=== PATIENT | female | born 1940 | race Caucasian/White ===

== ENCOUNTER → 2020-07-30 11:50 | Outpatient (BNVA) | payer MEDICARE, SELFPAY | PROVIDERS: PCP Internal Medicine; Referring Provider Internal Medicine; Visit Provider Internal Medicine Gastroenterology | DX: K21.9 Gastro-esophageal reflux disease without esophagitis (principal); K59.00 Constipation, unspecified; D50.9 Iron deficiency anemia, unspecified; R15.9 Full incontinence of feces; Z12.11 Encounter for screening for malignant neoplasm of colon; Z79.84 Long term (current) use of oral hypoglycemic drugs; Z87.891 Personal history of nicotine dependence | CPT/HCPCS: Q3014 ==

== ENCOUNTER → 2020-10-15 12:28 | Outpatient (BNVA) | payer MEDICARE, SELFPAY | PROVIDERS: PCP Internal Medicine; Visit Provider Internal Medicine Cardiovascular Disease | DX: Z45.018 Encounter for adjustment and management of other part of cardiac pacemaker (principal) | CPT/HCPCS: 99212 ==

== ENCOUNTER 2020-10-26 08:59 | Outpatient (REF) | payer MEDICARE, SELFPAY ==
[2020-10-26 09:34] LABS: MANUAL DIFF FLAG NO
[2020-10-26 09:40] LABS: Glucose Urine UA NEG (NEG); Leukocyte Esterase Urine 1+ (NEG); Nitrite Urine NEG (NEG); PH 5.5 (5.0-8.0); Specific Gravity - Urine 1.025 (1.005-1.025); UACC Culture Trigger YES; Urine Blood NEG (NEG); Urine Ketones NEG (NEG); Urine Protein NEG (NEG-TRACE)
[2020-10-26 09:41] LABS: Appearance Urine CLEAR; Color Urine YELLOW
[2020-10-26 09:44] LABS: Basophils Percent Auto 0.3 % (0-2); Eosinophils Absolute Auto 0.1 X10*3/uL (0.0-0.4); Eosinophils Percent Auto 1.4 % (0-4); Hematocrit 34.5 % (37-47); Hemoglobin 11.1 g/dl (12.0-16.0); Imm Gran Abs Auto 0.03 X10*3/uL (0.00-0.03); Imm Gran Pct Auto 0.5 % (0.0-0.4); Lymphocytes Absolute Auto 1.6 X10*3/uL (1.2-4.9); Mean Corpuscular HGB Conc 32.2 g/dl (31.0-35.0); Mean Corpuscular Hemoglobin 30.1 pg (27.0-33.0); Mean Corpuscular Volume 93.5 fL (80-98); Mean Platelet Volume 10.5 fL (9.4-12.3); Monocytes Absolute Auto 0.6 X10*3/uL (0.1-1.2); Monocytes Percent Auto 9.7 % (2-11); Neutrophils Absolute Auto 3.5 X10*3/uL (2.0-8.3); Neutrophils Percent Auto 61.1 % (45-73); Platelet Count 288 X10*3/uL (160-400); Red Blood Count 3.69 X10*6/uL (4.20-5.50); Red Cell Distribution Width 13.7 % (11.0-16.0); White Blood Count 5.8 X10*3/uL (4.8-10.8)
[2020-10-26 10:05] LABS: Alanine Aminotransferase 10 U/L (0-31); Albumin Level 4.6 g/dL (3.5-5.0); Alkaline Phosphatase 72 U/L (39-117); Anion Gap 16 (12-20); Aspartate Amino Transferase 18 U/L (5-31); Bilirubin Total 0.5 mg/dL (0.0-1.0); Blood Urea Nitrogen 22 mg/dL (9-16); Calcium 9.1 mg/dL (8.4-10.2); Carbon Dioxide 20 mmol/L (22-29); Chloride 111 mmol/L (96-108); Cholesterol 132 mg/dL; Estimated Glomerular Filt Rate 33; Glucose Fasting 122 mg/dL (60-99); HDL Cholesterol 60 mg/dL; LDL Cholesterol Calculated 56 mg/dl; Potassium 4.5 mmol/L (3.3-5.1); Sodium 142 mmol/L (135-145); Total Protein 7.6 g/dL (6.5-8.0); Triglycerides 83 mg/dL
[2020-10-26 10:28] LABS: TSH reflex Free T4 1.53 uIU/mL (0.32-4.0)
[2020-10-26 11:16] LABS: Bacteria Urine TRACE /LPF; Mucus Urine 1+ /LPF; RBC Urine 0 /HPF (0); Squamous Epithelial Cell Urine 1+ /LPF
[2020-10-30 18:22] LABS: Levetiracetam Keppra 66.7 mcg/mL (12.0-46.0)
== END 2020-10-26 09:00 | disposition home or self-care (01) ==
LOC: HO.LAB 08:59
PROVIDERS: PCP Internal Medicine; Visit Provider Internal Medicine
DX: D64.9 Anemia, unspecified (principal); E53.8 Deficiency of other specified B group vitamins; K21.9 Gastro-esophageal reflux disease without esophagitis; E78.00 Pure hypercholesterolemia, unspecified; E11.40 Type 2 diabetes mellitus with diabetic neuropathy, unspecified; G40.909 Epilepsy, unspecified, not intractable, without status epilepticus; E66.3 Overweight
CPT/HCPCS: 36415; 80053; 80061; 80177; 81001; 81003; 82043; 84443; 85025; 87086

== ENCOUNTER 2021-04-20 12:58 | Outpatient (REF) | payer MEDICARE, SELFPAY ==
--- NOTE | ~2021-04-20 | MM_ITS ---
EXAMINATION: BONE DENSITOMETRY CLINICAL INDICATION: Asymptomatic menopausal state. COMPARISON: Baseline BD dated 03/27/2008. TECHNIQUE: Using a [employer] DXA System (software version: 13.1) manufactured by [employer], dual-energy x-ray absorptiometry was performed of the lumbar spine and left hip. The images are of good technical quality. Summary results are attached. FINDINGS: AP SPINE L1-L4: Current: BMD 0.847 g/cm2, Z-score -0.4, T-score -2.8, osteoporosis, 1.6% increase from baseline (<5% change is not significant). Baseline: BMD 0.834 g/cm2. LEFT FEMUR, NECK: Current: BMD 0.607 g/cm2, Z-score -0.6, T-score -3.1, osteoporosis. Baseline: BMD 0.682 g/cm2. LEFT FEMUR, TOTAL: Current: BMD 0.703 g/cm2, Z-score 0.0, T-score -2.4, osteopenia, 10.9% decrease from baseline (<5% change is not significant). Baseline: BMD 0.789 g/cm2. IDENTIFIED RISK FACTORS: Early menopause, secondary osteoporosis, hysterectomy, unilateral oophorectomy, history of fracture (adult). HISTORY OF FRACTURE: Ankle. MEDICATIONS: Calcium supplements or multivitamin, vitamin D. MM/XR DEXA axial skeleton IMPRESSION: 1. DIAGNOSIS: Osteoporosis based on the lowest T-score value of -3.1 in the femoral neck applying World Health Organization criteria. 2. 10-YEAR FRACTURE RISK PREDICTION, FRAX: Major osteoporotic fracture (clinical spine, forearm, hip or shoulder) 23.2%. Hip fracture 8.8%. 3. Treatment Recommendations: NOF guidelines recommend consideration for treatment in postmenopausal women and men age 50 and older presenting with the following: -A hip or vertebral (clinical or morphometric) fracture. -T-score less than or equal to -2.5 at the femoral neck or spine after appropriate evaluation to exclude secondary causes. -Low bone mass at the hip or spine and a 10-year fracture probability by FRAX of greater than or equal to 3% for hip fracture or greater than or equal to 20% for major osteoporotic fracture based on the [place] adapted WHO algorithm. 4. Other Recommendations: All treatment decisions require clinical judgment and consideration of individual patient factors, including patient preferences, comorbidities, previous drug use, risk factors not captured in the FRAX model (e.g. frailty, falls, vitamin D deficiency, increased bone turnover, interval significant decline in bone density) and possible under or overestimation of fracture risk by FRAX. Additional medical evaluation for secondary cause of low bone mineral density may be appropriate. FUTURE SCAN RECOMMENDATION: People with diagnosed cases of osteoporosis or at high risk for fracture should have regular bone mineral density tests. For patients eligible for Medicare, routine testing is allowed once every 2 years. The testing frequency can be increased to one year for patients who have rapidly progressing disease, those who are receiving or discontinuing medical therapy to restore bone mass, or have additional risk factors.
== END 2021-04-20 12:59 | disposition home or self-care (01) ==
LOC: HO.MAMMO 12:58
PROVIDERS: PCP Internal Medicine; Visit Provider Internal Medicine
DX: Z13.820 Encounter for screening for osteoporosis (principal); M81.0 Age-related osteoporosis without current pathological fracture; Z78.0 Asymptomatic menopausal state; Z98.890 Other specified postprocedural states; Z87.81 Personal history of (healed) traumatic fracture
CPT/HCPCS: 77080

== ENCOUNTER 2021-06-10 09:57 | Outpatient (REF) | payer MEDICARE, SELFPAY ==
[2021-06-10 10:10] LABS: MANUAL DIFF FLAG NO
[2021-06-10 10:53] LABS: Basophils Percent Auto 0.7 % (0-2); Eosinophils Absolute Auto 0.1 X10*3/uL (0.0-0.4); Eosinophils Percent Auto 1.8 % (0-4); Hematocrit 32.9 % (37-47); Hemoglobin 10.6 g/dl (12.0-16.0); Imm Gran Abs Auto 0.02 X10*3/uL (0.00-0.03); Imm Gran Pct Auto 0.4 % (0.0-0.4); Lymphocytes Absolute Auto 1.8 X10*3/uL (1.2-4.9); Lymphocytes Percent Auto 40.4 % (20-40); Mean Corpuscular HGB Conc 32.2 g/dl (31.0-35.0); Mean Corpuscular Volume 90.1 fL (80-98); Mean Platelet Volume 10.8 fL (9.4-12.3); Monocytes Absolute Auto 0.5 X10*3/uL (0.1-1.2); Monocytes Percent Auto 11.9 % (2-11); Neutrophils Percent Auto 44.8 % (45-73); Platelet Count 313 X10*3/uL (160-400); Red Blood Count 3.65 X10*6/uL (4.20-5.50); Red Cell Distribution Width 14.4 % (11.0-16.0); White Blood Count 4.5 X10*3/uL (4.8-10.8)
[2021-06-10 11:16] LABS: Appearance Urine CLEAR; Color Urine YELLOW; Glucose Urine UA NEG (NEG); Leukocyte Esterase Urine NEG (NEG); Nitrite Urine NEG (NEG); Specific Gravity - Urine 1.015 (1.005-1.025); Urine Blood NEG (NEG); Urine Ketones NEG (NEG); Urine Protein NEG (NEG-TRACE)
[2021-06-10 11:21] LABS: Alanine Aminotransferase 21 U/L (0-31); Albumin Level 4.4 g/dL (3.5-5.0); Alkaline Phosphatase 86 U/L (39-117); Anion Gap 12 (12-20); Aspartate Amino Transferase 27 U/L (5-31); Bilirubin Total 0.7 mg/dL (0.0-1.0); Blood Urea Nitrogen 15 mg/dL (9-16); Calcium 9.7 mg/dL (8.4-10.2); Carbon Dioxide 25 mmol/L (22-29); Chloride 109 mmol/L (96-108); Cholesterol 147 mg/dL; Estimated Glomerular Filt Rate 59; Glucose Fasting 130 mg/dL (60-99); HDL Cholesterol 51 mg/dL; Iron 73 mcg/dL (30-160); LDL Cholesterol Calculated 78 mg/dl; Percent Iron Saturation 20 % (15-50); Potassium 5.2 mmol/L (3.3-5.1); Sodium 141 mmol/L (135-145); Total Iron Binding Capacity 358 mcg/dL (228-428); Total Protein 7.3 g/dL (6.5-8.0); Triglycerides 90 mg/dL; Unsaturated Iron Binding 285 ug/dL
[2021-06-10 11:25] LABS: Estimated Average Glucose 157 mg/dL; Hemoglobin A1c % 7.1 %
[2021-06-10 11:46] LABS: TSH reflex Free T4 1.34 uIU/mL (0.32-4.0); Vitamin D 25-OH Total 39.9 ng/mL (>30)
[2021-06-10 11:50] LABS: Creatinine Urine 73.17 mg/dL
[2021-06-10 11:56] LABS: Folate 18.7 ng/mL (> or = 4.0); Vitamin B12 1291 pg/mL (200-900)
[2021-06-14 07:37] LABS: Levetiracetam Keppra 7.8 mcg/mL (12.0-46.0)
== END 2021-06-10 09:58 | disposition home or self-care (01) ==
LOC: HO.LAB 09:57
PROVIDERS: PCP Internal Medicine; Visit Provider Internal Medicine
DX: E78.00 Pure hypercholesterolemia, unspecified (principal); E55.9 Vitamin D deficiency, unspecified; D50.9 Iron deficiency anemia, unspecified; D64.9 Anemia, unspecified; E53.8 Deficiency of other specified B group vitamins; F03.90 Unspecified dementia, unspecified severity, without behavioral disturbance, psychotic disturbance, mood disturbance, and anxiety; I10 Essential (primary) hypertension; K21.9 Gastro-esophageal reflux disease without esophagitis; E11.40 Type 2 diabetes mellitus with diabetic neuropathy, unspecified; G47.62 Sleep related leg cramps; E66.3 Overweight; Z68.25 Body mass index [BMI] 25.0-25.9, adult; R00.1 Bradycardia, unspecified; G40.909 Epilepsy, unspecified, not intractable, without status epilepticus; K59.00 Constipation, unspecified; Z79.899 Other long term (current) drug therapy; Z71.3 Dietary counseling and surveillance
CPT/HCPCS: 36415; 80053; 80061; 80177; 81003; 82043; 82306; 82607; 82746; 83036; 83540; 84443; 85025; 99212

== ENCOUNTER 2021-09-27 09:52 | Outpatient (REF) | payer MEDICARE, SELFPAY ==
[2021-09-27 11:48] LABS: Hemoglobin 10.1 g/dl (12.0-16.0); Mean Corpuscular HGB Conc 31.6 g/dl (31.0-35.0); Mean Corpuscular Hemoglobin 28.9 pg (27.0-33.0); Mean Corpuscular Volume 91.4 fL (80.0-98.0); Mean Platelet Volume 11.1 fL (9.4-12.3); Platelet Count 227 X10*3/uL (160-400); Red Cell Distribution Width 14.9 % (11.0-16.0); White Blood Count 4.4 X10*3/uL (4.8-10.8)
[2021-09-27 14:40] LABS: Ferritin 39 ng/mL (10-250)
== END 2021-09-27 09:53 | disposition home or self-care (01) ==
LOC: HO.LAB 09:52
PROVIDERS: PCP Internal Medicine; Referring Provider Internal Medicine; Visit Provider Internal Medicine Gastroenterology
DX: D50.9 Iron deficiency anemia, unspecified (principal); K21.9 Gastro-esophageal reflux disease without esophagitis; K59.00 Constipation, unspecified; E53.8 Deficiency of other specified B group vitamins
CPT/HCPCS: 36415; 82728; 85027; 99212

== ENCOUNTER → 2021-09-28 11:02 | Outpatient (BNV) | payer MEDICARE, SELFPAY | PROVIDERS: PCP Internal Medicine; Referring Provider Internal Medicine Gastroenterology; Visit Provider Internal Medicine Medical Oncology | DX: D64.9 Anemia, unspecified (principal) | CPT/HCPCS: 99203; 99213; 99214 ==

== ENCOUNTER 2021-09-29 | Outpatient (REF) | payer MEDICARE, SELFPAY ==
[2021-10-04 14:42] LABS: OBS Int Ctl Valid YES; OBS1 NEGATIVE (NEGATIVE); OBS2 NEGATIVE (NEGATIVE); OBS3 NEGATIVE (NEGATIVE)
== END 2021-09-29 00:01 | disposition home or self-care (01) ==
LOC: HO.LNP
PROVIDERS: Visit Provider Internal Medicine Gastroenterology
DX: D50.9 Iron deficiency anemia, unspecified (principal)
CPT/HCPCS: 82270

== ENCOUNTER → 2021-10-14 13:10 | Outpatient (BNVA) | payer MEDICARE, SELFPAY | PROVIDERS: PCP Internal Medicine; Referring Provider Internal Medicine; Visit Provider Internal Medicine Cardiovascular Disease | DX: Z45.018 Encounter for adjustment and management of other part of cardiac pacemaker (principal); T82.847A Pain due to cardiac prosthetic devices, implants and grafts, initial encounter | CPT/HCPCS: 99212 ==

== ENCOUNTER → 2021-11-05 10:58 | Outpatient (BNVA) | payer MEDICARE, SELFPAY | PROVIDERS: PCP Internal Medicine; Visit Provider Surgery | DX: I49.5 Sick sinus syndrome (principal); Z79.899 Other long term (current) drug therapy; Z79.84 Long term (current) use of oral hypoglycemic drugs; Z87.891 Personal history of nicotine dependence; Z95.0 Presence of cardiac pacemaker | CPT/HCPCS: 99212 ==

== ENCOUNTER 2021-11-10 07:24 | Day surgery (SDC) | payer MEDICARE, SELFPAY ==
--- NOTE | 2021-11-09 10:03 | P.CONAN_ITS ---
Documented by User: Latonya Nguyen NP 11/09/21 10:07 HPI - Anesthesia Eval Consult details Narrative: 81yo F for Pacemaker Generator Change,pocket repair Pacer in situ (SSS) - significant mobility in pocket per cardiac eval PMFSH Active Problems Active Problems: All Active Problems (Updated 10/22/21 @ 12:45 by Ashley Lira PA-C) Dementia without behavioral disturbance (Acute) Epilepsy (Acute ~1998) Pain in pacemaker pocket (Acute) Cardiac pacemaker in situ (Acute ~2018) Sick sinus syndrome (Acute) Sinus bradycardia (Acute) Neuropathy (Acute) Diabetes mellitus (Acute) Pure hypercholesterolemia (Acute) Iron deficiency anemia (Acute) Normochromic normocytic anemia (Acute) Anemia (Acute) GERD (gastroesophageal reflux disease) (Acute) Constipation (Acute) Vitamin D deficiency (Acute) Vitamin B12 deficiency (Acute) Left arm swelling (Acute) Swelling of lymph node (Acute) Glaucoma (Acute) Insomnia (Acute) Nocturnal leg cramps (Acute) Degenerative joint disease (Acute) Osteoporosis (Acute ~2007) Overweight (BMI 25.0-29.9) (Acute) Post-menopausal (Acute) Past Medical History Medical History Anemia Cardiac pacemaker in situ (~2018) Constipation Degenerative joint disease Dementia without behavioral disturbance Diabetes mellitus Epilepsy (~1998) GERD (gastroesophageal reflux disease) Insomnia Left arm swelling Neuropathy Nocturnal leg cramps Osteoporosis (~2007) Overweight (BMI 25.0-29.9) Post-menopausal Pure hypercholesterolemia Sick sinus syndrome Sinus bradycardia Swelling of lymph node Tubular adenoma of colon (~2019) Vitamin B12 deficiency Vitamin D deficiency Family History Family History Father Medical history unknown Mother No problems noted. Daughter No problems noted. Son No problems noted. Other Substance use disorder Surgical History Surgical History History of ankle surgery (~2011) History of colonoscopy History of endoscopy History of hysterectomy History of pacemaker (~2018) History of partial gastrectomy Social History Social History Household Members: Family and Other Housing: House Are you a primary customer care voice consultant to a significant other at home: No Do you presently have visiting nurse or other home services: No Alcohol intake: never Patient Tobacco Use Status: Former Tobacco user Quit Date: 2011 Tobacco use type: Cigarette Second Hand Smoke Exposure: No Use of substances other than those prescribed or required for medical reasons: No Are you DNR?: No Advance Directives: No Advance Directives Information Provided: Yes 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 Meds Allergies Allergy/AdvReac Type Severity Reaction Status Date / Time Penicillins Allergy Intermediate RASH Verified 11/05/21 11:35 Home Medications Medication Instructions Recorded Confirmed Last Taken Type cyanocobalamin (vitamin B-12) 1,000 mcg PO DAILY 06/09/20 11/06/21 Unknown History 1,000 mcg capsule polyethylene glycol 3350 17 17 g PO DAILY 06/09/20 11/06/21 Unknown History gram/dose oral powder brimonidine 0.1 % eye drops 1 drp OPHTHALMIC (EYE) BID 12/03/20 11/06/21 Unknown History ropinirole 0.25 mg tablet 0.25 mg PO QPM 12/03/20 11/06/21 Unknown History cholecalciferol (vitamin D3) 50 50 mcg PO BID 09/28/21 11/06/21 Unknown History mcg (2,000 unit) tablet (Vitamin D3) levetiracetam 750 mg tablet 750 mg PO BID tab 10/14/21 11/06/21 Unknown History Exam Exam Date and Time: November 09, 2021 1003 Pertinent Lab Results Pertinent Lab Results: Laboratory Tests 09/28/21 09/28/21 13:09 13:09 WBC 4.9 Hgb 10.7 L Hct 34.0 L Plt Count 261 Sodium 142 Potassium 4.6 Chloride 112 H Carbon Dioxide 22 BUN 17 H Creatinine 0.92 Narrative Narrative: Cardiac Device Check 09/2021 Details: Dual-chamber Med[employer]onic pacemaker in place.? Programmed in MVP mode with rate response at 60 beats per minute.? No significant episodes of atrial fibrillation noted.? Atrial pacing 48.4% of the time.? Atrial ventricular sensing is adequate.? Battery life is excellent.? Atrial and ventricular pacing thresholds are excellent and reprogrammed to enhance battery life.? Pacing lead impedance is stable Assessment and Plan Assessment Anesthesia Assessment: Chart Reviewed Documented by User: Hong Alicea MD 11/10/21 09:47 [facility] Past Medical History Medical History Anemia Cardiac pacemaker in situ (~2018) Constipation Degenerative joint disease Dementia without behavioral disturbance Diabetes mellitus Epilepsy (~1998) GERD (gastroesophageal reflux disease) Insomnia Left arm swelling Neuropathy Nocturnal leg cramps Osteoporosis (~2007) Overweight (BMI 25.0-29.9) Post-menopausal Pure hypercholesterolemia Sick sinus syndrome Sinus bradycardia Swelling of lymph node Tubular adenoma of colon (~2019) Vitamin B12 deficiency Vitamin D deficiency Family History Family History Father Medical history unknown Mother No problems noted. Daughter No problems noted. Son No problems noted. Other Substance use disorder Family history of problems with anesthesia: No Surgical History Surgical History History of ankle surgery (~2011) History of colonoscopy History of endoscopy History of hysterectomy History of pacemaker (~2018) History of partial gastrectomy History of Problems with Anesthesia: No Social History Social History Household Members: Family and Other Housing: House Are you a primary customer care voice consultant to a significant other at home: No Do you presently have visiting nurse or other home services: No Alcohol intake: never Patient Tobacco Use Status: Former Tobacco user Quit Date: 2011 Tobacco use type: Cigarette Second Hand Smoke Exposure: No Use of substances other than those prescribed or required for medical reasons: No Are you DNR?: No Advance Directives: No Advance Directives Information Provided: Yes 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 Meds Allergies Allergy/AdvReac Type Severity Reaction Status Date / Time Penicillins Allergy Intermediate RASH Verified 11/05/21 11:35 Home Medications Medication Instructions Recorded Confirmed Last Taken Type cyanocobalamin (vitamin B-12) 1,000 mcg PO DAILY 06/09/20 11/06/21 Unknown History 1,000 mcg capsule polyethylene glycol 3350 17 17 g PO DAILY 06/09/20 11/06/21 Unknown History gram/dose oral powder brimonidine 0.1 % eye drops 1 drp OPHTHALMIC (EYE) BID 12/03/20 11/06/21 Unknown History ropinirole 0.25 mg tablet 0.25 mg PO QPM 12/03/20 11/06/21 Unknown History cholecalciferol (vitamin D3) 50 50 mcg PO BID 09/28/21 11/06/21 Unknown History mcg (2,000 unit) tablet (Vitamin D3) levetiracetam 750 mg tablet 750 mg PO BID tab 10/14/21 11/06/21 Unknown History Exam Airway Mallampati Class: II TM Dist: >3cm Neck ROM: Full Loose/Missing/Broken Teeth: Yes Heart: rrr+[id number], paced Lungs: cta b/l Assessment and Plan Assessment Anesthesia Assessment: Anesthesia Plan Discussed Final Anesthetic Review Family History of Problems with Anesthesia: No History of Problems with Anesthesia: No NPO: Yes ASA Class: III Final Preanesthetic Review: No Changes in Pt Med Stat, Meds/Allgs Chart Reviewed, Consent Obtained/Reviewed and Anes Risks/Benef Reviewed Patient Risk: Intermediate Procedure Risk: Low Assessment/Block/Sedation in SS: Assess/Block/Sedation-SS Anesthetic Plan Anesthetic Plan: MAC: and Agree w/ Assess. and Plan Disposition: Standard PACU
[2021-11-10] VITALS (8 sets, daily range): BP systolic 96–153; BP diastolic 47–78; PULSE 60–69; RESP 18; TEMP 36.8–36.9; O2SAT 98–100; BMI 22.8
[2021-11-10 08:27] LABS: Glucose, Whole Blood 108 mg/dL (60-115)
[2021-11-10] MEDS: Lactated Ringers 1,000 ML 100 ML IVCONT (08:40)
--- NOTE | 2021-11-10 09:06 | MHC.SHP ---
Pre-Procedural Eval Section A Date of Service: 11/10/21 The patient is an INPATIENT: No The History & Physical has been completed within 30 days and I have reviewed it.: Yes Section B Chief Complaint: Sick sinus syndrome Allergies: Allergies Allergy/AdvReac Type Severity Reaction Status Date / Time Penicillins Allergy Intermediate RASH Verified 11/05/21 11:35 Plan I have reviewed the history and physical and performed a pertinent physical examination on my patient. No changes have occurred unless specified.
[2021-11-10] MEDS: vancomycin HCL 1,000 MG in 0.9 % Sodium Chloride 250 ML 270 MG IV (09:42)
--- NOTE | 2021-11-10 11:01 | W.PM.OPN ---
Operative Note Operative Note Date of Service: 11/10/21 Narrative: Preoperative diagnosis: Pacemaker pocket dysfunction with movement of the device Postoperative diagnosis: Same Operation: pacemaker pocket revision with Tyrex mesh implantation Surgeon: Dano Arriola MD Specimens: None EBL: 5 cc Operation in detail: The patient was brought to the operating room, placed supine on the operating room table, anesthesia moderate of ices were placed, and the patient was gently sedated. A time-out was performed confirming the correct patient site and procedure. After injection of local anesthetic, a 3 cm incision was made in the left infraclavicular region over her previous scar. Electrocautery was used sparingly and most of the dissection was done with a Metzenbaum scissor. We carried the dissection down to the level of the generator and the leads were appropriately positioned behind the generator. We then opened the capsule with a fresh blade and extended this with the Metzenbaum scissor. We were able to pull the generator out of the pocket with some of the lead. The pocket was then expanded with combination of blunt and sharp dissection. We then placed the generator inside of the antibiotic mesh and using a 2 0 silk suture passed this through the suture hole in the generator and into the fascia medially of the pectoralis. This was then tacked down taught securing the generator to the pectoralis fascia. The generator with the mesh around it was then placed into the pocket which did fit quite snugly. The wound was then closed with a deep running 3-0 Vicryl suture followed by running 3-0 Vicryl suture and Dermabond glue in the skin. The patient was then brought back to the Recovery room in stable condition.
[2021-11-10] MEDS: Acetaminophen 325 MG TABLET 650 MG PO (11:47)
== END 2021-11-10 12:59 | disposition home or self-care (01) ==
PROVIDERS: PCP Internal Medicine; Visit Provider Surgery
PROC: (CPT 33222; principal; 2021-11-10 09:20)
DX: T82.128A Displacement of other cardiac electronic device, initial encounter (principal); T82.847A Pain due to cardiac prosthetic devices, implants and grafts, initial encounter; G89.18 Other acute postprocedural pain; Y83.8 Other surgical procedures as the cause of abnormal reaction of the patient, or of later complication, without mention of misadventure at the time of the procedure; Y92.9 Unspecified place or not applicable; Z95.0 Presence of cardiac pacemaker; E11.9 Type 2 diabetes mellitus without complications; Z79.84 Long term (current) use of oral hypoglycemic drugs; Z88.0 Allergy status to penicillin
CPT/HCPCS: 33222; 82947; J1100; J2405; J3010; J3370

== ENCOUNTER 2021-11-25 08:33 | Outpatient (REF) | payer MEDICARE, SELFPAY ==
[2021-11-25 08:43] LABS: MANUAL DIFF FLAG NO
[2021-11-25 09:43] LABS: Basophils Percent Auto 0.8 % (0-2); Eosinophils Absolute Auto 0.1 X10*3/uL (0.0-0.4); Eosinophils Percent Auto 1.9 % (0-4); Hemoglobin 10.6 g/dl (12.0-16.0); Imm Gran Abs Auto 0.01 X10*3/uL (0.00-0.03); Imm Gran Pct Auto 0.2 % (0.0-0.4); Lymphocytes Percent Auto 42.4 % (20-40); Mean Corpuscular HGB Conc 31.2 g/dl (31.0-35.0); Mean Corpuscular Hemoglobin 29.2 pg (27.0-33.0); Mean Corpuscular Volume 93.7 fL (80.0-98.0); Mean Platelet Volume 11.2 fL (9.4-12.3); Monocytes Absolute Auto 0.4 X10*3/uL (0.1-1.2); Monocytes Percent Auto 9.1 % (2-11); Neutrophils Absolute Auto 2.2 x10*3/uL (2.0-8.3); Neutrophils Percent Auto 45.6 % (45-73); Platelet Count 246 X10*3/uL (160-400); Red Blood Count 3.63 X10*6/uL (4.20-5.50); Red Cell Distribution Width 14.5 % (11.0-16.0); White Blood Count 4.7 X10*3/uL (4.8-10.8)
[2021-11-25 09:58] LABS: Appearance Urine CLEAR; Color Urine YELLOW; Glucose Urine UA 100 MG/DL (NEG); Leukocyte Esterase Urine NEG (NEG); Nitrite Urine NEG (NEG); PH 5.5 (5.0-8.0); Urine Blood NEG (NEG); Urine Ketones NEG (NEG); Urine Protein NEG (NEG-TRACE)
[2021-11-25 10:21] LABS: Estimated Average Glucose 148 mg/dL; Hemoglobin A1c % 6.8 %
[2021-11-25 10:24] LABS: Alanine Aminotransferase 22 U/L (0-31); Albumin Level 4.4 g/dL (3.5-5.0); Alkaline Phosphatase 73 U/L (39-117); Anion Gap 15 (12-20); Aspartate Amino Transferase 28 U/L (5-31); Bilirubin Total 0.7 mg/dL (0.0-1.0); Blood Urea Nitrogen 20 mg/dL (9-16); Calcium 9.4 mg/dL (8.4-10.2); Carbon Dioxide 16 mmol/L (22-29); Chloride 110 mmol/L (96-108); Cholesterol 132 mg/dL; Estimated Glomerular Filt Rate > 60; Glucose Fasting 106 mg/dL (60-99); HDL Cholesterol 50 mg/dL; Iron 70 mcg/dL (30-160); LDL Cholesterol Calculated 65 mg/dl; Percent Iron Saturation 23 % (15-50); Potassium 5.2 mmol/L (3.3-5.1); Sodium 136 mmol/L (135-145); Total Iron Binding Capacity 309 mcg/dL (228-428); Total Protein 7.4 g/dL (6.5-8.0); Triglycerides 87 mg/dL; Unsaturated Iron Binding 239 ug/dL
[2021-11-25 10:39] LABS: Creatinine Urine 40.57 mg/dL; Microalbum/Creatinine Ratio Ur 27.1 ug/mg cr
[2021-11-25 10:41] LABS: TSH reflex Free T4 1.16 uIU/mL (0.32-4.0); Vitamin D 25-OH Total 53.7 ng/mL (>30)
[2021-11-25 10:55] LABS: Vitamin B12 1414 pg/mL (200-900)
[2021-12-02 05:22] LABS: Levetiracetam Keppra 36.1 mcg/mL (12.0-46.0)
== END 2021-11-25 08:34 | disposition home or self-care (01) ==
LOC: HO.LAB 08:33
PROVIDERS: PCP Internal Medicine; Visit Provider Internal Medicine
DX: G40.909 Epilepsy, unspecified, not intractable, without status epilepticus (principal); D50.9 Iron deficiency anemia, unspecified; E11.9 Type 2 diabetes mellitus without complications; E55.9 Vitamin D deficiency, unspecified; E53.8 Deficiency of other specified B group vitamins; G62.9 Polyneuropathy, unspecified; E78.00 Pure hypercholesterolemia, unspecified; Z79.899 Other long term (current) drug therapy
CPT/HCPCS: 36415; 80053; 80061; 80177; 81003; 82043; 82306; 82607; 82746; 83036; 83540; 84443; 85025

== ENCOUNTER → 2021-11-26 09:36 | Outpatient (BNVA) | payer MEDICARE, SELFPAY | PROVIDERS: PCP Internal Medicine; Visit Provider Surgery | DX: Z45.018 Encounter for adjustment and management of other part of cardiac pacemaker (principal) | CPT/HCPCS: 99212 ==

== ENCOUNTER 2021-12-03 09:36 | Emergency (ER) | payer MEDICARE, SELFPAY ==
--- NOTE | ~2021-12-03 | XR_ITS ---
EXAMINATION: XR ABDOMEN KUB CLINICAL INDICATION: Evaluate stool burden COMPARISON: None TECHNIQUE: AP view of the abdomen. FINDINGS: The bowel gas pattern is normal with no evidence of ileus or obstruction. No unusual soft tissue calcifications are noted. Degenerative disease of the lumbar spine. Moderate amount of stool in the colon. XR/XR KUB IMPRESSION: Moderate amount of stool within the colon.
[2021-12-03 09:44] VITALS: BP 110/80; BP 182/77; PULSE 71; PULSE 80; RESP 22; TEMP 36.9; O2SAT 100; BMI 21.2
--- NOTE | 2021-12-03 10:06 | ED_ITS ---
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 Patient reports she feels a lot of rectal pain and pressure as well as some lower abdominal pain. No nausea, vomiting, urinary symptoms, fevers or chills. Patient taking Colace, senna p.r.n. and a daily bulk laxative she does not know the name a Related Data Home Medications Medication Instructions Recorded Confirmed cyanocobalamin (vitamin B-12) 1,000 mcg PO DAILY 06/09/20 11/26/21 1,000 mcg capsule polyethylene glycol 3350 17 17 g PO DAILY 06/09/20 11/26/21 gram/dose oral powder brimonidine 0.1 % eye drops 1 drp OPHTHALMIC (EYE) BID 12/03/20 11/26/21 ropinirole 0.25 mg tablet 0.25 mg PO QPM 12/03/20 11/26/21 cholecalciferol (vitamin D3) 50 50 mcg PO BID 09/28/21 11/26/21 mcg (2,000 unit) tablet (Vitamin D3) levetiracetam 750 mg tablet 750 mg PO BID tab 10/14/21 11/26/21 Previous Rx's Medication Instructions Recorded sennosides 8.6 mg capsule (senna) 8.6 mg PO DAILY PRN 30 Days #30 cap 06/10/21 docusate sodium 100 mg capsule 100 mg PO BID 90 Days #180 cap 08/27/21 (DOK) meclizine 25 mg tablet 25 mg PO TID PRN #90 tab 08/27/21 metformin 500 mg tablet 500 mg PO BID 90 Days #180 tab 08/27/21 acetaminophen 500 mg tablet 1,000 mg PO Q6H PRN 7 Days tab 11/10/21 (Tylenol Extra Strength) MDD 4000mg omeprazole 20 mg capsule,delayed 20 mg PO DAILY 90 Days #90 cap 11/28/21 release atorvastatin 40 mg tablet 40 mg PO BEDTIME #90 tab 11/29/21 cefpodoxime 100 mg tablet 100 mg PO BID #14 tab 12/03/21 lactulose 10 gram/15 mL oral 15 ml PO BEDTIME PRN #237 ml 12/03/21 solution Allergies Allergy/AdvReac Type Severity Reaction Status Date / Time Penicillins Allergy Intermediate RASH Verified 11/26/21 10:08 Review of Systems Review of Systems: Yes all other systems are reviewed and are negative Constitutional: Constitutional: Reports no additional constitutional complaints, Denies body ache(s), Denies chills, Denies fever(s), Denies headache(s) and Denies weakness Eyes: Eyes: Reports no additional eye complaints and Denies change in vision ENT: Reports system reviewed and no additional complaints, except as documented, Denies dizziness, Denies headache(s), Denies nasal congestion, Denies nasal discharge and Denies neck pain Cardiovascular: Cardiovascular: Reports no additional cardiovascular complaints, Denies chest pain, Denies leg edema and Denies dyspnea Respiratory: Respiratory: Reports no additional respiratory complaints, Denies cough and Denies dyspnea Gastrointestinal: Gastrointestinal: Reports no additional gastrointestinal complaints, Reports abdominal pain, Reports constipation, Denies diarrhea, Denies nausea and Denies vomiting Genitourinary: Genitourinary: Reports no additional female genitourinary complaints and Denies urinary incontinence Musculoskeletal: Musculoskeletal: Reports no additional musculoskeletal complaints, Denies back pain, Denies arthralgias, Denies joint swelling, Denies neck pain, Denies numbness and Denies tingling Integumentary/Breasts: Skin/Breast: Reports system reviewed and no additional complaints, except as docu and Denies rash Neurologic: Reports system reviewed and no additional complaints, except as documented, Denies dizziness, Denies headache(s), Denies numbness, Denies tingling and Denies weakness [facility] Past Medical History Attestation statement: The following information was validated with the patient. Source: old records reviewed and nursing notes reviewed Medical History Anemia Cardiac pacemaker in situ (~2018) Constipation Degenerative joint disease Dementia without behavioral disturbance Diabetes mellitus Epilepsy (~1998) GERD (gastroesophageal reflux disease) Insomnia Left arm swelling Neuropathy Nocturnal leg cramps Osteoporosis (~2007) Overweight (BMI 25.0-29.9) Post-menopausal Pure hypercholesterolemia Sick sinus syndrome Sinus bradycardia Swelling of lymph node Tubular adenoma of colon (~2019) Vitamin B12 deficiency Vitamin D deficiency Surgical History History of ankle surgery (~2011) History of colonoscopy History of endoscopy History of hysterectomy History of pacemaker (~2018) History of partial gastrectomy Family History Family History Father Medical history unknown Mother No problems noted. Daughter No problems noted. Son No problems noted. 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 ED Vital Signs: Vital Signs - 24 hr 12/03/21 09:44 12/03/21 12:13 Temperature 98.4 F 98.1 F Pulse Rate 71 73 Respiratory Rate 22 H 18 Blood Pressure 182/77 H 168/73 H Pulse Oximetry 100 98 BMI result Body Mass Index 21.2 Const General: cooperative, healthy appearing and comfortable Orientation/consciousness: patient oriented x3 Limitations: no limitations HENMT Head: Yes normal to inspection Ears: hearing grossly normal bilaterally General nose exam: Normal external nose present Face and sinus: Yes normal facial exam Mouth: Normal oral and palatal mucosa present Teeth and gingiva: dentition normal Throat: Yes posterior oropharynx normal, Yes tonsils normal and Yes uvula midline Eyes General: appearance normal, both eyes and all related structures Pupils: Equal, round and reactive pupils present Neck Neck: Yes normal visual inspection, Yes full ROM, Yes no lymphadenopathy and Yes no meningeal signs Chest Chest palpation & inspection: normal inspection of the chest Resp Effort & Inspection: normal respiratory effort Auscultation: clear to auscultation bilaterally Cardio Rate: regular rate Rhythm: regular rhythm Peripheral pulses: Peripheral pulses 2+ throughout GI Other: stool in rectum-hard. manual disimpactio Inspection: Yes normal to inspection Palpation (GI): Soft to palpation and Tenderness to palpation present (GI) (mild lower-no rebound or guarding) General: Yes no CVA tenderness Back/Spine/Pelvis Back: no CVA tenderness Thoracic/Lumbar Spine: thoracic and lumbar spine normal to inspection Skin General skin exam: no rashes or lesions noted Neuro General: patient oriented x3, moves all extremities and no meningeal signs Cranial nerves: Yes Equal, round and reactive pupils present Extrem General: Yes normal to inspection Course Course Course Narrative: 81-year-old female here with reports of constipation with rectal pain and pressure and some lower abdominal discomfort with no vomiting or focal abdominal pain on exam. Rectal exam shows a large amount of stool in the rectal vault. Will give enema, check KUB Reevaluation(s) Reevaluation #1: KUB shows a moderate stool burden. After the Fleet enema and manual disimpaction the patient had a large bowel movement is feeling improved. UA shows a mild UTI. No fever, no CVA tenderness. Patient is nontoxic appearing. Will start oral antibiotics. Plan for discharge home Time: 11:45 Medical Decision Making Medical Records Medical records reviewed: Yes I reviewed the patient's medical records. Lab Data Lab results reviewed: Yes I reviewed the patient's lab results. Labs: Lab Results 12/03/21 Range/Units 11:05 Urine Color STRAW Urine Appearance CLEAR Urine pH 6.0 (5.0-8.0) Ur Specific [place] <= 1.005 (1.005-1.025) Urine Protein NEG (NEG-TRACE) MG/DL Urine Glucose (UA) NEG (NEG) MG/DL Urine Ketones NEG (NEG) MG/DL Urine Blood NEG (NEG) Urine Nitrite NEG (NEG) Ur Leukocyte Esterase 1+ H (NEG) Urine RBC 0 (0) /HPF Urine WBC 5-9 H (0-4) /HPF Ur Squamous Epith Cells TRACE /LPF Urine Bacteria 1+ /LPF Imaging Data kub : Attestation: I personally reviewed and interpreted this imaging study as follows: Radiologist's impression: FINDINGS: The bowel gas pattern is normal with no evidence of ileus or obstruction. No unusual soft tissue calcifications are noted. Degenerative disease of the lumbar spine. Moderate amount of stool in the colon. XR/XR KUB IMPRESSION: Moderate amount of stool within the colon. Discharge Plan Discharge Clinical Impression: Constipation, Fecal impaction, Acute UTI Patient Disposition: Home, Self-Care Instructions: Constipation (DC), Fecal Impaction (ED), Fleet Enema (ED), Urinary Tract Infection in Older Adults (ED) Additional Instructions: the patient received an enema and had a large bowel movement while she was in the emergency department she should be taking MiraLax twice daily, Colace twice daily, senna as needed Prescriptions: New lactulose 10 gram/15 mL solution 15 ml PO BEDTIME PRN (Reason: constipation) Qty: 237 0RF cefpodoxime 100 mg tablet 100 mg PO BID Qty: 14 0RF Rx Instructions: must administer with a meal/food No Action omeprazole 20 mg capsule,delayed release(DR/EC) 20 mg PO DAILY 90 Days Qty: 90 1RF atorvastatin 40 mg tablet 40 mg PO BEDTIME Qty: 90 0RF cholecalciferol (vitamin D3) [Vitamin D3] 50 mcg (2,000 unit) Tablet 50 mcg PO BID 0RF acetaminophen [Tylenol Extra Strength] 500 mg tablet 1,000 mg PO Q6H MDD 4000mg PRN (Reason: pain) 7 Days 0RF brimonidine 0.1 % drops 1 drp ophthalmic (eye) BID 0RF ropinirole 0.25 mg tablet 0.25 mg PO QPM 0RF polyethylene glycol 3350 17 gram/dose powder 17 g PO DAILY 0RF cyanocobalamin (vitamin B-12) 1,000 mcg capsule 1,000 mcg PO DAILY 0RF meclizine 25 mg tablet 25 mg PO TID PRN (Reason: for dizziness) Qty: 90 0RF metformin 500 mg tablet 500 mg PO BID 90 Days Qty: 180 3RF docusate sodium [DOK] 100 mg capsule 100 mg PO BID 90 Days Qty: 180 3RF senna 8.6 mg capsule 8.6 mg PO DAILY PRN (Reason: constipation) 30 Days Qty: 30 3RF levetiracetam 750 mg tablet 750 mg PO BID 0RF Referrals: Physician,Unknown J [Primary Care Provider] - Interventions: ED Discharge Assessment Last Done: 12/03/21 13:26 Discharge Date/Time: 12/03/21 13:27
[2021-12-03] MEDS: Sodium Phosphate,Mono-Dibasic 133 ML ENEMA PR (11:05)
[2021-12-03 11:19] LABS: Appearance Urine CLEAR; Color Urine STRAW; Glucose Urine UA NEG (NEG); Leukocyte Esterase Urine 1+ (NEG); Nitrite Urine NEG (NEG); Specific Gravity - Urine <= 1.005 (1.005-1.025); UACC Culture Trigger YES; Urine Blood NEG (NEG); Urine Ketones NEG (NEG); Urine Protein NEG (NEG-TRACE)
[2021-12-03 11:29] LABS: Bacteria Urine 1+ /LPF; RBC Urine 0 /HPF (0); Squamous Epithelial Cell Urine TRACE /LPF
[2021-12-03 12:13] VITALS: BP 168/73; PULSE 73; RESP 18; TEMP 36.7; O2SAT 98
--- NOTE | 2021-12-03 12:14 | PC.NURSE ---
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
== END 2021-12-03 13:27 | disposition home or self-care (01) ==
PROVIDERS: Nurse Practitioner Family; Emergency Provider Emergency Medicine
DX: N39.0 Urinary tract infection, site not specified (principal); K56.41 Fecal impaction; K62.5 Hemorrhage of anus and rectum; Z79.899 Other long term (current) drug therapy; Z87.891 Personal history of nicotine dependence
CPT/HCPCS: 74018; 81001; 87086; 87088; 87186; 99283; 99284

== ENCOUNTER → 2021-12-30 11:13 | Outpatient (BNVA) | payer MEDICARE, SELFPAY | PROVIDERS: PCP Internal Medicine; Referring Provider Internal Medicine; Visit Provider Internal Medicine Gastroenterology | DX: Z45.018 Encounter for adjustment and management of other part of cardiac pacemaker (principal) | CPT/HCPCS: 93280; 99212 ==

== ENCOUNTER 2022-01-28 08:51 | Outpatient (REF) | payer MEDICARE, SELFPAY ==
[2022-01-28 09:22] LABS: MANUAL DIFF FLAG NO
[2022-01-28 09:36] LABS: Basophils Absolute Auto 0.1 X10*3/uL (0.0-0.2); Basophils Percent Auto 0.7 % (0-2); Eosinophils Absolute Auto 0.1 X10*3/uL (0.0-0.4); Eosinophils Percent Auto 1.4 % (0-4); Hematocrit 35.2 % (37.0-47.0); Imm Gran Abs Auto 0.03 X10*3/uL (0.00-0.03); Imm Gran Pct Auto 0.4 % (0.0-0.4); Lymphocytes Absolute Auto 1.8 X10*3/uL (1.2-4.9); Lymphocytes Percent Auto 25.3 % (20-40); Mean Corpuscular HGB Conc 31.3 g/dl (31.0-35.0); Mean Corpuscular Hemoglobin 28.6 pg (27.0-33.0); Mean Corpuscular Volume 91.7 fL (80.0-98.0); Mean Platelet Volume 11.6 fL (9.4-12.3); Monocytes Absolute Auto 0.9 X10*3/uL (0.1-1.2); Monocytes Percent Auto 12.2 % (2-11); Neutrophils Absolute Auto 4.4 x10*3/uL (2.0-8.3); Platelet Count 240 X10*3/uL (160-400); Red Blood Count 3.84 X10*6/uL (4.20-5.50); Red Cell Distribution Width 14.4 % (11.0-16.0); White Blood Count 7.2 X10*3/uL (4.8-10.8)
[2022-01-28 09:42] LABS: Estimated Average Glucose 146 mg/dL; Hemoglobin A1C 141.6865 umol/L; Hemoglobin A1c % 6.7 %
[2022-01-28 10:15] LABS: Alanine Aminotransferase 15 U/L (0-31); Albumin Level 4.3 g/dL (3.5-5.0); Alkaline Phosphatase 96 U/L (39-117); Anion Gap 16 (12-20); Aspartate Amino Transferase 22 U/L (5-31); Bilirubin Total 0.5 mg/dL (0.0-1.0); Blood Urea Nitrogen 15 mg/dL (9-16); Calcium 9.8 mg/dL (8.4-10.2); Carbon Dioxide 21 mmol/L (22-29); Chloride 106 mmol/L (96-108); Cholesterol 157 mg/dL; Estimated Glomerular Filt Rate > 60; Glucose Fasting 134 mg/dL (60-99); HDL Cholesterol 56 mg/dL; Iron 40 mcg/dL (30-160); LDL Cholesterol Calculated 83 mg/dl; Percent Iron Saturation 11 % (15-50); Potassium 5.2 mmol/L (3.3-5.1); Sodium 138 mmol/L (135-145); Total Iron Binding Capacity 359 mcg/dL (228-428); Total Protein 7.6 g/dL (6.5-8.0); Triglycerides 91 mg/dL; Unsaturated Iron Binding 319 ug/dL
[2022-01-28 10:34] LABS: TSH reflex Free T4 0.88 uIU/mL (0.32-4.0)
[2022-01-28 10:43] LABS: Ferritin 39 ng/mL (10-250)
[2022-01-28 11:46] LABS: Appearance Urine CLEAR; Color Urine YELLOW; Glucose Urine UA NEG (NEG); Leukocyte Esterase Urine 2+ (NEG); Nitrite Urine NEG (NEG); PH 6.5 (5.0-8.0); Specific Gravity - Urine <= 1.005 (1.005-1.025); UACC Culture Trigger YES; Urine Blood NEG (NEG); Urine Ketones NEG (NEG); Urine Protein NEG (NEG-TRACE)
[2022-01-28 11:56] LABS: Creatinine Urine 25.48 mg/dL; Microalbum/Creatinine Ratio Ur 23.5 ug/mg cr
[2022-01-28 12:29] LABS: Squamous Epithelial Cell Urine TRACE /LPF
[2022-01-28 12:30] LABS: Bacteria Urine TRACE /LPF; RBC Urine 0 /HPF (0)
== END 2022-01-28 08:52 | disposition home or self-care (01) ==
LOC: HO.LAB 08:51
PROVIDERS: Internal Medicine Medical Oncology; PCP Internal Medicine; Visit Provider Internal Medicine
DX: E78.00 Pure hypercholesterolemia, unspecified (principal); E55.9 Vitamin D deficiency, unspecified; E11.22 Type 2 diabetes mellitus with diabetic chronic kidney disease; I12.9 Hypertensive chronic kidney disease with stage 1 through stage 4 chronic kidney disease, or unspecified chronic kidney disease; N18.9 Chronic kidney disease, unspecified
CPT/HCPCS: 36415; 80053; 80061; 81001; 82043; 82306; 82728; 83036; 83540; 84443; 85025; 87086

== ENCOUNTER → 2022-03-31 10:16 | Outpatient (BNVA) | payer MEDICARE, SELFPAY | PROVIDERS: PCP Internal Medicine; Referring Provider Internal Medicine; Visit Provider Internal Medicine Gastroenterology | DX: D50.9 Iron deficiency anemia, unspecified (principal); K21.9 Gastro-esophageal reflux disease without esophagitis; K59.00 Constipation, unspecified; E53.8 Deficiency of other specified B group vitamins | CPT/HCPCS: 99212 ==

== ENCOUNTER 2022-05-01 12:41 | Emergency (ER) | payer MEDICARE, SELFPAY ==
--- NOTE | ~2022-05-01 | XR_ITS ---
EXAMINATION: XR CHEST CLINICAL INFORMATION: Seizure. Vomiting. Question aspiration. COMPARISON: Chest radiograph dated 01/16/2019. TECHNIQUE: 2 views of the chest were obtained. FINDINGS: No focal airspace consolidation. Diffuse interstitial prominence is unchanged. Left chest wall pacer with its leads overlying the right heart. Stable cardiomediastinal silhouette. No pleural effusion or pneumothorax. XR/XR chest 2V IMPRESSION: No acute cardiopulmonary findings.
--- NOTE | ~2022-05-01 | CT_ITS ---
EXAM: CT scan of the head and cervical spine. INDICATION: Reason for Exam sz, fall, head strike TECHNIQUE: A noncontrast CT scan was performed from the skull base to the vertex. A noncontrast CT scan of the cervical spine was performed from the base of the skull through T1 at 2.5 mm and 1.25 mm collimation. Coronal and sagittal reformats were obtained at the acquisition workstation. This CT examination was performed using dose optimization techniques as appropriate, variously including the following: *Automated exposure control *Adjustment of mA and/or kV according to patient size (this includes techniques or standardized protocols for targeted exams where dose is matched to indication/reason for exam; i.e. extremities or head) *Use of iterative reconstruction technique DLP: 229 and 640 mGy-cm COMPARISON: 10/04/2019 FINDINGS: Head: There is no evidence of acute intracranial hemorrhage or territorial infarction. Green-white matter differentiation is preserved. No abnormal mass effect or midline shift. No extra-axial fluid collections. No abnormal attenuation is demonstrated within the brain parenchyma. Scattered periventricular and deep white matter hypodensities consistent with microangiopathy. The ventricles and sulcal spaces are proportional without hydrocephalus. Proportional prominence of the ventricles and sulcal spaces. No acute osseous or soft tissue abnormalities. The mastoid air cells and visualized portions of the paranasal sinuses are well aerated. Cervical Spine: The atlantooccipital and atlantoaxial articulations remain well aligned. Straightening of the normal cervical lordosis. Otherwise, there is anatomic alignment of the vertebral bodies and posterior elements. No evidence of acute fracture or subluxation. The vertebral body heights and disc spaces are maintained. There is no prevertebral soft tissue swelling. The thyroid gland and remaining cervical soft tissues are normal in appearance. The lung apices demonstrate no abnormalities. CT/CT cervical spine wo IV con IMPRESSION: No acute intracranial pathology. No acute fracture subluxation cervical spine.
[2022-05-01 13:26] VITALS: BP 140/66; BP 159/58; PULSE 77; PULSE 92; RESP 16; TEMP 36.6; O2SAT 96; O2SAT 99; BMI 14.2
--- NOTE | 2022-05-01 13:49 | ECG_ITS ---
Test Reason : SEIZURE Blood Pressure : / mmHG Vent. Rate : 075 BPM Atrial Rate : 075 BPM P-R Int : 142 ms QRS Dur : 082 ms QT Int : 360 ms P-R-T Axes : 049 064 042 degrees QTc Int : 402 ms Normal sinus rhythm Normal ECG When compared with ECG of 13-JAN-2019 11:28, Premature atrial complexes are no longer Present Referred By: Laura Lyle Electronically Signed By:ADELINA SHAW
--- NOTE | 2022-05-01 13:59 | ED_ITS ---
HPI - Seizure General Chief Complaint: Seizure Stated Complaint: SZ PER EMS Time Seen by Provider: 05/01/22 13:21 Source: patient Mode of arrival: EMS Limitations: no limitations History of Present Illness HPI Narrative: patient presents to the emergency department via EMS evaluation after a seizure. Seizure was witnessed by her roommate. It is unclear according to his report whether she first had a seizure subsequently fell to the ground or if she first fell to the ground and subsequently had a seizure. He reports that it all happened too quickly and he is not certain. States that once she had fallen fr om the kitchen chair onto the ground she struck her head and appeared to be having what is described as a tonic clonic seizure with movement of all of her extremities. Prior to this she was eating watermelon, during the seizure she was noted to be spitting out the watermelon. The patient's roommate put alcohol beneath her nose and she quickly stopped having seizure-like activity in the ambulance was subsequently called. Patient's son is also at bedside, he reports that he facilitates patient's medication administration by placing into medication administration box states sometimes she seems to forget to take the medications despite his reminding her. Is unclear exactly how many days in the recent past that she has forgotten to take the medications. Patient currently with no physical complaints, denies headache, dizziness, lightheadedness chest pain, shortness of breath, difficulty breathing, nausea, vomiting, abdominal pain, urinary frequency, weakness, numbness or tingling of her extremities. family reports last tonic-clonic seizure to be a few years ago, however her son does report that she has small seizures typically around the time that he notices that she has missed medication dosages. Related Data Home Medications Medication Instructions Recorded Confirmed cyanocobalamin (vitamin B-12) 1,000 mcg PO DAILY 06/09/20 04/20/22 1,000 mcg capsule cholecalciferol (vitamin D3) 50 50 mcg PO BID 09/28/21 04/20/22 mcg (2,000 unit) tablet (Vitamin D3) latanoprost 0.005 % eye drops 1 drp ophthalmic (eye) BEDTIME 12/30/21 04/20/22 levetiracetam 750 mg tablet 750 mg PO BID 12/30/21 04/20/22 Previous Rx's Medication Instructions Recorded acetaminophen 500 mg tablet 1,000 mg PO Q6H PRN pain 7 days 11/10/21 (Tylenol Extra Strength) polyethylene glycol 3350 17 17 g PO DAILY 60 days #1,020 grams 12/30/21 gram/dose oral powder omeprazole 20 mg capsule,delayed 20 mg PO DAILY 90 days #90 caps 03/02/22 release atorvastatin 40 mg tablet 40 mg PO BEDTIME #90 tabs 03/21/22 docusate sodium 100 mg capsule 100 mg PO BID for constipation 90 03/31/22 (DOK) days #180 caps sennosides 8.6 mg capsule (senna) 8.6 mg PO DAILY PRN constipation 03/31/22 90 days #90 caps gabapentin 100 mg capsule 200 mg PO BEDTIME 30 days #60 caps 04/20/22 metformin 500 mg tablet 500 mg PO BID 90 days #180 tabs 04/20/22 cefpodoxime 100 mg tablet 100 mg PO BID 7 days #14 tabs 05/01/22 Allergies Allergy/AdvReac Type Severity Reaction Status Date / Time Penicillins Allergy Intermediate RASH Verified 05/01/22 13:28 Review of Systems Review of Systems: Constitutional: No weight loss. No fever. No chills. No weakness. No fatigue. ENT: No sore throat. No rhinorrhea. No nasal congestion. No sore throat. No difficulty swallowing. Skin: No rash. No itching. Cardiovascular: No chest pain. No chest pressure. No palpitations. No pedal edema. Respiratory: No shortness of breath. No cough. No sputum production. Gastrointestinal: No anorexia. No nausea. No vomiting. No diarrhea. No abdominal pain. No blood in stool. Genitourinary: No burning micturition. No urinary frequency. No incontinence. Neurologic: No headache. No dizziness. No pre-syncope/ syncope. No unilateral weakness. No ataxia. No numbness. No tingling. No change in bowel or bladder control. Musculoskeletal: No muscle pain. No back pain. No joint pain. No stiffness. Hematologic: No bleeding. No bruising. Lymphatics: No enlarged lymph nodes. Psychiatric:No depression. No anxiety. Endocrine: No polyuria. No polydipsia. Yes all other systems are reviewed and are negative PMFSH Past Medical History Attestation statement: The following information was validated with the patient. Source: old records reviewed Medical History Anemia Cardiac pacemaker in situ (~2018) Constipation Degenerative joint disease Dementia without behavioral disturbance Diabetes mellitus Epilepsy (~1998) GERD (gastroesophageal reflux disease) Insomnia Left arm swelling Neuropathy Nocturnal leg cramps Osteoporosis (~2007) Overweight (BMI 25.0-29.9) Post-menopausal Pure hypercholesterolemia Sick sinus syndrome Sinus bradycardia Swelling of lymph node Tubular adenoma of colon (~2019) Vitamin B12 deficiency Vitamin D deficiency Surgical History History of ankle surgery (~2011) History of colonoscopy History of endoscopy History of hysterectomy History of pacemaker (~2018) History of partial gastrectomy Family History Family History Father Medical history unknown Mother No problems noted. Daughter No problems noted. Son No problems noted. Other Substance use disorder Social History Social History Household Members: Children Housing: House Are you a primary rn long term care to a significant other at home: No Do you presently have visiting nurse or other home services: No Alcohol intake: never Patient Tobacco Use Status: Former Tobacco user Quit Date: 2011 Tobacco use type: Cigarette Second Hand Smoke Exposure: No Advance Directives: No Advance Directives Information Provided: Yes service: No Current occupational status: retired Current occupation: [employer] Cognitive needs: No Hearing needs: No Vision needs: Yes Physical Exam Vital Signs: Vital Signs: Last Vital Signs Temp 97.9 F 05/01/22 13:26 Pulse 77 05/01/22 13:26 Resp 16 05/01/22 13:26 BP 159/58 H 05/01/22 13:26 Pulse Ox 99 05/01/22 13:26 O2 Del Method 05/01/22 13:26 BMI result Body Mass Index 14.2 Appearance: Alert.?Oriented to person, place and time. No acute distress.?Normal affect. Eyes: Pupils equal, round and reactive to light.?EOMi. No nystagmus ENT: Pharynx normal.?? Neck: Normal inspection.? Neck supple.?? no midline cervical spine tenderness, step-offs, deformities CVS: Heart sounds normal. Normal heart rate and rhythm.? Pulses normal.?? Respiratory: No respiratory distress.? Lung sounds clear to auscultation bilaterally?? Abdomen: Soft and non-tender. Normoactive bowel sounds. Skin: Skin warm and dry.? Normal skin color.? ?? Extremities: No lower extremity edema.? No calf ttp? Neuro: Moves all extremities spontaneously. Sensation intact bilaterally. CN II- XII intact. No focal neuro deficits. Ambulates with normal steady gait. Course Course Course Narrative: patient is an 81-year-old female with a past medical history of dementia, epilepsy, pacemaker, diabetes with neuropathy, hypercholesterolemia, iron deficiency anemia, GERD, degenerative joint disease. Presenting to emergency department for evaluation after a fall with head strike in seizure activity. No anticoagulants per family. Patient is taking Keppra as well as gabapentin. There is concern about medication noncompliance due to patient's dementia. Otherwise is able to ambulate and perform her ADLs independently. Will obtain labs, urinalysis, chest x-ray to exclude aspiration, CT of the head to exclude intracranial pathology/ICA/SAH. Reevaluation(s) Reevaluation #1: CBC reveals a normocytic anemia consistent with baseline otherwise overall unremarkable. CMP is unremarkable. Troponin <3.5, EKG revealed normal sinus rhythm without any acute ischemic concerns. CT of the head reveals no acute intracranial abnormality, no fracture or subluxation. Time: 16:00 Reevaluation #2: chest x-ray reveals no acute cardiopulmonary process. Urinalysis reveals small amount of leukocyte esterase, 6-10 WBC, no epithelial cells, may be consistent with early urinary tract infection, as infection may precipitate seizures, will begin patient on a course of oral antibiotics. Patient noted ambulatory with slow unsteady gait findings patient family. Discussed plan of care for discharge home, family declined evaluation for visiting nurse services home regarding medication discussed worsening signs and symptoms return back to the emergency department all questions were answered, patient discharged home in stable condition. Time: 17:14 MDM - Seizure Medical Records Attestation: I reviewed the patient's medical records. Lab Data Attestation: I reviewed the patient's lab results. Result diagrams: 05/01/22 14:21 05/01/22 14:22 Labs: Lab Results 05/01/22 05/01/22 05/01/22 Range/Units 14:21 14:21 14:22 WBC 6.1 (4.8-10.8) X10*3/uL RBC 4.24 (4.20-5.50) X10*6/uL Hgb 10.6 L (12.0-16.0) g/dl Hct 34.0 L (37.0-47.0) % MCV 80.2 (80.0-98.0) fL MCH 25.0 L (27.0-33.0) pg MCHC 31.2 (31.0-35.0) g/dl RDW 17.3 H (11.0-16.0) % Plt Count 328 (160-400) X10*3/uL MPV 9.6 (9.4-12.3) fL Immature Gran % (Auto) 0.5 H (0.0-0.4) % Neut % (Auto) 74.4 H (45-73) % Lymph % (Auto) 15.1 L (20-40) % Starke % (Auto) 9.0 (2-11) % Eos % (Auto) 0.7 (0-4) % Baso % (Auto) 0.3 (0-2) % Lymph # (Auto) 0.9 L (1.2-4.9) X10*3/uL Starke # (Auto) 0.6 (0.1-1.2) X10*3/uL Eos # (Auto) 0.0 (0.0-0.4) X10*3/uL Baso # (Auto) 0.0 (0.0-0.2) X10*3/uL Abs Immat Gran (auto) 0.03 (0.00-0.03) X10*3/uL Absolute Neuts (auto) 4.6 (2.0-8.3) x10*3/uL Absolute Nucleated RBC 0.000 (0.0-0.012) X10*3/uL Nucleated RBC % (auto) 0.0 (0.0-0.2) /100WBC Sodium 137 (135-145) mmol/L Potassium 5.0 (3.3-5.1) mmol/L Chloride 103 (96-108) mmol/L Carbon Dioxide 24 (22-29) mmol/L Anion Gap 15 (12-20) BUN 14 (9-16) mg/dL Creatinine 0.93 (0.5-1.4) mg/dL Estim Creat Clear Calc 26.9 Estimated GFR 58 Random Glucose 210 H (60-115) mg/dL Calcium 9.4 (8.4-10.2) mg/dL Magnesium 1.8 (1.6-2.6) mg/dL Total Bilirubin 0.8 (0.0-1.0) mg/dL AST 22 (5-31) U/L ALT 19 (0-31) U/L Alkaline Phosphatase 88 D (39-117) U/L Troponin I High Sens < 3.5 (<3.5-17.0) ng/L Total Protein 7.5 (6.5-8.0) g/dL Albumin 4.5 (3.5-5.0) g/dL Urine Color Urine Appearance Urine pH (5.0-9.0) Ur Specific [place] (1.005-1.025) Urine Protein (Neg-Trace) mg/dL Urine Glucose (UA) (Negative) mg/dL Urine Ketones (Negative) mg/dL Urine Blood (Negative) Urine Nitrite (Negative) Ur Leukocyte Esterase (Negative) Urine RBC (0-2) /HPF Urine WBC (0-5) /HPF Ur Squamous Epith Cells (0-2) /HPF Urine Bacteria (None Seen) Hyaline Casts (0-2) /LPF 05/01/22 Range/Units 15:46 WBC (4.8-10.8) X10*3/uL RBC (4.20-5.50) X10*6/uL Hgb (12.0-16.0) g/dl Hct (37.0-47.0) % MCV (80.0-98.0) fL MCH (27.0-33.0) pg MCHC (31.0-35.0) g/dl RDW (11.0-16.0) % Plt Count (160-400) X10*3/uL MPV (9.4-12.3) fL Immature Gran % (Auto) (0.0-0.4) % Neut % (Auto) (45-73) % Lymph % (Auto) (20-40) % Starke % (Auto) (2-11) % Eos % (Auto) (0-4) % Baso % (Auto) (0-2) % Lymph # (Auto) (1.2-4.9) X10*3/uL Starke # (Auto) (0.1-1.2) X10*3/uL Eos # (Auto) (0.0-0.4) X10*3/uL Baso # (Auto) (0.0-0.2) X10*3/uL Abs Immat Gran (auto) (0.00-0.03) X10*3/uL Absolute Neuts (auto) (2.0-8.3) x10*3/uL Absolute Nucleated RBC (0.0-0.012) X10*3/uL Nucleated RBC % (auto) (0.0-0.2) /100WBC Sodium (135-145) mmol/L Potassium (3.3-5.1) mmol/L Chloride (96-108) mmol/L Carbon Dioxide (22-29) mmol/L Anion Gap (12-20) BUN (9-16) mg/dL Creatinine (0.5-1.4) mg/dL Estim Creat Clear Calc Estimated GFR Random Glucose (60-115) mg/dL Calcium (8.4-10.2) mg/dL Magnesium (1.6-2.6) mg/dL Total Bilirubin (0.0-1.0) mg/dL AST (5-31) U/L ALT (0-31) U/L Alkaline Phosphatase (39-117) U/L Troponin I High Sens (<3.5-17.0) ng/L Total Protein (6.5-8.0) g/dL Albumin (3.5-5.0) g/dL Urine Color Yellow Urine Appearance Clear Urine pH 7.5 (5.0-9.0) Ur Specific [place] 1.015 (1.005-1.025) Urine Protein Negative (Neg-Trace) mg/dL Urine Glucose (UA) 500 H (Negative) mg/dL Urine Ketones Negative (Negative) mg/dL Urine Blood Negative (Negative) Urine Nitrite Negative (Negative) Ur Leukocyte Esterase Small (1+) H (Negative) Urine RBC 0-2 (0-2) /HPF Urine WBC 6-10 H (0-5) /HPF Ur Squamous Epith Cells 0-2 (0-2) /HPF Urine Bacteria None Seen (None Seen) Hyaline Casts 0-2 (0-2) /LPF Imaging Data CT scan - head: Radiologist's impression: CT/CT head/brain wo IV con IMPRESSION: No acute intracranial pathology. No acute fracture subluxation cervical spine. Chest x-ray: Radiologist's impression: XR/XR chest 2V IMPRESSION: No acute cardiopulmonary findings. ECG Data Attestation: I personally reviewed and interpreted this ECG as follows: ECG interpretation date: 05/01/22 Prior ECG tracings: available for review Interpretation: Rate: 75 Rhythm:? normal sinus rhythm [place]:? normal Normal P waves.? Normal ROSA MARIA.?? Normal QRS complex.?? ST T wave :?? no ST elevation, no ST depression, no T-wave inversion qTC:402 The study has been interpreted contemporaneously by me. Discharge Plan Discharge Clinical Impression: Seizure, Urinary tract infection Patient Disposition: Home, Self-Care Instructions: Urinary Tract Infection in Older Adults (ED), Epilepsy in Older Adults (ED) Additional Instructions: Continue taking all medications as currently prescribed, follow-up with primary care provider Within 3 days. You have been given a prescription for an antibiotic to treat a possible early urinary tract infection. infections can increase risk for seizures to occur. Please complete this entire course. Return to emergency department with any new or worsening symptoms or concerns, including but not limited to headache, dizziness, vision changes, chest pain, shortness of breath, confusion, inability to walk, numbness or tingling to arms r legs, fevers, chills, nausea, vomiting. Prescriptions: New cefpodoxime 100 mg tablet 100 mg PO BID 7 Days Qty: 14 0RF Rx Instructions: must administer with a meal/food No Action omeprazole 20 mg capsule,delayed release(DR/EC) 20 mg PO DAILY 90 Days Qty: 90 1RF atorvastatin 40 mg tablet 40 mg PO BEDTIME Qty: 90 0RF cholecalciferol (vitamin D3) [Vitamin D3] 50 mcg (2,000 unit) Tablet 50 mcg PO BID acetaminophen [Tylenol Extra Strength] 500 mg tablet 1,000 mg PO Q6H MDD 4000mg PRN (Reason: pain) 7 Days 0RF cyanocobalamin (vitamin B-12) 1,000 mcg capsule 1,000 mcg PO DAILY metformin 500 mg tablet 500 mg PO BID 90 Days Qty: 180 3RF gabapentin 100 mg capsule 200 mg PO BEDTIME 30 Days Qty: 60 3RF latanoprost 0.005 % drops 1 drp ophthalmic (eye) BEDTIME polyethylene glycol 3350 17 gram/dose powder 17 g PO DAILY 60 Days Qty: 1020 3RF levetiracetam 750 mg tablet 750 mg PO BID senna 8.6 mg capsule 8.6 mg PO DAILY PRN (Reason: constipation) 90 Days Qty: 90 1RF docusate sodium [DOK] 100 mg capsule 100 mg PO BID 90 Days Qty: 180 3RF Interventions: ED Discharge Assessment Last Done: 05/01/22 17:38 Discharge Date/Time: 05/01/22 17:41
[2022-05-01 14:25] LABS: MANUAL DIFF FLAG NO
[2022-05-01 14:29] LABS: Basophils Percent Auto 0.3 % (0-2); Eosinophils Percent Auto 0.7 % (0-4); Hemoglobin 10.6 g/dl (12.0-16.0); Imm Gran Abs Auto 0.03 X10*3/uL (0.00-0.03); Imm Gran Pct Auto 0.5 % (0.0-0.4); Lymphocytes Absolute Auto 0.9 X10*3/uL (1.2-4.9); Lymphocytes Percent Auto 15.1 % (20-40); Mean Corpuscular HGB Conc 31.2 g/dl (31.0-35.0); Mean Corpuscular Volume 80.2 fL (80.0-98.0); Mean Platelet Volume 9.6 fL (9.4-12.3); Monocytes Absolute Auto 0.6 X10*3/uL (0.1-1.2); Neutrophils Absolute Auto 4.6 x10*3/uL (2.0-8.3); Neutrophils Percent Auto 74.4 % (45-73); Platelet Count 328 X10*3/uL (160-400); Red Blood Count 4.24 X10*6/uL (4.20-5.50); Red Cell Distribution Width 17.3 % (11.0-16.0); White Blood Count 6.1 X10*3/uL (4.8-10.8)
[2022-05-01 14:44] LABS: Alanine Aminotransferase 19 U/L (0-31); Albumin Level 4.5 g/dL (3.5-5.0); Alkaline Phosphatase 88 U/L (39-117); Anion Gap 15 (12-20); Aspartate Amino Transferase 22 U/L (5-31); Bilirubin Total 0.8 mg/dL (0.0-1.0); Blood Urea Nitrogen 14 mg/dL (9-16); Calcium 9.4 mg/dL (8.4-10.2); Carbon Dioxide 24 mmol/L (22-29); Chloride 103 mmol/L (96-108); Creatinine Clr Calc Pharmacy 26.9; Estimated Glomerular Filt Rate 58; Glucose Random 210 mg/dL (60-115); Magnesium 1.8 mg/dL (1.6-2.6); Sodium 137 mmol/L (135-145); Total Protein 7.5 g/dL (6.5-8.0)
[2022-05-01 14:50] LABS: Troponin-I High Sensitivity < 3.5 ng/L (<3.5-17.0)
[2022-05-01 15:56] LABS: Appearance Urine Clear; Color Urine Yellow; Glucose Urine UA 500 mg/dL (Negative); Leukocyte Esterase Urine Small (1+) (Negative); Nitrite Urine Negative (Negative); PH 7.5 (5.0-9.0); Specific Gravity - Urine 1.015 (1.005-1.025); Urine Blood Negative (Negative); Urine Ketones Negative (Negative); Urine Protein Negative (Neg-Trace)
[2022-05-01 16:01] LABS: Bacteria Urine None Seen (None Seen); Hyaline Casts Urine 0-2 /LPF (0-2); RBC Urine 0-2 /HPF (0-2); Squamous Epithelial Cell Urine 0-2 /HPF (0-2); UACC Culture Trigger YES
[2022-05-01] MEDS: Acetaminophen 325 MG TABLET 650 MG PO (17:29)
[2022-05-04 17:18] LABS: Levetiracetam Keppra 13.7 mcg/mL (6.0-46.0)
== END 2022-05-01 17:41 | disposition home or self-care (01) ==
PROVIDERS: Nurse Practitioner Family; Emergency Provider Emergency Medicine; PCP Internal Medicine
DX: R56.9 Unspecified convulsions (principal); N39.0 Urinary tract infection, site not specified; R11.10 Vomiting, unspecified; M54.2 Cervicalgia; R06.02 Shortness of breath; Z79.899 Other long term (current) drug therapy
CPT/HCPCS: 36415; 70450; 71046; 72125; 80053; 80177; 81001; 83735; 84484; 85025; 87086; 93005; 99284

== ENCOUNTER 2022-05-04 13:52 | Outpatient (REF) | payer MEDICARE, SELFPAY | END 2022-05-04 13:53 | disposition home or self-care (01) | LOC: HO.MDS 13:52 | PROVIDERS: Visit Provider Internal Medicine Medical Oncology | DX: D50.9 Iron deficiency anemia, unspecified (principal) | CPT/HCPCS: 96365; J1756 ==

== ENCOUNTER 2022-05-26 09:51 | Outpatient (REF) | payer MEDICARE, SELFPAY ==
[2022-05-26 10:47] LABS: MANUAL DIFF FLAG NO
[2022-05-26 10:55] LABS: Basophils Percent Auto 0.6 % (0-2); Eosinophils Absolute Auto 0.1 X10*3/uL (0.0-0.4); Eosinophils Percent Auto 1.5 % (0-4); Hematocrit 36.1 % (37.0-47.0); Hemoglobin 11.2 g/dl (12.0-16.0); Imm Gran Abs Auto 0.01 X10*3/uL (0.00-0.03); Imm Gran Pct Auto 0.2 % (0.0-0.4); Lymphocytes Percent Auto 42.8 % (20-40); Mean Corpuscular Hemoglobin 25.2 pg (27.0-33.0); Mean Corpuscular Volume 81.1 fL (80.0-98.0); Mean Platelet Volume 11.1 fL (9.4-12.3); Monocytes Absolute Auto 0.4 X10*3/uL (0.1-1.2); Monocytes Percent Auto 7.8 % (2-11); Neutrophils Absolute Auto 2.2 x10*3/uL (2.0-8.3); Neutrophils Percent Auto 47.1 % (45-73); Platelet Count 294 X10*3/uL (160-400); Red Blood Count 4.45 X10*6/uL (4.20-5.50); Red Cell Distribution Width 19.9 % (11.0-16.0); White Blood Count 4.7 X10*3/uL (4.8-10.8)
[2022-05-26 11:23] LABS: Estimated Average Glucose 148 mg/dL; Hemoglobin A1c % 6.8 %
[2022-05-26 11:45] LABS: Alanine Aminotransferase 15 U/L (0-31); Albumin Level 4.4 g/dL (3.5-5.0); Alkaline Phosphatase 88 U/L (39-117); Anion Gap 16 (12-20); Aspartate Amino Transferase 21 U/L (5-31); Bilirubin Total 0.5 mg/dL (0.0-1.0); Blood Urea Nitrogen 15 mg/dL (9-16); Calcium 9.2 mg/dL (8.4-10.2); Carbon Dioxide 22 mmol/L (22-29); Chloride 102 mmol/L (96-108); Cholesterol 126 mg/dL; Estimated Glomerular Filt Rate > 60; Glucose Fasting 100 mg/dL (60-99); HDL Cholesterol 54 mg/dL; LDL Cholesterol Calculated 59 mg/dl; Potassium 4.7 mmol/L (3.3-5.1); Sodium 135 mmol/L (135-145); Total Protein 7.3 g/dL (6.5-8.0); Triglycerides 67 mg/dL
[2022-05-26 12:00] LABS: Vitamin D 25-OH Total 46.2 ng/mL (>30)
[2022-05-26 13:05] LABS: Appearance Urine Clear; Color Urine Yellow; Glucose Urine UA Negative (Negative); Leukocyte Esterase Urine Trace (Negative); Nitrite Urine Negative (Negative); PH 5.5 (5.0-9.0); Specific Gravity - Urine 1.015 (1.005-1.025); UMIC TRIGGER UACC YES; Urine Blood Negative (Negative); Urine Ketones Negative (Negative); Urine Protein Negative (Neg-Trace)
[2022-05-26 13:38] LABS: Creatinine Urine 62.81 mg/dL; Microalbum/Creatinine Ratio Ur 20.6 ug/mg cr
[2022-05-26 13:45] LABS: Bacteria Urine None Seen (None Seen); RBC Urine 0-2 /HPF (0-2); Squamous Epithelial Cell Urine 0-2 /HPF (0-2); WBC Urine 0-5 /HPF (0-5)
[2022-05-31 16:26] LABS: Levetiracetam Keppra 53.4 mcg/mL (6.0-46.0)
== END 2022-05-26 09:52 | disposition home or self-care (01) ==
LOC: HO.LAB 09:51
PROVIDERS: PCP Internal Medicine; Visit Provider Internal Medicine
DX: E78.00 Pure hypercholesterolemia, unspecified (principal); E55.9 Vitamin D deficiency, unspecified; E11.9 Type 2 diabetes mellitus without complications; I10 Essential (primary) hypertension; G40.909 Epilepsy, unspecified, not intractable, without status epilepticus
CPT/HCPCS: 36415; 80053; 80061; 80177; 81001; 81003; 82043; 82306; 83036; 84443; 85025

== ENCOUNTER 2022-06-02 11:57 | Emergency (ER) | payer MEDICARE, SELFPAY ==
--- NOTE | ~2022-06-02 | CT_ITS ---
EXAMINATION: CT CHEST WITHOUT CONTRAST CLINICAL INFORMATION: Chest wall pain COMPARISON: CT chest 06/11/2018 TECHNIQUE: Multidetector volumetric CT imaging of the chest was done. Axial MIP volume rendering provided. Sagittal and coronal reformatted images were obtained. This CT examination was performed using dose optimization techniques as appropriate, variously including the following: *Automated exposure control *Adjustment of mA and/or kV according to patient size (this includes techniques or standardized protocols for targeted exams where dose is matched to indication/reason for exam; i.e. extremities or head) *Use of iterative reconstruction technique DLP: 194 mGy-cm FINDINGS: CHEST WALL/AXILLA: No axillary lymphadenopathy. Left chest wall dual lead cardiac pacemaker leads terminating in the right nature and ventricle. LUNGS: Similar appearance of diffuse subpleural reticulation which may reflect a degree of underlying fibrosis. MEDIASTINUM: Heart is normal in size. No mediastinal lymphadenopathy. Lack of intravenous contrast limits evaluation for hilar adenopathy. Circumferential wall thickening involving the distal esophagus, recommend correlation with symptoms of reflux or esophagitis. Surgical clips at the gastroesophageal junction. CORONARY ARTERY CALCIFICATION: Coronary artery calcification is present. PLEURA: There is no pleural effusion. UPPER ABDOMEN: Punctate nonobstructing bilateral renal stones. OSSEOUS STRUCTURES: Stable sclerosis in the left anterior third rib which may reflect a bone island. CT/CT chest wo IV con IMPRESSION: No evidence of traumatic injury in the chest. Similar appearance of diffuse subpleural reticulation which may reflect a degree of underlying pulmonary fibrosis. Circumferential wall thickening involving the distal esophagus, recommend correlation with symptoms of reflux or esophagitis. Punctate bilateral nonobstructing renal stones.
--- NOTE | ~2022-06-02 | CT_ITS ---
EXAMINATION: CT HUMERUS WITHOUT CONTRAST, RIGHT CLINICAL INFORMATION: Pain, fall one week ago COMPARISON: None TECHNIQUE: Imaging with coronal and sagittal reformatted images. This CT examination was performed using dose optimization techniques as appropriate, variously including the following: *Automated exposure control *Adjustment of mA and/or kV according to patient size (this includes techniques or standardized protocols for targeted exams where dose is matched to indication/reason for exam; i.e. extremities or head) *Use of iterative reconstruction technique DLP: 194 mGy-cm FINDINGS: No fracture is seen. CT/CT humerus RT wo IV con IMPRESSION: No fracture of the right humerus
[2022-06-02 12:00] VITALS: BP 142/75; PULSE 94; RESP 18; TEMP 37.7; O2SAT 99; BMI 22.8
--- NOTE | 2022-06-02 12:04 | ECG_ITS ---
Test Reason : L ARM PAIN Blood Pressure : / mmHG Vent. Rate : 078 BPM Atrial Rate : 078 BPM P-R Int : 186 ms QRS Dur : 070 ms QT Int : 342 ms P-R-T Axes : 000 049 015 degrees QTc Int : 389 ms Atrial-paced rhythm Abnormal ECG Electronic ventricular pacemaker is new Referred By: Generic ED Physician Electronically Signed By:MARIA LUISA BAKER MD
[2022-06-02 14:39] VITALS: BP 142/57; PULSE 60; RESP 18; O2SAT 100
[2022-06-02] MEDS: Acetaminophen 325 MG TABLET 975 MG PO (14:52)
[2022-06-02] MEDS: Ketorolac Tromethamine 15 MG/ML VIAL IM (14:52)
[2022-06-02 16:14] LABS: MANUAL DIFF FLAG NO
[2022-06-02 16:17] LABS: Basophils Percent Auto 0.7 % (0-2); Eosinophils Absolute Auto 0.1 X10*3/uL (0.0-0.4); Eosinophils Percent Auto 1.4 % (0-4); Hematocrit 32.7 % (37.0-47.0); Hemoglobin 10.2 g/dl (12.0-16.0); Imm Gran Abs Auto 0.01 X10*3/uL (0.00-0.03); Imm Gran Pct Auto 0.2 % (0.0-0.4); Lymphocytes Absolute Auto 2.1 X10*3/uL (1.2-4.9); Lymphocytes Percent Auto 50.8 % (20-40); Mean Corpuscular HGB Conc 31.2 g/dl (31.0-35.0); Mean Corpuscular Hemoglobin 25.7 pg (27.0-33.0); Mean Corpuscular Volume 82.4 fL (80.0-98.0); Mean Platelet Volume 10.5 fL (9.4-12.3); Monocytes Absolute Auto 0.4 X10*3/uL (0.1-1.2); Monocytes Percent Auto 9.9 % (2-11); Neutrophils Absolute Auto 1.5 x10*3/uL (2.0-8.3); Platelet Count 183 X10*3/uL (160-400); Red Blood Count 3.97 X10*6/uL (4.20-5.50); Red Cell Distribution Width 20.2 % (11.0-16.0); White Blood Count 4.2 X10*3/uL (4.8-10.8)
[2022-06-02 16:42] VITALS: BP 133/53; PULSE 60; RESP 19; TEMP 36.6; O2SAT 98
[2022-06-02 16:50] LABS: Alanine Aminotransferase 16 U/L (0-31); Albumin Level 3.7 g/dL (3.5-5.0); Alkaline Phosphatase 74 U/L (39-117); Anion Gap 18 (12-20); Aspartate Amino Transferase 26 U/L (5-31); Bilirubin Total 0.4 mg/dL (0.0-1.0); Blood Urea Nitrogen 16 mg/dL (9-16); Calcium 8.8 mg/dL (8.4-10.2); Carbon Dioxide 17 mmol/L (22-29); Chloride 111 mmol/L (96-108); Creatinine Clr Calc Pharmacy 33.7; Estimated Glomerular Filt Rate > 60; Glucose Random 83 mg/dL (60-115); Sodium 141 mmol/L (135-145); Total Protein 6.4 g/dL (6.5-8.0)
--- NOTE | 2022-06-02 16:50 | ED.CHESTPAIN ---
HPI - Chest Pain General Chief Complaint: Chest Pain Stated Complaint: arm pain radiating to chest Time Seen by Provider: 06/02/22 14:05 Source: patient and family Mode of arrival: ambulatory History of Present Illness HPI narrative: 82-year-old female who presents after a seizure approximately 1 month ago and is complaining of right shoulder/right anterior chest wall pain that radiates across her chest especially with deep inspiration and movement. Patient denies any shortness of breath or difficulty breathing and denies any nausea or vomiting. Related Data Home Medications Medication Instructions Recorded Confirmed cyanocobalamin (vitamin B-12) 1,000 mcg PO DAILY 06/09/20 06/02/22 1,000 mcg capsule cholecalciferol (vitamin D3) 50 50 mcg PO BID 09/28/21 06/02/22 mcg (2,000 unit) tablet (Vitamin D3) latanoprost 0.005 % eye drops 1 drp ophthalmic (eye) BEDTIME 12/30/21 06/02/22 levetiracetam 750 mg tablet 750 mg PO BID 12/30/21 06/02/22 Previous Rx's Medication Instructions Recorded acetaminophen 500 mg tablet 1,000 mg PO Q6H PRN pain 7 days 11/10/21 (Tylenol Extra Strength) polyethylene glycol 3350 17 17 g PO DAILY 60 days #1,020 grams 12/30/21 gram/dose oral powder omeprazole 20 mg capsule,delayed 20 mg PO DAILY 90 days #90 caps 03/02/22 release atorvastatin 40 mg tablet 40 mg PO BEDTIME #90 tabs 03/21/22 docusate sodium 100 mg capsule 100 mg PO BID for constipation 90 03/31/22 (DOK) days #180 caps sennosides 8.6 mg capsule (senna) 8.6 mg PO DAILY PRN constipation 03/31/22 90 days #90 caps gabapentin 100 mg capsule 200 mg PO BEDTIME 30 days #60 caps 04/20/22 metformin 500 mg tablet 500 mg PO BID 90 days #180 tabs 04/20/22 cefpodoxime 100 mg tablet 100 mg PO BID 7 days #14 tabs 05/01/22 Allergies Allergy/AdvReac Type Severity Reaction Status Date / Time Penicillins Allergy Intermediate RASH Verified 06/02/22 11:21 Review of Systems Review of Systems: Pertinent positives and negatives as stated in HPI 10 point review of systems is otherwise negative. PMFSH Past Medical History Source: nursing notes reviewed Medical History Anemia Cardiac pacemaker in situ (~2018) Chest pressure Constipation Degenerative joint disease Dementia without behavioral disturbance Diabetes mellitus Epilepsy (~1998) GERD (gastroesophageal reflux disease) Insomnia Left arm swelling Neuropathy Nocturnal leg cramps Osteoporosis (~2007) Overweight (BMI 25.0-29.9) Post-menopausal Pure hypercholesterolemia Sick sinus syndrome Sinus bradycardia Swelling of lymph node Tubular adenoma of colon (~2019) Vitamin B12 deficiency Vitamin D deficiency Surgical History History of ankle surgery (~2011) History of colonoscopy History of endoscopy History of hysterectomy History of pacemaker (~2018) History of partial gastrectomy Family History Family History Father Medical history unknown Mother No problems noted. Daughter No problems noted. Son No problems noted. 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 GENERAL: Well developed, well nourished, in no acute distress. HEAD: Normocephalic/atraumatic EYES: PERRLA, EOMI EARS: Ext canals without abnormality OROPHARYNX: no oral lesions noted, posterior pharynx clear LUNGS: Normal breath sounds. No adventitious sounds or accessory muscle use. SpO2<98>; CHEST WALL: No pain on palpation, deformity, or crepitus. CARDIOVASCULAR: Regular rate and rhythm without noted murmurs ABDOMEN: Soft, non-tender, non-distended with bowel sounds. MUSCULOSKELETAL: No tenderness, deformities, or effusions noted on gross inspection. EXTREMITIES: No cyanosis, clubbing or edema; RIGHT UPPER EXTREMITY: Pain on palpation over right shoulder, full range of motion without pain on palpation at the right elbow/wrist SKIN: Inspection of the skin reveals no rashes NEUROLOGIC: Alert and oriented x 4. Strength and sensation to light touch were grossly intact x 4. Course Course Course Narrative: 82-year-old female with history and clinical presentation most suspicious for occult fracture, possibly at the time of for seizure last month. There is no evidence to suggest cardiopulmonary etiology or infectious etiology at this time. On review of all investigations there are no acute findings although CT of the chest is pending and signed out to MARGOT Rubin. MDM - Chest Pain Lab Data Result diagrams: 06/02/22 16:09 06/02/22 16:09 Labs: Lab Results 06/02/22 Range/Units 16:09 WBC 4.2 L (4.8-10.8) X10*3/uL RBC 3.97 L (4.20-5.50) X10*6/uL Hgb 10.2 L (12.0-16.0) g/dl Hct 32.7 L (37.0-47.0) % MCV 82.4 (80.0-98.0) fL MCH 25.7 L (27.0-33.0) pg MCHC 31.2 (31.0-35.0) g/dl RDW 20.2 H (11.0-16.0) % Plt Count 183 D (160-400) X10*3/uL MPV 10.5 (9.4-12.3) fL Immature Gran % (Auto) 0.2 (0.0-0.4) % Neut % (Auto) 37.0 L (45-73) % Lymph % (Auto) 50.8 H (20-40) % [place] % (Auto) 9.9 (2-11) % Eos % (Auto) 1.4 (0-4) % Baso % (Auto) 0.7 (0-2) % Lymph # (Auto) 2.1 (1.2-4.9) X10*3/uL [place] # (Auto) 0.4 (0.1-1.2) X10*3/uL Eos # (Auto) 0.1 (0.0-0.4) X10*3/uL Baso # (Auto) 0.0 (0.0-0.2) X10*3/uL Abs Immat Gran (auto) 0.01 (0.00-0.03) X10*3/uL Absolute Neuts (auto) 1.5 L (2.0-8.3) x10*3/uL Absolute Nucleated RBC 0.000 (0.0-0.012) X10*3/uL Nucleated RBC % (auto) 0.0 (0.0-0.2) /100WBC Discharge Plan Discharge Clinical Impression: Pain in right shoulder Patient Disposition: Still a Patient Prescriptions: No Action omeprazole 20 mg capsule,delayed release(DR/EC) 20 mg PO DAILY 90 Days Qty: 90 1RF atorvastatin 40 mg tablet 40 mg PO BEDTIME Qty: 90 0RF cholecalciferol (vitamin D3) [Vitamin D3] 50 mcg (2,000 unit) Tablet 50 mcg PO BID acetaminophen [Tylenol Extra Strength] 500 mg tablet 1,000 mg PO Q6H MDD 4000mg PRN (Reason: pain) 7 Days 0RF cefpodoxime 100 mg tablet 100 mg PO BID 7 Days Qty: 14 0RF Rx Instructions: must administer with a meal/food cyanocobalamin (vitamin B-12) 1,000 mcg capsule 1,000 mcg PO DAILY metformin 500 mg tablet 500 mg PO BID 90 Days Qty: 180 3RF gabapentin 100 mg capsule 200 mg PO BEDTIME 30 Days Qty: 60 3RF latanoprost 0.005 % drops 1 drp ophthalmic (eye) BEDTIME polyethylene glycol 3350 17 gram/dose powder 17 g PO DAILY 60 Days Qty: 1020 3RF levetiracetam 750 mg tablet 750 mg PO BID senna 8.6 mg capsule 8.6 mg PO DAILY PRN (Reason: constipation) 90 Days Qty: 90 1RF docusate sodium [DOK] 100 mg capsule 100 mg PO BID 90 Days Qty: 180 3RF
[2022-06-02 17:03] LABS: Troponin-I High Sensitivity < 3.5 ng/L (<3.5-17.0)
[2022-06-02 18:37] VITALS: BP 127/52; PULSE 60; RESP 18; O2SAT 98
[2022-06-02 19:30] VITALS: BP 118/63; PULSE 62; RESP 18; O2SAT 98
== END 2022-06-02 19:27 | disposition home or self-care (01) ==
PROVIDERS: Emergency Provider Student in an Organized Health Care Education/Training Program; PCP Internal Medicine
DX: M25.511 Pain in right shoulder (principal); R07.89 Other chest pain; Z91.81 History of falling; F03.90 Unspecified dementia, unspecified severity, without behavioral disturbance, psychotic disturbance, mood disturbance, and anxiety; E11.9 Type 2 diabetes mellitus without complications; D50.9 Iron deficiency anemia, unspecified; E78.00 Pure hypercholesterolemia, unspecified; Z95.0 Presence of cardiac pacemaker; Z79.02 Long term (current) use of antithrombotics/antiplatelets; Z79.899 Other long term (current) drug therapy
CPT/HCPCS: 36415; 71250; 73200; 80053; 84484; 85025; 93005; 96372; 99284; 99285; J1885

== ENCOUNTER → 2022-07-05 12:51 | Outpatient (BNVA) | payer MEDICARE, SELFPAY | PROVIDERS: PCP Internal Medicine; Referring Provider Internal Medicine; Visit Provider Internal Medicine Cardiovascular Disease | DX: Z45.018 Encounter for adjustment and management of other part of cardiac pacemaker (principal) | CPT/HCPCS: 93280; 99212 ==

== ENCOUNTER → 2022-10-13 09:35 | Outpatient (BNVA) | payer MEDICARE, SELFPAY | PROVIDERS: PCP Internal Medicine; Visit Provider Internal Medicine Gastroenterology | DX: D50.9 Iron deficiency anemia, unspecified (principal); K21.9 Gastro-esophageal reflux disease without esophagitis; K59.09 Other constipation; E53.8 Deficiency of other specified B group vitamins; E55.9 Vitamin D deficiency, unspecified | CPT/HCPCS: 99212 ==

== ENCOUNTER 2023-01-17 09:50 | Outpatient (REF) | payer MEDICARE, SELFPAY ==
[2023-01-17 10:19] LABS: MANUAL DIFF FLAG NO
[2023-01-17 10:51] LABS: Basophils Percent Auto 0.7 % (0-2); Eosinophils Absolute Auto 0.1 X10*3/uL (0.0-0.4); Hematocrit 35.2 % (37.0-47.0); Hemoglobin 11.3 g/dl (12.0-16.0); Imm Gran Abs Auto 0.03 X10*3/uL (0.00-0.03); Imm Gran Pct Auto 0.5 % (0.0-0.4); Lymphocytes Absolute Auto 1.9 X10*3/uL (1.2-4.9); Lymphocytes Percent Auto 31.9 % (20-40); Mean Corpuscular HGB Conc 32.1 g/dl (31.0-35.0); Mean Corpuscular Volume 96.7 fL (80.0-98.0); Mean Platelet Volume 10.8 fL (9.4-12.3); Monocytes Absolute Auto 0.5 X10*3/uL (0.1-1.2); Monocytes Percent Auto 9.2 % (2-11); Neutrophils Absolute Auto 3.3 x10*3/uL (2.0-8.3); Neutrophils Percent Auto 56.7 % (45-73); Platelet Count 235 X10*3/uL (160-400); Red Blood Count 3.64 X10*6/uL (4.20-5.50); Red Cell Distribution Width 14.1 % (11.0-16.0); White Blood Count 5.9 X10*3/uL (4.8-10.8)
[2023-01-17 11:00] LABS: Estimated Average Glucose 140 mg/dL; Hemoglobin A1C 148.7927 umol/L; Hemoglobin A1c % 6.5 %
[2023-01-17 12:06] LABS: Alanine Aminotransferase 31 U/L (0-31); Albumin Level 4.3 g/dL (3.5-5.0); Alkaline Phosphatase 67 U/L (39-117); Anion Gap 12 (12-20); Aspartate Amino Transferase 31 U/L (5-31); Bilirubin Total 0.7 mg/dL (0.0-1.0); Blood Urea Nitrogen 20 mg/dL (9-16); Calcium 9.8 mg/dL (8.4-10.2); Carbon Dioxide 23 mmol/L (22-29); Chloride 109 mmol/L (96-108); Cholesterol 169 mg/dL; Estimated Glomerular Filt Rate > 60; Glucose Fasting 109 mg/dL (60-99); HDL Cholesterol 63 mg/dL; LDL Cholesterol Calculated 90 mg/dl; Potassium 4.4 mmol/L (3.3-5.1); Sodium 140 mmol/L (135-145); Total Protein 7.3 g/dL (6.5-8.0); Triglycerides 83 mg/dL
[2023-01-17 12:42] LABS: Folate 15.8 ng/mL (> or = 4.0); TSH reflex Free T4 1.01 uIU/mL (0.32-4.0); Vitamin B12 > 2000 pg/mL (200-900); Vitamin D 25-OH Total 44.5 ng/mL (>30)
[2023-01-17 13:03] LABS: Appearance Urine Cloudy; Color Urine Yellow; Glucose Urine UA Negative (Negative); Leukocyte Esterase Urine Moderate (2+) (Negative); Nitrite Urine Negative (Negative); PH 5.5 (5.0-9.0); UMIC TRIGGER UACC YES; Urine Blood Negative (Negative); Urine Ketones Negative (Negative); Urine Protein Trace mg/dL (Neg-Trace)
[2023-01-17 13:19] LABS: Bacteria Urine 4+ (None Seen); Calcium Oxalate Crystals Urine Present; Hyaline Casts Urine 0-2 /LPF (0-2); Squamous Epithelial Cell Urine 0-2 /HPF (0-2); UACC Culture Trigger YES; WBC Urine >50 /HPF (0-5)
[2023-01-17 13:49] LABS: Creatinine Urine 98.35 mg/dL; Microalbum/Creatinine Ratio Ur 30.5 ug/mg cr
[2023-01-21 10:23] LABS: Levetiracetam Keppra 49.6 mcg/mL (6.0-46.0)
== END 2023-01-17 09:51 | disposition home or self-care (01) ==
LOC: HO.LAB 09:50
PROVIDERS: PCP Internal Medicine; Visit Provider Internal Medicine
DX: E78.00 Pure hypercholesterolemia, unspecified (principal); I10 Essential (primary) hypertension; E55.9 Vitamin D deficiency, unspecified; G40.909 Epilepsy, unspecified, not intractable, without status epilepticus; E11.9 Type 2 diabetes mellitus without complications; E53.8 Deficiency of other specified B group vitamins; R82.90 Unspecified abnormal findings in urine
CPT/HCPCS: 36415; 80053; 80061; 80177; 81001; 81003; 82043; 82306; 82607; 82746; 83036; 84443; 85025; 87086; 87088; 87186

== ENCOUNTER 2023-03-02 10:33 | Outpatient (AMB) | payer MEDICARE, SELFPAY ==
--- NOTE | 2023-03-02 10:39 | A.OFFVIS_ITS ---
Intake Vital Signs 03/02/23 10:46 Height 4 ft 8 in Weight 100 lb BMI 22.4 BP 122/56 L Blood Pressure Location Lt brachial Position Sitting Pulse 86 Intake Visit Reasons: 4 month follow up Intake Note: Patient 4 month follow up for chronic Constipation. Patient cc: abdominal pain on and off, abdominal burning sensation, and chronic constipation. Treating Engineer Required: No Accompanied by: Son Allergies Penicillins Allergy (Intermediate, Verified 03/02/23 10:37) RASH Medication List - Last Reconciled 03/02/23 by Lebron Milian MD acetaminophen (Tylenol Extra Strength) 1,000 mg (2 x 500 mg) PO Q6H PRN 7 days MDD 4000mg acetaminophen (Tylenol) 650 mg (2 x 325 mg) PO Q6H PRN atorvastatin 40 mg PO BEDTIME 90 days bisacodyl (Dulcolax (bisacodyl)) 5 mg PO BEDTIME cholecalciferol (vitamin D3) (Vitamin D3) 50 mcg PO BID cyanocobalamin (vitamin B-12) 1,000 mcg PO DAILY docusate sodium (DOK) 100 mg PO BID 90 days ferrous sulfate 325 mg PO DAILY 90 days gabapentin 300 mg PO BEDTIME 30 days latanoprost 0.005% 1 drp ophthalmic (eye) BEDTIME levetiracetam 750 mg PO BID metformin 500 mg PO BID 90 days omeprazole 20 mg PO DAILY 90 days polyethylene glycol 3350 17 grams PO DAILY 60 days sennosides (senna) 8.6 mg PO DAILY PRN HPI 4 month follow up HPI Details GI CLINIC VISIT FOR THIS 82-YEAR-OLD THAI-SPEAKING FEMALE FOLLOWED IN GI FOR GERD, CONSTIPATION AND RECTAL PROLAPSE: ?LABS IN [facility]:?01/27/20 CBC SHOWED MILD ANEMIA WITH H&H OF 10.2 AND 31.6, PLATELET 262, NORMAL CHEM PANEL AND LFTS, VITAMIN B12 1558, FOLATE 16.3 ?IMAGING STUDIES: NO RECENT GI IMAGING ?ENDOSCOPIC STUDIES: 02/13/20 EGD AND COLONOSCOPY SHOWED: ? STOMACH: Bilroth 1 Gastric anatomy. A 10 mm white nodule in the gastric b jazmyn - biopsied. Mild diffuse gastric erythema. Biopsies were obtained. Grade 2 flap valve on retroflexed examination of the cardia. ? DUODENUM: Normal biopsied for celiac sprue. ? Colonoscopy Findings: ? One small adenomatous polyp removed ? Moderate diverticulosis seen in the entire colon ? Small hemorrhoids on retroflexed exam. ? Plan: ? Patient has an appointment on 03/19/20 in the GI Clinic with Lebron Milian M.D.-. ? Repeat Colonoscopy interval based on path results - in 5 years if polyp is adenomatous and 10 years if polyps are hyperplastic. ?BIOPSIES SHOWED: ? A. Small bowel, biopsy: Small intestinal mucosa within normal limits. ? B. Stomach, biopsy: Antral-type and oxyntic mucosa with mild chronic inactive inflammation; no Helicobacter organisms seen. ? C. Stomach nodule: Gastric mucosa with mild chronic mucosal inflammation and foamy macrophages consistent with xanthoma; no Helicobacter organism seen. ? D. Colon, random, biopsy: Colonic mucosa within normal limits. ? E. Colon, sigmoid, polypectomy: Tubular adenoma; no high grade dysplasia or carcinoma seen. ?TODAY'S VISIT Pt is accompanied by her son who interpreted for the patient Complains of constipation - last BM was 3 days ago. Usually has a BM 3 times a week with passage of hard stools PAST VISITS: Constipation is not as bad as before Has a BM daily or every two days in the morning. BM are soft and she is able to go after pushing a little bit. Not eating very much - feels full fast. Not taking iron anymore. Followed by Dr Segura in Oncology and on procrit injections prn if HB is less than 10.5 No BM for the past 2 days. Had Senna, Miralax and dulcolax. Also takes prunes. Denies black stools or rectal bleeding. Pt feels some thing hard in the rectum and has rectal pain. Mild fever this am. Resumed taking iron due to worsening anemia. Taking iron every other day. ?? ? Continues to have intermittent constipation - has a BM 1-2 times a day. If she gets constipated, it may take her a week to have a BM - takes prunes and fruits which helps. Taking Alive a multivitamin with probiotics every other day ?? ? Can go 2 to 3 days without a BM. ?? ? Has hard stools with straining - afraid to get a hemorrhoid. Denies uterine or rectal prolapse. Chronic MEGAN (due to partial gastrectomy) and does not take oral iron due to worsening constipation Offered IV iron and patient refused [facility] Medical History Anemia Cardiac pacemaker in situ (~2018) Chest pressure Constipation Degenerative joint disease Dementia without behavioral disturbance Diabetes mellitus Epilepsy (~1998) GERD (gastroesophageal reflux disease) Insomnia Left arm swelling Neuropathy Nocturnal leg cramps Osteoporosis (~2007) Overweight (BMI 25.0-29.9) Post-menopausal Pure hypercholesterolemia Sick sinus syndrome Sinus bradycardia Swelling of lymph node Tubular adenoma of colon (~2019) Vitamin B12 deficiency Vitamin D deficiency Surgical History History of ankle surgery (~2011) History of colonoscopy History of endoscopy History of hysterectomy History of pacemaker (~2018) History of partial gastrectomy Family History Father Medical history unknown Mother No problems noted. Daughter No problems noted. Son No problems noted. 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 Cognitive needs: No Hearing needs: No Vision needs: Yes Review of Systems Const All systems reviewed & are unremarkable except as noted in HPI and below Physical Exam Vital Signs: Last Vital Signs Pulse 86 03/02/23 10:46 BP 122/56 L 03/02/23 10:46 BMI result Body Mass Index 22.4 Const General: healthy appearing and no acute distress Nutritional Appearance: average body habitus Orientation/consciousness: patient oriented x3 Limitations: language barrier HEENT Head: Yes normal to inspection Ears: hearing grossly normal bilaterally Eyes Sclerae: sclerae normal Pupils: Equal, round and reactive pupils present Neck Neck: Yes normal visual inspection Chest Chest palpation & inspection: normal inspection of the chest Resp Effort & Inspection: normal respiratory effort Auscultation: clear to auscultation bilaterally Cardio Palpation: normal PMI Rate: regular rate Rhythm: regular rhythm Heart sounds: S1 normal heart sound present, S2 normal heart sound present and no murmurs GI Palpation (GI): Soft to palpation, nontender and No hepatosplenomegaly present Auscultation: normal bowel sounds Rectal Exam - Female: deferred Skin General skin exam: no rashes or lesions noted Neuro General: patient oriented x3, gait normal and moves all extremities Cranial nerves: Yes Equal, round and reactive pupils present Psych Appearance: grossly normal Mental Status: mental status grossly normal Assessment & Plan Assessment & Plan (1) Iron deficiency anemia: Comment: Likely due to partial gastrectomy Code(s): D50.9 - Iron deficiency anemia, unspecified (2) GERD (gastroesophageal reflux disease): Code(s): K21.9 - Gastro-esophageal reflux disease without esophagitis Qualifiers: Esophagitis presence: without esophagitis Qualified Code(s): K21.9 - Gastro-esophageal reflux disease without esophagitis (3) Constipation: Code(s): K59.00 - Constipation, unspecified Qualifiers: Constipation type: unspecified constipation type Qualified Code(s): K59.00 - Constipation, unspecified (4) Vitamin B12 deficiency: Comment: (related to partial gastrectomy for PUD) Code(s): E53.8 - Deficiency of other specified B group vitamins Plan 82 year old urdu speaking female followed in GI for GERD, chronic constipation, iron deficiency any, fecal incontinence and suspected rectal prolapse. 02/13/20 EGD and Colonoscopy showed: Bilroth 1 Gastric anatomy. 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 Mild diffuse gastric erythema. Biopsies were negative for H pylori.? Duodenal biopsies were negative for celiac sprue 02/13/20 colonoscopy showed Diverticulosis and one small adenomatous polyp removed. Repeat colonoscopy is advised in 5 years (if pt remains in stable health)? - action set in [facility]. Pt has not been taking Miralax on a regular basis and resumed taking it when she felt worsening constipation. Pt was advised to take a rectal suppository and if no results to take a fleet enema. Advised to go to the ER for large volume tap water enema if she is unable to have a BM. She is to resume taking Miralax 1-2 times daily. Patient was offered referral to physical therapy for the pelvic floor which she declined. If patient continues to have constipation on FU, she will be prescribed Amitiza or Linzess. 10/13/22 Pt advised to resume taking iron every other day due to worsening MEGAN. To take a can of Glucerna once a day (pt takes one meal a day and takes coffee, fruit and snacks the rest of the day 03/02/23 Pt was advised to increase Senna to 1 tab twice daily and (then to 2 tab twice daily if no improvement in constipation) and take a stool softener at bedtime p.r.n. Follow-up appointment in 4 months to FU on MEGAN and?constipation Medications: Changed From sennosides (senna) 8.6 mg PO DAILY PRN Constipation K59.00 - Constipation, unspecified To sennosides (senna) 17.2 mg (2 x 8.6 mg) PO BID PRN 360 tabs 1RF Constipation 90 days K59.00 - Constipation, unspecified From docusate sodium (DOK) 100 mg PO BID 90 days 180 caps 3RF for constipation K59.00 - Constipation, unspecified To docusate sodium (DOK) 100 mg PO BEDTIME PRN 90 caps 1RF for constipation 90 days K59.00 - Constipation, unspecified Discontinued polyethylene glycol 3350 Discontinued Reason: Patient no longer taking 17 grams PO DAILY 60 days 1,020 grams 3RF Patient Instructions: Take Senna 2 tablets in the morning and two tablets in the evening Take Docusate (DOK) at bedtime as needed only if no bowel movement after taking Senna Coding Level of Care Code Est Pt Level 4 (42457) Diagnoses Iron deficiency anemia D50.9 GERD (gastroesophageal reflux disease) K21.9 Esophagitis presence: without esophagitis Constipation K59.00 Constipation type: unspecified constipation type Vitamin B12 deficiency E53.8 Time Spent (min) 23
[2023-03-02 10:46] VITALS: BP 122/56; PULSE 86; BMI 22.4
== END 2023-03-02 11:17 | disposition home or self-care (01) ==
PROVIDERS: PCP Internal Medicine; Visit Provider Internal Medicine Gastroenterology
DX: D50.9 Iron deficiency anemia, unspecified (principal); K21.9 Gastro-esophageal reflux disease without esophagitis; K59.00 Constipation, unspecified; E53.8 Deficiency of other specified B group vitamins
CPT/HCPCS: 99214

== ENCOUNTER → 2023-03-02 10:33 | Outpatient (BNVA) | payer MEDICARE, SELFPAY | PROVIDERS: PCP Internal Medicine; Visit Provider Internal Medicine Gastroenterology | DX: D50.9 Iron deficiency anemia, unspecified (principal); K21.9 Gastro-esophageal reflux disease without esophagitis; K59.00 Constipation, unspecified; E53.8 Deficiency of other specified B group vitamins; Z79.899 Other long term (current) drug therapy | CPT/HCPCS: 99212 ==

== ENCOUNTER 2023-03-15 08:47 | Outpatient (REF) | payer MEDICARE, SELFPAY ==
--- NOTE | 2023-03-15 08:50 | EMG_ITS ---
Please see scanned EMG / Nerve Conduction Report. MTDD
== END 2023-03-15 08:48 | disposition home or self-care (01) ==
LOC: HO.NEURO 08:47
PROVIDERS: PCP Internal Medicine; Visit Provider Internal Medicine
DX: M79.604 Pain in right leg (principal); M79.605 Pain in left leg; R20.2 Paresthesia of skin
CPT/HCPCS: 95885; 95913

== ENCOUNTER 2023-04-26 10:10 | Outpatient (AMB) | payer MEDICARE, SELFPAY ==
[2023-04-26 10:19] VITALS: BP 126/68; PULSE 88; O2SAT 100; BMI 20.4
--- NOTE | 2023-04-26 10:19 | AM.OFFVISMDC ---
Intake Vital Signs 04/26/23 10:19 Height 4 ft 8 in Weight 91 lb BMI 20.4 BP 126/68 Blood Pressure Location Lt brachial Position Sitting Pulse 88 Pulse Source Pulse Oximeter Temp Source Skin Pulse Oximetry (%) 100 Oxygen Delivery Method Room Air Intake Visit Reasons: SAWV Intake Note: Patient is here for an Annual Wellness Visit. Allergies Penicillins Allergy (Intermediate, Verified 04/26/23 10:43) RASH Medication List - Last Reconciled 04/26/23 by GREYSON Gonzales acetaminophen (Tylenol Extra Strength) 1,000 mg (2 x 500 mg) PO Q6H PRN 7 days MDD 4000mg atorvastatin 40 mg PO BEDTIME 90 days bisacodyl (Dulcolax (bisacodyl)) 5 mg PO BEDTIME cholecalciferol (vitamin D3) (Vitamin D3) 50 mcg PO BID cyanocobalamin (vitamin B-12) 1,000 mcg PO DAILY docusate sodium (DOK) 100 mg PO BEDTIME PRN 90 days ferrous sulfate 325 mg PO DAILY 90 days gabapentin 300 mg PO BEDTIME 30 days latanoprost 0.005% 1 drp ophthalmic (eye) BEDTIME levetiracetam 750 mg PO BID metformin 500 mg PO BID 90 days omeprazole 20 mg PO DAILY 90 days sennosides (senna) 17.2 mg (2 x 8.6 mg) PO BID PRN 90 days Fall Risk Assessment Fall risk assessment: No Falls in past year Date Fall Risk Assessed: 04/26/23 HPI SAWV HPI Details Patient is an 82-year-old female who presents today for subsequent wellness visit. Patient of Dr. Oscar. Today we discussed patient's need for bone density screening and mammogram. We also discussed patient's need for pneumonia vaccine, she has declined. [place] of care was reviewed with the patient and her son Osito who was helping with Bulgarian interpretation and they were provided with a screening schedule. Patient has a healthcare proxy in place, they will provide office with a copy, and they were provided with a MOLST form. [facility] [place] Medical History Anemia Cardiac pacemaker in situ (~2018) Chest pressure Constipation Degenerative joint disease Dementia without behavioral disturbance Diabetes mellitus Epilepsy (~1998) GERD (gastroesophageal reflux disease) Insomnia Left arm swelling Neuropathy Nocturnal leg cramps Osteoporosis (~2007) Overweight (BMI 25.0-29.9) Post-menopausal Pure hypercholesterolemia Sick sinus syndrome Sinus bradycardia Swelling of lymph node Tubular adenoma of colon (~2019) Vitamin B12 deficiency Vitamin D deficiency Surgical History History of ankle surgery (~2011) History of colonoscopy History of endoscopy History of hysterectomy History of pacemaker (~2018) History of partial gastrectomy Family History Father Medical history unknown Mother No problems noted. Daughter No problems noted. Son No problems noted. 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 [employer] Cognitive needs: No Hearing needs: No Vision needs: Yes Questionnaire Medicare Wellness Checkup What is your age?: 81 or older What gender do you identify with?: female During the past 4 weeks, how much have you been bothered by emotional problems such as feeling anxious, depressed, irritable, sad or downhearted, and blue?: slightly During the past 4 weeks, has your physical & emotional health limited your social activities with family, friends, neighbors, or groups?: not at all During the past 4 weeks, how much bodily pain have you generally had?: mild pain During the past 4 weeks, was someone available to help you if you needed & wanted help?: yes, quite a bit During the past 4 weeks, what was the hardest physical activity you could do for at least 2 minutes?: moderate Can you get to places out of walking distance without help? (For eg., can you travel alone on buses, taxis or drive your car?): No Can you go shopping for groceries or clothes without someone's help?: No Can you prepare your own meals?: Yes Can you do your housework without help?: Yes Because of any health problems, do you need the help of another person with your personal care needs such as eating, bathing, dressing or getting around the house?: No Can you handle your own money without help?: No During the past 4 weeks, how would you rate your health in general?: good During the past 4 weeks how have things been going for you?: good & bad parts about equal Are you having difficulties driving your car?: not applicable, I don't use a car Do you always fasten your seat belt when you are in a car?: yes, usually During past 4 weeks, have you been bothered by the following: never: Teeth or denture problems?, seldom: Problems using the telephone? and sometimes: Falling or dizzy when standing up, Trouble eating well? and Tiredness or fatigue? Have you fallen 2 or more times in the past year?: No Are you afraid of falling?: Yes Are you a smoker?: no During the past 4 weeks, how many drinks of wine, beer, or other alcoholic beverages did you have?: no alcohol at all Do you exercise for about 20 minutes 3 or more times a week?: no, I usually do not exercise this much Have you been given information to help with the following?: yes: Hazards in your house that might hurt you? and yes: Keeping track of your medications? How often do you have trouble taking medicines the way you have been told to take them?: I always take medicine as prescribed How confident are you that you can control & manage most of your health problems?: not very confident What is your race?: or origin or descent Mini Mental State Exam (MMSE) Orientation What is the (year) (season) (date) (day) (month)?: year, season, day and month Score Score: 4 Activity of Daily Living Bathing - sponge bath, tub bath or shower: receives no assistance (gets in/out by self, if usual bathing means Dressing - getting clothes from closets & drawers, including inner/outer garments & fasteners.: gets clothes & gets completely dressed without help Toileting - going to the 'toilet room' for urine/bowel elimination & cleaning self/arranging clothes: goes to toilet room, cleans self, arranges clothes without help Transfer: moves in & out of bed and chair without help (may use support object) Continence: controls urination/bowel movements completely by self Feeding: feeds self without help Total Score: 0 Information obtained from: patient Using telephone: independent Traveling: dependent Shopping: needs assistance Preparing meals: independent Housework: independent Taking medicine: needs assistance Managing money: dependent PHQ-9 Over the last 2 weeks, how often have you been bothered by any of the following problems? 1. Little interest or pleasure in doing things: not at all 2. Feeling down, depressed, or hopeless: not at all 3. Trouble falling or staying asleep, or sleeping too much: not at all 4. Feeling tired or having little energy: not at all 5. Poor appetite or overeating: not at all 6. Feeling bad about yourself - or that you are a failure or have let yourself or your family down: not at all 7. Trouble concentrating on things, such as reading the newspaper or watching television: not at all 8. Moving or speaking so slowly that other people could have noticed. Or the opposite - being so fidgety or restless that you have been moving around a lot more than usual: not at all 9. Thoughts that you would be better off or of hurting yourself in some way: not at all Total score: 0 Depression Screening Interpretation: Negative [id number] - PHQ-9 Billing: Yes Source: Developed by Drs. Yash Harris, Noemi Kaur, Alexander Parnell and colleagues, with an educational brittany from [employer]. Physical Exam Vital Signs: Last Vital Signs Pulse 88 04/26/23 10:19 BP 126/68 04/26/23 10:19 Pulse Ox 100 04/26/23 10:19 Oxygen Delivery Method Room Air 04/26/23 10:19 BMI result Body Mass Index 20.4 Const General: cooperative and no acute distress Orientation/consciousness: oriented to person and oriented to place HEENT Other: Whisper test: pass Neuro Other: Balance: Normal Get up and walk: unable to Romberg: negative Tandem gait: unable to General: oriented to person and oriented to place Results AMB Hemoglobin A1c AMB Hemoglobin A1c 6.7 % Last Edit by LAYNE Puentes on 04/26/23 10:39 Results Reviewed Results Reviewed: Laboratory Last Values Hgb A1c (Clinic) 6.7 % (4.0-6.0) H 04/26/23 10:36 Assessment & Plan Assessment & Plan (1) Screening for breast cancer: Code(s): Z12.39 - Encounter for other screening for malignant neoplasm of breast (2) Dementia without behavioral disturbance: Code(s): F03.90 - Unspecified dementia, unspecified severity, without behavioral disturbance, psychotic disturbance, mood disturbance, and anxiety Plan: Continue to follow-up with neurology Dr. Barber (3) Epilepsy: Onset Date: ~1998 Comment: Complex partial seizure Code(s): G40.909 - Epilepsy, unspecified, not intractable, without status epilepticus Qualifiers: Epilepsy type: unspecified Intractability: not intractable Status epilepticus: without status epilepticus Qualified Code(s): G40.909 - Epilepsy, unspecified, not intractable, without status epilepticus Plan: Continue to follow-up with neurology Dr. Barber Continue current treatment (4) Cardiac pacemaker in situ: Onset Date: ~2018 Comment: (Medtronic DCPP - placed 12/2018 - pocket revision 10/2021) Code(s): Z95.0 - Presence of cardiac pacemaker Plan: Continue to follow-up with cardiology Dr. Lay (5) Sick sinus syndrome: Comment: (s/p Medtronic DCPP placed 2018) Code(s): I49.5 - Sick sinus syndrome Plan: Continue to follow-up with cardiology Dr. 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 use: without nursing home use Diabetes mellitus complication status: with neurologic complications Diabetes mellitus complication detail: with unspecified neuropathy Qualified Code(s): E11.40 - Type 2 diabetes mellitus with diabetic neuropathy, unspecified Plan: A1c 6.7 today Continue current treatment Low-carbohydrate diet (7) Pure hypercholesterolemia: Code(s): E78.00 - Pure hypercholesterolemia, unspecified Plan: Continue current treatment Low-cholesterol diet (8) Iron deficiency anemia: Comment: Likely due to partial gastrectomy Code(s): D50.9 - Iron deficiency anemia, unspecified Plan: Continue to follow-up with Dr. Segura and Dr. Milian (9) GERD (gastroesophageal reflux disease): Code(s): K21.9 - Gastro-esophageal reflux disease without esophagitis Qualifiers: Esophagitis presence: without esophagitis Qualified Code(s): K21.9 - Gastro-esophageal reflux disease without esophagitis Plan: Omeprazole 20 mg daily Continue to follow-up with Dr. Milian (10) Constipation: Code(s): K59.00 - Constipation, unspecified Qualifiers: Constipation type: unspecified constipation type Qualified Code(s): K59.00 - Constipation, unspecified Plan: Continue current treatment Increase fluid consumption and dietary fiber (11) Glaucoma: Code(s): H40.9 - Unspecified glaucoma Qualifiers: Glaucoma type: unspecified Laterality: unspecified laterality Qualified Code(s): H40.9 - Unspecified glaucoma Plan: Continue to follow-up with ophthalmology (12) Adult general medical exam: Code(s): Z00.00 - Encounter for general adult medical examination without abnormal findings (13) Post-menopausal: Code(s): Z78.0 - Asymptomatic menopausal state Orders: Orders XR DEXA axial skeleton Today M81.0 - Age-related osteoporosis without current pathological fracture, Z78.0 - Asymptomatic menopausal state MM tomosynthesis screening BI Today Z12.31 - Encounter for screening mammogram for malignant neoplasm of breast AMB Hemoglobin A1c Today E11.9 - Type 2 diabetes mellitus without complications Quality Reporting (2019) Fall Risk Screening ([facility] 139) Last assessed Fall Risk: 04/26/23 Fall risk assessment: No Falls in past year Depression/Bipolar (159/160/161/177) PHQ-9: Total score: 0 Coding Level of Care Code Medicare Subsequent (G0439) Diagnoses Screening for breast cancer Z12.39 Dementia without behavioral disturbance F03.90 Epilepsy G40.909 Epilepsy type: unspecified Intractability: not intractable Status epilepticus: without status epilepticus Cardiac pacemaker in situ Z95.0 Sick sinus syndrome I49.5 Diabetes mellitus E11.40 Diabetes mellitus type: type 2 Diabetes mellitus nursing home insulin use: without nursing home use Diabetes mellitus complication status: with neurologic complications Diabetes mellitus complication detail: with unspecified neuropathy Pure hypercholesterolemia E78.00 Iron deficiency anemia D50.9 GERD (gastroesophageal reflux disease) K21.9 Esophagitis presence: without esophagitis Constipation K59.00 Constipation type: unspecified constipation type Glaucoma H40.9 Glaucoma type: unspecified Laterality: unspecified laterality Adult general medical exam Z00.00 Post-menopausal Z78.0 CPT Codes Advance Care Planning - Time spent: 1-15 minutes, not on file ([id number]) Advance Care Planning Advance Care Planning discussion: Exists, not on file Date of discussion: 04/26/23 Who was present: pt and rheumatology nurse Forms completed: None Time spent: 1-15 minutes, not on file Actual minutes spent: 2 Did not discuss due to Cultural/Spiritual beliefs: No
== END 2023-04-26 11:17 | disposition home or self-care (01) ==
PROVIDERS: Visit Provider Nurse Practitioner Family
DX: E11.9 Type 2 diabetes mellitus without complications (principal); Z00.00 Encounter for general adult medical examination without abnormal findings
CPT/HCPCS: 1124F; 83036; G0439

== ENCOUNTER 2023-05-15 08:17 | Outpatient (REF) | payer MEDICARE, SELFPAY ==
[2023-05-15 08:36] LABS: MANUAL DIFF FLAG NO
[2023-05-15 09:21] LABS: Basophils Percent Auto 0.7 % (0-2); Eosinophils Absolute Auto 0.1 X10*3/uL (0.0-0.4); Eosinophils Percent Auto 1.4 % (0-4); Hematocrit 39.7 % (37.0-47.0); Hemoglobin 12.6 g/dl (12.0-16.0); Imm Gran Abs Auto 0.02 X10*3/uL (0.00-0.03); Imm Gran Pct Auto 0.5 % (0.0-0.4); Lymphocytes Absolute Auto 1.8 X10*3/uL (1.2-4.9); Lymphocytes Percent Auto 40.7 % (20-40); Mean Corpuscular HGB Conc 31.7 g/dl (31.0-35.0); Mean Corpuscular Hemoglobin 30.4 pg (27.0-33.0); Mean Corpuscular Volume 95.9 fL (80.0-98.0); Mean Platelet Volume 11.4 fL (9.4-12.3); Monocytes Absolute Auto 0.4 X10*3/uL (0.1-1.2); Monocytes Percent Auto 9.5 % (2-11); Neutrophils Absolute Auto 2.1 x10*3/uL (2.0-8.3); Neutrophils Percent Auto 47.2 % (45-73); Platelet Count 253 X10*3/uL (160-400); Red Blood Count 4.14 X10*6/uL (4.20-5.50); Red Cell Distribution Width 13.7 % (11.0-16.0); White Blood Count 4.4 X10*3/uL (4.8-10.8)
[2023-05-15 09:28] LABS: Appearance Urine Clear; Color Urine Yellow; Glucose Urine UA Negative (Negative); Leukocyte Esterase Urine Moderate (2+) (Negative); Nitrite Urine Negative (Negative); PH 6.5 (5.0-9.0); UMIC TRIGGER UACC YES; Urine Blood Negative (Negative); Urine Ketones Negative (Negative); Urine Protein Negative (Neg-Trace)
[2023-05-15 09:31] LABS: Estimated Average Glucose 146 mg/dL; Hemoglobin A1c % 6.7 % (<6.0)
[2023-05-15 09:34] LABS: Bacteria Urine 4+ (None Seen); Hyaline Casts Urine 0-2 /LPF (0-2); RBC Urine 0-2 /HPF (0-2); Squamous Epithelial Cell Urine 0-2 /HPF (0-2); UACC Culture Trigger YES
[2023-05-15 10:22] LABS: Erythrocyte Sedimentation Rate 12 MM/HR (0-20)
[2023-05-15 10:35] LABS: Creatinine Urine 86.35 mg/dL; Microalbum/Creatinine Ratio Ur 9.2 ug/mg cr (<30)
[2023-05-15 11:03] LABS: Alanine Aminotransferase 30 U/L (0-31); Albumin Level 4.6 g/dL (3.5-5.0); Alkaline Phosphatase 101 U/L (39-117); Anion Gap 17 (12-20); Aspartate Amino Transferase 31 U/L (5-31); Bilirubin Total 0.6 mg/dL (0.0-1.0); Blood Urea Nitrogen 19 mg/dL (9-16); C Reactive Protein < 0.10 mg/dL (< or = 0.50); Carbon Dioxide 24 mmol/L (22-29); Chloride 107 mmol/L (96-108); Cholesterol 165 mg/dL (<200); Estimated Glomerular Filt Rate 58; Glucose Fasting 115 mg/dL (60-99); HDL Cholesterol 77 mg/dL (>40); LDL Cholesterol Calculated 72 mg/dL (<100); Potassium 4.8 mmol/L (3.3-5.1); Sodium 143 mmol/L (135-145); Triglycerides 83 mg/dL (<150)
[2023-05-15 11:20] LABS: TSH reflex Free T4 2.43 uIU/mL (0.32-4.0); Vitamin D 25-OH Total 63.8 ng/mL (>30)
[2023-05-15 11:36] LABS: Folate 15.5 ng/mL (> or = 4.0); Vitamin B12 > 2000 pg/mL (200-900)
[2023-05-18 19:25] LABS: Levetiracetam Keppra 48.4 mcg/mL (6.0-46.0)
== END 2023-05-15 08:18 | disposition home or self-care (01) ==
LOC: HO.LAB 08:17
PROVIDERS: PCP Internal Medicine; Visit Provider Internal Medicine
DX: I10 Essential (primary) hypertension (principal); E78.00 Pure hypercholesterolemia, unspecified; E55.9 Vitamin D deficiency, unspecified; G40.909 Epilepsy, unspecified, not intractable, without status epilepticus; M79.7 Fibromyalgia; M79.604 Pain in right leg; M79.605 Pain in left leg; M79.2 Neuralgia and neuritis, unspecified; E11.9 Type 2 diabetes mellitus without complications; E53.8 Deficiency of other specified B group vitamins; R30.0 Dysuria
CPT/HCPCS: 36415; 80053; 80061; 80177; 81001; 82043; 82306; 82570; 82607; 82746; 83036; 84443; 85025; 85652; 86140; 87086; 87088; 87186

== ENCOUNTER → 2023-05-19 23:59 | Outpatient (BNV) | payer MEDICARE, SELFPAY ==
--- NOTE | 2023-05-19 10:30 | A.OFFVIS_ITS ---
Intake Intake Visit Reasons: Remote Device Check- Medtr[employer] Allergies Penicillins Allergy (Intermediate, Verified 04/26/23 10:43) RASH PFSH Medical History Anemia Cardiac pacemaker in situ (~2018) Chest pressure Constipation Degenerative joint disease Dementia without behavioral disturbance Diabetes mellitus Epilepsy (~1998) GERD (gastroesophageal reflux disease) Insomnia Left arm swelling Neuropathy Nocturnal leg cramps Osteoporosis (~2007) Overweight (BMI 25.0-29.9) Post-menopausal Pure hypercholesterolemia Sick sinus syndrome Sinus bradycardia Swelling of lymph node Tubular adenoma of colon (~2019) Vitamin B12 deficiency Vitamin D deficiency Surgical History History of ankle surgery (~2011) History of colonoscopy History of endoscopy History of hysterectomy History of pacemaker (~2018) History of partial gastrectomy Family History Father Medical history unknown Mother No problems noted. Daughter No problems noted. Son No problems noted. Other Substance use disorder Social History Household Members: Children Housing: House Are you a primary critical care nurse specialist to a significant other at home: No Do you presently have visiting nurse or other home services: No Alcohol intake: never Patient Tobacco Use Status: Never used Tobacco Tobacco use type: Cigarette e-Cigarette/Vaping Use: Never Used Second Hand Smoke Exposure: No service: No Current occupational status: retired Current occupation: [employer] Cognitive needs: No Hearing needs: No Vision needs: Yes Office Procedures Cardiac Device Check Cardiac Device Check Details: Remote pacemaker report generated 05/19/2023. Pacemaker function is adequate [id number] Cardiac Device Interrogation, pacemaker Procedure code (CPT) selection complete Coding Level of Care Code Procedure Only CPT Codes Cardiac Device Check - Cardiac Device 12: [id number] Cardiac Device Interrogation, pacemaker ([id number])
== END ==
PROVIDERS: PCP Internal Medicine; Visit Provider Internal Medicine Cardiovascular Disease
DX: I49.5 Sick sinus syndrome (principal); Z95.0 Presence of cardiac pacemaker
CPT/HCPCS: 93294

== ENCOUNTER 2023-06-05 16:40 | Outpatient (AMB) | payer MEDICARE, SELFPAY ==
[2023-06-05 16:41] VITALS: BP 120/72; BMI 21.2
--- NOTE | 2023-06-05 16:41 | MHC.PC.OV ---
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 Accompanied by: Self / Same As Patient Allergies Penicillins Allergy (Intermediate, Verified 06/05/23 17:02) RASH Medication List - Last Reconciled 06/05/23 by Cuate Oscar MD acetaminophen (Tylenol Extra Strength) 1,000 mg (2 x 500 mg) PO Q6H PRN 7 days MDD 4000mg atorvastatin 40 mg PO BEDTIME 90 days bisacodyl (Dulcolax (bisacodyl)) 5 mg PO BEDTIME cholecalciferol (vitamin D3) (Vitamin D3) 50 mcg PO BID cyanocobalamin (vitamin B-12) 1,000 mcg PO DAILY docusate sodium (DOK) 100 mg PO BEDTIME PRN 90 days ferrous sulfate 325 mg PO DAILY 90 days gabapentin 300 mg PO BEDTIME 30 days latanoprost 0.005% 1 drp ophthalmic (eye) BEDTIME levetiracetam 750 mg PO BID metformin 500 mg PO BID 90 days omeprazole 20 mg PO DAILY 90 days sennosides (senna) 17.2 mg (2 x 8.6 mg) PO BID PRN 90 days Tobacco use date assessed: 06/05/23 Fall risk assessment: 1 Fall in past year Last assessed Fall Risk: 06/05/23 Dental Screening Dental Screen Date: 06/05/23 Did you have a dental visit in the last 12 months?: No Did you have a dental problem in the last 6 months where you did not have access to dental care?: No Was dental information given to patient?: No HPI hyperlipidemia, DM, anemia, neuropathy HPI Details Patient comes in today for her follow up visit States that she feels okay She denies any headaches or dizziness Denies any chest pains, no SOB No nausea/vomiting, no abdominal pain No change in bowel habits noted States that her previous bilateral leg pains appear to have improved when her Gabapentin dosage was raised to 300 mg Q HS Would like to know how her EMG and NCV done a few months ago came out Had her follow up labs done a few weeks ago - to discuss her results [facility] Medical History Chest pressure Osteoporosis (~2007) Tubular adenoma of colon (~2019) Post-menopausal Left arm swelling Swelling of lymph node Cardiac pacemaker in situ (~2018) Sick sinus syndrome Overweight (BMI 25.0-29.9) Insomnia Degenerative joint disease Nocturnal leg cramps Dementia without behavioral disturbance GERD (gastroesophageal reflux disease) Constipation Vitamin D deficiency Neuropathy Vitamin B12 deficiency Epilepsy (~1998) Anemia Sinus bradycardia Pure hypercholesterolemia Diabetes mellitus Surgical History History of endoscopy History of ankle surgery (~2011) History of partial gastrectomy History of colonoscopy History of pacemaker (~2018) History of hysterectomy Family History Father Medical history unknown Mother No problems noted. Daughter No problems noted. Son No problems noted. 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 1. Little interest or pleasure in doing things: not at all 2. Feeling down, depressed, or hopeless: not at all 3. Trouble falling or staying asleep, or sleeping too much: not at all 4. Feeling tired or having little energy: not at all 5. Poor appetite or overeating: not at all 6. Feeling bad about yourself - or that you are a failure or have let yourself or your family down: not at all 7. Trouble concentrating on things, such as reading the newspaper or watching television: not at all 8. Moving or speaking so slowly that other people could have noticed. Or the opposite - being so fidgety or restless that you have been moving around a lot more than usual: not at all 9. Thoughts that you would be better off or of hurting yourself in some way: not at all Total score: 0 Depression Screening Interpretation: Negative Depression Screening Done: Yes 63693 - PHQ-9 Billing: Yes Source: Developed by Drs. Yash Harris, Noemi Kaur, Alexander Parnell and colleagues, with an educational brittany from [employer]. Thrive Questionnaire Date Thrive assessed: 06/05/23 I am a: Patient What is your living situation today?: I have a steady place to live Within the past 12 months, did the food you bought not last and you didn't have the money to get more?: Never true Within the past 12 months, did you worry whether your food would run out before you got money to buy more?: Never true Do you have trouble paying for medicines?: No Do you have trouble getting transportation to medical appointments?: No Do you have trouble paying your heating and electricity bill?: No Do you have trouble taking care of your child, family member or friend?: No Do you have trouble with day-to-day activities such as bathing, preparing meals, shopping, managing finances, etc.?: No Are you currently unemployed and looking for a job?: No Are you interested in more education?: No Currently or been in a relationship where the following occur: no concerns reported AUDIT C Alcohol Use Questionnaire (AUDIT-C) 1. How often do you have a drink containing alcohol?: Never 3. How often do you have six or more drinks on one occasion?: Never Total Score: 0 Score Reviewed/Action Taken: Yes SHER-7 AMB Questionnaire SHER-7 Date SHER - 7 assessed: 06/05/23 Feeling nervous, anxious, or on edge: 0 = Not at all Not being able to stop or control worryin = Not at all Worrying too much about different things: 0 = Not at all Trouble relaxin = Not at all Being so restless that it is hard to sit still: 0 = Not at all Becoming easily annoyed or irritable: 0 = Not at all Feeling afraid as if something awful might happen: 0 = Not at all Total SHER-7 score (0-4 normal; 5-9 mild; 10-14 moderate; 15-21 severe): 0 Source: Developed by Drs. Yash Harris, Noemi Kaur, Alexander Parnell and colleagues, with an educational brittany from [employer]. Review of Systems Const Denies chills, Reports fatigue, Denies fever(s) and Denies headache(s) ENT Denies dysphagia, Denies dizziness, Denies otalgia, Denies headache(s), Denies odynophagia and Denies sore throat Card Denies chest pain, Denies palpitations and Denies dyspnea Resp Denies cough and Denies dyspnea GI Denies abdominal pain, Denies constipation, Denies dysphagia, Denies heartburn, Denies diarrhea, Denies nausea, Denies odynophagia and Denies vomiting Denies difficulty voiding, Denies nocturia and Denies dysuria Skin/Breast Denies rash Neuro Denies dizziness, Denies headache(s) and Reports radicular pain (improved on Gabapentin) Endo Reports fatigue and Denies palpitations Physical exam (Primary Care) Vital Signs: Last Vital Signs BP 120/72 06/05/23 16:41 Oxygen Delivery Method Room Air 06/05/23 16:41 BMI result Body Mass Index 21.2 Tobacco/Smoking Status: Tobacco use Status Tobacco use date assessed 06/05/23 06/05/23 16:43 Patient Tobacco Use Status Never used Tobacco 06/05/23 16:43 Tobacco use type Cigarette 06/05/23 16:43 e-Cigarette/Vaping Use Never Used 06/05/23 16:43 PHQ-9: PHQ-9 Score PHQ-9: Total score 0 06/05/23 16:43 Depression Screening Interpretation: Negative Thrive Assessment: Date of Thrive Assessment Date Thrive assessed 06/05/23 06/05/23 16:43 Currently or been in a relationship where the following occur: no concerns reported Const General: no acute distress and alert HENMT Ears: TM's normal bilaterally and EAC's normal Throat: Yes posterior oropharynx normal and Yes tonsils normal (no TP congestion) Neck Neck: Yes no lymphadenopathy and Yes supple Resp Auscultation: clear to auscultation bilaterally, no rales and no wheezes Cardio Rate: regular rate Rhythm: regular rhythm Heart sounds: no murmurs GI Palpation (GI): Soft to palpation and nontender Auscultation: normal bowel sounds Back/Spine/Pelvis Thoracic/Lumbar Spine: No lumbar spinal tenderness Skin Rashes: no rashes Extrem General: Yes no clubbing, cyanosis or edema Left upper extremity: shoulder/upper arm Details: tenderness Location: of the A-C joint; no swelling Right lower extremity: normal to inspection Left lower extremity: normal to inspection Results Reviewed Results Reviewed: Laboratory Tests 05/15/23 05/15/23 05/15/23 08:30 08:35 08:35 WBC 4.4 L Hgb 12.6 Hct 39.7 Plt Count 253 Sodium 143 Potassium 4.8 Creatinine 0.92 Estimated GFR 58 Fasting Glucose 115 H Hemoglobin A1c % 6.7 H Calcium 10.0 AST 31 ALT 30 Triglycerides 83 Cholesterol 165 LDL Cholesterol, Calc 72 HDL Cholesterol 77 Vitamin B12 > 2000 H 25-OH Vitamin D Total 63.8 TSH 2.43 Ur Specific [place] 1.020 Urine Protein Negative Urine Glucose (UA) Negative Urine Blood Negative Microalb/Creat Ratio 9.2 Levetiracetam 48.4 H Assessment and Plan Assessment & Plan (1) Pure hypercholesterolemia: Code(s): E78.00 - Pure hypercholesterolemia, unspecified Plan: Results of her labs done a few weeks ago reviewed and discussed with patient Reinforced low cholesterol diet Continue Atorvastatin 40 mg QD Will recheck her labs and fasting lipids in 3 months for follow-up (2) Diabetes mellitus: Code(s): E11.9 - Type 2 diabetes mellitus without complications Qualifiers: Diabetes mellitus type: type 2 Diabetes mellitus jail insulin use: without jail use Diabetes mellitus complication status: with neurologic complications Diabetes mellitus complication detail: with unspecified neuropathy Qualified Code(s): E11.40 - Type 2 diabetes mellitus with diabetic neuropathy, unspecified Plan: HgbA1c was at 6.7% on her labs done a few weeks ago (was at 6.5% previously) - goal is at least <7.0% Reinforced diabetic diet Continue Metformin 500 mg BID (3) Sinus bradycardia: Comment: (s/p [employer] DCPP placed 2019) Code(s): R00.1 - Bradycardia, unspecified Plan: Due to sick sinus syndrome - S/P dual-chamber permanent pacemaker insertion in 2019 with no recurrence of symptoms since Follow up with cardiology as scheduled (4) Anemia: Code(s): D64.9 - Anemia, unspecified Qualifiers: Anemia type: unspecified type Qualified Code(s): D64.9 - Anemia, unspecified Plan: Corrected - her H/H have improved and is now normal at 12.6/ 39.7 on her labs done a few weeks ago S/P IV iron infusion x 1 back in April 2022 and she apparently has not needed any more infusions afterwards Was seen by hematology for follow up last month and recommended to continue on Procrit but only if her Hgb drops below 10 .5 - to follow up with hematology regularly as scheduled Will continue to monitor her CBC regularly (5) Epilepsy: Onset Date: ~1998 Comment: Complex partial seizure Code(s): G40.909 - Epilepsy, unspecified, not intractable, without status epilepticus Qualifiers: Epilepsy type: unspecified Intractability: not intractable Status epilepticus: without status epilepticus Qualified Code(s): G40.909 - Epilepsy, unspecified, not intractable, without status epilepticus Plan: Complex partial seizure with no recurrence Continue Levetiracetam 750 mg BID Follow-up with Neurology as scheduled (6) Vitamin B12 deficiency: Comment: (related to partial gastrectomy for PUD) Code(s): E53.8 - Deficiency of other specified B group vitamins Plan: Corrected - continue oral Vitamin B12 tablets 1000 mcg QD (7) Neuropathy: Code(s): G62.9 - Polyneuropathy, unspecified Plan: EMG and NCV done back in April 2018 showed findings consistent with peripheral neuropathy Repeat NCV & EMG done in February 2023 showed (+) 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 and findings that are consistent with minimal chronic neuropathic changes in the EDB muscle States that her symptoms have improved a lot since her Gabapentin was increased to 300 mg Q HS (8) Nocturnal leg cramps: Code(s): G47.62 - Sleep related leg cramps Plan: Continue Ropinirole 0.25 mg Q HS and Tizanidine 2 mg Q HS PRN for her leg cramps (9) Vitamin D deficiency: Code(s): E55.9 - Vitamin D deficiency, unspecified Plan: Continue Vitamin-D3 2000 units QD (10) Constipation: Code(s): K59.00 - Constipation, unspecified Qualifiers: Constipation type: unspecified constipation type Qualified Code(s): K59.00 - Constipation, unspecified Plan: Encouraged increased oral fluids and dietary fiber Continue MiraLax 17 g daily and Colace 100 mg 1 to 2 times a day as needed (11) GERD (gastroesophageal reflux disease): Code(s): K21.9 - Gastro-esophageal reflux disease without esophagitis Qualifiers: Esophagitis presence: without esophagitis Qualified Code(s): K21.9 - Gastro-esophageal reflux disease without esophagitis Plan: Dietary restrictions reinforced Continue Omeprazole 20 mg QD (12) Dementia without behavioral disturbance: Code(s): F03.90 - Unspecified dementia, unspecified severity, without behavioral disturbance, psychotic disturbance, mood disturbance, and anxiety Plan: Patient's dementia appears stable, per family Follow up with Neurology as scheduled (13) Degenerative joint disease: Code(s): M19.90 - Unspecified osteoarthritis, unspecified site Qualifiers: Osteoarthritis location: unspecified site Osteoarthritis type: unspecified Qualified Code(s): M19.90 - Unspecified osteoarthritis, unspecified site Plan: S/P? medial and lateral malleolar fractures of the left ankle in? 2011 -? symptoms have been manageable (14) Glaucoma: Code(s): H40.9 - Unspecified glaucoma Qualifiers: Glaucoma type: unspecified Laterality: unspecified laterality Qualified Code(s): H40.9 - Unspecified glaucoma Plan: Continue Brimonidine eyedrops 0.1% BID Follow up with ophthalmology as scheduled (15) Insomnia: Code(s): G47.00 - Insomnia, unspecified Qualifiers: Insomnia type: unspecified Qualified Code(s): G47.00 - Insomnia, unspecified Plan: Sleep hygiene reinforced Continue Melatonin 5 mg once a day at bedtime as needed Plan Follow up in 3 months Orders: Orders Complete Blood Count Auto Diff 3 Months I10 - Essential (primary) hypertension Comprehensive [place]. Panel Fast 3 Months E78.00 - Pure hypercholesterolemia, unspecified Lipid Panel 3 Months E78.00 - Pure hypercholesterolemia, unspecified Microalbumin, Random (w Creat) 3 Months E11.9 - Type 2 diabetes mellitus without complications UA CC w/rflx Micro + Cult 3 Months R30.0 - Dysuria Vitamin B12 and Folate 3 Months E53.8 - Deficiency of other specified B group vitamins Levetiracetam Keppra 3 Months G40.909 - Epilepsy, unspecified, not intractable, without status epilepticus Hemoglobin A1c 3 Months E11.9 - Type 2 diabetes mellitus without complications TSH reflex Free T4 3 Months E78.00 - Pure hypercholesterolemia, unspecified Vitamin D 25-OH Total 3 Months E55.9 - Vitamin D deficiency, unspecified Coding Level of Care Code Est Pt Level 4 (32955) Diagnoses Pure hypercholesterolemia E78.00 Type 2 diabetes mellitus with diabetic neuropathy, without long-term current use of insulin E11.40 Diabetes mellitus type: 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 2 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 Diabetes mellitus complication status: with neurologic complications Diabetes mellitus complication detail: with unspecified neuropathy Sinus bradycardia R00.1 Anemia, unspecified type D64.9 Anemia type: unspecified type Nonintractable epilepsy without status epilepticus, unspecified epilepsy type G40.909 Epilepsy type: unspecified Intractability: not intractable Status epilepticus: without status epilepticus Vitamin B12 deficiency E53.8 Neuropathy G62.9 Nocturnal leg cramps G47.62 Vitamin D deficiency E55.9 Constipation, unspecified constipation type K59.00 Constipation type: unspecified constipation type Gastroesophageal reflux disease without esophagitis K21.9 Esophagitis presence: without esophagitis Dementia without behavioral disturbance F03.90 Osteoarthritis, unspecified osteoarthritis type, unspecified site M19.90 Osteoarthritis location: unspecified site Osteoarthritis type: unspecified Glaucoma, unspecified glaucoma type, unspecified laterality H40.9 Glaucoma type: unspecified Laterality: unspecified laterality Insomnia, unspecified type G47.00 Insomnia type: unspecified
== END 2023-06-05 17:17 | disposition home or self-care (01) ==
PROVIDERS: PCP Internal Medicine; Visit Provider Internal Medicine
DX: E78.00 Pure hypercholesterolemia, unspecified (principal); E11.40 Type 2 diabetes mellitus with diabetic neuropathy, unspecified; G40.909 Epilepsy, unspecified, not intractable, without status epilepticus; F03.90 Unspecified dementia, unspecified severity, without behavioral disturbance, psychotic disturbance, mood disturbance, and anxiety; R00.1 Bradycardia, unspecified; D64.9 Anemia, unspecified; E53.8 Deficiency of other specified B group vitamins; G62.9 Polyneuropathy, unspecified; G47.62 Sleep related leg cramps; E55.9 Vitamin D deficiency, unspecified; K59.00 Constipation, unspecified; K21.9 Gastro-esophageal reflux disease without esophagitis
CPT/HCPCS: 99214

== ENCOUNTER 2023-06-06 10:58 | Outpatient (REF) | payer MEDICARE, SELFPAY ==
--- NOTE | ~2023-06-06 | MM_ITS ---
EXAMINATION: MM SCREENING DIGITAL BREAST TOMOSYNTHESIS, BILATERAL CLINICAL INFORMATION: Screening. Asymptomatic. COMPARISON: Mammography: This is a baseline study. TECHNIQUE: Digital breast tomosynthesis is performed in both the craniocaudal and mediolateral oblique views along with computer-aided detection (CAD). Synthesized 2D images are generated from the tomosynthesis. FINDINGS: There are scattered areas of fibroglandular density (ACR BI-RADS breast composition Category b). There are no significant masses, abnormal calcifications, or other abnormalities. There is a pacemaker at the superior aspect of the left side of the chest. MM/MM tomosynthesis screening BI IMPRESSION: No mammographic evidence of malignancy. ASSESSMENT: BI-RADS BI-RADS 1 - Negative RECOMMENDATION: Routine annual mammography screening. 1 year F/U This examination should not preclude the clinical evaluation of a suspicious palpable abnormality. This patient's information was entered into a reminder system with a target due date for their next mammogram.
--- NOTE | ~2023-06-06 | MM_ITS ---
EXAMINATION: BONE DENSITOMETRY CLINICAL INDICATION: Asymptomatic menopausal state. COMPARISON: Previous BD dated 04/20/2021 and baseline BD dated 03/27/2008. TECHNIQUE: Using a [employer]noo DXA System (software version: 13.1) manufactured by [employer], dual-energy x-ray absorptiometry was performed of the lumbar spine and left forearm radius 33%. The images are of good technical quality. Summary results are attached. FINDINGS: AP SPINE L1-L4: Current: BMD 0.807 g/cm2, Z-score -0.5, T-score -3.1, osteoporosis, 4.7% decrease from previous, 3.2% decrease from baseline (<5% change is not significant). Prior: BMD 0.847 g/cm2. Baseline: BMD 0.834 g/cm2. LEFT FEMUR, NECK: Current: BMD 0.625 g/cm2, Z-score -0.2, T-score -3.0, osteoporosis. Prior: BMD 0.607 g/cm2. Baseline: BMD 0.682 g/cm2. LEFT FEMUR, TOTAL: Current: BMD 0.702 g/cm2, Z-score 0.2, T-score -2.4, osteopenia, 0.1% decrease from previous, 11.0% decrease from baseline (<5% change is not significant). Prior: BMD 0.703 g/cm2. Baseline: BMD 0.789 g/cm2. IDENTIFIED RISK FACTORS: History of adult fracture. Secondary osteoporosis (part of stomach removed). Anticonvulsants. Menopause. Hysterectomy. Bilateral oophorectomy. HISTORY OF FRACTURE: Other. MEDICATIONS: Vitamin D. MM/XR DEXA axial skeleton IMPRESSION: 1. DIAGNOSIS: Osteoporosis based on the lowest T-score value of -3.1 in the lumbar spine applying World Health Organization criteria. 2. 10-YEAR FRACTURE RISK PREDICTION, FRAX: According to the guidelines, FRAX calculation should only be performed on patients in the osteopenia bone density category.?Therefore, FRAX was not performed on this patient.? 3. Treatment Recommendations: NOF guidelines recommend consideration for treatment in postmenopausal women and men age 50 and older presenting with the following: -A hip or vertebral (clinical or morphometric) fracture. -T-score less than or equal to -2.5 at the femoral neck or spine after appropriate evaluation to exclude secondary causes. -Low bone mass at the hip or spine and a 10-year fracture probability by FRAX of greater than or equal to 3% for hip fracture or greater than or equal to 20% for major osteoporotic fracture based on the [place] adapted WHO algorithm. 4. Other Recommendations: All treatment decisions require clinical judgment and consideration of individual patient factors, including patient preferences, comorbidities, previous drug use, risk factors not captured in the FRAX model (e.g. frailty, falls, vitamin D deficiency, increased bone turnover, interval significant decline in bone density) and possible under or overestimation of fracture risk by FRAX. Additional medical evaluation for secondary cause of low bone mineral density may be appropriate. FUTURE SCAN RECOMMENDATION: People with diagnosed cases of osteoporosis or at high risk for fracture should have regular bone mineral density tests. For patients eligible for Medicare, routine testing is allowed once every 2 years. The testing frequency can be increased to one year for patients who have rapidly progressing disease, those who are receiving or discontinuing medical therapy to restore bone mass, or have additional risk factors.
== END 2023-06-06 10:59 | disposition home or self-care (01) ==
LOC: HO.MAMMO 10:58
PROVIDERS: PCP Internal Medicine; Visit Provider Nurse Practitioner Family
DX: Z12.31 Encounter for screening mammogram for malignant neoplasm of breast (principal); Z13.820 Encounter for screening for osteoporosis; Z78.0 Asymptomatic menopausal state; M81.0 Age-related osteoporosis without current pathological fracture
CPT/HCPCS: 77063; 77067; 77080

== ENCOUNTER → 2023-06-06 11:00 | Outpatient (BNV) | payer MEDICARE, SELFPAY | PROVIDERS: PCP Internal Medicine; Visit Provider Radiology Diagnostic Radiology | DX: Z12.31 Encounter for screening mammogram for malignant neoplasm of breast (principal) | CPT/HCPCS: 77063; 77067 ==

== ENCOUNTER 2023-06-28 02:22 | Observation (INO) | payer MEDICARE, SELFPAY ==
[2023-06-28] VITALS (11 sets, daily range): BP systolic 124–158; BP diastolic 44–86; PULSE 60–70; RESP 13–16; TEMP 36.4–37.1; O2SAT 97–100; BMI 20.2
--- NOTE | 2023-06-28 | ECG_ITS ---
Test Reason : CHEST PAIN Blood Pressure : / mmHG Vent. Rate : 061 BPM Atrial Rate : 061 BPM P-R Int : 164 ms QRS Dur : 064 ms QT Int : 384 ms P-R-T Axes : 000 057 023 degrees QTc Int : 386 ms Atrial-paced rhythm Low voltage QRS Nonspecific ST abnormality Abnormal ECG Heart rate has decreased Referred By: Generic ED Physician Electronically Signed By:MARIA LUISA BAKER MD
--- NOTE | ~2023-06-28 | XR_ITS ---
EXAMINATION: XR CHEST CLINICAL INFORMATION: Pain. COMPARISON: 05/01/2022. TECHNIQUE: Frontal view of the chest was obtained. FINDINGS: The cardiomediastinal silhouette is normal. Pacer leads are again seen in place. There is no focal lung consolidation or pleural effusion. The bony structures are osteopenic. Soft tissues are unremarkable. XR/XR chest 1V IMPRESSION: No active cardiopulmonary disease. No significant interval change.
--- NOTE | 2023-06-28 03:05 | PC.NURSE ---
2x iv attempt by this RN. iv established by Gely ANDERSON labs drawn. ekg obtained. Dr. Sierra to bedside for primary eval. pt placed on heart monitor; changed into hospital gown. Son at bedside. both poor historians; pt axox3; pt states sx onset approx 2300 and stated she called son; son stated sx onset yesterday am however pt called for him for worsening sx approx [address] Sierra aware. pt reports some dizziness at this time. awaiting lab results; call gómez within reach.
--- NOTE | 2023-06-28 03:09 | ED.CHESTPAIN ---
HPI - Chest Pain General Chief Complaint: Chest Pain Stated Complaint: cp Time Seen by Provider: 06/28/23 02:40 Source: patient and spanish interpreter/translator Mode of arrival: EMS Limitations: no limitations History of Present Illness HPI narrative: 83 yo female with PMH of anemia, dementia, PPM for SSS, seizures, DM, HLD, GERD, constipation, osteoporosis, here with c/o chest pain at pacer pocket site yesterday that radiated to neck. She denied other symptoms. around 11pm she was laying in bed and felt like she couldn't breathe and had syncopal event of unknown duration. She woke up and called son who then called 911. Patient states she still has pain. MD complaint: chest pain Onset (ago): day(s) (all day yesterday ) Timing of current episode: constant Prior episodes: Yes Onset: during rest Pain location: left chest Pain radiation: neck Severity: moderate Quality: aching Relieving factors: nothing Exacerbating factors: nothing Associated symptoms: syncope Treatment prior to arrival: none Related Data Home Medications Medication Instructions Recorded Confirmed cyanocobalamin (vitamin B-12) 1,000 mcg PO DAILY 06/09/20 06/26/23 1,000 mcg capsule cholecalciferol (vitamin D3) 50 50 mcg PO BID 09/28/21 06/26/23 mcg (2,000 unit) tablet (Vitamin D3) latanoprost 0.005 % eye drops 1 drp ophthalmic (eye) BEDTIME 12/30/21 06/26/23 bisacodyl 5 mg tablet,delayed 5 mg PO BEDTIME 10/13/22 06/26/23 release (Dulcolax (bisacodyl)) levetiracetam 750 mg tablet 750 mg PO BID 10/13/22 06/26/23 Previous Rx's Medication Instructions Recorded acetaminophen 500 mg tablet 1,000 mg (2 x 500 mg) PO Q6H PRN 11/10/21 (Tylenol Extra Strength) pain 7 days metformin 500 mg tablet 500 mg PO BID 90 days #180 tabs 04/20/22 ferrous sulfate 325 mg (65 mg 325 mg PO DAILY 90 days #90 tabs 10/13/22 iron) tablet omeprazole 20 mg capsule,delayed 20 mg PO DAILY 90 days #90 caps 11/22/22 release atorvastatin 40 mg tablet 40 mg PO BEDTIME 90 days #90 tabs 01/25/23 docusate sodium 100 mg capsule 100 mg PO BEDTIME PRN for 03/02/23 (DOK) constipation 90 days #90 caps sennosides 8.6 mg tablet (senna) 17.2 mg (2 x 8.6 mg) PO BID PRN 03/02/23 Constipation 90 days #360 tabs gabapentin 300 mg capsule 300 mg PO BEDTIME 30 days #30 caps 05/24/23 Allergies Allergy/AdvReac Type Severity Reaction Status Date / Time Penicillins Allergy Intermediate RASH Verified 06/28/23 02:37 Review of Systems Review of Systems: Constitutional : No Weight loss, No Fever, No Chills ENT/Mouth : No sore throat, No Rhinorrhea Eyes: No Eye Pain, No Swelling Cardiovascular : pos Chest Pain, pos SOB, no Dyspnea on Exertion, No Orthopnea, No Edema, No Palpitations Respiratory : No Cough, No Sputum Gastrointestinal : no Nausea, No Vomiting, No Diarrhea, No abdominal Pain, No Hematochezia, No Melena Genitourinary : No Dysuria, No Urinary Frequency Musculoskeletal : No joint pain, No Myalgias, No Joint Swelling Skin : No Skin Lesions, No rash Neuro : No Weakness, No Numbness, No Dizziness, No Headache, pos syncope Psych : No Anxiety/Panic, No Depression Heme/Lymph: No Bruising, No Lymphadenopathy Endocrine : No Polyuria, No Polydipsia All other systems reviewed and are negative [facility] Past Medical History Source: old records reviewed Medical History Chest pressure Osteoporosis (~2007) Tubular adenoma of colon (~2019) Post-menopausal Left arm swelling Swelling of lymph node Cardiac pacemaker in situ (~2018) Sick sinus syndrome Overweight (BMI 25.0-29.9) Insomnia Degenerative joint disease Nocturnal leg cramps Dementia without behavioral disturbance GERD (gastroesophageal reflux disease) Constipation Vitamin D deficiency Neuropathy Vitamin B12 deficiency Epilepsy (~1998) Anemia Sinus bradycardia Pure hypercholesterolemia Diabetes mellitus Surgical History History of endoscopy History of ankle surgery (~2011) History of partial gastrectomy History of colonoscopy History of pacemaker (~2018) History of hysterectomy Family History Family History Father Medical history unknown Mother No problems noted. Daughter No problems noted. Son No problems noted. 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 Oriented at her baseline. No acute distress. Eyes: Pupils equal, round and reactive to light. ENT: Pharynx normal. Neck: Normal inspection. Neck supple. CVS: Normal heart rate and rhythm. Pulses normal. Chest: pacer site appears normal and no signs of infection or swelling Respiratory: No respiratory distress. Breath sounds normal. Abdomen: Soft and nontender. Skin: Skin warm and dry. Normal skin color. Normal skin turgor. Extremities: No lower extremity edema. No calf ttp Neuro: Oriented at her baseline No motor deficit. No sensory deficit. Course Course Course Narrative: ddimer under age adjusted limited Medical Decision Making Medical Decision Making MDM Narrative: 83 yo female with PMH of anemia, dementia, PPM for SSS, seizures, DM, HLD, GERD, constipation, osteoporosis here with c/o chest pain all day yesterday then was sitting in bed and syncopized tonight - she is not the best historian c/o pain near pacer site. She did ahve syncope with chest pain - at this time will obtain basic labs, troponin x 2, ddimer, CXR. Possible ACS, VTE. Differential Diagnosis Differential Diagnoses: The differential diagnosis associated with the presentation includes chest pain, syncope, ACS, VTE Admission/Observation Consideration of admission/observation: Escalation of care including admission/observation considered admit for syncope and CP Consult Healthcare Provider Management of the patient was discussed with: Hospitalist (will admit) Lab Data MDM Lab Attestation statement: I reviewed the patient's lab results. 06/28/23 03:07 06/28/23 04:54 Labs: Lab Results 06/28/23 06/28/23 Range/Units 03:07 04:54 WBC 4.0 L (4.8-10.8) X10*3/uL RBC 3.47 L (4.20-5.50) X10*6/uL Hgb 10.5 L (12.0-16.0) g/dl Hct 33.0 L (37.0-47.0) % MCV 95.1 (80.0-98.0) fL MCH 30.3 (27.0-33.0) pg MCHC 31.8 (31.0-35.0) g/dl RDW 14.2 (11.0-16.0) % Plt Count 261 (160-400) X10*3/uL MPV 10.7 (9.4-12.3) fL Immature Gran % (Auto) 0.2 (0.0-0.4) % Neut % (Auto) 34.3 L (45-73) % Lymph % (Auto) 50.9 H (20-40) % [place] % (Auto) 12.7 H (2-11) % Eos % (Auto) 1.2 (0-4) % Baso % (Auto) 0.7 (0-2) % Lymph # (Auto) 2.0 (1.2-4.9) X10*3/uL [place] # (Auto) 0.5 (0.1-1.2) X10*3/uL Eos # (Auto) 0.1 (0.0-0.4) X10*3/uL Baso # (Auto) 0.0 (0.0-0.2) X10*3/uL Abs Immat Gran (auto) 0.01 (0.00-0.03) X10*3/uL Absolute Neuts (auto) 1.4 L (2.0-8.3) x10*3/uL Absolute Nucleated RBC 0.000 (0.0-0.012) X10*3/uL Nucleated RBC % (auto) 0.0 (0.0-0.2) /100WBC D-Dimer High Sensitivty 310 NG/ML Sodium 142 (135-145) mmol/L Potassium 5.7 H 4.7 (3.3-5.1) mmol/L Chloride 110 H (96-108) mmol/L Carbon Dioxide 23 (22-29) mmol/L Anion Gap 15 (12-20) BUN 14 (9-16) mg/dL Creatinine 1.04 (0.5-1.4) mg/dL Estim Creat Clear Calc 28.4 Estimated GFR 51 Random Glucose 100 (60-115) mg/dL Calcium 9.5 (8.4-10.2) mg/dL Magnesium 1.7 (1.6-2.6) mg/dL Total Bilirubin 0.6 (0.0-1.0) mg/dL Direct Bilirubin 0.2 (0.0-0.5) mg/dL AST 33 H (5-31) U/L ALT 25 (0-31) U/L Alkaline Phosphatase 80 (39-117) U/L Troponin I High Sens < 2.7 < 2.7 (<3.5-17.0) ng/L Total Protein 7.4 (6.5-8.0) g/dL Albumin 4.0 (3.5-5.0) g/dL Independent Interpretation I performed an independent interpretation of an: EKG and Plain X-Ray Interpretation: Rate: 61 Rhythm: intermittent atrial paced [place]: normal Normal P waves. Normal ROSA MARIA. Normal QRS complex. ST T wave : normal no RAMOS, nonspecific ST T wave changes V3, artifact is noted qTC: normal prior studies: no acute ischemia The study has been interpreted contemporaneously by me. . Radiology Impression Discussion of test interpretation with radiology: I have reviewed the radiologist's reading. Independent Historian Clinical information obtained from an independent historian. History obtained from or confirmed by: Other (son) External Record Review External record reviewed: Inpatient record Discharge Plan Discharge Clinical Impression: Chest pain Qualifiers: Chest pain type: precordial pain Qualified Code(s): R07.2 - Precordial pain Syncope Qualifiers: Syncope type: unspecified Qualified Code(s): R55 - Syncope and collapse Patient Disposition: Admitted As Inpatient
[2023-06-28 03:12] LABS: MANUAL DIFF FLAG NO
[2023-06-28 03:17] LABS: Basophils Percent Auto 0.7 % (0-2); Eosinophils Absolute Auto 0.1 X10*3/uL (0.0-0.4); Eosinophils Percent Auto 1.2 % (0-4); Hemoglobin 10.5 g/dl (12.0-16.0); Imm Gran Abs Auto 0.01 X10*3/uL (0.00-0.03); Imm Gran Pct Auto 0.2 % (0.0-0.4); Lymphocytes Percent Auto 50.9 % (20-40); Mean Corpuscular HGB Conc 31.8 g/dl (31.0-35.0); Mean Corpuscular Hemoglobin 30.3 pg (27.0-33.0); Mean Corpuscular Volume 95.1 fL (80.0-98.0); Mean Platelet Volume 10.7 fL (9.4-12.3); Monocytes Absolute Auto 0.5 X10*3/uL (0.1-1.2); Monocytes Percent Auto 12.7 % (2-11); Neutrophils Absolute Auto 1.4 x10*3/uL (2.0-8.3); Neutrophils Percent Auto 34.3 % (45-73); Platelet Count 261 X10*3/uL (160-400); Red Blood Count 3.47 X10*6/uL (4.20-5.50); Red Cell Distribution Width 14.2 % (11.0-16.0)
[2023-06-28 03:25] LABS: D Dimer High Sensitivity 310 NG/ML
[2023-06-28 03:31] LABS: Alanine Aminotransferase 25 U/L (0-31); Alkaline Phosphatase 80 U/L (39-117); Anion Gap 15 (12-20); Aspartate Amino Transferase 33 U/L (5-31); Bilirubin Direct 0.2 mg/dL (0.0-0.5); Bilirubin Total 0.6 mg/dL (0.0-1.0); Blood Urea Nitrogen 14 mg/dL (9-16); Calcium 9.5 mg/dL (8.4-10.2); Carbon Dioxide 23 mmol/L (22-29); Chloride 110 mmol/L (96-108); Creatinine Clr Calc Pharmacy 28.4; Estimated Glomerular Filt Rate 51; Glucose Random 100 mg/dL (60-115); Magnesium 1.7 mg/dL (1.6-2.6); Potassium 5.7 mmol/L (3.3-5.1); Sodium 142 mmol/L (135-145); Total Protein 7.4 g/dL (6.5-8.0)
[2023-06-28 03:40] LABS: Troponin-I High Sensitivity < 2.7 ng/L (<3.5-17.0)
--- NOTE | 2023-06-28 05:04 | PC.NURSE ---
pt reported 10/10 BLE pain stating they were cramping. repeat labs drawn and sent to lab. Dr. Sierra notified.
[2023-06-28 05:07] LABS: Potassium 4.7 mmol/L (3.3-5.1)
[2023-06-28 05:19] LABS: Troponin-I High Sensitivity < 2.7 ng/L (<3.5-17.0)
[2023-06-28] MEDS: Acetaminophen 325 MG TABLET 975 MG PO (05:56)
--- NOTE | 2023-06-28 06:04 | P.HPHOSP_ITS ---
History of Present Illness Date of Service: 06/28/23 Chief Complaint: Syncope This is a 83-year-old female with pertinent history of mixed hyperlipidemia, gastroesophageal reflux disease, ttn-cklmvkp-pvtaupuyi diabetes mellitus, seizure disorder, peripheral neuropathy who presents to the emergency department for evaluation after having a syncopal episode. Patient is a poor historian and states when she was laying in bed, she had an episode of dizziness/lightheadedness. It was associated with chest pain and palpitations. Also had cramps all over the body. Patient states she passed out for unknown duration. No rhythmic jerking movement of extremities. No bowel or urinary incontinence. No tongue bite. Does endorse decreased p.o. intake and diarrhea. No fever, chills, shortness of breath, abdominal pain, changes in urinary habits. Review of Systems 2 Constitutional: Constitutional: Reports fatigue and Reports lethargy ENT: Reports dizziness Cardiovascular: Cardiovascular: Reports no additional cardiovascular complaints, Reports chest pain and Reports rapid heart rate Respiratory: Respiratory: Reports no additional respiratory complaints Gastrointestinal: Gastrointestinal: Reports loose stools Neurologic: Reports dizziness Endocrine: Endocrine: Reports fatigue [facility] Medical History Chest pressure Osteoporosis (~2007) Tubular adenoma of colon (~2019) Post-menopausal Left arm swelling Swelling of lymph node Cardiac pacemaker in situ (~2018) Sick sinus syndrome Overweight (BMI 25.0-29.9) Insomnia Degenerative joint disease Nocturnal leg cramps Dementia without behavioral disturbance GERD (gastroesophageal reflux disease) Constipation Vitamin D deficiency Neuropathy Vitamin B12 deficiency Epilepsy (~1998) Anemia Sinus bradycardia Pure hypercholesterolemia Diabetes mellitus Family History Father Medical history unknown Mother No problems noted. Daughter No problems noted. Son No problems noted. Other Substance use disorder Surgical History History of endoscopy History of ankle surgery (~2011) History of partial gastrectomy History of colonoscopy History of pacemaker (~2018) History of hysterectomy Social History Household Members: Children Housing: House Are you a primary customer care assistant to a significant other at home: No Do you presently have visiting nurse or other home services: No Alcohol intake: never Patient Tobacco Use Status: Never used Tobacco Tobacco use type: Cigarette e-Cigarette/Vaping Use: Never Used Second Hand Smoke Exposure: No Advance Directives: No Advance Directives Information Provided: Yes service: No 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 occupational 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 Cognitive needs: No Hearing needs: No Vision needs: Yes Meds Allergies Allergy/AdvReac Type Severity Reaction Status Date / Time Penicillins Allergy Intermediate RASH Verified 06/28/23 02:37 Home Medications Medication Instructions Recorded Confirmed Last Taken Type cyanocobalamin (vitamin B-12) 1,000 mcg PO DAILY 06/09/20 06/26/23 Unknown History 1,000 mcg capsule cholecalciferol (vitamin D3) 50 50 mcg PO BID 09/28/21 06/26/23 Unknown History mcg (2,000 unit) tablet (Vitamin D3) latanoprost 0.005 % eye drops 1 drp ophthalmic (eye) BEDTIME 12/30/21 06/26/23 Unknown History bisacodyl 5 mg tablet,delayed 5 mg PO BEDTIME 10/13/22 06/26/23 Unknown History release (Dulcolax (bisacodyl)) levetiracetam 750 mg tablet 750 mg PO BID 10/13/22 06/26/23 Unknown History Physical Exam 2 Vital Signs and Narrative: Vital Signs: Last Vital Signs Temp 98 F 06/28/23 04:02 Pulse 63 06/28/23 04:02 Resp 16 06/28/23 04:02 BP 127/53 L 06/28/23 04:04 Pulse Ox 99 06/28/23 04:02 O2 Del Method Room Air 06/28/23 04:02 BMI result Body Mass Index 20.2 Elderly female lying in bed in no distress Neck supple, no JVD Regular rate and rhythm, S1-S2 heard Regular breath sounds bilaterally, no wheezing or crackles appreciated Abdomen soft nontender, no guarding, no rigidity Patient is awake, alert and oriented to self, place, time and person ; no focal motor deficit Psych: Normal mood No pedal edema Results Labs 06/28/23 03:07 06/28/23 04:54 Labs: Laboratory Results - last 24 hr 06/28/23 03:07 MCV 95.1 MCH 30.3 MCHC 31.8 RDW 14.2 Plt Count 261 MPV 10.7 Immature Gran % (Auto) 0.2 Neut % (Auto) 34.3 L Lymph % (Auto) 50.9 H [place] % (Auto) 12.7 H Eos % (Auto) 1.2 Baso % (Auto) 0.7 Lymph # (Auto) 2.0 [place] # (Auto) 0.5 Eos # (Auto) 0.1 Baso # (Auto) 0.0 Abs Immat Gran (auto) 0.01 Absolute Neuts (auto) 1.4 L Absolute Nucleated RBC 0.000 Nucleated RBC % (auto) 0.0 D-Dimer High Sensitivty 310 Anion Gap 15 Estim Creat Clear Calc 28.4 Estimated GFR 51 Random Glucose 100 Calcium 9.5 Magnesium 1.7 Total Bilirubin 0.6 Direct Bilirubin 0.2 AST 33 H ALT 25 Alkaline Phosphatase 80 Total Protein 7.4 Albumin 4.0 Imaging Radiologist's Impressions: Impressions Chest X-Ray 06/28/23 02:50 IMPRESSION: No active cardiopulmonary disease. No significant interval change. Assessment and Plan (1) Syncope: Qualifiers: Syncope type: unspecified Qualified Code(s): R55 - Syncope and collapse Status: Acute Plan This is a 83-year-old female with pertinent history of mixed hyperlipidemia, gastroesophageal reflux disease, sne-yrnioop-jcqesflvc diabetes mellitus, seizure disorder, peripheral neuropathy who presents to the emergency department for evaluation after having a syncopal episode. #. Syncope, unclear etiology: Will admit patient for observation with cardiac monitoring. Obtaining orthostatic vital signs. #. Atypical chest discomfort: Trend troponins #. Seizure disorder: On Keppra #. Ker-enjdvts-fsdryxzxd diabetes mellitus: Initiating Accu-Cheks with sliding scale insulin #. Gastroesophageal reflux disease: On PPI #. Peripheral neuropathy: On gabapentin Med rec pending DVT prophylaxis: Lovenox Quality Stroke Does the patient have a stroke diagnosis?: No VTE Prior VTE?: No VTE Risk Level:: Medical - moderate - high VTE Device Contraindication: Treatment Not Indicated VTE Drug Contraindication: N/A - Med Ordered
[2023-06-28] MEDS: Enoxaparin Sodium 30 MG/0.3 ML SYRINGE SUBCUT (06:54)
[2023-06-28] MEDS: 0.9 % Sodium Chloride 500 ML IV (06:55)
--- NOTE | 2023-06-28 07:01 | PHA.MEDREC ---
Pharmacy Consult ? Medication Reconciliation Med rec completed by RN overnight, reviewed by pharmacy Khanh
[2023-06-28 07:09] LABS: Glucose, Whole Blood 72 mg/dL (60-115)
[2023-06-28 07:56] LABS: Troponin-I High Sensitivity < 2.7 ng/L (<3.5-17.0)
--- NOTE | 2023-06-28 09:22 | PC.NURSE ---
aox4. eating breakfast well. no resp distress. talking well
[2023-06-28] MEDS: levETIRAcetam 250 MG TABLET 750 MG PO (09:23)
[2023-06-28] MEDS: Cholecalciferol (Vitamin D3) 25 MCG TABLET 50 MCG PO (09:25)
[2023-06-28] MEDS: Cyanocobalamin (Vitamin B-12) 1,000 MCG TABLET 1000 MCG PO (09:26)
[2023-06-28] MEDS: Omeprazole 20 MG CAPSULE.DR PO (09:26)
--- NOTE | 2023-06-28 09:32 | PC.NURSE ---
provider inpatient at bedside aware burning pacemaker. otherwise denies cp
--- NOTE | 2023-06-28 09:35 | PC.NURSE ---
handoff to rah rn
--- NOTE | 2023-06-28 10:05 | MHC.CM.PN ---
CM SPOKE TO PTS SON, JEVON VIA T/C [phone], PER PTS REQUEST JEVON REPORTS THE FOLLOWING: PT LIVES AT HOME WITH TWO OTHER SONS AND HER BEST FRIEND/ROOMMATE PT DOES NOT QUALIFY FOR ANY SERVICES AND IS INDEPENDENT WITH CARE SHE HAS NOT USED ANY DME IN THE PAST AND STATES SHE DOES NOT WANT ANY PT HAS A HCP AND POA COMPLETED WITH AN TRIMMER SORTER, COPY REQUESTED PC: [facility] OBSERVATION NOTICE DELIVERED DCP: HOME NO SERVICES VIA FAMILY TRANSPORT
--- NOTE | 2023-06-28 10:08 | PC.NURSE ---
xu willingham rn for this pt brought upstairs. this rn gave her report at 0901.
[2023-06-28 11:34] LABS: Glucose, Whole Blood 86 mg/dL (60-115)
--- NOTE | 2023-06-28 12:11 | PM.DS ---
DS: Providers Provider Date of Service: 06/28/23 Date of admission: 06/28/23 06:03 Primary care physician: Unknown Physician DS: Diagnosis Discharge Diagnosis (1) Syncope: Status: Acute DS: Summary Hospital Course Hospital Course: from initial hpi: 83-year-old female with pertinent history of mixed hyperlipidemia, gastroesophageal reflux disease, ils-puaoggu-dptmhcahr diabetes mellitus, seizure disorder, peripheral neuropathy who presents to the emergency department for evaluation after having a syncopal episode. Patient is a poor historian and states when she was laying in bed, she had an episode of dizziness/lightheadedness. It was associated with chest pain and palpitations. Also had cramps all over the body. Patient states she passed out for unknown duration. No rhythmic jerking movement of extremities. No bowel or urinary incontinence. No tongue bite. Does endorse decreased p.o. intake and diarrhea. No fever, chills, shortness of breath, abdominal pain, changes in urinary habits. hospital course: Patient was admitted for syncope. No events on telemetry, orthostatic vital signs were mildly positive and is possibly the etiology. Pacer device was interrogated and no causative events. For atypical chest discomfort troponins were negative. She should follow up outpatient with Cardiology. For seizure disorder was continue on Keppra. For diabetes continue on insulin. For GERD on PPI. For peripheral neuropathy on gabapentin. Patient is feeling better. She is not interested in rehab, she will be discharged home. Time Attestation Discharge coordination time: Greater than 30 minutes Quality: Safe Use of Opioids Does Pt have an Active Cancer Diagnosis on the Problem List?: No Quality: Stroke Does the patient have a stroke diagnosis?: No Physical Exam Vital Signs: Vital Signs: Last Vital Signs Temp 97.6 F 06/28/23 11:45 Pulse 64 06/28/23 11:45 Resp 16 06/28/23 11:45 BP 136/64 06/28/23 11:45 Pulse Ox 100 06/28/23 11:45 O2 Del Method Room Air 06/28/23 11:45 BMI result Body Mass Index 20.2 General: AO X 3, no acute distress Resp: CTA bilateral, no accessory muscles used CVS: S1,S2,RRR GI: soft, non tender, non distended Neuro: motor grossly intact, alert Psych: appropriate affect, appropriate insight DS: Data Data Completed and Pending Labs on day of discharge: Laboratory Results - last 24 hr 06/28/23 06/28/23 06/28/23 03:07 04:54 07:07 WBC 4.0 L RBC 3.47 L Hgb 10.5 L Hct 33.0 L MCV 95.1 MCH 30.3 MCHC 31.8 RDW 14.2 Plt Count 261 MPV 10.7 Immature Gran % (Auto) 0.2 Neut % (Auto) 34.3 L Lymph % (Auto) 50.9 H [place] % (Auto) 12.7 H Eos % (Auto) 1.2 Baso % (Auto) 0.7 Lymph # (Auto) 2.0 [place] # (Auto) 0.5 Eos # (Auto) 0.1 Baso # (Auto) 0.0 Abs Immat Gran (auto) 0.01 Absolute Neuts (auto) 1.4 L Absolute Nucleated RBC 0.000 Nucleated RBC % (auto) 0.0 D-Dimer High Sensitivty 310 Sodium 142 Potassium 5.7 H 4.7 Chloride 110 H Carbon Dioxide 23 Anion Gap 15 BUN 14 Creatinine 1.04 Estim Creat Clear Calc 28.4 Estimated GFR 51 POC Glucose 72 Random Glucose 100 Calcium 9.5 Magnesium 1.7 Total Bilirubin 0.6 Direct Bilirubin 0.2 AST 33 H ALT 25 Alkaline Phosphatase 80 Troponin I High Sens < 2.7 < 2.7 Total Protein 7.4 Albumin 4.0 06/28/23 06/28/23 07:23 11:22 WBC RBC Hgb Hct MCV MCH MCHC RDW Plt Count MPV Immature Gran % (Auto) Neut % (Auto) Lymph % (Auto) [place] % (Auto) Eos % (Auto) Baso % (Auto) Lymph # (Auto) [place] # (Auto) Eos # (Auto) Baso # (Auto) Abs Immat Gran (auto) Absolute Neuts (auto) Absolute Nucleated RBC Nucleated RBC % (auto) D-Dimer High Sensitivty Sodium Potassium Chloride Carbon Dioxide Anion Gap BUN Creatinine Estim Creat Clear Calc Estimated GFR POC Glucose 86 Random Glucose Calcium Magnesium Total Bilirubin Direct Bilirubin AST ALT Alkaline Phosphatase Troponin I High Sens < 2.7 Total Protein Albumin Discharge Plan Discharge Anticipated Discharge Date/Time: 06/28/23 12:09 Patient Disposition: Home Health Service Discharge Diagnosis: syncope Referrals: Physician,Unknown J [Physician] - 1 Week Discharge Medications: Continued omeprazole 20 mg capsule,delayed release(DR/EC) 20 mg PO DAILY 90 Days Qty: 90 1RF gabapentin 300 mg capsule 300 mg PO BEDTIME 30 Days Qty: 30 3RF cholecalciferol (vitamin D3) [Vitamin D3] 50 mcg (2,000 unit) Tablet 50 mcg PO BID acetaminophen [Tylenol Extra Strength] 500 mg tablet 1,000 mg PO Q6H MDD 4000mg PRN (Reason: pain) 7 Days 0RF cyanocobalamin (vitamin B-12) 1,000 mcg capsule 1,000 mcg PO DAILY metformin 500 mg tablet 500 mg PO BID 90 Days Qty: 180 3RF atorvastatin 40 mg tablet 40 mg PO BEDTIME 90 Days Qty: 90 1RF latanoprost 0.005 % drops 1 drp ophthalmic (eye) BEDTIME sennosides [senna] 8.6 mg tablet 17.2 mg PO BID PRN (Reason: Constipation) 90 Days Qty: 360 1RF docusate sodium [DOK] 100 mg capsule 100 mg PO BEDTIME PRN (Reason: for constipation) 90 Days Qty: 90 1RF bisacodyl [Dulcolax (bisacodyl)] 5 mg tablet,delayed release (DR/EC) 5 mg PO BEDTIME levetiracetam 750 mg tablet 750 mg PO BID Discharge Orders: Discharge Order (Routine); Ordered 06/28/23 Ordered By: Price Thompson Diet: Advance to usual diet Activity on Discharge: As tolerated Stand Alone Forms: Patient Portal Discharge page Care Plan Goals: recovery Health Concerns: pacer site pain, sycnope Plan of Treatment: orthostatic precautions, follow up with cardiology Assessment: see above Discharge Date/Time: 06/28/23 15:04
--- NOTE | 2023-06-28 13:42 | MHC.CM.PN ---
Pt has been medically cleared for DC. She will go home via private transport, self care.
--- NOTE | 2023-06-28 15:05 | PC.NURSE ---
Pt admitted to unit and than discharge home. Orthostatic bp's were neg. Pt denied dizziness. pt and family agreed with discharge plan
== END 2023-06-28 15:04 | disposition home health service (06) ==
LOC: HO.ED 05:36 → HO.EDOVER 06:09 → HO.IMC 09:35
PROVIDERS: Admitting Provider Student in an Organized Health Care Education/Training Program; Emergency Provider Emergency Medicine; PCP Internal Medicine; Visit Provider Internal Medicine
DX: R55 Syncope and collapse (principal); R07.9 Chest pain, unspecified; R07.2 Precordial pain; I49.5 Sick sinus syndrome; Z95.0 Presence of cardiac pacemaker; E11.9 Type 2 diabetes mellitus without complications; E78.5 Hyperlipidemia, unspecified; D64.9 Anemia, unspecified; G40.909 Epilepsy, unspecified, not intractable, without status epilepticus; K21.9 Gastro-esophageal reflux disease without esophagitis; G62.9 Polyneuropathy, unspecified; Z79.899 Other long term (current) drug therapy
CPT/HCPCS: 36415; 71045; 80048; 80076; 82947; 83735; 84132; 84484; 85025; 85379; 93005; 96360; 96361; 96372; 99222; 99285; J1650

== ENCOUNTER → 2023-06-28 06:03 | Outpatient (BNV) | payer MEDICARE, SELFPAY | PROVIDERS: Admitting Provider Student in an Organized Health Care Education/Training Program; Emergency Provider Emergency Medicine; Visit Provider Student in an Organized Health Care Education/Training Program | DX: R55 Syncope and collapse (principal) | CPT/HCPCS: 99235; 99499 ==

== ENCOUNTER 2023-07-04 12:21 | Outpatient (AMB) | payer MEDICARE, SELFPAY ==
--- NOTE | 2023-07-04 12:33 | A.OFFVIS_ITS ---
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 Recently she was in the hospital because she developed sudden-onset retrosternal chest pain with shortness of breath at rest. She was then evaluated in the hospital and her troponins an EKG was unremarkable she was subsequently discharged home. There is a mention of synco pe episode although patient's son denies that. Patient comes for evaluation of a pacemaker in her chest pain that was present recently. She also complains of the pain at the pacemaker site especially with some migration of further of the pacemaker. As you may recall she had undergone surgery for pacemaker movement causing discomfort. [facility], LATER [facility] Medical History Chest pressure Osteoporosis (~2007) Tubular adenoma of colon (~2019) Post-menopausal Left arm swelling Swelling of lymph node Cardiac pacemaker in situ (~2018) Sick sinus syndrome Overweight (BMI 25.0-29.9) Insomnia Degenerative joint disease Nocturnal leg cramps Dementia without behavioral disturbance GERD (gastroesophageal reflux disease) Constipation Vitamin D deficiency Neuropathy Vitamin B12 deficiency Epilepsy (~1998) Anemia Sinus bradycardia Pure hypercholesterolemia Diabetes mellitus Surgical History History of endoscopy History of ankle surgery (~2011) History of partial gastrectomy History of colonoscopy History of pacemaker (~2018) History of hysterectomy Family History Father Medical history unknown Mother No problems noted. Daughter No problems noted. Son No problems noted. 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 Cognitive needs: No Hearing needs: No Vision needs: Yes Review of Systems Const Denies chills, Denies fatigue, Denies fever(s), Denies frequent falls, Denies weakness, Denies weight gain and Denies weight loss ENT Denies dizziness Card Denies chest pain, Denies leg edema, Denies lightheadedness, Denies palpitations, Denies dyspnea, Denies dyspnea on exertion, Denies orthopnea and Denies other (loss of consciousness) Resp Denies cough, Denies dyspnea and Denies dyspnea on exertion GI Denies hematochezia and Denies change in stool character Musc Denies abnormal gait, Denies muscle weakness, Denies numbness, Denies radiating pain into limb and Denies tingling Neuro Denies abnormal gait, Denies dizziness, Denies frequent falls, Denies numbness, Denies tingling and Denies weakness Endo Denies fatigue and Denies palpitations Physical Exam Vital Signs: Last Vital Signs Pulse 60 07/04/23 12:34 BP 120/70 07/04/23 12:34 BMI result Body Mass Index 19.1 Const General: cooperative, comfortable, no acute distress, alert and awake Orientation/consciousness: patient oriented x3 Limitations: no limitations Neck Neck: Yes trachea midline, Yes supple and Yes no JVD Chest Chest palpation & inspection: normal inspection of the chest Resp Effort & Inspection: normal respiratory effort Auscultation: clear to auscultation bilaterally Cardio Jugular venous distension: no JVD Palpation: normal PMI Rate: regular rate Rhythm: regular rhythm Heart sounds: S1 normal heart sound present and S2 normal heart sound present Skin General skin exam: no rashes or lesions noted Neuro General: patient oriented x3 and no focal motor deficits Extrem General: Yes no clubbing, cyanosis or edema Office Procedures Cardiac Device Check Cardiac Device Check Details: Dual-chamber pacemaker in place. Programmed in MVP mode with rate response at 60 beats per minute. Atrial pacing 67% of time. No arrhythmias detected. Atrial ventricular sensing is adequate. Pacing lead impedance is stable. Atrial pacing thresholds adequate and reprogrammed to enhance battery life. Ventricular pacing thresholds adequate. Battery life is at about 8.9 years [id number] Cardiac Device Check, pacemaker dual lead Procedure code (CPT) selection complete Assessment & Plan Assessment & Plan (1) Cardiac pacemaker in situ: Onset Date: ~2018 Comment: (Medtronic DCPP - placed 12/2018 - pocket revision 10/2021) Code(s): Z95.0 - Presence of cardiac pacemaker Plan: Cardiac pacemaker in-situ for sick sinus syndrome. Pacemaker is working well. Reprogrammed for adequate function. Will follow remotely every 3 months and follow up in the clinic in 1 year's time. (2) Chest pain: Code(s): R07.9 - Chest pain, unspecified Qualifiers: Chest pain type: precordial pain Qualified Code(s): R07.2 - Precordial pain Plan: Recent hospitalization which chest pressure shortness of breath at rest. Risk factors. We discussed about further workup for this. They will prefer to workup from cardiac perspective. Will perform a vasodilating myocardial perfusion imaging to further assess for myocardial ischemia. This is negative good prognosis with this was discussed. Continue risk factor modification with control of diabetes and hyperlipidemia as per your office. Will follow up in the clinic in 1 year's time, sooner p.r.n.. Thank you for allowing me to partake in the care Coding Level of Care Code Est Pt Level 4 (49430) Diagnoses Cardiac pacemaker in situ Z95.0 Chest pain R07.2 Chest pain type: precordial pain CPT Codes Cardiac Device Check - Cardiac Device 2: [id number] Cardiac Device Check, pacemaker dual lead ([id number])
[2023-07-04 12:34] VITALS: BP 120/70; PULSE 60; BMI 19.1
== END 2023-07-04 12:53 | disposition home or self-care (01) ==
PROVIDERS: Visit Provider Internal Medicine Cardiovascular Disease
DX: R07.2 Precordial pain (principal); I49.5 Sick sinus syndrome; Z95.0 Presence of cardiac pacemaker
CPT/HCPCS: 93280; 99214

== ENCOUNTER → 2023-07-04 12:21 | Outpatient (BNVA) | payer MEDICARE, SELFPAY | PROVIDERS: Visit Provider Internal Medicine Cardiovascular Disease | DX: Z45.018 Encounter for adjustment and management of other part of cardiac pacemaker (principal); R07.2 Precordial pain | CPT/HCPCS: 93280; 99212 ==

== ENCOUNTER 2023-07-06 11:18 | Outpatient (AMB) | payer MEDICARE, SELFPAY ==
--- NOTE | 2023-07-06 11:27 | A.OFFVIS_ITS ---
Intake Vital Signs 07/06/23 11:30 Height 4 ft 11 in Weight 94 lb BMI 19.0 BP 138/62 Blood Pressure Location Lt brachial Position Sitting Pulse 81 Intake Visit Reasons: 4 month fu Intake Note: Patient 4 month follow up Patient cc: acid reflex and diarrhea. Denies any other GI issues. Funds Development Director Required: No Accompanied by: Son Allergies Penicillins Allergy (Intermediate, Verified 07/06/23 11:26) RASH Medication List - Last Reconciled 07/06/23 by Lebron Milian MD atorvastatin 40 mg PO BEDTIME 90 days bisacodyl (Dulcolax (bisacodyl)) 5 mg PO BEDTIME cholecalciferol (vitamin D3) (Vitamin D3) 50 mcg PO BID cyanocobalamin (vitamin B-12) 1,000 mcg PO DAILY docusate sodium (DOK) 100 mg PO BEDTIME PRN 90 days gabapentin 300 mg PO BEDTIME 30 days latanoprost 0.005% 1 drp ophthalmic (eye) BEDTIME levetiracetam 750 mg PO BID metformin 500 mg PO BID 90 days omeprazole 20 mg PO DAILY 90 days sennosides (senna) 17.2 mg (2 x 8.6 mg) PO BID PRN 90 days HPI 4 month fu HPI Details GI CLINIC VISIT FOR THIS 83-YEAR-OLD BULGARIAN-SPEAKING FEMALE FOLLOWED IN GI FOR GERD, CONSTIPATION AND RECTAL PROLAPSE: ?LABS IN [facility]:?01/27/20 CBC SHOWED MILD ANEMIA WITH H&H OF 10.2 AND 31.6, PLATELET 262, NORMAL CHEM PANEL AND LFTS, VITAMIN B12 1558, FOLATE 16.3 ?IMAGING STUDIES: NO RECENT GI IMAGING ?ENDOSCOPIC STUDIES: 02/13/20 EGD AND COLONOSCOPY SHOWED: ? STOMACH: Bilroth 1 Gastric anatomy. A 10 mm white nodule in the gastric body - biopsied. Mild diffuse gastric erythema. Biopsies were obtained. Grade 2 flap valve on retroflexed examination of the cardia. ? DUODENUM: Normal biopsied for celiac sprue. ? Colonoscopy Findings: ? One small adenomatous polyp removed ? Moderate diverticulosis seen in the entire colon ? Small hemorrhoids on retroflexed exam. ? Plan: ? Patient has an appointment on 03/19/20 in the GI Clinic with Lebron Milian M.D.-. ? Repeat Colonoscopy interval based on path results - in 5 years if polyp is adenomatous and 10 years if polyps are hyperplastic. ?BIOPSIES SHOWED: ? A. Small bowel, biopsy: Small intestinal mucosa within normal limits. ? B. Stomach, biopsy: Antral-type and oxyntic mucosa with mild chronic inactive inflammation; no Helicobacter organisms seen. ? C. Stomach nodule: Gastric mucosa with mild chronic mucosal inflammation and foamy macrophages consistent with xanthoma; no Helicobacter organism seen. ? D. Colon, random, biopsy: Colonic mucosa within normal limits. ? E. Colon, sigmoid, polypectomy: Tubular adenoma; no high grade dysplasia or carcinoma seen. ?TODAY'S VISIT Pt is accompanied by her son who interpreted for the patient Has been taking the medications and having a BM twice a day. Takes 1 capsule of Senna and one capsule of colace twice a day with good results Stool are sometimes soft and sometimes hard. (twice She has to push sonetimes if she feels constipated Noted some diarrhea today Not taking iron due to constipation PAST VISITS: Complains of constipation - last BM was 3 days ago. Usually has a BM 3 times a week with passage of hard stools Constipation is not as bad as before Has a BM daily or every two days in the morning. BM are soft and she is able to go after pushing a little bit. Not eating very much - feels full fast. Not taking iron anymore. Followed by Dr Segura in Oncology and on procrit injections prn if HB is less than 10.5 No BM for the past 2 days. Had Senna, Miralax and dulcolax. Also takes prunes. Denies black stools or rectal bleeding. Pt feels some thing hard in the rectum and has rectal pain. Mild fever this am. Resumed taking iron due to worsening anemia. Taking iron every other day. ?? ? Continues to have intermittent constipation - has a BM 1-2 times a day. If she gets constipated, it may take her a week to have a BM - takes prunes and fruits which helps. Taking Alive a multivitamin with probiotics every other day ?? ? Can go 2 to 3 days without a BM. ?? ? Has hard stools with straining - afraid to get a hemorrhoid. Denies uterine or rectal prolapse. Chronic MEGAN (due to partial gastrectomy) and does not take oral iron due to worsening constipation Offered IV iron and patient refused [facility] Medical History Chest pressure Osteoporosis (~2007) Tubular adenoma of colon (~2019) Post-menopausal Left arm swelling Swelling of lymph node Cardiac pacemaker in situ (~2018) Sick sinus syndrome Overweight (BMI 25.0-29.9) Insomnia Degenerative joint disease Nocturnal leg cramps Dementia without behavioral disturbance GERD (gastroesophageal reflux disease) Constipation Vitamin D deficiency Neuropathy Vitamin B12 deficiency Epilepsy (~1998) Anemia Sinus bradycardia Pure hypercholesterolemia Diabetes mellitus Surgical History History of endoscopy History of ankle surgery (~2011) History of partial gastrectomy History of colonoscopy History of pacemaker (~2018) History of hysterectomy Family History Father Medical history unknown Mother No problems noted. Daughter No problems noted. Son No problems noted. 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 Cognitive needs: No Hearing needs: No Vision needs: Yes Review of Systems Const All systems reviewed & are unremarkable except as noted in HPI and below Physical Exam Vital Signs: Last Vital Signs Pulse 81 07/06/23 11:30 BP 138/62 07/06/23 11:30 BMI result Body Mass Index 19.0 Const General: no acute distress and other (frail appearing) Nutritional Appearance: underweight Orientation/consciousness: patient oriented x3 Limitations: language barrier and physical limitations (needs assistance with walking and refuses to use a cane) HEENT Head: Yes normal to inspection Ears: hearing grossly normal bilaterally Eyes Sclerae: sclerae normal Pupils: Equal, round and reactive pupils present Neck Neck: Yes normal visual inspection Chest Chest palpation & inspection: normal inspection of the chest Resp Effort & Inspection: normal respiratory effort Auscultation: clear to auscultation bilaterally Cardio Palpation: normal PMI Rate: regular rate Rhythm: regular rhythm Heart sounds: S1 normal heart sound present, S2 normal heart sound present and no murmurs GI Palpation (GI): Soft to palpation, nontender and No hepatosplenomegaly present Auscultation: normal bowel sounds Rectal Exam - Female: deferred Skin General skin exam: no rashes or lesions noted Neuro General: patient oriented x3, gait normal and moves all extremities Cranial nerves: Yes Equal, round and reactive pupils present Psych Appearance: grossly normal Mental Status: mental status grossly normal Assessment & Plan Assessment & Plan (1) Iron deficiency anemia: Comment: Likely due to partial gastrectomy Code(s): D50.9 - Iron deficiency anemia, unspecified (2) GERD (gastroesophageal reflux disease): Code(s): K21.9 - Gastro-esophageal reflux disease without esophagitis Qualifiers: Esophagitis presence: without esophagitis Qualified Code(s): K21.9 - Gastro-esophageal reflux disease without esophagitis (3) Constipation: Code(s): K59.00 - Constipation, unspecified Qualifiers: Constipation type: unspecified constipation type Qualified Code(s): K59.00 - Constipation, unspecified (4) Vitamin D deficiency: Code(s): E55.9 - Vitamin D deficiency, unspecified (5) Vitamin B12 deficiency: Comment: (related to partial gastrectomy for PUD) Code(s): E53.8 - Deficiency of other specified B group vitamins Plan 83 year old frisian speaking female followed in GI for GERD, chronic constipation, iron deficiency any, fecal incontinence and suspected rectal prolapse. 02/13/20 EGD and Colonoscopy showed: Bilroth 1 Gastric anatomy. 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 Mild diffuse gastric erythema. Biopsies were negative for H pylori.? Duodenal biopsies were negative for celiac sprue 02/13/20 colonoscopy showed Diverticulosis and one small adenomatous polyp removed. Repeat colonoscopy is advised in 5 years (if pt remains in stable health)? - action set in [facility]. Pt has not been taking Miralax on a regular basis and resumed taking it when she felt worsening constipation. Pt was advised to take a rectal suppository and if no results to take a fleet enema. Advised to go to the ER for large volume tap water enema if she is unable to have a BM. She is to resume taking Miralax 1-2 times daily. Patient was offered referral to physical therapy for the pelvic floor which she declined. If patient continues to have constipation on FU, she will be prescribed Amitiza or Linzess. 10/13/22 Pt advised to resume taking iron every other day due to worsening MEGAN. To take a can of Glucerna once a day (pt takes one meal a day and takes coffee, fruit and snacks the rest of the day 03/02/23 Pt was advised to increase Senna to 1 tab twice daily and (then to 2 tab twice daily if no improvement in constipation) and take a stool softener at bedtime p.r.n. 07/06/23 Pt advised to increase senna and docusate to 2 capsules twice a day if she is unable to have a bowel movement 1-2 days. If no results to take 2 capsules of Dulcolax p.r.n. Pt is scheduled to see Dr Segura in 3 months with repeat labs to FU on anemia Follow-up appointment in 6 months to FU on MEGAN and?constipation Medications: Changed From bisacodyl (Dulcolax (bisacodyl)) 5 mg PO BEDTIME To bisacodyl (Dulcolax (bisacodyl)) to use if no bowel movement for 2-3 days 10 mg (2 x 5 mg) PO BEDTIME PRN 10 tabs 1RF constipation 30 days Patient Instructions: If you are unable to have a bowel movement for 1-2 days, you can increase the Senna and the red/orange capsule to 2 capsules twice a day. If you are still not able to go, you can take 2 tablets/capsules of Dulcolax Coding Level of Care Code Est Pt Level 4 (07373) Diagnoses Iron deficiency anemia D50.9 Gastroesophageal reflux disease without esophagitis K21.9 Esophagitis presence: without esophagitis Constipation, unspecified constipation type K59.00 Constipation type: unspecified constipation type Vitamin D deficiency E55.9 Vitamin B12 deficiency E53.8 Time Spent (min) 20
[2023-07-06 11:30] VITALS: BP 138/62; PULSE 81; BMI 19.0
== END 2023-07-06 12:09 | disposition home or self-care (01) ==
PROVIDERS: PCP Internal Medicine; Visit Provider Internal Medicine Gastroenterology
DX: D50.9 Iron deficiency anemia, unspecified (principal); K21.9 Gastro-esophageal reflux disease without esophagitis; K59.00 Constipation, unspecified; E55.9 Vitamin D deficiency, unspecified; E53.8 Deficiency of other specified B group vitamins
CPT/HCPCS: 99214

== ENCOUNTER → 2023-07-06 11:18 | Outpatient (BNVA) | payer MEDICARE, SELFPAY | PROVIDERS: PCP Internal Medicine; Visit Provider Internal Medicine Gastroenterology | DX: K21.9 Gastro-esophageal reflux disease without esophagitis (principal); K59.00 Constipation, unspecified; D50.9 Iron deficiency anemia, unspecified; E55.9 Vitamin D deficiency, unspecified; E53.8 Deficiency of other specified B group vitamins | CPT/HCPCS: 99212 ==

== ENCOUNTER → 2023-08-19 23:59 | Outpatient (BNV) | payer MEDICARE, SELFPAY ==
--- NOTE | 2023-08-23 09:58 | MHC.OFFVIS ---
Intake Intake Visit Reasons: Remote Device Check- [employer]tr[employer] Allergies Penicillins Allergy (Intermediate, Verified 07/06/23 11:26) RASH PFSH Medical History Chest pressure Osteoporosis (~2007) Tubular adenoma of colon (~2019) Post-menopausal Left arm swelling Swelling of lymph node Cardiac pacemaker in situ (~2018) Sick sinus syndrome Overweight (BMI 25.0-29.9) Insomnia Degenerative joint disease Nocturnal leg cramps Dementia without behavioral disturbance GERD (gastroesophageal reflux disease) Constipation Vitamin D deficiency Neuropathy Vitamin B12 deficiency Epilepsy (~1998) Anemia Sinus bradycardia Pure hypercholesterolemia Diabetes mellitus Surgical History History of endoscopy History of ankle surgery (~2011) History of partial gastrectomy History of colonoscopy History of pacemaker (~2018) History of hysterectomy Family History Father Medical history unknown Mother No problems noted. Daughter No problems noted. Son No problems noted. 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 Pacemaker function is adequate [id number] Cardiac Device Interrogation, pacemaker Procedure code (CPT) selection complete Assessment & Plan Assessment & Plan (1) Cardiac pacemaker in situ: Onset Date: ~2018 Comment: (Medtronic DCPP - placed 12/2018 - pocket revision 10/2021) Code(s): Z95.0 - Presence of cardiac pacemaker Plan: See above Coding Level of Care Code Procedure Only Diagnoses Cardiac pacemaker in situ Z95.0 CPT Codes Cardiac Device Check - Cardiac Device 12: [id number] Cardiac Device Interrogation, pacemaker ([id number])
== END ==
PROVIDERS: PCP Internal Medicine; Visit Provider Internal Medicine Cardiovascular Disease
DX: I49.5 Sick sinus syndrome (principal); Z95.0 Presence of cardiac pacemaker
CPT/HCPCS: 93294

== ENCOUNTER 2023-09-13 08:42 | Outpatient (REF) | payer MEDICARE, SELFPAY ==
[2023-09-13 09:07] LABS: MANUAL DIFF FLAG NO
[2023-09-13 09:24] LABS: Appearance Urine Clear; Color Urine Yellow; Glucose Urine UA 250 mg/dL (Negative); Leukocyte Esterase Urine Small (1+) (Negative); Nitrite Urine Positive (Negative); PH 5.5 (5.0-9.0); UMIC TRIGGER UACC YES; Urine Blood Negative (Negative); Urine Ketones Negative (Negative); Urine Protein Negative (Neg-Trace)
[2023-09-13 09:29] LABS: Bacteria Urine 4+ (None Seen); Hyaline Casts Urine 0-2 /LPF (0-2); RBC Urine 0-2 /HPF (0-2); Squamous Epithelial Cell Urine 0-2 /HPF (0-2); UACC Culture Trigger YES
[2023-09-13 09:30] LABS: Estimated Average Glucose 140 mg/dL; Hemoglobin A1c % 6.5 % (<6.0)
[2023-09-13 09:37] LABS: Basophils Percent Auto 0.9 % (0-2); Eosinophils Absolute Auto 0.1 X10*3/uL (0.0-0.4); Eosinophils Percent Auto 1.5 % (0-4); Hematocrit 34.5 % (37.0-47.0); Lymphocytes Absolute Auto 1.2 X10*3/uL (1.2-4.9); Lymphocytes Percent Auto 36.5 % (20-40); Mean Corpuscular HGB Conc 31.9 g/dl (31.0-35.0); Mean Corpuscular Hemoglobin 30.3 pg (27.0-33.0); Monocytes Absolute Auto 0.4 X10*3/uL (0.1-1.2); Monocytes Percent Auto 13.5 % (2-11); Neutrophils Absolute Auto 1.6 x10*3/uL (2.0-8.3); Neutrophils Percent Auto 47.6 % (45-73); Platelet Count 234 X10*3/uL (160-400); Red Blood Count 3.63 X10*6/uL (4.20-5.50); Red Cell Distribution Width 13.4 % (11.0-16.0); White Blood Count 3.3 X10*3/uL (4.8-10.8)
[2023-09-13 10:08] LABS: Creatinine Urine 38.79 mg/dL; Microalbum/Creatinine Ratio Ur 28.3 ug/mg cr (<30)
[2023-09-13 10:12] LABS: Alanine Aminotransferase 19 U/L (0-31); Albumin Level 3.8 g/dL (3.5-5.0); Alkaline Phosphatase 66 U/L (39-117); Anion Gap 13 (12-20); Aspartate Amino Transferase 20 U/L (5-31); Bilirubin Total 0.6 mg/dL (0.0-1.0); Blood Urea Nitrogen 8 mg/dL (9-16); Calcium 8.9 mg/dL (8.4-10.2); Carbon Dioxide 22 mmol/L (22-29); Chloride 109 mmol/L (96-108); Cholesterol 142 mg/dL (<200); Estimated Glomerular Filt Rate > 60; Glucose Fasting 100 mg/dL (60-99); HDL Cholesterol 57 mg/dL (>40); LDL Cholesterol Calculated 73 mg/dL (<100); Potassium 4.2 mmol/L (3.3-5.1); Sodium 140 mmol/L (135-145); Total Protein 6.7 g/dL (6.5-8.0); Triglycerides 64 mg/dL (<150)
[2023-09-13 10:29] LABS: TSH reflex Free T4 1.18 uIU/mL (0.32-4.0); Vitamin D 25-OH Total 36.7 ng/mL (>30)
[2023-09-13 10:41] LABS: Vitamin B12 1420 pg/mL (200-900)
[2023-09-16 20:09] LABS: Levetiracetam Keppra 27.7 mcg/mL (6.0-46.0)
== END 2023-09-13 08:43 | disposition home or self-care (01) ==
LOC: HO.LAB 08:42
PROVIDERS: PCP Internal Medicine; Visit Provider Internal Medicine
DX: E78.00 Pure hypercholesterolemia, unspecified (principal); E53.8 Deficiency of other specified B group vitamins; G40.909 Epilepsy, unspecified, not intractable, without status epilepticus; E11.9 Type 2 diabetes mellitus without complications; I10 Essential (primary) hypertension; E55.9 Vitamin D deficiency, unspecified; R30.0 Dysuria
CPT/HCPCS: 36415; 80053; 80061; 80177; 81001; 82043; 82306; 82570; 82607; 82746; 83036; 84443; 85025; 87086; 87088; 87186

== ENCOUNTER 2023-09-15 14:39 | Outpatient (AMB) | payer MEDICARE, SELFPAY ==
[2023-09-15 14:43] VITALS: BP 126/84; PULSE 95; O2SAT 98; BMI 19.0
--- NOTE | 2023-09-15 14:43 | A.OFFPC_ITS ---
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: No Accompanied by: Self / Same As Patient Allergies Penicillins Allergy (Intermediate, Verified 09/15/23 15:51) RASH Medication List - Last Reconciled 09/15/23 by Cuate Oscar MD alendronate 70 mg PO QWEEK atorvastatin 40 mg PO BEDTIME 90 days bisacodyl (Dulcolax (bisacodyl)) 10 mg (2 x 5 mg) PO BEDTIME PRN 30 days cholecalciferol (vitamin D3) (Vitamin D3) 50 mcg PO BID cyanocobalamin (vitamin B-12) 1,000 mcg PO DAILY docusate sodium 100 mg PO BEDTIME PRN gabapentin 300 mg PO BEDTIME 30 days latanoprost 0.005% 1 drp ophthalmic (eye) BEDTIME levetiracetam 750 mg PO BID 30 days metformin 500 mg PO BID 90 days omeprazole 20 mg PO DAILY 90 days sennosides (senna) 17.2 mg (2 x 8.6 mg) PO BID PRN 90 days Tobacco use date assessed: 09/15/23 Fall risk assessment: No Falls in past year Last assessed Fall Risk: 09/15/23 Dental Screening Dental Screen Date: 09/15/23 Did you have a dental visit in the last 12 months?: No Did you have a dental problem in the last 6 months where you did not have access to dental care?: No Was dental information given to patient?: No HPI DM, hyperlipidemia, HTN, neuropathy, GERD HPI Details Patient comes in today for her follow up visit States that she feels okay except for her toenails, which she states have been bothering her (pain) lately She denies any headaches or dizziness Denies any chest pains, no SOB No nausea/vomiting, no abdominal pain No change in bowel habits noted Had her follow up labs done a couple of days ago - to discuss her results [facility] Medical History Chest pressure Osteoporosis (~2007) Tubular adenoma of colon (~2019) Post-menopausal Left arm swelling Swelling of lymph node Cardiac pacemaker in situ (~2018) Sick sinus syndrome Overweight (BMI 25.0-29.9) Insomnia Degenerative joint disease Nocturnal leg cramps Dementia without behavioral disturbance GERD (gastroesophageal reflux disease) Constipation Vitamin D deficiency Neuropathy Vitamin B12 deficiency Epilepsy (~1998) Anemia Sinus bradycardia Pure hypercholesterolemia Diabetes mellitus Surgical History History of endoscopy History of ankle surgery (~2011) History of partial gastrectomy History of colonoscopy History of pacemaker (~2018) History of hysterectomy Family History Father Medical history unknown Mother No problems noted. Daughter No problems noted. Son No problems noted. Other Substance use disorder Social History Household Members: None Housing: House Are you a primary care connector to a significant other at home: No Do you presently have visiting nurse or other home services: No Alcohol intake: never Patient Tobacco Use Status: Never used Tobacco Tobacco use type: Cigarette e-Cigarette/Vaping Use: Never Used Second Hand Smoke Exposure: No service: No Current occupational status: retired Current occupation: [employer] Cognitive needs: No Hearing needs: No Vision needs: Yes Questionnaire PHQ-9 Over the last 2 weeks, how often have you been bothered by any of the following problems? 1. Little interest or pleasure in doing things: not at all 2. Feeling down, depressed, or hopeless: not at all 3. Trouble falling or staying asleep, or sleeping too much: not at all 4. Feeling tired or having little energy: not at all 5. Poor appetite or overeating: not at all 6. Feeling bad about yourself - or that you are a failure or have let yourself or your family down: not at all 7. Trouble concentrating on things, such as reading the newspaper or watching television: not at all 8. Moving or speaking so slowly that other people could have noticed. Or the opposite - being so fidgety or restless that you have been moving around a lot more than usual: not at all 9. Thoughts that you would be better off or of hurting yourself in some way: not at all Total score: 0 Depression Screening Interpretation: Negative Depression Screening Done: Yes 41423 - PHQ-9 Billing: Yes Source: Developed by Drs. Yash Harris, Noemi Kaur, Alexander Parnell and colleagues, with an educational brittany from [employer]. Thrive Questionnaire Date Thrive assessed: 09/15/23 I am a: Patient What is your living situation today?: I have a steady place to live Within the past 12 months, did the food you bought not last and you didn't have the money to get more?: Never true Within the past 12 months, did you worry whether your food would run out before you got money to buy more?: Never true Do you have trouble paying for medicines?: No Do you have trouble getting transportation to medical appointments?: No Do you have trouble paying your heating and electricity bill?: No Do you have trouble taking care of your child, family member or friend?: No Do you have trouble with day-to-day activities such as bathing, preparing meals, shopping, managing finances, etc.?: No Are you currently unemployed and looking for a job?: No Are you interested in more education?: No Please select the resources that you would like help with: None Currently or been in a relationship where the following occur: no concerns reported THRIVE Score: 0 AUDIT C Alcohol Use Questionnaire (AUDIT-C) 1. How often do you have a drink containing alcohol?: Never 3. How often do you have six or more drinks on one occasion?: Never Total Score: 0 Score Reviewed/Action Taken: Yes SHER-7 AMB Questionnaire SHER-7 Date SHER - 7 assessed: 09/15/23 Feeling nervous, anxious, or on edge: 0 = Not at all Not being able to stop or control worryin = Not at all Worrying too much about different things: 0 = Not at all Trouble relaxin = Not at all Being so restless that it is hard to sit still: 0 = Not at all Becoming easily annoyed or irritable: 0 = Not at all Feeling afraid as if something awful might happen: 0 = Not at all Total SHER-7 score (0-4 normal; 5-9 mild; 10-14 moderate; 15-21 severe): 0 Source: Developed by Drs. Yash Harris, Noemi Kaur, Alexander Parnell and colleagues, with an educational brittany from [employer]. Review of Systems Const Denies chills, Reports fatigue, Denies fever(s) and Denies headache(s) ENT Denies dysphagia, Denies dizziness, Denies otalgia, Denies headache(s), Denies neck pain, Denies odynophagia and Denies sore throat Card Denies chest pain, Denies palpitations and Denies dyspnea Resp Denies cough, Denies dyspnea and Denies wheezing GI Denies abdominal pain, Denies constipation, Denies dysphagia, Denies heartburn, Denies diarrhea, Denies nausea, Denies odynophagia and Denies vomiting Denies difficulty voiding, Denies nocturia, Denies dysuria and Denies urinary urgency Musc Denies neck pain Skin/Breast Details: increased pain over her toenails (on both feet) lately Denies rash Neuro Denies dizziness, Denies headache(s) and Reports radicular pain (improved on Gabapentin) Endo Reports fatigue and Denies palpitations Aller/Immun Denies wheezing Physical exam (Primary Care) Vital Signs: Last Vital Signs Pulse 95 09/15/23 14:43 BP 126/84 09/15/23 14:43 Pulse Ox 98 09/15/23 14:43 Oxygen Delivery Method Room Air 09/15/23 14:43 BMI result Body Mass Index 19.0 Tobacco/Smoking Status: Tobacco use Status Tobacco use date assessed 09/15/23 09/15/23 14:51 Patient Tobacco Use Status Never used Tobacco 09/15/23 14:51 Tobacco use type Cigarette 09/15/23 14:51 e-Cigarette/Vaping Use Never Used 09/15/23 14:51 PHQ-9: PHQ-9 Score PHQ-9: Total score 0 09/15/23 14:51 Depression Screening Interpretation: Negative Thrive Assessment: Date of Thrive Assessment Date Thrive assessed 09/15/23 09/15/23 14:51 Currently or been in a relationship where the following occur: no concerns reported Const General: no acute distress and alert HENMT Ears: TM's normal bilaterally and EAC's normal Throat: Yes posterior oropharynx normal and Yes tonsils normal (no TP congestion) Neck Neck: Yes no lymphadenopathy and Yes supple Resp Auscultation: clear to auscultation bilaterally, no rales and no wheezes Cardio Rate: regular rate Rhythm: regular rhythm Heart sounds: no murmurs GI Palpation (GI): Soft to palpation and nontender Auscultation: normal bowel sounds Back/Spine/Pelvis Thoracic/Lumbar Spine: No lumbar spinal tenderness Skin Rashes: no rashes Extrem Other: (+) onycholysis of several toenails on both feet General: Yes no clubbing, cyanosis or edema Left upper extremity: shoulder/upper arm Details: tenderness Location: of the A- C joint; no swelling Right lower extremity: normal to inspection Left lower extremity: normal to inspection Results Reviewed Results Reviewed: Laboratory Tests 09/13/23 09/13/23 09:00 09:05 WBC 3.3 L Hgb 11.0 L Hct 34.5 L Plt Count 234 Sodium 140 Potassium 4.2 Creatinine 0.84 Estimated GFR > 60 Fasting Glucose 100 H Hemoglobin A1c % 6.5 H Calcium 8.9 D AST 20 ALT 19 Triglycerides 64 Cholesterol 142 LDL Cholesterol, Calc 73 HDL Cholesterol 57 Vitamin B12 1420 H 25-OH Vitamin D Total 36.7 TSH 1.18 Ur Specific [place] 1.010 Urine Protein Negative Urine Glucose (UA) 250 H Urine Blood Negative Urine Nitrite Positive H Ur Leukocyte Esterase Small (1+) H Microalb/Creat Ratio 28.3 Assessment and Plan Assessment & Plan (1) Pure hypercholesterolemia: Code(s): E78.00 - Pure hypercholesterolemia, unspecified Plan: Results of her labs done a couple of days ago reviewed and discussed with patient Reinforced low cholesterol diet Continue Atorvastatin 40 mg QD Will recheck her labs and fasting lipids in 4 months for follow-up (2) Diabetes mellitus: Code(s): E11.9 - Type 2 diabetes mellitus without complications Qualifiers: Diabetes mellitus type: type 2 Diabetes mellitus care home insulin use: without salvage determiner use Diabetes mellitus complication status: with neurologic complications Diabetes mellitus complication detail: with unspecified neuropathy Qualified Code(s): E11.40 - Type 2 diabetes mellitus with diabetic neuropathy, unspecified Plan: HgbA1c was at 6.5% on her labs done a couple of days ago (was at 6.7% previously) - goal is at least <7.0% Reinforced diabetic diet Continue Metformin 500 mg BID (3) Sinus bradycardia: Comment: (s/p [employer] DCPP placed 2019) Code(s): R00.1 - Bradycardia, unspecified Plan: Due to sick sinus syndrome - S/P dual-chamber permanent pacemaker insertion in 2018 with no recurrence of symptoms since Follow up with cardiology as scheduled (4) Anemia: Code(s): D64.9 - Anemia, unspecified Qualifiers: Anemia type: unspecified type Qualified Code(s): D64.9 - Anemia, unspecified Plan: Her H/H have declined recently and she is now again slightly anemic at 11.0/ 34.5 on her labs done a couple of days ago S/P IV iron infusion x 1 back in April 2022 and she apparently has not needed any more infusions afterwards Was recommended by hematology to continue on Procrit but only if her Hgb drops below 10 .5 Will continue to monitor her CBC regularly Follow up with hematology as scheduled (5) Epilepsy: Onset Date: ~1998 Comment: Complex partial seizure Code(s): G40.909 - Epilepsy, unspecified, not intractable, without status epilepticus Qualifiers: Epilepsy type: unspecified Intractability: not intractable Status epilepticus: without status epilepticus Qualified Code(s): G40.909 - Epilepsy, unspecified, not intractable, without status epilepticus Plan: Complex partial seizure with no recurrence Continue Levetiracetam 750 mg BID Follow-up with Neurology as scheduled (6) Vitamin B12 deficiency: Comment: (related to partial gastrectomy for PUD) Code(s): E53.8 - Deficiency of other specified B group vitamins Plan: Continue oral Vitamin B12 tablets 1000 mcg QD (7) Neuropathy: Code(s): G62.9 - Polyneuropathy, unspecified Plan: EMG and NCV done back in April 2018 showed findings consistent with peripheral neuropathy Repeat NCV & EMG done in February 2023 showed (+) 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 and findings that are consistent with minimal chronic neuropathic changes in the EDB muscle States that her symptoms have improved a lot on Gabapentin, which she currently takes at 300 mg Q HS (8) Nocturnal leg cramps: Code(s): G47.62 - Sleep related leg cramps Plan: Continue Ropinirole 0.25 mg Q HS and Tizanidine 2 mg Q HS PRN for her leg cramps (9) Vitamin D deficiency: Code(s): E55.9 - Vitamin D deficiency, unspecified Plan: Continue Vitamin-D3 2000 units QD (10) Constipation: Code(s): K59.00 - Constipation, unspecified Qualifiers: Constipation type: unspecified constipation type Qualified Code(s): K59.00 - Constipation, unspecified Plan: Encouraged increased oral fluids and dietary fiber Continue MiraLax 17 g daily and Colace 100 mg 1 to 2 times a day as needed (11) GERD (gastroesophageal reflux disease): Code(s): K21.9 - Gastro-esophageal reflux disease without esophagitis Qualifiers: Esophagitis presence: without esophagitis Qualified Code(s): K21.9 - Gastro-esophageal reflux disease without esophagitis Plan: Dietary restrictions reinforced Continue Omeprazole 20 mg QD (12) Dementia without behavioral disturbance: Code(s): F03.90 - Unspecified dementia, unspecified severity, without behavioral disturbance, psychotic disturbance, mood disturbance, and anxiety Plan: Patient's dementia appears stable, per family Follow up with Neurology as scheduled (13) Degenerative joint disease: Code(s): M19.90 - Unspecified osteoarthritis, unspecified site Qualifiers: Osteoarthritis location: unspecified site Osteoarthritis type: unspecified Qualified Code(s): M19.90 - Unspecified osteoarthritis, unspecified site Plan: S/P? medial and lateral malleolar fractures of the left ankle in? 2011 -? symptoms have been manageable (14) Onycholysis of toenail: Code(s): L60.1 - Onycholysis Plan: Involving multiple toenails Have advised patient that she needs to see podiatry to have these addressed but she declined referral States that the last time she saw podiatry, he took out a couple of her toenails and she recalls experiencing nothing but pain during the procedure Have advised patient that she can call for the referral anytime she changes her mind on this (15) Glaucoma: Code(s): H40.9 - Unspecified glaucoma Qualifiers: Glaucoma type: unspecified Laterality: unspecified laterality Qualified Code(s): H40.9 - Unspecified glaucoma Plan: Continue Brimonidine eyedrops 0.1% BID Follow up with ophthalmology as scheduled (16) Insomnia: Code(s): G47.00 - Insomnia, unspecified Qualifiers: Insomnia type: unspecified Qualified Code(s): G47.00 - Insomnia, unspecified Plan: Sleep hygiene reinforced Continue Melatonin 5 mg once a day at bedtime as needed Plan Follow up in 4 months Orders: Orders Complete Blood Count Auto Diff 4 Months D64.9 - Anemia, unspecified Hemoglobin A1c 4 Months E11.9 - Type 2 diabetes mellitus without complications UA CC w/rflx Micro + Cult 4 Months R30.0 - Dysuria TSH reflex Free T4 4 Months E78.00 - Pure hypercholesterolemia, unspecified Comprehensive [place]. Panel Fast 4 Months E78.00 - Pure hypercholesterolemia, unspecified Lipid Panel 4 Months E78.00 - Pure hypercholesterolemia, unspecified Levetiracetam Keppra 4 Months G40.909 - Epilepsy, unspecified, not intractable, without status epilepticus Vitamin B12 and Folate 4 Months E53.8 - Deficiency of other specified B group vitamins Vitamin D 25-OH Total 4 Months E55.9 - Vitamin D deficiency, unspecified Microalbumin, Random (w Creat) 4 Months E11.9 - Type 2 diabetes mellitus without complications Coding Level of Care Code Est Pt Level 4 (53225) Diagnoses Pure hypercholesterolemia E78.00 Type 2 diabetes mellitus with diabetic neuropathy, without long-term current use of insulin E11.40 Diabetes mellitus type: type 2 Diabetes mellitus care home insulin use: without salvage determiner use Diabetes mellitus complication status: with neurologic complications Diabetes mellitus complication detail: with unspecified neuropathy Sinus bradycardia R00.1 Anemia, unspecified type D64.9 Anemia type: unspecified type Nonintractable epilepsy without status epilepticus, unspecified epilepsy type G40.909 Epilepsy type: unspecified Intractability: not intractable Status epilepticus: without status epilepticus Vitamin B12 deficiency E53.8 Neuropathy G62.9 Nocturnal leg cramps G47.62 Vitamin D deficiency E55.9 Constipation, unspecified constipation type K59.00 Constipation type: unspecified constipation type Gastroesophageal reflux disease without esophagitis K21.9 Esophagitis presence: without esophagitis Dementia without behavioral disturbance F03.90 Osteoarthritis, unspecified osteoarthritis type, unspecified site M19.90 Osteoarthritis location: unspecified site Osteoarthritis type: unspecified Onycholysis of toenail L60.1 Glaucoma, unspecified glaucoma type, unspecified laterality H40.9 Glaucoma type: unspecified Laterality: unspecified laterality Insomnia, unspecified type G47.00 Insomnia type: unspecified
== END 2023-09-15 15:54 | disposition home or self-care (01) ==
PROVIDERS: PCP Internal Medicine; Visit Provider Internal Medicine
DX: E11.40 Type 2 diabetes mellitus with diabetic neuropathy, unspecified (principal); G40.909 Epilepsy, unspecified, not intractable, without status epilepticus; F03.90 Unspecified dementia, unspecified severity, without behavioral disturbance, psychotic disturbance, mood disturbance, and anxiety; E78.00 Pure hypercholesterolemia, unspecified; R00.1 Bradycardia, unspecified; D64.9 Anemia, unspecified; E53.8 Deficiency of other specified B group vitamins; G62.9 Polyneuropathy, unspecified; G47.62 Sleep related leg cramps; E55.9 Vitamin D deficiency, unspecified; K59.00 Constipation, unspecified; K21.9 Gastro-esophageal reflux disease without esophagitis
CPT/HCPCS: 99214

== ENCOUNTER 2023-10-17 22:08 | Emergency (ER) | payer MEDICARE, SELFPAY ==
[2023-10-17 22:15] VITALS: BP 143/64; BP 158/72; PULSE 62; PULSE 78; RESP 12; TEMP 36.7; O2SAT 96; O2SAT 98; BMI 21.5
[2023-10-17 22:40] LABS: MANUAL DIFF FLAG NO
[2023-10-17 22:41] LABS: Basophils Percent Auto 0.5 % (0-2); Eosinophils Absolute Auto 0.1 X10*3/uL (0.0-0.4); Hematocrit 35.9 % (37.0-47.0); Hemoglobin 11.2 g/dl (12.0-16.0); Imm Gran Abs Auto 0.02 X10*3/uL (0.00-0.03); Imm Gran Pct Auto 0.3 % (0.0-0.4); Lymphocytes Absolute Auto 1.9 X10*3/uL (1.2-4.9); Lymphocytes Percent Auto 30.8 % (20-40); Mean Corpuscular HGB Conc 31.2 g/dl (31.0-35.0); Mean Corpuscular Hemoglobin 30.1 pg (27.0-33.0); Mean Corpuscular Volume 96.5 fL (80.0-98.0); Mean Platelet Volume 11.5 fL (9.4-12.3); Monocytes Absolute Auto 0.7 X10*3/uL (0.1-1.2); Monocytes Percent Auto 12.1 % (2-11); Neutrophils Absolute Auto 3.4 x10*3/uL (2.0-8.3); Neutrophils Percent Auto 55.3 % (45-73); Platelet Count 171 X10*3/uL (160-400); Red Blood Count 3.72 X10*6/uL (4.20-5.50); Red Cell Distribution Width 13.7 % (11.0-16.0); White Blood Count 6.1 X10*3/uL (4.8-10.8)
[2023-10-18 00:57] LABS: Alanine Aminotransferase 17 U/L (0-31); Albumin Level 4.3 g/dL (3.5-5.0); Alkaline Phosphatase 71 U/L (39-117); Anion Gap 15 (12-20); Aspartate Amino Transferase 24 U/L (5-31); Bilirubin Total 0.7 mg/dL (0.0-1.0); Blood Urea Nitrogen 16 mg/dL (9-16); Calcium 9.1 mg/dL (8.4-10.2); Carbon Dioxide 22 mmol/L (22-29); Chloride 108 mmol/L (96-108); Creatinine Clr Calc Pharmacy 32.4; Estimated Glomerular Filt Rate 56; Glucose Random 85 mg/dL (60-115); Potassium 3.8 mmol/L (3.3-5.1); Sodium 141 mmol/L (135-145); Total Protein 7.4 g/dL (6.5-8.0)
--- NOTE | 2023-10-18 01:15 | ED.GENADULT ---
HPI - General Adult General Chief complaint: General Medical Stated complaint: LOWER ABD PAIN [id number] Time Seen by Provider: 10/18/23 01:15 Source: patient Mode of arrival: ambulatory Limitations: no limitations History of Present Illness HPI narrative: Patient been constipated for last 2 weeks while moving her bowel noticed pain in the rectal area with hemorrhoids? coming out had some bright red blood on the stool. No abdominal pain no nausea no vomiting no fever no chills patient had bowel movement earlier today patient was started on Macrobid for UTI 10/11 at this time patient denied any urinary symptoms Related Data Home Medications Medication Instructions Recorded Confirmed latanoprost 0.005 % eye drops 1 drp ophthalmic (eye) BEDTIME 12/30/21 09/15/23 alendronate 70 mg tablet 70 mg PO QWEEK 09/15/23 09/15/23 Previous Rx's Medication Instructions Recorded sennosides 8.6 mg tablet (senna) 17.2 mg (2 x 8.6 mg) PO BID PRN 03/02/23 Constipation 90 days #360 tabs bisacodyl 5 mg tablet,delayed 10 mg (2 x 5 mg) PO BEDTIME PRN 07/06/23 release (Dulcolax (bisacodyl)) constipation 30 days #10 tabs omeprazole 20 mg capsule,delayed 20 mg PO DAILY 90 days #90 caps 07/10/23 release atorvastatin 40 mg tablet 40 mg PO BEDTIME 90 days #90 tabs 08/28/23 levetiracetam 750 mg tablet 750 mg PO BID 30 days #60 tabs 08/28/23 metformin 500 mg tablet 500 mg PO BID 90 days #180 tabs 08/28/23 cholecalciferol (vitamin D3) 50 50 mcg PO BID #60 tabs 10/02/23 mcg (2,000 unit) tablet (Vitamin D3) cyanocobalamin (vitamin B-12) 1,000 mcg PO DAILY #90 caps 10/02/23 1,000 mcg capsule docusate sodium 100 mg capsule 100 mg PO BEDTIME PRN for 10/02/23 constipation #90 caps gabapentin 300 mg capsule 300 mg PO BEDTIME 30 days #30 caps 10/02/23 ferrous sulfate 325 mg (65 mg 325 mg PO DAILY 90 days #90 tabs 10/05/23 iron) tablet nitrofurantoin 100 mg PO Q12H 7 days #14 caps 10/11/23 monohydrate/macrocrystals 100 mg capsule (Macrobid) cefuroxime axetil 250 mg tablet 250 mg PO BID 7 days #14 tabs 10/18/23 hydrocortisone acetate 25 mg 25 mg CO BID #12 ea 10/18/23 rectal suppository (Anusol-HC) Allergies Allergy/AdvReac Type Severity Reaction Status Date / Time Penicillins Allergy Intermediate RASH Verified 10/17/23 22:15 Review of Systems Review of Systems: Yes all other systems are reviewed and are negative [facility] Past Medical History Medical History Chest pressure Osteoporosis (~2007) Tubular adenoma of colon (~2019) Post-menopausal Left arm swelling Swelling of lymph node Cardiac pacemaker in situ (~2018) Sick sinus syndrome Overweight (BMI 25.0-29.9) Insomnia Degenerative joint disease Nocturnal leg cramps Dementia without behavioral disturbance GERD (gastroesophageal reflux disease) Constipation Vitamin D deficiency Neuropathy Vitamin B12 deficiency Epilepsy (~1998) Anemia Sinus bradycardia Pure hypercholesterolemia Diabetes mellitus Surgical History History of endoscopy History of ankle surgery (~2011) History of partial gastrectomy History of colonoscopy History of pacemaker (~2018) History of hysterectomy Family History Family History Father Medical history unknown Mother No problems noted. Daughter No problems noted. Son No problems noted. 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 Oriented X3. No acute distress. Eyes: No pallor or icterus ENT: Pharynx normal. Oral Mucosa moist Neck: Normal inspection. Neck supple. CVS: Normal heart rate and rhythm. Pulses normal. Respiratory: No respiratory distress. Equal air entry bilateral, Abdomen: Soft and nontender. Bowel sounds are present, no mass palpable, no CVA tenderness rectal: Internal hemorrhoids nonbleeding loose stool Skin: Skin warm and dry. Normal skin color. Normal skin turgor. Neuro: Oriented X 3. Const Other: Appearance: Alert. Oriented X3. No acute distress. ENT: Pharynx normal. Oral Mucosa moist Neck: Normal inspection. Neck supple. CVS: Normal heart rate and rhythm. Pulses normal. Respiratory: No respiratory distress. Equal air entry bilateral, Abdomen: Soft and nontender. Bowel sounds are present, no mass palpable, no CVA tenderness rectum: Nonbleeding internal hemorrhoids Skin: Skin warm and dry. Normal skin color. Normal skin turgor. Extremities: No lower extremity edema. No calf tenderness Neuro: Oriented X 3. Medical Decision Making Medical Decision Making [facility] Narrative: Patient with internal hemorrhoids nonbleeding at this time also has persistent UTI was treated with Macrobid for Klebsiella infection but still positive will start on Ceftin. Lab Data [facility] Lab Attestation statement: I reviewed the patient's lab results. 10/17/23 22:36 10/18/23 00:35 Labs: Lab Results 10/17/23 10/18/23 10/18/23 Range/Units 22:36 00:35 01:40 WBC 6.1 (4.8-10.8) X10*3/uL RBC 3.72 L (4.20-5.50) X10*6/uL Hgb 11.2 L (12.0-16.0) g/dl Hct 35.9 L (37.0-47.0) % MCV 96.5 (80.0-98.0) fL MCH 30.1 (27.0-33.0) pg MCHC 31.2 (31.0-35.0) g/dl RDW 13.7 (11.0-16.0) % Plt Count 171 (160-400) X10*3/uL MPV 11.5 (9.4-12.3) fL Immature Gran % (Auto) 0.3 (0.0-0.4) % Neut % (Auto) 55.3 (45-73) % Lymph % (Auto) 30.8 (20-40) % [place] % (Auto) 12.1 H (2-11) % Eos % (Auto) 1.0 (0-4) % Baso % (Auto) 0.5 (0-2) % Lymph # (Auto) 1.9 (1.2-4.9) X10*3/uL Bradford # (Auto) 0.7 (0.1-1.2) X10*3/uL Eos # (Auto) 0.1 (0.0-0.4) X10*3/uL Baso # (Auto) 0.0 (0.0-0.2) X10*3/uL Abs Immat Gran (auto) 0.02 (0.00-0.03) X10*3/uL Absolute Neuts (auto) 3.4 (2.0-8.3) x10*3/uL Absolute Nucleated RBC 0.000 (0.0-0.012) X10*3/uL Nucleated RBC % (auto) 0.0 (0.0-0.2) /100WBC Sodium 141 (135-145) mmol/L Potassium 3.8 (3.3-5.1) mmol/L Chloride 108 (96-108) mmol/L Carbon Dioxide 22 (22-29) mmol/L Anion Gap 15 (12-20) BUN 16 (9-16) mg/dL Creatinine 0.96 (0.5-1.4) mg/dL Estim Creat Clear Calc 32.4 Estimated GFR 56 Random Glucose 85 (60-115) mg/dL Calcium 9.1 (8.4-10.2) mg/dL Total Bilirubin 0.7 (0.0-1.0) mg/dL AST 24 (5-31) U/L ALT 17 (0-31) U/L Alkaline Phosphatase 71 (39-117) U/L Total Protein 7.4 (6.5-8.0) g/dL Albumin 4.3 (3.5-5.0) g/dL Urine Color Yellow Urine Appearance Clear Urine pH 5.5 (5.0-9.0) Ur Specific [place] 1.010 (1.005-1.025) Urine Protein Negative (Neg-Trace) mg/dL Urine Glucose (UA) Negative (Negative) mg/dL Urine Ketones 15 (Negative) mg/dL Urine Blood Negative (Negative) Urine Nitrite Negative (Negative) Ur Leukocyte Esterase Large (3+) H (Negative) Urine RBC 0-2 (0-2) /HPF Urine WBC 21-50 H (0-5) /HPF Ur Squamous Epith Cells 3-5 (0-2) /HPF Urine Bacteria 2+ (None Seen) Hyaline Casts 3-5 (0-2) /LPF Discharge Plan Discharge Clinical Impression: Hemorrhoid, Acute UTI Patient Disposition: Home, Self-Care Instructions: Hemorrhoids (ED), Urinary Tract Infection in Older Adults (ED) Additional Instructions: Drink plenty of fluid Antibiotic as prescribed for UTI Avoid constipation suppository for hemorrhoids Elba mucho l?quido Antibi?javon seg?n lo prescrito para la ITU Evitar el estre?imiento supositorio para hemorroides Prescriptions: New hydrocortisone acetate [Anusol-HC] 25 mg suppository 25 mg CO BID Qty: 12 0RF cefuroxime axetil 250 mg tablet 250 mg PO BID 7 Days Qty: 14 0RF No Action omeprazole 20 mg capsule,delayed release(DR/EC) 20 mg PO DAILY 90 Days Qty: 90 1RF atorvastatin 40 mg tablet 40 mg PO BEDTIME 90 Days Qty: 90 1RF metformin 500 mg tablet 500 mg PO BID 90 Days Qty: 180 3RF levetiracetam 750 mg tablet 750 mg PO BID 30 Days Qty: 60 3RF cholecalciferol (vitamin D3) [Vitamin D3] 50 mcg (2,000 unit) tablet 50 mcg PO BID Qty: 60 0RF cyanocobalamin (vitamin B-12) 1,000 mcg capsule 1,000 mcg PO DAILY Qty: 90 1RF docusate sodium 100 mg capsule 100 mg PO BEDTIME PRN (Reason: for constipation) Qty: 90 0RF gabapentin 300 mg capsule 300 mg PO BEDTIME 30 Days Qty: 30 3RF ferrous sulfate 325 mg (65 mg iron) tablet 325 mg PO DAILY 90 Days Qty: 90 1RF nitrofurantoin monohyd/m-cryst [Macrobid] 100 mg capsule 100 mg PO Q12H 7 Days Qty: 14 0RF Rx Instructions: must administer with a meal/food alendronate 70 mg tablet 70 mg PO QWEEK latanoprost 0.005 % drops 1 drp ophthalmic (eye) BEDTIME sennosides [senna] 8.6 mg tablet 17.2 mg PO BID PRN (Reason: Constipation) 90 Days Qty: 360 1RF bisacodyl [Dulcolax (bisacodyl)] 5 mg tablet,delayed release (DR/EC) 10 mg PO BEDTIME PRN (Reason: constipation) 30 Days Qty: 10 1RF Rx Instructions: to use if no bowel movement for 2-3 days Print Language: Citizen Of [place]
[2023-10-18 01:45] LABS: Appearance Urine Clear; Color Urine Yellow; Glucose Urine UA Negative (Negative); Leukocyte Esterase Urine Large (3+) (Negative); Nitrite Urine Negative (Negative); PH 5.5 (5.0-9.0); UMIC TRIGGER UACC YES; Urine Blood Negative (Negative); Urine Ketones 15 mg/dL (Negative); Urine Protein Negative (Neg-Trace)
[2023-10-18 01:52] LABS: Bacteria Urine 2+ (None Seen); RBC Urine 0-2 /HPF (0-2); UACC Culture Trigger YES; WBC Urine 21-50 /HPF (0-5)
[2023-10-18 02:54] VITALS: BP 118/56; PULSE 64; RESP 17; TEMP 36.4; O2SAT 100
[2023-10-18] MEDS: cefuroxime axetiL 250 MG TABLET PO (02:55)
== END 2023-10-18 03:00 | disposition home or self-care (01) ==
PROVIDERS: Emergency Provider Internal Medicine; PCP Internal Medicine
DX: N39.0 Urinary tract infection, site not specified (principal); K64.8 Other hemorrhoids; E11.9 Type 2 diabetes mellitus without complications
CPT/HCPCS: 36415; 80053; 81001; 85025; 87086; 87088; 87186; 99283

== ENCOUNTER → 2023-11-19 23:59 | Outpatient (BNV) | payer MEDICARE, SELFPAY ==
--- NOTE | 2023-11-20 15:00 | A.OFFVIS_ITS ---
Intake Intake Visit Reasons: Remote Device Check- Medtr[employer] Allergies Penicillins Allergy (Intermediate, Verified 10/19/23 13:41) [facility] Medical History Chest pressure Osteoporosis (~2007) Tubular adenoma of colon (~2019) Post-menopausal Left arm swelling Swelling of lymph node Cardiac pacemaker in situ (~2018) Sick sinus syndrome Overweight (BMI 25.0-29.9) Insomnia Degenerative joint disease Nocturnal leg cramps Dementia without behavioral disturbance GERD (gastroesophageal reflux disease) Constipation Vitamin D deficiency Neuropathy Vitamin B12 deficiency Epilepsy (~1998) Anemia Sinus bradycardia Pure hypercholesterolemia Diabetes mellitus Surgical History History of endoscopy History of ankle surgery (~2011) History of partial gastrectomy History of colonoscopy History of pacemaker (~2018) History of hysterectomy Family History Father Medical history unknown Mother No problems noted. Daughter No problems noted. Son No problems noted. Other Substance use disorder Social History Household Members: None Housing: House Are you a primary after school caregiver to a significant other at home: No Do you presently have visiting nurse or other home services: No Alcohol intake: never Patient Tobacco Use Status: Never used Tobacco Tobacco use type: Cigarette e-Cigarette/Vaping Use: Never Used Second Hand Smoke Exposure: No Use of substances other than those prescribed or required for medical reasons: No Have you been hit, kicked, punched, or otherwise hurt by someone within the past year? 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 Pacemaker function is adequate [id number] Cardiac Device Interrogation, pacemaker Procedure code (CPT) selection complete Assessment & Plan Assessment & Plan (1) Cardiac pacemaker in situ: Onset Date: ~2018 Comment: (Medtronic DCPP - placed 12/2018 - pocket revision 10/2021) Code(s): Z95.0 - Presence of cardiac pacemaker Plan: See above Coding Level of Care Code Procedure Only Diagnoses Cardiac pacemaker in situ Z95.0 CPT Codes Cardiac Device Check - Cardiac Device 12: [id number] Cardiac Device Interrogation, pacemaker ([id number])
== END ==
PROVIDERS: PCP Internal Medicine; Visit Provider Internal Medicine Cardiovascular Disease
DX: Z95.0 Presence of cardiac pacemaker (principal)
CPT/HCPCS: 93294

== ENCOUNTER 2023-12-28 11:44 | Outpatient (AMB) | payer MEDICARE, SELFPAY ==
--- NOTE | 2023-12-28 11:50 | A.OFFVIS_ITS ---
Vital Signs 12/28/23 11:56 Height 4 ft 8 in Weight 91 lb BMI 20.4 BP 136/64 Blood Pressure Location Lt brachial Position Sitting Pulse 80 Intake Visit Reasons: 6 month follow up Intake Note: Patient follow up for constipation. Patient cc: acid reflex with burning sensation on and off, chronic constipation with bloody hemorrhoids. Denies any other GI issues. 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 Accompanied by: Son Allergies Penicillins Allergy (Intermediate, Verified 12/28/23 11:51) RASH Medication List - Last Reconciled 12/28/23 by Lebron Milian MD alendronate 70 mg PO QWEEK atorvastatin 40 mg PO BEDTIME 90 days bisacodyl (Dulcolax (bisacodyl)) 10 mg (2 x 5 mg) PO BEDTIME PRN 30 days cefuroxime axetil 250 mg PO BID 7 days cholecalciferol (vitamin D3) (Vitamin D3) 50 mcg PO BID cyanocobalamin (vitamin B-12) 1,000 mcg PO DAILY docusate sodium 100 mg PO BEDTIME PRN ferrous sulfate 325 mg PO DAILY 90 days gabapentin 300 mg PO BEDTIME 30 days hydrocortisone acetate (Anusol-HC) 25 mg LA BID latanoprost 0.005% 1 drp ophthalmic (eye) BEDTIME levetiracetam 750 mg PO BID 30 days metformin 500 mg PO BID 90 days nitrofurantoin monohyd/m-cryst 100 mg (Macrobid) 100 mg PO Q12H 7 days omeprazole 20 mg PO DAILY 90 days sennosides (senna) 17.2 mg (2 x 8.6 mg) PO BID PRN 90 days HPI HPI 6 month follow up: Details: GI CLINIC VISIT FOR THIS 83-YEAR-OLD HONDURAN-SPEAKING FEMALE FOLLOWED IN GI FOR GERD, CONSTIPATION AND RECTAL PROLAPSE: ?LABS IN [facility]:?01/27/20 CBC SHOWED MILD ANEMIA WITH H&H OF 10.2 AND 31.6, PLATELET 262, NORMAL CHEM PANEL AND LFTS, VITAMIN B12 1558, FOLATE 16.3 ?IMAGING STUDIES: NO RECENT GI IMAGING ?ENDOSCOPIC STUDIES: 02/13/20 EGD AND COLONOSCOPY SHOWED: ? STOMACH: Bilroth 1 Gastric anatomy. A 10 mm white nodule in the gastric body - biopsied. Mild diffuse gastric erythema. Biopsies were obtained. Grade 2 flap valve on retroflexed examination of the cardia. ? DUODENUM: Normal biopsied for celiac sprue. ? Colonoscopy Findings: ? One small adenomatous polyp removed ? Moderate diverticulosis seen in the entire colon ? Small hemorrhoids on retroflexed exam. ? Plan: ? Patient has an appointment on 03/19/20 in the GI Clinic with Lebron Milian M.D.-. ? Repeat Colonoscopy interval based on path results - in 5 years if polyp is adenomatous and 10 years if polyps are hyperplastic. ?BIOPSIES SHOWED: ? A. Small bowel, biopsy: Small intestinal mucosa within normal limits. ? B. Stomach, biopsy: Antral-type and oxyntic mucosa with mild chronic inactive inflammation; no Helicobacter organisms seen. ? C. Stomach nodule: Gastric mucosa with mild chronic mucosal inflammation and foamy macrophages consistent with xanthoma; no Helicobacter organism seen. ? D. Colon, random, biopsy: Colonic mucosa within normal limits. ? E. Colon, sigmoid, polypectomy: Tubular adenoma; no high grade dysplasia or carcinoma seen. ?TODAY'S VISIT Pt is accompanied by her son who interpreted for the patient Patient cc: acid reflex with burning sensation on and off, chronic constipation with bloody hemorrhoids. Denies any other GI issues. Complains of constipation and feels something coming out of her rectum - ? rectal prolapse versus hemorrhoids Notes intermittent rectal bleeding consisting of BRB. Has a BM twice a day with straining Taking Senna 1 pill twice a day and dulcolx 1 pill twice a day. Continues to have constipation. Pt notes rectal prolapse when she strains to have a BM PAST VISITS: Has been taking the medications and having a BM twice a day. Takes 1 capsule of Senna and one capsule of colace twice a day with good results Stool are sometimes soft and sometimes hard. (twice She has to push sonetimes if she feels constipated Noted some diarrhea today Not taking iron due to constipation Complains of constipation - last BM was 3 days ago. Usually has a BM 3 times a week with passage of hard stools Constipation is not as bad as before Has a BM daily or every two days in the morning. BM are soft and she is able to go after pushing a little bit. Not eating very much - feels full fast. Not taking iron anymore. Followed by Dr Segura in Oncology and on procrit injections prn if HB is less than 10.5 No BM for the past 2 days. Had Senna, Miralax and dulcolax. Also takes prunes. Denies black stools or rectal bleeding. Pt feels some thing hard in the rectum and has rectal pain. Mild fever this am. Resumed taking iron due to worsening anemia. Taking iron every other day. ?? ? Continues to have intermittent constipation - has a BM 1-2 times a day. If she gets constipated, it may take her a week to have a BM - takes prunes and fruits which helps. Taking Alive a multivitamin with probiotics every other day ?? ? Can go 2 to 3 days without a BM. ?? ? Has hard stools with straining - afraid to get a hemorrhoid. Denies uterine or rectal prolapse. Chronic MEGAN (due to partial gastrectomy) and does not take oral iron due to worsening constipation Offered IV iron and patient refused [facility] Medical History (Updated 12/28/23 @ 12:20 by Lebron Milian MD) Chest pressure Osteoporosis (~2007) Tubular adenoma of colon (~2019) Post-menopausal Left arm swelling Swelling of lymph node Cardiac pacemaker in situ (~2018) Sick sinus syndrome Overweight (BMI 25.0-29.9) Insomnia Degenerative joint disease Nocturnal leg cramps Dementia without behavioral disturbance GERD (gastroesophageal reflux disease) Constipation Vitamin D deficiency Neuropathy Vitamin B12 deficiency Epilepsy (~1998) Anemia Sinus bradycardia Pure hypercholesterolemia Diabetes mellitus Surgical History History of endoscopy History of ankle surgery (~2011) History of partial gastrectomy History of colonoscopy History of pacemaker (~2018) History of hysterectomy Family History Father Medical history unknown Mother No problems noted. Daughter No problems noted. Son No problems noted. 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 Cognitive needs: No Hearing needs: No Vision needs: Yes Review of Systems Const All systems reviewed & are unremarkable except as noted in HPI and below Physical Exam Vital Signs: Last Vital Signs Pulse 80 12/28/23 11:56 BP 136/64 12/28/23 11:56 BMI result Body Mass Index 20.4 Const General: no acute distress and other (frail appearing) Nutritional Appearance: underweight Orientation/consciousness: patient oriented x3 Limitations: language barrier and physical limitations (needs assistance with walking and refuses to use a cane) HEENT Head: Yes normal to inspection Ears: hearing grossly normal bilaterally Eyes Sclerae: sclerae normal Pupils: Equal, round and reactive pupils present Neck Neck: Yes normal visual inspection Chest Chest palpation & inspection: normal inspection of the chest Resp Effort & Inspection: normal respiratory effort Auscultation: clear to auscultation bilaterally Cardio Palpation: normal PMI Rate: regular rate Rhythm: regular rhythm Heart sounds: S1 normal heart sound present, S2 normal heart sound present and no murmurs GI Palpation (GI): Soft to palpation, nontender and No hepatosplenomegaly present Auscultation: normal bowel sounds Rectal Exam - Female: visual inspection normal, normal sphincter tone and other (No external hemorrhoids or rectal prolapse noted) Skin General skin exam: no rashes or lesions noted Neuro General: patient oriented x3, gait normal and moves all extremities Cranial nerves: Yes Equal, round and reactive pupils present Psych Appearance: grossly normal Mental Status: mental status grossly normal Assessment & Plan Assessment & Plan (1) Vitamin B12 deficiency: Comment: (related to partial gastrectomy for PUD) Code(s): E53.8 - Deficiency of other specified B group vitamins Category: Medical (2) Constipation: Code(s): K59.00 - Constipation, unspecified Category: Medical Qualifiers: Constipation type: unspecified constipation type Qualified Code(s): K59 .00 - Constipation, unspecified (3) GERD (gastroesophageal reflux disease): Code(s): K21.9 - Gastro-esophageal reflux disease without esophagitis Category: Medical Qualifiers: Esophagitis presence: without esophagitis Qualified Code(s): K21.9 - Gastro-esophageal reflux disease without esophagitis (4) Iron deficiency anemia: Comment: Likely due to partial gastrectomy Code(s): D50.9 - Iron deficiency anemia, unspecified Category: Medical (5) Hemorrhoids, internal, with bleeding: Code(s): K64.8 - Other hemorrhoids Category: Medical Plan 83 year old french speaking female followed in GI for GERD, chronic constipation, iron deficiency any, fecal incontinence and suspected rectal prolapse. 02/13/20 EGD and Colonoscopy showed: Bilroth 1 Gastric anatomy. 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 Mild diffuse gastric erythema. Biopsies were negative for H pylori.? Duodenal biopsies were negative for celiac sprue 02/13/20 colonoscopy showed Diverticulosis and one small adenomatous polyp removed. Repeat colonoscopy is advised in 5 years (if pt remains in stable health)? - action set in [facility]. Pt has not been taking Miralax on a regular basis and resumed taking it when she felt worsening constipation. Pt was advised to take a rectal suppository and if no results to take a fleet enema. Advised to go to the ER for large volume tap water enema if she is unable to have a BM. She is to resume taking Miralax 1-2 times daily. Patient was offered referral to physical therapy for the pelvic floor which she declined. If patient continues to have constipation on FU, she will be prescribed Amitiza or Linzess. 10/13/22 Pt advised to resume taking iron every other day due to worsening MEGAN. To take a can of Glucerna once a day (pt takes one meal a day and takes coffee, fruit and snacks the rest of the day 03/02/23 Pt was advised to increase Senna to 1 tab twice daily and (then to 2 tab twice daily if no improvement in constipation) and take a stool softener at bedtime p.r.n. 07/06/23 Pt advised to increase senna and docusate to 2 capsules twice a day if she is unable to have a bowel movement 1-2 days. If no results to take 2 capsules of Dulcolax p.r.n. Pt is scheduled to see Dr Segura in 3 months with repeat labs to FU on anemia 12/28/23 Taking Senna 1 pill twice a day and dulcolx 1 pill twice a day. Continues to have constipation. Pt advised to use HC cream for hemorrhoids and start Linzess 72 mcg daily for constipation Follow-up appointment in 4 weeks to FU on MEGAN and?constipation Medications: New hydrocortisone 2.5% 1 appl LA BID-QID 15 days PRN 30 grams 2RF hemorrhoids K64.8 - Other hemorrhoids linaclotide (Linzess) 72 mcg PO QAM 30 days 30 caps 2RF K59.00 - Constipation, unspecified Coding Level of Care Code Est Pt Level 4 (09133) Diagnoses Vitamin B12 deficiency E53.8 Constipation, unspecified constipation type K59.00 Constipation type: unspecified constipation type Gastroesophageal reflux disease without esophagitis K21.9 Esophagitis presence: without esophagitis Iron deficiency anemia D50.9 Hemorrhoids, internal, with bleeding K64.8 Time Spent (min) 24
[2023-12-28 11:56] VITALS: BP 136/64; PULSE 80; BMI 20.4
== END 2023-12-28 12:32 | disposition home or self-care (01) ==
PROVIDERS: PCP Internal Medicine; Visit Provider Internal Medicine Gastroenterology
DX: E53.8 Deficiency of other specified B group vitamins (principal); K59.00 Constipation, unspecified; K21.9 Gastro-esophageal reflux disease without esophagitis; D50.9 Iron deficiency anemia, unspecified; K64.8 Other hemorrhoids
CPT/HCPCS: 99214

== ENCOUNTER → 2023-12-28 11:44 | Outpatient (BNVA) | payer MEDICARE, SELFPAY | PROVIDERS: PCP Internal Medicine; Visit Provider Internal Medicine Gastroenterology | DX: K59.00 Constipation, unspecified (principal); K64.8 Other hemorrhoids; D50.9 Iron deficiency anemia, unspecified; K21.9 Gastro-esophageal reflux disease without esophagitis; E53.8 Deficiency of other specified B group vitamins | CPT/HCPCS: 99212 ==

== ENCOUNTER 2024-02-08 13:21 | Outpatient (AMB) | payer MEDICARE, SELFPAY ==
[2024-02-08 13:29] VITALS: BP 117/57; PULSE 63; BMI 19.7
--- NOTE | 2024-02-08 13:29 | MHC.OFFVIS ---
Vital Signs 02/08/24 13:29 Height 4 ft 8 in Weight 87 lb 11.904 oz BMI 19.7 BP 117/57 L Blood Pressure Location Rt brachial Position Sitting Pulse 63 Intake Visit Reasons: 4 week follow up Intake Note: Natividad presents to in office visit today in follow up of constipation. CC: Patient c/o constipation and numbness from bilateral feet. Per patient's son they could not start the Linzess do to high copay cost ($300). Denies other GI concerns today Allergies Penicillins Allergy (Intermediate, Verified 05/20/24 11:07) RASH Medication List - Last Reconciled 02/08/24 by Lebron Milian MD alendronate 70 mg PO QWEEK atorvastatin 40 mg PO BEDTIME 90 days bisacodyl (Dulcolax (bisacodyl)) 10 mg (2 x 5 mg) PO BEDTIME PRN 30 days cholecalciferol (vitamin D3) (Vitamin D3) 50 mcg PO BID cyanocobalamin (vitamin B-12) 1,000 mcg PO DAILY docusate sodium 100 mg PO BEDTIME PRN ferrous sulfate 325 mg PO DAILY 90 days gabapentin 300 mg PO BEDTIME 30 days hydrocortisone 2.5% 1 appl [place] BID-QID PRN 15 days latanoprost 0.005% 1 drp ophthalmic (eye) BEDTIME levetiracetam 750 mg PO BID 30 days metformin 500 mg PO BID 90 days omeprazole 20 mg PO DAILY 90 days sennosides (senna) 17.2 mg (2 x 8.6 mg) PO BID PRN 90 days HPI HPI 4 week follow up: Details: GI CLINIC VISIT FOR THIS 83-YEAR-OLD CHINESE-SPEAKING FEMALE FOLLOWED IN GI FOR GERD, CONSTIPATION AND RECTAL PROLAPSE: ?LABS IN [facility]:?01/27/20 CBC SHOWED MILD ANEMIA WITH H&H OF 10.2 AND 31.6, PLATELET 262, NORMAL CHEM PANEL AND LFTS, VITAMIN B12 1558, FOLATE 16.3 ?IMAGING STUDIES: NO RECENT GI IMAGING ?ENDOSCOPIC STUDIES: 02/13/20 EGD AND COLONOSCOPY SHOWED: ? STOMACH: Bilroth 1 Gastric anatomy. A 10 mm white nodule in the gastric body - biopsied. Mild diffuse gastric erythema. Biopsies were obtained. Grade 2 flap valve on retroflexed examination of the cardia. ? DUODENUM: Normal biopsied for celiac sprue. ? Colonoscopy Findings: ? One small adenomatous polyp removed ? Moderate diverticulosis seen in the entire colon ? Small hemorrhoids on retroflexed exam. ? Plan: ? Patient has an appointment on 03/19/20 in the GI Clinic with Lebron Milian M.D.-. ? Repeat Colonoscopy interval based on path results - in 5 years if polyp is adenomatous and 10 years if polyps are hyperplastic. ?BIOPSIES SHOWED: ? A. Small bowel, biopsy: Small intestinal mucosa within normal limits. ? B. Stomach, biopsy: Antral-type and oxyntic mucosa with mild chronic inactive inflammation; no Helicobacter organisms seen. ? C. Stomach nodule: Gastric mucosa with mild chronic mucosal inflammation and foamy macrophages consistent with xanthoma; no Helicobacter organism seen. ? D. Colon, random, biopsy: Colonic mucosa within normal limits. ? E. Colon, sigmoid, polypectomy: Tubular adenoma; no high grade dysplasia or carcinoma seen. ?TODAY'S VISIT Pt is accompanied by her son who interpreted for the patient Natividad presents to in office visit today in follow up of constipation. CC: Patient c/o constipation and numbness from bilateral feet. Per patient's son they could not start the Linzess do to high copay cost ($300). Continues to have intermittent constipation PAST VISITS: Denies other GI concerns today Patient cc: acid reflex with burning sensation on and off, chronic constipation with bloody hemorrhoids. Denies any other GI issues. Complains of constipation and feels something coming out of her rectum - ? rectal prolapse versus hemorrhoids Notes intermittent rectal bleeding consisting of BRB. Has a BM twice a day with straining Taking Senna 1 pill twice a day and dulcolx 1 pill twice a day. Continues to have constipation. Pt notes rectal prolapse when she strains to have a BM Has been taking the medications and having a BM twice a day. Takes 1 capsule of Senna and one capsule of colace twice a day with good results Stool are sometimes soft and sometimes hard. (twice She has to push sonetimes if she feels constipated Noted some diarrhea today Not taking iron due to constipation Complains of constipation - last BM was 3 days ago. Usually has a BM 3 times a week with passage of hard stools Constipation is not as bad as before Has a BM daily or every two days in the morning. BM are soft and she is able to go after pushing a little bit. Not eating very much - feels full fast. Not taking iron anymore. Followed by Dr Segura in Oncology and on procrit injections prn if HB is less than 10.5 No BM for the past 2 days. Had Senna, Miralax and dulcolax. Also takes prunes. Denies black stools or rectal bleeding. Pt feels some thing hard in the rectum and has rectal pain. Mild fever this am. Resumed taking iron due to worsening anemia. Taking iron every other day. ?? ? Continues to have intermittent constipation - has a BM 1-2 times a day. If she gets constipated, it may take her a week to have a BM - takes prunes and fruits which helps. Taking Alive a multivitamin with probiotics every other day ?? ? Can go 2 to 3 days without a BM. ?? ? Has hard stools with straining - afraid to get a hemorrhoid. Denies uterine or rectal prolapse. Chronic MEGAN (due to partial gastrectomy) and does not take oral iron due to worsening constipation Offered IV iron and patient refused [facility] Medical History Chest pressure Osteoporosis (~2007) Tubular adenoma of colon (~2019) Post-menopausal Left arm swelling Swelling of lymph node Cardiac pacemaker in situ (~2018) Sick sinus syndrome Overweight (BMI 25.0-29.9) Insomnia Degenerative joint disease Nocturnal leg cramps Dementia without behavioral disturbance GERD (gastroesophageal reflux disease) Constipation Vitamin D deficiency Neuropathy Vitamin B12 deficiency Epilepsy (~1998) Anemia Sinus bradycardia Pure hypercholesterolemia Diabetes mellitus Surgical History History of endoscopy History of ankle surgery (~2011) History of partial gastrectomy History of colonoscopy History of pacemaker (~2018) History of hysterectomy Family History Father Medical history unknown Mother No problems noted. Daughter No problems noted. Son No problems noted. 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 [employer] Cognitive needs: No Hearing needs: No Vision needs: Yes Review of Systems Const All systems reviewed & are unremarkable except as noted in HPI and below Physical Exam Vital Signs: Last Vital Signs Pulse 63 02/08/24 13:29 BP 117/57 L 02/08/24 13:29 BMI result Body Mass Index 19.7 Const General: healthy appearing and no acute distress Nutritional Appearance: underweight Orientation/consciousness: patient oriented x3 Limitations: language barrier HEENT Head: Yes normal to inspection Ears: hearing grossly normal bilaterally Eyes Sclerae: sclerae normal Pupils: Equal, round and reactive pupils present Neck Neck: Yes normal visual inspection Chest Chest palpation & inspection: normal inspection of the chest Resp Effort & Inspection: normal respiratory effort Auscultation: clear to auscultation bilaterally Cardio Palpation: normal PMI Rate: regular rate Rhythm: regular rhythm Heart sounds: S1 normal heart sound present, S2 normal heart sound present and no murmurs GI Palpation (GI): Soft to palpation, nontender and No hepatosplenomegaly present Auscultation: normal bowel sounds Rectal Exam - Female: deferred Skin General skin exam: no rashes or lesions noted Neuro General: patient oriented x3, gait normal and moves all extremities Cranial nerves: Yes Equal, round and reactive pupils present Psych Appearance: grossly normal Mental Status: mental status grossly normal Assessment & Plan Assessment & Plan (1) Vitamin B12 deficiency: Comment: (related to partial gastrectomy for PUD) Code(s): E53.8 - Deficiency of other specified B group vitamins Category: Medical (2) Vitamin D deficiency: Code(s): E55.9 - Vitamin D deficiency, unspecified Category: Medical (3) Constipation: Code(s): K59.00 - Constipation, unspecified Category: Medical Qualifiers: Constipation type: unspecified constipation type Qualified Code(s): K59.00 - Constipation, unspecified (4) GERD (gastroesophageal reflux disease): Code(s): K21.9 - Gastro-esophageal reflux disease without esophagitis Category: Medical Qualifiers: Esophagitis presence: without esophagitis Qualified Code(s): K21.9 - Gastro-esophageal reflux disease without esophagitis (5) Iron deficiency anemia: Comment: Likely due to partial gastrectomy Code(s): D50.9 - Iron deficiency anemia, unspecified Category: Medical (6) Hemorrhoids, internal, with bleeding: Code(s): K64.8 - Other hemorrhoids Category: Medical Plan 83 year old luxembourgish speaking female followed in GI for GERD, chronic constipation, iron deficiency any, fecal incontinence and suspected rectal prolapse. 02/13/20 EGD and Colonoscopy showed: Bilroth 1 Gastric anatomy. 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 Mild diffuse gastric erythema. Biopsies were negative for H pylori.? Duodenal biopsies were negative for celiac sprue 02/13/20 colonoscopy showed Diverticulosis and one small adenomatous polyp removed. Repeat colonoscopy is advised in 5 years (if pt remains in stable health)? - action set in [facility]. Pt has not been taking Miralax on a regular basis and resumed taking it when she felt worsening constipation. Pt was advised to take a rectal suppository and if no results to take a fleet enema. Advised to go to the ER for large volume tap water enema if she is unable to have a BM. She is to resume taking Miralax 1-2 times daily. Patient was offered referral to physical therapy for the pelvic floor which she declined. If patient continues to have constipation on FU, she will be prescribed Amitiza or Linzess. 10/13/22 Pt advised to resume taking iron every other day due to worsening MEGAN. To take a can of Glucerna once a day (pt takes one meal a day and takes coffee, fruit and snacks the rest of the day 03/02/23 Pt was advised to increase Senna to 1 tab twice daily and (then to 2 tab twice daily if no improvement in constipation) and take a stool softener at bedtime p.r.n. 07/06/23 Pt advised to increase senna and docusate to 2 capsules twice a day if she is unable to have a bowel movement 1-2 days. If no results to take 2 capsules of Dulcolax p.r.n. Pt is scheduled to see Dr Segura in 3 months with repeat labs to FU on anemia 12/28/23 Taking Senna 1 pill twice a day and dulcolx 1 pill twice a day. Continues to have constipation. Pt advised to use HC cream for hemorrhoids and start Linzess 72 mcg daily for constipation 02/08/24 Pt prescribed Amitiza 8 mcg twice daily (due to high copay for Linzess) Follow-up appointment in 4 months to FU on MEGAN, gerd and?constipation Medications: New lubiprostone (Amitiza) 8 mcg PO BID 60 caps 3RF 30 days K59.09 - Other constipation Refilled omeprazole 20 mg PO DAILY 90 caps 1RF 90 days K21.9 - Gastro-esophageal reflux disease without esophagitis Coding Level of Care Code Est Pt Level 3 (12512) Diagnoses Vitamin B12 deficiency E53.8 Vitamin D deficiency E55.9 Constipation, unspecified constipation type K59.00 Constipation type: unspecified constipation type Gastroesophageal reflux disease without esophagitis K21.9 Esophagitis presence: without esophagitis Iron deficiency anemia D50.9 Hemorrhoids, internal, with bleeding K64.8 Time Spent (min) 19
== END 2024-02-08 14:34 | disposition home or self-care (01) ==
PROVIDERS: PCP Internal Medicine; Visit Provider Internal Medicine Gastroenterology
DX: E53.8 Deficiency of other specified B group vitamins (principal); E55.9 Vitamin D deficiency, unspecified; K59.00 Constipation, unspecified; K21.9 Gastro-esophageal reflux disease without esophagitis; D50.9 Iron deficiency anemia, unspecified; K64.8 Other hemorrhoids
CPT/HCPCS: 99213

== ENCOUNTER → 2024-02-08 13:21 | Outpatient (BNVA) | payer MEDICARE, SELFPAY | PROVIDERS: PCP Internal Medicine; Visit Provider Internal Medicine Gastroenterology | DX: K21.9 Gastro-esophageal reflux disease without esophagitis (principal); K59.00 Constipation, unspecified; K64.8 Other hemorrhoids; D50.9 Iron deficiency anemia, unspecified; E53.8 Deficiency of other specified B group vitamins; E55.9 Vitamin D deficiency, unspecified | CPT/HCPCS: 99212 ==

== ENCOUNTER → 2024-02-19 23:59 | Outpatient (BNV) | payer MEDICARE, SELFPAY ==
--- NOTE | 2024-02-21 12:59 | MHC.OFFVIS ---
Intake Visit Reasons: Remote Device Check- [employer] Allergies Penicillins Allergy (Intermediate, Verified 02/08/24 13:39) RASH PFSH Medical History Chest pressure Osteoporosis (~2007) Tubular adenoma of colon (~2019) Post-menopausal Left arm swelling Swelling of lymph node Cardiac pacemaker in situ (~2018) Sick sinus syndrome Overweight (BMI 25.0-29.9) Insomnia Degenerative joint disease Nocturnal leg cramps Dementia without behavioral disturbance GERD (gastroesophageal reflux disease) Constipation Vitamin D deficiency Neuropathy Vitamin B12 deficiency Epilepsy (~1998) Anemia Sinus bradycardia Pure hypercholesterolemia Diabetes mellitus Surgical History History of endoscopy History of ankle surgery (~2011) History of partial gastrectomy History of colonoscopy History of pacemaker (~2018) History of hysterectomy Family History Father Medical history unknown Mother No problems noted. Daughter No problems noted. Son No problems noted. 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 Pacemaker function is adequate [id number] Cardiac Device Interrogation, pacemaker Procedure code (CPT) selection complete Assessment & Plan Assessment & Plan (1) Cardiac pacemaker in situ: Onset Date: ~2018 Comment: ([employer]tronic DCPP - placed 12/2018 - pocket revision 10/2021) Code(s): Z95.0 - Presence of cardiac pacemaker Category: Medical Plan: See above Coding Level of Care Code Procedure Only Diagnoses Cardiac pacemaker in situ Z95.0 CPT Codes Cardiac Device Check - Cardiac Device 12: [id number] Cardiac Device Interrogation, pacemaker ([id number])
== END ==
PROVIDERS: PCP Internal Medicine; Visit Provider Internal Medicine Cardiovascular Disease
DX: Z45.018 Encounter for adjustment and management of other part of cardiac pacemaker (principal)
CPT/HCPCS: 93294

== ENCOUNTER 2024-02-23 16:49 | Outpatient (AMB) | payer MEDICARE, SELFPAY ==
--- NOTE | 2024-02-23 16:55 | A.OFFPC_ITS ---
Vital Signs 02/23/24 16:57 Height 4 ft 8 in Weight 92 lb BMI 20.6 BP 112/64 Blood Pressure Location Lt brachial Position Sitting Pulse 65 Pulse Source Pulse Oximeter Pulse Oximetry (%) 96 Oxygen Delivery Method Room Air Intake Visit Reasons: [facility] f/u Policy Writer Required: No Accompanied by: Son Allergies Penicillins Allergy (Intermediate, Verified 02/23/24 17:22) RASH Medication List - Last Reconciled 02/23/24 by Cuate Oscar MD alendronate 70 mg PO QWEEK atorvastatin 40 mg PO BEDTIME 90 days bisacodyl (Dulcolax (bisacodyl)) 10 mg (2 x 5 mg) PO BEDTIME PRN 30 days cholecalciferol (vitamin D3) (Vitamin D3) 50 mcg PO BID cyanocobalamin (vitamin B-12) 1,000 mcg PO DAILY docusate sodium 100 mg PO BEDTIME PRN ferrous sulfate 325 mg PO DAILY 90 days gabapentin 300 mg PO BEDTIME 30 days hydrocortisone 2.5% 1 appl CO BID-QID PRN 15 days latanoprost 0.005% 1 drp ophthalmic (eye) BEDTIME levetiracetam 750 mg PO BID 30 days lubiprostone (Amitiza) 8 mcg PO BID 30 days metformin 500 mg PO BID 90 days omeprazole 20 mg PO DAILY 90 days sennosides (senna) 17.2 mg (2 x 8.6 mg) PO BID PRN 90 days Tobacco use date assessed: 09/15/23 Fall risk assessment: No Falls in past year Last assessed Fall Risk: 02/23/24 Dental Screening Dental Screen Date: 09/15/[address] f/u HPI Details Patient comes in today for her follow up visit States that she feels okay She denies any headaches or dizziness Denies any chest pains, no increased SOB No nausea/vomiting, no abdominal pain No change in bowel habits noted Needs a few of her Rx refilled She reportedly had some labs done last month but these were mostly from Dr. Segura and did not include a fasting lipid profile or HgbA1c [facility] Medical History Chest pressure Osteoporosis (~2007) Tubular adenoma of colon (~2019) Post-menopausal Left arm swelling Swelling of lymph node Cardiac pacemaker in situ (~2018) Sick sinus syndrome Overweight (BMI 25.0-29.9) Insomnia Degenerative joint disease Nocturnal leg cramps Dementia without behavioral disturbance GERD (gastroesophageal reflux disease) Constipation Vitamin D deficiency Neuropathy Vitamin B12 deficiency Epilepsy (~1998) Anemia Sinus bradycardia Pure hypercholesterolemia Diabetes mellitus Surgical History History of endoscopy History of ankle surgery (~2011) History of partial gastrectomy History of colonoscopy History of pacemaker (~2018) History of hysterectomy Family History Father Medical history unknown Mother No problems noted. Daughter No problems noted. Son No problems noted. 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 Yash Harris, Noemi Kaur, Alexander Parnell and colleagues, with an educational brittany from [employer]. Review of Systems Const Denies chills, Reports fatigue, Denies fever(s) and Denies headache(s) ENT Denies dysphagia, Denies dizziness, Denies otalgia, Denies headache(s), Denies neck pain, Denies odynophagia and Denies sore throat Card Denies chest pain, Denies palpitations and Denies dyspnea Resp Denies cough, Denies dyspnea and Denies wheezing GI Denies abdominal pain, Reports constipation, Denies dysphagia, Denies heartburn, Denies diarrhea, Denies nausea, Denies odynophagia and Denies vomiting Denies difficulty voiding, Denies nocturia, Denies dysuria and Denies urinary urgency Musc Denies neck pain Skin/Breast Denies rash Neuro Denies dizziness, Denies headache(s) and Reports radicular pain (improved on Gabapentin) Endo Reports fatigue and Denies palpitations Aller/Immun Denies wheezing Physical exam (Primary Care) Vital Signs: Last Vital Signs Pulse 65 02/23/24 16:57 BP 112/64 02/23/24 16:57 Pulse Ox 96 02/23/24 16:57 Oxygen Delivery Method Room Air 02/23/24 16:57 BMI result Body Mass Index 20.6 Tobacco/Smoking Status: Tobacco use Status Tobacco use date assessed 09/15/23 02/23/24 16:57 Patient Tobacco Use Status Never used Tobacco 02/23/24 16:57 Tobacco use type Cigarette 02/23/24 16:57 e-Cigarette/Vaping Use Never Used 02/23/24 16:57 Thrive Assessment: Date of Thrive Assessment Date Thrive assessed 09/15/23 02/23/24 16:57 Const General: no acute distress and alert HENMT Ears: TM's normal bilaterally and EAC's normal Throat: Yes posterior oropharynx normal and Yes tonsils normal (no TP congestion) Neck Neck: Yes no lymphadenopathy and Yes supple Thyroid: Thyroid normal Resp Auscultation: clear to auscultation bilaterally, no rales and no wheezes Cardio Rate: regular rate Rhythm: regular rhythm Heart sounds: no murmurs GI Palpation (GI): Soft to palpation and nontender Auscultation: normal bowel sounds General: Yes no CVA tenderness Back/Spine/Pelvis Back: no CVA tenderness Thoracic/Lumbar Spine: No lumbar spinal tenderness Skin Rashes: no rashes Extrem General: Yes no clubbing, cyanosis or edema Left upper extremity: shoulder/upper arm Details: tenderness Location: of the A- C joint; no swelling Right lower extremity: normal to inspection Left lower extremity: normal to inspection Results AMB Hemoglobin A1c AMB Hemoglobin A1c 6.6 % Last Edit by MOHAN Sheriff on 02/23/24 17:24 Results Reviewed Results Reviewed: Laboratory Last Values Hgb A1c (Clinic) 6.6 % (4.0-6.0) H 02/23/24 17:24 Laboratory Tests 01/30/24 11:35 WBC 3.8 L Hgb 11.9 L Hct 34.3 L Plt Count 160 Sodium 140 Potassium 4.2 Creatinine 0.82 Estimated GFR > 60 Random Glucose 93 Calcium 9.3 D AST 50 H ALT 46 H Assessment and Plan Assessment & Plan (1) Pure hypercholesterolemia: Code(s): E78.00 - Pure hypercholesterolemia, unspecified Plan: Results of her labs done last month reviewed and discussed with patient and her son although these were from Dr. Segura and were non-fasting so there were no fasting lipids included Reinforced low cholesterol diet Continue Atorvastatin 40 mg QD Will recheck her labs and fasting lipids in 4 months for follow-up (2) Diabetes mellitus: Code(s): E11.9 - Type 2 diabetes mellitus without complications Qualifiers: Diabetes mellitus complication detail: with unspecified neuropathy Diabetes mellitus complication status: with neurologic complications Diabetes mellitus retirement insulin use: without termite control servicer use Diabetes mellitus type: type 2 Qualified Code(s): E11.40 - Type 2 diabetes mellitus with diabetic neuropathy, unspecified Plan: Her in-office HgbA1c done today is at 6.6% (HgbA1c was at 6.5% a few months ago) - goal is at least <7.0% Reinforced diabetic diet Continue Metformin 500 mg BID (3) Sinus bradycardia: Comment: (s/p [employer] DCPP placed 2019) Code(s): R00.1 - Bradycardia, unspecified Plan: Due to sick sinus syndrome - S/P dual-chamber permanent pacemaker insertion in 2019 with no recurrence of symptoms since although patient has been complaining recently of occasional sharp pains from her device at night lately Follow up with cardiology as scheduled (4) Anemia: Code(s): D64.9 - Anemia, unspecified Qualifiers: Anemia type: unspecified type Qualified Code(s): D64.9 - Anemia, unspecified Plan: Her H/H have improved recently - H/H is at 11.9/ 34.3 last month S/P IV iron infusion x 1 back in April 2022 and she apparently has not needed any more infusions afterwards She was recommended by hematology to continue on Procrit but only if her Hgb drops below 10 .5 Follow up with hematology as scheduled Will continue to monitor her CBC regularly (5) Epilepsy: Onset Date: ~1998 Comment: Complex partial seizure Code(s): G40.909 - Epilepsy, unspecified, not intractable, without status epilepticus Qualifiers: Epilepsy type: unspecified Intractability: not intractable Status epilepticus: without status epilepticus Qualified Code(s): G40.909 - Epilepsy, unspecified, not intractable, without status epilepticus Plan: Complex partial seizure with no recurrence Continue Levetiracetam 750 mg BID Follow-up with Neurology as scheduled (6) Vitamin B12 deficiency: Comment: (related to partial gastrectomy for PUD) Code(s): E53.8 - Deficiency of other specified B group vitamins Plan: Continue Vitamin B12 tablets 1000 mcg QD (7) Neuropathy: Code(s): G62.9 - Polyneuropathy, unspecified Plan: EMG and NCV done back in April 2018 showed findings consistent with peripheral neuropathy Repeat NCV & EMG done in February 2023 showed (+) 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 and findings that are consistent with minimal chronic neuropathic changes in the EDB muscle States that her symptoms have improved a lot on Gabapentin, which she currently takes at 300 mg Q HS (8) Nocturnal leg cramps: Code(s): G47.62 - Sleep related leg cramps Plan: Continue Ropinirole 0.25 mg Q HS and Tizanidine 2 mg Q HS PRN for her leg cramps (9) Vitamin D deficiency: Code(s): E55.9 - Vitamin D deficiency, unspecified Plan: Continue Vitamin-D3 2000 units QD (10) Constipation: Code(s): K59.00 - Constipation, unspecified Qualifiers: Constipation type: unspecified constipation type Qualified Code(s): K59.00 - Constipation, unspecified Plan: Encouraged increased oral fluids and dietary fiber Continue MiraLax 17 g daily and Colace 100 mg 1 to 2 times a day as needed She was seen by GI (Dr. Milian) recently and was started on Amitiza 8 mcg BID - follow up with GI as scheduled (11) GERD (gastroesophageal reflux disease): Code(s): K21.9 - Gastro-esophageal reflux disease without esophagitis Qualifiers: Esophagitis presence: without esophagitis Qualified Code(s): K21.9 - Gastro-esophageal reflux disease without esophagitis Plan: Dietary restrictions reinforced Continue Omeprazole 20 mg QD (12) Dementia without behavioral disturbance: Code(s): F03.90 - Unspecified dementia, unspecified severity, without behavioral disturbance, psychotic disturbance, mood disturbance, and anxiety Plan: Patient's dementia appears stable, per family Follow up with Neurology as scheduled (13) Degenerative joint disease: Code(s): M19.90 - Unspecified osteoarthritis, unspecified site Qualifiers: Osteoarthritis location: unspecified site Osteoarthritis type: unspecified Qualified Code(s): M19.90 - Unspecified osteoarthritis, unspecified site Plan: S/P? medial and lateral malleolar fractures of the left ankle in? 2011 -? symptoms have been mostly manageable (14) Glaucoma: Code(s): H40.9 - Unspecified glaucoma Qualifiers: Glaucoma type: unspecified Laterality: unspecified laterality Qualified Code(s): H40.9 - Unspecified glaucoma Plan: Continue Brimonidine eyedrops 0.1% BID Follow up with ophthalmology as scheduled (15) Insomnia: Code(s): G47.00 - Insomnia, unspecified Qualifiers: Insomnia type: unspecified Qualified Code(s): G47.00 - Insomnia, unspecified Plan: Sleep hygiene reinforced Continue Melatonin 5 mg once a day at bedtime as needed Plan Follow up in 4 months Orders: Orders Complete Blood Count Auto Diff 4 Months D64.9 - Anemia, unspecified Lipid Panel 4 Months E78.00 - Pure hypercholesterolemia, unspecified UA CC w/rflx Micro + Cult 4 Months R30.0 - Dysuria Microalbumin, Random (w Creat) 4 Months E11.9 - Type 2 diabetes mellitus without complications Vitamin D 25-OH Total 4 Months E55.9 - Vitamin D deficiency, unspecified AMB Hemoglobin A1c Today E11.40 - Type 2 diabetes mellitus with diabetic neur opathy, unspecified Comprehensive [place]. Panel Fast 4 Months E78.00 - Pure hypercholesterolemia, unspecified TSH reflex Free T4 4 Months E78.00 - Pure hypercholesterolemia, unspecified Hemoglobin A1c 4 Months E11.9 - Type 2 diabetes mellitus without complications Vitamin B12 and Folate 4 Months E53.8 - Deficiency of other specified B group vitamins Medications: Refilled metformin 500 mg PO BID 90 days 180 tabs 3RF E11.40 - Type 2 diabetes mellitus with diabetic neuropathy, unspecified cholecalciferol (vitamin D3) (Vitamin D3) 50 mcg PO BID 60 tabs 0RF cyanocobalamin (vitamin B-12) 1,000 mcg PO DAILY 90 caps 1RF omeprazole 20 mg PO DAILY 90 days 90 caps 1RF K21.9 - Gastro-esophageal reflux disease without esophagitis Coding Level of Care Code Est Pt Level 4 (92368) Diagnoses Pure hypercholesterolemia E78.00 Type 2 diabetes mellitus with diabetic neuropathy, without long-term current use of insulin E11.40 Diabetes mellitus complication detail: with unspecified neuropathy Diabetes mellitus complication status: with neurologic complications Diabetes mellitus termite control servicer insulin use: without retirement use Diabetes mellitus type: type 2 Sinus bradycardia R00.1 Anemia, unspecified type D64.9 Anemia type: unspecified type Nonintractable epilepsy without status epilepticus, unspecified epilepsy type G40.909 Epilepsy type: unspecified Intractability: not intractable Status epilepticus: without status epilepticus Vitamin B12 deficiency E53.8 Neuropathy G62.9 Nocturnal leg cramps G47.62 Vitamin D deficiency E55.9 Constipation, unspecified constipation type K59.00 Constipation type: unspecified constipation type Gastroesophageal reflux disease without esophagitis K21.9 Esophagitis presence: without esophagitis Dementia without behavioral disturbance F03.90 Osteoarthritis, unspecified osteoarthritis type, unspecified site M19.90 Osteoarthritis location: unspecified site Osteoarthritis type: unspecified Glaucoma, unspecified glaucoma type, unspecified laterality H40.9 Glaucoma type: unspecified Laterality: unspecified laterality Insomnia, unspecified type G47.00 Insomnia type: unspecified
[2024-02-23 16:57] VITALS: BP 112/64; PULSE 65; O2SAT 96; BMI 20.6
== END 2024-02-23 17:38 | disposition home or self-care (01) ==
PROVIDERS: PCP Internal Medicine; Visit Provider Internal Medicine
DX: E11.40 Type 2 diabetes mellitus with diabetic neuropathy, unspecified (principal); G40.909 Epilepsy, unspecified, not intractable, without status epilepticus; F03.90 Unspecified dementia, unspecified severity, without behavioral disturbance, psychotic disturbance, mood disturbance, and anxiety; E78.00 Pure hypercholesterolemia, unspecified; R00.1 Bradycardia, unspecified; D64.9 Anemia, unspecified; E53.8 Deficiency of other specified B group vitamins; G62.9 Polyneuropathy, unspecified; G47.62 Sleep related leg cramps; E55.9 Vitamin D deficiency, unspecified; K59.00 Constipation, unspecified; K21.9 Gastro-esophageal reflux disease without esophagitis
CPT/HCPCS: 83036; 99214

== ENCOUNTER 2024-05-02 10:17 | Outpatient (AMB) | payer MEDICARE, SELFPAY ==
[2024-05-02 10:21] VITALS: BP 122/80; PULSE 81; O2SAT 99; BMI 19.1
--- NOTE | 2024-05-02 10:21 | AM.OFFVISMDC ---
Intake Vital Signs 05/02/24 10:21 Height 4 ft 8 in Weight 85 lb 2 oz BMI 19.1 BP 122/80 Blood Pressure Location Lt brachial Position Sitting Pulse 81 Pulse Source Pulse Oximeter Pulse Oximetry (%) 99 Oxygen Delivery Method Room Air Intake Visit Reasons: SAWV Fruit Packer Required: No Accompanied by: Self / Same As Patient Allergies Penicillins Allergy (Intermediate, Verified 05/03/24 04:18) RASH Medication List - Last Reconciled 05/03/24 by Cuate Oscar MD alendronate 70 mg PO QWEEK atorvastatin 40 mg PO BEDTIME 90 days bisacodyl (Dulcolax (bisacodyl)) 10 mg (2 x 5 mg) PO BEDTIME PRN 30 days cholecalciferol (vitamin D3) (Vitamin D3) 50 mcg PO BID cyanocobalamin (vitamin B-12) 1,000 mcg PO DAILY docusate sodium 100 mg PO BEDTIME PRN ferrous sulfate 325 mg PO DAILY 90 days gabapentin 300 mg PO BEDTIME 30 days hydrocortisone 2.5% 1 appl MD BID-QID PRN 15 days latanoprost 0.005% 1 drp ophthalmic (eye) BEDTIME levetiracetam 750 mg PO BID 30 days lubiprostone (Amitiza) 8 mcg PO BID 30 days metformin 500 mg PO BID 90 days omeprazole 20 mg PO DAILY 90 days sennosides (senna) 17.2 mg (2 x 8.6 mg) PO BID PRN 90 days Do you need a note to return to daycare/school/sports/work: No HPI SAWV HPI Details Patient comes in today for her Medicare Annual Wellness Exam She states that she feels okay and currently denies any acute issues [facility] of care was reviewed with the patient and her son Osito, who helped with interpretation. Patient's son states that she has a healthcare proxy in place and they will provide the office with a copy. They were provided with a MOLST form and DNR form and these were discussed with them. Her son will discuss these with the patient and the rest of her family and fill these out as soon as posisble and bring them back here for completion IPPE/AWV: c/o of Annual Wellness Visit, subsequent visit. Medical / Social History Reviewed Past Medical History Yes . [facility] of Care / Care Team list updated Yes . Surgical/Hospitalization History Yes . Current Medications (including OTC and supplements) Yes . Family History Yes . Tobacco Control form Yes . AUDIT-C (Alcohol use) form Yes . Illicit drug use in Social History Yes . Current diagnosis of depression? No Appropriate PHQ2/PHQ9 completed Yes . Data entered by Electrical Designer Drafter and reviewed by provider Home Safety Throw rugs? No Grab bars? No Raised toilet seats? No Working smoke detectors? Yes Working carbon monoxide detectors? Yes Data entered by Electrical Designer Drafter and reviewed by provider Activities of Daily Living (ADLs) Difficulty bathing or showering? No Difficulty dressing? No Difficulty using the toilet? No Difficulty getting in and out of bed? No Difficulty walking? No Receives help from another person with any of the above tasks? No Instrumental Activities of Daily Living (IADLs) Uses the telephone without help Gets to places out of walking distance with help Goes shopping for groceries with help Prepares own meals without help Does own minor home maintenance with help Does own laundry with help Does own housework with help Manages own money with help Currently takes medications? Yes Takes medication with help End-of-Life Planning Discussed advance directive Yes Advance directive not on file Discussed wishes expressed in advance directive agreed to following patient's wishes Fall Risk: Fall History Have you had any falls with injury in the past year? No . Have you had two or more falls in the past year? No . Fall Risk Assessment: No falls in the past year . HRA filled out by the patient, reviewed by Provider and scanned. [facility] Medical History Chest pressure Osteoporosis (~2007) Tubular adenoma of colon (~2019) Post-menopausal Left arm swelling Swelling of lymph node Cardiac pacemaker in situ (~2018) Sick sinus syndrome Overweight (BMI 25.0-29.9) Insomnia Degenerative joint disease Nocturnal leg cramps Dementia without behavioral disturbance GERD (gastroesophageal reflux disease) Constipation Vitamin D deficiency Neuropathy Vitamin B12 deficiency Epilepsy (~1998) Anemia Sinus bradycardia Pure hypercholesterolemia Diabetes mellitus Surgical History History of endoscopy History of ankle surgery (~2011) History of partial gastrectomy History of colonoscopy History of pacemaker (~2018) History of hysterectomy Family History Father Medical history unknown Mother No problems noted. Daughter No problems noted. Son No problems noted. 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 Cognitive needs: No Hearing needs: No Vision needs: Yes Questionnaire Medicare Wellness Checkup What is your age?: 81 or older What gender do you identify with?: female During the past 4 weeks, how much have you been bothered by emotional problems such as feeling anxious, depressed, irritable, sad or downhearted, and blue?: not at all During the past 4 weeks, has your physical & emotional health limited your social activities with family, friends, neighbors, or groups?: not at all During the past 4 weeks, how much bodily pain have you generally had?: moderate pain During the past 4 weeks, was someone available to help you if you needed & wanted help?: yes, as much as I wanted During the past 4 weeks, what was the hardest physical activity you could do for at least 2 minutes?: very light Can you get to places out of walking distance without help? (For eg., can you travel alone on buses, taxis or drive your car?): No Can you go shopping for groceries or clothes without someone's help?: No Can you prepare your own meals?: Yes Can you do your housework without help?: No Because of any health problems, do you need the help of another person with your personal care needs such as eating, bathing, dressing or getting around the house?: No Can you handle your own money without help?: No During the past 4 weeks, how would you rate your health in general?: good During the past 4 weeks how have things been going for you?: pretty well Are you having difficulties driving your car?: not applicable, I don't use a car Do you always fasten your seat belt when you are in a car?: yes, usually During past 4 weeks, have you been bothered by the following: never: Teeth or denture problems? and Problems using the telephone?, seldom: Trouble eating well? and sometimes: Falling or dizzy when standing up and Tiredness or fatigue? Have you fallen 2 or more times in the past year?: Yes Are you afraid of falling?: Yes Are you a smoker?: no During the past 4 weeks, how many drinks of wine, beer, or other alcoholic beverages did you have?: no alcohol at all Do you exercise for about 20 minutes 3 or more times a week?: no, I usually do not exercise this much Have you been given information to help with the following?: yes: Hazards in your house that might hurt you? and yes: Keeping track of your medications? How often do you have trouble taking medicines the way you have been told to take them?: I always take medicine as prescribed How confident are you that you can control & manage most of your health problems?: somewhat confident What is your race?: or origin or descent Mini Mental State Exam (MMSE) Orientation What is the (year) (season) (date) (day) (month)?: year, season, date, day and month Where are we (state) (county) (town or city) (hospital) (floor)?: state, county, town or city, hospital/clinic and floor Score Score: 10 Activity of Daily Living Bathing - sponge bath, tub bath or shower: receives no assistance (gets in/out by self, if usual bathing means Dressing - getting clothes from closets & drawers, including inner/outer garments & fasteners.: gets clothes & gets completely dressed without help Toileting - going to the 'toilet room' for urine/bowel elimination & cleaning self/arranging clothes: goes to toilet room, cleans self, arranges clothes without help Transfer: moves in & out of bed and chair without help (may use support object) Continence: controls urination/bowel movements completely by self Feeding: feeds self without help Total Score: 0 Information obtained from: patient Using telephone: independent Traveling: needs assistance Shopping: dependent Preparing meals: independent Housework: dependent Taking medicine: dependent Managing money: needs assistance PHQ-9 Over the last 2 weeks, how often have you been bothered by any of the following problems? 1. Little interest or pleasure in doing things: not at all 2. Feeling down, depressed, or hopeless: not at all 3. Trouble falling or staying asleep, or sleeping too much: several days 4. Feeling tired or having little energy: several days 5. Poor appetite or overeating: several days 6. Feeling bad about yourself - or that you are a failure or have let yourself or your family down: not at all 7. Trouble concentrating on things, such as reading the newspaper or watching television: not at all 8. Moving or speaking so slowly that other people could have noticed. Or the opposite - being so fidgety or restless that you have been moving around a lot more than usual: several days 9. Thoughts that you would be better off or of hurting yourself in some way: not at all Total score: 4 Depression Screening Interpretation: Positive Depression Screening Follow-up: Follow-up Visit Requested Depression Screening Done: Yes 33980 - PHQ-9 Billing: Yes Source: Developed by Drs. Yash Harris, Noemi Kaur, Alexander Parnell and colleagues, with an educational brittany from [employer]. PHQ-2/PHQ-9 PHQ-2 Over the last 2 weeks, how often have you been bothered by any of the following problems? 1. Little interest or pleasure in doing things: not at all 2. Feeling down, depressed, or hopeless: not at all Total score: 0 If score is 3 or greater, continue 3. Trouble falling or staying asleep, or sleeping too much: several days 4. Feeling tired or having little energy: several days 5. Poor appetite or overeating: several days 6. Feeling bad about yourself - or that you are a failure or have let yourself or your family down: not at all 7. Trouble concentrating on things, such as reading the newspaper or watching television: not at all 8. Moving or speaking so slowly that other people could have noticed. Or the opposite - being so fidgety or restless that you have been moving around a lot more than usual: several days 9. Thoughts that you would be better off or of hurting yourself in some way: not at all Total score: 4 0-4 None-Minimal, 5-9 Mild, 10-14 Moderate, 15-19 Moderately Severe, 20-27 Severe Source: Developed by Drs. Yash Harris, Noemi Kaur, Alexander Parnell and colleagues, with an educational brittany from [employer]. Thrive Questionnaire Date Thrive assessed: 05/02/24 I am a: Patient What is your living situation today?: I have a steady place to live Within the past 12 months, did the food you bought not last and you didn't have the money to get more?: Never true Within the past 12 months, did you worry whether your food would run out before you got money to buy more?: Never true Do you have trouble paying for medicines?: No Do you have trouble getting transportation to medical appointments?: No Do you have trouble paying your heating and electricity bill?: No Do you have trouble taking care of your child, family member or friend?: No Do you have trouble with day-to-day activities such as bathing, preparing meals, shopping, managing finances, etc.?: No Are you currently unemployed and looking for a job?: No Are you interested in more education?: No Please select the resources that you would like help with: None Currently or been in a relationship where the following occur: No concerns reported THRIVE Score: 0 SHER-7 AMB Questionnaire SHER-7 Date SHER - 7 assessed: 05/02/24 Feeling nervous, anxious, or on edge: 0 = Not at all Not being able to stop or control worryin = Not at all Worrying too much about different things: 0 = Not at all Trouble relaxin = Not at all Being so restless that it is hard to sit still: 0 = Not at all Becoming easily annoyed or irritable: 0 = Not at all Feeling afraid as if something awful might happen: 0 = Not at all Total SHER-7 score (0-4 normal; 5-9 mild; 10-14 moderate; 15-21 severe): 0 Source: Developed by Drs. Yash Harris, Noemi Kaur, Alexander Parnell and colleagues, with an educational brittany from [employer]. Review of Systems Const Denies chills, Reports fatigue, Denies fever(s) and Denies headache(s) ENT Denies dysphagia, Denies dizziness, Denies otalgia, Denies headache(s), Denies neck pain, Denies odynophagia and Denies sore throat Card Denies chest pain, Denies palpitations and Denies dyspnea Resp Denies cough, Denies dyspnea and Denies wheezing GI Denies abdominal pain, Reports constipation, Denies dysphagia, Denies heartburn, Denies diarrhea, Denies nausea, Denies odynophagia and Denies vomiting Denies difficulty voiding, Denies nocturia, Denies dysuria and Denies urinary urgency Musc Denies neck pain Skin/Breast Denies rash Neuro Denies dizziness and Denies headache(s) Endo Reports fatigue and Denies palpitations Aller/Immun Denies wheezing Physical Exam Vital Signs: Last Vital Signs Pulse 81 05/02/24 10:21 BP 122/80 05/02/24 10:21 Pulse Ox 99 05/02/24 10:21 Oxygen Delivery Method Room Air 05/02/24 10:21 BMI result Body Mass Index 19.1 IPPE/AWV: Balance Romberg Yes . Tandem walk No . Walk and Turn No . Rise from sit to stand No . Vision Corrective lens Yes Vision screen pass Hearing Whisper test pass . Urinary incont. no. EKG Not clinically necessary. Const General: no acute distress and alert Orientation/consciousness: patient oriented x3 Neuro General: patient oriented x3 Cognition (Neuro): normal cognition Romberg Test: Negative Extrem General: Yes no clubbing, cyanosis or edema Psych Thought process: Normal thought process present Assessment & Plan Assessment & Plan (1) Medicare annual wellness visit, subsequent: Code(s): Z00.00 - Encounter for general adult medical examination without abnormal findings Plan: HRA for discussed and completed with patient and her son, who acts as plastics bench mechanic during today's visit [facility] of care was reviewed and discussed and updated Plan To return as scheduled in June 2024 for her next follow up visit Quality Reporting (2019) Depression/Bipolar (159/160/161/177) PHQ-9: Total score: 4 Coding Level of Care Code Medicare Subsequent (G0439) Diagnoses Medicare annual wellness visit, subsequent Z00.00 CPT Codes Advance Care Planning - Time spent: 1-15 minutes, on File ([id number]) Advance Care Planning Advance Care Planning discussion: Exists, not on file (Patient's son instructed to bring copy in for us to scan into patient's file for documentation) Date of discussion: 05/02/24 Who was present: patient, son, PCP Forms completed: Health Care Proxy (Patient's son instructed to bring copy in for us to scan into patient's file for documentation), MOLST (form handed to patient's son and advised to bring back when completed) and Comfort care/DNR (form handed to patient's son and advised to bring back when completed) Time spent: 1-15 minutes, on File
== END 2024-05-02 12:44 | disposition home or self-care (01) ==
PROVIDERS: PCP Internal Medicine; Visit Provider Internal Medicine
DX: Z00.00 Encounter for general adult medical examination without abnormal findings (principal); I49.5 Sick sinus syndrome; Z95.0 Presence of cardiac pacemaker
CPT/HCPCS: 1123F; G0439

== ENCOUNTER 2024-05-06 11:26 | Observation (INO) | payer MEDICARE, SELFPAY ==
--- NOTE | ~2024-05-06 | XR_ITS ---
EXAMINATION: XR RIBS, LEFT CLINICAL INFORMATION: Trauma. COMPARISON: CT dated 06/02/2022 and radiographs dated 820.3 TECHNIQUE: AP view of the chest and 3 views of the left ribs were obtained. FINDINGS: Left pectoral pacemaker leads terminate in the right atrium and right ventricle. Surgical clips overlie the cardiac silhouette. Diffuse interstitial opacities are again seen in both lungs, more pronounced peripherally, consistent with underlying interstitial lung disease. Bones are osteopenic. No acute fractures are identified. Specifically, the imaged ribs appear intact. Small 5 mm focus of calcific tendinitis at the teres minor insertion of the left humeral head. XR/XR ribs LT min 3V w CXR1V IMPRESSION: 1. No acute fractures are identified. 2. Chronic interstitial lung disease. Electronically signed by: Felix Domínguez MD 05/06/2024 03:01 PM EDT
--- NOTE | ~2024-05-06 | CT_ITS ---
CT HEAD AND CERVICAL SPINE WITHOUT CONTRAST HISTORY: Trauma, possible CVA TECHNIQUE: Contiguous axial imaging was performed from the skull base to vertex without intravenous contrast. Sagittal and coronal reformatted images were obtained. CT images of the cervical spine were acquired without intravenous contrast. This CT examination was performed using dose optimization techniques as appropriate, variously including the following: *Automated exposure control *Adjustment of mA and/or kV according to patient size (this includes techniques or standardized protocols for targeted exams where dose is matched to indication/reason for exam; i.e. extremities or head) *Use of iterative reconstruction technique DLP: 216 mGy-cm COMPARISON: CT head and cervical spine May 01, 2022 FINDINGS: CT HEAD: Progressive mild global cerebral volume loss. Patchy periventricular and deep white matter hypoattenuation is nonspecific but likely reflects mild to moderate small vessel ischemic changes. No territorial loss of pizano-white differentiation. No acute intracranial hemorrhage or extra-axial fluid collection. No mass lesion, significant mass effect, or herniation pattern. As replacements. Paranasal sinuses and mastoid air cells are well aerated. Osseous structures are intact. Redemonstrated induration/scarring along the anterior left frontal scalp. New trace left parietal subgaleal scalp hematoma/contusion. CT CERVICAL SPINE: No prevertebral soft tissue swelling. The craniocervical junction is intact. Vertebral body heights are normal without acute compression fracture or traumatic posterior element subluxation. The cervical lordosis is preserved. There is no significant spondylolisthesis. Please note that CT is insensitive for evaluating spinal canal patency without intrathecal contrast. Redemonstrated cervical spondylosis. Partially mineralized lesion within the ventral spinal canal at C3-C4 may reflect mineralization of extruded disc material however an ossified meningioma may have a similar appearance and would be better differentiated on contrast-enhanced MRI of the cervical spine. In conjunction with ossified ligamentum flavum thickening at this level, there is stable apparent moderate spinal canal stenosis with mass effect along the cervical cord. Normal appearance of the paraspinal soft tissues. Mild biapical pleural-parenchymal scarring. Normal appearance of the thyroid gland. CT/CT cervical spine wo IV con IMPRESSION: 1. No large territorial infarct or acute intracranial hemorrhage. 2. No CT evidence of acute intracranial injury. New trace left parietal subgaleal scalp hematoma/contusion. 3. No evidence of acute traumatic injury in the cervical spine. 4. Partially mineralized lesion within the ventral spinal canal at C3-C4 may reflect mineralization of extruded disc material however an ossified meningioma may have a similar appearance and would be better differentiated on contrast-enhanced MRI of the cervical spine. Stable apparent moderate spinal canal stenosis with mass effect along the cervical cord at this level. Impression 1 was discussed with Gold Sandoval at 12:23 PM on 05/06/2024 and it was ascertained that the content and urgency of the report was understood at the time of direct communication. Electronically signed by: Kimmy Brady MD 05/06/2024 12:24 PM EDT
[2024-05-06 11:47] LABS: Glucose, Whole Blood 155 mg/dL (60-115)
--- NOTE | 2024-05-06 11:53 | ECG_ITS ---
Test Reason : STROKE Blood Pressure : / mmHG Vent. Rate : 082 BPM Atrial Rate : 000 BPM P-R Int : 000 ms QRS Dur : 066 ms QT Int : 332 ms P-R-T Axes : 000 040 008 degrees QTc Int : 387 ms Normal sinus rhythm Normal ECG When compared with ECG of 28-JUN-2023 02:33, Sinus rhythm has replaced Electronic atrial pacemaker Referred By: Gold Sandoval Electronically Signed By:ADELINA SHAW
[2024-05-06 12:03] VITALS: BP 132/76; BP 171/71; PULSE 74; PULSE 82; RESP 15; TEMP 36.6; O2SAT 98; O2SAT 99; BMI 16.4
[2024-05-06 12:05] LABS: MANUAL DIFF FLAG NO
[2024-05-06 12:06] LABS: Basophils Percent Auto 0.3 % (0-2); Eosinophils Absolute Auto 0.1 X10*3/uL (0.0-0.4); Eosinophils Percent Auto 0.8 % (0-4); Hematocrit 35.3 % (37.0-47.0); Hemoglobin 11.8 g/dl (12.0-16.0); Imm Gran Abs Auto 0.12 X10*3/uL (0.00-0.03); Lymphocytes Absolute Auto 1.5 X10*3/uL (1.2-4.9); Lymphocytes Percent Auto 25.1 % (20-40); Mean Corpuscular HGB Conc 33.4 g/dl (31.0-35.0); Mean Corpuscular Hemoglobin 31.1 pg (27.0-33.0); Mean Corpuscular Volume 93.1 fL (80.0-98.0); Mean Platelet Volume 11.1 fL (9.4-12.3); Monocytes Absolute Auto 0.5 X10*3/uL (0.1-1.2); Monocytes Percent Auto 7.3 % (2-11); Neutrophils Percent Auto 64.5 % (45-73); Platelet Count 228 X10*3/uL (160-400); Red Blood Count 3.79 X10*6/uL (4.20-5.50); White Blood Count 6.1 X10*3/uL (4.8-10.8)
[2024-05-06 12:14] LABS: INTERNATIONAL NORM RATIO 0.9 (0.9-1.1); Prothrombin Time 10.9 SEC (11.1-13.3)
[2024-05-06 12:16] LABS: Partial Thromboplastin Time 25.2 SEC (26.0-36.8)
[2024-05-06 12:17] LABS: Stroke Lab Use COMPLETE
--- NOTE | 2024-05-06 12:19 | ED_ITS ---
HPI - Neuro Symptoms/Deficit General Chief Complaint: Stroke Stated Complaint: STROKE VS SZ,?POSTICTAL,DROOP,LKWT 9:30/10 AM Time Seen by Provider: 05/06/24 11:34 Source: family (sathish) Mode of arrival: EMS History of Present Illness HPI Narrative: This is 84 years old patient with history of seizure disorder on Keppra 750 mg b.i.d. brought in after as seizure vs syncope , she arrived awake and alert no focal. Granddaughter who lives downstairs heard the noise she went upstairs she found the grandmother confused and ambulance was called she was transported to the emergency department Onset (ago): hour(s) (1) Timing confirmed by: family member (granddaughter) History of same: Yes Severity: moderate Relieving factors: none Associated symptoms: seizures Related Data Home Medications ?Medication ?Instructions ?Recorded ?Confirmed latanoprost 0.005 % eye drops 1 drp ophthalmic (eye) BEDTIME 12/30/21 05/03/24 alendronate 70 mg tablet 70 mg PO QWEEK 09/15/23 05/03/24 Previous Rx's ?Medication ?Instructions ?Recorded bisacodyl 5 mg tablet,delayed 10 mg (2 x 5 mg) PO BEDTIME PRN 07/06/23 release (Dulcolax (bisacodyl)) constipation 30 days #10 tabs sennosides 8.6 mg tablet (senna) 17.2 mg (2 x 8.6 mg) PO BID PRN 11/06/23 Constipation 90 days #360 tabs atorvastatin 40 mg tablet 40 mg PO BEDTIME 90 days #90 tabs 12/08/23 hydrocortisone 2.5 % topical cream 1 appl CO BID-QID PRN hemorrhoids 12/28/23 with perineal applicator 15 days #30 grams gabapentin 300 mg capsule 300 mg PO BEDTIME 30 days #30 caps 02/06/24 lubiprostone 8 mcg capsule 8 mcg PO BID 30 days #60 caps 02/08/24 (Amitiza) cyanocobalamin (vitamin B-12) 1,000 mcg PO DAILY #90 caps 02/23/24 1,000 mcg capsule metformin 500 mg tablet 500 mg PO BID 90 days #180 tabs 02/23/24 omeprazole 20 mg capsule,delayed 20 mg PO DAILY 90 days #90 caps 02/23/24 release levetiracetam 750 mg tablet 750 mg PO BID 30 days #60 tabs 04/17/24 cholecalciferol (vitamin D3) 50 50 mcg PO BID #60 tabs 04/29/24 mcg (2,000 unit) tablet (Vitamin D3) docusate sodium 100 mg capsule 100 mg PO BEDTIME PRN for 04/29/24 constipation #90 caps ferrous sulfate 325 mg (65 mg 325 mg PO DAILY 90 days #90 tabs 04/29/24 iron) tablet Allergies Allergy/AdvReac Type Severity Reaction Status Date / Time Penicillins Allergy Intermediate RASH Verified 05/06/24 12:06 Review of Systems 2 Review of Systems: Yes Unobtainable due to mental status [facility] Past Medical History Attestation statement: The following information was validated with the patient. Medical History Chest pressure Osteoporosis (~2007) Tubular adenoma of colon (~2019) Post-menopausal Left arm swelling Swelling of lymph node Cardiac pacemaker in situ (~2018) Sick sinus syndrome Overweight (BMI 25.0-29.9) Insomnia Degenerative joint disease Nocturnal leg cramps Dementia without behavioral disturbance GERD (gastroesophageal reflux disease) Constipation Vitamin D deficiency Neuropathy Vitamin B12 deficiency Epilepsy (~1998) Anemia Sinus bradycardia Pure hypercholesterolemia Diabetes mellitus Surgical History History of endoscopy History of ankle surgery (~2011) History of partial gastrectomy History of colonoscopy History of pacemaker (~2018) History of hysterectomy Family History Family History Father Medical history unknown Mother No problems noted. Daughter No problems noted. Son No problems noted. Other Substance use disorder Social History Social History Household Members: None Housing: House Are you a primary child care specialist to a significant other at home: No Do you presently have visiting nurse or other home services: No Alcohol intake: never Patient Tobacco Use Status: Never used Tobacco Tobacco use type: Cigarette Smoked in Last 30 Days: No e-Cigarette/Vaping Use: Never Used Second Hand Smoke Exposure: No Use of substances other than those prescribed or required for medical reasons: No Advance Directives: Yes Advance Directives Information Provided: Yes Advance Directives on File: No Do you have a plan to hurt others: No Plan service: No Current occupational status: retired 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 Cognitive needs: No Hearing needs: No Vision needs: Yes Physical Exam 2 Vital Signs: Vital Signs: Last Vital Signs Temp 98 F 05/06/24 13:42 Pulse 66 05/06/24 14:00 Resp 14 05/06/24 14:00 BP 153/58 H 05/06/24 14:00 Pulse Ox 96 05/06/24 14:00 O2 Del Method Room Air 05/06/24 14:00 BMI result Body Mass Index 16.4 Awake alert in not acute distress Const: General: cooperative, comfortable, no acute distress, well developed, alert and awake Nutritional Appearance: well nourished O rientation/consciousness: patient oriented x3 Limitations: no limitations HEENT: Head: Yes normal to inspection General nose exam: Normal nasal mucous membranes and turbinates present Face and sinus: Yes normal facial exam Mouth: Normal oral and palatal mucosa present Neck: Neck: Yes normal visual inspection, Yes full ROM and Yes no lymphadenopathy Thyroid: Thyroid normal Chest: Chest palpation & inspection: normal inspection of the chest Resp: Effort & Inspection: normal respiratory effort Auscultation: clear to auscultation bilaterally Cardio: Jugular venous distension: no JVD Rate: regular rate Rhythm: r egular rhythm GI: Inspection: Yes normal to inspection Palpation (GI): Soft to palpation Percussion: Yes normal to percussion Skin: General skin exam: no rashes or lesions noted and elasticity normal Neuro: General: patient oriented x3 Cranial nerves: Yes CN's II-XII intact bilaterally Cognition (Neuro): normal cognition Motor exam (neuro): 5/5 motor strength present throughout Course Reevaluation(s) Reevaluation #1: Remain stable no seizure activity seen, labs okay spoke with the son at length he will be more comfortable if the mother stay overnight for observation, this is very reasonable she has a pacemaker differential diagnosis is syncope versus seizure will page hospitalist Time: 14:50 Medications Administered Generic Name Dose Route Start Last Admin Trade Name Freq PRN Reason Stop Dose Admin Levetiracetam 750 mg/ Sodium 107.5 mls @ 430 mls/hr 05/06/24 14:00 05/06/24 13:29 Chloride IV Infused Q12H NATALIA Infusion Discontinued Medications Generic Name Dose Route Start Last Admin Trade Name Robert PRN Reason Stop Dose Admin Acetaminophen 975 mg 05/06/24 13:27 05/06/24 13:41 Acetaminophen 325 Mg Tablet PO 05/06/24 13:28 975 mg ONCE ONE Administration Medical Decision Making Medical Decision Making [facility] Narrative: Patient presented postictal after seizure will check labs imaging and reassess Differential Diagnosis Differential Diagnoses: The differential diagnosis associated with the presentation includes Subdural hematoma/ epidural hematoma /subtherapeutic Keppra Admission/Observation Consideration of admission/observation: Escalation of care including admission/observation considered Lab Data [facility] Lab Attestation statement: I reviewed the patient's lab results. 05/06/24 11:57 05/06/24 11:57 Labs: Lab Results 05/06/24 05/06/24 Range/Units 11:43 11:57 WBC 6.1 (4.8-10.8) X10*3/uL RBC 3.79 L (4.20-5.50) X10*6/uL Hgb 11.8 L (12.0-16.0) g/dl Hct 35.3 L (37.0-47.0) % MCV 93.1 (80.0-98.0) fL MCH 31.1 (27.0-33.0) pg MCHC 33.4 (31.0-35.0) g/dl RDW 14.0 (11.0-16.0) % Plt Count 228 D (160-400) X10*3/uL MPV 11.1 (9.4-12.3) fL Immature Gran % (Auto) 2.0 H (0.0-0.4) % Neut % (Auto) 64.5 (45-73) % Lymph % (Auto) 25.1 (20-40) % [place] % (Auto) 7.3 (2-11) % Eos % (Auto) 0.8 (0-4) % Baso % (Auto) 0.3 (0-2) % Lymph # (Auto) 1.5 (1.2-4.9) X10*3/uL [place] # (Auto) 0.5 (0.1-1.2) X10*3/uL Eos # (Auto) 0.1 (0.0-0.4) X10*3/uL Baso # (Auto) 0.0 (0.0-0.2) X10*3/uL Abs Immat Gran (auto) 0.12 H (0.00-0.03) X10*3/uL Absolute Neuts (auto) 4.0 (2.0-8.3) x10*3/uL Absolute Nucleated RBC 0.000 (0.0-0.012) X10*3/uL Nucleated RBC % (auto) 0.0 (0.0-0.2) /100WBC PT 10.9 L (11.1-13.3) SEC INR 0.9 (0.9-1.1) APTT 25.2 L (26.0-36.8) SEC Sodium 138 (135-145) mmol/L Potassium 4.5 (3.3-5.1) mmol/L Chloride 105 (96-108) mmol/L Carbon Dioxide 25 (22-29) mmol/L Anion Gap 13 (12-20) BUN 14 (9-16) mg/dL Creatinine 0.99 (0.5-1.4) mg/dL Estim Creat Clear Calc 28.5 Estimated GFR 54 POC Glucose 155 H (60-115) mg/dL Random Glucose 165 H (60-115) mg/dL Calcium 10.0 D (8.4-10.2) mg/dL Troponin I High Sens 3.1 (<3.5-17.0) ng/L Triglycerides 75 (<150) mg/dL Cholesterol 149 (<200) mg/dL LDL Cholesterol, Calc 70 (<100) mg/dL HDL Cholesterol 64 (>40) mg/dL Independent Interpretation I performed an independent interpretation of an: CT Scan Interpretation: head ct no bleed Independent Historian Clinical information obtained from an independent historian. History obtained from or confirmed by: Other granddaughter and son External Record Review External record reviewed: Inpatient record Discharge Plan Discharge Clinical Impression: Syncope, Seizure Patient Disposition: Admitted As Inpatient
[2024-05-06 12:21] LABS: Anion Gap 13 (12-20); Blood Urea Nitrogen 14 mg/dL (9-16); Carbon Dioxide 25 mmol/L (22-29); Chloride 105 mmol/L (96-108); Cholesterol 149 mg/dL (<200); Creatinine Clr Calc Pharmacy 28.5; Estimated Glomerular Filt Rate 54; Glucose Random 165 mg/dL (60-115); HDL Cholesterol 64 mg/dL (>40); LDL Cholesterol Calculated 70 mg/dL (<100); Potassium 4.5 mmol/L (3.3-5.1); Sodium 138 mmol/L (135-145); Triglycerides 75 mg/dL (<150)
[2024-05-06 12:29] LABS: Troponin-I High Sensitivity 3.1 ng/L (<3.5-17.0)
[2024-05-06] MEDS: levETIRAcetam 750 MG in 0.9 % Sodium Chloride 100 ML 430 MG IV (13:03)
--- NOTE | 2024-05-06 13:17 | PC.NURSE ---
Pt BIBA from home for ?stroke like symptoms/ ?seizure. Pt was found on the floor around 11:45am by granddaughter. Unknown headstrike, +LOC, -thinners. Per pt family, hx of seizures. Family thinks she was post-ictal seizure, going in and out of consciousness when found. Per EMS pt had facial drooping/decreased strength/weakness. Upon arrival, facial droop resolved, equal strength bilaterally. Denies cp/sob/headache/blurry vision. Respirations even and unlabored, no increased wob/sob noted, lung sounds cta bilaterally, s1 and s2 heard, NSR on personnel monitor, HR-60s, abdomen soft, non-tender. CT scan pending results, ekg and labs obtained. 20g IV placed in right AC. Family at bedside, call gómez within reach, all needs met at this time.
[2024-05-06] MEDS: Acetaminophen 325 MG TABLET 975 MG PO (13:41)
[2024-05-06 13:42] VITALS: BP 151/59; PULSE 64; RESP 18; TEMP 36.6; O2SAT 100
[2024-05-06 14:00] VITALS: BP 153/58; PULSE 66; RESP 14; O2SAT 96
--- NOTE | 2024-05-06 15:35 | PM.IMHP ---
History of Present Illness Date of Service: 05/06/24 Chief Complaint: loc 84F PMH epilepsy, sick sinus syndrome status post pacer, diabetes, osteoporosis, presented with loss of consciousness. Patient does not remember event. Her sister reports seeing her on the floor and noted some convulsions. Patient's granddaughter found her on the floor incontinent of urine. Patient was postictal for some time before returning to baseline mental status. She did have a mild head strike, trauma workup in the ED was unremarkable. Patient reports not being consistent in taking her Keppra. Review of Systems Review of Systems: Yes all other systems are reviewed and are negative [facility] Medical History Chest pressure Osteoporosis (~2007) Tubular adenoma of colon (~2019) Post-menopausal Left arm swelling Swelling of lymph node Cardiac pacemaker in situ (~2018) Sick sinus syndrome Overweight (BMI 25.0-29.9) Insomnia Degenerative joint disease Nocturnal leg cramps Dementia without behavioral disturbance GERD (gastroesophageal reflux disease) Constipation Vitamin D deficiency Neuropathy Vitamin B12 deficiency Epilepsy (~1998) Anemia Sinus bradycardia Pure hypercholesterolemia Diabetes mellitus Family History Father Medical history unknown Mother No problems noted. Daughter No problems noted. Son No problems noted. Other Substance use disorder Surgical History History of endoscopy History of ankle surgery (~2011) History of partial gastrectomy History of colonoscopy History of pacemaker (~2018) History of hysterectomy Social History Household Members: None Housing: House Are you a primary healthcare or medical to a significant other at home: No Do you presently have visiting nurse or other home services: No Alcohol intake: never Patient Tobacco Use Status: Never used Tobacco Tobacco use type: Cigarette Smoked in Last 30 Days: No e-Cigarette/Vaping Use: Never Used Second Hand Smoke Exposure: No Use of substances other than those prescribed or required for medical reasons: No Advance Directives: Yes Advance Directives Information Provided: Yes Advance Directives on File: No Do you have a plan to hurt others: No Plan service: No 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 Cognitive needs: No Hearing needs: No Vision needs: Yes Meds Allergies Allergy/AdvReac Type Severity Reaction Status Date / Time Penicillins Allergy Intermediate RASH Verified 05/06/24 12:06 Active Medications: Current Medications Acetaminophen (Acetaminophen 325 Mg Tablet) 650 mg PO Q6H PRN PRN Reason: Pain, Mild (Pain Scale 1-3), fever or headache Calcium Carbonate (Calcium Carbonate 750 Mg Tab.Chew) 750 mg PO Q4H PRN PRN Reason: Heartburn Enoxaparin Sodium (Enoxaparin Sodium 40 Mg/0.4 Ml Syringe) 40 mg SUBCUT Q24H [facility] Glucose (Glucose Gel 15 Gm Gel..Gram.) 15 gm PO Q15M PRN; Protocol PRN Reason: per Hypoglycemia Standing Ord. Levetiracetam 750 mg/ Sodium (Chloride) 107.5 mls @ 430 mls/hr IV Q12H [facility] Last Infusion: 05/06/24 13:29 Dose: Infused Dextrose (D10) 250 mls @ 750 mls/hr IV Q15M PRN; Protocol PRN Reason: per Hypoglycemia Standing Ord. Insulin Human Lispro (Insulin Lispro 100 Unit/Ml 3 Ml Vial) 0 unit SUBCUT QIDACHS [facility]; Protocol Levetiracetam (Levetiracetam 250 Mg Tablet) 750 mg PO BID [facility] Magnesium Hydroxide (Milk Of Magnesia 30 Ml Oral.Susp) 30 ml PO DAILY PRN PRN Reason: Constipation Melatonin (Melatonin 3 Mg Tablet) 6 mg PO BEDTIME PRN PRN Reason: Insomnia Sodium Chloride (0.9 % Sodium Chloride Flush 3 Ml Syringe) 3 ml IVFLUSH QSHIFT [facility] Home Medications ?Medication ?Instructions ?Recorded ?Confirmed ?Last Taken ?Type latanoprost 0.005 % eye drops 1 drp ophthalmic (eye) BEDTIME 12/30/21 05/03/24 Unknown History alendronate 70 mg tablet 70 mg PO QWEEK 09/15/23 05/03/24 Unknown History Physical Exam Vital Signs and Narrative: Vital Signs: Last Vital Signs Temp 98 F 05/06/24 13:42 Pulse 66 05/06/24 14:00 Resp 14 05/06/24 14:00 BP 153/58 H 05/06/24 14:00 Pulse Ox 96 05/06/24 14:00 O2 Del Method Room Air 05/06/24 14:00 BMI result Body Mass Index 16.4 General: AO X 3, no acute distress Resp: CTA bilateral, no accessory muscles used CVS: S1,S2,RRR GI: soft, non tender, non distended Neuro: motor grossly intact, alert Psych: appropriate affect, appropriate insight Results Labs 05/06/24 11:57 05/06/24 11:57 Labs: Laboratory Results - last 24 hr 05/06/24 05/06/24 11:43 11:57 MCV 93.1 MCH 31.1 MCHC 33.4 RDW 14.0 Plt Count 228 D MPV 11.1 Immature Gran % (Auto) 2.0 H Neut % (Auto) 64.5 Lymph % (Auto) 25.1 [place] % (Auto) 7.3 Eos % (Auto) 0.8 Baso % (Auto) 0.3 Lymph # (Auto) 1.5 [place] # (Auto) 0.5 Eos # (Auto) 0.1 Baso # (Auto) 0.0 Abs Immat Gran (auto) 0.12 H Absolute Neuts (auto) 4.0 Absolute Nucleated RBC 0.000 Nucleated RBC % (auto) 0.0 PT 10.9 L INR 0.9 APTT 25.2 L Anion Gap 13 Estim Creat Clear Calc 28.5 Estimated GFR 54 POC Glucose 155 H Random Glucose 165 H Calcium 10.0 D Troponin I High Sens 3.1 Triglycerides 75 Cholesterol 149 LDL Cholesterol, Calc 70 HDL Cholesterol 64 Imaging Radiologist's Impressions: Impressions Head CT 05/06/24 11:31 IMPRESSION: 1. No large territorial infarct or acute intracranial hemorrhage. 2. No CT evidence of acute intracranial injury. New trace left parietal subgaleal scalp hematoma/contusion. 3. No evidence of acute traumatic injury in the cervical spine. 4. Partially mineralized lesion within the ventral spinal canal at C3-C4 may reflect mineralization of extruded disc material however an ossified meningioma may have a similar appearance and would be better differentiated on contrast-enhanced MRI of the cervical spine. Stable apparent moderate spinal canal stenosis with mass effect along the cervical cord at this level. Impression 1 was discussed with Gold Sandoval at 12:23 PM on 05/06/2024 and it was ascertained that the content and urgency of the report was understood at the time of direct communication. Electronically signed by: Kimmy Brady MD 05/06/2024 12:24 PM EDT RP Cervical Spine CT 05/06/24 11:35 IMPRESSION: 1. No large territorial infarct or acute intracranial hemorrhage. 2. No CT evidence of acute intracranial injury. New trace left parietal subgaleal scalp hematoma/contusion. 3. No evidence of acute traumatic injury in the cervical spine. 4. Partially mineralized lesion within the ventral spinal canal at C3-C4 may reflect mineralization of extruded disc material however an ossified meningioma may have a similar appearance and would be better differentiated on contrast-enhanced MRI of the cervical spine. Stable apparent moderate spinal canal stenosis with mass effect along the cervical cord at this level. Impression 1 was discussed with Gold Sandoval at 12:23 PM on 05/06/2024 and it was ascertained that the content and urgency of the report was understood at the time of direct communication. Electronically signed by: Kimmy Brady MD 05/06/2024 12:24 PM EDT RP Ribs X-Ray 05/06/24 13:28 IMPRESSION: 1. No acute fractures are identified. 2. Chronic interstitial lung disease. Electronically signed by: Felix Domínguez MD 05/06/2024 03:01 PM EDT RP Assessment and Plan (1) Seizure: Status: Acute Plan 84F PMH epilepsy, sick sinus syndrome status post pacer, diabetes, osteoporosis, presented with loss of consciousness LOC due to seizure due to non compliance keppra 750mg bid check level seizure precautions dm hold metformin insuliln sliding scale dvt prophylaxis - lovenox full code Quality Stroke Does the patient have a stroke diagnosis?: No VTE Prior VTE?: No VTE Risk Level:: Medical - moderate - high VTE Device Contraindication: Treatment Not Indicated VTE Drug Contraindication: N/A - Med Ordered
--- NOTE | 2024-05-06 16:22 | PHA.MEDREC ---
Addendum entered by Egdard Meyers [facility] 05/06/24 16:28: Son is unaware last time she took her medications, pt could not answer. Pt takes omeprazole at bedtime for GERD, which is always when she had GERD symtpoms. Original Note: Pharmacy Consult ? Medication Reconciliation Pharmacy has completed the medication reconciliation. Spoke with family at bedtime. Son had all home medications with him, and confirmed all medications. Patient takes alendronate every Monday, and takes ferrous sulfate daily except on Monday due to aledronate.
[2024-05-06] MEDS: 0.9 % Sodium Chloride Flush 3 ML SYRINGE IVFLUSH ×2 (17:44→20:47)
[2024-05-06 17:49] VITALS: BP 121/50; PULSE 66; RESP 18; TEMP 36.6; O2SAT 97
[2024-05-06 17:56] LABS: Glucose, Whole Blood 116 mg/dL (60-115)
[2024-05-06 18:38] VITALS: BMI 18.4
[2024-05-06 18:56] LABS: Glucose, Whole Blood 103 mg/dL (60-115)
[2024-05-06 19:00] VITALS: BP 138/63; PULSE 63; RESP 16; TEMP 36.9; O2SAT 95
[2024-05-06] MEDS: levETIRAcetam 250 MG TABLET 750 MG PO (20:47)
[2024-05-06 20:54] LABS: Glucose, Whole Blood 129 mg/dL (60-115)
[2024-05-06 23:40] VITALS: BP 122/68; PULSE 63; RESP 18; TEMP 36.4; O2SAT 99
[2024-05-07 01:30] LABS: ~PT, ~INR - Anti Coag Clinic 0.9 (0.9-1.1)
[2024-05-07] MEDS: levETIRAcetam 750 MG in 0.9 % Sodium Chloride 100 ML 430 MG IV (02:42)
[2024-05-07 03:50] VITALS: BP 116/66; PULSE 63; RESP 18; TEMP 36.6; O2SAT 99
[2024-05-07 07:00] LABS: Hematocrit 29.3 % (37.0-47.0); Hemoglobin 9.9 g/dl (12.0-16.0); Mean Corpuscular HGB Conc 33.8 g/dl (31.0-35.0); Mean Corpuscular Hemoglobin 31.3 pg (27.0-33.0); Mean Corpuscular Volume 92.7 fL (80.0-98.0); Mean Platelet Volume 10.8 fL (9.4-12.3); Platelet Count 198 X10*3/uL (160-400); Red Blood Count 3.16 X10*6/uL (4.20-5.50); Red Cell Distribution Width 13.8 % (11.0-16.0); White Blood Count 5.4 X10*3/uL (4.8-10.8)
[2024-05-07 07:20] LABS: Anion Gap 13 (12-20); Blood Urea Nitrogen 13 mg/dL (9-16); Calcium 9.3 mg/dL (8.4-10.2); Carbon Dioxide 24 mmol/L (22-29); Chloride 108 mmol/L (96-108); Estimated Glomerular Filt Rate > 60; Glucose Fasting 118 mg/dL (60-99); Potassium 4.5 mmol/L (3.3-5.1); Sodium 140 mmol/L (135-145)
[2024-05-07 07:29] LABS: Glucose, Whole Blood 116 mg/dL (60-115)
[2024-05-07 07:30] VITALS: BP 130/62; PULSE 65; RESP 16; TEMP 36.4; O2SAT 98
[2024-05-07] MEDS: guaiFENesin 200 MG/10 ML 10 ML LIQUID PO (07:46)
[2024-05-07] MEDS: Enoxaparin Sodium 40 MG/0.4 ML SYRINGE SUBCUT (07:46)
[2024-05-07] MEDS: levETIRAcetam 250 MG TABLET 750 MG PO (07:46)
[2024-05-07] MEDS: 0.9 % Sodium Chloride Flush 3 ML SYRINGE IVFLUSH (07:48)
[2024-05-07] MEDS: Acetaminophen 325 MG TABLET 650 MG PO (07:59)
--- NOTE | 2024-05-07 09:47 | MHC.CM.PN ---
Addendum entered by Anali Rey RN 05/07/24 11:21: CM MET W/SON HCP JEVON OUTSIDE OF PT'S ROOM, JEVON W/COPIES OF HCP/POA HOWEVER AWARE CM FOUND DOCUMENTS IN OLD RECORDS, [place] REVIEWED AND PT MEDICALLY CLEARED FOR DC HOME W/RESUMP OF FAMILY SUPPORT. Original Note: [place] 05/07/24, EMR REVIEWED PT W/LOC AND POSSIBLE SEIZURE D/T NONCOMPLAINCE W/KEPRA, CM MET W/PT WHO REPORTS SHE LIVES W/2 ADULT SONS, PT REPORTS SHE IS INDEP AND DENIES USE OF DME/SERVICES, PT REQUESTS CM COME BACK WHEN HER SON COMES IN BETWEEN 10:30-11AM SHE IS UNSURE IF SHE HAS A HCP. PCP ON FILE VERIFIED
[2024-05-07 10:00] LABS: Influenza A PCR NEGATIVE (Negative); Influenza B PCR NEGATIVE (Negative); Resp Syncy Virus RNA Qual PCR NEGATIVE (Negative); SARS COV2 PCR INHOUSE POSITIVE (Negative)
[2024-05-07 10:31] VITALS: BMI 23.2
--- NOTE | 2024-05-07 10:31 | MHC.CLN ---
REVIEWED PAST MEDICAL HX REVEALS HT USED 4'8 ADJUSTED HT IN MEDICAL RECORD (NOT 5'3 ) ADJUSTED BMI 23.2 WNL CURRENT WT 47KG PREVIOUS 41.3KG PT WITH 14% NONSIGNIFICANT WT GAIN X 1 YEAR DIET APPROPRIATE MONITOR PO INTAKE RD TO FOLLOW WEEKLY
--- NOTE | 2024-05-07 10:38 | P.DS_ITS ---
DS: Providers Provider Date of Service: 05/07/24 Date of admission: 05/06/24 15:32 Date of discharge: 05/07/24 Primary care physician: Cuate Oscar MD DS: Diagnosis Discharge Diagnosis (1) Seizure: Status: Acute DS: Summary Hospital Course Hospital Course: from initial hpi: 84F PMH epilepsy, sick sinus syndrome status post pacer, diabetes, osteoporosis, presented with loss of consciousness. Patient does not remember event. Her sister reports seeing her on the floor and noted some convulsions. Patient's granddaughter found her on the floor incontinent of urine. Patient was postictal for some time before returning to baseline mental status. She did have a mild head strike, trauma workup in the ED was unremarkable. Patient reports not being consistent in taking her Keppra. hospital course: Patient was admitted for seizure due to noncompliance. Was restarted on Keppra 750 mg b.i.d. had no further seizures, importance of compliance with medications was stressed. Due to cough was tested for COVID and tested positive. Patient is not hypoxic minimally symptomatic, recommend symptomatic treatment only at this time. For diabetes was given insulin sliding scale and can continue metformin at home. Patient is medically stable will be discharged home. Time Attestation Discharge Coordination Time (in mins): 33 Quality: Safe Use of Opioids Does Pt have an Active Cancer Diagnosis on the Problem List?: No Quality: Stroke Does the patient have a stroke diagnosis?: No Physical Exam Vital Signs: Vital Signs: Last Vital Signs Temp 97.5 F 05/07/24 07:30 Pulse 65 05/07/24 07:30 Resp 16 05/07/24 07:30 BP 130/62 05/07/24 07:30 Pulse Ox 98 05/07/24 07:30 O2 Del Method Room Air 05/07/24 07:30 BMI result Body Mass Index 23.2 Awake alert in not acute distress Const: General: cooperative, comfortable, no acute distress, well developed, alert and awake Nutritional Appearance: well nourished Orientation/consciousness: patient oriented x3 Limitations: no limitations HEENT: Head: Yes normal to inspection General nose exam: Normal nasal mucous membranes and turbinates present Face and sinus: Yes normal facial exam Mouth: Normal oral and palatal mucosa present Neck: Neck: Yes normal visual inspection, Yes full ROM and Yes no lymphadenopathy Thyroid: Thyroid normal Chest: Chest palpation & inspection: normal inspection of the chest Resp: Effort & Inspection: normal respiratory effort Auscultation: clear to auscultation bilaterally Cardio: Jugular venous distension: no JVD Rate: regular rate Rhythm: regular rhythm GI: Inspection: Yes normal to inspection Palpation (GI): Soft to palpation Percussion: Yes normal to percussion Skin: General skin exam: no rashes or lesions noted and elasticity normal Neuro: General: patient oriented x3 Cranial nerves: Yes CN's II-XII intact bilaterally Cognition (Neuro): normal cognition Motor exam (neuro): 5/5 motor strength present throughout DS: Data Data Completed and Pending Labs on day of discharge: Laboratory Results - last 24 hr 05/06/24 05/06/24 05/06/24 11:43 11:57 12:19 WBC 6.1 RBC 3.79 L Hgb 11.8 L Hct 35.3 L MCV 93.1 MCH 31.1 MCHC 33.4 RDW 14.0 Plt Count 228 D MPV 11.1 Immature Gran % (Auto) 2.0 H Neut % (Auto) 64.5 Lymph % (Auto) 25.1 [place] % (Auto) 7.3 Eos % (Auto) 0.8 Baso % (Auto) 0.3 Lymph # (Auto) 1.5 [place] # (Auto) 0.5 Eos # (Auto) 0.1 Baso # (Auto) 0.0 Abs Immat Gran (auto) 0.12 H Absolute Neuts (auto) 4.0 Absolute Nucleated RBC 0.000 Nucleated RBC % (auto) 0.0 PT 10.9 L Whole Blood PT 11.0 L INR 0.9 Whole Blood INR 0.9 APTT 25.2 L Sodium 138 Potassium 4.5 Chloride 105 Carbon Dioxide 25 Anion Gap 13 BUN 14 Creatinine 0.99 Estim Creat Clear Calc 28.5 Estimated GFR 54 POC Glucose 155 H Random Glucose 165 H Fasting Glucose Calcium 10.0 D Troponin I High Sens 3.1 Triglycerides 75 Cholesterol 149 LDL Cholesterol, Calc 70 HDL Cholesterol 64 Influenza Type A (PCR) Influenza Type B (PCR) RSV RNA Qual (PCR) SARS-CoV-2 RNA (RT-PCR) 05/06/24 05/06/24 05/06/24 17:52 18:48 20:49 WBC RBC Hgb Hct MCV MCH MCHC RDW Plt Count MPV Immature Gran % (Auto) Neut % (Auto) Lymph % (Auto) [place] % (Auto) Eos % (Auto) Baso % (Auto) Lymph # (Auto) [place] # (Auto) Eos # (Auto) Baso # (Auto) Abs Immat Gran (auto) Absolute Neuts (auto) Absolute Nucleated RBC Nucleated RBC % (auto) PT Whole Blood PT INR Whole Blood INR APTT Sodium Potassium Chloride Carbon Dioxide Anion Gap BUN Creatinine Estim Creat Clear Calc Estimated GFR POC Glucose 116 H 103 129 H Random Glucose Fasting Glucose Calcium Troponin I High Sens Triglycerides Cholesterol LDL Cholesterol, Calc HDL Cholesterol Influenza Type A (PCR) Influenza Type B (PCR) RSV RNA Qual (PCR) SARS-CoV-2 RNA (RT-PCR) 05/07/24 05/07/24 05/07/24 06:49 07:24 08:00 WBC 5.4 RBC 3.16 L Hgb 9.9 L Hct 29.3 L MCV 92.7 MCH 31.3 MCHC 33.8 RDW 13.8 Plt Count 198 MPV 10.8 Immature Gran % (Auto) Neut % (Auto) Lymph % (Auto) [place] % (Auto) Eos % (Auto) Baso % (Auto) Lymph # (Auto) [place] # (Auto) Eos # (Auto) Baso # (Auto) Abs Immat Gran (auto) Absolute Neuts (auto) Absolute Nucleated RBC 0.000 Nucleated RBC % (auto) 0.0 PT Whole Blood PT INR Whole Blood INR APTT Sodium 140 Potassium 4.5 Chloride 108 Carbon Dioxide 24 Anion Gap 13 BUN 13 Creatinine 0.81 Estim Creat Clear Calc 39.0 Estimated GFR > 60 POC Glucose 116 H Random Glucose Fasting Glucose 118 H Calcium 9.3 D Troponin I High Sens Triglycerides Cholesterol LDL Cholesterol, Calc HDL Cholesterol Influenza Type A (PCR) NEGATIVE Influenza Type B (PCR) NEGATIVE RSV RNA Qual (PCR) NEGATIVE SARS-CoV-2 RNA (RT-PCR) POSITIVE A Discharge Plan Discharge Anticipated Discharge Date/Time: 05/07/24 10:30 Patient Disposition: Home, Self-Care Discharge Diagnosis: seizure, covid Referrals: Cuate Oscar MD [Primary Care Provider] - 1 Week Discharge Medications: Continued sennosides [senna] 8.6 mg tablet 17.2 mg PO BID PRN (Reason: Constipation) 90 Days Qty: 360 1RF atorvastatin 40 mg tablet 40 mg PO BEDTIME 90 Days Qty: 90 1RF gabapentin 300 mg capsule 300 mg PO BEDTIME 30 Days Qty: 30 3RF levetiracetam 750 mg tablet 750 mg PO BID 30 Days Qty: 60 3RF cholecalciferol (vitamin D3) [Vitamin D3] 50 mcg (2,000 unit) tablet 50 mcg PO BID Qty: 60 1RF ferrous sulfate 325 mg (65 mg iron) tablet 325 mg PO SuTuWeThFrSa@0900 docusate sodium 100 mg capsule 100 mg PO BID PRN (Reason: for constipation) omeprazole 20 mg capsule,delayed release(DR/EC) 20 mg PO BEDTIME acetaminophen 325 mg Tablet 650 mg PO Q6H PRN (Reason: pain or fever) alendronate 70 mg tablet 70 mg PO MO metformin 500 mg tablet 500 mg PO BID 90 Days Qty: 180 3RF cyanocobalamin (vitamin B-12) 1,000 mcg capsule 1,000 mcg PO DAILY Qty: 90 1RF latanoprost 0.005 % drops 1 drp ophthalmic (eye) BEDTIME bisacodyl [Dulcolax (bisacodyl)] 5 mg tablet,delayed release (DR/EC) 10 mg PO BEDTIME PRN (Reason: constipation) 30 Days Qty: 10 1RF Rx Instructions: to use if no bowel movement for 2-3 days hydrocortisone 2.5 % cream with perineal applicator 1 appl [place] BID-QID PRN (Reason: hemorrhoids) 15 Days Qty: 30 2RF Discharge Orders: Discharge Order (Routine); Ordered 05/07/24 Ordered By: Price Thompson Diet: Advance to usual diet Activity on Discharge: As tolerated Stand Alone Forms: Patient Portal Discharge page Print Language: Uzbek Care Plan Goals: Avoid seizures Health Concerns: seizures Plan of Treatment: compliance with keppra is essential to avoid seizures Assessment: see above
[2024-05-07 11:20] LABS: Glucose, Whole Blood 130 mg/dL (60-115)
[2024-05-07 11:48] VITALS: BP 116/55; PULSE 61; RESP 16; TEMP 36.7; O2SAT 98
== END 2024-05-07 12:19 | disposition home or self-care (01) ==
LOC: HO.ED 15:14 → HO.EDOVER 15:36 → HO.IMC 16:23
PROVIDERS: Internal Medicine; Admitting Provider Internal Medicine; Emergency Provider Emergency Medicine; PCP Internal Medicine; Visit Provider Internal Medicine
DX: G40.909 Epilepsy, unspecified, not intractable, without status epilepticus (principal); U07.1 COVID-19; R55 Syncope and collapse; R05.9 Cough, unspecified; R41.0 Disorientation, unspecified; K21.9 Gastro-esophageal reflux disease without esophagitis; E11.9 Type 2 diabetes mellitus without complications; F03.90 Unspecified dementia, unspecified severity, without behavioral disturbance, psychotic disturbance, mood disturbance, and anxiety; I49.5 Sick sinus syndrome; Z79.899 Other long term (current) drug therapy; Z91.148 Patient's other noncompliance with medication regimen for other reason; Z91.81 History of falling
CPT/HCPCS: 0241U; 36415; 70450; 71101; 72125; 80048; 80061; 80177; 82947; 84484; 85025; 85027; 85610; 85730; 93005; 96365; 96366; 96372; 99222; 99285; J1650; J1953

== ENCOUNTER → 2024-05-06 15:32 | Outpatient (BNV) | payer MEDICARE, SELFPAY | PROVIDERS: Admitting Provider Internal Medicine; Emergency Provider Emergency Medicine; PCP Internal Medicine; Visit Provider Internal Medicine | DX: R56.9 Unspecified convulsions (principal) | CPT/HCPCS: 99222; 99239 ==

== ENCOUNTER 2024-05-20 10:19 | Emergency (ER) | payer MEDICARE, SELFPAY ==
--- NOTE | ~2024-05-20 | CT_ITS ---
EXAMINATION: CT HEAD WITHOUT CONTRAST CLINICAL INFORMATION: Seizure. COMPARISON: Head CTs dating between May 06, 2024 and April 28, 2013. More remote prior head CTs are not currently available. TECHNIQUE: Contiguous axial imaging was performed from the skull base to vertex without intravenous administration of contrast. This CT examination was performed using dose optimization techniques as appropriate, variously including the following: *Automated exposure control *Adjustment of mA and/or kV according to patient size (this includes techniques or standardized protocols for targeted exams where dose is matched to indication/reason for exam; i.e. extremities or head) *Use of iterative reconstruction technique DLP: 551 mGy-cm FINDINGS: No significant radiographic change compared with May 06, 2024. No intracranial hemorrhage, large infarction, or mass lesion is seen. Bilateral periventricular white matter hypodensity and age-appropriate cortical atrophy. No extra-axial collection is appreciated. The ventricles are normal in size and configuration without evidence of hydrocephalus. The visualized paranasal sinuses and mastoid air cells are clear. Bilateral lens extractions. CT/CT head/brain wo IV con IMPRESSION: No acute intracranial finding. Electronically signed by: Jef Alvarez MD 05/20/2024 12:47 PM EDT
--- NOTE | ~2024-05-20 | XR_ITS ---
EXAMINATION: XR RIBS, LEFT CLINICAL INFORMATION: Seizure and left-sided pain COMPARISON: Chest and left RIBS 10/06/2023 TECHNIQUE: Single view chest plus 3 views of the left ribs were obtained. FINDINGS: Again seen is a dual lead left chest wall pacemaker with one lead high in the right atrium and the other in the right ventricle, unchanged in position. Coarse subpleural reticular nodular markings are again seen consistent with interstitial lung disease. There is a new rib fracture of the anterolateral left seventh rib seen on one view only. Osseous structures are otherwise unremarkable. The remainder of the ribs are intact. No pneumothorax. No additional fractures are seen. Surgical clips are seen at the level of the GE junction. XR/XR ribs LT min 3V w CXR1V IMPRESSION: 1. New left seventh rib fracture. 2. Other incidental findings as described above. Electronically signed by: Freeman Lawler MD 05/20/2024 12:29 PM EDT
[2024-05-20 10:42] VITALS: BP 136/72; PULSE 90; O2SAT 100
[2024-05-20 11:00] VITALS: BP 137/52; PULSE 61; RESP 15; TEMP 36.6; O2SAT 100; BMI 19.1
--- NOTE | 2024-05-20 11:31 | ECG_ITS ---
Test Reason : SEIZURE Blood Pressure : / mmHG Vent. Rate : 061 BPM Atrial Rate : 061 BPM P-R Int : 168 ms QRS Dur : 068 ms QT Int : 396 ms P-R-T Axes : -43 057 032 degrees QTc Int : 398 ms Atrial-paced rhythm Abnormal ECG When compared with ECG of 06-MAY-2024 11:54, Electronic atrial pacemaker has replaced Sinus rhythm Referred By: Tona Hoffmann Electronically Signed By:ADELINA SHAW
--- NOTE | 2024-05-20 11:36 | ED.SEIZURE ---
HPI - Seizure General Chief Complaint: Seizure Stated Complaint: WIT SEIZURE Time Seen by Provider: 05/20/24 11:11 Source: patient, family, EMS and supervisor [employer] Mode of arrival: EMS Limitations: no limitations History of Present Illness ED Provider: DR. Hoffmann HPI Narrative: 84-year-old female history of seizure on Keppra 750 mg b.i.d. son not sure if she is compliant with her medication daily came in today after having a witnessed seizure by family lasted for about 5 minutes patient did not sustain any fall or injury, complaining of left-sided chest pain which worse with movement or taking a deep breath or touching her left side of the chest. Patient has been complaining of generalized body ache and dizziness for more than a month. Has been eating and drinking okay. no coughing, no dysuria, no frequency urination, no blood in the urine. Related Data Home Medications ?Medication ?Instructions ?Recorded ?Confirmed latanoprost 0.005 % eye drops 1 drp ophthalmic (eye) BEDTIME 12/30/21 05/08/24 alendronate 70 mg tablet 70 mg PO MO 09/15/23 05/08/24 acetaminophen 325 mg tablet 650 mg PO Q6H PRN pain or fever 05/06/24 05/08/24 docusate sodium 100 mg capsule 100 mg PO BID PRN for constipation 05/06/24 05/08/24 ferrous sulfate 325 mg (65 mg 325 mg PO SuTuWeThFrSa@0900 05/06/24 05/08/24 iron) tablet omeprazole 20 mg capsule,delayed 20 mg PO BEDTIME 05/06/24 05/08/24 release Previous Rx's ?Medication ?Instructions ?Recorded bisacodyl 5 mg tablet,delayed 10 mg (2 x 5 mg) PO BEDTIME PRN 07/06/23 release (Dulcolax (bisacodyl)) constipation 30 days #10 tabs sennosides 8.6 mg tablet (senna) 17.2 mg (2 x 8.6 mg) PO BID PRN 11/06/23 Constipation 90 days #360 tabs atorvastatin 40 mg tablet 40 mg PO BEDTIME 90 days #90 tabs 12/08/23 gabapentin 300 mg capsule 300 mg PO BEDTIME 30 days #30 caps 02/06/24 cyanocobalamin (vitamin B-12) 1,000 mcg PO DAILY #90 caps 02/23/24 1,000 mcg capsule metformin 500 mg tablet 500 mg PO BID 90 days #180 tabs 02/23/24 levetiracetam 750 mg tablet 750 mg PO BID 30 days #60 tabs 04/17/24 cholecalciferol (vitamin D3) 50 50 mcg PO BID #60 tabs 04/29/24 mcg (2,000 unit) tablet (Vitamin D3) hydrocortisone 2.5 % topical cream 1 appl [place] Q8-12H #30 grams 05/08/24 with perineal applicator Allergies Allergy/AdvReac Type Severity Reaction Status Date / Time Penicillins Allergy Intermediate RASH Verified 05/20/24 11:07 Review of Systems Review of Systems: all other systems are reviewed and are negative Constitutional: Reports as per HPI and Reports no additional constitutional complaints Eyes: Reports as per HPI and Reports no additional eye complaints Reports system reviewed and no additional complaints, except as documented Cardiovascular: Reports as per HPI and Reports no additional cardiovascular complaints Respiratory: Reports as per HPI and Reports no additional respiratory complaints Gastrointestinal: Reports as per HPI and Reports no additional gastrointestinal complaints Genitourinary: Reports no additional female genitourinary complaints Musculoskeletal: Reports no additional musculoskeletal complaints Skin/Breast: Reports system reviewed and no additional complaints, except as docu Psychiatric: Reports no additional psychiatric complaints Endocrine: Reports no additional endocrine complaints Hematologic/Lymphatic: Reports no additional hematologic/lymphatic complaints Allergic/Immunologic: Reports no additional allergic/immunologic complaints Reports system reviewed and no additional complaints, except as documented and Reports Abnormal speech present [facility] Past Medical History Medical History Chest pressure Osteoporosis (~2007) Tubular adenoma of colon (~2019) Post-menopausal Left arm swelling Swelling of lymph node Cardiac pacemaker in situ (~2018) Sick sinus syndrome Overweight (BMI 25.0-29.9) Insomnia Degenerative joint disease Nocturnal leg cramps Dementia without behavioral disturbance GERD (gastroesophageal reflux disease) Constipation Vitamin D deficiency Neuropathy Vitamin B12 deficiency Epilepsy (~1998) Anemia Sinus bradycardia Pure hypercholesterolemia Diabetes mellitus Surgical History History of endoscopy History of ankle surgery (~2011) History of partial gastrectomy History of colonoscopy History of pacemaker (~2018) History of hysterectomy Family History Family History Father Medical history unknown Mother No problems noted. Daughter No problems noted. Son No problems noted. Other Substance use disorder Social History Social History Household Members: None Housing: House Are you a primary continuum of care manager to a significant other at home: No Do you presently have visiting nurse or other home services: No Alcohol intake: never Patient Tobacco Use Status: Former Tobacco user Tobacco use type: Cigarette Smoked in Last 30 Days: No e-Cigarette/Vaping Use: Never Used Second Hand Smoke Exposure: No Use of substances other than those prescribed or required for medical reasons: No Advance Directives: Yes Advance Directives on File: Yes Advance Directives Date on File: 05/06/24 Do you have a plan to hurt others: No Plan service: No Current occupational status: retired Current occupation: [employer] Cognitive needs: No Hearing needs: No Vision needs: Yes Physical Exam Vital Signs: Vital Signs: Last Vital Signs Temp 98.3 F 05/20/24 15:21 Pulse 63 05/20/24 15:21 Resp 12 05/20/24 15:21 BP 128/59 L 05/20/24 15:21 Pulse Ox 98 05/20/24 15:21 O2 Del Method Room Air 05/20/24 15:21 BMI result Body Mass Index 19.1 Vital signs have been reviewed and appear to be correct. Blood pressure elevated. Heart rate normal. Respiratory rate normal. Temperature normal. Oxygen saturation normal. Appearance: Alert. Oriented X3. No acute distress. Head: Normal external exam. Normocephalic. Atraumatic. No Jacobsen signs noted. No raccoon eyes noted Eyes: PERRLA. EOMI. Conjunctiva and sclera normal. Eyelids normal. ENT: TM's Normal. Pharynx normal. Uvula midline. Moist mucous membranes. No trismus noted. No drooling noted. No muffled voice noted. Neck: Normal inspection. Neck supple. FROM. No adenopathy. Thyroid Normal. No meningeal signs. No neck mass noted. CVS: Normal heart rate and rhythm. Heart sound normal. No murmurs noted. Pulses normal throughout. Respiratory: No respiratory distress. Painless inspiration. Breath sounds normal. No wheezes/rales/rhonchi noted. Left chest wall reproducible tenderness, No accessory muscle usage noted or decreased air movement noted. Abdomen: Soft and nontender. Bowel sounds normal in all 4 quadrants. No distention noted. No organomegaly noted. No visible injury noted. Back: No CVA tenderness. Full range of motion noted. Skin: Skin warm and dry. Normal skin color. Normal skin turgor. No rashes/lesions/lacerations noted. Extremities: No lower extremity edema. Extremities exhibit normal range of motion. Extremities nontender. Neuro: Oriented X 3. Cranial nerve exam: II-XII are grossly intact No motor deficit. No sensory deficit. Reflexes normal. Course Reevaluation(s) Reevaluation #1: 84-year-old female with known history of seizure on Keppra for antiseizure medications, CT /labs are unremarkable. I spoke with the son the importance of taking her seizure medication in order to prevent further episodes of seizures Keppra level is pending not expected to have the result today since it is outside test. Patient/ family fully understand my instruction will discharge to follow-up with PCP. Time: 15:45 Medications Administered Discontinued Medications Generic Name Dose Route Start Last Admin Trade Name Freq PRN Reason Stop Dose Admin Sodium Chloride 1,000 mls @ 999 mls/hr 05/20/24 11:30 05/20/24 12:23 Ns IV 05/20/24 12:30 999 mls/hr .Q1H1M ONE Administration Medical Decision Making Differential Diagnosis Differential Diagnoses: The differential diagnosis associated with the presentation includes ( seizure episode, electrolyte derangement, severe anemia UTI, pneumonia, rib fracture, lung contusion, pleural effusion, Keppra subtherapeutic level) Admission/Observation Consideration of admission/observation: Escalation of care including admission/observation considered Lab Data MDM Lab Attestation statement: I reviewed the patient's lab results. 05/20/24 12:46 05/20/24 12:46 Labs: Lab Results 05/20/24 05/20/24 Range/Units 12:46 15:20 WBC 5.6 (4.8-10.8) X10*3/uL RBC 3.36 L (4.20-5.50) X10*6/uL Hgb 10.5 L (12.0-16.0) g/dl Hct 31.9 L (37.0-47.0) % MCV 94.9 (80.0-98.0) fL MCH 31.3 (27.0-33.0) pg MCHC 32.9 (31.0-35.0) g/dl RDW 13.9 (11.0-16.0) % Plt Count 234 (160-400) X10*3/uL MPV 10.7 (9.4-12.3) fL Immature Gran % (Auto) 0.2 (0.0-0.4) % Neut % (Auto) 32.0 L (45-73) % Lymph % (Auto) 55.4 H (20-40) % [place] % (Auto) 10.8 (2-11) % Eos % (Auto) 1.2 (0-4) % Baso % (Auto) 0.4 (0-2) % Lymph # (Auto) 3.1 (1.2-4.9) X10*3/uL [place] # (Auto) 0.6 (0.1-1.2) X10*3/uL Eos # (Auto) 0.1 (0.0-0.4) X10*3/uL Baso # (Auto) 0.0 (0.0-0.2) X10*3/uL Abs Immat Gran (auto) 0.01 (0.00-0.03) X10*3/uL Absolute Neuts (auto) 1.8 L (2.0-8.3) x10*3/uL Absolute Nucleated RBC 0.000 (0.0-0.012) X10*3/uL Nucleated RBC % (auto) 0.0 (0.0-0.2) /100WBC Sodium 143 (135-145) mmol/L Potassium 4.1 (3.3-5.1) mmol/L Chloride 116 H (96-108) mmol/L Carbon Dioxide 19 L (22-29) mmol/L Anion Gap 12 (12-20) BUN 15 (9-16) mg/dL Creatinine 0.91 (0.5-1.4) mg/dL Estim Creat Clear Calc 26.8 Estimated GFR 59 Random Glucose 66 (60-115) mg/dL Calcium 8.2 L D (8.4-10.2) mg/dL Total Bilirubin 0.4 (0.0-1.0) mg/dL Direct Bilirubin 0.2 (0.0-0.5) mg/dL AST 20 (5-31) U/L ALT 17 (0-31) U/L Alkaline Phosphatase 68 (39-117) U/L Troponin I High Sens < 2.7 (<3.5-17.0) ng/L Total Protein 5.9 L (6.5-8.0) g/dL Albumin 3.4 L (3.5-5.0) g/dL Lipase 21 (8-78) U/L Urine Color Yellow Urine Appearance Clear Urine pH 5.5 (5.0-9.0) Ur Specific [place] 1.015 (1.005-1.025) Urine Protein Negative (Neg-Trace) mg/dL Urine Glucose (UA) Negative (Negative) mg/dL Urine Ketones Negative (Negative) mg/dL Urine Blood Negative (Negative) Urine Nitrite Negative (Negative) Ur Leukocyte Esterase Large (3+) H (Negative) Independent Interpretation I performed an independent interpretation of an: Plain X-Ray ( Chest:Again seen is a dual lead left chest wall pacemaker with one lead high in the right atrium and the other in the right ventricle, unchanged in position. Coarse subpleural reticular nodular markings are again seen consistent with interstitial lung disease. There is a new rib fracture of th) and CT Scan ( head: No acute intracranial findings.) Radiology Impression Discussion of test interpretation with radiology: I have reviewed the radiologist's reading. Discharge Plan Discharge Clinical Impression: Seizure, Closed fracture of seven ribs of left side Patient Disposition: Home, Self-Care Instructions: Rib Fracture (ED), Recurrent Seizures in Adults (ED) Prescriptions: No Action sennosides [senna] 8.6 mg tablet 17.2 mg PO BID PRN (Reason: Constipation) 90 Days Qty: 360 1RF atorvastatin 40 mg tablet 40 mg PO BEDTIME 90 Days Qty: 90 1RF gabapentin 300 mg capsule 300 mg PO BEDTIME 30 Days Qty: 30 3RF levetiracetam 750 mg tablet 750 mg PO BID 30 Days Qty: 60 3RF cholecalciferol (vitamin D3) [Vitamin D3] 50 mcg (2,000 unit) tablet 50 mcg PO BID Qty: 60 1RF hydrocortisone 2.5 % cream with perineal applicator 1 appl [place] Q8-12H Qty: 30 2RF ferrous sulfate 325 mg (65 mg iron) tablet 325 mg PO SuTuWeThFrSa@0900 docusate sodium 100 mg capsule 100 mg PO BID PRN (Reason: for constipation) omeprazole 20 mg capsule,delayed release(DR/EC) 20 mg PO BEDTIME acetaminophen 325 mg Tablet 650 mg PO Q6H PRN (Reason: pain or fever) alendronate 70 mg tablet 70 mg PO MO metformin 500 mg tablet 500 mg PO BID 90 Days Qty: 180 3RF cyanocobalamin (vitamin B-12) 1,000 mcg capsule 1,000 mcg PO DAILY Qty: 90 1RF latanoprost 0.005 % drops 1 drp ophthalmic (eye) BEDTIME bisacodyl [Dulcolax (bisacodyl)] 5 mg tablet,delayed release (DR/EC) 10 mg PO BEDTIME PRN (Reason: constipation) 30 Days Qty: 10 1RF Rx Instructions: to use if no bowel movement for 2-3 days Print Language: Romansh
--- NOTE | 2024-05-20 11:50 | MHC.EDTECH ---
Patient changed over, blood work and vitals completed, and rest comfortably in her bed and call gómez within reach.
[2024-05-20 12:14] VITALS: BP 114/65; PULSE 82; RESP 13; O2SAT 100
[2024-05-20] MEDS: 0.9 % Sodium Chloride 1,000 ML 999 ML IV (12:23)
--- NOTE | 2024-05-20 12:24 | PC.NURSE ---
Pt comes to ED today for seizure activity. Pt with Hx of seizures and on Keppra. Per Pts family, Pt has been compliant with the assistance of family monitoring her meds. VSS, afebrile, A&Ox3 Family at bedside. Imagina taken, awaiting lab and EKG.
[2024-05-20 12:50] LABS: MANUAL DIFF FLAG NO
[2024-05-20 12:53] LABS: Basophils Percent Auto 0.4 % (0-2); Eosinophils Absolute Auto 0.1 X10*3/uL (0.0-0.4); Eosinophils Percent Auto 1.2 % (0-4); Hematocrit 31.9 % (37.0-47.0); Hemoglobin 10.5 g/dl (12.0-16.0); Imm Gran Abs Auto 0.01 X10*3/uL (0.00-0.03); Imm Gran Pct Auto 0.2 % (0.0-0.4); Lymphocytes Absolute Auto 3.1 X10*3/uL (1.2-4.9); Lymphocytes Percent Auto 55.4 % (20-40); Mean Corpuscular HGB Conc 32.9 g/dl (31.0-35.0); Mean Corpuscular Hemoglobin 31.3 pg (27.0-33.0); Mean Corpuscular Volume 94.9 fL (80.0-98.0); Mean Platelet Volume 10.7 fL (9.4-12.3); Monocytes Absolute Auto 0.6 X10*3/uL (0.1-1.2); Monocytes Percent Auto 10.8 % (2-11); Neutrophils Absolute Auto 1.8 x10*3/uL (2.0-8.3); Platelet Count 234 X10*3/uL (160-400); Red Blood Count 3.36 X10*6/uL (4.20-5.50); Red Cell Distribution Width 13.9 % (11.0-16.0); White Blood Count 5.6 X10*3/uL (4.8-10.8)
[2024-05-20 13:06] LABS: Alanine Aminotransferase 17 U/L (0-31); Albumin Level 3.4 g/dL (3.5-5.0); Alkaline Phosphatase 68 U/L (39-117); Anion Gap 12 (12-20); Aspartate Amino Transferase 20 U/L (5-31); Bilirubin Direct 0.2 mg/dL (0.0-0.5); Bilirubin Total 0.4 mg/dL (0.0-1.0); Blood Urea Nitrogen 15 mg/dL (9-16); Calcium 8.2 mg/dL (8.4-10.2); Carbon Dioxide 19 mmol/L (22-29); Chloride 116 mmol/L (96-108); Creatinine Clr Calc Pharmacy 26.8; Estimated Glomerular Filt Rate 59; Glucose Random 66 mg/dL (60-115); Lipase 21 U/L (8-78); Potassium 4.1 mmol/L (3.3-5.1); Sodium 143 mmol/L (135-145); Total Protein 5.9 g/dL (6.5-8.0)
[2024-05-20 13:14] LABS: Troponin-I High Sensitivity < 2.7 ng/L (<3.5-17.0)
[2024-05-20 15:21] VITALS: BP 128/59; PULSE 63; RESP 12; TEMP 36.8; O2SAT 98
[2024-05-20 15:33] LABS: Appearance Urine Clear; Color Urine Yellow; Glucose Urine UA Negative (Negative); Leukocyte Esterase Urine Large (3+) (Negative); Nitrite Urine Negative (Negative); PH 5.5 (5.0-9.0); Specific Gravity - Urine 1.015 (1.005-1.025); UMIC TRIGGER UACC YES; Urine Blood Negative (Negative); Urine Ketones Negative (Negative); Urine Protein Negative (Neg-Trace)
[2024-05-20 15:45] LABS: Bacteria Urine Trace (None Seen); RBC Urine 0-2 /HPF (0-2); UACC Culture Trigger YES
[2024-05-20 16:16] VITALS: BP 116/58; PULSE 59; RESP 14; O2SAT 98
[2024-05-20 16:17] VITALS: BP 116/58; PULSE 59; RESP 14; TEMP 36.6; O2SAT 98
[2024-05-23 20:18] LABS: Levetiracetam Keppra 96.5 mcg/mL (6.0-46.0)
== END 2024-05-20 16:34 | disposition home or self-care (01) ==
PROVIDERS: Emergency Provider Emergency Medicine
DX: R56.9 Unspecified convulsions (principal); S22.32XA Fracture of one rib, left side, initial encounter for closed fracture; W18.39XA Other fall on same level, initial encounter; R42 Dizziness and giddiness; E11.9 Type 2 diabetes mellitus without complications; E78.00 Pure hypercholesterolemia, unspecified; Z95.0 Presence of cardiac pacemaker; Y93.9 Activity, unspecified; Y92.019 Unspecified place in single-family (private) house as the place of occurrence of the external cause; Y99.9 Unspecified external cause status; Z87.891 Personal history of nicotine dependence
CPT/HCPCS: 36415; 70450; 71101; 80048; 80076; 80177; 81001; 83690; 84484; 85025; 87086; 93005; 96360; 96361; 99285

== ENCOUNTER → 2024-05-21 23:59 | Outpatient (BNV) | payer MEDICARE, SELFPAY ==
--- NOTE | 2024-05-22 15:45 | A.OFFVIS_ITS ---
Intake Visit Reasons: Remote device check- Medtr[employer] Allergies Penicillins Allergy (Intermediate, Verified 05/20/24 11:07) [facility] Medical History Chest pressure Osteoporosis (~2007) Tubular adenoma of colon (~2019) Post-menopausal Left arm swelling Swelling of lymph node Cardiac pacemaker in situ (~2018) Sick sinus syndrome Overweight (BMI 25.0-29.9) Insomnia Degenerative joint disease Nocturnal leg cramps Dementia without behavioral disturbance GERD (gastroesophageal reflux disease) Constipation Vitamin D deficiency Neuropathy Vitamin B12 deficiency Epilepsy (~1998) Anemia Sinus bradycardia Pure hypercholesterolemia Diabetes mellitus Surgical History History of endoscopy History of ankle surgery (~2011) History of partial gastrectomy History of colonoscopy History of pacemaker (~2018) History of hysterectomy Family History Father Medical history unknown Mother No problems noted. Daughter No problems noted. Son No problems noted. Other Substance use disorder Social History Household Members: None Housing: House Are you a primary care professional to a significant other at home: No Do you presently have visiting nurse or other home services: No Alcohol intake: never Patient Tobacco Use Status: Former Tobacco user Tobacco use type: Cigarette Smoked in Last 30 Days: No e-Cigarette/Vaping Use: Never Used Second Hand Smoke Exposure: No Use of substances other than those prescribed or required for medical reasons: No Advance Directives: Yes Advance Directives on File: Yes Advance Directives Date on File: 05/06/24 Do you have a plan to hurt others: No Plan service: No Current occupational status: retired 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 Pacemaker function is adequate [id number] Cardiac Device Interrogation, pacemaker Procedure code (CPT) selection complete Assessment & Plan Assessment & Plan (1) Cardiac pacemaker in situ: Onset Date: ~2018 Comment: (Medtronic DCPP - placed 12/2018 - pocket revision 10/2021) Code(s): Z95.0 - Presence of cardiac pacemaker Category: Medical Plan: See above Coding Level of Care Code Procedure Only Diagnoses Cardiac pacemaker in situ Z95.0 CPT Codes Cardiac Device Check - Cardiac Device 12: [id number] Cardiac Device Interrogation, pacemaker ([id number])
== END ==
PROVIDERS: Visit Provider Internal Medicine Cardiovascular Disease
DX: Z45.018 Encounter for adjustment and management of other part of cardiac pacemaker (principal)
CPT/HCPCS: 93294

== ENCOUNTER 2024-06-06 12:51 | Outpatient (AMB) | payer MEDICARE, SELFPAY ==
--- NOTE | 2024-06-06 12:54 | A.OFFVIS_ITS ---
Vital Signs 06/06/24 13:00 Height 4 ft 11 in Weight 83 lb BMI 16.8 BP 184/70 H Blood Pressure Location Lt brachial Position Sitting Pulse 88 Intake Visit Reasons: 4 month follow up Intake Note: Patient 4 month follow up for Constipation. Patient cc: constipation and acid and abdominal pain on and off. Asp Net C Developer Required: No Accompanied by: Son Allergies Penicillins Allergy (Intermediate, Verified 09/08/25 12:45) RASH Medication List - Last Reconciled 06/06/24 by Lebron Milian MD acetaminophen 650 mg PO Q6H PRN alendronate 70 mg PO MO atorvastatin 40 mg PO BEDTIME 90 days bisacodyl (Dulcolax (bisacodyl)) 10 mg (2 x 5 mg) PO BEDTIME PRN 30 days cholecalciferol (vitamin D3) (Vitamin D3) 50 mcg PO BID cyanocobalamin (vitamin B-12) 1,000 mcg PO DAILY docusate sodium 100 mg PO BID PRN donepezil 5 mg PO BEDTIME ferrous sulfate 325 mg PO [id number] gabapentin 300 mg PO BEDTIME 30 days hydrocortisone 2.5% 1 appl OH Q8-12H latanoprost 0.005% 1 drp ophthalmic (eye) BEDTIME levetiracetam 500 mg PO BID meclizine 12.5 mg PO TID PRN metformin 500 mg PO BID 90 days nut.tx.gluc.intol,lac-free,soy (Glucerna Therapeutic Nutrition oral liquid) 1 can orally 3 times a day with meals; 30 days omeprazole 20 mg PO BEDTIME ropinirole 0.25 mg PO BEDTIME sennosides (senna) 17.2 mg (2 x 8.6 mg) PO BID PRN 90 days HPI HPI 4 month follow up: Details: GI CLINIC VISIT FOR THIS 84-YEAR-OLD CROATIAN-SPEAKING FEMALE FOLLOWED IN GI FOR GERD, CONSTIPATION AND RECTAL PROLAPSE: ? ? ?TODAY'S VISIT Pt is accompanied by her son who interpreted for the patient Patient reports constipation and acid and abdominal pain on and off. Had a fall and has been in and out of the hospital - had a rib fracture Prescribed tylenol. Has been eating less and has been constipated. Taking senna twice a day since other medications were not approved by her insurance Using topical cream prn for pain due to hemorrhoids - denies rectal bleeding Gabapentin was increased to 300 mg twice a day. PAST VISITS: Natividad presents to in office visit today in follow up of constipation. CC: Patient c/o constipation and numbness from bilateral feet. Per patient's son they could not start the Linzess do to high copay cost ($300). Continues to have intermittent constipation Denies other GI concerns today Patient cc: acid reflex with burning sensation on and off, chronic constipation with bloody hemorrhoids. Denies any other GI issues. Complains of constipation and feels something coming out of her rectum - ? rectal prolapse versus hemorrhoids Notes intermittent rectal bleeding consisting of BRB. Has a BM twice a day with straining Taking Senna 1 pill twice a day and dulcolx 1 pill twice a day. Continues to have constipation. Pt notes rectal prolapse when she strains to have a BM Has been taking the medications and having a BM twice a day. Takes 1 capsule of Senna and one capsule of colace twice a day with good results Stool are sometimes soft and sometimes hard. (twice She has to push sonetimes if she feels constipated Noted some diarrhea today Not taking iron due to constipation Complains of constipation - last BM was 3 days ago. Usually has a BM 3 times a week with passage of hard stools Constipation is not as bad as before Has a BM daily or every two days in the morning. BM are soft and she is able to go after pushing a little bit. Not eating very much - feels full fast. Not taking iron anymore. Followed by Dr Segura in Oncology and on procrit injections prn if HB is less than 10.5 No BM for the past 2 days. Had Senna, Miralax and dulcolax. Also takes prunes. Denies black stools or rectal bleeding. Pt feels some thing hard in the rectum and has rectal pain. Mild fever this am. Resumed taking iron due to worsening anemia. Taking iron every other day. ?? ? Continues to have intermittent constipation - has a BM 1-2 times a day. If she gets constipated, it may take her a week to have a BM - takes prunes and fruits which helps. Taking Alive a multivitamin with probiotics every other day ?? ? Can go 2 to 3 days without a BM. ?? ? Has hard stools with straining - afraid to get a hemorrhoid. Denies uterine or rectal prolapse. Chronic MEGAN (due to partial gastrectomy) and does not take oral iron due to worsening constipation Offered IV iron and patient refused ?LABS IN [facility]:?01/27/20 CBC SHOWED MILD ANEMIA WITH H&H OF 10.2 AND 31.6, PLATELET 262, NORMAL CHEM PANEL AND LFTS, VITAMIN B12 1558, FOLATE 16.3 ?IMAGING STUDIES: NO RECENT GI IMAGING ?ENDOSCOPIC STUDIES: 02/13/20 EGD AND COLONOSCOPY SHOWED: ? STOMACH: Bilroth 1 Gastric anatomy. A 10 mm white nodule in the gastric body - biopsied. Mild diffuse gastric erythema. Biopsies were obtained. Grade 2 flap valve on retroflexed examination of the cardia. ? DUODENUM: Normal biopsied for celiac sprue. ? Colonoscopy Findings: ? One small adenomatous polyp removed ? Moderate diverticulosis seen in the entire colon ? Small hemorrhoids on retroflexed exam. ? Plan: ? Patient has an appointment on 03/19/20 in the GI Clinic with Lebron Milian M.D.-. ? Repeat Colonoscopy interval based on path results - in 5 years if polyp is adenomatous and 10 years if polyps are hyperplastic. ?BIOPSIES SHOWED: ? A. Small bowel, biopsy: Small intestinal mucosa within normal limits. ? B. Stomach, biopsy: Antral-type and oxyntic mucosa with mild chronic inactive inflammation; no Helicobacter organisms seen. ? C. Stomach nodule: Gastric mucosa with mild chronic mucosal inflammation and foamy macrophages consistent with xanthoma; no Helicobacter organism seen. ? D. Colon, random, biopsy: Colonic mucosa within normal limits. ? E. Colon, sigmoid, polypectomy: Tubular adenoma; no high grade dysplasia or carcinoma seen. [facility] Medical History Osteoporosis (~2007) Tubular adenoma of colon (~2019) Post-menopausal Left arm swelling Swelling of lymph node Cardiac pacemaker in situ (~2018) Sick sinus syndrome Insomnia Degenerative joint disease Nocturnal leg cramps Dementia without behavioral disturbance GERD (gastroesophageal reflux disease) Constipation Vitamin D deficiency Neuropathy Vitamin B12 deficiency Epilepsy (~1998) Anemia Sinus bradycardia Pure hypercholesterolemia Diabetes mellitus Surgical History History of endoscopy History of ankle surgery (~2011) History of partial gastrectomy History of colonoscopy History of pacemaker (~2018) History of hysterectomy Family History Father Medical history unknown Mother No problems noted. Daughter No problems noted. Son No problems noted. 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 Current occupational exposures/hazards: No Cognitive needs: No Hearing needs: No Vision needs: Yes Review of Systems Const All systems reviewed & are unremarkable except as noted in HPI and below Physical Exam Vital Signs: Last Vital Signs Pulse 88 06/06/24 13:00 BP 184/70 H 06/06/24 13:00 BMI result Body Mass Index 16.8 Const General: no acute distress Nutritional Appearance: underweight Orientation/consciousness: patient oriented x3 Limitations: language barrier HEENT Head: Yes normal to inspection Ears: hearing grossly normal bilaterally Eyes Sclerae: sclerae normal Pupils: Equal, round and reactive pupils present Neck Neck: Yes normal visual inspection Chest Chest palpation & inspection: normal inspection of the chest Resp Effort & Inspection: normal respiratory effort Auscultation: clear to auscultation bilaterally Cardio Palpation: normal PMI Rate: regular rate Rhythm: regular rhythm Heart sounds: S1 normal heart sound present, S2 normal heart sound present and no murmurs GI Palpation (GI): Soft to palpation, nontender and No hepatosplenomegaly present Auscultation: normal bowel sounds Rectal Exam - Female: deferred Skin General skin exam: no rashes or lesions noted Neuro General: patient oriented x3, gait normal and moves all extremities Cranial nerves: Yes Equal, round and reactive pupils present Psych Appearance: grossly normal Mental Status: mental status grossly normal Assessment & Plan Assessment & Plan (1) Vitamin B12 deficiency: Comment: (related to partial gastrectomy for PUD) Code(s): E53.8 - Deficiency of other specified B group vitamins Category: Medical (2) Constipation: Code(s): K59.00 - Constipation, unspecified Category: Medical Qualifiers: Constipation type: unspecified constipation type Qualified Code(s): K59.00 - Constipation, unspecified (3) GERD (gastroesophageal reflux disease): Code(s): K21.9 - Gastro-esophageal reflux disease without esophagitis Category: Medical Qualifiers: Esophagitis presence: without esophagitis Qualified Code(s): K21.9 - Gastro-esophageal reflux disease without esophagitis (4) Iron deficiency anemia: Comment: Likely due to partial gastrectomy Code(s): D50.9 - Iron deficiency anemia, unspecified Category: Medical (5) Hemorrhoids, internal, with bleeding: Code(s): K64.8 - Other hemorrhoids Category: Medical Plan 84 year old indonesian speaking female followed in GI for GERD, chronic constipation, iron deficiency any, fecal incontinence and suspected rectal prolapse. 02/13/20 EGD and Colonoscopy showed: Bilroth 1 Gastric anatomy. 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 Mild diffuse gastric erythema. Biopsies were negative for H pylori.? Duodenal biopsies were negative for celiac sprue 02/13/20 colonoscopy showed Diverticulosis and one small adenomatous polyp removed. Repeat colonoscopy is advised in 5 years (if pt remains in stable health)? - action set in [facility]. Pt has not been taking Miralax on a regular basis and resumed taking it when she felt worsening constipation. Pt was advised to take a rectal suppository and if no results to take a fleet enema. Advised to go to the ER for large volume tap water enema if she is unable to have a BM. She is to resume taking Miralax 1-2 times daily. Patient was offered referral to physical therapy for the pelvic floor which she declined. If patient continues to have constipation on FU, she will be prescribed Amitiza or Linzess. 10/13/22 Pt advised to resume taking iron every other day due to worsening MEGAN. To take a can of Glucerna once a day (pt takes one meal a day and takes coffee, fruit and snacks the rest of the day 03/02/23 Pt was advised to increase Senna to 1 tab twice daily and (then to 2 tab twice daily if no improvement in constipation) and take a stool softener at bedtime p.r.n. 07/06/23 Pt advised to increase senna and docusate to 2 capsules twice a day if she is unable to have a bowel movement 1-2 days. If no results to take 2 capsules of Dulcolax p.r.n. Pt is scheduled to see Dr Segura in 3 months with repeat labs to FU on anemia 12/28/23 Taking Senna 1 pill twice a day and dulcolx 1 pill twice a day. Continues to have constipation. Pt advised to use HC cream for hemorrhoids and start Linzess 72 mcg daily for constipation 02/08/24 Pt prescribed Amitiza 8 mcg twice daily (due to high copay for Linzess) 06/06/24 Has been eating less and has been constipated. Taking senna twice a day since other medications were not approved by her insurance Using topical cream prn for pain due to hemorrhoids - denies rectal bleeding Follow-up appointment in 4 months to FU on MEGAN, GERD and?constipation Coding Level of Care Code Est Pt Level 3 (97751) Diagnoses Vitamin B12 deficiency E53.8 Constipation, unspecified constipation type K59.00 Constipation type: unspecified constipation type Gastroesophageal reflux disease without esophagitis K21.9 Esophagitis presence: without esophagitis Iron deficiency anemia D50.9 Hemorrhoids, internal, with bleeding K64.8 Time Spent (min) 18
[2024-06-06 13:00] VITALS: BP 184/70; PULSE 88; BMI 16.8
== END 2024-06-06 13:47 | disposition home or self-care (01) ==
PROVIDERS: PCP Internal Medicine; Visit Provider Internal Medicine Gastroenterology
DX: E53.8 Deficiency of other specified B group vitamins (principal); K59.00 Constipation, unspecified; K21.9 Gastro-esophageal reflux disease without esophagitis; D50.9 Iron deficiency anemia, unspecified; K64.8 Other hemorrhoids
CPT/HCPCS: 99499

== ENCOUNTER → 2024-06-06 12:51 | Outpatient (BNVA) | payer MEDICARE, SELFPAY | PROVIDERS: PCP Internal Medicine; Visit Provider Internal Medicine Gastroenterology ==

== ENCOUNTER 2024-06-24 11:16 | Outpatient (REF) | payer MEDICARE, SELFPAY ==
[2024-06-24 11:49] LABS: MANUAL DIFF FLAG NO
[2024-06-24 12:22] LABS: Basophils Percent Auto 0.6 % (0-2); Eosinophils Percent Auto 0.6 % (0-4); Hematocrit 35.9 % (37.0-47.0); Hemoglobin 11.9 g/dl (12.0-16.0); Imm Gran Abs Auto 0.03 X10*3/uL (0.00-0.03); Imm Gran Pct Auto 0.6 % (0.0-0.4); Lymphocytes Absolute Auto 1.8 X10*3/uL (1.2-4.9); Lymphocytes Percent Auto 37.4 % (20-40); Mean Corpuscular HGB Conc 33.1 g/dl (31.0-35.0); Mean Corpuscular Hemoglobin 31.7 pg (27.0-33.0); Mean Corpuscular Volume 95.7 fL (80.0-98.0); Mean Platelet Volume 11.6 fL (9.4-12.3); Monocytes Absolute Auto 0.4 X10*3/uL (0.1-1.2); Monocytes Percent Auto 9.1 % (2-11); Neutrophils Absolute Auto 2.4 x10*3/uL (2.0-8.3); Neutrophils Percent Auto 51.7 % (45-73); Platelet Count 159 X10*3/uL (160-400); Red Blood Count 3.75 X10*6/uL (4.20-5.50); Red Cell Distribution Width 15.4 % (11.0-16.0); White Blood Count 4.7 X10*3/uL (4.8-10.8)
[2024-06-24 13:18] LABS: Alanine Aminotransferase 42 U/L (0-31); Albumin Level 4.3 g/dL (3.5-5.0); Alkaline Phosphatase 62 U/L (39-117); Anion Gap 14 (12-20); Aspartate Amino Transferase 38 U/L (5-31); Bilirubin Total 0.8 mg/dL (0.0-1.0); Blood Urea Nitrogen 15 mg/dL (9-16); Calcium 9.7 mg/dL (8.4-10.2); Carbon Dioxide 23 mmol/L (22-29); Chloride 109 mmol/L (96-108); Cholesterol 153 mg/dL (<200); Estimated Glomerular Filt Rate 60; Glucose Fasting 93 mg/dL (60-99); HDL Cholesterol 74 mg/dL (>40); LDL Cholesterol Calculated 63 mg/dL (<100); Potassium 4.2 mmol/L (3.3-5.1); Sodium 142 mmol/L (135-145); Total Protein 7.7 g/dL (6.5-8.0); Triglycerides 83 mg/dL (<150)
[2024-06-24 13:24] LABS: TSH reflex Free T4 0.67 uIU/mL (0.32-4.0); Vitamin D 25-OH Total 58.7 ng/mL (>30)
[2024-06-24 13:25] LABS: Estimated Average Glucose 131 mg/dL; Hemoglobin A1C 227.8869 umol/L; Hemoglobin A1c % 6.2 % (<6.0); Total Hemoglobin (HGBA1C) 5163.5594 umol/L
[2024-06-24 13:41] LABS: Folate 13.6 ng/mL (> or = 4.0); Vitamin B12 1587 pg/mL (200-900)
[2024-06-24 14:14] LABS: Appearance Urine Cloudy; Color Urine Yellow; Glucose Urine UA Negative (Negative); Leukocyte Esterase Urine Large (3+) (Negative); Nitrite Urine Negative (Negative); PH 5.5 (5.0-9.0); UMIC TRIGGER UACC YES; Urine Blood Negative (Negative); Urine Ketones Negative (Negative); Urine Protein Trace mg/dL (Neg-Trace)
[2024-06-24 14:25] LABS: Bacteria Urine 1+ (None Seen); RBC Urine 0-2 /HPF (0-2); UACC Culture Trigger YES; WBC Urine >50 /HPF (0-5)
[2024-06-24 15:21] LABS: Creatinine Urine 111.59 mg/dL; Microalbum/Creatinine Ratio Ur 16.1 ug/mg cr (<30)
[2024-06-27 19:08] LABS: Levetiracetam Keppra 24.9 mcg/mL (6.0-46.0)
== END 2024-06-24 11:17 | disposition home or self-care (01) ==
LOC: HO.LAB 11:16
PROVIDERS: PCP Internal Medicine; Visit Provider Internal Medicine
DX: E78.00 Pure hypercholesterolemia, unspecified (principal); D64.9 Anemia, unspecified; G40.909 Epilepsy, unspecified, not intractable, without status epilepticus; E53.8 Deficiency of other specified B group vitamins; E11.9 Type 2 diabetes mellitus without complications; E55.9 Vitamin D deficiency, unspecified; R30.0 Dysuria
CPT/HCPCS: 36415; 80053; 80061; 80177; 81001; 82043; 82306; 82570; 82607; 82746; 83036; 84443; 85025; 87086

== ENCOUNTER 2024-06-26 14:55 | Emergency (ER) | payer MEDICARE, SELFPAY ==
--- NOTE | ~2024-06-26 | XR_ITS ---
EXAMINATION: XR CHEST CLINICAL INFORMATION: Shortness of breath COMPARISON: Chest x-ray on 06/28/2023 TECHNIQUE: 2 views of the chest were obtained. FINDINGS: No significant abnormality is noted involving the heart, lungs, mediastinum, bony thorax or soft tissues. There is a left chest 2-lead cardiac device. XR/XR chest 2V IMPRESSION: No acute disease. Electronically signed by: Lu Lezama MD 06/26/2024 04:57 PM [facility] - [place], [place]
[2024-06-26 15:09] VITALS: BP 134/50; PULSE 85; RESP 20; TEMP 36.5; O2SAT 100; BMI 20.5
--- NOTE | 2024-06-26 15:11 | ED.GENADULT ---
HPI - General Adult General Chief complaint: General Medical Stated complaint: feet swelling-l flank pain Time Seen by Provider: 06/26/24 19:47 Source: patient Limitations: no limitations History of Present Illness HPI narrative: Patient is an 84 year old female with a PMH of sick sinus syndrome s/p pacemaker in 2019, who presents with c/o b/l leg swelling and SOB. Patient states her swelling began about 2 weeks ago and has been worsening since that time. It is painful to ambulate. Her SOB has also been worsening since this time. She has been having increasing KRUGER, orthopnea, and PND. She also mentions increasing coldness in her lower extremities. She does not wear compression stockings or elevate her legs often, and she denies any recent illness or upper respiratory symptoms. She denies any known hepatic or renal conditions. Patient was hospitalized roughly 3 weeks ago for broken ribs due to a seizure. Related Data Home Medications ?Medication ?Instructions ?Recorded ?Confirmed latanoprost 0.005 % eye drops 1 drp ophthalmic (eye) BEDTIME 12/30/21 06/06/24 alendronate 70 mg tablet 70 mg PO MO 09/15/23 06/06/24 acetaminophen 325 mg tablet 650 mg PO Q6H PRN pain or fever 05/06/24 06/06/24 docusate sodium 100 mg capsule 100 mg PO BID PRN for constipation 05/06/24 06/06/24 ferrous sulfate 325 mg (65 mg 325 mg PO SuTuWeThFrSa@0900 05/06/24 06/06/24 iron) tablet omeprazole 20 mg capsule,delayed 20 mg PO BEDTIME 05/06/24 06/06/24 release donepezil 5 mg tablet 5 mg PO BEDTIME 06/06/24 06/06/24 levetiracetam 500 mg tablet 500 mg PO BID 06/06/24 06/06/24 ropinirole 0.25 mg tablet 0.25 mg PO BEDTIME 06/06/24 06/06/24 Previous Rx's ?Medication ?Instructions ?Recorded bisacodyl 5 mg tablet,delayed 10 mg (2 x 5 mg) PO BEDTIME PRN 07/06/23 release (Dulcolax (bisacodyl)) constipation 30 days #10 tabs sennosides 8.6 mg tablet (senna) 17.2 mg (2 x 8.6 mg) PO BID PRN 11/06/23 Constipation 90 days #360 tabs atorvastatin 40 mg tablet 40 mg PO BEDTIME 90 days #90 tabs 12/08/23 gabapentin 300 mg capsule 300 mg PO BEDTIME 30 days #30 caps 02/06/24 cyanocobalamin (vitamin B-12) 1,000 mcg PO DAILY #90 caps 02/23/24 1,000 mcg capsule metformin 500 mg tablet 500 mg PO BID 90 days #180 tabs 02/23/24 cholecalciferol (vitamin D3) 50 50 mcg PO BID #60 tabs 04/29/24 mcg (2,000 unit) tablet (Vitamin D3) hydrocortisone 2.5 % topical cream 1 appl GA Q8-12H #30 grams 05/08/24 with perineal applicator meclizine 12.5 mg tablet 12.5 mg PO TID PRN dizziness #90 05/24/24 tabs nut.tx.gluc.intol,lac-free,soy See Rx Instructions .Route 05/24/24 (Glucerna Therapeutic Nutrition .COMPLEX 30 days #90 multiple units oral liquid) Allergies Allergy/AdvReac Type Severity Reaction Status Date / Time Penicillins Allergy Intermediate RASH Verified 06/26/24 15:11 Review of Systems Review of Systems: Yes all other systems are reviewed and are negative Constitutional: Constitutional: Denies chills, Denies fever(s) and Denies headache(s) Eyes: Eyes: Denies change in vision and Denies loss of vision ENT: Denies headache(s), Denies post nasal drip, Denies tinnitus and Denies sore throat Cardiovascular: Cardiovascular: Denies Abdominal Distension, Reports acrocyanosis (b/l feet), Reports cool extremities (feet ), Reports chest pain, Denies Epigastric Pain, Reports syncope, Reports pedal edema, Reports leg edema, Denies palpitations, Reports dyspnea, Reports dyspnea on exertion, Reports orthopnea and Reports paroxysmal nocturnal dyspnea Respiratory: Respiratory: Denies cough, Reports dyspnea, Reports dyspnea on exertion and Denies wheezing Gastrointestinal: Gastrointestinal: Denies abdominal pain, Denies constipation, Denies diarrhea, Denies nausea and Denies vomiting Genitourinary: Genitourinary: Denies hematuria, Denies dysuria and Denies urinary urgency Musculoskeletal: Musculoskeletal: Denies arthralgias, Denies joint swelling and Denies stiffness Integumentary/Breasts: Skin/Breast: Denies pruritus, Denies lesions, Denies rash and Denies jaundice Neurologic: Reports syncope, Denies headache(s), Denies loss of vision, Reports seizure-like activity and Reports Sensory deficit (Neuro) Psychiatric: Psychiatric: Denies anxiety, Denies homicidal ideation and Denies suicidal ideation Endocrine: Endocrine: Denies palpitations Allergic/Immunologic: Allergic/Immunologic: Denies wheezing PMFSH Past Medical History Attestation statement: The following information was validated with the patient. Medical History Chest pressure Osteoporosis (~2007) Tubular adenoma of colon (~2019) Post-menopausal Left arm swelling Swelling of lymph node Cardiac pacemaker in situ (~2018) Sick sinus syndrome Overweight (BMI 25.0-29.9) Insomnia Degenerative joint disease Nocturnal leg cramps Dementia without behavioral disturbance GERD (gastroesophageal reflux disease) Constipation Vitamin D deficiency Neuropathy Vitamin B12 deficiency Epilepsy (~1998) Anemia Sinus bradycardia Pure hypercholesterolemia Diabetes mellitus Surgical History History of endoscopy History of ankle surgery (~2011) History of partial gastrectomy History of colonoscopy History of pacemaker (~2018) History of hysterectomy Family History Family History Father Medical history unknown Mother No problems noted. Daughter No problems noted. Son No problems noted. Other Substance use disorder Social History Social History Household Members: None Housing: House Are you a primary clinical care leader to a significant other at home: No Do you presently have visiting nurse or other home services: No Alcohol intake: never Patient Tobacco Use Status: Former Tobacco user Tobacco use type: Cigarette Smoked in Last 30 Days: No e-Cigarette/Vaping Use: Never Used Second Hand Smoke Exposure: No Advance Directives: Yes Advance Directives Information Provided: No Advance Directives on File: No Advance Directives Date on File: 05/06/24 service: No Current occupational 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: 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 Cognitive needs: No Hearing needs: No Vision needs: Yes Physical Exam ED Vital Signs: Vital Signs - 24 hr 06/26/24 15:09 06/26/24 19:31 Temperature 97.7 F 97.8 F Pulse Rate 85 63 Respiratory Rate 20 14 Blood Pressure 134/50 L 121/55 L Pulse Oximetry 100 97 Oxygen Delivery Method Room Air Room Air BMI result Body Mass Index 20.5 Const General: cooperative, comfortable, no acute distress and well developed; No diaphoretic or ill appearing Nutritional Appearance: average body habitus Orientation/consciousness: patient oriented x3 [facility]: Yes normal to inspection, Yes normocephalic and Yes atraumatic Eyes General: appearance normal, both eyes and all related structures Visual Jonas: normal visual jonas by confrontation Alignment and Position: alignment normal and position normal Neck Neck: Yes normal visual inspection, Yes full ROM and Yes no meningeal signs Resp Effort & Inspection: normal respiratory effort, able to speak in complete sentences, no audible wheezes, no cough, no nasal flaring, no respiratory distress, no retractions and no use of accessory muscles Auscultation: no rales, no rhonchi and no wheezes Cardio Jugular venous distension: no JVD Rate: regular rate Rhythm: regular rhythm Heart sounds: S1 normal heart sound present and S2 normal heart sound present GI Inspection: Yes normal to inspection, No abdominal wall ecchymosis, No Abdominal wall edema and No distended Palpation (GI): Soft to palpation, not firm, nontender, no guarding and not rigid Skin Other: warm and dry, no rash Neuro General: patient oriented x3, moves all extremities, no meningeal signs, no focal motor deficits and CN's II-XI intact bilaterally Cranial nerves: Yes CN's II-XII intact bilaterally and Yes Bilaterally intact EOM present Sensory Exam: Sensory deficit (Neuro) Extrem General: Yes normal to inspection, Yes full ROM, Yes no joint enlargement, No clubbing, No cyanosis, Yes edema (b/l lower extremities ) and Yes pedal edema (b/l) Right lower extremity: edema, lower leg Details: pitting edema Details: 1+, ankle Details: edema and foot Details: edema Left lower extremity: edema, lower leg Details: pitting edema Details: 1+, ankle Details: pitting edema and foot Details: edema Psych Other: calm and cooperative Appearance: grossly normal Mental Status: mental status grossly normal Speech and movement: Normal speech and movement present and Clear speech present Affect: normal affect Attitude: cooperative Thought process: Normal thought process present Thought content: Normal thought content present Insight: Good insight present (Psych) Judgement: Good judgement present (Psych) Course Course Course Narrative: This is a Rapid Medical Examination (RME) performed by Emi Walls PA-C in triage. Full HPI, ROS, assessment and treatment plan per primary provider in the Main ED. 84 yo german speaking female hx of anemia, dementia, seizures, DM, HDL, GERD, constipation, osteoporosis here for foot/ ankle swelling x2 weeks, worse when waking in the morning. tries to elevated the LEs however this does not help the swelling. admits to SOB worse w/ exertion. also reports low back pain. + 1+ pedal edema Plan: labs, ekg, cxr Medical Decision Making Medical Decision Making MDM Narrative: I Elly Ely PA-C have personally assessed and manage the patient, Mouna STEINER observed and helped to formulate the documentation Patient is an 84 year old female with a PMH of sick sinus syndrome s/p pacemaker in 2019, who presents with c/o b/l leg swelling and SOB. Patient states her swelling began about 2 weeks ago and has been worsening since that time. It is painful to ambulate. Her SOB has also been worsening since this time. She has been having increasing KRUGER, orthopnea, and PND. She also mentions increasing coldness in her lower extremities. She does not wear compression stockings or elevate her legs often, and she denies any recent illness or upper respiratory symptoms. She denies any known hepatic or renal conditions. Patient was hospitalized roughly 3 weeks ago for broken ribs due to a seizure. PMH: SSS and bradycardia s/p pacemaker in 2019, epilepsy, DM, chest pain, b/l lower extremity pain DDx: heart failure, DVT/PE, CKD, ACS, liver failure, pneumonia, COPD Plan: As the patient has complaints of b/l leg swelling, SOB/KRUGER, orthopnea, and PND, and has a history of known cardiac conditions, it is possible that she is in heart failure. Will assess with BNP. Also considered CKD as she has a history of DM and is having symptoms of fluid retention. Will assess with CMP and UA. Thought about ACS given that she has ongoing chest pressure and SOB, however it would not explain her edema. Patient also has history of chest pressure, therefore this is not a new symptom. Will assess with EKG and troponin. Since she complains of leg swelling/pain and SOB, I considered DVT/PE, however the swelling is not unilateral, there is no hemoptysis, no palpitations, and no warmth on the skin. Patient is also not tachycardic or hypoxic on exam. As it is unlikely, will assess for other causes first. Thought about liver failure d/t fluid retention, however there is no jaundice, and patient does not complain of pruritis or dark urine, and there is no ascites noted on exam. Will further assess with LFTs. Considered pneumonia d/t SOB and chest pressure, however patient denies recent illness, upper respiratory symptoms, and is afebrile. Will assess with CBC. Thought about COPD, however patient is not hypoxic and denies cough, therefore I think this is unlikely. Will rule out other causes first. Per Elly Ely PA-C Based on my exam, the patient has dependent edema. She has trace pedal edema, she is not hypoxic, she is not tachycardic she is not overtly hypertensive to suggest an actual heart failure exacerbation. We will send with home care instructions which include compression stockings. There are no skin changes to suggest venous insufficiency, there was no overlying erythema to suggest cellulitis, the distribution is bilateral symmetric, do not think she needs DVT studies. I have independently reviewed the following tests: Labs: No leukocytosis, not anemic, no electrolyte abnormality, troponin x2 are flat, BNP 236 Chest x-ray: XR/XR chest 2V IMPRESSION: No acute disease. Electronically signed by: Lu Lezama MD 06/26/2024 04:57 PM [facility] [place]KG: Junctional rhythm, rate of 83, no ischemic changes Lab Data 06/26/24 15:43 06/26/24 15:43 Labs: Lab Results 06/26/24 06/26/24 Range/Units 15:43 20:33 WBC 4.2 L (4.8-10.8) X10*3/uL RBC 3.13 L (4.20-5.50) X10*6/uL Hgb 10.0 L (12.0-16.0) g/dl Hct 30.0 L (37.0-47.0) % MCV 95.8 (80.0-98.0) fL MCH 31.9 (27.0-33.0) pg MCHC 33.3 (31.0-35.0) g/dl RDW 15.7 (11.0-16.0) % Plt Count 166 (160-400) X10*3/uL MPV 10.8 (9.4-12.3) fL Immature Gran % (Auto) 0.2 (0.0-0.4) % Neut % (Auto) 38.8 L (45-73) % Lymph % (Auto) 47.7 H (20-40) % Mccreary % (Auto) 11.4 H (2-11) % Eos % (Auto) 1.2 (0-4) % Baso % (Auto) 0.7 (0-2) % Lymph # (Auto) 2.0 (1.2-4.9) X10*3/uL Mccreary # (Auto) 0.5 (0.1-1.2) X10*3/uL Eos # (Auto) 0.1 (0.0-0.4) X10*3/uL Baso # (Auto) 0.0 (0.0-0.2) X10*3/uL Abs Immat Gran (auto) 0.01 (0.00-0.03) X10*3/uL Absolute Neuts (auto) 1.6 L (2.0-8.3) x10*3/uL Absolute Nucleated RBC 0.000 (0.0-0.012) X10*3/uL Nucleated RBC % (auto) 0.0 (0.0-0.2) /100WBC Sodium 142 (135-145) mmol/L Potassium 4.1 (3.3-5.1) mmol/L Chloride 113 H (96-108) mmol/L Carbon Dioxide 21 L (22-29) mmol/L Anion Gap 12 (12-20) BUN 17 H (9-16) mg/dL Creatinine 0.82 (0.5-1.4) mg/dL Estim Creat Clear Calc 26.6 Estimated GFR > 60 Random Glucose 89 (60-115) mg/dL Calcium 8.6 D (8.4-10.2) mg/dL Magnesium 1.6 (1.6-2.6) mg/dL Total Bilirubin 0.3 (0.0-1.0) mg/dL AST 40 H (5-31) U/L ALT 40 H (0-31) U/L Alkaline Phosphatase 50 (39-117) U/L Troponin I High Sens 3.3 4.0 (<3.5-17.0) ng/L B-Natriuretic Peptide 236 H (<100) pg/mL Total Protein 6.0 L (6.5-8.0) g/dL Albumin 3.4 L (3.5-5.0) g/dL Lipase 21 (8-78) U/L Discharge Plan Discharge Clinical Impression: Dependent edema Patient Disposition: Home, Self-Care Instructions: Leg Edema (ED) Additional Instructions: You have what is called dependent edema, your circulation is not as good as it used to be. The use of compression stockings we will help to boost your circulation and alleviate the fluid. While resting elevate your legs. While walking and performing your activities during the day, wear the compression stockings. They can be purchased at any pharmacy. Keep your pending appointment with your primary care provider scheduled for tomorrow morning. Prescriptions: No Action sennosides [senna] 8.6 mg tablet 17.2 mg PO BID PRN (Reason: Constipation) 90 Days Qty: 360 1RF atorvastatin 40 mg tablet 40 mg PO BEDTIME 90 Days Qty: 90 1RF gabapentin 300 mg capsule 300 mg PO BEDTIME 30 Days Qty: 30 3RF cholecalciferol (vitamin D3) [Vitamin D3] 50 mcg (2,000 unit) tablet 50 mcg PO BID Qty: 60 1RF hydrocortisone 2.5 % cream with perineal applicator 1 appl GA Q8-12H Qty: 30 2RF Glucerna Therapeutic Nutrition Liquid See Rx Instructions .ROUTE .COMPLEX 30 Days Qty: 90 5RF Rx Instructions: 1 can orally 3 times a day with meals; meclizine 12.5 mg tablet 12.5 mg PO TID PRN (Reason: dizziness) Qty: 90 0RF ferrous sulfate 325 mg (65 mg iron) tablet 325 mg PO SuTuWeThFrSa@0900 docusate sodium 100 mg capsule 100 mg PO BID PRN (Reason: for constipation) omeprazole 20 mg capsule,delayed release(DR/EC) 20 mg PO BEDTIME acetaminophen 325 mg Tablet 650 mg PO Q6H PRN (Reason: pain or fever) alendronate 70 mg tablet 70 mg PO MO metformin 500 mg tablet 500 mg PO BID 90 Days Qty: 180 3RF cyanocobalamin (vitamin B-12) 1,000 mcg capsule 1,000 mcg PO DAILY Qty: 90 1RF latanoprost 0.005 % drops 1 drp ophthalmic (eye) BEDTIME bisacodyl [Dulcolax (bisacodyl)] 5 mg tablet,delayed release (DR/EC) 10 mg PO BEDTIME PRN (Reason: constipation) 30 Days Qty: 10 1RF Rx Instructions: to use if no bowel movement for 2-3 days donepezil 5 mg tablet 5 mg PO BEDTIME levetiracetam 500 mg tablet 500 mg PO BID ropinirole 0.25 mg tablet 0.25 mg PO BEDTIME Rx Instructions: administer 1-3 hours before bedtime Print Language: French
--- NOTE | 2024-06-26 15:12 | ECG_ITS ---
Test Reason : SHORT OF BREATH Blood Pressure : / mmHG Vent. Rate : 083 BPM Atrial Rate : 000 BPM P-R Int : 000 ms QRS Dur : 066 ms QT Int : 338 ms P-R-T Axes : 000 023 008 degrees QTc Int : 397 ms Accelerated Junctional rhythm Abnormal ECG When compared with ECG of 20-MAY-2024 12:20, Junctional rhythm has replaced Electronic atrial pacemaker Nonspecific T wave abnormality no longer evident in Anterior leads Referred By: Alva Walls Electronically Signed By:ALBERTINA PENG MD
[2024-06-26 15:54] LABS: MANUAL DIFF FLAG NO
[2024-06-26 15:55] LABS: Basophils Percent Auto 0.7 % (0-2); Eosinophils Absolute Auto 0.1 X10*3/uL (0.0-0.4); Eosinophils Percent Auto 1.2 % (0-4); Imm Gran Abs Auto 0.01 X10*3/uL (0.00-0.03); Imm Gran Pct Auto 0.2 % (0.0-0.4); Lymphocytes Percent Auto 47.7 % (20-40); Mean Corpuscular HGB Conc 33.3 g/dl (31.0-35.0); Mean Corpuscular Hemoglobin 31.9 pg (27.0-33.0); Mean Corpuscular Volume 95.8 fL (80.0-98.0); Mean Platelet Volume 10.8 fL (9.4-12.3); Monocytes Absolute Auto 0.5 X10*3/uL (0.1-1.2); Monocytes Percent Auto 11.4 % (2-11); Neutrophils Absolute Auto 1.6 x10*3/uL (2.0-8.3); Neutrophils Percent Auto 38.8 % (45-73); Platelet Count 166 X10*3/uL (160-400); Red Blood Count 3.13 X10*6/uL (4.20-5.50); Red Cell Distribution Width 15.7 % (11.0-16.0); White Blood Count 4.2 X10*3/uL (4.8-10.8)
[2024-06-26 16:14] LABS: Alanine Aminotransferase 40 U/L (0-31); Albumin Level 3.4 g/dL (3.5-5.0); Alkaline Phosphatase 50 U/L (39-117); Anion Gap 12 (12-20); Aspartate Amino Transferase 40 U/L (5-31); Bilirubin Total 0.3 mg/dL (0.0-1.0); Blood Urea Nitrogen 17 mg/dL (9-16); Calcium 8.6 mg/dL (8.4-10.2); Carbon Dioxide 21 mmol/L (22-29); Chloride 113 mmol/L (96-108); Creatinine Clr Calc Pharmacy 26.6; Estimated Glomerular Filt Rate > 60; Glucose Random 89 mg/dL (60-115); Lipase 21 U/L (8-78); Magnesium 1.6 mg/dL (1.6-2.6); Potassium 4.1 mmol/L (3.3-5.1); Sodium 142 mmol/L (135-145)
[2024-06-26 16:15] LABS: B Type Natriuretic Peptide 236 pg/mL (<100); Troponin-I High Sensitivity 3.3 ng/L (<3.5-17.0)
--- NOTE | 2024-06-26 19:30 | PC.NURSE ---
pt from lobby, assume care of pt at this time
[2024-06-26 19:31] VITALS: BP 121/55; PULSE 63; RESP 14; TEMP 36.6; O2SAT 97
[2024-06-26 21:48] VITALS: BP 123/47; PULSE 60; RESP 14; TEMP 36.6; O2SAT 97
== END 2024-06-26 21:49 | disposition home or self-care (01) ==
PROVIDERS: Physician Assistant Medical; Emergency Provider Emergency Medicine Emergency Medical Services; PCP Internal Medicine
DX: R60.0 Localized edema (principal); R06.02 Shortness of breath; E11.9 Type 2 diabetes mellitus without complications; E78.00 Pure hypercholesterolemia, unspecified; Z95.0 Presence of cardiac pacemaker; Z79.02 Long term (current) use of antithrombotics/antiplatelets; Z79.899 Other long term (current) drug therapy; Z79.84 Long term (current) use of oral hypoglycemic drugs
CPT/HCPCS: 36415; 71046; 80053; 83690; 83735; 83880; 84484; 85025; 93005; 99283; 99284

== ENCOUNTER → 2024-06-26 15:12 | Outpatient (BNV) | payer MEDICARE, SELFPAY | PROVIDERS: PCP Internal Medicine; Visit Provider Internal Medicine Cardiovascular Disease | DX: R94.31 Abnormal electrocardiogram [ECG] [EKG] (principal) | CPT/HCPCS: 93010 ==

== ENCOUNTER 2024-07-03 10:58 | Outpatient (AMB) | payer MEDICARE, SELFPAY ==
[2024-07-03 11:06] VITALS: BP 108/58; PULSE 90; BMI 19.3
--- NOTE | 2024-07-03 11:06 | A.OFFVIS_ITS ---
Vital Signs 07/03/24 11:06 Height 4 ft 8 in Weight 86 lb BMI 19.3 BP 108/58 L Blood Pressure Location Lt brachial Position Sitting Pulse 90 Pulse Source Monitor Intake Visit Reasons: 1 yr w/ [employer] Plate Glass Polisher Required: Yes Plate Glass Polisher Services: Plate Glass Polisher Offered & Declined Accompanied by: Son Allergies Penicillins Allergy (Intermediate, Verified 06/26/24 15:11) RASH Medication List - Last Reconciled 07/03/24 by Everett Lay MD acetaminophen 650 mg PO Q6H PRN alendronate 70 mg PO MO atorvastatin 40 mg PO BEDTIME 90 days bisacodyl (Dulcolax (bisacodyl)) 10 mg (2 x 5 mg) PO BEDTIME PRN 30 days cholecalciferol (vitamin D3) (Vitamin D3) 50 mcg PO BID cyanocobalamin (vitamin B-12) 1,000 mcg PO DAILY docusate sodium 100 mg PO BID PRN donepezil 5 mg PO BEDTIME ferrous sulfate 325 mg PO SuTuWeThFrSa@0900 gabapentin 300 mg PO BID hydrocortisone 2.5% 1 appl LA Q8-12H latanoprost 0.005% 1 drp ophthalmic (eye) BEDTIME levetiracetam 500 mg PO BID meclizine 12.5 mg PO TID PRN metformin 500 mg PO BID 90 days nut.tx.gluc.intol,lac-free,soy (Glucerna Therapeutic Nutrition oral liquid) 1 can orally 3 times a day with meals; 30 days omeprazole 20 mg PO BEDTIME sennosides (senna) 17.2 mg (2 x 8.6 mg) PO BID PRN 90 days HPI Comments Details: Natividad comes for follow-up with her son who acts as civil engineer helper. Patient has lost further weight and thinks that the pacemaker is more prominent and moving around. Has some discomfort at that side. Otherwise he has no other issues. Denies any lightheadedness, syncope. Blood pressure remains on lower side. Patient does not drink enough fluids in the day. Denies any prolonged palpitation irregular heartbeat. Denies any exertional chest pain or shortness of breath. [facility] Medical History Chest pressure Osteoporosis (~2007) Tubular adenoma of colon (~2019) Post-menopausal Left arm swelling Swelling of lymph node Cardiac pacemaker in situ (~2018) Sick sinus syndrome Overweight (BMI 25.0-29.9) Insomnia Degenerative joint disease Nocturnal leg cramps Dementia without behavioral disturbance GERD (gastroesophageal reflux disease) Constipation Vitamin D deficiency Neuropathy Vitamin B12 deficiency Epilepsy (~1998) Anemia Sinus bradycardia Pure hypercholesterolemia Diabetes mellitus Surgical History History of endoscopy History of ankle surgery (~2011) History of partial gastrectomy History of colonoscopy History of pacemaker (~2018) History of hysterectomy Family History Father Medical history unknown Mother No problems noted. Daughter No problems noted. Son No problems noted. 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 Cognitive needs: No Hearing needs: No Vision needs: Yes Review of Systems Const Denies weakness ENT Denies dizziness Card Denies chest pain, Denies chest pain with activity, Denies syncope, Denies rapid heart rate, Denies pedal edema, Denies edema, Denies leg edema, Denies lightheadedness, Denies palpitations, Denies dyspnea, Denies dyspnea on exertion and Denies orthopnea Resp Denies cough, Denies dyspnea and Denies dyspnea on exertion GI Denies hematochezia and Denies change in stool character Musc Denies abnormal gait, Denies muscle cramps, Denies muscle weakness, Denies numbness, Denies radiating pain into limb and Denies tingling Neuro Denies abnormal gait, Denies dizziness, Denies syncope, Denies numbness, Denies tingling and Denies weakness Endo Denies palpitations Physical Exam Vital Signs: Last Vital Signs Pulse 90 07/03/24 11:06 BP 108/58 L 07/03/24 11:06 BMI result Body Mass Index 19.3 Const General: cooperative, comfortable, no acute distress, alert and awake Orientation/consciousness: patient oriented x3 Limitations: no limitations Neck Neck: Yes trachea midline, Yes supple and Yes no JVD Chest Chest palpation & inspection: normal inspection of the chest Resp Effort & Inspection: normal respiratory effort Auscultation: clear to auscultation bilaterally Cardio Jugular venous distension: no JVD Palpation: normal PMI Rate: regular rate Rhythm: regular rhythm Heart sounds: S1 normal heart sound present and S2 normal heart sound present Skin General skin exam: no rashes or lesions noted Neuro General: patient oriented x3 and no focal motor deficits Extrem General: Yes no clubbing, cyanosis or edema Office Procedures Cardiac Device Check Cardiac Device Check Details: Dual chamber Medtronic pacemaker in place. Atrial pacing 52% of time. No arrhythmias noted. Programmed in MVP mode with rate response. Atrial ventricular sensing is adequate. Pacing lead impedance is stable. Atrial and ventricular sensing is adequate. Pacing thresholds adequate. Battery life is at about 9 years [id number] Cardiac Device Check, pacemaker dual lead Procedure code (CPT) selection complete EKG Details: EKG shows ectopic atrial rhythm with nonspecific T-wave changes. [id number], Complete Assessment & Plan Assessment & Plan (1) Cardiac pacemaker in situ: Onset Date: ~2018 Comment: (Medtronic DCPP - placed 12/2018 - pocket revision 10/2021) Code(s): Z95.0 - Presence of cardiac pacemaker Category: Medical Plan: Cardiac pacemaker in-situ for sick sinus rhythm. Pacemaker is functioning well. Will follow remotely every 3 months. Follow up in the clinic in 1 year's time. Currently doing well. No arrhythmias noted. Continue supportive care. Does not hydrate much adequately. Advised to maintain adequate hydration to prevent low blood pressure and syncopal episode. Will follow up in the clinic in 1 year's time, sooner p.r.n.. Thank you for a llowing me to partake in her care Medications: Changed From gabapentin 300 mg PO BEDTIME 30 days 30 caps 3RF To gabapentin 300 mg PO BID Coding Level of Care Code Est Pt Level 3 (02284) Complex EM visit Add On G2211 Diagnoses Cardiac pacemaker in situ Z95.0 CPT Codes Cardiac Device Check - Cardiac Device 2: 51113-[id number] Cardiac Device Check, pacemaker dual lead ([id number]) EKG - CPT: 32409-[id number], Complete ([id number])
== END 2024-07-03 11:28 | disposition home or self-care (01) ==
PROVIDERS: PCP Internal Medicine; Visit Provider Internal Medicine Cardiovascular Disease
DX: I48.91 Unspecified atrial fibrillation (principal); I49.5 Sick sinus syndrome; Z95.0 Presence of cardiac pacemaker
CPT/HCPCS: 93280; 99213; G2211

== ENCOUNTER → 2024-07-03 10:58 | Outpatient (BNVA) | payer MEDICARE, SELFPAY | PROVIDERS: PCP Internal Medicine; Visit Provider Internal Medicine Cardiovascular Disease | DX: Z45.018 Encounter for adjustment and management of other part of cardiac pacemaker (principal) | CPT/HCPCS: 93280; 99212 ==

== ENCOUNTER 2024-07-05 10:42 | Outpatient (AMB) | payer MEDICARE, SELFPAY ==
[2024-07-05 10:45] VITALS: BP 110/62; PULSE 113; O2SAT 97; BMI 19.3
--- NOTE | 2024-07-05 10:45 | A.OFFPC_ITS ---
Vital Signs 07/05/24 10:45 Height 4 ft 8 in Weight 86 lb BMI 19.3 BP 110/62 Blood Pressure Location Lt brachial Position Sitting Pulse 113 H Pulse Source Pulse Oximeter Pulse Oximetry (%) 97 Oxygen Delivery Method Room Air Intake Visit Reasons: 4 month f/u [employer] Super[employer] Required: No Accompanied by: Self / Same As Patient Allergies Penicillins Allergy (Intermediate, Verified 07/05/24 11:06) RASH Medication List - Last Reconciled 07/05/24 by Cuate Oscar MD acetaminophen 650 mg PO Q6H PRN alendronate 70 mg PO MO atorvastatin 40 mg PO BEDTIME 90 days bisacodyl (Dulcolax (bisacodyl)) 10 mg (2 x 5 mg) PO BEDTIME PRN 30 days cholecalciferol (vitamin D3) (Vitamin D3) 50 mcg PO BID cyanocobalamin (vitamin B-12) 1,000 mcg PO DAILY docusate sodium 100 mg PO BID PRN donepezil 5 mg PO BEDTIME ferrous sulfate 325 mg PO [id number] gabapentin 300 mg PO BID hydrocortisone 2.5% 1 appl TN Q8-12H latanoprost 0.005% 1 drp ophthalmic (eye) BEDTIME levetiracetam 500 mg PO BID meclizine 12.5 mg PO TID PRN metformin 500 mg PO BID 90 days nut.tx.gluc.intol,lac-free,soy (Glucerna Therapeutic Nutrition oral liquid) 1 can orally 3 times a day with meals; 30 days omeprazole 20 mg PO BEDTIME sennosides (senna) 17.2 mg (2 x 8.6 mg) PO BID PRN 90 days Tobacco use date assessed: 07/05/24 Fall risk assessment: 2 + Falls in past year Last assessed Fall Risk: 07/05/24 Dental Screening Dental Screen Date: 07/05/24 Did you have a dental visit in the last 12 months?: No Did you have a dental problem in the last 6 months where you did not have access to dental care?: No Was dental information given to patient?: No HPI 4 month f/u HPI Details Patient comes in today for her follow up visit States that she feels okay although she has been experiencing increased swelling of her lower legs and feet lately She reportedly went to the ER a couple of weeks ago for increased swelling of her lower legs, ankle and feet Works ups (labs) done at the ER all came back okay She currently denies any headaches or dizziness Denies any chest pains, no increased SOB No nausea/vomiting, no abdominal pain No change in bowel habits noted She had her follow up labs done a couple of weeks ago - to discuss her results [facility] Medical History Chest pressure Osteoporosis (~2007) Tubular adenoma of colon (~2019) Post-menopausal Left arm swelling Swelling of lymph node Cardiac pacemaker in situ (~2018) Sick sinus syndrome Overweight (BMI 25.0-29.9) Insomnia Degenerative joint disease Nocturnal leg cramps Dementia without behavioral disturbance GERD (gastroesophageal reflux disease) Constipation Vitamin D deficiency Neuropathy Vitamin B12 deficiency Epilepsy (~1998) Anemia Sinus bradycardia Pure hypercholesterolemia Diabetes mellitus Surgical History History of endoscopy History of ankle surgery (~2011) History of partial gastrectomy History of colonoscopy History of pacemaker (~2018) History of hysterectomy Family History Father Medical history unknown Mother No problems noted. Daughter No problems noted. Son No problems noted. 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 1. Little interest or pleasure in doing things: not at all 2. Feeling down, depressed, or hopeless: not at all 3. Trouble falling or staying asleep, or sleeping too much: several days 4. Feeling tired or having little energy: several days 5. Poor appetite or overeating: several days 6. Feeling bad about yourself - or that you are a failure or have let yourself or your family down: not at all 7. Trouble concentrating on things, such as reading the newspaper or watching television: not at all 8. Moving or speaking so slowly that other people could have noticed. Or the opposite - being so fidgety or restless that you have been moving around a lot more than usual: several days 9. Thoughts that you would be better off or of hurting yourself in some way: not at all Total score: 4 Depression Screening Interpretation: Positive Depression Screening Follow-up: Follow-up Visit Requested Depression Screening Done: Yes 75642 - PHQ-9 Billing: Yes Source: Developed by Drs. Yash Harris, Noemi Kaur, Alexander Parnell and colleagues, with an educational brittany from [employer]. Thrive Questionnaire Date Thrive assessed: 07/05/24 I am a: Patient What is your living situation today?: I have a steady place to live Within the past 12 months, did the food you bought not last and you didn't have the money to get more?: Never true Within the past 12 months, did you worry whether your food would run out before you got money to buy more?: Never true Do you have trouble paying for medicines?: No Do you have trouble getting transportation to medical appointments?: No Do you have trouble paying your heating and electricity bill?: No Do you have trouble taking care of your child, family member or friend?: No Do you have trouble with day-to-day activities such as bathing, preparing meals, shopping, managing finances, etc.?: No Are you currently unemployed and looking for a job?: No Are you interested in more education?: No Please select the resources that you would like help with: None Currently or been in a relationship where the following occur: No concerns reported THRIVE Score: 0 AUDIT C Alcohol Use Questionnaire (AUDIT-C) 1. How often do you have a drink containing alcohol?: Never 3. How often do you have six or more drinks on one occasion?: Never Total Score: 0 Score Reviewed/Action Taken: Yes SHER-7 AMB Questionnaire SHER-7 Date SHER - 7 assessed: 07/05/24 Feeling nervous, anxious, or on edge: 0 = Not at all Not being able to stop or control worryin = Not at all Worrying too much about different things: 0 = Not at all Trouble relaxin = Not at all Being so restless that it is hard to sit still: 0 = Not at all Becoming easily annoyed or irritable: 0 = Not at all Feeling afraid as if something awful might happen: 0 = Not at all Total SHER-7 score (0-4 normal; 5-9 mild; 10-14 moderate; 15-21 severe): 0 Source: Developed by Drs. Yash Harris, Noemi Kaur, Alexander Parnell and colleagues, with an educational brittany from [employer]. Review of Systems Const Denies chills, Reports fatigue, Denies fever(s) and Denies headache(s) ENT Denies dysphagia, Denies dizziness, Denies otalgia, Denies headache(s), Denies neck pain, Denies odynophagia and Denies sore throat Card Denies chest pain, Denies palpitations and Denies dyspnea Resp Denies chest congestion, Denies cough and Denies dyspnea GI Denies abdominal pain, Reports constipation, Denies dysphagia, Denies heartburn, Denies diarrhea, Denies nausea, Denies odynophagia and Denies vomiting Denies difficulty voiding, Denies nocturia, Denies dysuria and Denies urinary urgency Musc Denies back pain and Denies neck pain Skin/Breast Denies rash Neuro Denies dizziness, Denies headache(s) and Reports radicular pain (improved on Gabapentin) Endo Reports fatigue and Denies palpitations Physical exam (Primary Care) Vital Signs: Last Vital Signs Pulse 113 H 07/05/24 10:45 BP 110/62 07/05/24 10:45 Pulse Ox 97 07/05/24 10:45 Oxygen Delivery Method Room Air 07/05/24 10:45 BMI result Body Mass Index 19.3 Tobacco/Smoking Status: Tobacco use Status Tobacco use date assessed 07/05/24 07/05/24 10:48 Patient Tobacco Use Status Former Tobacco user 07/05/24 10:48 Tobacco use type Cigarette 07/05/24 10:48 e-Cigarette/Vaping Use Never Used 07/05/24 10:48 PHQ-9: PHQ-9 Score PHQ-9: Total score 4 07/05/24 10:48 Depression Screening Interpretation: Positive Depression Screening Follow-up: Follow-up Visit Requested Thrive Assessment: Date of Thrive Assessment Date Thrive assessed 07/05/24 07/05/24 10:48 Currently or been in a relationship where the following occur: No concerns reported Const General: no acute distress and alert HENMT Ears: TM's normal bilaterally and EAC's normal Throat: Yes posterior oropharynx normal and Yes tonsils normal (no TP c ongestion) Neck Neck: Yes no lymphadenopathy and Yes supple Thyroid: Thyroid normal Resp Auscultation: clear to auscultation bilaterally, no rales and no wheezes Cardio Rate: regular rate Rhythm: regular rhythm Heart sounds: no murmurs GI Palpation (GI): Soft to palpation and nontender Auscultation: normal bowel sounds General: Yes no CVA tenderness Back/Spine/Pelvis Back: no CVA tenderness Thoracic/Lumbar Spine: No lumbar spinal tenderness Skin Rashes: no rashes Extrem General: No clubbing, No cyanosis and Yes edema (1+ bipedal edema) Left upper extremity: shoulder/upper arm Details: tenderness (mild) Location: of the A-C joint; no swelling Right lower extremity: normal to inspection Left lower extremity: normal to inspection Results Reviewed Results Reviewed: Laboratory Tests 06/24/24 06/24/24 06/24/24 11:46 13:16 14:41 WBC Hgb Hct Plt Count Sodium Potassium Creatinine Estimated GFR Fasting Glucose 93 Hemoglobin A1c % 6.2 H Calcium Magnesium AST ALT B-Natriuretic Peptide Triglycerides 83 Cholesterol 153 LDL Cholesterol, Calc 63 HDL Cholesterol 74 Lipase Vitamin B12 1587 H 25-OH Vitamin D Total 58.7 TSH 0.67 Ur Specific [place] 1.020 Urine Protein Trace Urine Glucose (UA) Negative Urine Blood Negative Urine Nitrite Negative Ur Leukocyte Esterase Large (3+) H Microalb/Creat Ratio 16.1 Levetiracetam 24.9 06/26/24 15:43 WBC 4.2 L Hgb 10.0 L Hct 30.0 L Plt Count 166 Sodium 142 Potassium 4.1 Creatinine 0.82 Estimated GFR > 60 Fasting Glucose Hemoglobin A1c % Calcium 8.6 D Magnesium 1.6 AST 40 H ALT 40 H B-Natriuretic Peptide 236 H Triglycerides Cholesterol LDL Cholesterol, Calc HDL Cholesterol Lipase 21 Vitamin B12 25-OH Vitamin D Total TSH Ur Specific [place] Urine Protein Urine Glucose (UA) Urine Blood Urine Nitrite Ur Leukocyte Esterase Microalb/Creat Ratio Levetiracetam Coding Level of Care Code Est Pt Level 4 (89597) Diagnoses Stasis edema of both lower extremities I87.303 Pure hypercholesterolemia E78.00 Type 2 diabetes mellitus with diabetic neuropathy, without long-term current use of insulin E11.40 Diabetes mellitus type: type 2 Diabetes mellitus ocean transportation intermediary insulin use: without ocean transportation intermediary use Diabetes mellitus complication status: with neurologic complications Diabetes mellitus complication detail: with unspecified neuropathy Sinus bradycardia R00.1 Anemia, unspecified type D64.9 Anemia type: unspecified type Nonintractable epilepsy without status epilepticus, unspecified epilepsy type G40.909 Epilepsy type: unspecified Intractability: not intractable Status epilepticus: without status epilepticus Vitamin B12 deficiency E53.8 Neuropathy G62.9 Vitamin D deficiency E55.9 Nocturnal leg cramps G47.62 Constipation, unspecified constipation type K59.00 Constipation type: unspecified constipation type Gastroesophageal reflux disease without esophagitis K21.9 Esophagitis presence: without esophagitis Dementia without behavioral disturbance F03.90 Osteoarthritis, unspecified osteoarthritis type, unspecified site M19.90 Osteoarthritis location: unspecified site Osteoarthritis type: unspecified Glaucoma, unspecified glaucoma type, unspecified laterality H40.9 Glaucoma type: unspecified Laterality: unspecified laterality Insomnia, unspecified type G47.00 Insomnia type: unspecified Additional Codes PHQ-9 - 43601 - PHQ-9 Billing: Yes ([id number]) Assessment & Plan Assessment & Plan (1) Stasis edema of both lower extremities: Code(s): I87.303 - Chronic venous hypertension (idiopathic) without complications of bilateral lower extremity Category: Medical Plan: Discussed with patient and her son that we will hold off on starting patient on oral diuretics as we do not want to risk dropping her blood pressure too low or cause her to get dehydrated as she already has poor oral intake and does not usually drink much all throughout the day Have also reassured them that based on her recent lab results her edema does not appear to be predominantly due to cardiac or renal causes Will have her try wearing some compression stockings to help minimize / reduce her edema She is also reminded to try to keep her legs elevated as often as she can throughout the day and at night when she is sleeping (2) Pure hypercholesterolemia: Code(s): E78.00 - Pure hypercholesterolemia, unspecified Category: Medical Plan: Results of her labs done a couple of weeks ago reviewed and discussed with patient and her son Reinforced low cholesterol diet Continue Atorvastatin 40 mg QD Will recheck her labs and fasting lipids in 4 months for follow-up (3) Diabetes mellitus: Code(s): E11.9 - Type 2 diabetes mellitus without complications Category: Medical Qualifiers: Diabetes mellitus type: type 2 Diabetes mellitus ocean transportation intermediary insulin use: without ocean transportation intermediary use Diabetes mellitus complication status: with neurologic complications Diabetes mellitus complication detail: with unspecified neuropathy Qualified Code(s): E11.40 - Type 2 diabetes mellitus with diabetic neuropathy, unspecified Plan: Her HgbA1c was at 6.2% on her labs done a couple of weeks ago (her in-office HgbA1c was previously at 6.6% a few months ago) - goal is at least <7.0% Reinforced diabetic diet Continue Metformin 500 mg BID (4) Sinus bradycardia: Comment: (s/p [employer]tr[employer] DCPP placed 2019) Code(s): R00.1 - Bradycardia, unspecified Category: Medical Plan: Due to sick sinus syndrome - S/P dual-chamber permanent pacemaker insertion in 2019 with no recurrence of symptoms since She continues to be monitored remotely by cardiology for any untoward or irregular rhythms or abnormalities Follow up with cardiology as scheduled (5) Anemia: Code(s): D64.9 - Anemia, unspecified Category: Medical Qualifiers: Anemia type: unspecified type Qualified Code(s): D64.9 - Anemia, unspecified Plan: S/P IV iron infusion x 1 back in April 2022 and she apparently has not needed any more infusions afterwards She was recommended by hematology to continue on Procrit but only if her Hgb drops below 10 .5 Her H/H is again low at 10.0/30.0 on her recent labs and they are advised to reach out to hematology MIKE for further recommendations - will likely need to get Procrit injection again Will continue to monitor her CBC regularly (6) Epilepsy: Onset Date: ~1998 Comment: Complex partial seizure Code(s): G40.909 - Epilepsy, unspecified, not intractable, without status epilepticus Category: Medical Qualifiers: Epilepsy type: unspecified Intractability: not intractable Status epil epticus: without status epilepticus Qualified Code(s): G40.909 - Epilepsy, unspecified, not intractable, without status epilepticus Plan: Complex partial seizure with no recurrence Continue Levetiracetam 750 mg BID Follow-up with Neurology as scheduled (7) Vitamin B12 deficiency: Comment: (related to partial gastrectomy for PUD) Code(s): E53.8 - Deficiency of other specified B group vitamins Category: Medical Plan: Continue Vitamin B12 tablets 1000 mcg although her B12 level is very high on her recent labs and they have been instructed to try cutting back on her B12 tablets to every other day for now Will continue to monitor her B12 level regularly (8) Neuropathy: Code(s): G62.9 - Polyneuropathy, unspecified Category: Medical Plan: EMG and NCV done back in April 2018 showed findings consistent with peripheral neuropathy Repeat NCV & EMG done in February 2023 showed (+) 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 and findings that are consistent with minimal chronic neuropathic changes in the EDB muscle States that her symptoms have improved a lot on Gabapentin, which she currently still takes at 300 mg Q HS (9) Vitamin D deficiency: Code(s): E55.9 - Vitamin D deficiency, unspecified Category: Medical Plan: Continue Vitamin-D3 2000 units QD (10) Nocturnal leg cramps: Code(s): G47.62 - Sleep related leg cramps Category: Medical Plan: Continue Ropinirole 0.25 mg Q HS and Tizanidine 2 mg Q HS PRN for leg cramps (11) Constipation: Code(s): K59.00 - Constipation, unspecified Category: Medical Qualifiers: Constipation type: unspecified constipation type Qualified Code(s): K59.00 - Constipation, unspecified Plan: Patient is encouraged again on increased oral fluids and dietary fiber Continue MiraLax 17 g daily and Colace 100 mg 1 to 2 times a day as needed; was also started on Amitiza 8 mcg BID by GI Follow up with GI (Dr. Milian) as scheduled (12) GERD (gastroesophageal reflux disease): Code(s): K21.9 - Gastro-esophageal reflux disease without esophagitis Category: Medical Qualifiers: Esophagitis presence: without esophagitis Qualified Code(s): K21.9 - Gastro-esophageal reflux disease without esophagitis Plan: Dietary restrictions reinforced Continue Omeprazole 20 mg QD (13) Dementia without behavioral disturbance: Code(s): F03.90 - Unspecified dementia, unspecified severity, without behavioral disturbance, psychotic disturbance, mood disturbance, and anxiety Category: Medical Plan: Patient's dementia has been stable for a while now, per family Follow up with Neurology as scheduled (14) Degenerative joint disease: Code(s): M19.90 - Unspecified osteoarthritis, unspecified site Category: Medical Qualifiers: Osteoarthritis location: unspecified site Osteoarthritis type: unspecified Qualified Code(s): M19.90 - Unspecified osteoarthritis, unspecified site Plan: S/P? medial and lateral malleolar fractures of the left ankle in? 2011 -? symptoms have been mostly manageable (15) Glaucoma: Code(s): H40.9 - Unspecified glaucoma Category: Medical Qualifiers: Glaucoma type: unspecified Laterality: unspecified laterality Qualified Code(s): H40.9 - Unspecified glaucoma Plan: Continue Brimonidine eyedrops 0.1% BID Follow up with ophthalmology as scheduled (16) Insomnia: Code(s): G47.00 - Insomnia, unspecified Category: Medical Qualifiers: Insomnia type: unspecified Qualified Code(s): G47.00 - Insomnia, unspecified Plan: Sleep hygiene reinforced Continue Melatonin 5 mg once a day at bedtime as needed Plan Follow up in 4 months Orders: Orders Complete Blood Count Auto Diff 4 Months D64.9 - Anemia, unspecified TSH reflex Free T4 4 Months E78.00 - Pure hypercholesterolemia, unspecified UA CC w/rflx Micro + Cult 4 Months R30.0 - Dysuria Microalbumin, Random (w Creat) 4 Months E11.9 - Type 2 diabetes mellitus without complications Hemoglobin A1c 4 Months E11.9 - Type 2 diabetes mellitus without complications B Type Natriuretic Peptide 4 Months I50.9 - Heart failure, unspecified Vitamin D 25-OH Total 4 Months E55.9 - Vitamin D deficiency, unspecified Vitamin B12 and Folate 4 Months E53.8 - Deficiency of other specified B group vitamins Levetiracetam Keppra 4 Months G40.909 - Epilepsy, unspecified, not intractable, without status epilepticus Comprehensive [place]. Panel Fast 4 Months E78.00 - Pure hypercholesterolemia, unspecified Lipid Panel 4 Months E78.00 - Pure hypercholesterolemia, unspecified Medications: New [COMPRESSION STOCKINGS - knee-high (medium compression)] As directed 2 ea 0RF edema of lower extremities I87.303 - Chronic venous hypertension (idiopathic) without complications of bilateral lower extremity
== END 2024-07-05 11:20 | disposition home or self-care (01) ==
PROVIDERS: PCP Internal Medicine; Visit Provider Internal Medicine
DX: E11.40 Type 2 diabetes mellitus with diabetic neuropathy, unspecified (principal); G40.909 Epilepsy, unspecified, not intractable, without status epilepticus; F03.90 Unspecified dementia, unspecified severity, without behavioral disturbance, psychotic disturbance, mood disturbance, and anxiety; I87.303 Chronic venous hypertension (idiopathic) without complications of bilateral lower extremity; E78.00 Pure hypercholesterolemia, unspecified; R00.1 Bradycardia, unspecified; D64.9 Anemia, unspecified; E53.8 Deficiency of other specified B group vitamins; G62.9 Polyneuropathy, unspecified; E55.9 Vitamin D deficiency, unspecified; G47.62 Sleep related leg cramps; K59.00 Constipation, unspecified

== ENCOUNTER → 2024-07-05 10:42 | Outpatient (BNVA) | payer MEDICARE, SELFPAY | PROVIDERS: PCP Internal Medicine; Visit Provider Internal Medicine | DX: I87.303 Chronic venous hypertension (idiopathic) without complications of bilateral lower extremity (principal); E78.00 Pure hypercholesterolemia, unspecified; E11.40 Type 2 diabetes mellitus with diabetic neuropathy, unspecified; R00.1 Bradycardia, unspecified; D64.9 Anemia, unspecified; G40.909 Epilepsy, unspecified, not intractable, without status epilepticus; E53.8 Deficiency of other specified B group vitamins; E55.9 Vitamin D deficiency, unspecified; G62.9 Polyneuropathy, unspecified; G47.62 Sleep related leg cramps; K59.00 Constipation, unspecified; K21.9 Gastro-esophageal reflux disease without esophagitis; F03.90 Unspecified dementia, unspecified severity, without behavioral disturbance, psychotic disturbance, mood disturbance, and anxiety; M19.90 Unspecified osteoarthritis, unspecified site; H40.9 Unspecified glaucoma; G47.00 Insomnia, unspecified | CPT/HCPCS: 96127; 99212 ==

== ENCOUNTER 2024-07-31 13:22 | Outpatient (AMB) | payer MEDICARE, SELFPAY ==
[2024-07-31 13:23] VITALS: BP 116/80; PULSE 84; O2SAT 99; BMI 19.6
--- NOTE | 2024-07-31 13:23 | A.OFFPC_ITS ---
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: No Accompanied by: Self / Same As Patient Allergies Penicillins Allergy (Intermediate, Verified 07/31/24 14:04) RASH Medication List - Last Reconciled 07/31/24 by Cuate Oscar MD acetaminophen 650 mg PO Q6H PRN alendronate 70 mg PO MO atorvastatin 40 mg PO BEDTIME 90 days bisacodyl (Dulcolax (bisacodyl)) 10 mg (2 x 5 mg) PO BEDTIME PRN 30 days cholecalciferol (vitamin D3) (Vitamin D3) 50 mcg PO BID [COMPRESSION STOCKINGS - knee-high (medium compression) As directed] cyanocobalamin (vitamin B-12) 1,000 mcg PO DAILY docusate sodium 100 mg PO BID PRN donepezil 5 mg PO BEDTIME ferrous sulfate 325 mg PO SuTuWeThFrSa@[id number] gabapentin 300 mg PO BID hydrocortisone 2.5% 1 appl UT Q8-12H latanoprost 0.005% 1 drp ophthalmic (eye) BEDTIME levetiracetam 500 mg PO BID meclizine 12.5 mg PO TID PRN metformin 500 mg PO BID 90 days nut.tx.gluc.intol,lac-free,soy (Glucerna Therapeutic Nutrition oral liquid) 1 can orally 3 times a day with meals; 30 days omeprazole 20 mg PO BEDTIME sennosides (senna) 17.2 mg (2 x 8.6 mg) PO BID PRN 90 days Tobacco use date assessed: 07/31/24 Fall risk assessment: 2 + Falls in past year Last assessed Fall Risk: 07/31/24 Dental Screening Dental Screen Date: 07/31/24 Did you have a dental visit in the last 12 months?: No Did you have a dental problem in the last 6 months where you did not have access to dental care?: No Was dental information given to patient?: No HPI [facility] 06/26 Feet Swelling L Flank Pain HPI Details Patient comes in today for her follow-up visit She went to the ER last month on 06/26/2024 for increased swelling of both feet and left flank pain Workups done in the ER were unrevealing at the time She was advised that her lower extremity swelling was likely due to dependent edema and she has no other concerning signs of pulmonary or cardiac failure at the time and was advised on leg elevation and wearing of compression stockings to help alleviate her symptoms Her left flank pain was determined to be likely due to musculoskeletal pain as her examinations have all come back negative Patient states that she currently feels okay but continues to note increased and recurrent swelling of both lower legs, ankles and feet She denies any fever, headaches or dizziness Denies any chest pains, no increased shortness of breath No nausea/vomiting, no abdominal pain No change in bowel habits noted [facility] Medical History Chest pressure Osteoporosis (~2007) Tubular adenoma of colon (~2019) Post-menopausal Left arm swelling Swelling of lymph node Cardiac pacemaker in situ (~2018) Sick sinus syndrome Overweight (BMI 25.0-29.9) Insomnia Degenerative joint disease Nocturnal leg cramps Dementia without behavioral disturbance GERD (gastroesophageal reflux disease) Constipation Vitamin D deficiency Neuropathy Vitamin B12 deficiency Epilepsy (~1998) Anemia Sinus bradycardia Pure hypercholesterolemia Diabetes mellitus Surgical History History of endoscopy History of ankle surgery (~2011) History of partial gastrectomy History of colonoscopy History of pacemaker (~2018) History of hysterectomy Family History Father Medical history unknown Mother No problems noted. Daughter No problems noted. Son No problems noted. 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 1. Little interest or pleasure in doing things: not at all 2. Feeling down, depressed, or hopeless: not at all 3. Trouble falling or staying asleep, or sleeping too much: several days 4. Feeling tired or having little energy: several days 5. Poor appetite or overeating: several days 6. Feeling bad about yourself - or that you are a failure or have let yourself or your family down: not at all 7. Trouble concentrating on things, such as reading the newspaper or watching television: not at all 8. Moving or speaking so slowly that other people could have noticed. Or the opposite - being so fidgety or restless that you have been moving around a lot more than usual: several days 9. Thoughts that you would be better off or of hurting yourself in some way: not at all Total score: 4 Depression Screening Interpretation: Positive Depression Screening Follow-up: Follow-up Visit Requested Depression Screening Done: Yes 40122 - PHQ-9 Billing: Yes Source: Developed by Drs. Yash Harris, Noemi Kaur, Alexander Parnell and colleagues, with an educational brittany from [employer]. Thrive Questionnaire Date Thrive assessed: 07/31/24 I am a: Patient What is your living situation today?: I have a steady place to live Within the past 12 months, did the food you bought not last and you didn't have the money to get more?: Never true Within the past 12 months, did you worry whether your food would run out before you got money to buy more?: Never true Do you have trouble paying for medicines?: No Do you have trouble getting transportation to medical appointments?: No Do you have trouble paying your heating and electricity bill?: No Do you have trouble taking care of your child, family member or friend?: No Do you have trouble with day-to-day activities such as bathing, preparing meals, shopping, managing finances, etc.?: No Are you currently unemployed and looking for a job?: No Are you interested in more education?: No Please select the resources that you would like help with: None Currently or been in a relationship where the following occur: No concerns reported THRIVE Score: 0 AUDIT C Alcohol Use Questionnaire (AUDIT-C) 1. How often do you have a drink containing alcohol?: Never 3. How often do you have six or more drinks on one occasion?: Never Total Score: 0 Score Reviewed/Action Taken: Yes SHER-7 AMB Questionnaire SHER-7 Date SHER - 7 assessed: 07/31/24 Feeling nervous, anxious, or on edge: 0 = Not at all Not being able to stop or control worryin = Not at all Worrying too much about different things: 0 = Not at all Trouble relaxin = Not at all Being so restless that it is hard to sit still: 0 = Not at all Becoming easily annoyed or irritable: 0 = Not at all Feeling afraid as if something awful might happen: 0 = Not at all Total SHER-7 score (0-4 normal; 5-9 mild; 10-14 moderate; 15-21 severe): 0 Source: Developed by Drs. Yash Harris, Noemi Kaur, Alexander Parnell and colleagues, with an educational brittany from [employer]. Physical exam (Primary Care) Vital Signs: Last Vital Signs Pulse 84 07/31/24 13:23 BP 116/80 07/31/24 13:23 Pulse Ox 99 07/31/24 13:23 Oxygen Delivery Method Room Air 07/31/24 13:23 BMI result Body Mass Index 19.6 Tobacco/Smoking Status: Tobacco use Status Tobacco use date assessed 07/31/24 07/31/24 13:25 Patient Tobacco Use Status Former Tobacco user 07/31/24 13:25 Tobacco use type Cigarette 07/31/24 13:25 e-Cigarette/Vaping Use Never Used 07/31/24 13:25 PHQ-9: PHQ-9 Score PHQ-9: Total score 4 07/31/24 14:01 Depression Screening Interpretation: Positive Depression Screening Follow-up: Follow-up Visit Requested Thrive Assessment: Date of Thrive Assessment Date Thrive assessed 07/31/24 07/31/24 13:27 Currently or been in a relationship where the following occur: No concerns reported Coding Level of Care Code Est Pt Level 4 (79008) Diagnoses Stasis edema of both lower extremities I87.303 Pure hypercholesterolemia E78.00 Type 2 diabetes mellitus with diabetic neuropathy, without long-term current use of insulin E11.40 Diabetes mellitus type: type 2 Diabetes mellitus nursing home insulin use: without vermin exterminator use Diabetes mellitus complication status: with neurologic complications Diabetes mellitus complication detail: with unspecified neuropathy Sinus bradycardia R00.1 Anemia, unspecified type D64.9 Anemia type: unspecified type Nonintractable epilepsy without status epilepticus, unspecified epilepsy type G40.909 Epilepsy type: unspecified Intractability: not intractable Status epilepticus: without status epilepticus Vitamin B12 deficiency E53.8 Neuropathy G62.9 Vitamin D deficiency E55.9 Nocturnal leg cramps G47.62 Constipation, unspecified constipation type K59.00 Constipation type: unspecified constipation type Gastroesophageal reflux disease without esophagitis K21.9 Esophagitis presence: without esophagitis Dementia without behavioral disturbance F03.90 Osteoarthritis, unspecified osteoarthritis type, unspecified site M19.90 Osteoarthritis location: unspecified site Osteoarthritis type: unspecified Glaucoma, unspecified glaucoma type, unspecified laterality H40.9 Glaucoma type: unspecified Laterality: unspecified laterality Insomnia, unspecified type G47.00 Insomnia type: unspecified Additional Codes PHQ-9 - 12106 - PHQ-9 Billing: Yes ([id number]) Assessment & Plan Assessment & Plan (1) Stasis edema of both lower extremities: Code(s): I87.303 - Chronic venous hypertension (idiopathic) without complications of bilateral lower extremity Category: Medical Plan: Have discussed again with patient and her son that we are holding off on starting patient on any oral diuretics to help offset or alleviate her lower extremity edema as we do not want to risk dropping her blood pressure too low or cause her to get dehydrated, considering her age, and also as she already has poor oral intake to begin with and does not usually drink much at all throughout the day Have also reassured them that based on her recent lab results and work ups, her edema does not appear to be due to any significant cardiac, pulmonary or renal causes Will again send her for some labs MIKE for further evaluation due to her recent increasing edema and patient's concerns about her symptoms Have advised her again to try wearing some compression stockings to help minimize / reduce her edema She is also reminded again to try keeping her legs elevated as often as she can throughout the day and at night when she is sleeping (2) Pure hypercholesterolemia: Code(s): E78.00 - Pure hypercholesterolemia, unspecified Category: Medical Plan: Reinforced low cholesterol diet Continue Atorvastatin 40 mg QD Will recheck her labs and fasting lipids as scheduled in about 3 months for follow-up (3) Diabetes mellitus: Code(s): E11.9 - Type 2 diabetes mellitus without complications Category: Medical Qualifiers: Diabetes mellitus type: type 2 Diabetes mellitus nursing home insulin use: without vermin exterminator use Diabetes mellitus complication status: with neurologic complications Diabetes mellitus complication detail: with unspecified neuropathy Qualified Code(s): E11.40 - Type 2 diabetes mellitus with diabetic neuropathy, unspecified Plan: Her HgbA1c was at 6.2% on her labs done last month (her in-office HgbA1c was previously at 6.6% a few months ago) - goal is at least <7.0% Reinforced diabetic diet Continue Metformin 500 mg BID (4) Sinus bradycardia: Comment: (s/p Medtronic DCPP placed 2019) Code(s): R00.1 - Bradycardia, unspecified Category: Medical Plan: This is primarily due to sick sinus syndrome - she is S/P dual-chamber permanent pacemaker insertion in 2019 with no recurrence of symptoms since She continues to be monitored remotely by cardiology for any untoward or irregular rhythms or abnormalities Follow up with cardiology as scheduled (5) Anemia: Code(s): D64.9 - Anemia, unspecified Category: Medical Qualifiers: Anemia type: unspecified type Qualified Code(s): D64.9 - Anemia, unspecified Plan: S/P IV iron infusion x 1 back in April 2022 and she apparently has not needed any more infusions afterwards She was recommended by hematology to continue on Procrit but only if her Hgb drops below 10 .5 Her H/H is again low at 10.0/30.0 on her most recent labs last month and they were advised to reach out to hematology MIKE for further recommendations - she will likely need to get Procrit injection again soon Will continue to monitor her CBC regularly (6) Epilepsy: Onset Date: ~1998 Comment: Complex partial seizure Code(s): G40.909 - Epilepsy, unspecified, not intractable, without status epilepticus Category: Medical Qualifiers: Epilepsy type: unspecified Intractability: not intractable Status epilepticus: without status epilepticus Qualified Code(s): G40.909 - Epilepsy, unspecified, not intractable, without status epilepticus Plan: Complex partial seizure with no recurrence in years now Continue Levetiracetam 750 mg BID Follow-up with Neurology as scheduled (7) Vitamin B12 deficiency: Comment: (related to partial gastrectomy for PUD) Code(s): E53.8 - Deficiency of other specified B group vitamins Category: Medical Plan: Continue Vitamin B12 tablets 1000 mcg although her B12 level is very high on her recent labs and they have been instructed to cut back on her B12 tablets to every other day Will continue to monitor her B12 level regularly (8) Neuropathy: Code(s): G62.9 - Polyneuropathy, unspecified Category: Medical Plan: EMG and NCV done back in April 2018 showed findings consistent with peripheral neuropathy Repeat NCV & EMG done in February 2023 showed (+) 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 and findings that are consistent with minimal chronic neuropathic changes in the EDB muscle States that her symptoms have improved a lot on Gabapentin, which she currently still takes at 300 mg Q HS (9) Vitamin D deficiency: Code(s): E55.9 - Vitamin D deficiency, unspecified Category: Medical Plan: Continue Vitamin-D3 2000 units QD (10) Nocturnal leg cramps: Code(s): G47.62 - Sleep related leg cramps Category: Medical Plan: Continue Ropinirole 0.25 mg Q HS and Tizanidine 2 mg Q HS PRN for leg cramps (11) Constipation: Code(s): K59.00 - Constipation, unspecified Category: Medical Qualifiers: Constipation type: unspecified constipation type Qualified Code(s): K59.00 - Constipation, unspecified Plan: Patient is encouraged again on increased oral fluids and dietary fiber Continue MiraLax 17 g daily and Colace 100 mg 1 to 2 times a day as needed; was also started on Amitiza 8 mcg BID by GI Follow up with GI (Dr. Milian) as scheduled (12) GERD (gastroesophageal reflux disease): Code(s): K21.9 - Gastro-esophageal reflux disease without esophagitis Category: Medical Qualifiers: Esophagitis presence: without esophagitis Qualified Code(s): K21.9 - Gastro-esophageal reflux disease without esophagitis Plan: Dietary restrictions reinforced Continue Omeprazole 20 mg QD (13) Dementia without behavioral disturbance: Code(s): F03.90 - Unspecified dementia, unspecified severity, without behavioral disturbance, psychotic disturbance, mood disturbance, and anxiety Category: Medical Plan: Patient's dementia has been stable for a while now, per family Follow up with Neurology as scheduled (14) Degenerative joint disease: Code(s): M19.90 - Unspecified osteoarthritis, unspecified site Category: Medical Qualifiers: Osteoarthritis location: unspecified site Osteoarthritis type: unspecified Qualified Code(s): M19.90 - Unspecified osteoarthritis, unspecified site Plan: S/P? medial and lateral malleolar fractures of the left ankle in? 2011 -? symptoms have been mostly manageable (15) Glaucoma: Code(s): H40.9 - Unspecified glaucoma Category: Medical Qualifiers: Glaucoma type: unspecified Laterality: unspecified laterality Qualified Code(s): H40.9 - Unspecified glaucoma Plan: Continue Brimonidine eyedrops 0.1% BID Follow up with ophthalmology as scheduled (16) Insomnia: Code(s): G47.00 - Insomnia, unspecified Category: Medical Qualifiers: Insomnia type: unspecified Qualified Code(s): G47.00 - Insomnia, unspecified Plan: Sleep hygiene reinforced Continue Melatonin 5 mg once a day at bedtime as needed Plan Follow-up as scheduled in October 2024 Orders: Orders Comprehensive Met. Panel 07/31/24 R60.0 - Localized edema B Type Natriuretic Peptide 07/31/24 I50.9 - Heart failure, unspecified, R60.0 - Localized edema TSH reflex Free T4 07/31/24 E78.00 - Pure hypercholesterolemia, unspecified, R60.0 - Localized edema Erythrocyte Sedimentation Rate 07/31/24 M79.7 - Fibromyalgia, R60.0 - Localized edema C Reactive Protein 07/31/24 R60.0 - Localized edema XR foot LT 2V 07/31/24 M79.672 - Pain in left foot Complete Blood Count Auto Diff 07/31/24 D64.9 - Anemia, unspecified, R60.0 - Localized edema UA CC w/rflx Micro + Cult 07/31/24 R30.0 - Dysuria, R60.0 - Localized edema
== END 2024-07-31 14:17 | disposition home or self-care (01) ==
PROVIDERS: PCP Internal Medicine; Visit Provider Internal Medicine
DX: E11.40 Type 2 diabetes mellitus with diabetic neuropathy, unspecified (principal); G40.909 Epilepsy, unspecified, not intractable, without status epilepticus; F03.90 Unspecified dementia, unspecified severity, without behavioral disturbance, psychotic disturbance, mood disturbance, and anxiety; I87.303 Chronic venous hypertension (idiopathic) without complications of bilateral lower extremity; E78.00 Pure hypercholesterolemia, unspecified; R00.1 Bradycardia, unspecified; D64.9 Anemia, unspecified; E53.8 Deficiency of other specified B group vitamins; G62.9 Polyneuropathy, unspecified; E55.9 Vitamin D deficiency, unspecified; G47.62 Sleep related leg cramps; K59.00 Constipation, unspecified

== ENCOUNTER 2024-07-31 13:22 | Outpatient (REF) | payer MEDICARE, SELFPAY ==
--- NOTE | ~2024-07-31 | XR_ITS ---
EXAMINATION: XR FOOT, LEFT CLINICAL INFORMATION: M79.672 - Pain in left foot COMPARISON: None available. TECHNIQUE: AP, lateral, and oblique views of the left foot. FINDINGS: Bones are osteopenic. Osseous structures of the foot are intact. Joint spaces are well-maintained. Postsurgical changes with plate and screw fixation in the distal fibula and a screw fixation through the medial malleolus of the distal tibia. No evidence of hardware complications. XR/XR foot LT 2V IMPRESSION: No acute process. Postsurgical changes in the ankle. Electronically signed by: Amrit Ragsdale MD 08/01/2024 09:42 AM EST
[2024-07-31 15:06] LABS: MANUAL DIFF FLAG NO
[2024-07-31 15:52] LABS: Basophils Percent Auto 0.5 % (0-2); Eosinophils Absolute Auto 0.1 X10*3/uL (0.0-0.4); Eosinophils Percent Auto 1.3 % (0-4); Hematocrit 32.7 % (37.0-47.0); Hemoglobin 10.5 g/dl (12.0-16.0); Imm Gran Abs Auto 0.01 X10*3/uL (0.00-0.03); Imm Gran Pct Auto 0.3 % (0.0-0.4); Lymphocytes Absolute Auto 1.8 X10*3/uL (1.2-4.9); Lymphocytes Percent Auto 46.3 % (20-40); Mean Corpuscular HGB Conc 32.1 g/dl (31.0-35.0); Mean Corpuscular Hemoglobin 31.4 pg (27.0-33.0); Mean Corpuscular Volume 97.9 fL (80.0-98.0); Mean Platelet Volume 11.7 fL (9.4-12.3); Monocytes Absolute Auto 0.5 X10*3/uL (0.1-1.2); Monocytes Percent Auto 12.6 % (2-11); Neutrophils Absolute Auto 1.6 x10*3/uL (2.0-8.3); Platelet Count 167 X10*3/uL (160-400); Red Blood Count 3.34 X10*6/uL (4.20-5.50); Red Cell Distribution Width 14.8 % (11.0-16.0)
[2024-07-31 15:54] LABS: Appearance Urine Clear; Color Urine Yellow; Glucose Urine UA Negative (Negative); Leukocyte Esterase Urine Moderate (2+) (Negative); Nitrite Urine Negative (Negative); PH 6.5 (5.0-9.0); Specific Gravity - Urine 1.015 (1.005-1.025); UMIC TRIGGER UACC YES; Urine Blood Negative (Negative); Urine Ketones Negative (Negative); Urine Protein Negative (Neg-Trace)
[2024-07-31 16:00] LABS: Bacteria Urine 1+ (None Seen); Hyaline Casts Urine 0-2 /LPF (0-2); RBC Urine 0-2 /HPF (0-2); UACC Culture Trigger YES
[2024-07-31 16:40] LABS: Erythrocyte Sedimentation Rate 10 MM/HR (0-20)
[2024-07-31 16:54] LABS: B Type Natriuretic Peptide 207 pg/mL (<100)
[2024-07-31 17:01] LABS: Albumin Level 3.8 g/dL (3.5-5.0); Anion Gap 13 (12-20); Aspartate Amino Transferase 70 U/L (5-31); Bilirubin Total 0.7 mg/dL (0.0-1.0); Blood Urea Nitrogen 10 mg/dL (9-16); C Reactive Protein < 0.10 mg/dL (< or = 0.50); Calcium 9.2 mg/dL (8.4-10.2); Carbon Dioxide 24 mmol/L (22-29); Chloride 109 mmol/L (96-108); Estimated Glomerular Filt Rate > 60; Glucose Random 101 mg/dL (60-115); Potassium 4.5 mmol/L (3.3-5.1); Sodium 141 mmol/L (135-145); Total Protein 6.8 g/dL (6.5-8.0)
[2024-07-31 17:17] LABS: Alanine Aminotransferase 88 U/L (0-31); Alkaline Phosphatase 61 U/L (39-117)
[2024-07-31 17:21] LABS: TSH reflex Free T4 1.08 uIU/mL (0.32-4.0)
== END 2024-07-31 13:23 | disposition home or self-care (01) ==
LOC: HO.XRAY 13:22
PROVIDERS: PCP Internal Medicine; Visit Provider Internal Medicine
DX: I87.303 Chronic venous hypertension (idiopathic) without complications of bilateral lower extremity (principal); E78.00 Pure hypercholesterolemia, unspecified; E11.40 Type 2 diabetes mellitus with diabetic neuropathy, unspecified; R00.1 Bradycardia, unspecified; D64.9 Anemia, unspecified; G40.909 Epilepsy, unspecified, not intractable, without status epilepticus; E53.8 Deficiency of other specified B group vitamins; G62.9 Polyneuropathy, unspecified; E55.9 Vitamin D deficiency, unspecified; G47.62 Sleep related leg cramps; K59.00 Constipation, unspecified; K21.9 Gastro-esophageal reflux disease without esophagitis; F03.90 Unspecified dementia, unspecified severity, without behavioral disturbance, psychotic disturbance, mood disturbance, and anxiety; M19.90 Unspecified osteoarthritis, unspecified site; H40.9 Unspecified glaucoma; G47.00 Insomnia, unspecified; Z79.899 Other long term (current) drug therapy; Z95.0 Presence of cardiac pacemaker; R60.0 Localized edema; I50.9 Heart failure, unspecified; M79.7 Fibromyalgia; M79.672 Pain in left foot
CPT/HCPCS: 36415; 73620; 80053; 81001; 83880; 84443; 85025; 85652; 86140; 87086; 96127; 99212

== ENCOUNTER → 2024-08-21 23:59 | Outpatient (BNV) | payer MEDICARE, SELFPAY ==
--- NOTE | 2024-09-02 16:47 | MHC.OFFVIS ---
Intake Visit Reasons: Remote device check- Medtronic Allergies Penicillins Allergy (Intermediate, Verified 07/31/24 14:04) [facility] Medical History Chest pressure Osteoporosis (~2007) Tubular adenoma of colon (~2019) Post-menopausal Left arm swelling Swelling of lymph node Cardiac pacemaker in situ (~2018) Sick sinus syndrome Overweight (BMI 25.0-29.9) Insomnia Degenerative joint disease Nocturnal leg cramps Dementia without behavioral disturbance GERD (gastroesophageal reflux disease) Constipation Vitamin D deficiency Neuropathy Vitamin B12 deficiency Epilepsy (~1998) Anemia Sinus bradycardia Pure hypercholesterolemia Diabetes mellitus Surgical History History of endoscopy History of ankle surgery (~2011) History of partial gastrectomy History of colonoscopy History of pacemaker (~2018) History of hysterectomy Family History Father Medical history unknown Mother No problems noted. Daughter No problems noted. Son No problems noted. 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 Pacemaker function is adequate [id number] Cardiac Device Interrogation, pacemaker Procedure code (CPT) selection complete Assessment & Plan Assessment & Plan (1) Cardiac pacemaker in situ: Onset Date: ~2018 Comment: (Medtronic DCPP - placed 12/2018 - pocket revision 10/2021) Code(s): Z95.0 - Presence of cardiac pacemaker Category: Medical Plan: See above Coding Level of Care Code Procedure Only Diagnoses Cardiac pacemaker in situ Z95.0 CPT Codes Cardiac Device Check - Cardiac Device 12: [id number] Cardiac Device Interrogation, pacemaker ([id number])
== END ==
PROVIDERS: PCP Internal Medicine; Visit Provider Internal Medicine Cardiovascular Disease
DX: Z45.018 Encounter for adjustment and management of other part of cardiac pacemaker (principal)
CPT/HCPCS: 93294

== ENCOUNTER 2024-08-22 11:25 | Outpatient (REF) | payer MEDICARE, SELFPAY | END 2024-08-22 11:26 | disposition home or self-care (01) | LOC: HO.MAMMO 11:25 | PROVIDERS: PCP Internal Medicine; Visit Provider Internal Medicine | DX: Z12.31 Encounter for screening mammogram for malignant neoplasm of breast (principal) | CPT/HCPCS: 77063; 77067 ==

== ENCOUNTER → 2024-08-22 11:45 | Outpatient (BNV) | payer MEDICARE, SELFPAY | PROVIDERS: PCP Internal Medicine; Visit Provider Internal Medicine | DX: Z12.31 Encounter for screening mammogram for malignant neoplasm of breast (principal) | CPT/HCPCS: 77063; 77067 ==

== ENCOUNTER 2024-10-02 21:00 | Emergency (ER) | payer MEDICARE, SELFPAY ==
--- NOTE | ~2024-10-02 | XR_ITS ---
CLINICAL HISTORY: sob 1 view chest x-ray Comparison: CR/SR - XR CHEST 2V - 06/26/24 15:27 EST Findings: Left chest wall dual lead cardiac pacing device noted. Heart size normal. Patchy interstitial and airspace opacities in both lungs may represent pulmonary edema or atypical infectious process such as viral pneumonitis. No pleural effusion or pneumothorax. IMPRESSION: 1. Nonspecific bilateral patchy airspace opacities could represent edema or atypical infectious process such as viral pneumonitis. Correlate with CBC and BNP. This document has been electronically signed by: Sebastian Wasserman MD on 10/02/2024 22:01:14
[2024-10-02 21:28] VITALS: BP 127/89; BP 152/58; PULSE 80; PULSE 95; RESP 16; TEMP 39.6; O2SAT 96; BMI 16.6
[2024-10-02 21:47] LABS: MANUAL DIFF FLAG NO
[2024-10-02 21:48] LABS: Basophils Percent Auto 0.4 % (0-2); Eosinophils Percent Auto 0.1 % (0-4); Hematocrit 31.3 % (37.0-47.0); Hemoglobin 10.1 g/dl (12.0-16.0); Imm Gran Abs Auto 0.03 X10*3/uL (0.00-0.03); Imm Gran Pct Auto 0.3 % (0.0-0.4); Lymphocytes Absolute Auto 0.7 X10*3/uL (1.2-4.9); Lymphocytes Percent Auto 7.4 % (20-40); Mean Corpuscular HGB Conc 32.3 g/dl (31.0-35.0); Mean Corpuscular Hemoglobin 30.4 pg (27.0-33.0); Mean Corpuscular Volume 94.3 fL (80.0-98.0); Mean Platelet Volume 11.1 fL (9.4-12.3); Monocytes Absolute Auto 0.9 X10*3/uL (0.1-1.2); Monocytes Percent Auto 9.2 % (2-11); Neutrophils Absolute Auto 8.2 x10*3/uL (2.0-8.3); Neutrophils Percent Auto 82.6 % (45-73); Platelet Count 171 X10*3/uL (160-400); Red Blood Count 3.32 X10*6/uL (4.20-5.50); Red Cell Distribution Width 13.4 % (11.0-16.0); White Blood Count 9.9 X10*3/uL (4.8-10.8)
--- OUTSIDE RECORDS SUMMARY | 2024-10-02 21:51 | XMS_ITS | Clinical Summary ---
Author Organization [facility] [address] [place] [address] [place] [phone] Phone Care Team Providers Care Engineering Aid Name Role Phone Cuate Oscar MD Primary Care Provider + [phone] Allergies Active Allergy Reactions Criticality Noted Date Comments Penicillins Diarrhea 06/27/2023 Medications sennosides 8.6 mg capsule Take 17.2 mg by mouth 2 Times Daily. Active omeprazole (PriLOSEC) [address] capsule Take 1 Capsule by mouth daily. Active docusate sodium (COLACE) 100 mg tablet Take 1 Tablet by mouth at bedtime. Active bisacodyL (DULCOLAX) 5 mg EC tablet Take 1 Tablet by mouth at bedtime. Active latanoprost (XALATAN) 0.005 % ophthalmic solution 1 Drop at bedtime. Active metFORMIN (GLUCOPHAGE) 500 mg tablet Take 1 Tablet by mouth 2 times daily (with meals). Active gabapentin (NEURONTIN) 300 mg capsule Take 1 capsule (300 mg total) by mouth 2 (two) times a day. Active cholecalciferol (VITAMIN D-3) 50 mcg (2,000 unit) tablet Take 50 mcg by mouth 2 Times Daily. Active atorvastatin (LIPITOR) 40 mg tablet Take 1 Tablet by mouth daily. Active levETIRAcetam (KEPPRA) 750 mg tablet Take 500 mg by mouth 2 (two) times a day. Active cyanocobalamin (VITAMIN B-12) 1,000 mcg tablet Take 1 Tablet by mouth daily. Active alendronate (FOSAMAX) 70 mg tablet Take 1 Tablet by mouth every 7 days for 168 days. - Oral Active Active Problems Problem Noted Date Diagnosed Date Hyperparathyroidism 01/02/2024 Age-related osteoporosis wit hout current pathological fracture 06/27/2023 Encounters Date Type Department Care Team Description 07/02/2024 11:00 AM EST Office Visit Endocrinology - [place] [address] [place] [phone] Marta Milian PA Age-related osteoporosis without current pathological fracture (Primary Dx); Hyperparathyroidism (CMS/HCC); Swelling of lower extremity from Last 3 Months Social History Tobacco Use Types Packs/Day Years Used Date Smoking Tobacco: Former Cigarettes Q uit: 08/21/2011 Smokeless Tobacco: Never Comments Unknown Sex and Gender Information Value Date Recorded Sex Assigned at Not on file Legal Sex Female 3:49 AM EST Gender Identity Not on file Sexual Orientation Not on file Obstetrics History Last Filed Vital Signs Vital Sign Reading Time Taken Comments Blood Pressure 121/62 07/02/2024 11:40 AM EST Pulse 62 07/02/2024 11:40 AM EST Temperature 36.6 ??C (97.9 ??F) 07/02/2024 11:[address] Respiratory Rate - - Oxygen Saturation - - Inhaled Oxygen Concentration - - Weight 39.2 kg (86 lb 6.4 oz) 07/02/2024 11:40 A M EST Height 132.1 cm (4' 4 ) 07/02/2024 11:40 AM EST Body Mass Index 22.47 07/02/2024 11:40 AM EST Plan of Treatment Upcoming Encounters Date Type Department Care Team (Late st Contact Info) Description 12/30/2024 11:00 AM EDT Office Visit Endocrinology - [place] [address] [place] [address] Marta Milian PA [address] [place] [address] Health Maintenance Due Date Last Done Comments Zoster Vaccines (1 of 2) 1991 Pneumococcal Vaccine: 50+ Years (1 of 1 - PCV) 2006 Depression Screening 07/24/2022 Falls Risk Assessment 07/24/2022 Medicare Annual Wellness Visit 07/24/2022 Osteoporosis Screening (Bone Density Screening) 07/24/2022 Social Influencers of Health Screening 07/24/2022 DTaP,Tdap,and Td Vaccines (2 - Td or Tdap) 03/11/2031 03/11/2021 COVID-19 Vaccine Completed 06/27/2024, 07/09/2021, 01/01/2021 Influenza Vaccine Completed 06/27/2024, 06/03/2022 RSV Immunization Patients 60 + Years Old Completed 06/27/2024 HIB Vaccines Aged Out No longer eligi ble based on patient's age to complete this topic HPV Vaccines Aged Out No longer eligi ble based on patient's age to complete this topic Hepatitis A Vaccines Aged Out No long er eligible based on patient's age to complete this topic Hepatitis B Vaccines Aged Out No long er eligible based on patient's age to complete this topic IPV Vaccines Aged Out No longer eligi ble based on patient's age to complete this topic MMR Vaccines Aged Out No longer eligi ble based on patient's age to complete this topic Meningococcal ACWY Vaccine Aged Out N o longer eligible based on patient's age to complete this topic RSV Immunization Patients Under 20 months Aged Out No longer eligible b ased on patient's age to complete this topic Varicella Vaccines Aged Out No longer eligible based on patient's age to complete this topic Insurance MEDICARE Care Teams Engineering Aid Relationship Specialty Start Date End Date Cuate Oscar MD [address] [place] [address] [address] [place] PCP - General Internal Medicine 11/11/21
[2024-10-02] MEDS: Acetaminophen 325 MG TABLET 650 MG PO (22:00)
[2024-10-02 22:01] LABS: Alanine Aminotransferase 22 U/L (0-31); Albumin Level 3.7 g/dL (3.5-5.0); Alkaline Phosphatase 56 U/L (39-117); Anion Gap 12 (12-20); Aspartate Amino Transferase 29 U/L (5-31); Bilirubin Direct 0.3 mg/dL (0.0-0.5); Bilirubin Total 0.9 mg/dL (0.0-1.0); Blood Urea Nitrogen 9 mg/dL (9-16); Calcium 8.4 mg/dL (8.4-10.2); Carbon Dioxide 23 mmol/L (22-29); Chloride 103 mmol/L (96-108); Estimated Glomerular Filt Rate > 60; Glucose Random 202 mg/dL (60-115); Potassium 4.2 mmol/L (3.3-5.1); Sodium 134 mmol/L (135-145); Total Protein 6.9 g/dL (6.5-8.0)
--- NOTE | 2024-10-02 22:03 | PC.NURSE ---
medicated for fever, notified Dr. Gama.
[2024-10-02 22:26] LABS: Influenza A PCR NEGATIVE (Negative); Influenza B PCR NEGATIVE (Negative); Resp Syncy Virus RNA Qual PCR POSITIVE (Negative); SARS COV2 PCR INHOUSE NEGATIVE (Negative)
--- NOTE | 2024-10-02 22:38 | ED_ITS ---
HPI - General Adult General Chief complaint: General Medical Stated complaint: seizure Time Seen by Provider: 10/02/24 22:37 History of Present Illness ED Provider: Brittany TEIXEIRA narrative: The patient is an 84-year-old female who says that she has not felt well for about 3-4 days. She says she has been dizzy. Family reports that she seemed to have the flu. The family believes that she has had a fever. They also said that she has had a cough, nausea, and diarrhea. The patient says that she has had some urinary discomfort. Related Data Home Medications ?Medication ?Instructions ?Recorded ?Confirmed latanoprost 0.005 % eye drops 1 drp ophthalmic (eye) BEDTIME 12/30/21 07/31/24 alendronate 70 mg tablet 70 mg PO MO 09/15/23 07/31/24 acetaminophen 325 mg tablet 650 mg PO Q6H PRN pain or fever 05/06/24 07/31/24 omeprazole 20 mg capsule,delayed 20 mg PO BEDTIME 05/06/24 07/31/24 release donepezil 5 mg tablet 5 mg PO BEDTIME 06/06/24 07/31/24 levetiracetam 500 mg tablet 500 mg PO BID 06/06/24 07/31/24 gabapentin 300 mg capsule 300 mg PO BID 07/03/24 07/31/24 Previous Rx's ?Medication ?Instructions ?Recorded bisacodyl 5 mg tablet,delayed 10 mg (2 x 5 mg) PO BEDTIME PRN 07/06/23 release (Dulcolax (bisacodyl)) constipation 30 days #10 tabs sennosides 8.6 mg tablet (senna) 17.2 mg (2 x 8.6 mg) PO BID PRN 11/06/23 Constipation 90 days #360 tabs cyanocobalamin (vitamin B-12) 1,000 mcg PO DAILY #90 caps 02/23/24 1,000 mcg capsule metformin 500 mg tablet 500 mg PO BID 90 days #180 tabs 02/23/24 hydrocortisone 2.5 % topical cream [address] Q8-12H #30 grams 05/08/24 with perineal applicator nut.tx.gluc.intol,lac-free,soy See Rx Instructions .Route 05/24/24 (Glucerna Therapeutic Nutrition .COMPLEX 30 days #90 multiple units oral liquid) atorvastatin 40 mg tablet 40 mg PO BEDTIME 90 days #90 tabs 07/03/24 COMPRESSION STOCKINGS - knee-high #2 ea 07/05/24 (medium compression) ferrous sulfate 325 mg (65 mg 325 mg PO DAILY 90 days #90 tabs 08/06/24 iron) tablet docusate sodium 100 mg capsule 100 mg PO BID PRN for constipation 08/08/24 #90 caps meclizine 12.5 mg tablet 12.5 mg PO TID PRN dizziness #90 08/19/24 tabs cholecalciferol (vitamin D3) 50 50 mcg PO BID #60 tabs 09/13/24 mcg (2,000 unit) tablet (Vitamin D3) Allergies Allergy/AdvReac Type Severity Reaction Status Date / Time Penicillins Allergy Intermediate RASH Verified 10/02/24 21:33 Review of Systems 2 Review of Systems: Yes all other systems are reviewed and are negative PMFSH Past Medical History Medical History Chest pressure Osteoporosis (~2007) Tubular adenoma of colon (~2019) Post-menopausal Left arm swelling Swelling of lymph node Cardiac pacemaker in situ (~2018) Sick sinus syndrome Overweight (BMI 25.0-29.9) Insomnia Degenerative joint disease Nocturnal leg cramps Dementia without behavioral disturbance GERD (gastroesophageal reflux disease) Constipation Vitamin D deficiency Neuropathy Vitamin B12 deficiency Epilepsy (~1998) Anemia Sinus bradycardia Pure hypercholesterolemia Diabetes mellitus Surgical History History of endoscopy History of ankle surgery (~2011) History of partial gastrectomy History of colonoscopy History of pacemaker (~2018) History of hysterectomy Family History Family History Father Medical history unknown Mother No problems noted. Daughter No problems noted. Son No problems noted. Other Substance use disorder Social History Social History Household Members: None Housing: House Are you a primary patient care assistant to a significant other at home: No Do you presently have visiting nurse or other home services: No Alcohol intake: never Patient Tobacco Use Status: Former Tobacco user Tobacco use type: Cigarette Smoked in Last 30 Days: No e-Cigarette/Vaping Use: Never Used Second Hand Smoke Exposure: No Use of substances other than those prescribed or required for medical reasons: No Advance Directives: No Advance Directives Information Provided: Yes Advance Directives Date on File: 05/06/24 Do you have a plan to hurt others: No Plan service: No Current occupational status: retired 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 Current occupational exposures/hazards: No Cognitive needs: No Hearing needs: No Vision needs: Yes Physical Exam ED Vital Signs: Vital Signs - 24 hr 10/02/24 21:28 10/02/24 22:50 10/02/24 23:45 Temperature 103.2 F H 101.4 F H 99.2 F Pulse Rate 80 Respiratory Rate 16 Blood Pressure 152/58 H Pulse Oximetry 96 Oxygen Delivery Method Room Air 10/03/24 00:18 10/03/24 01:50 Temperature 98.9 F 99.3 F Pulse Rate 60 74 Respiratory Rate 16 16 Blood Pressure 120/46 L 124/43 L Pulse Oximetry 95 98 Oxygen Delivery Method Room Air Room Air BMI result Body Mass Index 16.6 Const Other: The patient is a frail 84-year-old woman who was awake and alert. She does not seem in overt distress although she seemed weak and frail. HENMT Other: Face is symmetrical. Mucous membranes moist. Eyes Other: Pupils are round equal, conjunctivae are clear, extraocular movements intact. Neck Neck: Yes full ROM, Yes no lymphadenopathy and Yes no JVD Resp Other: No increased work of breathing. First the patient seemed to have diffuse coarse air entry but with additional deep breaths the patient's air entry seemed significantly more clear bilaterally. Cardio Rate: regular rate Rhythm: regular rhythm Heart sounds: S1 normal heart sound present and S2 normal heart sound present GI Other: The abdomen is soft and does not seem tender. Skin Other: Skin is dry and unremarkable Neuro Other: The patient was awake and alert. She seems somewhat poorly oriented in a manner consistent with dementia. Eye movements are intact. The face seems symmetrical. Speech seems clear. I think her cranial nerves are intact. She moves her extremities symmetrically and appropriately. She seems diffusely weak but does not seem to have any focal findings. Extrem Other: No calf swelling or tenderness. No peripheral edema. Medications Administered Discontinued Medications Generic Name Dose Route Start Last Admin Trade Name Freq PRN Reason Stop Dose Admin Acetaminophen 650 mg 10/02/24 21:54 10/02/24 22:00 Acetaminophen 325 Mg Tablet PO 10/02/24 21:55 650 mg ONCE ONE Administration Sodium Chloride 500 mls @ 999 mls/hr 10/02/24 23:30 10/03/24 00:48 Ns IV 10/03/24 00:00 Infused .Q31M NATALIA Infusion Levetiracetam 500 mg 10/03/24 00:47 10/03/24 01:00 Levetiracetam 500 Mg Tablet PO 10/03/24 00:48 500 mg ONCE ONE Administration Medical Decision Making Medical Decision Making [facility] Narrative: The patient is an 84-year-old woman who presents with fever and cough. She has a history of dementia. She is also on levetiracetam for a possible seizure disorder. It is possible she might have had a brief episode of seizure-like activity earlier tonight at home. Year the patient's mental status seems clear although consistent with dementia. She is not exhibiting any increased work of breathing although she has some coarse air entry on her exam that improved with ongoing deep breaths. Her temperature was 103.2 degrees. Her viral swab is positive for RSV. Other testing shows a white count of 9.9 with 82% neutrophils. C-reactive protein minimally elevated at 0.72. Procalcitonin normal at 0.06. Urinalysis shows no signs of infection. Chest x-ray was read as ?nonspecific bilateral patchy airspace opacities could represent edema or atypical infectious process such as a viral pneumonitis. I do not think the patient is having congestive heart failure today. Her BNP today is 160 which is better than recent levels of BNP. I think a viral pneumonitis is much more likely in this case. Patient was given acetaminophen for her fever. She was given her evening dose of levetiracetam. Her son was hoping to take her home but when we try to see if she was strong enough to go home she release seemed quite weak and seemed to be a 2 person assist tushar. Did not seem appropriate or safe to send her home with her son tushar. We will keep her in the emergency room for case management and physical therapy evaluation in the morning. I do not think the patient has an acute bacterial infection or sepsis. I think the patient's fever is secondary to a viral syndrome, RSV. Lab Data 10/02/24 21:42 02/12/25 21:42 Labs: Lab Results 10/02/24 10/02/24 Range/Units 21:42 23:57 WBC 9.9 (4.8-10.8) X10*3/uL RBC 3.32 L (4.20-5.50) X10*6/uL Hgb 10.1 L (12.0-16.0) g/dl Hct 31.3 L (37.0-47.0) % MCV 94.3 (80.0-98.0) fL MCH 30.4 (27.0-33.0) pg MCHC 32.3 (31.0-35.0) g/dl RDW 13.4 (11.0-16.0) % Plt Count 171 (160-400) X10*3/uL MPV 11.1 (9.4-12.3) fL Immature Gran % (Auto) 0.3 (0.0-0.4) % Neut % (Auto) 82.6 H (45-73) % Lymph % (Auto) 7.4 L (20-40) % Adams % (Auto) 9.2 (2-11) % Eos % (Auto) 0.1 (0-4) % Baso % (Auto) 0.4 (0-2) % Lymph # (Auto) 0.7 L (1.2-4.9) X10*3/uL Adams # (Auto) 0.9 (0.1-1.2) X10*3/uL Eos # (Auto) 0.0 (0.0-0.4) X10*3/uL Baso # (Auto) 0.0 (0.0-0.2) X10*3/uL Abs Immat Gran (auto) 0.03 (0.00-0.03) X10*3/uL Absolute Neuts (auto) 8.2 (2.0-8.3) x10*3/uL Absolute Nucleated RBC 0.000 (0.0-0.012) X10*3/uL Nucleated RBC % (auto) 0.0 (0.0-0.2) /100WBC Sodium 134 L (135-145) mmol/L Potassium 4.2 (3.3-5.1) mmol/L Chloride 103 (96-108) mmol/L Carbon Dioxide 23 (22-29) mmol/L Anion Gap 12 (12-20) BUN 9 (9-16) mg/dL Creatinine 0.76 (0.5-1.4) mg/dL Estim Creat Clear Calc 16.0 Estimated GFR > 60 Random Glucose 202 H (60-115) mg/dL Calcium 8.4 D (8.4-10.2) mg/dL Total Bilirubin 0.9 (0.0-1.0) mg/dL Direct Bilirubin 0.3 (0.0-0.5) mg/dL AST 29 (5-31) U/L ALT 22 (0-31) U/L Alkaline Phosphatase 56 (39-117) U/L C-Reactive Protein 0.72 H (< or = 0.50) mg/dL B-Natriuretic Peptide 160 H (<100) pg/mL Total Protein 6.9 (6.5-8.0) g/dL Albumin 3.7 (3.5-5.0) g/dL Procalcitonin 0.06 ng/mL Urine Color Yellow Urine Appearance Clear Urine pH 7.5 (5.0-9.0) Ur Specific [place] 1.015 (1.005-1.025) Urine Protein 30 (1+) H (Neg-Trace) mg/dL Urine Glucose (UA) Negative (Negative) mg/dL Urine Ketones Negative (Negative) mg/dL Urine Blood Negative (Negative) Urine Nitrite Negative (Negative) Ur Leukocyte Esterase Negative (Negative) Urine RBC 0-2 (0-2) /HPF Urine WBC 0-5 (0-5) /HPF Ur Squamous Epith Cells 0-2 (0-2) /HPF Urine Bacteria None Seen (None Seen) Hyaline Casts 0-2 (0-2) /LPF Influenza Type A (PCR) NEGATIVE (Negative) Influenza Type B (PCR) NEGATIVE (Negative) RSV RNA Qual (PCR) POSITIVE A (Negative) SARS-CoV-2 RNA (RT-PCR) NEGATIVE (Negative) Discharge Plan Discharge Clinical Impression: Respiratory syncytial virus (RSV) infection Patient Disposition: Home, Self-Care Additional Instructions: She has tested positive for a viral infection called RSV. I believe this is the reason she has had fevers and seems weak. I do not think she is showing signs of any other kind of infection. RSV as a virus for which there is no specific treatment. Antibiotics would not be expected to help with RSV. She may have Tylenol every 6 hours as needed for any fevers. Encourage fluids. If she seems short of breath or simply seems a lot worse please return to the emergency room for re-evaluation. Prescriptions: No Action sennosides [senna] 8.6 mg tablet 17.2 mg PO BID PRN (Reason: Constipation) 90 Days Qty: 360 1RF hydrocortisone 2.5 % cream with perineal applicator [address] Q8-12H Qty: 30 2RF Glucerna Therapeutic Nutrition Liquid See Rx Instructions .ROUTE .COMPLEX 30 Days Qty: 90 5RF Rx Instructions: 1 can orally 3 times a day with meals; atorvastatin 40 mg tablet 40 mg PO BEDTIME 90 Days Qty: 90 1RF ferrous sulfate 325 mg (65 mg iron) tablet 325 mg PO DAILY 90 Days Qty: 90 1RF docusate sodium 100 mg capsule 100 mg PO BID PRN (Reason: for constipation) Qty: 90 1RF meclizine 12.5 mg tablet 12.5 mg PO TID PRN (Reason: dizziness) Qty: 90 0RF cholecalciferol (vitamin D3) [Vitamin D3] 50 mcg (2,000 unit) tablet 50 mcg PO BID Qty: 60 1RF omeprazole 20 mg capsule,delayed release(DR/EC) 20 mg PO BEDTIME acetaminophen 325 mg Tablet 650 mg PO Q6H PRN (Reason: pain or fever) alendronate 70 mg tablet 70 mg PO MO metformin 500 mg tablet 500 mg PO BID 90 Days Qty: 180 3RF cyanocobalamin (vitamin B-12) 1,000 mcg capsule 1,000 mcg PO DAILY Qty: 90 1RF latanoprost 0.005 % drops 1 drp ophthalmic (eye) BEDTIME bisacodyl [Dulcolax (bisacodyl)] 5 mg tablet,delayed release (DR/EC) 10 mg PO BEDTIME PRN (Reason: constipation) 30 Days Qty: 10 1RF Rx Instructions: to use if no bowel movement for 2-3 days gabapentin 300 mg capsule 300 mg PO BID donepezil 5 mg tablet 5 mg PO BEDTIME levetiracetam 500 mg tablet 500 mg PO BID (DME) COMPRESSION STOCKINGS - knee-high (medium compression) small See Rx Instructions .Route .[facility] Qty: 2 0RF Rx Instructions: As directed Print Language: Surinamese
[2024-10-02 22:50] VITALS: TEMP 38.6
--- NOTE | 2024-10-02 22:51 | PC.NURSE ---
Pure wick in placed, pt position for comfort.
[2024-10-02 23:34] LABS: C Reactive Protein 0.72 mg/dL (< or = 0.50)
[2024-10-02 23:45] VITALS: TEMP 37.3
[2024-10-02 23:47] LABS: B Type Natriuretic Peptide 160 pg/mL (<100)
[2024-10-02] MEDS: 0.9 % Sodium Chloride 500 ML 999 ML IV (23:56)
--- NOTE | 2024-10-03 | PC.NURSE ---
Iv place to right hand, fluid hung, striaght cath completed, pt difficult stick for lactic and blood culture, provider aware.
[2024-10-03 00:10] LABS: Appearance Urine Clear; Color Urine Yellow; Glucose Urine UA Negative (Negative); Leukocyte Esterase Urine Negative (Negative); Nitrite Urine Negative (Negative); PH 7.5 (5.0-9.0); Specific Gravity - Urine 1.015 (1.005-1.025); UMIC TRIGGER UACC YES; Urine Blood Negative (Negative); Urine Ketones Negative (Negative); Urine Protein 30 (1+) mg/dL (Neg-Trace)
[2024-10-03 00:18] VITALS: BP 120/46; PULSE 60; RESP 16; TEMP 37.2; O2SAT 95
[2024-10-03 00:30] LABS: Bacteria Urine None Seen (None Seen); Hyaline Casts Urine 0-2 /LPF (0-2); RBC Urine 0-2 /HPF (0-2); Squamous Epithelial Cell Urine 0-2 /HPF (0-2); WBC Urine 0-5 /HPF (0-5)
--- NOTE | 2024-10-03 00:58 | PC.NURSE ---
per provider no blood culture or lactic needs to be drawn.
[2024-10-03] MEDS: levETIRAcetam 500 MG TABLET PO ×2 (01:00→10:25)
--- NOTE | 2024-10-03 01:49 | PC.NURSE ---
pt was being discharged home, when attempting for discharge, son changed his mind and like her to stay for case management, pt positioned back in bed, plan is for Pt and case management.
[2024-10-03 01:50] VITALS: BP 124/43; PULSE 74; RESP 16; TEMP 37.4; O2SAT 98
[2024-10-03 03:02] LABS: Procalcitonin 0.06 ng/mL
[2024-10-03 06:24] VITALS: BP 127/58; PULSE 69; RESP 16; TEMP 36.9; O2SAT 99
[2024-10-03 07:51] VITALS: BP 123/49; PULSE 62; RESP 14; TEMP 36.7; O2SAT 99
--- NOTE | 2024-10-03 10:52 | MHC.CM.ED ---
Received case management consult from Dr Soto overnight. Patient came to the ER due to possible seizure. Work up indicated RSV. Physical therapy eval completed. Short term rehab is recommended. Met with patient and son, Magdy, in regards to discharge planning. Patient lives with her 2 other sons, ambulates independently and had no services prior to coming to the hospital. PCP verified. Copy of HCP verified to be on file. Patient does not have [facility] because she does not qualify. Patient gifted house to Magdy. Magdy and patient file taxes jointly. So patient had too many assets to qualify. Due to bieng positive for RSV, will be difficult to find placement. Patient will also have to privately pay. Per Magdy, patient does not have the funds to privately pay. Magdy agreeable to referral to [facility] for SN. Referral to [facility] also made at Magdy's approval to see if there are any services patient would benefit from. Magdy will transport patient home. Carrie ANDERSON and Johanna FROST aware. Continue to monitor for d/c needs.
--- NOTE | 2024-10-03 11:58 | PC.NURSE ---
Pt resting quietly in room; family at bedside; vss; + congested cough with coarse but clear lung sounds; pt/family aware of tentative plan to DC home with [facility] services
[2024-10-03 12:25] VITALS: O2SAT 98
[2024-10-03 13:41] VITALS: BP 109/55; PULSE 61; RESP 15; TEMP 36.5; O2SAT 98
== END 2024-10-03 13:43 | disposition home or self-care (01) ==
PROVIDERS: Emergency Provider Emergency Medicine; PCP Internal Medicine
DX: J22 Unspecified acute lower respiratory infection (principal); R56.9 Unspecified convulsions; B97.4 Respiratory syncytial virus as the cause of diseases classified elsewhere; R26.81 Unsteadiness on feet; D64.9 Anemia, unspecified; R06.02 Shortness of breath; I97.89 Other postprocedural complications and disorders of the circulatory system, not elsewhere classified; I49.5 Sick sinus syndrome; R50.9 Fever, unspecified; R05.9 Cough, unspecified; R11.0 Nausea; R30.0 Dysuria; Z03.818 Encounter for observation for suspected exposure to other biological agents ruled out; Z79.899 Other long term (current) drug therapy; Z87.891 Personal history of nicotine dependence
CPT/HCPCS: 0241U; 71045; 80053; 81001; 82248; 83880; 84145; 85025; 86140; 96360; 97162; 99285

== ENCOUNTER → 2024-10-02 21:30 | Outpatient (BNV) | payer MEDICARE, SELFPAY | PROVIDERS: Emergency Provider Emergency Medicine; PCP Internal Medicine; Visit Provider Radiology Diagnostic Radiology | DX: R91.8 Other nonspecific abnormal finding of lung field (principal) | CPT/HCPCS: 71045 ==

== ENCOUNTER 2024-10-10 12:46 | Emergency (ER) | payer MEDICARE, SELFPAY ==
--- NOTE | ~2024-10-10 | CT_ITS ---
EXAMINATION: CT ABDOMEN AND PELVIS WITHOUT CONTRAST CLINICAL INFORMATION: Lower abdominal pain. Constipation. COMPARISON: CT dated June 11, 2018. TECHNIQUE: Multidetector volumetric imaging was performed from the superior aspect of the liver through the pubic symphysis. Sagittal and coronal reformatted images were obtained on the technologist's workstation. This CT examination was performed using dose optimization techniques as appropriate, variously including the following: *Automated exposure control *Adjustment of mA and/or kV according to patient size (this includes techniques or standardized protocols for targeted exams where dose is matched to indication/reason for exam; i.e. extremities or head) *Use of iterative reconstruction technique DLP: 235 mGy centimeters. FINDINGS: Limited examination of the intra-abdominal organs and vascular structures due to lack of IV contrast. LUNG BASES: Centrilobular emphysematous changes with the minimal peripheral honeycombing. Elevated leads in the right heart chambers from a pacemaker. Postsurgical changes at the gastroesophageal junction. LIVER, GALLBLADDER, AND BILIARY TREE: Liver measures 15 cm with a nodular surface. No pericholecystic fluid collection or gallbladder wall thickening. No intrahepatic or extrahepatic biliary ductal dilatation. PANCREAS: No peripancreatic fluid collection. No main pancreatic ductal dilatation. SPLEEN: 6 cm. ADRENAL GLANDS: No nodular lesions. KIDNEYS AND URETERS: Nonobstructing less than 3 mm renal calculi, both pelvicalyceal system. Extrarenal pelvis bilaterally. No hydronephrosis. BLADDER: Fluid-filled. GASTROINTESTINAL TRACT: Abundant stool within the large intestine. Questionable small intestine fecal sign. No pneumatosis intestinalis. No pneumoperitoneum. No ascites. No intestinal obstruction pattern. No gross wall thickening. I see a tubular structure that may correspond to the appendix. ABDOMINAL WALL: No gross umbilical hernia. LYMPH NODES: No gross lymphadenopathy, retroperitoneum. VASCULAR: Throughout the abdominal aorta wall and iliac arteries without gross aneurysm. Calcifications in the distal splenic artery with the questionable small splenic aneurysm, thrombosis. PELVIC VISCERA: Inadequate evaluation. OSSEOUS STRUCTURES: Osteopenia versus osteoporosis. S-shaped curvature of the thoracolumbar spine. Multilevel thoracolumbar spondylosis. No acute fracture or gross listhesis. CT/CT abdomen pelvis wo IV con IMPRESSION: Bilateral nonobstructing nephrolithiasis. No intestinal obstruction pattern. Fleischner guidelines were followed. Electronically signed by: Lester Jarrell MD 10/10/2024 03:31 PM EST RP
--- NOTE | ~2024-10-10 | XR_ITS ---
CLINICAL HISTORY: L hip pain 3 view, pelvis and left hip Comparison: None Findings: No acute fracture or dislocation. No significant arthritic change. The soft tissues are unremarkable. IMPRESSION: No acute findings. This document has been electronically signed by: Cassy Chavez MD on 10/10/2024 17:09:46
--- NOTE | 2024-10-10 12:54 | MHC.CM.ED ---
Patient currently in ER. Received notification from [facility] FITZGERALD that patient is active with their agency and coming to ER due to urinary symptoms. Return referral made to [facility] in [facility]. Isaiah Drake RN made aware.
[2024-10-10 14:35] VITALS: BP 116/78; BP 96/44; PULSE 63; PULSE 82; RESP 16; O2SAT 96; O2SAT 98; BMI 14.0
[2024-10-10 14:40] VITALS: BP 96/44; PULSE 63; RESP 16; O2SAT 98
--- NOTE | 2024-10-10 14:55 | ED_ITS ---
HPI - Female Genitourinary General Chief complaint: Urogenital-Female Stated complaint: CONSTIPATION, ? URINE RETENTION, WEAKNESS Time Seen by Provider: 10/10/24 14:41 Source: patient, EMS, RN notes reviewed and old records reviewed Mode of arrival: EMS History of Present Illness ED Provider: Margret Carvalho PA-C HPI Narrative: 84-year-old female with a past medical history of osteoporosis, GERD, dementia, constipation, vitamin B12 deficiency, anemia, diabetes, HLD, presenting to the ED via EMS from home complaining of lower abdominal pain, urinary retention x3 months & LLE pain/decreased mobility secondary to pain. Patient reports she is having normal BMs. Denies known injury/trauma or fall. Patient is poor historian with baseline dementia. Denies nausea, vomiting, dysuria/hematuria. Patient was recently seen and treated in our ED on 10/02/2024 for RSV, had PT/case management consult secondary to weakness who recommended STR, however due to out of pocket charge patient went home with VNA. Related Data Home Medications ?Medication ?Instructions ?Recorded ?Confirmed latanoprost 0.005 % eye drops 1 drp ophthalmic (eye) BEDTIME 12/30/21 07/31/24 alendronate 70 mg tablet 70 mg PO MO 09/15/23 07/31/24 acetaminophen 325 mg tablet 650 mg PO Q6H PRN pain or fever 05/06/24 07/31/24 omeprazole 20 mg capsule,delayed 20 mg PO BEDTIME 05/06/24 07/31/24 release donepezil 5 mg tablet 5 mg PO BEDTIME 06/06/24 07/31/24 levetiracetam 500 mg tablet 500 mg PO BID 06/06/24 07/31/24 gabapentin 300 mg capsule 300 mg PO BID 07/03/24 07/31/24 Previous Rx's ?Medication ?Instructions ?Recorded bisacodyl 5 mg tablet,delayed 10 mg (2 x 5 mg) PO BEDTIME PRN 07/06/23 release (Dulcolax (bisacodyl)) constipation 30 days #10 tabs sennosides 8.6 mg tablet (senna) 17.2 mg (2 x 8.6 mg) PO BID PRN 11/06/23 Constipation 90 days #360 tabs cyanocobalamin (vitamin B-12) 1,000 mcg PO DAILY #90 caps 07/05/24 1,000 mcg capsule metformin 500 mg tablet 500 mg PO BID 90 days #180 tabs 02/23/24 hydrocortisone 2.5 % topical cream 1 appl TX Q8-12H #30 grams 05/08/24 with perineal applicator nut.tx.gluc.intol,lac-free,soy See Rx Instructions .Route 05/24/24 (Glucerna Therapeutic Nutrition .COMPLEX 30 days #90 multiple units oral liquid) atorvastatin 40 mg tablet 40 mg PO BEDTIME 90 days #90 tabs 07/03/24 COMPRESSION STOCKINGS - knee-high #2 ea 07/05/24 (medium compression) ferrous sulfate 325 mg (65 mg 325 mg PO DAILY 90 days #90 tabs 08/06/24 iron) tablet docusate sodium 100 mg capsule 100 mg PO BID PRN for constipation 08/08/24 #90 caps meclizine 12.5 mg tablet 12.5 mg PO TID PRN dizziness #90 08/19/24 tabs cholecalciferol (vitamin D3) 50 50 mcg PO BID #60 tabs 09/13/24 mcg (2,000 unit) tablet (Vitamin D3) benzonatate 100 mg capsule 100 mg PO TID PRN cough #14 caps 10/03/24 Allergies Allergy/AdvReac Type Severity Reaction Status Date / Time Penicillins Allergy Intermediate RASH Verified 10/10/24 14:39 Review of Systems 2 Review of Systems: Yes all other systems are reviewed and are negative Constitutional: Constitutional: Reports as per [facility] Past Medical History Attestation statement: The following information was validated with the patient. Source: old records reviewed Medical History Chest pressure Osteoporosis (~2007) Tubular adenoma of colon (~2019) Post-menopausal Left arm swelling Swelling of lymph node Cardiac pacemaker in situ (~2018) Sick sinus syndrome Overweight (BMI 25.0-29.9) Insomnia Degenerative joint disease Nocturnal leg cramps Dementia without behavioral disturbance GERD (gastroesophageal reflux disease) Constipation Vitamin D deficiency Neuropathy Vitamin B12 deficiency Epilepsy (~1998) Anemia Sinus bradycardia Pure hypercholesterolemia Diabetes mellitus Surgical History History of endoscopy History of ankle surgery (~2011) History of partial gastrectomy History of colonoscopy History of pacemaker (~2019) History of hysterectomy Family History Family History Father Medical history unknown Mother No problems noted. Daughter No problems noted. Son No problems noted. Other Substance use disorder Social History Social History Household Members: None Housing: House Are you a primary personal care attendant to a significant other at home: No Do you presently have visiting nurse or other home services: No Alcohol intake: never Patient Tobacco Use Status: Former Tobacco user Tobacco use type: Cigarette Smoked in Last 30 Days: No e-Cigarette/Vaping Use: Never Used Second Hand Smoke Exposure: No Use of substances other than those prescribed or required for medical reasons: No Advance Directives: Yes Advance Directives on File: Yes Advance Directives Date on File: 10/03/24 Do you have a plan to hurt others: No Plan service: No Current occupational status: retired 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 [employer] Current occupational exposures/hazards: No Cognitive needs: No Hearing needs: No Vision needs: Yes Physical Exam 2 Vital Signs: Vital Signs: Last Vital Signs Pulse 63 10/10/24 14:40 Resp 16 10/10/24 14:40 BP 96/44 L 10/10/24 14:40 Pulse Ox 98 10/10/24 14:40 O2 Del Method Room Air 10/10/24 14:40 BMI result Body Mass Index 14.0 Const: General: cooperative and no acute distress O rientation/consciousness: oriented to person and oriented to place L imitations: no limitations HEENT: Head: Yes normal to inspection and Yes atraumatic Ears: hearing grossly normal bilaterally General nose exam: Normal external nose present Face and sinus: Yes normal facial exam Eyes: General: appearance normal, both eyes and all related structures EOM: EOMs intact bilaterally Neck: Neck: Yes normal visual inspection and Yes no meningeal signs Resp: Effort & Inspection: normal respiratory effort and no respiratory distress Auscultation: clear to auscultation bilaterally Cardio: Rate: regular rate Heart sounds: S1 normal heart sound present and S2 normal heart sound present GI: Inspection: Yes normal to inspection Palpation (GI): Soft to palpation, Tenderness to palpation present (GI) in the LLQ; with no rebound tenderness, no guarding and not rigid Back/Spine/Pelvis: Other: No midline cervical/thoracic/lumbar spinous tenderness/step-off or deformity Skin: Rashes: no rashes Wounds: no wounds Neuro: General: oriented to person, oriented to place, tone normal and no meningeal signs Cranial nerves: Yes CN's II-XII intact bilaterally Extrem: Other: pelvis stable. no appreciable LE deformity, no erythema/warmth. Compartments soft. Neurovascularly intact distally. General: Yes normal to inspection Course Course Course Narrative: 1550--CT abdomen pelvis wo IV con IMPRESSION: Bilateral nonobstructing nephrolithiasis. No intestinal obstruction pattern. Fleischner guidelines were followed. > patient not interested in PT/case management -no leukocytosis. H&H at patient's baseline -1630--ED care transferred to MARGOT Rodriguez pending remaining labs, UA, x-ray, ambulation trial, viral testing, dispo per results Medications Administered Discontinued Medications Generic Name Dose Route Start Last Admin Trade Name Freq PRN Reason Stop Dose Admin Acetaminophen 650 mg 10/10/24 14:57 10/10/24 15:52 Acetaminophen 325 Mg Tablet PO 10/10/24 14:58 650 mg ONCE ONE Administration Sodium Chloride 1,000 mls @ 999 mls/hr 10/10/24 15:00 10/10/24 16:18 Ns IV 10/10/24 16:00 999 mls/hr .Q1H1M NATALIA Administration Medical Decision Making Medical Decision Making [facility] Narrative: 84-year-old female with a past medical history of osteoporosis, GERD, dementia, constipation, vitamin B12 deficiency, anemia, diabetes, HLD, presenting to the ED via EMS from home complaining of lower abdominal pain, urinary retention x3 months & LLE pain/decreased mobility secondary to pain. On exam BP soft, A&O x2 however with baseline dementia, acting appropriate, abdomen soft with left lower/suprapubic tenderness. Pelvis stable. Distal extremity neurovascularly intact. Concern for constipation vs fecal impaction vs urinary retention vs UTI vs MSK back pain/strain vs arthritis vs failure to thrive. Low suspicion for severe sepsis. Rule out metabolic abnormalities . Low suspicion for cauda equina/cord compression or epidural abscess Plan: Labs, UA, viral testing, CT AP, bladder scan, x-ray, Tylenol, IVF, re- evaluate Please refer to course for remaining clinical decision making, interpretation of labs/imaging results, and discussions with consultants and/or family members. Differential Diagnosis Differential Diagnoses: The differential diagnosis associated with the presentation includes As above Admission/Observation Consideration of admission/observation: Escalation of care including admission/observation considered Lab Data MDM Lab Attestation statement: I reviewed the patient's lab results. 10/10/24 15:50 10/10/24 15:50 Labs: Lab Results 10/10/24 10/10/24 Range/Units 15:16 15:50 WBC 8.2 (4.8-10.8) X10*3/uL RBC 3.45 L (4.20-5.50) X10*6/uL Hgb 10.4 L (12.0-16.0) g/dl Hct 31.8 L (37.0-47.0) % MCV 92.2 (80.0-98.0) fL MCH 30.1 (27.0-33.0) pg MCHC 32.7 (31.0-35.0) g/dl RDW 13.3 (11.0-16.0) % Plt Count 262 D (160-400) X10*3/uL MPV 10.3 (9.4-12.3) fL Immature Gran % (Auto) 1.0 H (0.0-0.4) % Neut % (Auto) 61.7 (45-73) % Lymph % (Auto) 23.6 (20-40) % [place]ham % (Auto) 12.8 H (2-11) % Eos % (Auto) 0.5 (0-4) % Baso % (Auto) 0.4 (0-2) % Lymph # (Auto) 1.9 (1.2-4.9) X10*3/uL [place]ham # (Auto) 1.1 (0.1-1.2) X10*3/uL Eos # (Auto) 0.0 (0.0-0.4) X10*3/uL Baso # (Auto) 0.0 (0.0-0.2) X10*3/uL Abs Immat Gran (auto) 0.08 H (0.00-0.03) X10*3/uL Absolute Neuts (auto) 5.1 (2.0-8.3) x10*3/uL Absolute Nucleated RBC 0.000 (0.0-0.012) X10*3/uL Nucleated RBC % (auto) 0.0 (0.0-0.2) /100WBC Sodium 139 (135-145) mmol/L Potassium 4.0 (3.3-5.1) mmol/L Chloride 113 H (96-108) mmol/L Carbon Dioxide 19 L (22-29) mmol/L Anion Gap 11 L (12-20) BUN 18 H (9-16) mg/dL Creatinine 0.68 (0.5-1.4) mg/dL Estim Creat Clear Calc 32.1 Estimated GFR > 60 Random Glucose 89 (60-115) mg/dL Calcium 8.5 (8.4-10.2) mg/dL Magnesium 1.6 (1.6-2.6) mg/dL Total Bilirubin 0.4 (0.0-1.0) mg/dL Direct Bilirubin 0.3 (0.0-0.5) mg/dL AST 20 (5-31) U/L ALT 7 (0-31) U/L Alkaline Phosphatase 62 (39-117) U/L Total Protein 6.7 (6.5-8.0) g/dL Albumin 3.2 L (3.5-5.0) g/dL Lipase 17 (8-78) U/L Influenza Type A (PCR) NEGATIVE (Negative) Influenza Type B (PCR) NEGATIVE (Negative) RSV RNA Qual (PCR) NEGATIVE (Negative) SARS-CoV-2 RNA (RT-PCR) NEGATIVE (Negative) Independent Interpretation I performed an independent interpretation of an: CT Scan Radiology Impression Discussion of test interpretation with radiology: I have reviewed the radiologist's reading. Independent Historian Clinical information obtained from an independent historian. History obtained from or confirmed by: EMS External Record Review External record reviewed: Inpatient record, Office record, Outpatient record, Prior outpatient labs, Prior outpatient radiology, Primary care record and Outside ED record Tests considered The following testing was considered but not selected: As above Prescription Management I considered prescription management with: Pain Medication and Antibiotic Chronic Conditions Patient?s care impacted by: Diabetes and Other (dementia) Social Determinants Patient?s care significantly limited by Social Determinants of Health including: Other Social Determinant of Health Discharge Plan Discharge Clinical Impression: Urinary retention, Left leg pain Patient Disposition: Still a Patient Prescriptions: No Action sennosides [senna] 8.6 mg tablet 17.2 mg PO BID PRN (Reason: Constipation) 90 Days Qty: 360 1RF hydrocortisone 2.5 % cream with perineal applicator 1 appl TX Q8-12H Qty: 30 2RF Glucerna Therapeutic Nutrition Liquid See Rx Instructions .ROUTE .COMPLEX 30 Days Qty: 90 5RF Rx Instructions: 1 can orally 3 times a day with meals; atorvastatin 40 mg tablet 40 mg PO BEDTIME 90 Days Qty: 90 1RF ferrous sulfate 325 mg (65 mg iron) tablet 325 mg PO DAILY 90 Days Qty: 90 1RF docusate sodium 100 mg capsule 100 mg PO BID PRN (Reason: for constipation) Qty: 90 1RF meclizine 12.5 mg tablet 12.5 mg PO TID PRN (Reason: dizziness) Qty: 90 0RF cholecalciferol (vitamin D3) [Vitamin D3] 50 mcg (2,000 unit) tablet 50 mcg PO BID Qty: 60 1RF omeprazole 20 mg capsule,delayed release(DR/EC) 20 mg PO BEDTIME acetaminophen 325 mg Tablet 650 mg PO Q6H PRN (Reason: pain or fever) benzonatate 100 mg capsule 100 mg PO TID PRN (Reason: cough) Qty: 14 0RF alendronate 70 mg tablet 70 mg PO MO metformin 500 mg tablet 500 mg PO BID 90 Days Qty: 180 3RF cyanocobalamin (vitamin B-12) 1,000 mcg capsule 1,000 mcg PO DAILY Qty: 90 1RF latanoprost 0.005 % drops 1 drp ophthalmic (eye) BEDTIME bisacodyl [Dulcolax (bisacodyl)] 5 mg tablet,delayed release (DR/EC) 10 mg PO BEDTIME PRN (Reason: constipation) 30 Days Qty: 10 1RF Rx Instructions: to use if no bowel movement for 2-3 days gabapentin 300 mg capsule 300 mg PO BID donepezil 5 mg tablet 5 mg PO BEDTIME levetiracetam 500 mg tablet 500 mg PO BID (DME) COMPRESSION STOCKINGS - knee-high (medium compression) small See Rx Instructions .Route .MEDSUPPLY Qty: 2 0RF Rx Instructions: As directed Print Language: Angolan
[2024-10-10] MEDS: Acetaminophen 325 MG TABLET 650 MG PO (15:52)
[2024-10-10 15:55] LABS: MANUAL DIFF FLAG NO
[2024-10-10 15:59] LABS: Basophils Percent Auto 0.4 % (0-2); Eosinophils Percent Auto 0.5 % (0-4); Hematocrit 31.8 % (37.0-47.0); Hemoglobin 10.4 g/dl (12.0-16.0); Imm Gran Abs Auto 0.08 X10*3/uL (0.00-0.03); Lymphocytes Absolute Auto 1.9 X10*3/uL (1.2-4.9); Lymphocytes Percent Auto 23.6 % (20-40); Mean Corpuscular HGB Conc 32.7 g/dl (31.0-35.0); Mean Corpuscular Hemoglobin 30.1 pg (27.0-33.0); Mean Corpuscular Volume 92.2 fL (80.0-98.0); Mean Platelet Volume 10.3 fL (9.4-12.3); Monocytes Absolute Auto 1.1 X10*3/uL (0.1-1.2); Monocytes Percent Auto 12.8 % (2-11); Neutrophils Absolute Auto 5.1 x10*3/uL (2.0-8.3); Neutrophils Percent Auto 61.7 % (45-73); Platelet Count 262 X10*3/uL (160-400); Red Blood Count 3.45 X10*6/uL (4.20-5.50); Red Cell Distribution Width 13.3 % (11.0-16.0); White Blood Count 8.2 X10*3/uL (4.8-10.8)
--- OUTSIDE RECORDS SUMMARY | 2024-10-10 15:59 | XMS_ITS | Clinical Summary ---
Author Organization [facility] [address] [place] [address] [place] [phone] Phone Care Team Providers Care Wind Turbine Electrical Engineer Name Role Phone Cuate Oscar MD Primary Care Provider + [phone] Allergies Active Allergy Reactions Criticality Noted Date [...] osteoporosis wit hout current pathological fracture 06/27/2023 Social History Tobacco Use Types Packs/Day Years [...] 11:00 AM EDT Office Visit Endocrinology - [place] [address] [place] [address] Marta Milian PA [address] [place] [address] Health Maintenance Due Date Last Done Comments Pneumococcal Vaccine: 50+ Years (1 of 1 - PCV) 1991 Zoster Vaccines (1 of 2) 1991 Depression Screening 07/24/2022 Falls Risk Assessment 07/24/2022 [...] patient's age to complete this topic Meningococcal B Vacine Aged Out No lo nger eligible based on patient's age to complete this topic RSV Immunization Patients Under 20 months Aged Out No longer eligible b ased on patient's age to complete this topic Varicella Vaccines Aged Out No longer eligible based on patient's age to complete this topic Insurance MEDICARE Care Teams Wind Turbine Electrical Engineer Relationship Specialty Start Date End Date Cuate Oscar MD [address] [place] [address] [address] Grimaldo PCP - General Internal Medicine 11/11/21
--- OUTSIDE RECORDS SUMMARY | 2024-10-10 15:59 | XMS_ITS | Clinical Summary ---
Author Organization [facility] Address [address] [place] [address] Care Team Providers Care Lockstitch Waistline Joiner Name Role Phone Unavailable Primary Care Provider Unavailabl e Social History Tobacco Use Types Packs/Day Years Used Date Smoking Tobacco: Never Assessed Sex and Gender Information Value Date Recorded Sex Assigned at Not on file Gender Identity Not on file Sexual Orientation Not on file Plan of Treatment Health Maintenance Due Date Last Done Comments DTaP/Tdap/Td Vaccines (1 - Tdap) 1960 Pneumococcal Vaccines 50+ (1 of 1 - PCV) 1991 Zoster (Shingles) Vaccine (1 of 2) 1991 RSV Vaccine 60 years and old er and Patients (1 - 1-dose 75+ series) 2016 COVID-19 Vaccine (2023-2 5 season) 2024 Hepatitis B Vaccines Aged Out No long er eligible based on patient's age to complete this topic
[2024-10-10 16:08] LABS: Influenza A PCR NEGATIVE (Negative); Influenza B PCR NEGATIVE (Negative); Resp Syncy Virus RNA Qual PCR NEGATIVE (Negative); SARS COV2 PCR INHOUSE NEGATIVE (Negative)
[2024-10-10 16:09] LABS: Alanine Aminotransferase 7 U/L (0-31); Albumin Level 3.2 g/dL (3.5-5.0); Alkaline Phosphatase 62 U/L (39-117); Anion Gap 11 (12-20); Aspartate Amino Transferase 20 U/L (5-31); Bilirubin Direct 0.3 mg/dL (0.0-0.5); Bilirubin Total 0.4 mg/dL (0.0-1.0); Blood Urea Nitrogen 18 mg/dL (9-16); Calcium 8.5 mg/dL (8.4-10.2); Carbon Dioxide 19 mmol/L (22-29); Chloride 113 mmol/L (96-108); Creatinine Clr Calc Pharmacy 32.1; Estimated Glomerular Filt Rate > 60; Glucose Random 89 mg/dL (60-115); Lipase 17 U/L (8-78); Magnesium 1.6 mg/dL (1.6-2.6); Sodium 139 mmol/L (135-145); Total Protein 6.7 g/dL (6.5-8.0)
[2024-10-10] MEDS: 0.9 % Sodium Chloride 1,000 ML 999 ML IV (16:18)
[2024-10-10 18:46] VITALS: BP 117/47; PULSE 60; RESP 16; O2SAT 100
[2024-10-10 19:38] LABS: Appearance Urine Clear; Color Urine Yellow; Glucose Urine UA Negative (Negative); Leukocyte Esterase Urine Trace (Negative); Nitrite Urine Negative (Negative); Specific Gravity - Urine 1.015 (1.005-1.025); UMIC TRIGGER UACC YES; Urine Blood Negative (Negative); Urine Ketones Negative (Negative); Urine Protein Negative (Neg-Trace)
--- NOTE | 2024-10-10 19:40 | PC.NURSE ---
Addendum entered by Erwin Thornton 10/10/24 20:43: 239 on bladder scan. no kenyon per michael FROST Original Note: pt initially denied ability/urge to urinate with bladder scan >463mL urine. pt assisted to bedside commode and able to urinate 250ML urine. ua sample sent to lab. bladder scan battery low, awaiting charge to obtain post void bladder scan. Michael FROST aware.
[2024-10-10 20:10] VITALS: BP 109/55; PULSE 60; RESP 16; TEMP 36.4; O2SAT 100
[2024-10-10 20:11] LABS: Bacteria Urine None Seen (None Seen); Hyaline Casts Urine 0-2 /LPF (0-2); Other Crystals Urine Present; RBC Urine 0-2 /HPF (0-2); Squamous Epithelial Cell Urine 0-2 /HPF (0-2); WBC Urine 0-5 /HPF (0-5)
[2024-10-10 21:15] VITALS: BP 109/55; PULSE 60; RESP 16; TEMP 36.4; O2SAT 100
== END 2024-10-10 21:15 | disposition home or self-care (01) ==
PROVIDERS: Physician Assistant; Emergency Provider Emergency Medicine; PCP Internal Medicine
DX: K59.00 Constipation, unspecified (principal); R33.9 Retention of urine, unspecified; R11.0 Nausea; M25.552 Pain in left hip; M79.605 Pain in left leg; R10.2 Pelvic and perineal pain; Z87.891 Personal history of nicotine dependence; Z03.818 Encounter for observation for suspected exposure to other biological agents ruled out; Z79.899 Other long term (current) drug therapy
CPT/HCPCS: 0241U; 51701; 51798; 73502; 74176; 80048; 80076; 81001; 83690; 83735; 85025; 96360; 96361; 99284; 99285

== ENCOUNTER → 2024-10-10 14:56 | Outpatient (BNV) | payer MEDICARE, SELFPAY | PROVIDERS: Emergency Provider Emergency Medicine; PCP Internal Medicine; Visit Provider Radiology Diagnostic Radiology | DX: N20.0 Calculus of kidney (principal); M25.552 Pain in left hip | CPT/HCPCS: 74176 ==

== ENCOUNTER 2024-10-23 11:12 | Outpatient (REF) | payer MEDICARE, SELFPAY ==
[2024-10-23 11:25] LABS: Appearance Urine Clear; Color Urine Yellow; Glucose Urine UA Negative (Negative); Leukocyte Esterase Urine Moderate (2+) (Negative); Nitrite Urine Negative (Negative); PH 5.5 (5.0-9.0); Specific Gravity - Urine 1.015 (1.005-1.025); UMIC TRIGGER UA YES; Urine Blood Negative (Negative); Urine Ketones Negative (Negative); Urine Protein Trace mg/dL (Neg-Trace)
[2024-10-23 11:39] LABS: Bacteria Urine Trace (None Seen); Other Crystals Urine Present; RBC Urine 0-2 /HPF (0-2); WBC Urine 0-5 /HPF (0-5)
--- OUTSIDE RECORDS SUMMARY | 2024-10-23 13:30 | XMS_ITS | Clinical Summary ---
Author Organization [facility] Address [address] [place] [address] Care Team Providers Care Valve Seater Operator Name Role Phone Unavailable Primary Care Provider [...]
--- OUTSIDE RECORDS SUMMARY | 2024-10-23 13:30 | XMS_ITS | Clinical Summary ---
Author Organization [facility] [address] [place] [address] [place] [phone] Phone Care Team Providers Care Network Program Manager Name Role Phone Cuate Oscar MD Primary Care Provider + [phone] Allergies Active Allergy Reactions Criticality Noted Date [...] 11:00 AM EDT Office Visit Endocrinology - [place] [address] [place] [address] Marta Milian PA [address] [place] [address] Health Maintenance Due Date Last Done Comments [...] complete this topic Insurance MEDICARE Care Teams Network Program Manager Relationship Specialty Start Date End Date Cuate Oscar MD [address] [place] [address] [address] Grimaldo PCP - General Internal Medicine 11/11/21
== END 2024-10-23 11:13 | disposition home or self-care (01) ==
LOC: HO.HVNA 11:12
PROVIDERS: Visit Provider Internal Medicine
DX: N39.0 Urinary tract infection, site not specified (principal)
CPT/HCPCS: 81001; 87086

== ENCOUNTER 2024-10-25 08:50 | Outpatient (REF) | payer MEDICARE, SELFPAY ==
--- OUTSIDE RECORDS SUMMARY | 2024-10-25 13:12 | XMS_ITS | Clinical Summary ---
Author Organization [facility] [address] [place] [address] [place] [phone] Phone Care Team Providers Care Group Reservations Coordinator Name Role Phone Cuate Oscar MD Primary Care Provider + [phone] Allergies Active Allergy Reactions Criticality Noted Date [...] 11:00 AM EDT Office Visit Endocrinology - [place] [address] [place] [address] Marta Milian PA [address] [place] [address] Health Maintenance Due Date Last Done Comments [...] complete this topic Insurance MEDICARE Care Teams Group Reservations Coordinator Relationship Specialty Start Date End Date Cuate Oscar MD [address] [place] [address] [address] Grimaldo PCP - General Internal Medicine 11/11/21
--- OUTSIDE RECORDS SUMMARY | 2024-10-25 13:12 | XMS_ITS | Clinical Summary ---
Author Organization [facility] Address [address] [place] [address] Care Team Providers Care Rn Community Name Role Phone Unavailable Primary Care Provider [...]
[2024-10-25 16:53] LABS: Urine Cytology See Pathology rpt
== END 2024-10-25 08:51 | disposition home or self-care (01) ==
LOC: HO.LAB 08:50
PROVIDERS: PCP Internal Medicine; Visit Provider Urology
DX: N39.0 Urinary tract infection, site not specified (principal); R30.0 Dysuria; R39.9 Unspecified symptoms and signs involving the genitourinary system; R33.9 Retention of urine, unspecified
CPT/HCPCS: 51798; 81003; 87086; 88112; 99202

== ENCOUNTER 2024-10-25 08:50 | Outpatient (AMB) | payer MEDICARE, SELFPAY ==
--- NOTE | 2024-10-25 09:22 | A.OFFVIS_ITS ---
Intake Visit Reasons: urinary retention Intake Note: Patient presents today for urinary retention Urology Medication:none Blood Thinner:none Antibiotic Allergies: Penicillin PVR:0ml Allergies Penicillins Allergy (Intermediate, Verified 10/25/24 09:36) RASH HPI Comments Details: 10/25/24-- History of Present Illness The patient is an 84-year-old female presenting with urinary symptoms and nephrolithiasis. Her previous emergency room visit due to urinary difficulty led to catheterization and CAT scans identifying bilateral kidney stones, the largest being 3 mm. The catheter was temporary, and she currently reports no requirement for pads or noticeable urinary incontinence, but there remains some discomfort during urination. Following a previous hysterectomy, she currently retains one ovary. She has been advised to increase hydration to aid stone passage. Urinalysis from the visit was negative, though a cystoscopy is planned to further investigate ongoing urinary symptoms. Urinary Symptoms Review - Experiences irritative voiding symptoms - Previously had difficulty urinating, required catheterization - Bladder discomfort when urinating - Encouraged to drink more water - Does not require pads for urinary incontinence - No significant urinary retention issues - History of catheter use, no current catheter necessary Review of Systems - Genitourinary: Reports irritative voiding symptoms, denies urinary incontinence Review of Systems Const All systems reviewed & are unremarkable except as noted in HPI and below Reports no additional complaints Eyes Reports no additional complaints ENT Reports no additional complaints Card Reports no additional complaints Resp Reports no additional complaints GI Reports no additional complaints Reports as per HPI Musc Reports no additional complaints Skin/Breast Reports system reviewed and no additional complaints, except as documented Neuro Reports no additional complaints Psych Reports no additional complaints Endo Reports no additional complaints Deonte/Lymph Reports no additional complaints Aller/Immun Reports no additional complaints Physical Exam General: Cooperative, healthy appearing and no acute distress Orientation and Consciousness: Patient oriented x3 Head: Yes normal to inspection, Yes normocephalic and Yes atraumatic Eyes: Conjunctivae normal Neck: Yes normal visual inspection and Yes trachea midline Chest: Normal inspection of the chest Respiratory: Normal respiratory effort GI: Normal to inspection : Neuro: Patient oriented x3 Extremities: Skin: Psych: Appearance grossly normal Results - Imaging (CT): Bilateral kidney stones, largest measuring 3 mm - Labs (Urinalysis): Negative Plan For the diagnosis of nephrolithiasis with bilateral kidney stones, we encourage increased fluid intake to aid natural stone passage. The size of the stones suggests a high likelihood of spontaneous passage. We will conduct a cystoscopy to evaluate the cause of the continuing irritative voiding symptoms. A urine cytology is planned to rule out potential malignancy, although the urinalysis was negative. Anticipatory guidance regarding the passage of stones and the management of any symptoms was provided. Future procedures or interventions will depend on the progression of symptoms, with intent to use minimally invasive approaches when possible. Patient was informed and verbally consented to the use of an ambient scribe for clinic note documentation during this visit. Discussion Notes During the visit, I discussed at length the presence of bilateral kidney stones and the current management plan to promote hydration as a means to facilitate stone passage. I educated the patient and her son on the purpose of cystoscopy, its process, and potential findings. Consent was implicitly obtained for submitting urine for cytology to exclude malignancy as part of the diagnostics, ensuring they understood the risks and benefits. We also discussed the likely course of kidney stones given their size, outlining when to pursue further intervention. Follow-up for office cystoscopy was initiated, with a provision for referrals should further treatment become necessary. Patient Instructions - Increase water intake to help pass kidney stones - Observe for any changes in urinary symptoms - Follow up for planned cystoscopy appointment - Seek immediate care if symptoms worsen or if experiencing severe pain, fever, or an inability to urinate PFSH Medical History Chest pressure Osteoporosis (~2007) Tubular adenoma of colon (~2019) Post-menopausal Left arm swelling Swelling of lymph node Cardiac pacemaker in situ (~2018) Sick sinus syndrome Overweight (BMI 25.0-29.9) Insomnia Degenerative joint disease Nocturnal leg cramps Dementia without behavioral disturbance GERD (gastroesophageal reflux disease) Constipation Vitamin D deficiency Neuropathy Vitamin B12 deficiency Epilepsy (~1998) Anemia Sinus bradycardia Pure hypercholesterolemia Diabetes mellitus Surgical History History of endoscopy History of ankle surgery (~2011) History of partial gastrectomy History of colonoscopy History of pacemaker (~2018) History of hysterectomy Family History Father Medical history unknown Mother No problems noted. Daughter No problems noted. Son No problems noted. Other Substance use disorder Social History Household Members: None Housing: House Are you a primary companion caregiver to a significant other at home: No Do you presently have visiting nurse or other home services: No Alcohol intake: never Patient Tobacco Use Status: Former Tobacco user Tobacco use type: Cigarette e-Cigarette/Vaping Use: Never Used Second Hand Smoke Exposure: No Advance Directives Date on File: 10/03/24 service: No Current occupational status: retired Current occupation: [employer] Current occupational exposures/hazards: No Cognitive needs: No Hearing needs: No Vision needs: Yes Office Procedures Post Void Residual Post Residual Void Post Void Residual (PVR): 0 [id number]-[id number] Void Residual by ultrasound Results AMB Urinalysis, Automated UA Leukoctes 0 Kirt/uL Last Edit by Leigha Haynes on 10/25/24 10:26 UA Nitrite Negative Last Edit by Leigha Haynes on 10/25/24 10:26 UA Urobilinogen 3.5 mg/dL Last Edit by Leigha Haynes on 10/25/24 10:26 UA Protein 0 mg/dL Last Edit by Leigha Haynes on 10/25/24 10:26 UA pH 6.0 Last Edit by Leigha Haynes on 10/25/24 10:26 UA Blood 0 Lj/uL Last Edit by Leigha Haynes on 10/25/24 10:26 UA Specific [place] 1.010 Last Edit by Leigha Haynes on 10/25/24 10:26 UA Ketone Negative Last Edit by Leigha Haynes on 10/25/24 10:26 UA Bilirubin 0 mg/dL Last Edit by Leigha Haynes on 10/25/24 10:26 UA Glucose 0 mg/dL Last Edit by Leigha Haynes on 10/25/24 10:26 Results Reviewed Results Reviewed: Laboratory Last Values Urine pH (Auto) 6.0 10/25/24 10:09 Specific [place] (Auto) 1.010 10/25/24 10:09 Urine Protein (Auto) 0 mg/dL 10/25/24 10:09 Glucose (UA)(Auto) 0 mg/dL 10/25/24 10:09 Urine Ketones (Auto) Negative 10/25/24 10:09 Urine Blood (Auto) 0 Lj/uL 10/25/24 10:09 Urine Nitrite (Auto) Negative 10/25/24 10:09 Urine Bilirubin (Auto) 0 mg/dL 10/25/24 10:09 Urine Urobilinogen (Auto) 3.5 mg/dL 10/25/24 10:09 Leukocyte Esterase (Auto) 0 Kirt/uL 10/25/24 10:09 Date of Service: 10/10/24 EXAMINATION: CT ABDOMEN AND PELVIS WITHOUT CONTRAST CLINICAL INFORMATION: Lower abdominal pain. Constipation. COMPARISON: CT dated June 11, 2018. TECHNIQUE: Multidetector volumetric imaging was performed from the superior aspect of the liver through the pubic symphysis. Sagittal and coronal reformatted images were obtained on the technologist's workstation. This CT examination was performed using dose optimization techniques as appropriate, variously including the following: *Automated exposure control *Adjustment of mA and/or kV according to patient size (this includes techniques or standardized protocols for targeted exams where dose is matched to indication/reason for exam; i.e. extremities or head) *Use of iterative reconstruction technique DLP: 235 mGy centimeters. FINDINGS: Limited examination of the intra-abdominal organs and vascular structures due to lack of IV contrast. LUNG BASES: Centrilobular emphysematous changes with the minimal peripheral honeycombing. Elevated leads in the right heart chambers from a pacemaker. Postsurgical changes at the gastroesophageal junction. LIVER, GALLBLADDER, AND BILIARY TREE: Liver measures 15 cm with a nodular surface. No pericholecystic fluid collection or gallbladder wall thickening. No intrahepatic or extrahepatic biliary ductal dilatation. PANCREAS: No peripancreatic fluid collection. No main pancreatic ductal dilatation. SPLEEN: 6 cm. ADRENAL GLANDS: No nodular lesions. KIDNEYS AND URETERS: Nonobstructing less than 3 mm renal calculi, both pelvicalyceal system. Extrarenal pelvis bilaterally. No hydronephrosis. BLADDER: Fluid-filled. GASTROINTESTINAL TRACT: Abundant stool within the large intestine. Questionable small intestine fecal sign. No pneumatosis intestinalis. No pneumoperitoneum. No ascites. No intestinal obstruction pattern. No gross wall thickening. I see a tubular structure that may correspond to the appendix. ABDOMINAL WALL: No gross umbilical hernia. LYMPH NODES: No gross lymphadenopathy, retroperitoneum. VASCULAR: Throughout the abdominal aorta wall and iliac arteries without gross aneurysm. Calcifications in the distal splenic artery with the questionable small splenic aneurysm, thrombosis. PELVIC VISCERA: Inadequate evaluation. OSSEOUS STRUCTURES: Osteopenia versus osteoporosis. S-shaped curvature of the thoracolumbar spine. Multilevel thoracolumbar spondylosis. No acute fracture or gross listhesis. Bilateral nonobstructing nephrolithiasis. No intestinal obstruction pattern. Assessment & Plan Assessment & Plan Orders: Orders Urine Cytology Today N39.0 - Urinary tract infection, site not specified AMB Urinalysis Automated Today Z13.9 - Encounter for screening, unspecified Urine Culture Today N39.0 - Urinary tract infection, site not specified Coding CPT Codes Post Residual Void - PVR CPT Code: 09848-[id number] Void Residual by ultrasound ([id number])
--- OUTSIDE RECORDS SUMMARY | 2024-10-25 09:25 | XMS_ITS | Clinical Summary ---
Author Organization [facility] Address [address] [place] [address] Care Team Providers Care Dimethylaniline Sulfator Operator Name Role Phone Unavailable Primary Care [...]
--- OUTSIDE RECORDS SUMMARY | 2024-10-25 09:25 | XMS_ITS | Clinical Summary ---
Author Organization [facility] [address] [place] [address] [place] [phone] Phone Care Team Providers Care Improvement Specialist Name Role Phone Cuate Oscar MD Primary Care Provider + [phone] Allergies Active Allergy Reactions Criticality Noted Date [...] 11:00 AM EDT Office Visit Endocrinology - [place] [address] [place] [address] Marta Milian PA [address] [place] [address] Health Maintenance Due Date Last Done Comments [...] complete this topic Insurance MEDICARE Care Teams Improvement Specialist Relationship Specialty Start Date End Date Cuate Oscar MD [address] [place] [address] [address]do PCP - General Internal Medicine 11/11/21
== END 2024-10-25 10:50 | disposition home or self-care (01) ==
PROVIDERS: PCP Internal Medicine; Visit Provider Urology
DX: Z13.9 Encounter for screening, unspecified (principal)

== ENCOUNTER 2024-10-29 10:15 | Outpatient (REF) | payer MEDICARE, SELFPAY ==
[2024-10-29 10:44] LABS: MANUAL DIFF FLAG NO
[2024-10-29 11:58] LABS: Basophils Percent Auto 0.7 % (0-2); Eosinophils Absolute Auto 0.1 X10*3/uL (0.0-0.4); Eosinophils Percent Auto 1.7 % (0-4); Hemoglobin 10.8 g/dl (12.0-16.0); Imm Gran Abs Auto 0.01 X10*3/uL (0.00-0.03); Imm Gran Pct Auto 0.2 % (0.0-0.4); Lymphocytes Absolute Auto 1.6 X10*3/uL (1.2-4.9); Lymphocytes Percent Auto 39.4 % (20-40); Mean Corpuscular HGB Conc 30.9 g/dl (31.0-35.0); Mean Corpuscular Hemoglobin 29.8 pg (27.0-33.0); Mean Corpuscular Volume 96.4 fL (80.0-98.0); Mean Platelet Volume 12.2 fL (9.4-12.3); Monocytes Absolute Auto 0.4 X10*3/uL (0.1-1.2); Monocytes Percent Auto 10.3 % (2-11); Neutrophils Percent Auto 47.7 % (45-73); Platelet Count 188 X10*3/uL (160-400); Red Blood Count 3.63 X10*6/uL (4.20-5.50); Red Cell Distribution Width 14.6 % (11.0-16.0); White Blood Count 4.2 X10*3/uL (4.8-10.8)
[2024-10-29 12:05] LABS: Estimated Average Glucose 151 mg/dL; Hemoglobin A1c % 6.9 % (<6.0)
--- OUTSIDE RECORDS SUMMARY | 2024-10-29 12:06 | XMS_ITS | Clinical Summary ---
Author Organization [facility] [address] [place] [address] [place] [phone] Phone Care Team Providers Care Dye Range Feeder Name Role Phone Cuate Oscar MD Primary Care Provider + [phone] Allergies Active Allergy Reactions Criticality Noted Date [...] 11:00 AM EDT Office Visit Endocrinology - [place] [address] [place] [address] Marta Milian PA [address] [place] [address] Health Maintenance Due Date Last Done Comments [...] complete this topic Insurance MEDICARE Care Teams Dye Range Feeder Relationship Specialty Start Date End Date Cuate Oscar MD [address] [place] [address] [address] PCP - General Internal Medicine 11/11/21
--- OUTSIDE RECORDS SUMMARY | 2024-10-29 12:06 | XMS_ITS | Clinical Summary ---
Author Organization [facility] Address [address] [place] [address] Care Team Providers Care Gas Tester Name Role Phone Unavailable Primary Care Provider [...]
[2024-10-29 12:31] LABS: B Type Natriuretic Peptide 237 pg/mL (<100)
[2024-10-29 13:14] LABS: Alanine Aminotransferase 28 U/L (0-31); Albumin Level 3.6 g/dL (3.5-5.0); Anion Gap 14 (12-20); Aspartate Amino Transferase 29 U/L (5-31); Bilirubin Total 0.6 mg/dL (0.0-1.0); Blood Urea Nitrogen 14 mg/dL (9-16); Calcium 8.6 mg/dL (8.4-10.2); Carbon Dioxide 18 mmol/L (22-29); Chloride 114 mmol/L (96-108); Cholesterol 123 mg/dL (<200); Estimated Glomerular Filt Rate > 60; Glucose Fasting 143 mg/dL (60-99); HDL Cholesterol 65 mg/dL (>40); LDL Cholesterol Calculated 49 mg/dL (<100); Potassium 4.5 mmol/L (3.3-5.1); Sodium 141 mmol/L (135-145); TSH reflex Free T4 1.35 uIU/mL (0.32-4.0); Total Protein 7.2 g/dL (6.5-8.0); Triglycerides 49 mg/dL (<150); Vitamin D 25-OH Total 45.4 ng/mL (>30)
[2024-10-29 13:16] LABS: Folate 11.4 ng/mL (> or = 4.0); Vitamin B12 1627 pg/mL (200-900)
[2024-10-29 13:36] LABS: Alkaline Phosphatase 70 U/L (39-117)
[2024-10-29 15:40] LABS: Appearance Urine Clear; Color Urine Yellow; Glucose Urine UA Negative (Negative); Leukocyte Esterase Urine Moderate (2+) (Negative); Nitrite Urine Negative (Negative); UMIC TRIGGER UACC YES; Urine Blood Negative (Negative); Urine Ketones Negative (Negative); Urine Protein Negative (Neg-Trace)
[2024-10-29 15:54] LABS: Bacteria Urine None Seen (None Seen); Hyaline Casts Urine 0-2 /LPF (0-2); RBC Urine 0-2 /HPF (0-2); Squamous Epithelial Cell Urine 0-2 /HPF (0-2); UACC Culture Trigger YES; WBC Urine 0-5 /HPF (0-5)
[2024-10-29 16:38] LABS: Creatinine Urine 21.84 mg/dL; Microalbum/Creatinine Ratio Ur 27.4 ug/mg cr (<30)
[2024-11-01 20:08] LABS: Levetiracetam Keppra 53.4 mcg/mL (6.0-46.0)
== END 2024-10-29 10:16 | disposition home or self-care (01) ==
LOC: HO.LAB 10:15
PROVIDERS: PCP Internal Medicine; Visit Provider Internal Medicine
DX: I50.9 Heart failure, unspecified (principal); E11.9 Type 2 diabetes mellitus without complications; E78.00 Pure hypercholesterolemia, unspecified; E53.8 Deficiency of other specified B group vitamins; E55.9 Vitamin D deficiency, unspecified; D64.9 Anemia, unspecified; G40.909 Epilepsy, unspecified, not intractable, without status epilepticus; R30.0 Dysuria
CPT/HCPCS: 36415; 80053; 80061; 80177; 81001; 82043; 82306; 82570; 82607; 82746; 83036; 83880; 84443; 85025; 87086

== ENCOUNTER 2024-11-05 10:02 | Outpatient (AMB) | payer MEDICARE, SELFPAY ==
[2024-11-05 10:07] VITALS: BP 118/62; BMI 17.1
--- NOTE | 2024-11-05 10:07 | MHC.PC.OV ---
Vital Signs 11/05/24 10:07 Height 5 ft Weight 87 lb 8 oz BMI 17.1 BP 118/62 Blood Pressure Location Lt brachial Position Sitting Pulse Source Pulse Oximeter Oxygen Delivery Method Room Air Intake Visit Reasons: 4mth f/u Floor Broker Required: No Accompanied by: Self / Same As Patient Allergies Penicillins Allergy (Intermediate, Verified 11/05/24 15:07) RASH Medication List - Last Reconciled 11/05/24 by Cuate Oscar MD acetaminophen 500 mg PO Q6H PRN alendronate 70 mg PO MO atorvastatin 40 mg PO BEDTIME 90 days benzonatate 100 mg PO TID PRN bisacodyl (Dulcolax (bisacodyl)) 10 mg (2 x 5 mg) PO BEDTIME PRN 30 days cholecalciferol (vitamin D3) (Vitamin D3) 50 mcg PO BID [COMPRESSION STOCKINGS - knee-high (medium compression) As directed] cyanocobalamin (vitamin B-12) 1,000 mcg PO DAILY docusate sodium 100 mg PO BID PRN donepezil 5 mg PO BEDTIME ferrous sulfate 325 mg PO DAILY 90 days gabapentin 300 mg PO BID hydrocortisone 2.5% 1 appl AL Q8-12H latanoprost 0.005% 1 drp ophthalmic (eye) BEDTIME levetiracetam 500 mg PO BID meclizine 12.5 mg PO TID PRN metformin 500 mg PO BID 90 days nut.tx.gluc.intol,lac-free,soy (Glucerna Therapeutic Nutrition oral liquid) 1 can orally 3 times a day with meals; 30 days omeprazole 20 mg PO BEDTIME sennosides (senna) 17.2 mg (2 x 8.6 mg) PO BID PRN 90 days Tobacco use date assessed: 11/05/24 Fall risk assessment: 2 + Falls in past year Last assessed Fall Risk: 11/05/24 Dental Screening Dental Screen Date: 11/05/24 Did you have a dental visit in the last 12 months?: No Did you have a dental problem in the last 6 months where you did not have access to dental care?: No Was dental information given to patient?: No HPI 4mth f/u HPI Details Patient comes in today for her follow up visit States that she feels okay She denies any headaches or dizziness Denies any chest pains, no increased SOB No nausea/vomiting, no abdominal pain No change in bowel habits noted She had her follow up labs done last week - to discuss her results [facility] Medical History Osteoporosis (~2007) Tubular adenoma of colon (~2019) Post-menopausal Left arm swelling Swelling of lymph node Cardiac pacemaker in situ (~2018) Sick sinus syndrome Insomnia Degenerative joint disease Nocturnal leg cramps Dementia without behavioral disturbance GERD (gastroesophageal reflux disease) Constipation Vitamin D deficiency Neuropathy Vitamin B12 deficiency Epilepsy (~1998) Anemia Sinus bradycardia Pure hypercholesterolemia Diabetes mellitus Surgical History History of endoscopy History of ankle surgery (~2011) History of partial gastrectomy History of colonoscopy History of pacemaker (~2018) History of hysterectomy Family History Father Medical history unknown Mother No problems noted. Daughter No problems noted. Son No problems noted. Other Substance use disorder Social History Household Members: None Housing: House Are you a primary health care marketing manager to a significant other at home: No Do you presently have visiting nurse or other home services: No Alcohol intake: never Patient Tobacco Use Status: Former Tobacco user Tobacco use type: Cigarette e-Cigarette/Vaping Use: Never Used Second Hand Smoke Exposure: No Use of substances other than those prescribed or required for medical reasons: No Have you been hit, kicked, punched, or otherwise hurt by someone within the past year? 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 1. Little interest or pleasure in doing things: not at all 2. Feeling down, depressed, or hopeless: not at all 3. Trouble falling or staying asleep, or sleeping too much: several days 4. Feeling tired or having little energy: several days 5. Poor appetite or overeating: several days 6. Feeling bad about yourself - or that you are a failure or have let yourself or your family down: not at all 7. Trouble concentrating on things, such as reading the newspaper or watching television: not at all 8. Moving or speaking so slowly that other people could have noticed. Or the opposite - being so fidgety or restless that you have been moving around a lot more than usual: several days 9. Thoughts that you would be better off or of hurting yourself in some way: not at all Total score: 4 Depression Screening Interpretation: Positive Depression Screening Follow-up: Follow-up Visit Requested Depression Screening Done: Yes 77747 - PHQ-9 Billing: Yes Source: Developed by Drs. Yash Harris, Noemi Kaur, Alexander Parnell and colleagues, with an educational brittany from [employer]. Thrive Questionnaire Date Thrive assessed: 11/05/24 I am a: Patient What is your living situation today?: I have a steady place to live Within the past 12 months, did the food you bought not last and you didn't have the money to get more?: Never true Within the past 12 months, did you worry whether your food would run out before you got money to buy more?: Never true Do you have trouble paying for medicines?: No Do you have trouble getting transportation to medical appointments?: No Do you have trouble paying your heating and electricity bill?: No Do you have trouble taking care of your child, family member or friend?: No Do you have trouble with day-to-day activities such as bathing, preparing meals, shopping, managing finances, etc.?: No Are you currently unemployed and looking for a job?: No Are you interested in more education?: No Please select the resources that you would like help with: None Currently or been in a relationship where the following occur: No concerns reported THRIVE Score: 0 AUDIT C Alcohol Use Questionnaire (AUDIT-C) 1. How often do you have a drink containing alcohol?: Never 3. How often do you have six or more drinks on one occasion?: Never Total Score: 0 Score Reviewed/Action Taken: Yes SHER-7 AMB Questionnaire SHER-7 Date SHER - 7 assessed: 11/05/24 Feeling nervous, anxious, or on edge: 0 = Not at all Not being able to stop or control worryin = Not at all Worrying too much about different things: 0 = Not at all Trouble relaxin = Not at all Being so restless that it is hard to sit still: 0 = Not at all Becoming easily annoyed or irritable: 0 = Not at all Feeling afraid as if something awful might happen: 0 = Not at all Total SHER-7 score (0-4 normal; 5-9 mild; 10-14 moderate; 15-21 severe): 0 Source: Developed by Drs. Yash Harris, Noemi Kaur, Alexander Parnell and colleagues, with an educational brittany from [employer]. Review of Systems Const Denies chills, Reports fatigue, Denies fever(s) and Denies headache(s) ENT Denies dysphagia, Denies dizziness, Denies otalgia, Denies headache(s), Denies neck pain, Denies odynophagia and Denies sore throat Card Denies chest pain, Denies palpitations and Denies dyspnea Resp Denies chest congestion, Denies cough and Denies dyspnea GI Denies abdominal pain, Reports constipation, Denies dysphagia, Denies heartburn, Denies diarrhea, Denies nausea, Denies odynophagia and Denies vomiting Denies difficulty voiding, Denies nocturia, Denies dysuria and Denies urinary urgency Musc Denies back pain and Denies neck pain Skin/Breast Denies rash Neuro Denies dizziness, Denies headache(s) and Reports radicular pain (improved on Gabapentin) Endo Reports fatigue and Denies palpitations Physical exam (Primary Care) Vital Signs: Last Vital Signs BP 118/62 11/05/24 10:07 Oxygen Delivery Method Room Air 11/05/24 10:07 BMI result Body Mass Index 17.1 Tobacco/Smoking Status: Tobacco use Status Tobacco use date assessed 11/05/24 11/05/24 10:15 Patient Tobacco Use Status Former Tobacco user 11/05/24 10:15 Tobacco use type Cigarette 11/05/24 10:15 e-Cigarette/Vaping Use Never Used 11/05/24 10:15 PHQ-9: PHQ-9 Score PHQ-9: Total score 4 11/05/24 10:45 Depression Screening Interpretation: Positive Depression Screening Follow-up: Follow-up Visit Requested Thrive Assessment: Date of Thrive Assessment Date Thrive assessed 11/05/24 11/05/24 10:15 Currently or been in a relationship where the following occur: No concerns reported Const General: no acute distress and alert HENMT Ears: TM's normal bilaterally and EAC's normal Throat: Yes posterior oropharynx normal and Yes tonsils normal (no TP congestion) Neck Neck: Yes supple and No lymphadenopathy Thyroid: Thyroid normal Resp Auscultation: clear to auscultation bilaterally, no rales and no wheezes Cardio Rate: regular rate Rhythm: regular rhythm Heart sounds: no murmurs GI Palpation (GI): Soft to palpation and nontender Auscultation: normal bowel sounds General: Yes no CVA tenderness Back/Spine/Pelvis Back: no CVA tenderness Thoracic/Lumbar Spine: No lumbar spinal tenderness Skin Rashes: no rashes Extrem General: No clubbing, No cyanosis and Yes edema (1+ bipedal edema) Left upper extremity: shoulder/upper arm Details: tenderness (mild) Location: of the A-C joint; no swelling Right lower extremity: normal to inspection Left lower extremity: normal to inspection Results Reviewed Results Reviewed: Laboratory Tests 07/31/24 10/29/24 10/29/24 15:04 10:42 12:32 WBC 4.0 L 4.2 L Hgb 10.8 L Hct 35.0 L Plt Count 188 D Sodium 141 Potassium 4.5 Creatinine 0.82 Estimated GFR > 60 Fasting Glucose 143 H Hemoglobin A1c % 6.9 H Calcium 8.6 AST 29 ALT 28 B-Natriuretic Peptide 237 H Triglycerides 49 Cholesterol 123 LDL Cholesterol, Calc 49 HDL Cholesterol 65 Vitamin B12 1627 H 25-OH Vitamin D Total 45.4 TSH 1.35 Ur Specific [place] 1.010 Urine Protein Negative Urine Glucose (UA) Negative Urine Blood Negative Urine Nitrite Negative Ur Leukocyte Esterase Moderate (2+) H Microalb/Creat Ratio 27.4 Levetiracetam 53.4 H Coding Level of Care Code Est Pt Level 4 (55486) Diagnoses Pure hypercholesterolemia E78.00 Type 2 diabetes mellitus with diabetic neuropathy, without long-term current use of insulin E11.40 Diabetes mellitus type: type 2 Diabetes mellitus rodent exterminator insulin use: without rodent exterminator use Diabetes mellitus complication status: with neurologic complications Diabetes mellitus complication detail: with unspecified neuropathy Stasis edema of both lower extremities I87.303 Sinus bradycardia R00.1 Anemia, unspecified type D64.9 Anemia type: unspecified type Nonintractable epilepsy without status epilepticus, unspecified epilepsy type G40.909 Epilepsy type: unspecified Intractability: not intractable Status epilepticus: without status epilepticus Vitamin B12 deficiency E53.8 Neuropathy G62.9 Vitamin D deficiency E55.9 Nocturnal leg cramps G47.62 Constipation, unspecified constipation type K59.00 Constipation type: unspecified constipation type Gastroesophageal reflux disease without esophagitis K21.9 Esophagitis presence: without esophagitis Dementia without behavioral disturbance F03.90 Osteoarthritis, unspecified osteoarthritis type, unspecified site M19.90 Osteoarthritis location: unspecified site Osteoarthritis type: unspecified Glaucoma, unspecified glaucoma type, unspecified laterality H40.9 Glaucoma type: unspecified Laterality: unspecified laterality Insomnia, unspecified type G47.00 Insomnia type: unspecified Additional Codes PHQ-9 - 75878 - PHQ-9 Billing: Yes ([id number]) Assessment & Plan Assessment & Plan (1) Pure hypercholesterolemia: Code(s): E78.00 - Pure hypercholesterolemia, unspecified Category: Medical Plan: Results of her labs done last week reviewed and discussed with patient and her son Reinforced low cholesterol diet Continue Atorvastatin 40 mg QD Will recheck her labs and fasting lipids in 3 months for follow-up (2) Diabetes mellitus: Code(s): E11.9 - Type 2 diabetes mellitus without complications Category: Medical Qualifiers: Diabetes mellitus type: type 2 Diabetes mellitus rodent exterminator insulin use: without rodent exterminator use Diabetes mellitus complication status: with neurologic complications Diabetes mellitus complication detail: with unspecified neuropathy Qualified Code(s): E11.40 - Type 2 diabetes mellitus with diabetic neuropathy, unspecified Plan: Her HgbA1c was at 6.9% on her labs done last week (was previously at 6.2% a few months ago) - goal is at least <7.0% Reinforced diabetic diet Continue Metformin 500 mg BID (3) Stasis edema of both lower extremities: Code(s): I87.303 - Chronic venous hypertension (idiopathic) without complications of bilateral lower extremity Category: Medical Plan: Discussed with patient and her son that we will hold off on starting patient on oral diuretics as we do not want to risk dropping her blood pressure too low or cause her to get dehydrated as she already has poor oral intake and does not usually drink much all throughout the day Have also reassured them that based on her recent lab results her edema does not appear to be predominantly due to cardiac or renal causes Will have her try wearing some compression stockings to help minimize / reduce her edema She is also reminded to try to keep her legs elevated as often as she can throughout the day and at night when she is sleeping (4) Sinus bradycardia: Comment: (s/p [employer] DCPP placed 2019) Code(s): R00.1 - Bradycardia, unspecified Category: Medical Plan: Due to sick sinus syndrome - she is S/P dual-chamber permanent pacemaker insertion in 2019 with no recurrence of symptoms since She continues to be monitored remotely by cardiology for any untoward or irregular rhythms or abnormalities Follow up with cardiology as scheduled (5) Anemia: Code(s): D64.9 - Anemia, unspecified Category: Medical Qualifiers: Anemia type: unspecified type Qualified Code(s): D64.9 - Anemia, unspecified Plan: S/P IV iron infusion x 1 back in April 2022 and she apparently has not needed any more infusions afterwards She was recommended by hematology to continue on Procrit but only if her Hgb drops below 10 .5 Her H/H is again low at 10.8/35.5 on her recent labs Will continue to monitor her CBC regularly (6) Epilepsy: Onset Date: ~1998 Comment: Complex partial seizure Code(s): G40.909 - Epilepsy, unspecified, not intractable, without status epilepticus Category: Medical Qualifiers: Epilepsy type: unspecified Intractability: not intractable Status epilepticus: without status epilepticus Qualified Code(s): G40.909 - Epilepsy, unspecified, not intractable, without status epilepticus Plan: Complex partial seizure with no recurrence Continue Levetiracetam 750 mg BID Follow-up with Neurology as scheduled (7) Vitamin B12 deficiency: Comment: (related to partial gastrectomy for PUD) Code(s): E53.8 - Deficiency of other specified B group vitamins Category: Medical Plan: Her B12 level is again very high on her recent labs - they have previously been instructed to try cutting back on her B12 tablets to every other day but she is currently still on it daily Have advised patient's son to try and help her remember to cut back on her Vitamin B12 to 1 tablet every other day Will continue to monitor her B12 level regularly (8) Neuropathy: Code(s): G62.9 - Polyneuropathy, unspecified Category: Medical Plan: EMG and NCV done back in April 2018 showed findings consistent with peripheral neuropathy Repeat NCV & EMG done in February 2023 showed (+) 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 and findings that are consistent with minimal chronic neuropathic changes in the EDB muscle States that her symptoms have improved a lot on Gabapentin, which she currently still takes at 300 mg Q HS (9) Vitamin D deficiency: Code(s): E55.9 - Vitamin D deficiency, unspecified Category: Medical Plan: Continue Vitamin-D3 2000 units QD (10) Nocturnal leg cramps: Code(s): G47.62 - Sleep related leg cramps Category: Medical Plan: Continue Ropinirole 0.25 mg Q HS and Tizanidine 2 mg Q HS PRN for leg cramps (11) Constipation: Code(s): K59.00 - Constipation, unspecified Category: Medical Qualifiers: Constipation type: unspecified constipation type Qualified Code(s): K59.00 - Constipation, unspecified Plan: Patient is encouraged again on increased oral fluids and dietary fiber Continue MiraLax 17 g daily and Colace 100 mg 1 to 2 times a day as needed; she was also started on Amitiza 8 mcg BID by GI a few months ago Follow up with GI (Dr. Milian) as scheduled (12) GERD (gastroesophageal reflux disease): Code(s): K21.9 - Gastro-esophageal reflux disease without esophagitis Category: Medical Qualifiers: Esophagitis presence: without esophagitis Qualified Code(s): K21.9 - Gastro-esophageal reflux disease without esophagitis Plan: Dietary restrictions reinforced Continue Omeprazole 20 mg QD (13) Dementia without behavioral disturbance: Code(s): F03.90 - Unspecified dementia, unspecified severity, without behavioral disturbance, psychotic disturbance, mood disturbance, and anxiety Category: Medical Plan: Patient's dementia has been stable for a while now, per family Follow up with Neurology as scheduled (14) Degenerative joint disease: Code(s): M19.90 - Unspecified osteoarthritis, unspecified site Category: Medical Qualifiers: Osteoarthritis location: unspecified site Osteoarthritis type: unspecified Qualified Code(s): M19.90 - Unspecified osteoarthritis, unspecified site Plan: S/P? medial and lateral malleolar fractures of the left ankle in? 2011 -? symptoms have been mostly manageable (15) Glaucoma: Code(s): H40.9 - Unspecified glaucoma Category: Medical Qualifiers: Glaucoma type: unspecified Laterality: unspecified laterality Qualified Code(s): H40.9 - Unspecified glaucoma Plan: Continue Brimonidine eyedrops 0.1% BID Follow up with ophthalmology as scheduled (16) Insomnia: Code(s): G47.00 - Insomnia, unspecified Category: Medical Qualifiers: Insomnia type: unspecified Qualified Code(s): G47.00 - Insomnia, unspecified Plan: Sleep hygiene reinforced Continue Melatonin 5 mg once a day at bedtime as needed Plan Follow up in 3 months Orders: Orders Complete Blood Count Auto Diff 3 Months D64.9 - Anemia, unspecified Comprehensive [place]. Panel Fast 3 Months E78.00 - Pure hypercholesterolemia, unspecified TSH reflex Free T4 3 Months E78.00 - Pure hypercholesterolemia, unspecified UA CC w/rflx Micro + Cult 3 Months R30.0 - Dysuria Vitamin B12 and Folate 3 Months E53.8 - Deficiency of other specified B group vitamins Lipid Panel 3 Months E78.00 - Pure hypercholesterolemia, unspecified Microalbumin, Random (w Creat) 3 Months E11.9 - Type 2 diabetes mellitus without complications Hemoglobin A1c 3 Months E11.9 - Type 2 diabetes mellitus without complications Vitamin D 25-OH Total 3 Months E55.9 - Vitamin D deficiency, unspecified
== END 2024-11-05 10:54 | disposition home or self-care (01) ==
LOC: HO.HMCH 10:03
PROVIDERS: PCP Internal Medicine; Visit Provider Internal Medicine
DX: E78.00 Pure hypercholesterolemia, unspecified (principal); E11.40 Type 2 diabetes mellitus with diabetic neuropathy, unspecified; G40.909 Epilepsy, unspecified, not intractable, without status epilepticus; F03.90 Unspecified dementia, unspecified severity, without behavioral disturbance, psychotic disturbance, mood disturbance, and anxiety; I87.303 Chronic venous hypertension (idiopathic) without complications of bilateral lower extremity; R00.1 Bradycardia, unspecified; D64.9 Anemia, unspecified; E53.8 Deficiency of other specified B group vitamins; G62.9 Polyneuropathy, unspecified; E55.9 Vitamin D deficiency, unspecified; G47.62 Sleep related leg cramps; K59.00 Constipation, unspecified

== ENCOUNTER → 2024-11-05 10:02 | Outpatient (BNVA) | payer MEDICARE, SELFPAY | PROVIDERS: PCP Internal Medicine; Visit Provider Internal Medicine | DX: E78.00 Pure hypercholesterolemia, unspecified (principal); E11.40 Type 2 diabetes mellitus with diabetic neuropathy, unspecified; I87.303 Chronic venous hypertension (idiopathic) without complications of bilateral lower extremity; R00.1 Bradycardia, unspecified; D64.9 Anemia, unspecified; G40.909 Epilepsy, unspecified, not intractable, without status epilepticus; E53.8 Deficiency of other specified B group vitamins; G62.9 Polyneuropathy, unspecified; E55.9 Vitamin D deficiency, unspecified; G47.62 Sleep related leg cramps; K59.00 Constipation, unspecified; K21.9 Gastro-esophageal reflux disease without esophagitis; F03.90 Unspecified dementia, unspecified severity, without behavioral disturbance, psychotic disturbance, mood disturbance, and anxiety; M19.90 Unspecified osteoarthritis, unspecified site; H40.9 Unspecified glaucoma; G47.00 Insomnia, unspecified | CPT/HCPCS: 96127; 99212 ==

== ENCOUNTER 2024-11-12 10:54 | Outpatient (AMB) | payer MEDICARE, SELFPAY ==
--- NOTE | 2024-11-12 11:19 | MHC.OFFVIS ---
Intake Visit Reasons: cysto Intake Note: Patient presents to office today for cystoscopy Urology Medication:none Blood Thinner:none Antibiotic Allergies: Penicillin Allergies Penicillins Allergy (Intermediate, Verified 12/20/24 12:43) RASH Medication List - Last Reconciled 11/12/24 by Per Sanchez MD acetaminophen 500 mg PO Q6H PRN alendronate 70 mg PO MO atorvastatin 40 mg PO BEDTIME 90 days benzonatate 100 mg PO TID PRN bisacodyl (Dulcolax (bisacodyl)) 10 mg (2 x 5 mg) PO BEDTIME PRN 30 days cholecalciferol (vitamin D3) (Vitamin D3) 50 mcg PO BID [COMPRESSION STOCKINGS - knee-high (medium compression) As directed] cyanocobalamin (vitamin B-12) 1,000 mcg PO DAILY docusate sodium 100 mg PO BID PRN donepezil 5 mg PO BEDTIME doxycycline hyclate 100 mg PO BID 5 days estradiol 0.01%(0.1mg/gram) (Estrace) apply a pea sized amount to fingertip and appy cream vaginally at bedtime vaginally daily; ferrous sulfate 325 mg PO DAILY 90 days gabapentin 300 mg PO BID hydrocortisone 2.5% 1 appl SC Q8-12H latanoprost 0.005% 1 drp ophthalmic (eye) BEDTIME levetiracetam 500 mg PO BID meclizine 12.5 mg PO TID PRN metformin 500 mg PO BID 90 days nut.tx.gluc.intol,lac-free,soy (Glucerna Therapeutic Nutrition oral liquid) 1 can orally 3 times a day with meals; 30 days omeprazole 20 mg PO BEDTIME sennosides (senna) 17.2 mg (2 x 8.6 mg) PO BID PRN 90 days HPI Comments Details: 11/12/24-- 84-year-old female presenting with dysuria and urinary tract symptoms. Initially evaluated on October 25, 2024, for these issues, imaging showed bilateral nephrolithiasis with the largest stone measuring 3 mm. The patient reported improvement in urination about a month ago before dysuria returned. Dysuria is primarily characterized by a burning sensation during urination. There is also a report of transient hematuria about a month or two ago. She mentioned experiencing fecal incontinence for more than two months, for which a GI specialist was previously consulted. She has undergone a hysterectomy. Her son is actively participating in her care. Urinary Symptoms Review - Dysuria with burning sensation - Transient hematuria reported once, about a month or two ago - Previous improvement in urination reported about a month ago - Recurrent irritated voiding symptoms Results: Office Cystoscopy: findings--no suspicious bladder lesions 10/25/24-- 84-year-old female presenting with urinary symptoms and nephrolithiasis. Her previous emergency room visit due to urinary difficulty led to catheterization and CAT scans identifying bilateral kidney stones, the largest being 3 mm. The catheter was temporary, and she currently reports no requirement for pads or noticeable urinary incontinence, but there remains some discomfort during urination. Following a previous hysterectomy, she currently retains one ovary. She has been advised to increase hydration to aid stone passage. Urinalysis from the visit was negative, though a cystoscopy is planned to further investigate ongoing urinary symptoms. Urinary Symptoms Review - Experiences irritative voiding symptoms - Previously had difficulty urinating, required catheterization - Bladder discomfort when urinating - Encouraged to drink more water - Does not require pads for urinary incontinence - No significant urinary retention issues currently - History of catheter use, no current catheter necessary Results - Imaging (CT): Bilateral kidney stones, largest measuring 3 mm - Labs (Urinalysis): Negative [facility] Medical History Osteoporosis (~2007) Tubular adenoma of colon (~2019) Post-menopausal Left arm swelling Swelling of lymph node Cardiac pacemaker in situ (~2018) Sick sinus syndrome Insomnia Degenerative joint disease Nocturnal leg cramps Dementia without behavioral disturbance GERD (gastroesophageal reflux disease) Constipation Vitamin D deficiency Neuropathy Vitamin B12 deficiency Epilepsy (~1998) Anemia Sinus bradycardia Pure hypercholesterolemia Diabetes mellitus Surgical History History of endoscopy History of ankle surgery (~2011) History of partial gastrectomy History of colonoscopy History of pacemaker (~2018) History of hysterectomy Family History Father Medical history unknown Mother No problems noted. Daughter No problems noted. Son No problems noted. 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 Current occupational exposures/hazards: No Cognitive needs: No Hearing needs: No Vision needs: Yes Review of Systems Const All systems reviewed & are unremarkable except as noted in HPI and below Reports no additional complaints Eyes Reports no additional complaints ENT Reports no additional complaints Card Reports no additional complaints Resp Reports no additional complaints GI Reports no additional complaints Reports as per HPI Musc Reports no additional complaints Skin/Breast Reports system reviewed and no additional complaints, except as documented Neuro Reports no additional complaints Psych Reports no additional complaints Endo Reports no additional complaints Deonte/Lymph Reports no additional complaints Aller/Immun Reports no additional complaints Office Procedures Cystoscopy Consent Discussed risk and benefit or proposed procedure with the patient. Information consent for procedure given to the patient. Discussed technical aspects, risks, benefits and alternatives in full. Addressed all of the patient's questions and concerns regarding the procedure. The patient demonstrated knowledge and understanding. They wish to proceed with this procedure. Preparation The patient was prepped in the usual manner. A helicopter technician was present and in the room. Genitalia was prepped with betadine solution in a sterile manner. Lidocaine Jelly 2% was placed into the urethra and 16Fr flexible Olympus cystoscope was inserted into the meatus after adequate lubrication. Procedure Time out per protocol performed. Bladder Inspection Bladder Inspection: The bladder was inspected in its entirety with utilization retroflexion displaying: Tumor(s): no suspicious bladder lesions visualized Trabeculation: NA Mucosal Erthema: NA Orifices: normal shape and position Urethra: normal Cystoscopy findings: WNL, no suspicious bladder lesions visualized training and development rep utilized via Ipad for nursing prep. [id number] DISPOSABLE SCOPE URO-G FLEXIBLE SCOPE Procedure code (CPT) selection complete Office Meds lidocaine HCl 2 % mucosal jelly in applicator Performing Provider: Per Sanchez MD [facility] Administered by: Elly Tang RN on 11/12/24 11:38 Dose Route Admin Location Dispensed Lot Number Expiration Date NDC Political Reporter 10 mL intra-urethral 20 mL ciprofloxacin HCl 500 mg tablet Performing Provider: Per Sanchez MD [facility] Administered by: Elly Tang RN on 11/12/24 11:38 Dose Route Admin Location Dispensed Lot Number Expiration Date NDC Political Reporter 500 mg PO 1 tab phenazopyridine 200 mg tablet Performing Provider: Per Sanchez MD Performing Location: [facility] Administered by: Elly Tang RN on 11/12/24 11:38 Dose Route Admin Location Dispensed Lot Number Expiration Date NDC Political Reporter 200 mg PO 1 tab Results AMB Urinalysis, Automated UA Leukoctes 15 Kirt/uL Last Edit by Leigha Haynes on 11/12/24 11:37 UA Nitrite Negative Last Edit by Crystal Haynes on 11/12/24 11:37 UA Urobilinogen 3.5 mg/dL Last Edit by Leigha Haynes on 11/12/24 11:37 UA Protein 1 mg/dL Last Edit by Leigha Haynes on 11/12/24 11:37 UA pH 6.0 Last Edit by Leigha Haynes on 11/12/24 11:37 UA Blood 0 Lj/uL Last Edit by Crystal Haynes on 11/12/24 11:37 UA Specific [place] 1.015 Last Edit by Crystal Haynes on 11/12/24 11:37 UA Ketone Negative Last Edit by Leigha Haynes on 11/12/24 11:37 UA Bilirubin 0 mg/dL Last Edit by Leigha Haynes on 11/12/24 11:37 UA Glucose 0 mg/dL Last Edit by Crystal Haynes on 11/12/24 11:37 Results Reviewed Results Reviewed: Laboratory Last Values Urine pH (Auto) 6.0 11/12/24 11:30 Specific [place] (Auto) 1.015 11/12/24 11:30 Urine Protein (Auto) 1 mg/dL 11/12/24 11:30 Glucose (UA)(Auto) 0 mg/dL 11/12/24 11:30 Urine Ketones (Auto) Negative 11/12/24 11:30 Urine Blood (Auto) 0 Lj/uL 11/12/24 11:30 Urine Nitrite (Auto) Negative 11/12/24 11:30 Urine Bilirubin (Auto) 0 mg/dL 11/12/24 11:30 Urine Urobilinogen (Auto) 3.5 mg/dL 11/12/24 11:30 Leukocyte Esterase (Auto) 15 Kirt/uL 11/12/24 11:30 Assessment & Plan Assessment & Plan (1) Dysuria: Code(s): R30.0 - Dysuria Category: Medical (2) UTI symptoms: Code(s): R39.9 - Unspecified symptoms and signs involving the genitourinary system Category: Medical (3) Urinary retention: Code(s): R33.9 - Retention of urine, unspecified Category: Medical (4) Kidney stone: Code(s): N20.0 - Calculus of kidney Category: Medical (5) Atrophic vaginitis: Code(s): N95.2 - Postmenopausal atrophic vaginitis Category: Medical Plan Plan Following a normal cystoscopy result, the patient will receive treatment for dysuria with an estrogen cream and an oral antibiotic. She is advised to contact her primary care physician regarding fecal incontinence and follow potential referral to a GI specialist. Lifestyle modifications for kidney stone prevention include increased fluid intake, reduced sodium and animal protein consumption, and lemon usage. The patient's son was involved in discussions, and consent was obtained for the treatment plan. Patient Instructions - Apply the prescribed estrogen cream vaginally as directed each day. - Take the oral antibiotic by mouth according to the prescribed dosage. - Maintain increased fluid intake daily. - Reduce salt and animal protein in the diet. - Add lemon to the water for its potential stone-inhibiting effects. Orders: Orders AMB Urinalysis Automated 11/12/24 Z13.9 - Encounter for screening, unspecified AMB Cystoscopy 11/12/24 R30.0 - Dysuria, R39.9 - Unspecified symptoms and signs involving the genitourinary system Medications: New doxycycline hyclate 100 mg PO BID 10 tabs 0RF 5 days estradiol 0.01%(0.1mg/gram) (Estrace) apply a pea sized amount to fingertip and appy cream vaginally at bedtime vaginally daily; 42.5 grams 2RF Patient Instructions: The patient had an opportunity to ask questions regarding treatment plan. The patient expressed understanding and agreement with the above treatment plan. The patient is aware they should contact our office by phone for worsening of their current condition or the appearance of new symptoms. Compliance is encouraged with any medications and followup testing that is ordered. It is a privilege to be allowed the opportunity to participate in the urologic care of your patient. If you have any questions or concerns regarding treatment for the above conditions please do not hesitate to contact me. The office telephone contact is [phone]. This note is constructed in part using voice recognition software. While every effort has been made to ensure accuracy coffee weigher errors may have been included. Yours sincerely, Per Sanchez MD Scribe Plan - Not visible on output: Patient was informed and verbally consented to the use of an ambient scribe for clinic note documentation during this visit. Coding Level of Care Code Est Pt Level 4 (89914) Diagnoses Dysuria R30.0 UTI symptoms R39.9 Urinary retention R33.9 Kidney stone N20.0 Atrophic vaginitis N95.2 CPT Codes Cystoscopy - CPT: 73699-[id number] ([id number])
== END 2024-11-12 12:18 | disposition home or self-care (01) ==
LOC: HO.HUSH 10:55
PROVIDERS: PCP Internal Medicine; Visit Provider Urology
DX: R30.0 Dysuria (principal); R39.9 Unspecified symptoms and signs involving the genitourinary system; Z13.9 Encounter for screening, unspecified
CPT/HCPCS: 52000

== ENCOUNTER → 2024-11-12 10:54 | Outpatient (BNVA) | payer MEDICARE, SELFPAY | PROVIDERS: PCP Internal Medicine; Visit Provider Urology | DX: N95.2 Postmenopausal atrophic vaginitis (principal); N20.0 Calculus of kidney; R30.0 Dysuria; R33.9 Retention of urine, unspecified; R39.9 Unspecified symptoms and signs involving the genitourinary system | CPT/HCPCS: 52000; 81003 ==

== ENCOUNTER → 2024-11-21 23:59 | Outpatient (BNV) | payer MEDICARE, SELFPAY ==
--- NOTE | 2024-11-26 13:39 | MHC.OFFVIS ---
Intake Visit Reasons: Remote Device Check- Medtronic Allergies Penicillins Allergy (Intermediate, Verified 11/12/24 11:20) RASH PFSH Medical History Osteoporosis (~2007) Tubular adenoma of colon (~2019) Post-menopausal Left arm swelling Swelling of lymph node Cardiac pacemaker in situ (~2018) Sick sinus syndrome Insomnia Degenerative joint disease Nocturnal leg cramps Dementia without behavioral disturbance GERD (gastroesophageal reflux disease) Constipation Vitamin D deficiency Neuropathy Vitamin B12 deficiency Epilepsy (~1998) Anemia Sinus bradycardia Pure hypercholesterolemia Diabetes mellitus Surgical History History of endoscopy History of ankle surgery (~2011) History of partial gastrectomy History of colonoscopy History of pacemaker (~2018) History of hysterectomy Family History Father Medical history unknown Mother No problems noted. Daughter No problems noted. Son No problems noted. 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 Pacemaker function is adequate. Few episodes of high ventricular rate noted, by EGM appear to be SVT [id number] Cardiac Device Interrogation, pacemaker Procedure code (CPT) selection complete Assessment & Plan Assessment & Plan (1) Cardiac pacemaker in situ: Onset Date: ~2018 Comment: (Medtronic DCPP - placed 12/2018 - pocket revision 10/2021) Code(s): Z95.0 - Presence of cardiac pacemaker Category: Medical Plan: See above Coding Level of Care Code Procedure Only Diagnoses Cardiac pacemaker in situ Z95.0 CPT Codes Cardiac Device Check - Cardiac Device 12: [id number] Cardiac Device Interrogation, pacemaker ([id number])
== END ==
PROVIDERS: PCP Internal Medicine; Visit Provider Internal Medicine Cardiovascular Disease
DX: I47.10 Supraventricular tachycardia, unspecified (principal); Z95.0 Presence of cardiac pacemaker
CPT/HCPCS: 93294

== ENCOUNTER 2024-12-20 12:13 | Outpatient (AMB) | payer MEDICARE, SELFPAY ==
[2024-12-20 12:31] VITALS: BP 132/70; PULSE 83; O2SAT 99; BMI 20.3
--- NOTE | 2024-12-20 12:31 | A.OFFPC_ITS ---
Vital Signs 12/20/24 12:31 Height 4 ft 8 in Weight 90 lb 8 oz BMI 20.3 BP 132/70 Blood Pressure Location Lt brachial Position Sitting Pulse 83 Pulse Source Pulse Oximeter Pulse Oximetry (%) 99 Oxygen Delivery Method Room Air Intake Visit Reasons: numbness on both legs/fall Applications Programmer Required: No Accompanied by: Self / Same As Patient Allergies Penicillins Allergy (Intermediate, Verified 12/20/24 12:43) RASH Medication List - Last Reconciled 12/20/24 by Cuate Oscar MD acetaminophen 500 mg PO Q6H PRN alendronate 70 mg PO MO atorvastatin 40 mg PO BEDTIME 90 days benzonatate 100 mg PO TID PRN bisacodyl (Dulcolax (bisacodyl)) 10 mg (2 x 5 mg) PO BEDTIME PRN 30 days cholecalciferol (vitamin D3) (Vitamin D3) 50 mcg PO BID [COMPRESSION STOCKINGS - knee-high (medium compression) As directed] cyanocobalamin (vitamin B-12) 1,000 mcg PO DAILY docusate sodium 100 mg PO BID PRN donepezil 5 mg PO BEDTIME doxycycline hyclate 100 mg PO BID 5 days estradiol 0.01%(0.1mg/gram) (Estrace) apply a pea sized amount to fingertip and appy cream vaginally at bedtime vaginally daily; ferrous sulfate 325 mg PO DAILY 90 days gabapentin 300 mg PO BID hydrocortisone 2.5% 1 appl [place] Q8-12H latanoprost 0.005% 1 drp ophthalmic (eye) BEDTIME levetiracetam 500 mg PO BID meclizine 12.5 mg PO TID PRN metformin 500 mg PO BID 90 days nut.tx.gluc.intol,lac-free,soy (Glucerna Therapeutic Nutrition oral liquid) 1 can orally 3 times a day with meals; 30 days omeprazole 20 mg PO DAILY sennosides (senna) 17.2 mg (2 x 8.6 mg) PO BID PRN 90 days Tobacco use date assessed: 12/20/24 Fall risk assessment: 2 + Falls in past year Last assessed Fall Risk: 12/20/24 Dental Screening Dental Screen Date: 12/20/24 Did you have a dental visit in the last 12 months?: No Did you have a dental problem in the last 6 months where you did not have access to dental care?: No Was dental information given to patient?: No HPI numbness on both legs/fall HPI Details Patient comes in today or follow-up/further evaluation of her recurrent dizziness Her son states that patient has been falling frequently at home and as recently as last week and they were advised by visiting nurses to bring her in for further evaluation of her frequent falls before she gets seriously hurt Patient states that her legs feel weak often and she gets dizzy on and off frequently She had a head CT done back in April 2024 that came back negative She also had EMG and NCV done back in February 2023 that revealed (+) 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 EMG of the right L4-S1 innervated muscles are consistent with minimal chronic neuropathic changes in the EDB muscle Patient has been referred to Neurology for further evaluation of her unsteadiness and recurrent dizziness and she has an appointment scheduled to be seen by Dr. Barber later this month on 01/09/2025 Patient denies any headache Denies any chest pains, no increased shortness of breath No nausea/vomiting, no abdominal pain No change in bowel habits noted [facility] Medical History Osteoporosis (~2007) Tubular adenoma of colon (~2019) Post-menopausal Left arm swelling Swelling of lymph node Cardiac pacemaker in situ (~2018) Sick sinus syndrome Insomnia Degenerative joint disease Nocturnal leg cramps Dementia without behavioral disturbance GERD (gastroesophageal reflux disease) Constipation Vitamin D deficiency Neuropathy Vitamin B12 deficiency Epilepsy (~1998) Anemia Sinus bradycardia Pure hypercholesterolemia Diabetes mellitus Surgical History History of endoscopy History of ankle surgery (~2011) History of partial gastrectomy History of colonoscopy History of pacemaker (~2018) History of hysterectomy Family History Father Medical history unknown Mother No problems noted. Daughter No problems noted. Son No problems noted. 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 1. Little interest or pleasure in doing things: more than half the days 2. Feeling down, depressed, or hopeless: several days 3. Trouble falling or staying asleep, or sleeping too much: several days 4. Feeling tired or having little energy: nearly every day 5. Poor appetite or overeating: nearly every day 6. Feeling bad about yourself - or that you are a failure or have let yourself or your family down: not at all 7. Trouble concentrating on things, such as reading the newspaper or watching television: nearly every day 8. Moving or speaking so slowly that other people could have noticed. Or the opposite - being so fidgety or restless that you have been moving around a lot more than usual: nearly every day 9. Thoughts that you would be better off or of hurting yourself in some way: more than half the days Total score: 18 Depression Screening Interpretation: Positive Depression Screening Follow-up: Follow-up Visit Requested Depression Screening Done: Yes 96305 - PHQ-9 Billing: Yes Source: Developed by Drs. Yash Harris, Noemi Kaur, Alexander Parnell and colleagues, with an educational brittany from [employer]. Thrive Questionnaire Date Thrive assessed: 12/20/24 I am a: Patient What is your living situation today?: I have a steady place to live Within the past 12 months, did the food you bought not last and you didn't have the money to get more?: Never true Within the past 12 months, did you worry whether your food would run out before you got money to buy more?: Never true Do you have trouble paying for medicines?: No Do you have trouble getting transportation to medical appointments?: No Do you have trouble paying your heating and electricity bill?: No Do you have trouble taking care of your child, family member or friend?: No Do you have trouble with day-to-day activities such as bathing, preparing meals, shopping, managing finances, etc.?: No Are you currently unemployed and looking for a job?: No Are you interested in more education?: No Please select the resources that you would like help with: None Currently or been in a relationship where the following occur: No concerns reported THRIVE Score: 0 AUDIT C Alcohol Use Questionnaire (AUDIT-C) 1. How often do you have a drink containing alcohol?: Never 3. How often do you have six or more drinks on one occasion?: Never Total Score: 0 Score Reviewed/Action Taken: Yes SHER-7 AMB Questionnaire SHER-7 Date SHER - 7 assessed: 12/20/24 Feeling nervous, anxious, or on edge: 3 = Nearly every day Not being able to stop or control worryin = Nearly every day Worrying too much about different things: 3 = Nearly every day Trouble relaxin = Nearly every day Being so restless that it is hard to sit still: 1 = Several days Becoming easily annoyed or irritable: 3 = Nearly every day Feeling afraid as if something awful might happen: 3 = Nearly every day Total SHER-7 score (0-4 normal; 5-9 mild; 10-14 moderate; 15-21 severe): 19 Source: Developed by Drs. Yash Harris, Noemi Kaur, Alexander Parnell and colleagues, with an educational brittany from [employer]. Review of Systems Const Denies chills, Reports fatigue, Denies fever(s) and Denies headache(s) ENT Denies dysphagia, Reports dizziness (frequent), Denies otalgia, Denies headache(s), Denies neck pain, Denies odynophagia and Denies sore throat Card Denies chest pain, Denies palpitations and Denies dyspnea Resp Denies chest congestion, Denies cough and Denies dyspnea GI Denies abdominal pain, Reports constipation, Denies dysphagia, Denies heartburn, Denies diarrhea, Denies nausea, Denies odynophagia and Denies vomiting Denies difficulty voiding, Denies nocturia, Denies dysuria and Denies urinary urgency Musc Reports abnormal gait (unsteady; falling frequently lately), Denies back pain and Denies neck pain Skin/Breast Denies rash Neuro Reports abnormal gait (unsteady; falling frequently lately), Reports dizziness (frequent), Denies headache(s) and Reports radicular pain (improved on Gabapentin) Endo Reports fatigue and Denies palpitations Physical exam (Primary Care) Vital Signs: Last Vital Signs Pulse 83 12/20/24 12:31 BP 132/70 12/20/24 12:31 Pulse Ox 99 12/20/24 12:31 Oxygen Delivery Method Room Air 12/20/24 12:31 BMI result Body Mass Index 20.3 Tobacco/Smoking Status: Tobacco use Status Tobacco use date assessed 12/20/24 12/20/24 12:38 Patient Tobacco Use Status Former Tobacco user 12/20/24 12:38 Tobacco use type Cigarette 12/20/24 12:38 e-Cigarette/Vaping Use Never Used 12/20/24 12:38 PHQ-9: PHQ-9 Score PHQ-9: Total score 18 12/22/24 08:21 Depression Screening Interpretation: Positive Depression Screening Follow-up: Follow-up Visit Requested Thrive Assessment: Date of Thrive Assessment Date Thrive assessed 12/20/24 12/20/24 12:38 Currently or been in a relationship where the following occur: No concerns re ported Const General: no acute distress and alert HENMT Ears: TM's normal bilaterally and EAC's normal Throat: Yes posterior oropharynx normal and Yes tonsils normal (no TP congestion) Neck Neck: Yes supple and No lymphadenopathy Thyroid: Thyroid normal Resp Auscultation: clear to auscultation bilaterally, no rales and no wheezes Cardio Rate: regular rate Rhythm: regular rhythm Heart sounds: no murmurs GI Palpation (GI): Soft to palpation and nontender Auscultation: normal bowel sounds General: Yes no CVA tenderness Back/Spine/Pelvis Back: no CVA tenderness Thoracic/Lumbar Spine: No lumbar spinal tenderness Skin Rashes: no rashes Extrem General: No clubbing, No cyanosis and Yes edema (1+ bipedal edema) Left upper extremity: shoulder/upper arm Details: tenderness (mild) Location: of the A-C joint; no swelling Right lower extremity: normal to inspection Left lower extremity: normal to inspection Coding Level of Care Code Est Pt Level 4 (96586) Diagnoses Recurrent vertigo R42 Bilateral leg weakness R29.898 Frequent falls R29.6 Additional Codes PHQ-9 - 56363 - PHQ-9 Billing: Yes ([id number]) Assessment & Plan Assessment & Plan (1) Recurrent vertigo: Code(s): R42 - Dizziness and giddiness Category: Medical (2) Bilateral leg weakness: Code(s): R29.898 - Other symptoms and signs involving the musculoskeletal system Category: Medical (3) Frequent falls: Code(s): R29.6 - Repeated falls Category: Medical Plan Will send patient for echocardiogram for further evaluation Will also refer her to physical therapy for further evaluation and management Have reminded patient's son to make sure they keep patient's appointment with Dr Leroy Barber later this month Follow up as scheduled in February 2025 Orders: Orders CA echo transthoracic complete 12/20/24 I49.5 - Sick sinus syndrome, R42 - Dizziness and giddiness PT Evaluation and Treatment 12/20/24 R29.6 - Repeated falls, R29.898 - Other symptoms and signs involving the musculoskeletal system, R42 - Dizziness and giddiness
--- OUTSIDE RECORDS SUMMARY | 2024-12-20 12:54 | XMS_ITS | Clinical Summary ---
Author Organization [facility] Address [address] [place] [address] Care Team Providers Care Rug Sizer Name Role Phone Unavailable Primary Care Provider Unavailabl e Social History Tobacco Use Types Packs/Day Years Used Date Smoking Tobacco: Never Assessed Comments Unknown Sex and Gender Information Value Date Recorded Sex Assigned at Not on file Legal Sex Female 5:51 PM EDT Gender Identity Not on file Sexual Orientation [...]
--- OUTSIDE RECORDS SUMMARY | 2024-12-20 12:54 | XMS_ITS | Clinical Summary ---
Author Organization [facility] [address] [place] [address] [place] [phone] Phone Care Team Providers Care Biology Teacher Name Role Phone Cuate Oscar MD Primary Care Provider + [phone] Allergies Active Allergy Reactions Criticality Noted Date [...] daily. Active alendronate (FOSAMAX) 70 mg tablet TAKE 1 TABLET BY MOUTH EVERY 7 DAYS 12 tablet 1 11/13/2024 Active Active Problems Problem Noted Date Diagnosed Date Hyperparathyroidism ([facility]/HCC V24) 01/02/2024 Age-related osteoporosis wit hout current pathological [...] 11:00 AM EDT Office Visit Endocrinology - [place] [address] [place] [phone] Marta Milian PA [address] [place] [address] Health Maintenance Due Date Last Done Comments Pneumococcal Vaccine: 50+ Years (1 of 1 - PCV) 1991 Zoster Vaccines (1 of 2) 1991 Depression Screening 07/24/2022 Falls Risk Assessment 07/24/2022 Medicare Annual Wellness Visit 07/24/2022 Osteoporosis Screening (Bone Density Screening) 07/24/2022 Social Influencers of Health Screening 07/24/2022 COVID-19 Vaccine (4 - 2023-2 5 season) 2024 06/27/2024, 07/09/2021, 01/01/2021 DTaP,Tdap,and Td Vaccines (2 - Td or Tdap) 03/11/2031 03/11/2021 Influenza Vaccine Completed 06/27/2024, 06/03/2022 RSV Immunization Adult Patients Completed 06/27/2024 HIB Vaccines Aged Out No [...] age to complete this topic Meningococcal B Vaccine Aged Out No l onger eligible based on patient's age to complete this topic RSV Immunization Patients Under 20 months Aged Out No longer eligible b ased on patient's age to complete this topic Varicella Vaccines Aged Out No longer eligible based on patient's age to complete this topic Insurance MEDICARE Care Teams Biology Teacher Relationship Specialty Start Date End Date Cuate Oscar MD [address] [place] [address] Aide [address] Grimaldo PCP - General Internal Medicine 11/11/21
== END 2024-12-20 13:00 | disposition home or self-care (01) ==
LOC: HO.HMCH 12:14
PROVIDERS: PCP Internal Medicine; Visit Provider Internal Medicine
DX: R42 Dizziness and giddiness (principal); R29.898 Other symptoms and signs involving the musculoskeletal system; R29.6 Repeated falls

== ENCOUNTER → 2024-12-20 12:13 | Outpatient (BNVA) | payer MEDICARE, SELFPAY | PROVIDERS: PCP Internal Medicine; Visit Provider Internal Medicine | DX: R42 Dizziness and giddiness (principal); R29.898 Other symptoms and signs involving the musculoskeletal system; R29.6 Repeated falls | CPT/HCPCS: 96127; 99212 ==

== ENCOUNTER → 2025-01-16 14:03 | Outpatient (REF) | payer MEDICARE, SELFPAY ==
--- NOTE | 2025-01-16 14:06 | CA_ITS ---
Transthoracic Echocardiogram Patient (Last, First, Middle): Natividad Fenton, Gender: Female Date of : 1940 Age: 84 Procedure Date: 01/16/2025 Procedure Type: Transthoracic Echocardiogram Location: OP Height: 142.24 cm Weight: 40.82 kg BSA: 1.26 m2 Heart Rate: 61 bpm BP: 110 / 60 mmHg Web Development Consultant: TO Referring MD: Cuate Oscar MD Installation Technician: Everett Lay MD Symptoms: I49.5 - Sick sinus syndrome Study Quality: Fair ECG Rhythm: Sinus Conclusions: - 1. Normal LV ejection fraction 55-60% with restrictive filling pattern 2. Cardiac valvular Dopplers within normal limits 3. Upper limits of normal RV systolic pressure 4. No gross pericardial effusion Findings Procedure Information The study quality is limited by the patients inability to tolerate the test. Left Ventricle Normal left ventricular cavity size. There is normal left ventricular wall thickness. The left ventricular systolic function is normal. The visually estimated ejection fraction is between 55-60%. Spectral Doppler is indicative of a restrictive filling pattern. Wall Motion Rest Echo Findings The basal inferior, basal inferoseptal, and basal inferolateral segments are hypokinetic. The basal anterolateral segment is not visualized. All other scored wall segments showed normal motion. Right Ventricle Normal right ventricular cavity size and systolic function. Atria The left atrium is mildly dilated. Interatrial shunt cannot be excluded. The right atrium is likely dilated. Aortic Valve The aortic valve structure and function is likely normal. There is no aortic valve stenosis. There is no aortic valve regurgitation. Mitral Valve There is mild anterior and posterior mitral leaflet thickening. There is trace mitral valve regurgitation. There is no mitral valve stenosis. Pulmonic Valve The pulmonic valve was not well visualized. Tricuspid Valve There is mild tricuspid valve regurgitation. Normal right atrial pressure. Great Vessels The aorta was not well visualized. The pulmonary artery was not well visualized. There is no dilatation of the ascending aorta measuring 3.10 cm. Venous The inferior vena cava is normal in size. Pericardium/Pleural There is no evidence of pericardial effusion. Prior Study Comparison Changes noted compared to prior study dated: 10/17/2017. LV diastolic filling appears to be restrictive Measurements 2D Linear Measurements IVSd: 0.92 0.6-0.9/0.6-1.0 cm LVIDd: 3.45 3.9-5.3/4.2-5.9 cm LVIDd Index: 2.74 2.4-3.2/2.2-3.1 cm/m2 LVIDs: 2.48 2.0-3.6 cm LVPWd: 0.76 0.7-1.1 cm LA Diam: 2.90 2.7-3.8/3.0-4.0 cm LAIDs Index: 2.30 1.5-2.3 cm/m2 LV Mass: 97.45 67-162/88-224 g LV Mass Index: 77.34 43-95/49-115 g/m2 LVOT Diam: 1.90 3.0+(-)1.3 cm 2D Systolic Function EF 4C: 53.00 >55% Mitral Valve MV Pk E: 0.80 MV PK A: 0.23 MV Decel Time: 201.00 E/A: 3.50 E'Lateral: 7.94 E'Medial: 7.62 E/E' Med: 10.50 E/E' Lat: 10.10 PHT: 59.00 MVA PHT: 3.73 Decel Jerome: 3.98 Aortic Valve AoV Pk Jeet: 0.93 AoV Mn Jeet: 0.68 AoV VTI: 0.22 AoV Pk Grad: 3.00 Aov Mn Grad: 2.00 RUPA Cont.VTI: 1.85 LVOT LVOT Pk Jeet: 0.63 LVOT Mn Jeet: 0.42 LVOT VTI: 0.15 LVOT Pk Grad: 2.00 LVOT Mn Grad: 1.00 LVOT Diam: 1.90 LVOT Area: 2.84 Diastolic Function MV Pk E: 0.80 MV Pk A: 0.23 E/A: 3.50 E'Medial: 7.62 E/E' Med: 10.50 E' Laterial: 7.94 E/E' Lat: 10.10 Right Ventricle TAPSE (mm): 21.30 TVS' Jeet: 10.00 Tricuspid Valve TR Pk Jeet: 2.86 TR Pk Grad: 33.00 RA Press: 3.00 RVSP: 36.00 Great Vessels Aorta Sinus of Valsalva: 2.76 2.0-3.5 cm Ao Asc: 3.10 2.1-3.4 cm Updated in Other Vendor System with Status of Final Everett Lay MD electronically signed on 01/17/2025 11:24:20 AM with status of Final
--- OUTSIDE RECORDS SUMMARY | 2025-01-16 14:13 | XMS_ITS | Clinical Summary ---
Author Organization [facility] Address [address] [place] [address] Care Team Providers Care Clock And Watch Hands Dipper Name Role Phone Unavailable Primary Care Provider [...]
== END ==
LOC: HO.CARD 14:03
PROVIDERS: PCP Internal Medicine; Visit Provider Internal Medicine
DX: I49.5 Sick sinus syndrome (principal); R42 Dizziness and giddiness
CPT/HCPCS: 93306

== ENCOUNTER → 2025-01-16 14:06 | Outpatient (BNV) | payer MEDICARE, SELFPAY | PROVIDERS: PCP Internal Medicine; Visit Provider Internal Medicine Cardiovascular Disease | DX: I51.7 Cardiomegaly (principal); I36.1 Nonrheumatic tricuspid (valve) insufficiency | CPT/HCPCS: 93306 ==

== ENCOUNTER 2025-02-06 22:10 | Emergency (ER) | payer MEDICARE, SELFPAY ==
--- NOTE | 2025-02-06 | ECG_ITS ---
Test Reason : CP Blood Pressure : */* mmHG Vent. Rate : 63 BPM Atrial Rate : * BPM P-R Int : * ms QRS Dur : 70 ms QT Int : 370 ms P-R-T Axes : * 48 39 degrees QTcB Int : 378 ms Atrial-paced rhythm Abnormal ECG When compared with ECG of 26-Jun-2024 15:38, Atrial paced rhythm present Referred By: Generic ED Physician Electronically Signed By: Madhu Savage
--- NOTE | ~2025-02-06 | XR_ITS ---
CLINICAL HISTORY: cp 1 view chest x-ray Comparison: CR - XR CHEST 1V - 10/02/24 21:40 EST Findings: No consolidation or effusion. Similar prominent/enlarged cardiac silhouette. No acute fracture. Similar position of the left pectoral dual lead chamber pacemaker. Scattered clips in the epigastric region redemonstrated. IMPRESSION: 1. No acute findings. This document has been electronically signed by: Howie Molina MD on 02/07/2025 00:47:41
[2025-02-06 22:16] VITALS: BP 120/75; BP 137/58; PULSE 61; PULSE 80; RESP 16; TEMP 36.4; O2SAT 98; O2SAT 99; BMI 19.6
--- NOTE | 2025-02-06 22:26 | MHC.EDTECH ---
pt came in, changed into hospital gown, placed on telemetry monitor, EKG and vitals obtained
[2025-02-06 22:42] LABS: MANUAL DIFF FLAG NO
[2025-02-06 22:43] LABS: Basophils Percent Auto 0.7 % (0-2); Eosinophils Absolute Auto 0.1 X10*3/uL (0.0-0.4); Eosinophils Percent Auto 2.1 % (0-4); Hematocrit 33.1 % (37.0-47.0); Hemoglobin 10.8 g/dl (12.0-16.0); Imm Gran Abs Auto 0.02 X10*3/uL (0.00-0.03); Imm Gran Pct Auto 0.5 % (0.0-0.4); Lymphocytes Absolute Auto 2.3 X10*3/uL (1.2-4.9); Lymphocytes Percent Auto 54.8 % (20-40); Mean Corpuscular HGB Conc 32.6 g/dl (31.0-35.0); Mean Corpuscular Hemoglobin 30.7 pg (27.0-33.0); Mean Platelet Volume 11.2 fL (9.4-12.3); Monocytes Absolute Auto 0.4 X10*3/uL (0.1-1.2); Monocytes Percent Auto 10.3 % (2-11); Neutrophils Absolute Auto 1.4 x10*3/uL (2.0-8.3); Neutrophils Percent Auto 31.6 % (45-73); Platelet Count 222 X10*3/uL (160-400); Red Blood Count 3.52 X10*6/uL (4.20-5.50); Red Cell Distribution Width 14.1 % (11.0-16.0); White Blood Count 4.3 X10*3/uL (4.8-10.8)
[2025-02-06 23:03] LABS: Alanine Aminotransferase 40 U/L (0-31); Albumin Level 3.9 g/dL (3.5-5.0); Alkaline Phosphatase 75 U/L (39-117); Anion Gap 10 (12-20); Aspartate Amino Transferase 33 U/L (5-31); Bilirubin Total 0.4 mg/dL (0.0-1.0); Blood Urea Nitrogen 20 mg/dL (9-16); Calcium 9.4 mg/dL (8.4-10.2); Carbon Dioxide 25 mmol/L (22-29); Chloride 113 mmol/L (96-108); Creatinine Clr Calc Pharmacy 25.9; Estimated Glomerular Filt Rate 53; Glucose Random 135 mg/dL (60-115); Magnesium 1.7 mg/dL (1.6-2.6); Potassium 4.5 mmol/L (3.3-5.1); Sodium 143 mmol/L (135-145); Total Protein 6.7 g/dL (6.5-8.0)
--- NOTE | 2025-02-06 23:25 | ED.CHESTPAIN ---
HPI - Chest Pain General Chief Complaint: Chest Pain Stated Complaint: chest pain around pacemaker Time Seen by Provider: 02/06/25 22:49 Source: patient Mode of arrival: ambulatory Limitations: no limitations History of Present Illness ED Provider: HPI narrative: Patient is status post pacemaker placement last year complaining of pain at the site of pacemaker for last 2 weeks getting worse for last 1 week no shortness a breath no skin discoloration no fever no chills Related Data Home Medications ?Medication ?Instructions ?Recorded ?Confirmed latanoprost 0.005 % eye drops 1 drp ophthalmic (eye) BEDTIME 12/30/21 12/31/24 alendronate 70 mg tablet 70 mg PO MO 09/15/23 12/31/24 donepezil 5 mg tablet 5 mg PO BEDTIME 06/06/24 12/31/24 levetiracetam 500 mg tablet 500 mg PO BID 06/06/24 12/31/24 gabapentin 300 mg capsule 300 mg PO BID 07/03/24 12/31/24 Previous Rx's ?Medication ?Instructions ?Recorded bisacodyl 5 mg tablet,delayed 10 mg (2 x 5 mg) PO BEDTIME PRN 07/06/23 release (Dulcolax (bisacodyl)) constipation 30 days #10 tabs sennosides 8.6 mg tablet (senna) 17.2 mg (2 x 8.6 mg) PO BID PRN 11/06/23 Constipation 90 days #360 tabs hydrocortisone 2.5 % topical cream 1 appl ND Q8-12H #30 grams 05/08/24 with perineal applicator nut.tx.gluc.intol,lac-free,soy See Rx Instructions .Route 05/24/24 (Glucerna Therapeutic Nutrition .COMPLEX 30 days #90 multiple units oral liquid) atorvastatin 40 mg tablet 40 mg PO BEDTIME 90 days #90 tabs 07/03/24 COMPRESSION STOCKINGS - knee-high #2 ea 07/05/24 (medium compression) ferrous sulfate 325 mg (65 mg 325 mg PO DAILY 90 days #90 tabs 08/06/24 iron) tablet meclizine 12.5 mg tablet 12.5 mg PO TID PRN dizziness #90 08/19/24 tabs benzonatate 100 mg capsule 100 mg PO TID PRN cough #14 caps 10/03/24 acetaminophen 500 mg capsule 500 mg PO Q6H PRN fever or pain 10/10/24 #30 caps doxycycline hyclate 100 mg tablet 100 mg PO BID 5 days #10 tabs 11/12/24 estradiol 0.01% (0.1 mg/gram) See Rx Instructions vaginal DAILY 11/12/24 vaginal cream (Estrace) #42.5 grams omeprazole 20 mg capsule,delayed 20 mg PO DAILY #90 caps 11/19/24 release cyanocobalamin (vitamin B-12) 1,000 mcg PO DAILY #90 caps 12/18/24 1,000 mcg capsule cholecalciferol (vitamin D3) 50 50 mcg PO BID #60 tabs 01/27/25 mcg (2,000 unit) tablet (Vitamin D3) docusate sodium 100 mg capsule 100 mg PO BID PRN for constipation 01/27/25 #90 caps metformin 500 mg tablet 500 mg PO BID 90 days #180 tabs 01/28/25 Allergies Allergy/AdvReac Type Severity Reaction Status Date / Time Penicillins Allergy Intermediate RASH Verified 02/06/25 22:24 Review of Systems Review of Systems: Yes all other systems are reviewed and are negative [facility] Past Medical History Medical History Osteoporosis (~2007) Tubular adenoma of colon (~2019) Post-menopausal Left arm swelling Swelling of lymph node Cardiac pacemaker in situ (~2018) Sick sinus syndrome Insomnia Degenerative joint disease Nocturnal leg cramps Dementia without behavioral disturbance GERD (gastroesophageal reflux disease) Constipation Vitamin D deficiency Neuropathy Vitamin B12 deficiency Epilepsy (~1998) Anemia Sinus bradycardia Pure hypercholesterolemia Diabetes mellitus Surgical History History of endoscopy History of ankle surgery (~2011) History of partial gastrectomy History of colonoscopy History of pacemaker (~2018) History of hysterectomy Family History Family History Father Medical history unknown Mother No problems noted. Daughter No problems noted. Son No problems noted. 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 Oriented X3. No acute distress. Eyes: PERRLA, No Nystagmus ENT: Pharynx normal. Oral Mucosa moist Neck: Normal inspection. Neck supple. CVS: Normal heart rate and rhythm. Pulses normal. Tenderness at the site of pacemaker no signs of infection Respiratory: No respiratory distress. Equal air entry bilateral, no wheezing/rales/rhonchi Abdomen: Soft and nontender. Bowel sounds are present, no mass palpable, no CVA tenderness Skin: Skin warm and dry. Normal skin color. Normal skin turgor. Extremities: No lower extremity edema. No calf tenderness Neuro: Oriented X 3. No motor deficit. No sensory deficit.No cerebellar signs , cranial nerves II-XII intact Medical Decision Making Medical Decision Making MDM Narrative: Patient with pain in the left chest at the site of the pacemaker for last 2 weeks cardiac workup is negative for acute patient has been sleeping since she came in the ER without any distress advised to take Tylenol for the pain Differential Diagnosis Differential Diagnoses: The differential diagnosis associated with the presentation includes Pacemaker syndrome/chest wall pain/ACS Lab Data [facility] Lab Attestation statement: I reviewed the patient's lab results. 02/06/25 22:36 02/06/25 22:36 Labs: Lab Results 02/06/25 Range/Units 22:36 WBC 4.3 L (4.8-10.8) X10*3/uL RBC 3.52 L (4.20-5.50) X10*6/uL Hgb 10.8 L (12.0-16.0) g/dl Hct 33.1 L (37.0-47.0) % MCV 94.0 (80.0-98.0) fL MCH 30.7 (27.0-33.0) pg MCHC 32.6 (31.0-35.0) g/dl RDW 14.1 (11.0-16.0) % Plt Count 222 (160-400) X10*3/uL MPV 11.2 (9.4-12.3) fL Immature Gran % (Auto) 0.5 H (0.0-0.4) % Neut % (Auto) 31.6 L (45-73) % Lymph % (Auto) 54.8 H (20-40) % [place] % (Auto) 10.3 (2-11) % Eos % (Auto) 2.1 (0-4) % Baso % (Auto) 0.7 (0-2) % Lymph # (Auto) 2.3 (1.2-4.9) X10*3/uL [place] # (Auto) 0.4 (0.1-1.2) X10*3/uL Eos # (Auto) 0.1 (0.0-0.4) X10*3/uL Baso # (Auto) 0.0 (0.0-0.2) X10*3/uL Abs Immat Gran (auto) 0.02 (0.00-0.03) X10*3/uL Absolute Neuts (auto) 1.4 L (2.0-8.3) x10*3/uL Absolute Nucleated RBC 0.000 (0.0-0.012) X10*3/uL Nucleated RBC % (auto) 0.0 (0.0-0.2) /100WBC Sodium 143 (135-145) mmol/L Potassium 4.5 (3.3-5.1) mmol/L Chloride 113 H (96-108) mmol/L Carbon Dioxide 25 (22-29) mmol/L Anion Gap 10 L (12-20) BUN 20 H (9-16) mg/dL Creatinine 1.00 (0.5-1.4) mg/dL Estim Creat Clear Calc 25.9 Estimated GFR 53 Random Glucose 135 H (60-115) mg/dL Calcium 9.4 (8.4-10.2) mg/dL Magnesium 1.7 (1.6-2.6) mg/dL Total Bilirubin 0.4 (0.0-1.0) mg/dL AST 33 H (5-31) U/L ALT 40 H (0-31) U/L Alkaline Phosphatase 75 (39-117) U/L Troponin I High Sens 5.0 (<3.5-17.0) ng/L Total Protein 6.7 (6.5-8.0) g/dL Albumin 3.9 (3.5-5.0) g/dL Independent Interpretation I performed an independent interpretation of an: EKG Interpretation: Sinus rhythm heart rate 63 beats per minute normal intervals normal axis no acute ST-T changes no acute ischemia Radiology Impression Discussion of test interpretation with radiology: I have reviewed the radiologist's reading. Discharge Plan Discharge Clinical Impression: Chest pain Qualifiers: Chest pain type: precordial pain Qualified Code(s): R07.2 - Precordial pain Patient Disposition: Home, Self-Care Instructions: Chest Wall Pain (ED) Additional Instructions: Your pain the chest is from the pacemaker placement Take Tylenol for the pain Follow with your PCP/utility worker Prescriptions: No Action sennosides [senna] 8.6 mg tablet 17.2 mg PO BID PRN (Reason: Constipation) 90 Days Qty: 360 1RF hydrocortisone 2.5 % cream with perineal applicator 1 appl ND Q8-12H Qty: 30 2RF Glucerna Therapeutic Nutrition Liquid See Rx Instructions .ROUTE .COMPLEX 30 Days Qty: 90 5RF Rx Instructions: 1 can orally 3 times a day with meals; atorvastatin 40 mg tablet 40 mg PO BEDTIME 90 Days Qty: 90 1RF ferrous sulfate 325 mg (65 mg iron) tablet 325 mg PO DAILY 90 Days Qty: 90 1RF meclizine 12.5 mg tablet 12.5 mg PO TID PRN (Reason: dizziness) Qty: 90 0RF omeprazole 20 mg capsule,delayed release(DR/EC) 20 mg PO DAILY Qty: 90 1RF cyanocobalamin (vitamin B-12) 1,000 mcg capsule 1,000 mcg PO DAILY Qty: 90 1RF docusate sodium 100 mg capsule 100 mg PO BID PRN (Reason: for constipation) Qty: 90 1RF cholecalciferol (vitamin D3) [Vitamin D3] 50 mcg (2,000 unit) tablet 50 mcg PO BID Qty: 60 1RF metformin 500 mg tablet 500 mg PO BID 90 Days Qty: 180 3RF acetaminophen 500 mg capsule 500 mg PO Q6H PRN (Reason: fever or pain) Qty: 30 0RF benzonatate 100 mg capsule 100 mg PO TID PRN (Reason: cough) Qty: 14 0RF alendronate 70 mg tablet 70 mg PO MO latanoprost 0.005 % drops 1 drp ophthalmic (eye) BEDTIME bisacodyl [Dulcolax (bisacodyl)] 5 mg tablet,delayed release (DR/EC) 10 mg PO BEDTIME PRN (Reason: constipation) 30 Days Qty: 10 1RF Rx Instructions: to use if no bowel movement for 2-3 days gabapentin 300 mg capsule 300 mg PO BID donepezil 5 mg tablet 5 mg PO BEDTIME levetiracetam 500 mg tablet 500 mg PO BID (DME) COMPRESSION STOCKINGS - knee-high (medium compression) small See Rx Instructions .Route .MEDSUPPLY Qty: 2 0RF Rx Instructions: As directed doxycycline hyclate 100 mg tablet 100 mg PO BID 5 Days Qty: 10 0RF estradiol [Estrace] 0.01 % (0.1 mg/gram) cream See Rx Instructions vaginal DAILY Qty: 42.5 2RF Rx Instructions: apply a pea sized amount to fingertip and appy cream vaginally at bedtime vaginally daily; Print Language: Portuguese
[2025-02-07 00:07] VITALS: BP 128/53; PULSE 60; RESP 15; TEMP 36.4; O2SAT 99
[2025-02-07 00:58] VITALS: BP 128/53; PULSE 60; RESP 15; TEMP 36.4; O2SAT 99
== END 2025-02-07 02:08 | disposition home or self-care (01) ==
PROVIDERS: Emergency Provider Internal Medicine
DX: R07.89 Other chest pain (principal); Z95.0 Presence of cardiac pacemaker; Z79.899 Other long term (current) drug therapy; Z87.891 Personal history of nicotine dependence
CPT/HCPCS: 36415; 71045; 80053; 83735; 84484; 85025; 93005; 99283; 99285

== ENCOUNTER → 2025-02-06 22:15 | Outpatient (BNV) | payer MEDICARE, SELFPAY | PROVIDERS: Emergency Provider Internal Medicine; Visit Provider Internal Medicine Cardiovascular Disease | DX: R94.31 Abnormal electrocardiogram [ECG] [EKG] (principal); R07.9 Chest pain, unspecified | CPT/HCPCS: 93010 ==

== ENCOUNTER → 2025-02-06 22:27 | Outpatient (BNV) | payer MEDICARE, SELFPAY | PROVIDERS: Emergency Provider Internal Medicine; Visit Provider Radiology Diagnostic Radiology | DX: R07.9 Chest pain, unspecified (principal) | CPT/HCPCS: 71045 ==

== ENCOUNTER → 2025-02-21 23:59 | Outpatient (BNV) | payer MEDICARE, SELFPAY ==
--- NOTE | 2025-02-27 13:32 | MHC.OFFVIS ---
Intake Visit Reasons: Remote Device Check- [employer] Allergies Penicillins Allergy (Intermediate, Verified 02/27/25 11:33) RASH PFSH Medical History Osteoporosis (~2007) Tubular adenoma of colon (~2019) Post-menopausal Left arm swelling Swelling of lymph node Cardiac pacemaker in situ (~2018) Sick sinus syndrome Insomnia Degenerative joint disease Nocturnal leg cramps Dementia without behavioral disturbance GERD (gastroesophageal reflux disease) Constipation Vitamin D deficiency Neuropathy Vitamin B12 deficiency Epilepsy (~1998) Anemia Sinus bradycardia Pure hypercholesterolemia Diabetes mellitus Surgical History History of endoscopy History of ankle surgery (~2011) History of partial gastrectomy History of colonoscopy History of pacemaker (~2018) History of hysterectomy Family History Father Medical history unknown Mother No problems noted. Daughter No problems noted. Son No problems noted. Other Substance use disorder Social History Household Members: None Housing: House Are you a primary hospice care consultant to a significant other at home: No Do you presently have visiting nurse or other home services: No Alcohol intake: never Patient Tobacco Use Status: Former Tobacco user Tobacco use type: Cigarette e-Cigarette/Vaping Use: Never Used Second Hand Smoke Exposure: No Advance Directives Date on File: 10/03/24 service: No Current occupational status: retired Current occupation: [employer] Current occupational exposures/hazards: No Cognitive needs: No Hearing needs: No Vision needs: Yes Office Procedures Cardiac Device Check Cardiac Device Check Details: Remote pacemaker report generated 02/21/2025. Pacemaker function is adequate [id number] Cardiac Device Interrogation, pacemaker Procedure code (CPT) selection complete Assessment & Plan Assessment & Plan (1) Cardiac pacemaker in situ: Onset Date: ~2018 Comment: (Medtronic DCPP - placed 12/2018 - pocket revision 10/2021) Code(s): Z95.0 - Presence of cardiac pacemaker Category: Medical Plan: See above Coding Level of Care Code Procedure Only Diagnoses Cardiac pacemaker in situ Z95.0 CPT Codes Cardiac Device Check - Cardiac Device 12: [id number] Cardiac Device Interrogation, pacemaker ([id number])
== END ==
PROVIDERS: PCP Internal Medicine; Visit Provider Internal Medicine Cardiovascular Disease
DX: Z45.018 Encounter for adjustment and management of other part of cardiac pacemaker (principal)
CPT/HCPCS: 93294

== ENCOUNTER 2025-02-27 11:26 | Outpatient (AMB) | payer MEDICARE, SELFPAY ==
--- NOTE | 2025-02-27 11:28 | A.OFFVIS_ITS ---
Vital Signs 02/27/25 11:29 Height 4 ft 9 in Weight 83 lb 12.41 oz BMI 18.1 BP 122/57 L Blood Pressure Location Lt brachial Position Sitting Pulse 86 Intake Visit Reasons: 4 mo f.u Intake Note: Natividad presents in the office as a 4 month follow up. CC: She is having issues with losing weight. constpation once in a while but has been doing a lot better. Senior Software Qa Analyst Required: Yes Senior Software Qa Analyst Name: Son Allergies Penicillins Allergy (Intermediate, Verified 02/27/25 11:33) RASH Medication List - Last Reconciled 02/27/25 by Lebron Milian MD acetaminophen 500 mg PO Q6H PRN alendronate 70 mg PO MO atorvastatin 40 mg PO BEDTIME 90 days bisacodyl (Dulcolax (bisacodyl)) 10 mg (2 x 5 mg) PO BEDTIME PRN 30 days cholecalciferol (vitamin D3) (Vitamin D3) 50 mcg PO BID [COMPRESSION STOCKINGS - knee-high (medium compression) As directed] cyanocobalamin (vitamin B-12) 1,000 mcg PO DAILY docusate sodium 100 mg PO BID PRN donepezil 5 mg PO BEDTIME estradiol 0.01%(0.1mg/gram) (Estrace) apply a pea sized amount to fingertip and appy cream vaginally at bedtime vaginally daily; ferrous sulfate 325 mg PO DAILY 90 days gabapentin 300 mg PO BID hydrocortisone 2.5% 1 appl GA Q8-12H latanoprost 0.005% 1 drp ophthalmic (eye) BEDTIME levetiracetam 500 mg PO BID meclizine 12.5 mg PO TID PRN metformin 500 mg PO BID 90 days nut.tx.gluc.intol,lac-free,soy (Glucerna Therapeutic Nutrition oral liquid) 1 can orally 3 times a day with meals; 30 days omeprazole 20 mg PO DAILY HPI HPI 4 mo f.u: Details: GI CLINIC VISIT FOR THIS 84-YEAR-OLD LUXEMBOURGER-SPEAKING FEMALE FOLLOWED IN GI FOR GERD, CONSTIPATION AND RECTAL PROLAPSE: ? ? ?TODAY'S VISIT Pt is accompanied by her son who interpreted for the patient Natividad presents in the office as a 4 month follow up. CC: She is having issues with losing weight. constpation once in a while but has been doing a lot better. Intermittent constipation - has a BM twice a day. She was constipated for a day - able to go today and everything came out. Complains of decreased appetite, does not feel hungry. Eats twice a day and takes a can of Glucerna Takes metamucil, sekou and Miralax for constipation - not taking Senna any more. Pt lives with her son and a roomate PAST VISITS: Had a fall and has been in and out of the hospital - had a rib fracture Prescribed tylenol. Has been eating less and has been constipated. Taking senna twice a day since other medications were not approved by her insurance Using topical cream prn for pain due to hemorrhoids - denies rectal bleeding Gabapentin was increased to 300 mg twice a day. Natividad presents to in office visit today in follow up of constipation. CC: Patient c/o constipation and numbness from bilateral feet. Per patient's son they could not start the Linzess do to high copay cost ($300). Continues to have intermittent constipation Denies other GI concerns today Patient cc: acid reflex with burning sensation on and off, chronic constipation with bloody hemorrhoids. Denies any other GI issues. Complains of constipation and feels something coming out of her rectum - ? rectal prolapse versus hemorrhoids Notes intermittent rectal bleeding consisting of BRB. Has a BM twice a day with straining Taking Senna 1 pill twice a day and dulcolx 1 pill twice a day. Continues to have constipation. Pt notes rectal prolapse when she strains to have a BM Has been taking the medications and having a BM twice a day. Takes 1 capsule of Senna and one capsule of colace twice a day with good results Stool are sometimes soft and sometimes hard. (twice She has to push sonetimes if she feels constipated Noted some diarrhea today Not taking iron due to constipation Complains of constipation - last BM was 3 days ago. Usually has a BM 3 times a week with passage of hard stools Constipation is not as bad as before Has a BM daily or every two days in the morning. BM are soft and she is able to go after pushing a little bit. Not eating very much - feels full fast. Not taking iron anymore. Followed by Dr Segura in Oncology and on procrit injections prn if HB is less than 10.5 No BM for the past 2 days. Had Senna, Miralax and dulcolax. Also takes prunes. Denies black stools or rectal bleeding. Pt feels some thing hard in the rectum and has rectal pain. Mild fever this am. Resumed taking iron due to worsening anemia. Taking iron every other day. ?? ? Continues to have intermittent constipation - has a BM 1-2 times a day. If she gets constipated, it may take her a week to have a BM - takes prunes and fruits which helps. Taking Alive a multivitamin with probiotics every other day ?? ? Can go 2 to 3 days without a BM. ?? ? Has hard stools with straining - afraid to get a hemorrhoid. Denies uterine or rectal prolapse. Chronic MEGAN (due to partial gastrectomy) and does not take oral iron due to worsening constipation Offered IV iron and patient refused ?LABS IN [facility]:?01/27/20 CBC SHOWED MILD ANEMIA WITH H&H OF 10.2 AND 31.6, PLATELET 262, NORMAL CHEM PANEL AND LFTS, VITAMIN B12 1558, FOLATE 16.3 ?IMAGING STUDIES: NO RECENT GI IMAGING ?ENDOSCOPIC STUDIES: 02/13/20 EGD AND COLONOSCOPY SHOWED: ? STOMACH: Bilroth 1 Gastric anatomy. A 10 mm white nodule in the gastric body - biopsied. Mild diffuse gastric erythema. Biopsies were obtained. Grade 2 flap valve on retroflexed examination of the cardia. ? DUODENUM: Normal biopsied for celiac sprue. ? Colonoscopy Findings: ? One small adenomatous polyp removed ? Moderate diverticulosis seen in the entire colon ? Small hemorrhoids on retroflexed exam. ? Plan: ? Patient has an appointment on 03/19/20 in the GI Clinic with Lebron Milian M.D.-. ? Repeat Colonoscopy interval based on path results - in 5 years if polyp is adenomatous and 10 years if polyps are hyperplastic. ?BIOPSIES SHOWED: ? A. Small bowel, biopsy: Small intestinal mucosa within normal limits. ? B. Stomach, biopsy: Antral-type and oxyntic mucosa with mild chronic inactive inflammation; no Helicobacter organisms seen. ? C. Stomach nodule: Gastric mucosa with mild chronic mucosal inflammation and foamy macrophages consistent with xanthoma; no Helicobacter organism seen. ? D. Colon, random, biopsy: Colonic mucosa within normal limits. ? E. Colon, sigmoid, polypectomy: Tubular adenoma; no high grade dysplasia or carcinoma seen [facility] Medical History Osteoporosis (~2007) Tubular adenoma of colon (~2019) Post-menopausal Left arm swelling Swelling of lymph node Cardiac pacemaker in situ (~2018) Sick sinus syndrome Insomnia Degenerative joint disease Nocturnal leg cramps Dementia without behavioral disturbance GERD (gastroesophageal reflux disease) Constipation Vitamin D deficiency Neuropathy Vitamin B12 deficiency Epilepsy (~1998) Anemia Sinus bradycardia Pure hypercholesterolemia Diabetes mellitus Surgical History History of endoscopy History of ankle surgery (~2011) History of partial gastrectomy History of colonoscopy History of pacemaker (~2018) History of hysterectomy Family History Father Medical history unknown Mother No problems noted. Daughter No problems noted. Son No problems noted. 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 Current occupational exposures/hazards: No Cognitive needs: No Hearing needs: No Vision needs: Yes Review of Systems Const All systems reviewed & are unremarkable except as noted in HPI and below Physical Exam Vital Signs: Last Vital Signs Pulse 86 02/27/25 11:29 BP 122/57 L 02/27/25 11:29 BMI result Body Mass Index 18.1 Const General: no acute distress Nutritional Appearance: underweight Orientation/consciousness: patient oriented x3 Limitations: language barrier HEENT Head: Yes normal to inspection Ears: hearing grossly normal bilaterally Eyes Sclerae: sclerae normal Pupils: Equal, round and reactive pupils present Neck Neck: Yes normal visual inspection Chest Chest palpation & inspection: normal inspection of the chest Resp Effort & Inspection: normal respiratory effort Auscultation: clear to auscultation bilaterally Cardio Palpation: normal PMI Rate: regular rate Rhythm: regular rhythm Heart sounds: S1 normal heart sound present, S2 normal heart sound present and no murmurs GI Palpation (GI): Soft to palpation, nontender and No hepatosplenomegaly present Auscultation: normal bowel sounds Rectal Exam - Female: deferred Skin General skin exam: no rashes or lesions noted Neuro General: patient oriented x3, gait normal and moves all extremities Cranial nerves: Yes Equal, round and reactive pupils present Psych Appearance: grossly normal Mental Status: mental status grossly normal Assessment & Plan Assessment & Plan (1) Constipation: Code(s): K59.00 - Constipation, unspecified Category: Medical Qualifiers: Constipation type: unspecified constipation type Qualified Code(s): K59.00 - Constipation, unspecified (2) GERD (gastroesophageal reflux disease): Code(s): K21.9 - Gastro-esophageal reflux disease without esophagitis Category: Medical Qualifiers: Esophagitis presence: without esophagitis Qualified Code(s): K21.9 - Gastro-esophageal reflux disease without esophagitis (3) Hemorrhoids, internal, with bleeding: Code(s): K64.8 - Other hemorrhoids Category: Medical Plan 84 year old jamaican speaking female followed in GI for GERD, chronic constipation, iron deficiency anemia, fecal incontinence and suspected rectal prolapse. 02/13/20 EGD and Colonoscopy showed: Bilroth 1 Gastric anatomy. 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 Mild diffuse gastric erythema. Biopsies were negative for H pylori.? Duodenal biopsies were negative for celiac sprue 02/13/20 colonoscopy showed Diverticulosis and one small adenomatous polyp removed. Repeat colonoscopy is advised in 5 years (if pt remains in stable health)? - action set in [facility]. Pt has not been taking Miralax on a regular basis and resumed taking it when she felt worsening constipation. Pt was advised to take a rectal suppository and if no results to take a fleet enema. Advised to go to the ER for large volume tap water enema if she is unable to have a BM. She is to resume taking Miralax 1-2 times daily. Patient was offered referral to physical therapy for the pelvic floor which she declined. If patient continues to have constipation on FU, she will be prescribed Amitiza or Linzess. 10/13/22 Pt advised to resume taking iron every other day due to worsening MEGAN. To take a can of Glucerna once a day (pt takes one meal a day and takes coffee, fruit and snacks the rest of the day 03/02/23 Pt was advised to increase Senna to 1 tab twice daily and (then to 2 tab twice daily if no improvement in constipation) and take a stool softener at bedtime p.r.n. 07/06/23 Pt advised to increase senna and docusate to 2 capsules twice a day if she is unable to have a bowel movement 1-2 days. If no results to take 2 capsules of Dulcolax p.r.n. Pt is scheduled to see Dr Segura in 3 months with repeat labs to FU on anemia 12/28/23 Taking Senna 1 pill twice a day and dulcolx 1 pill twice a day. Continues to have constipation. Pt advised to use HC cream for hemorrhoids and start Linzess 72 mcg daily for constipation 02/08/24 Pt prescribed Amitiza 8 mcg twice daily (due to high copay for Linzess) 02/27/25 Pt advised to hold iron for 1 month to see if her appetite improves and she is able to gain some wt. If anemia gets worse, can resume taking iron every other day. Take glucerna 1 can twice daily Follow-up appointment in 3 months to FU on MEGAN, GERD and?constipation Medications: New polyethylene glycol 3350 (Miralax) 17 grams PO BID 3,060 grams 1RF 90 days K59.00 - Constipation, unspecified Coding Level of Care Code Est Pt Level 4 (37441) Diagnoses Constipation, unspecified constipation type K59.00 Constipation type: unspecified constipation type Gastroesophageal reflux disease without esophagitis K21.9 Esophagitis presence: without esophagitis Hemorrhoids, internal, with bleeding K64.8 Time Spent (min) 21
[2025-02-27 11:29] VITALS: BP 122/57; PULSE 86; BMI 18.1
--- OUTSIDE RECORDS SUMMARY | 2025-02-27 12:07 | XMS_ITS | Clinical Summary ---
Author Organization [facility] [address] [place] [address] Address [address] [place] [address] Phone Care Team Providers Care Over Short And Damage Clerk Name Role Phone Cuate Oscar MD Primary Care Provider + [phone] Allergies Active Allergy Reactions Criticality Noted Date [...] MOUTH EVERY 7 DAYS 12 tablet 1 5 Active Mapap, acetaminophen, 500 mg capsule TAKE 1 CAPSULE BY MOUTH EVERY 6 HOURS NEEDED FOR FEVER OR PAIN 5 Active brimonidine (ALPHAGAN) 0.2 % ophthalmic solution Administer 1 drop into the left eye 2 (two) times a day. 4 Active ferrous sulfate 325 mg (65 mg elemental iron) tablet Take 1 tablet (325 mg total) by mouth 1 (one) time each day. 4 Active hydrocortisone (ANUSOL-HC) 2.5 % rectal cream APPLY TO AFFECTED AREA RECTALLY EVERY 8-12 HOURS 4 Active meclizine (ANTIVERT) 12.5 mg tablet Take 1 tablet (12.5 mg total) by mouth 3 (three) times a day if needed for dizziness. 4 Active Active Problems Problem Noted Date Diagnosed Date Hyperparathyroidism ([facility] V24) 01/02/2024 Age-related osteoporosis wit hout current pathological fracture 06/27/2023 Encounters Date Type Department Care Team Description 12/30/2024 11:00 AM EDT Office Visit Endocrinology [address] [phone] Marta Milian PA Age-related osteoporosis without current pathological fracture (Primary Dx); Hyperparathyroidism ([facility] V24); Type 2 diabetes mellitus without complication, without long-term current use of insulin ([facility] V24, [facility] V28) from Last 3 Months Social History Tobacco [...] Sign Reading Time Taken Comments Blood Pressure 139/72 12/30/2024 10:51 AM EDT Pulse 86 12/30/2024 10:51 AM EDT Temperature 36.1 C (97 F) 12/30/2024 10:51 AM EDT Respiratory Rate - - Oxygen Saturation - - Inhaled Oxygen Concentration - - Weight 41 kg (90 lb 6.4 oz) 12/30/2024 10:51 AM EDT Height 142.2 cm (4' 8 ) 12/30/2024 10:51 AM EDT Body Mass Index 20.27 12/30/2024 10:51 AM EDT Plan of Treatment Upcoming Encounters Date Type Department Care Team (Late st Contact Info) Description 07/02/2025 11:15 AM EST Appointment Bone Density - [place] [address] [place] [address] 07/21/2025 11:00 AM EST Office Visit Endocrinology - [place] [address], [place] [phone] Marta Milian PA [address] [place] [address] Health Maintenance Due Date Last Done Comments Diabetes: Annual Foot Exam 1950 Diabetes: Annual Retina Eye Exam 1950 Cholesterol Screening (Lipid Panel) 07/24/2022 Depression Screening 07/24/2022 Falls Risk Assessment 07/24/2022 Medicare Annual Wellness Visit 07/24/2022 Osteoporosis Screening (Bone Density Screening) 07/24/2022 Social Influencers of Health Screening 07/24/2022 COVID-19 Vaccine (4 - 2023-2 5 season) 2024 06/27/2024, 07/09/2021, 01/01/2021 Diabetes: Annual Urine Albumin-Creatinine Ratio (uACR) 12/30/2024 Diabetes: Blood Sugar Contro l Test (HGBA1C) 12/30/2024 Zoster Vaccines (2 of 2) 01/07/2025 11/12/2024 Influenza Vaccine (#1) 2025 , 06/03/2022 Diabetes: Annual GFR (Glomerular Filtration Rate) 12/30/2025 12/30/2024, 12/28/2023, 12/28/2023 DTaP,Tdap,and Td Vaccines (2 - Td or Tdap) 03/11/2031 03/11/2021 RSV Immunization Adult Patients Completed 06/27/2024 Pneumococcal Vaccine: 50+ Years Completed 11/12/2024 HIB Vaccines Aged Out No longer eligi [...] on patient's age to complete this topic Procedures Procedure Name Priority Date/Time Associated Diagnosis Comments BASIC METABOLIC PANEL Routine 12/30/2024 11:42 AM EDT Age-related osteoporosis without current pathological fracture Hyperparathyroidism ([facility] V24) PARATHYROID HORMONE INTACT Routine 12/30/2024 11:42 AM EDT Age-related osteoporosis without current pathological fracture Hyperparathyroidism ([facility] V24) PHOSPHORUS Routine 12/30/2024 11:42 AM EDT Age-related osteoporosis without current pathological fracture Hyperparathyroidism ([facility] V24) VITAMIN D 25 HYDROXY Routine 12/30/2024 11:42 AM EDT Age-related osteoporosis without current pathological fracture from Last 3 Months Results * Vitamin D 25 hydroxy (12/30/2024 11:42 AM EDT) Vit D, 25-Hydroxy 48.2 30.0 - 80.0 ng/mL LAB CHEMISTRY METHOD 12/30/2024 4:11 PM EDT [facility] Blood Venous blood specimen / Unknown Venipuncture / Unknown 12/30/2024 11:42 AM EDT 12/30/2024 11:42 AM EDT us Marta FROST LAB BLOOD ORDERABLES Final Resul t Performing Organization Address [facility] Co de Phone Number [facility] [address] [place] [address], * Phosphorus (12/30/2024 11:42 AM EDT) Phosphorus 4.2 2.5 - 4.5 mg/dL LAB CHEMISTRY METHOD 12/30/2024 3:50 PM EDT [facility] Blood Venous blood specimen / Unknown Venipuncture / Unknown 12/30/2024 11:42 AM EDT 12/30/2024 11:42 AM EDT Marta FROST LAB BLOOD ORDERABLES Final Resul t Performing Organization Address [facility] de Phone Number [facility] [address] [place] [address], * Parathyroid hormone intact (12/30/2024 11:42 AM EDT) PTH 69.7 18.5 - 88.0 pcg/mL LAB CHEMISTRY METHOD 12/30/2024 4:11 PM EDT [facility] Blood Venous blood specimen / Unknown Venipuncture / Unknown 12/30/2024 11:42 AM EDT 12/30/2024 11:42 AM EDT Marta FORST LAB BLOOD ORDERABLES Final Resul t Performing Organization Address [facility] de Phone Number [facility] [address] [place] [address], [place] [phone] * (ABNORMAL) Basic metabolic panel (12/30/2024 11:42 AM EDT) Sodium 142 133 - 145 mmol/L LAB CHEMISTRY METHOD 12/30/2024 3:50 PM EDT [facility] Potassium 4.7 3.5 - 5.5 mmol/L LAB CHEMISTRY METHOD 12/30/2024 3:50 PM T [facility] Chloride 110 96 - 110 mmol/L LAB CHEMISTRY METHOD 12/30/2024 3:50 PM [facility] CO2 27 21 - 32 mmol/L LAB CHEMISTRY METHOD 12/30/2024 3:50 PM [facility] Anion Gap 5 3 - 11 LAB CHEMISTRY METHOD 12/30/2024 3:50 PM T [facility] Glucose 147(H) 70 - 100 mg/dL LAB CHEMISTRY METHOD 12/30/2024 3:50 PM [facility] BUN 18 5 - 25 mg/dL LAB CHEMISTRY METHOD 12/30/2024 3:50 PM [facility] Creatinine 0.82 0.50 - 1.10 mg/dL LAB CHEMISTRY METHOD 12/30/2024 3:50 PM [facility] eGFR 71 >=60 mL/min/1. 73m2 LAB CHEMISTRY METHOD 12/30/2024 3:50 PM T [facility] Comment:Calculation based on the Chronic Kidney Disease Epidemiology Collaboration (CKD-EPI) equation refit without adjustment for race. BUN/Creatinine Ratio 22.0 LAB CHEMISTRY METHOD 12/30/2024 3:50 PM [facility] Calcium 8.9 8.5 - 10.5 mg/dL LAB CHEMISTRY METHOD 12/30/2024 3:50 PM [facility] Blood Venous blood specimen / Unknown Venipuncture / Unknown 12/30/2024 11:42 AM EDT 12/30/2024 11:42 AM EDT us Marta FROST LAB BLOOD ORDERABLES Final Resul t [facility] [address] [place] [address], [place] [phone] from Last 3 Months Insurance MEDICARE Care Teams Over Short And Damage Clerk Relationship Specialty Start Date End Date Cuate Oscar MD [address] [place] [address] Dr Aide Grimaldo [place] PCP - General Internal Medicine 11/11/21
--- OUTSIDE RECORDS SUMMARY | 2025-02-27 12:07 | XMS_ITS | Clinical Summary ---
Author Organization [facility] Address [address] [place] [address] Care Team Providers Care Solar Systems Designer Name Role Phone Unavailable Primary Care Provider [...]
== END 2025-02-27 12:18 | disposition home or self-care (01) ==
LOC: HO.HGI 11:27
PROVIDERS: PCP Internal Medicine; Visit Provider Internal Medicine Gastroenterology
DX: K59.00 Constipation, unspecified (principal); K21.9 Gastro-esophageal reflux disease without esophagitis; K64.8 Other hemorrhoids
CPT/HCPCS: 99214

== ENCOUNTER → 2025-02-27 11:26 | Outpatient (BNVA) | payer MEDICARE, SELFPAY | PROVIDERS: PCP Internal Medicine; Visit Provider Internal Medicine Gastroenterology | DX: R63.4 Abnormal weight loss (principal); K59.00 Constipation, unspecified; K21.9 Gastro-esophageal reflux disease without esophagitis; K64.8 Other hemorrhoids | CPT/HCPCS: 99212 ==

== ENCOUNTER 2025-04-14 09:45 | Outpatient (REF) | payer MEDICARE, SELFPAY ==
[2025-04-14 10:19] LABS: MANUAL DIFF FLAG NO
--- OUTSIDE RECORDS SUMMARY | 2025-04-14 10:37 | XMS_ITS | Clinical Summary ---
Author Organization [facility] Address [address] [place] [address] Care Team Providers Care Deburr Technician Name Role Phone Unavailable Primary Care Provider [...] - 1-dose 75+ series) 2016 COVID-19 Vaccine ( - 2023-2 5 season) 2024 Hepatitis B Vaccines Aged Out No long er eligible based on patient's age to complete this topic
--- OUTSIDE RECORDS SUMMARY | 2025-04-14 10:37 | XMS_ITS | Clinical Summary ---
Author Organization [facility] [address] [place] [address] [place] [phone] Phone Care Team Providers Care Screw Machine Adjuster Automatic Name Role Phone Cuate Osacr MD Primary Care Provider + [phone] Allergies Active Allergy Reactions Criticality Noted Date [...] Problems Problem Noted Date Diagnosed Date Hyperparathyroidism ([facility] V24) 01/02/2024 Age-related osteoporosis wit hout current [...] 11:15 AM EST Appointment Bone Density - [place] [address] [place] [phone] 07/21/2025 11:00 AM EST Office Visit Endocrinology - [place] [address] [place] [address] Marta Milian PA [address] [place] [address] Health Maintenance Due Date Last Done Comments Falls Risk Assessment 07/24/2022 Medicare Annual Wellness Visit 07/24/2022 Osteoporosis Screening (Bone Density Screening) 07/24/2022 Social Influencers of Health Screening 07/24/2022 Depression Screening 08/21/2024 COVID-19 Vaccine (4 - 2023-2 5 season) 2024 06/27/2024, 07/09/2021, 01/01/2021 Zoster Vaccines (2 of 2) 01/07/2025 11/12/2024 Influenza Vaccine (#1) 2025 , 06/03/2022 DTaP,Tdap,and Td Vaccines (2 - Td or [...] complete this topic Insurance MEDICARE Care Teams Screw Machine Adjuster Automatic Relationship Specialty Start Date End Date Cuate Oscar MD [address] [place] [address] Dr Aide Grimaldo [place] PCP - General Internal Medicine 11/11/21
[2025-04-14 11:03] LABS: Hematocrit 37.9 % (37.0-47.0); Hemoglobin 11.8 g/dl (12.0-16.0); Imm Gran Abs Auto 0.04 X10*3/uL (0.00-0.03); Imm Gran Pct Auto 0.8 % (0.0-0.4); Lymphocytes Absolute Auto 1.9 X10*3/uL (1.2-4.9); Mean Corpuscular HGB Conc 31.1 g/dl (31.0-35.0); Mean Corpuscular Hemoglobin 29.6 pg (27.0-33.0); Mean Corpuscular Volume 95.2 fL (80.0-98.0); NRBC Abs Auto 0.000 X10*3/uL (0.0-0.012); NRBC Pct Auto 0.0 /100WBC (0.0-0.2); Platelet Count 162 X10*3/uL (160-400); Red Blood Count 3.98 X10*6/uL (4.20-5.50); White Blood Count 4.9 X10*3/uL (4.8-10.8)
[2025-04-14 11:08] LABS: Hemoglobin A1C 171.7698 umol/L; Total Hemoglobin (HGBA1C) 3097.2436 umol/L
[2025-04-14 11:23] LABS: Alanine Aminotransferase 29 U/L (0-31); Albumin Level 4.2 g/dL (3.5-5.0); Alkaline Phosphatase 72 U/L (39-117); Anion Gap 15 (12-20); Aspartate Amino Transferase 33 U/L (5-31); Blood Urea Nitrogen 22 mg/dL (9-16); Calcium 10.0 mg/dL (8.4-10.2); Carbon Dioxide 23 mmol/L (22-29); Chloride 107 mmol/L (96-108); Cholesterol 126 mg/dL (<200); Estimated Glomerular Filt Rate 50; HDL Cholesterol 56 mg/dL (>40); Potassium 5.9 mmol/L (3.3-5.1); Sodium 139 mmol/L (135-145); Total Protein 7.2 g/dL (6.5-8.0); Triglycerides 60 mg/dL (<150)
[2025-04-14 11:48] LABS: Folate 11.0 ng/mL (> or = 4.0); Vitamin B12 > 2000 pg/mL (200-900)
[2025-04-14 13:43] LABS: Appearance Urine Clear; Glucose Urine UA 500 mg/dL (Negative); PH 5.5 (5.0-9.0); Specific Gravity - Urine 1.015 (1.005-1.025); UMIC TRIGGER UACC YES
[2025-04-14 14:07] LABS: Other Crystals Urine Present; UACC Culture Trigger YES
[2025-04-14 14:18] LABS: Microalbum/Creatinine Ratio Ur 36.7 ug/mg cr (<30)
== END 2025-04-14 09:46 | disposition home or self-care (01) ==
LOC: HO.LAB 09:45
PROVIDERS: PCP Internal Medicine; Visit Provider Internal Medicine
DX: E11.9 Type 2 diabetes mellitus without complications (principal); E55.9 Vitamin D deficiency, unspecified; D64.9 Anemia, unspecified; E53.8 Deficiency of other specified B group vitamins; E78.00 Pure hypercholesterolemia, unspecified; R30.0 Dysuria
CPT/HCPCS: 36415; 80053; 80061; 81001; 82043; 82306; 82570; 82607; 82746; 83036; 84443; 85025; 87086

== ENCOUNTER 2025-04-25 10:36 | Outpatient (AMB) | payer MEDICARE, SELFPAY ==
[2025-04-25 10:45] VITALS: BP 122/80; PULSE 86; O2SAT 98; BMI 20.3
--- NOTE | 2025-04-25 10:45 | MHC.PC.OV ---
Vital Signs 04/25/25 10:45 Height 4 ft 8 in Weight 90 lb 6 oz BMI 20.3 BP 122/80 Blood Pressure Location Lt brachial Position Sitting Pulse 86 Pulse Source Pulse Oximeter Pulse Oximetry (%) 98 Oxygen Delivery Method Room Air Intake Visit Reasons: hyperlipidemia, DM, sick sinus syndrome, dementia, Microbiology Soil Scientist Required: No Accompanied by: Self / Same As Patient Allergies Penicillins Allergy (Intermediate, Verified 04/25/25 11:18) RASH Medication List - Last Reconciled 04/25/25 by Cuate Oscar MD acetaminophen 500 mg PO Q6H PRN alendronate 70 mg PO MO atorvastatin 40 mg PO BEDTIME 90 days bisacodyl (Dulcolax (bisacodyl)) 10 mg (2 x 5 mg) PO BEDTIME PRN 30 days cholecalciferol (vitamin D3) (Vitamin D3) 50 mcg PO BID [COMPRESSION STOCKINGS - knee-high (medium compression) As directed] cyanocobalamin (vitamin B-12) 1,000 mcg PO DAILY docusate sodium 100 mg PO BID PRN donepezil 5 mg PO BEDTIME estradiol 0.01%(0.1mg/gram) (Estrace) apply a pea sized amount to fingertip and appy cream vaginally at bedtime vaginally daily; ferrous sulfate 325 mg PO DAILY 90 days gabapentin 300 mg PO BID hydrocortisone 2.5% 1 appl CA Q8-12H latanoprost 0.005% 1 drp ophthalmic (eye) BEDTIME levetiracetam 500 mg PO BID meclizine 12.5 mg PO TID PRN metformin 500 mg PO BID 90 days nut.tx.gluc.intol,lac-free,soy (Glucerna Therapeutic Nutrition oral liquid) 1 can orally 3 times a day with meals; 30 days omeprazole 20 mg PO DAILY polyethylene glycol 3350 (Miralax) 17 grams PO BID 90 days Tobacco use date assessed: 04/25/25 Last assessed Fall Risk: 04/25/25 Dental Screening Dental Screen Date: 04/25/25 HPI hyperlipidemia, DM, sick sinus syndrome, dementia, HPI Details Patient comes in today for her follow up visit States that she is still experiencing recurrent dizziness; denies any headaches She denies any exertional chest pains although she still has frequent KRUGER, which is chronic No nausea/vomiting, no abdominal pain No change in bowel habits noted Patient adds that she has been experiencing recurrent cramping pain in her legs, which keep her up at night often Her son states that she also has a few significantly thickened and disfigured toenails and they are having a hard time trying to trim her nails and clear these up for her She had her follow-up labs done a few days ago - to discuss her results [facility] Medical History Osteoporosis (~2007) Tubular adenoma of colon (~2019) Post-menopausal Left arm swelling Swelling of lymph node Cardiac pacemaker in situ (~2018) Sick sinus syndrome Insomnia Degenerative joint disease Nocturnal leg cramps Dementia without behavioral disturbance GERD (gastroesophageal reflux disease) Constipation Vitamin D deficiency Neuropathy Vitamin B12 deficiency Epilepsy (~1998) Anemia Sinus bradycardia Pure hypercholesterolemia Diabetes mellitus Surgical History History of endoscopy History of ankle surgery (~2011) History of partial gastrectomy History of colonoscopy History of pacemaker (~2018) History of hysterectomy Family History Father Medical history unknown Mother No problems noted. Daughter No problems noted. Son No problems noted. 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 1. Little interest or pleasure in doing things: more than half the days 2. Feeling down, depressed, or hopeless: several days 3. Trouble falling or staying asleep, or sleeping too much: several days 4. Feeling tired or having little energy: nearly every day 5. Poor appetite or overeating: nearly every day 6. Feeling bad about yourself - or that you are a failure or have let yourself or your family down: not at all 7. Trouble concentrating on things, such as reading the newspaper or watching television: nearly every day 8. Moving or speaking so slowly that other people could have noticed. Or the opposite - being so fidgety or restless that you have been moving around a lot more than usual: nearly every day 9. Thoughts that you would be better off or of hurting yourself in some way: more than half the days Total score: 18 Depression Screening Interpretation: Positive Depression Screening Follow-up: Follow-up Visit Requested Depression Screening Done: Yes 67476 - PHQ-9 Billing: Yes Source: Developed by Drs. Yash Harris, Noemi Kaur, Alexander Parnell and colleagues, with an educational brittany from [employer]. Thrive Questionnaire Date Thrive assessed: 04/25/25 I am a: Patient What is your living situation today?: I have a steady place to live Within the past 12 months, did the food you bought not last and you didn't have the money to get more?: Never true Within the past 12 months, did you worry whether your food would run out before you got money to buy more?: Never true Do you have trouble paying for medicines?: No Do you have trouble getting transportation to medical appointments?: No Do you have trouble paying your heating and electricity bill?: No Do you have trouble taking care of your child, family member or friend?: No Do you have trouble with day-to-day activities such as bathing, preparing meals, shopping, managing finances, etc.?: No Are you currently unemployed and looking for a job?: No Are you interested in more education?: No Please select the resources that you would like help with: None Currently or been in a relationship where the following occur: No concerns reported THRIVE Score: 0 AUDIT C Alcohol Use Questionnaire (AUDIT-C) 1. How often do you have a drink containing alcohol?: Never 3. How often do you have six or more drinks on one occasion?: Never Total Score: 0 Score Reviewed/Action Taken: Yes SHER-7 AMB Questionnaire SHER-7 Date SHER - 7 assessed: 04/25/25 Feeling nervous, anxious, or on edge: 3 = Nearly every day Not being able to stop or control worryin = Nearly every day Worrying too much about different things: 3 = Nearly every day Trouble relaxin = Nearly every day Being so restless that it is hard to sit still: 1 = Several days Becoming easily annoyed or irritable: 3 = Nearly every day Feeling afraid as if something awful might happen: 3 = Nearly every day Total SHER-7 score (0-4 normal; 5-9 mild; 10-14 moderate; 15-21 severe): 19 Source: Developed by Drs. Yash Harris, Noemi Kaur, Alexander Parnell and colleagues, with an educational brittany from [employer]. Review of Systems Const Denies chills, Reports fatigue, Denies fever(s) and Denies headache(s) ENT Denies dysphagia, Reports dizziness (frequent), Denies otalgia, Denies headache(s), Denies neck pain, Denies odynophagia and Denies sore throat Card Denies chest pain, Denies palpitations and Denies dyspnea Resp Denies chest congestion, Denies cough and Denies dyspnea GI Denies abdominal pain, Reports constipation, Denies dysphagia, Denies heartburn, Denies diarrhea, Denies nausea, Denies odynophagia and Denies vomiting Denies difficulty voiding, Denies nocturia, Denies dysuria and Denies urinary urgency Musc Reports abnormal gait (unsteady; falling frequently lately), Denies back pain, Reports muscle cramps (Recurrent in legs, especially at night) and Denies neck pain Skin/Breast Details: (+) thickened and disfigured toenails on both feet Denies rash Neuro Reports abnormal gait (unsteady; falling frequently lately), Reports dizziness (frequent), Denies headache(s) and Reports radicular pain (improved on Gabapentin) Endo Reports fatigue and Denies palpitations Physical exam (Primary Care) Vital Signs: Last Vital Signs Pulse 86 04/25/25 10:45 BP 122/80 04/25/25 10:45 Pulse Ox 98 04/25/25 10:45 Oxygen Delivery Method Room Air 04/25/25 10:45 BMI result Body Mass Index 20.3 Tobacco/Smoking Status: Tobacco use Status Tobacco use date assessed 04/25/25 04/25/25 10:49 Patient Tobacco Use Status Former Tobacco user 04/25/25 10:49 Tobacco use type Cigarette 04/25/25 10:49 e-Cigarette/Vaping Use Never Used 04/25/25 10:49 PHQ-9: PHQ-9 Score PHQ-9: Total score 18 04/25/25 12:34 Depression Screening Interpretation: Positive Depression Screening Follow-up: Follow-up Visit Requested Thrive Assessment: Date of Thrive Assessment Date Thrive assessed 04/25/25 04/25/25 10:49 Currently or been in a relationship where the following occur: No concerns reported Const General: no acute distress and alert HENMT Ears: TM's normal bilaterally and EAC's normal Throat: Yes posterior oropharynx normal and Yes tonsils normal (no TP congestion) Neck Neck: Yes supple and No lymphadenopathy Thyroid: Thyroid normal Resp Auscultation: clear to auscultation bilaterally, no rales and no wheezes Cardio Rate: regular rate Rhythm: regular rhythm Heart sounds: no murmurs GI Palpation (GI): Soft to palpation and nontender Auscultation: normal bowel sounds General: Yes no CVA tenderness Back/Spine/Pelvis Back: no CVA tenderness Thoracic/Lumbar Spine: No lumbar spinal tenderness Skin Rashes: no rashes Extrem General: No clubbing, No cyanosis and Yes edema (1+ bipedal edema) Left upper extremity: shoulder/upper arm Details: tenderness (mild) Location: of the A-C joint; no swelling Right lower extremity: normal to inspection Left lower extremity: normal to inspection Results Reviewed Results Reviewed: Laboratory Tests 04/14/25 04/14/25 04/22/25 10:18 12:30 08:41 WBC 7.8 Hgb 10.8 L Hct 34.7 L Plt Count 205 D Sodium 142 Potassium 5.3 H Chloride 109 H Creatinine 1.03 Estimated GFR 51 Random Glucose 183 H Hemoglobin A1c % 7.2 H Calcium 9.0 D Ferritin 146 Total Bilirubin 0.6 AST 31 ALT 26 Triglycerides 60 Cholesterol 126 LDL Cholesterol, Calc 58 HDL Cholesterol 56 Vitamin B12 > 2000 H 25-OH Vitamin D Total 61.3 TSH 0.80 Ur Specific [place] 1.015 Urine Protein Negative Urine Glucose (UA) 500 H Urine Blood Negative Urine Nitrite Negative Ur Leukocyte Esterase Small (1+) H Microalb/Creat Ratio 36.7 H Coding Level of Care Code Est Pt Level 4 (43015) Diagnoses Pure hypercholesterolemia E78.00 Type 2 diabetes mellitus with diabetic neuropathy, without long-term current use of insulin E11.40 Diabetes mellitus complication detail: with unspecified neuropathy Diabetes mellitus complication status: with neurologic complications Diabetes mellitus custodial insulin use: without custodial use Diabetes mellitus type: type 2 Stasis edema of both lower extremities I87.303 Sinus bradycardia R00.1 Anemia, unspecified type D64.9 Anemia type: unspecified type Nonintractable epilepsy without status epilepticus, unspecified epilepsy type G40.909 Epilepsy type: unspecified Intractability: not intractable Status epilepticus: without status epilepticus Vitamin B12 deficiency E53.8 Neuropathy G62.9 Vitamin D deficiency E55.9 Nocturnal leg cramps G47.62 Constipation, unspecified constipation type K59.00 Constipation type: unspecified constipation type Gastroesophageal reflux disease without esophagitis K21.9 Esophagitis presence: without esophagitis Dementia without behavioral disturbance F03.90 Osteoarthritis, unspecified osteoarthritis type, unspecified site M19.90 Osteoarthritis location: unspecified site Osteoarthritis type: unspecified Onychomycosis B35.1 Glaucoma, unspecified glaucoma type, unspecified laterality H40.9 Glaucoma type: unspecified Laterality: unspecified laterality Insomnia, unspecified type G47.00 Insomnia type: unspecified Additional Codes PHQ-9 - 23664 - PHQ-9 Billing: Yes ([id number]) Assessment & Plan Assessment & Plan (1) Pure hypercholesterolemia: Code(s): E78.00 - Pure hypercholesterolemia, unspecified Category: Medical Plan: Results of her labs done a few days ago reviewed and discussed with patient and her son Reinforced low cholesterol diet Continue Atorvastatin 40 mg QD Will recheck her labs and fasting lipids in 3 months for follow-up (2) Diabetes mellitus: Code(s): E11.9 - Type 2 diabetes mellitus without complications Category: Medical Qualifiers: Diabetes mellitus complication detail: with unspecified neuropathy Diabetes mellitus complication status: with neurologic complications Diabetes mellitus custodial insulin use: without medical terminologist use Diabetes mellitus type: type 2 Qualified Code(s): E11.40 - Type 2 diabetes mellitus with diabetic neuropathy, unspecified Plan: Her HgbA1c was at 7.2% when recently checked last week (was at 6.9% a few months ago) - goal is at least <7.0% Reinforced diabetic diet Continue Metformin 500 mg BID but they are advised that we may need to either adjust her metformin dosage or start her on additional medications for her blood sugar if her HgbA1c continues to rise (3) Stasis edema of both lower extremities: Code(s): I87.303 - Chronic venous hypertension (idiopathic) without complications of bilateral lower extremity Category: Medical Plan: We held off on starting patient on oral diuretics as we do not want to risk dropping her blood pressure too low or cause her to get dehydrated as she already has poor oral intake and does not usually drink much all throughout the day Have also reassured them that based on her recent lab results her edema does not appear to be predominantly due to cardiac or renal causes We have encouraged her to try wearing some compression stockings to help minimize / reduce her edema She is also reminded to try to keep her legs elevated as often as she can throughout the day and at night when she is sleeping (4) Sinus bradycardia: Comment: (s/p [employer] DCPP placed 2019) Code(s): R00.1 - Bradycardia, unspecified Category: Medical Plan: Due to sick sinus syndrome - she is S/P dual-chamber permanent pacemaker insertion in 2019 with no recurrence of symptoms since She continues to be monitored remotely by cardiology for any untoward or irregular rhythms or abnormalities Follow up with cardiology as scheduled (5) Anemia: Code(s): D64.9 - Anemia, unspecified Category: Medical Qualifiers: Anemia type: unspecified type Qualified Code(s): D64.9 - Anemia, unspecified Plan: S/P IV iron infusion x 1 back in April 2022 and she apparently has not needed any more infusions afterwards She was recommended by hematology to continue on Procrit but only if her Hgb drops below 10 .5 Her H/H is again low at 10.8/34.7 on her recent labs Will continue to monitor her CBC regularly (6) Epilepsy: Onset Date: ~1998 Comment: Complex partial seizure Code(s): G40.909 - Epilepsy, unspecified, not intractable, without status epilepticus Category: Medical Qualifiers: Epilepsy type: unspecified Intractability: not intractable Status epilepticus: without status epilepticus Qualified Code(s): G40.909 - Epilepsy, unspecified, not intractable, without status epilepticus Plan: (+) Complex partial seizure with no recurrence Continue Levetiracetam 750 mg BID Follow-up with Neurology as scheduled (7) Vitamin B12 deficiency: Comment: (related to partial gastrectomy for PUD) Code(s): E53.8 - Deficiency of other specified B group vitamins Category: Medical Plan: Her B12 level is again very high on her recent labs - they have previously been instructed to try cutting back on her B12 tablets to every other day but she is currently still on it daily Have advised patient's son to try and help her remember to cut back on her Vitamin B12 to 1 tablet every other day Will continue to monitor her B12 level regularly Have also advised them that patient's frequent dizziness may potentially be due to her very high serum vitamin B12 level so it is important for them to try to cut her regular intake down to 1 to 2 times a week only (8) Neuropathy: Code(s): G62.9 - Polyneuropathy, unspecified Category: Medical Plan: EMG and NCV done back in April 2018 showed findings consistent with peripheral neuropathy Repeat NCV & EMG done in February 2023 showed (+) 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 and findings that are consistent with minimal chronic neuropathic changes in the EDB muscle States that her symptoms have improved a lot on Gabapentin, which she currently still takes at 300 mg Q HS (9) Vitamin D deficiency: Code(s): E55.9 - Vitamin D deficiency, unspecified Category: Medical Plan: Continue Vitamin-D3 2000 units QD (10) Nocturnal leg cramps: Code(s): G47.62 - Sleep related leg cramps Category: Medical Plan: Continue Ropinirole 0.25 mg Q HS Will start patient again on Tizanidine 2 mg Q HS PRN for leg cramps (11) Constipation: Code(s): K59.00 - Constipation, unspecified Category: Medical Qualifiers: Constipation type: unspecified constipation type Qualified Code(s): K59.00 - Constipation, unspecified Plan: Patient is encouraged again on increased oral fluids and dietary fiber Continue MiraLax 17 g daily and Colace 100 mg 1 to 2 times a day as needed; she was also started on Amitiza 8 mcg BID by GI a few months ago Follow up with GI (Dr. Milian) as scheduled (12) GERD (gastroesophageal reflux disease): Code(s): K21.9 - Gastro-esophageal reflux disease without esophagitis Category: Medical Qualifiers: Esophagitis presence: without esophagitis Qualified Code(s): K21.9 - Gastro-esophageal reflux disease without esophagitis Plan: Dietary restrictions reinforced Continue Omeprazole 20 mg QD (13) Dementia without behavioral disturbance: Code(s): F03.90 - Unspecified dementia, unspecified severity, without behavioral disturbance, psychotic disturbance, mood disturbance, and anxiety Category: Medical Plan: Patient's dementia has been stable for a while now, per family Follow up with Neurology as scheduled (14) Degenerative joint disease: Code(s): M19.90 - Unspecified osteoarthritis, unspecified site Category: Medical Qualifiers: Osteoarthritis location: unspecified site Osteoarthritis type: unspecified Qualified Code(s): M19.90 - Unspecified osteoarthritis, unspecified site Plan: S/P?medial and lateral malleolar fractures of the left ankle in? 2011 -? symptoms have been mostly manageable (15) Onychomycosis: Code(s): B35.1 - Tinea unguium Category: Medical Plan: Will refer her to podiatry for further evaluation and management (16) Glaucoma: Code(s): H40.9 - Unspecified glaucoma Category: Medical Qualifiers: Glaucoma type: unspecified Laterality: unspecified laterality Qualified Code(s): H40.9 - Unspecified glaucoma Plan: Continue Brimonidine eyedrops 0.1% BID Follow up with ophthalmology as scheduled (17) Insomnia: Code(s): G47.00 - Insomnia, unspecified Category: Medical Qualifiers: Insomnia type: unspecified Qualified Code(s): G47.00 - Insomnia, unspecified Plan: Sleep hygiene reinforced Continue Melatonin 5 mg once a day at bedtime as needed Plan Follow up in 3 months Orders: Orders Complete Blood Count Auto Diff 3 Months D64.9 - Anemia, unspecified Vitamin D 25-OH Total 3 Months E55.9 - Vitamin D deficiency, unspecified Comprehensive [place]. Panel Fast 3 Months E78.00 - Pure hypercholesterolemia, unspecified Lipid Panel 3 Months E78.00 - Pure hypercholesterolemia, unspecified TSH reflex Free T4 3 Months E78.00 - Pure hypercholesterolemia, unspecified UA CC w/rflx Micro + Cult 3 Months R30.0 - Dysuria Magnesium 3 Months E83.42 - Hypomagnesemia Vitamin B12 and Folate 3 Months E53.8 - Deficiency of other specified B group vitamins Referrals Podiatry Referral B35.1 - Tinea unguium Medications: New tizanidine 2 mg PO BEDTIME 30 tabs 3RF muscle cramps 30 days
--- OUTSIDE RECORDS SUMMARY | 2025-04-25 11:35 | XMS_ITS | Clinical Summary ---
Author Organization Formerly [facility] Address [address] [place] [address] Care Team Providers Care Data Officer Name Role Phone Unavailable Primary Care Provider [...]
--- OUTSIDE RECORDS SUMMARY | 2025-04-25 11:35 | XMS_ITS | Clinical Summary ---
Author Organization [facility] [address] [place] [address] [place] [phone] Phone Care Team Providers Care Needle Loom Operator Helper Name Role Phone Cuate Oscar MD Primary Care Provider + [phone] Allergies Active Allergy Reactions Criticality Noted Date [...] mouth 2 (two) times a day. Active cholecalcifero l (VITAMIN D-3) 50 mcg (2,000 unit) tablet Take 50 mcg by mouth 2 Times Daily. Active atorvastatin (LIPITOR) 40 mg tablet Take 1 Tablet by mouth daily. Active levETIRAcetam (KEPPRA) 750 mg tablet Take 500 mg by mouth 2 (two) times a day. Active cyanocobalamin (VITAMIN B-12) 1,000 mcg tablet Take 1 Tablet by mouth daily. Active Mapap, acetaminophen, 500 mg capsule TAKE 1 CAPSULE BY MOUTH EVERY 6 HOURS NEEDED FOR FEVER OR PAIN 10/10/19 25 Active brimonidine (ALPHAGAN) 0.2 % ophthalmic solution Administer 1 drop into the left eye 2 (two) times a day. 07/31/20 24 Active ferrous sulfate 325 mg (65 mg elemental iron) tablet Take 1 tablet (325 mg total) by mouth 1 (one) time each day. 08/06/20 24 Active hydrocortisone (ANUSOL-HC) 2.5 % rectal cream APPLY TO AFFECTED AREA RECTALLY EVERY 8-12 HOURS 05/16/20 24 Active meclizine (ANTIVERT) 12.5 mg tablet Take 1 tablet (12.5 mg total) by mouth 3 (three) times a day if needed for dizziness. 05/24/20 24 Active alendronate (FOSAMAX) 70 mg tablet TAKE 1 TABLET BY MOUTH EVERY 7 DAYS 12 tablet 1 04/17/20 25 Active alendronate (FOSAMAX) 70 mg tablet TAKE 1 TABLET BY MOUTH EVERY 7 DAYS 12 tablet 1 11/14/19 25 025 Discontinued Active Problems Problem Noted Date Diagnosed Date Hyperparathyroidism ([facility] V24) 01/02/2024 Age-related osteoporosis wit [...] AM EST Appointment Bone Density - [facility] [address] [place], [place] [phone] 07/21/2025 11:00 AM EST Office Visit [facility]in[facility] [place] [address] [facility] [place] [phone] Marta Milian PA [address] [place], [place] Health Maintenance Due Date Last Done Comments Falls Risk Assessment 07/24/2022 Medicare Annual Wellness Visit 07/24/2022 Osteoporosis Screening (Bone Density Screening) 07/24/2022 Social Influencers of Health Screening 07/24/2022 Depression Screening 08/21/2024 Zoster Vaccines (2 of 2) 01/07/2025 11/12/2024 COVID-19 Vaccine (4 - 2023-2 5 season) 2025 06/27/2024, 07/09/2021, 01/01/2021 Influenza Vaccine (#1) 2025 , 06/03/2022 DTaP,Tdap,and [...] complete this topic Insurance MEDICARE Care Teams Needle Loom Operator Helper Relationship Specialty Start Date End Date Cuate Oscar MD [address] [place] [address] Aide Grimaldo [place] PCP - General Internal Medicine 11/11/21
== END 2025-04-25 11:36 | disposition home or self-care (01) ==
LOC: HO.HMCH 10:37
PROVIDERS: PCP Internal Medicine; Visit Provider Internal Medicine
DX: E78.00 Pure hypercholesterolemia, unspecified (principal); E11.40 Type 2 diabetes mellitus with diabetic neuropathy, unspecified; G40.909 Epilepsy, unspecified, not intractable, without status epilepticus; F03.90 Unspecified dementia, unspecified severity, without behavioral disturbance, psychotic disturbance, mood disturbance, and anxiety; I87.303 Chronic venous hypertension (idiopathic) without complications of bilateral lower extremity; R00.1 Bradycardia, unspecified; D64.9 Anemia, unspecified; E53.8 Deficiency of other specified B group vitamins; G62.9 Polyneuropathy, unspecified; E55.9 Vitamin D deficiency, unspecified; G47.62 Sleep related leg cramps; K59.00 Constipation, unspecified

== ENCOUNTER → 2025-04-25 10:36 | Outpatient (BNVA) | payer MEDICARE, SELFPAY | PROVIDERS: PCP Internal Medicine; Visit Provider Internal Medicine | DX: R42 Dizziness and giddiness (principal); E78.00 Pure hypercholesterolemia, unspecified; E11.40 Type 2 diabetes mellitus with diabetic neuropathy, unspecified; I87.303 Chronic venous hypertension (idiopathic) without complications of bilateral lower extremity; R00.1 Bradycardia, unspecified; D64.9 Anemia, unspecified; E53.8 Deficiency of other specified B group vitamins; G62.9 Polyneuropathy, unspecified; G47.62 Sleep related leg cramps; K59.00 Constipation, unspecified; K21.9 Gastro-esophageal reflux disease without esophagitis; F03.90 Unspecified dementia, unspecified severity, without behavioral disturbance, psychotic disturbance, mood disturbance, and anxiety; M19.90 Unspecified osteoarthritis, unspecified site; B35.1 Tinea unguium; H40.9 Unspecified glaucoma; G47.00 Insomnia, unspecified; R30.0 Dysuria; E83.42 Hypomagnesemia | CPT/HCPCS: 96127; 99212 ==

== ENCOUNTER 2025-05-07 10:19 | Outpatient (AMB) | payer MEDICARE, SELFPAY ==
--- NOTE | 2025-05-07 10:22 | MHC.OFFVIS ---
Vital Signs 05/07/25 10:24 Height 4 ft 8 in Weight 90 lb BMI 20.2 Intake Visit Reasons: Tinea Unguium Intake Note: Natividad is a 84 year old female who presents to the office today as a new patient visit referred by her PCP Dr. Polo for Tinea unguium. patient's son states that she has bilateral fungal growth on the great toe and they have tried an OTC fungal spray and found that it has helped slightly. Patient reports she is having more pain in her right great toe more then the left and the pain has been going an for around 1.5 months. Data Technical Lead Required: Yes Data Technical Lead Services: Data Technical Lead Present Data Technical Lead Name: [id number] Allergies Penicillins Allergy (Intermediate, Verified 05/07/25 10:31) RASH Medication List - Last Reconciled 05/07/25 by Luis Atwood DPM acetaminophen 500 mg PO Q6H PRN alendronate 70 mg PO MO atorvastatin 40 mg PO BEDTIME 90 days bisacodyl (Dulcolax (bisacodyl)) 10 mg (2 x 5 mg) PO BEDTIME PRN 30 days cholecalciferol (vitamin D3) (Vitamin D3) 50 mcg PO BID [COMPRESSION STOCKINGS - knee-high (medium compression) As directed] cyanocobalamin (vitamin B-12) 1,000 mcg PO DAILY docusate sodium 100 mg PO BID PRN donepezil 5 mg PO BEDTIME estradiol 0.01%(0.1mg/gram) (Estrace) apply a pea sized amount to fingertip and appy cream vaginally at bedtime vaginally daily; ferrous sulfate 325 mg PO DAILY 90 days gabapentin 300 mg PO BID hydrocortisone 2.5% 1 appl [place] Q8-12H latanoprost 0.005% 1 drp ophthalmic (eye) BEDTIME levetiracetam 500 mg PO BID meclizine 12.5 mg PO TID PRN metformin 500 mg PO BID 90 days nut.tx.gluc.intol,lac-free,soy (Glucerna Therapeutic Nutrition oral liquid) 1 can orally 3 times a day with meals; 30 days omeprazole 20 mg PO DAILY polyethylene glycol 3350 (Miralax) 17 grams PO BID 90 days tizanidine 2 mg PO BEDTIME 30 days HPI HPI Tinea Unguium: Details: 85-year-old female with past medical history of diabetes mellitus type 2, coronary artery disease with pacemaker, osteoporosis who presents for painful ingrown right toenail. She states that she has had chronic ingrown nails in the past. She saw a commercial sheet metal foreman who had performed a total nail avulsion, which only treated her symptoms temporarily. She also had a painful experience, stating that the numbing injection did not work. The patient has done states that he trims her toenails daily to prevent any recurrent ingrown nails however the symptoms have returned. They have also tried topical antifungal medications which have not worked. She denies any other pedal complaints at this time. [facility] Medical History Osteoporosis (~2007) Tubular adenoma of colon (~2019) Post-menopausal Left arm swelling Swelling of lymph node Cardiac pacemaker in situ (~2018) Sick sinus syndrome Insomnia Degenerative joint disease Nocturnal leg cramps Dementia without behavioral disturbance GERD (gastroesophageal reflux disease) Constipation Vitamin D deficiency Neuropathy Vitamin B12 deficiency Epilepsy (~1998) Anemia Sinus bradycardia Pure hypercholesterolemia Diabetes mellitus Surgical History History of endoscopy History of ankle surgery (~2011) History of partial gastrectomy History of colonoscopy History of pacemaker (~2018) History of hysterectomy Family History Father Medical history unknown Mother No problems noted. Daughter No problems noted. Son No problems noted. 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 Interdigital spaces: Clear, no maceration or fungal infection. Nails: Thickened dystrophic incurvated nail right foot, medial border ingrown. Left hallux nail thickened and discolored, ingrown to the lateral border. Slight loosening to the right hallux nail. No erythema or clinical signs of infection. Neuro: Protective sensation grossly intact to bilateral lower extremities. Msk: Deformities: No evidence of hammertoes, bunions, Charcot changes, or other structural abnormalities. Muscle strength: 5/5 in all muscle groups. Gait: Normal, no antalgic or steppage gait observed. Footwear Assessment: Shoes inspected; appropriate fit, no excessive wear, or foreign objects noted. Office Procedures AMB Debridement/Avulsion Podia Details: Procedure: Nail debridement/slant back procedure Indication: Hypertrophic, discolored, thickened, ingrown right and lateral hallux nail Anesthesia: None Description: The digit was prepped. A sterile nail Nipper was used to resect the ingrown portion of the nails. There was scant bleeding noted at the medial border of the right hallux. This was noted to stop and then dressed with antibiotic ointment and Band-Aid. Tolerance: Patient tolerated procedure well, no immediate complications. 42170-Ldppgvcewdb of Nail <6 (Sign back procedure performed of right hallux medial and lateral nail border, and left hallux lateral border.) Procedure code (CPT) selection complete Office Meds Triple Antibiotic 3.5 mg-400 unit-5,000 unit topical ointment packet Performing Provider: uLis Atwood DPM Performing Location: [facility] Administered by: Luis Atwood DPM on 05/07/25 11:08 Dose Route Admin Location Dispensed Lot Number Expiration Date [facility] 1 appl topical 1 appl [id number] [employer] Results Reviewed Results Reviewed: Laboratory Tests 04/14/25 04/22/25 10:18 08:41 Hemoglobin A1c % 7.2 H AST 31 ALT 26 Assessment & Plan Assessment & Plan (1) Diabetes mellitus: Code(s): E11.9 - Type 2 diabetes mellitus without complications Category: Medical Qualifiers: Diabetes mellitus type: type 2 Diabetes mellitus joint terminal attack controller insulin use: without joint terminal attack controller use Diabetes mellitus complication status: with neurologic complications Diabetes mellitus complication detail: with unspecified neuropathy Qualified Code(s): E11.40 - Type 2 diabetes mellitus with diabetic neuropathy, unspecified Plan: Risk Stratification: No current ulceration, infection, or pre-ulcerative lesion. No loss of protective sensation or peripheral arterial disease. No plans for further testing/referrals for non-invasive vascular studies. Patient is at low risk for diabetic foot complications at this time. Recommendations: Continue routine foot care and daily self-inspection. Recommend moisturizing daily. Recommend supportive proper fitting shoe-wear. The patient may require diabetic shoes in the future. Reinforced diabetic foot education and risks from peripheral neuropathy. (2) Onychomycosis: Code(s): B35.1 - Tinea unguium Category: Medical Plan: Discussed treatment options including topical treatment versus oral antifungal medications. Explained that oral antifungals such as terbinafine (Lamisil) may cause gastrointestinal upset, headache, rash, taste disturbances, and hepatotoxicity. Baseline and monthly liver function monitoring is recommended during therapy. Patient and her son elected for topical treatment. Rx ciclopirox. (3) Paronychia of great toe of right foot: Code(s): L03.031 - Cellulitis of right toe Category: Medical Plan: Slant back nail debridement procedure performed to right and left hallux nails. Dressed right hallux with antibiotic ointment and Band-Aid. Instructed to perform Epsom salt soaks daily. Follow up in 2 months. Orders: Orders AMB Debridement/Avulsion Podiatry Today L03.031 - Cellulitis of right toe Medications: New ciclopirox 0.77% Applied to fungal toenail daily. Remove build-up at the end of the week. 1 appl topical BID 6.6 mL 3RF Onychomycosis 6 months B35.1 - Tinea unguium Coding Level of Care Code New Pt Level 4 (53077) Diagnoses Type 2 diabetes mellitus with diabetic neuropathy, without long-term current use of insulin E11.40 Diabetes mellitus type: type 2 Diabetes mellitus joint terminal attack controller insulin use: without joint terminal attack controller use Diabetes mellitus complication status: with neurologic complications Diabetes mellitus complication detail: with unspecified neuropathy Onychomycosis B35.1 Paronychia of great toe of right foot L03.031 CPT Codes Skin Debridement - CPT: 95809-Taheluqlqnd of Nail <6 ([id number]) Time Spent (min) 35
[2025-05-07 10:24] VITALS: BMI 20.2
--- OUTSIDE RECORDS SUMMARY | 2025-05-07 12:36 | XMS_ITS | Clinical Summary ---
Author Organization [facility] [address] [place] [address] [place] [phone] Phone Care Team Providers Care Spout Worker Name Role Phone Cuate Oscar MD Primary Care Provider + [phone] Allergies Active Allergy Reactions Criticality Noted Date [...] Problems Problem Noted Date Diagnosed Date Hyperparathyroidism ([facility] V24) 01/02/2024 Age-related osteoporosis wit [...] EST Appointment Bone Density - Elle Matias [place], [place] [phone] 07/21/2025 11:00 AM EST Office [facility] [place] [address] [facility] [place] [phone] Marta Milian PA [address] [place], [place] Health Maintenance Due Date Last Done [...] complete this topic Insurance MEDICARE Care Teams Spout Worker Relationship Specialty Start Date End Date Cuate Oscar MD [address] [place] [address] Aide Grimaldo [place] PCP - General Internal Medicine 11/11/21
--- OUTSIDE RECORDS SUMMARY | 2025-05-07 12:36 | XMS_ITS | Clinical Summary ---
Author Organization [facility] Address [address] [place] [address] Care Team Providers Care Eligibility Clerk Name Role Phone Unavailable Primary Care Provider Unavailabl e Social History Tobacco Use Types Packs/Day Years Used Date Smoking Tobacco: Never Assessed Comments Unknown Sex and Gender Information Value Date Recorded Sex Assigned at Not on file Legal Sex Female 5:51 PM EDT Gender Identity Not on file Sexual Orientation Not on file Plan of Treatment Health Maintenance Due Date Last Done Comments Advance Care Planning 1940 DTaP/Tdap/Td Vaccines (1 - Tdap) 1960 Pneumococcal Vaccines 50+ (1 of 1 - PCV) 1991 Zoster (Shingles) Vaccine (1 of 2) 1991 RSV Vaccine 60 years and old er and Patients (1 - 1-dose 75+ series) 2016 COVID-19 Vaccine (2023-2 5 season) 2025 Hepatitis B Vaccines Aged Out No long er eligible based on patient's age to complete this topic
== END 2025-05-07 10:58 | disposition home or self-care (01) ==
LOC: HO.HPODS 10:20
PROVIDERS: PCP Internal Medicine; Visit Provider Student in an Organized Health Care Education/Training Program
DX: E11.40 Type 2 diabetes mellitus with diabetic neuropathy, unspecified (principal); B35.1 Tinea unguium; L03.031 Cellulitis of right toe
CPT/HCPCS: 11720; 99204

== ENCOUNTER → 2025-05-07 10:19 | Outpatient (BNVA) | payer MEDICARE, SELFPAY | PROVIDERS: PCP Internal Medicine; Visit Provider Student in an Organized Health Care Education/Training Program | DX: E11.40 Type 2 diabetes mellitus with diabetic neuropathy, unspecified (principal); B35.1 Tinea unguium; L03.031 Cellulitis of right toe; L60.2 Onychogryphosis; Z79.4 Long term (current) use of insulin | CPT/HCPCS: 11720; 99202 ==

== ENCOUNTER 2025-05-09 10:11 | Outpatient (REF) | payer MEDICARE, SELFPAY ==
--- NOTE | ~2025-05-09 | US_ITS ---
EXAMINATION: US KIDNEY BILATERAL HISTORY: R39.9 - Unspecified symptoms and signs involving the genitourinary system TECHNIQUE: Real-time grayscale ultrasound imaging of the kidneys was performed and images were reviewed. COMPARISON: Correlation is made with a CT of the abdomen without contrast dated 10/10/2024. FINDINGS: Right kidney: The right kidney measures 8.9 x 3.3 x 3.7 cm. Renal parenchymal echotexture and thickness are normal. There are no masses. Multiple nonobstructing calculi measuring up to 4 mm in size as seen in the midportion of the kidney and at the lower pole. There is no hydronephrosis. Left Kidney: The left kidney measures 8.7 x 3.6 x 3.6 cm. Renal parenchymal echotexture and thickness are normal. There are no masses. Multiple nonobstructing calculi measuring up to 4 mm in size and noted at the upper and lower poles. There is no hydronephrosis. US/US renal BI IMPRESSION: Bilateral nephrolithiasis as described. No hydronephrosis. Electronically signed by: Yash Flores MD 05/09/2025 11:45 AM EDT
--- OUTSIDE RECORDS SUMMARY | 2025-05-09 10:46 | XMS_ITS | Clinical Summary ---
Author Organization [facility] [address] [place] [address] [place] [phone] Phone Care Team Providers Care E Commerce Specialist Name Role Phone Cuate Oscar MD Primary Care Provider + [phone] Allergies Active Allergy Reactions Criticality Noted Date [...] Problems Problem Noted Date Diagnosed Date Hyperparathyroidism ([facility] V24) 01/02/2024 Age-related osteoporosis wit hout current [...] EST Appointment Bone Density - Elle Matias [place], [place] [phone] 07/21/2025 11:00 AM EST Office [facility] [place] [address] [facility] [place] [phone] Marta Milian PA [address] [place], [place] Health Maintenance Due Date Last Done [...] complete this topic Insurance MEDICARE Care Teams E Commerce Specialist Relationship Specialty Start Date End Date Cuate Oscar MD [address] [place] [address] Aide Grimaldo [place] PCP - General Internal Medicine 11/11/21
--- OUTSIDE RECORDS SUMMARY | 2025-05-09 10:46 | XMS_ITS | Clinical Summary ---
Author Organization [facility] Address [address] [place] [address] Care Team Providers Care Direct Casting Operator Name Role Phone Unavailable Primary Care [...]
== END 2025-05-09 10:12 | disposition home or self-care (01) ==
LOC: HO.US 10:11
PROVIDERS: PCP Internal Medicine; Visit Provider Urology
DX: R39.9 Unspecified symptoms and signs involving the genitourinary system (principal); R30.0 Dysuria
CPT/HCPCS: 76775

== ENCOUNTER → 2025-05-09 10:13 | Outpatient (BNV) | payer MEDICARE, SELFPAY | PROVIDERS: PCP Internal Medicine; Visit Provider Radiology Diagnostic Radiology | DX: N20.0 Calculus of kidney (principal) | CPT/HCPCS: 76775 ==

== ENCOUNTER 2025-05-16 10:01 | Outpatient (AMB) | payer MEDICARE, SELFPAY ==
--- NOTE | 2025-05-16 10:12 | A.OFFVIS_ITS ---
Intake Visit Reasons: 6m/US Intake Note: Patient presents to office today for cystoscopy Urology Medication:None Blood Thinner:None Antibiotic Allergies: Penicillin Allergies Penicillins Allergy (Intermediate, Verified 05/16/25 10:16) RASH Medication List - Last Reconciled 05/16/25 by Per Sanchez MD acetaminophen 500 mg PO Q6H PRN alendronate 70 mg PO MO atorvastatin 40 mg PO BEDTIME 90 days bisacodyl (Dulcolax (bisacodyl)) 10 mg (2 x 5 mg) PO BEDTIME PRN 30 days cholecalciferol (vitamin D3) (Vitamin D3) 50 mcg PO BID ciclopirox 0.77% 1 appl topical BID 6 months [COMPRESSION STOCKINGS - knee-high (medium compression) As directed] cyanocobalamin (vitamin B-12) 1,000 mcg PO DAILY docusate sodium 100 mg PO BID PRN donepezil 5 mg PO BEDTIME estradiol 0.01%(0.1mg/gram) (Estrace) apply a pea sized amount to fingertip and appy cream vaginally at bedtime vaginally daily; ferrous sulfate 325 mg PO DAILY 90 days gabapentin 300 mg PO BID hydrocortisone 2.5% 1 appl [place] Q8-12H latanoprost 0.005% 1 drp ophthalmic (eye) BEDTIME levetiracetam 500 mg PO BID meclizine 12.5 mg PO TID PRN metformin 500 mg PO BID 90 days nut.tx.gluc.intol,lac-free,soy (Glucerna Therapeutic Nutrition oral liquid) 1 can orally 3 times a day with meals; 30 days omeprazole 20 mg PO DAILY polyethylene glycol 3350 (Miralax) 17 grams PO BID 90 days tizanidine 2 mg PO BEDTIME 30 days HPI Comments Details: 05/16/25-Natividad is here for follow-up due to bilateral renal calculi and irritative voiding symptoms. On previous evaluation she was prescribed vaginal estradiol for atrophic vaginitis. She had renal ultrasound done on 05/09/25 to monitor kidney stones. History of Present Illness The patient is an 85-year-old female presenting for follow-up due to bilateral renal calculi and irritative voiding symptoms. The patient has a history of bilateral renal calculi, which were identified during a previous evaluation. The stones are small, measuring less than 3 mm in both kidneys, as confirmed by a recent CT scan in September. Preventative care measures include dietary modifications to manage renal calculi. The patient has been advised to increase fluid intake, limit sodium, and incorporate lemon into her diet. And diet sheet provided. The patient also experiences irritative voiding symptoms, which have been managed with vaginal estradiol for atrophic vaginitis. The patient reports using the medication twice daily, (pea size on fingertip) which has improved her symptoms. Preventative care measures include dietary modifications to manage renal calculi. The patient has been advised to increase fluid intake, limit sodium, and incorporate lemon into her diet. 30 minutes spent in review of records pertaining to this visit and including [id number] discussion with the patient and documentation of this visit. Results - CT scan (September): Bilateral renal calculi multiple less than 3 mm - Ultrasound: No significant change in stone size Plan 1. Bilateral Renal Calculi - Continue monitoring with CT stone protocol in nine months - Dietary modifications: Increase fluid intake, limit sodium, incorporate lemon 2. Atrophic Vaginitis - Continue vaginal estradiol 11/12/24-- 84-year-old female presenting with dysuria and urinary tract symptoms. Initially evaluated on October 25, 2024, for these issues, imaging showed bilateral nephrolithiasis with the largest stone measuring 3 mm. The patient reported improvement in urination about a month ago before dysuria returned. Dysuria is primarily characterized by a burning sensation during urination. There is also a report of transient hematuria about a month or two ago. She mentioned experiencing fecal incontinence for more than two months, for which a GI special ist was previously consulted. She has undergone a hysterectomy. Her son is actively participating in her care. Urinary Symptoms Review - Dysuria with burning sensation - Transient hematuria reported once, about a month or two ago - Previous improvement in urination reported about a month ago - Recurrent irritated voiding symptoms Results: Office Cystoscopy: findings--no suspicious bladder lesions 10/25/24-- 84-year-old female presenting with urinary symptoms and nephrolithiasis. Her previous emergency room visit due to urinary difficulty led to catheterization and CAT scans identifying bilateral kidney stones, the largest being 3 mm. The catheter was temporary, and she currently reports no requirement for pads or noticeable urinary incontinence, but there remains some discomfort during urination. Following a previous hysterectomy, she currently retains one ovary. She has been advised to increase hydration to aid stone passage. Urinalysis from the visit was negative, though a cystoscopy is planned to further investigate ongoing urinary symptoms. Urinary Symptoms Review - Experiences irritative voiding symptoms - Previously had difficulty urinating, required catheterization - Bladder discomfort when urinating - Encouraged to drink more water - Does not require pads for urinary incontinence - No significant urinary retention issues currently - History of catheter use, no current catheter necessary Results - Imaging (CT): Bilateral kidney stones, largest measuring 3 mm - Labs (Urinalysis): Negative [facility] Medical History Osteoporosis (~2007) Tubular adenoma of colon (~2019) Post-menopausal Left arm swelling Swelling of lymph node Cardiac pacemaker in situ (~2018) Sick sinus syndrome Insomnia Degenerative joint disease Nocturnal leg cramps Dementia without behavioral disturbance GERD (gastroesophageal reflux disease) Constipation Vitamin D deficiency Neuropathy Vitamin B12 deficiency Epilepsy (~1998) Anemia Sinus bradycardia Pure hypercholesterolemia Diabetes mellitus Surgical History History of endoscopy History of ankle surgery (~2011) History of partial gastrectomy History of colonoscopy History of pacemaker (~2018) History of hysterectomy Family History Father Medical history unknown Mother No problems noted. Daughter No problems noted. Son No problems noted. 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 Current occupational exposures/hazards: No Cognitive needs: No Hearing needs: No Vision needs: Yes Review of Systems Const All systems reviewed & are unremarkable except as noted in HPI and below Reports no additional complaints Eyes Reports no additional complaints ENT Reports no additional complaints Card Reports no additional complaints Resp Reports no additional complaints GI Reports no additional complaints Reports as per HPI Musc Reports no additional complaints Skin/Breast Reports system reviewed and no additional complaints, except as documented Neuro Reports no additional complaints Psych Reports no additional complaints Endo Reports no additional complaints Deonte/Lymph Reports no additional complaints Aller/Immun Reports no additional complaints Results Reviewed Results Reviewed: Date of Service: 05/09/25 EXAMINATION: US KIDNEY BILATERAL HISTORY: R39.9 - Unspecified symptoms and signs involving the genitourinary system TECHNIQUE: Real-time grayscale ultrasound imaging of the kidneys was performed and images were reviewed. COMPARISON: Correlation is made with a CT of the abdomen without contrast dated 10/10/2024. FINDINGS: Right kidney: The right kidney measures 8.9 x 3.3 x 3.7 cm. Renal parenchymal echotexture and thickness are normal. There are no masses. Multiple nonobstructing calculi measuring up to 4 mm in size as seen in the midportion of the kidney and at the lower pole. There is no hydronephrosis. Left Kidney: The left kidney measures 8.7 x 3.6 x 3.6 cm. Renal parenchymal echotexture and thickness are normal. There are no masses. Multiple nonobstructing calculi measuring up to 4 mm in size and noted at the upper and lower poles. There is no hydronephrosis. IMPRESSION: Bilateral nephrolithiasis as described. No hydronephrosis. Date of Service: 05/09/25 EXAMINATION: US KIDNEY BILATERAL HISTORY: R39.9 - Unspecified symptoms and signs involving the genitourinary system TECHNIQUE: Real-time grayscale ultrasound imaging of the kidneys was performed and images were reviewed. COMPARISON: Correlation is made with a CT of the abdomen without contrast dated 10/10/2024. FINDINGS: Right kidney: The right kidney measures 8.9 x 3.3 x 3.7 cm. Renal parenchymal echotexture and thickness are normal. There are no masses. Multiple nonobstructing calculi measuring up to 4 mm in size as seen in the midportion of the kidney and at the lower pole. There is no hydronephrosis. Left Kidney: The left kidney measures 8.7 x 3.6 x 3.6 cm. Renal parenchymal echotexture and thickness are normal. There are no masses. Multiple nonobstructing calculi measuring up to 4 mm in size and noted at the upper and lower poles. There is no hydronephrosis. IMPRESSION: Bilateral nephrolithiasis as described. No hydronephrosis. Date of Service: 10/10/24 EXAMINATION: CT ABDOMEN AND PELVIS WITHOUT CONTRAST CLINICAL INFORMATION: Lower abdominal pain. Constipation. COMPARISON: CT dated June 11, 2018. TECHNIQUE: Multidetector volumetric imaging was performed from the superior aspect of the liver through the pubic symphysis. Sagittal and coronal reformatted images were obtained on the technologist's workstation. This CT examination was performed using dose optimization techniques as appropriate, variously including the following: *Automated exposure control *Adjustment of mA and/or kV according to patient size (this includes techniques or standardized protocols for targeted exams where dose is matched to indication/reason for exam; i.e. extremities or head) *Use of iterative reconstruction technique DLP: 235 mGy centimeters. FINDINGS: Limited examination of the intra-abdominal organs and vascular structures due to lack of IV contrast. LUNG BASES: Centrilobular emphysematous changes with the minimal peripheral honeycombing. Elevated leads in the right heart chambers from a pacemaker. Postsurgical changes at the gastroesophageal junction. LIVER, GALLBLADDER, AND BILIARY TREE: Liver measures 15 cm with a nodular surface. No pericholecystic fluid collection or gallbladder wall thickening. No intrahepatic or extrahepatic biliary ductal dilatation. PANCREAS: No peripancreatic fluid collection. No main pancreatic ductal dilatation. SPLEEN: 6 cm. ADRENAL GLANDS: No nodular lesions. KIDNEYS AND URETERS: Nonobstructing less than 3 mm renal calculi, both pelvicalyceal system. Extrarenal pelvis bilaterally. No hydronephrosis. BLADDER: Fluid-filled. GASTROINTESTINAL TRACT: Abundant stool within the large intestine. Questionable small intestine fecal sign. No pneumatosis intestinalis. No pneumoperitoneum. No ascites. No intestinal obstruction pattern. No gross wall thickening. I see a tubular structure that may correspond to the appendix. ABDOMINAL WALL: No gross umbilical hernia. LYMPH NODES: No gross lymphadenopathy, retroperitoneum. VASCULAR: Throughout the abdominal aorta wall and iliac arteries without gross aneurysm. Calcifications in the distal splenic artery with the questionable small splenic aneurysm, thrombosis. PELVIC VISCERA: Inadequate evaluation. OSSEOUS STRUCTURES: Osteopenia versus osteoporosis. S-shaped curvature of the thoracolumbar spine. Multilevel thoracolumbar spondylosis. No acute fracture or gross listhesis. Bilateral nonobstructing nephrolithiasis. No intestinal obstruction pattern. Assessment & Plan Assessment & Plan (1) Dysuria: Code(s): R30.0 - Dysuria Category: Medical (2) Kidney stone: Code(s): N20.0 - Calculus of kidney Category: Medical (3) Atrophic vaginitis: Code(s): N95.2 - Postmenopausal atrophic vaginitis Category: Medical (4) Bilateral kidney stones: Code(s): N20.0 - Calculus of kidney Category: Medical Plan Plan 1. Bilateral Renal Calculi - Continue monitoring with CT stone protocol in nine months - Dietary modifications: Increase fluid intake, limit sodium, incorporate lemon 2. Atrophic Vaginitis - Continue vaginal estradiol Orders: Orders CT kidney stone 9 Months N20.0 - Calculus of kidney Patient Instructions: The patient had an opportunity to ask questions regarding treatment plan. The patient expressed understanding and agreement with the above treatment plan. The patient is aware they should contact our office by phone for worsening of their current condition or the appearance of new symptoms. Compliance is encouraged with any medications and followup testing that is ordered. It is a privilege to be allowed the opportunity to participate in the urologic care of your patient. If you have any questions or concerns regarding treatment for the above conditions please do not hesitate to contact me. The office telephone contact is [phone]. This note is constructed in part using voice recognition software. While every effort has been made to ensure accuracy melt supervisor errors may have been included. Yours sincerely, Per Sanchez MD Scribe Plan - Not visible on output: Patient was informed and verbally consented to the use of an ambient scribe for clinic note documentation during this visit. Coding Level of Care Code Est Pt Level 4 (57285) Diagnoses Dysuria R30.0 Kidney stone N20.0 Atrophic vaginitis N95.2 Bilateral kidney stones N20.0
--- OUTSIDE RECORDS SUMMARY | 2025-05-16 11:12 | XMS_ITS | Clinical Summary ---
Author Organization [facility] [address] [place] [address] [place] [phone] Phone Care Team Providers Care Fluxer Name Role Phone Cuate Oscar MD Primary Care Provider + [phone] Allergies Active Allergy Reactions Criticality Noted Date [...] Problems Problem Noted Date Diagnosed Date Hyperparathyroidism ([facility] V24) 01/02/2024 Age-related osteoporosis wit [...] EST Appointment Bone Density - Elle Matias [place], [place] [phone] 07/21/2025 11:00 AM EST Office [facility] [place] [address] [facility] [place] [phone] Marta Milian PA [address] [place], [place] Health Maintenance Due Date Last Done [...] complete this topic Insurance MEDICARE Care Teams Fluxer Relationship Specialty Start Date End Date Cuate Oscar MD [address] [place] [address] Aide Grimaldo [place] PCP - General Internal Medicine 11/11/21
--- OUTSIDE RECORDS SUMMARY | 2025-05-16 11:12 | XMS_ITS | Clinical Summary ---
Author Organization [facility] Address [address] [place] [address] Care Team Providers Care Crabber Name Role Phone Unavailable Primary Care Provider [...]
== END 2025-05-16 10:58 | disposition home or self-care (01) ==
LOC: HO.HUSH 10:02
PROVIDERS: PCP Internal Medicine; Visit Provider Urology
DX: R30.0 Dysuria (principal); N20.0 Calculus of kidney; N95.2 Postmenopausal atrophic vaginitis; R39.9 Unspecified symptoms and signs involving the genitourinary system
CPT/HCPCS: 99214

== ENCOUNTER → 2025-05-16 10:01 | Outpatient (BNVA) | payer MEDICARE, SELFPAY | PROVIDERS: PCP Internal Medicine; Visit Provider Urology | DX: R30.0 Dysuria (principal); N20.0 Calculus of kidney; N95.2 Postmenopausal atrophic vaginitis | CPT/HCPCS: 81003; 99212 ==

== ENCOUNTER → 2025-05-24 23:59 | Outpatient (BNV) | payer MEDICARE, SELFPAY ==
--- NOTE | 2025-05-28 12:24 | MHC.OFFVIS ---
Intake Visit Reasons: Remote Device Check- Medtronic Allergies Penicillins Allergy (Intermediate, Verified 05/16/25 10:16) RASH [facility] Medical History Osteoporosis (~2007) Tubular adenoma of colon (~2019) Post-menopausal Left arm swelling Swelling of lymph node Cardiac pacemaker in situ (~2018) Sick sinus syndrome Insomnia Degenerative joint disease Nocturnal leg cramps Dementia without behavioral disturbance GERD (gastroesophageal reflux disease) Constipation Vitamin D deficiency Neuropathy Vitamin B12 deficiency Epilepsy (~1998) Anemia Sinus bradycardia Pure hypercholesterolemia Diabetes mellitus Surgical History History of endoscopy History of ankle surgery (~2011) History of partial gastrectomy History of colonoscopy History of pacemaker (~2018) History of hysterectomy Family History Father Medical history unknown Mother No problems noted. Daughter No problems noted. Son No problems noted. 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 Pacemaker function is adequate [id number] Cardiac Device Interrogation, pacemaker Procedure code (CPT) selection complete Assessment & Plan Assessment & Plan (1) Cardiac pacemaker in situ: Onset Date: ~2018 Comment: (Medtronic DCPP - placed 12/2018 - pocket revision 10/2021) Code(s): Z95.0 - Presence of cardiac pacemaker Category: Medical Plan: See above Coding Level of Care Code Procedure Only Diagnoses Cardiac pacemaker in situ Z95.0 CPT Codes Cardiac Device Check - Cardiac Device 12: [id number] Cardiac Device Interrogation, pacemaker ([id number])
== END ==
PROVIDERS: PCP Internal Medicine; Visit Provider Internal Medicine Cardiovascular Disease
DX: Z45.018 Encounter for adjustment and management of other part of cardiac pacemaker (principal)
CPT/HCPCS: 93294

== ENCOUNTER 2025-05-31 09:44 | Inpatient (IN) | payer MEDICARE, SELFPAY ==
--- NOTE | ~2025-05-31 | XR_ITS ---
EXAMINATION: XR CHEST CLINICAL INFORMATION: Pna worsening COMPARISON: Chest radiograph on May 31, 2025. Chest CT on May 31, 2025. TECHNIQUE: Frontal view of the chest was obtained. FINDINGS: Devices/Tubes/Lines: Dual lead pacemaker Lungs: Low lung volumes. Apparent mild worsening of the focal patchy opacity in the right upper lobe and left upper lobe may be exacerbated by the low lung volumes. Pleura: No pleural effusion or pneumothorax. Heart/Mediastinum: Cardiomediastinal silhouette is unchanged. Bones/Soft Tissues: No acute findings. XR/XR chest 1V IMPRESSION: Low lung volumes contribute to apparent mild worsening of the known pneumonia of the right upper and left lower lobes. Electronically signed by: Olegario Baker MD 06/05/2025 05:30 PM EDT
--- NOTE | ~2025-05-31 | CT_ITS ---
CLINICAL HISTORY: fall, head strike, pain CT cervical spine without contrast Comparison: CT/SR - CT CERVICAL SPINE WITHOUT IV CONTRAST - 05/06/24 11:34 EDT Findings: Vertebral alignment is within normal limits. There is degenerative change. There is stable possible disc bulging at level of C3-C4. No acute fractures or dislocations. No acute findings on limited view of the intracranial contents. No cervical fluid collections or masses. No consolidation or effusion at the lung apices. IMPRESSION: No acute findings. Stable possible disc bulging at the level of C3-C4. This document has been electronically signed by: Sumi Lanier MD on 05/31/2025 13:13:22
--- NOTE | ~2025-05-31 | XR_ITS ---
CLINICAL HISTORY: cough 1 view chest x-ray. Comparison: CT/REG/SR - CT CHEST WO IV CON - 05/31/25 10:52 EDT CR - XR CHEST 1V - 02/06/25 22:49 EDT Findings: The patient is rotated toward the left, mildly limiting this exam. Subtle interstitial prominence identified throughout the bilateral lungs with mild ill-defined right upper lobe opacities. No pneumothorax or pleural effusion. Heart size is at the upper limits of normal. Left subclavian cardiac pacemaker device in place. Dextrocurvature present at the thoracic spine. Surgical clips are identified near the gastroesophageal junction. Impression: 1. Mildly limited examination related to suboptimal patient positioning. There are mild ill-defined right upper lobe opacities which may represent pneumonia given the prior chest CT findings. The previously demonstrated left lower lobe opacities are not well visualized on this exam. This document has been electronically signed by: Hong Sosa MD on 06/01/2025 00:17:45
--- NOTE | ~2025-05-31 | CT_ITS ---
CLINICAL HISTORY: left sided rib pain CT chest without contrast Comparison: CT/REG/TN/SR - CT CHEST WO IV CON - 06/02/22 17:04 EDT Findings: The heart is normal size. Atherosclerosis calcification of the coronary arteries. Pacemaker. The visualized thyroid and mediastinum are unremarkable. Subpleural reticular and ground-glass opacity. There are area of opacity in the right upper lobe and left lower lobe. Left kidney stone. Degenerative changes of the spine. No displaced acute left rib fracture. IMPRESSION: No evidence of displaced acute rib fracture. Areas of opacity of the right upper lobe and left lower lobe concerning for pneumonia. Imaging follow-up is recommended to confirm resolution. Additional findings as above. This document has been electronically signed by: Sumi Lanier MD on 05/31/2025 13:35:53
--- NOTE | ~2025-05-31 | CT_ITS ---
CLINICAL HISTORY: fall, head strike, pain CT Brain without contrast Comparison: CT/SR - CT HEAD WITHOUT IV CONTRAST - 05/20/24 11:44 EDT FINDINGS: Cortical sulci: There is diffuse prominence of the cortical sulci compatible with age-related atrophy. Ventricles: Normal for age Brain parenchyma: There is patchy lucency throughout the deep white matter indicating chronic microvascular leukomalacia. Extra axial spaces: Normal Posterior Fossa: Normal Extracranial soft tissues: Normal Additional abnormality: None IMPRESSION: Age-related atrophy with chronic microvascular leukomalacia. No hemorrhage, mass effect, or acute findings identified. This document has been electronically signed by: Sumi Lanier MD on 05/31/2025 13:06:15
[2025-05-31 09:52] VITALS: BP 126/60; BP 134/53; PULSE 84; PULSE 86; RESP 14; TEMP 36.9; O2SAT 94; O2SAT 95; BMI 17.9
[2025-05-31 10:01] VITALS: BP 134/53; PULSE 84; RESP 14; TEMP 36.9; O2SAT 95
--- NOTE | 2025-05-31 10:15 | PC.NURSE ---
FAYE from home. Maori speaking, edi coordinator utilized. Patient rolled out of bed and landed on the floo on left side. Patient c/o complete left sided pain rated 10/10 but ribs seem to hurt the most. +headstrike (left side) +LOC unsure of downtime. Denies thinners, SOB, N/V. Eyes PERRLA. Patient in C-collar +CMS, limited ROM Provider in to see patient Plan of care on going
--- OUTSIDE RECORDS SUMMARY | 2025-05-31 10:19 | XMS_ITS | Clinical Summary ---
Author Organization [facility] Address [address] [place] [address] Care Team Providers Care Recreation Center Director Name Role Phone Unavailable Primary Care Provider [...]
--- OUTSIDE RECORDS SUMMARY | 2025-05-31 10:19 | XMS_ITS | Clinical Summary ---
Author Organization [facility] [address] [place] [address] [place] [phone] Phone Care Team Providers Care Park Activities Coordinator Name Role Phone Cuate Oscar MD Primary Care Provider + [phone] Allergies Active Allergy Reactions Criticality Noted Date [...] day if needed for dizziness. 4 Active alendronate (FOSAMAX) 70 mg tablet TAKE 1 TABLET BY MOUTH EVERY 7 DAYS 12 tablet 1 5 Active Active Problems Problem Noted Date Diagnosed Date Hyperparathyroidism ([facility] V24) 01/02/2024 Age-related osteoporosis wit hout current [...] AM EST Appointment Bone Density - Elle [address] [place] [phone] 07/21/2025 11:00 AM EST Office Visit Endocrinology - [place] [address] [place] [phone] Marta Milian PA [address] [place] [address] Health Maintenance Due Date Last Done Comments [...] complete this topic Insurance MEDICARE Care Teams Park Activities Coordinator Relationship Specialty Start Date End Date Cuate Oscar MD [address] [place] [address] Dr Aide Grimaldo [place] PCP - General Internal Medicine 11/11/21
--- NOTE | 2025-05-31 10:42 | ED_ITS ---
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 Mode of arrival: EMS Limitations: language barrier History of Present Illness ED Provider: HPI Narrative: 85-year-old woman, reports rolling out of bed, she was sleeping when it happened, endorses left ribcage pain unsure of the head strike, she endorsed she had LOC, not on blood thinners, unsure what time of the night that happened unlikely she fell asleep she reports that she was ambulatory after the fall Related Data Home Medications ?Medication ?Instructions ?Recorded ?Confirmed latanoprost 0.005 % eye drops 1 drp ophthalmic (eye) B EDTIME 12/30/21 05/16/25 alendronate 70 mg tablet 70 mg PO MO 09/15/23 5 donepezil 5 mg tablet 5 mg PO BEDTIME 06/06/24 levetiracetam 500 mg tablet 500 mg PO BID 06/06/24 gabapentin 300 mg capsule 300 mg PO BID 07/03/2405/16 Previous Rx's ?Medication ?Instructions ?Recorded bisacodyl 5 mg tablet,delayed 10 mg (2 x 5 mg) PO BEDT LORI PRN 07/06/23 release (Dulcolax (bisacodyl)) constipation 30 days #1 0 tabs hydrocortisone 2.5 % topical cream 1 appl AR Q8-12H #3 0 grams 05/08/24 with perineal applicator nut.tx.gluc.intol,lac-free,soy See Rx Instructions .Ro [place] 05/24/24 (Glucerna Therapeutic Nutrition .COMPLEX 30 days #90 m ultiple units oral liquid) COMPRESSION STOCKINGS - knee-high #2 ea 07/05/24 (medium compression) ferrous sulfate 325 mg (65 mg 325 mg PO DAILY 90 days #90 tabs 08/06/24 iron) tablet acetaminophen 500 mg capsule 500 mg PO Q6H PRN fever o r pain 10/10/24 #30 caps estradiol 0.01% (0.1 mg/gram) See Rx Instructions vagi nal DAILY 11/12/24 vaginal cream (Estrace) #42.5 grams cyanocobalamin (vitamin B-12) 1,000 mcg PO DAILY #90 c aps 12/18/24 1,000 mcg capsule metformin 500 mg tablet 500 mg PO BID 90 days #180 t abs 01/28/25 atorvastatin 40 mg tablet 40 mg PO BEDTIME 90 days #90 tabs 02/14/25 polyethylene glycol 3350 17 17 g PO BID 90 days #3,060 grams 02/27/25 gram/dose oral powder (Miralax) docusate sodium 100 mg capsule 100 mg PO BID PRN for c onstipation 03/31/25 #90 caps omeprazole 20 mg capsule,delayed 20 mg PO DAILY #90 ca ps 03/31/25 release meclizine 12.5 mg tablet 12.5 mg PO TID PRN dizziness #90 04/16/25 tabs cholecalciferol (vitamin D3) 50 50 mcg PO BID #60 tabs 04/17/25 mcg (2,000 unit) tablet (Vitamin D3) tizanidine 2 mg tablet 2 mg PO BEDTIME muscle cramp s 30 04/25/25 days #30 tabs ciclopirox 0.77 % topical 1 appl topical BID Onychomyc osis 6 05/07/25 suspension months #6.6 mL Allergies Allergy/AdvReac Type Severity Reaction Status Date / Time Penicillins Allergy Intermediate RASH Verified 05/31/25 09:55 Review of Systems 2 Constitutional: Constitutional: Reports as per HPI [facility] Past Medical History Medical History Osteoporosis (~2007) Tubular adenoma of colon (~2019) Post-menopausal Left arm swelling Swelling of lymph node Cardiac pacemaker in situ (~2018) Sick sinus syndrome Insomnia Degenerative joint disease Nocturnal leg cramps Dementia without behavioral disturbance GERD (gastroesophageal reflux disease) Constipation Vitamin D deficiency Neuropathy Vitamin B12 deficiency Epilepsy (~1998) Anemia Sinus bradycardia Pure hypercholesterolemia Diabetes mellitus Surgical History History of endoscopy History of ankle surgery (~2011) History of partial gastrectomy History of colonoscopy History of pacemaker (~2018) History of hysterectomy Family History Family History Father Medical history unknown Mother No problems noted. Daughter No problems noted. Son No problems noted. Other Substance use disorder Social History Social History Household Members: None Housing: House Are you a primary student career development specialist to a significant other at home: No Do you presently have visiting nurse or other home services: No Alcohol intake: never Patient Tobacco Use Status: Former Tobacco user Tobacco use type: Cigarette Smoked in Last 30 Days: No e-Cigarette/Vaping Use: Never Used Second Hand Smoke Exposure: No Use of substances other than those prescribed or required for medical reasons: No Advance Directives: Yes Advance Directives on File: Yes Advance Directives Date on File: 10/03/24 Do you have a plan to hurt others: No Plan service: No Current occupational status: retired Current occupation: [employer] Current occupational exposures/hazards: No Cognitive needs: No Hearing needs: No Vision needs: Yes Physical Exam 2 Vital Signs: Vital Signs: Last Vital Signs Temp 98.4 F 05/31/25 10:01 Pulse 84 05/31/25 10:01 Resp 14 05/31/25 10:01 BP 134/53 L 05/31/25 10:01 Pulse Ox 95 05/31/25 10:01 O2 Del Method Room Air 05/31/25 10:01 BMI result Body Mass Index 17.9 Const: Other: General: ?Appears of stated age, cachectic appearing ? ?PERRLA, EOMI, MMM, no facial trauma ? Neck: No tenderness along the spine full range of motion ? ?CV: S1-S2, tenderness along left ribcage no subcutaneous emphysema, no bruising ? ?Resp: ?No wheezing rales rhonchi no stridor moving air well ? Abd: ?Bowel sounds are present, no tenderness no rebound no rigidity ? ?MSK: FROM, strength 5/5 all extremities ? Skin: Warm, dry, intact, no cuts no bruising to the back ? ?Neuro: ?Alert and oriented x3, moving upper and lower extremities symmetrically, no obvious facial asymmetry noted, cranial nerves 2-12 intact Medications Administered Discontinued Medications Generic Name Dose Route Start Last Admin Trade Name Freq PRN Reason Stop Dose Admin Acetaminophen 975 mg 05/31/25 11:12 05/31/25 11:21 Acetaminophen 325 Mg Tablet PO 05/31/25 11:13 975 mg ONCE ONE Administration Oxycodone HCl 5 mg 05/31/25 11:12 05/31/25 11:21 Oxycodone Hcl Immed Release 5 Mg Tablet PO 05/31/25 11:13 5 mg ONCE ONE Administration Medical Decision Making Medical Decision Making [facility] Narrative: 11:17 AM 05/31/2025 (Dr. Mike Ziegler): Fit-appearing woman presenting with roll out of bed, examination of the head and neck and body without any evidence of trauma no bruising, there was no evidence that she spent hours on the ground her back has no ecchymotic areas we will obtain imaging to make sure there is no head or neck injury or rib fractures, we will medicate for pain we will assess for ambulatory ability, given the fact that she was not sure what happened I will obtain additional blood work EKGs CBC CK 1:44 PM 05/31/2025 (Dr. Mike Ziegler): Patient has had no cough, no lung exam findings to suspect pneumonia as noted on CT, no leukocytosis, resolution with this can be done on outpatient basis, more importantly there were no underlying rib fractures, I spoke to her son who is at bedside he is healthcare proxy states mom is DNR DNI, and he would like rehab for her Differential Diagnosis Differential Diagnoses: The differential diagnosis associated with the presentation includes (Head injury, neck injury, rib fractures, DIETER, rhabdomyolisis) Admission/Observation Consideration of admission/observation: Escalation of care including admission/observation considered Lab Data [facility] Lab Attestation statement: I reviewed the patient's lab results. 05/31/25 11:38 05/31/25 11:38 Labs: Lab Results 05/31/25 Range/Units 11:38 WBC 9.1 (4.8-10.8) X10*3/uL RBC 3.84 L (4.20-5.50) X10*6/uL Hgb 11.6 L (12.0-16.0) g/dl Hct 35.6 L (37.0-47.0) % MCV 92.7 (80.0-98.0) fL MCH 30.2 (27.0-33.0) pg MCHC 32.6 (31.0-35.0) g/dl RDW 14.8 (11.0-16.0) % Plt Count 194 (160-400) X10*3/uL MPV 11.7 (9.4-12.3) fL Immature Gran % (Auto) 0.8 H (0.0-0.4) % Neut % (Auto) 71.1 (45-73) % Lymph % (Auto) 18.1 L (20-40) % [place] % (Auto) 9.7 (2-11) % Eos % (Auto) 0.1 (0-4) % Baso % (Auto) 0.2 (0-2) % Lymph # (Auto) 1.7 (1.2-4.9) X10*3/uL [place] # (Auto) 0.9 (0.1-1.2) X10*3/uL Eos # (Auto) 0.0 (0.0-0.4) X10*3/uL Baso # (Auto) 0.0 (0.0-0.2) X10*3/uL Abs Immat Gran (auto) 0.07 H (0.00-0.03) X10*3/uL Absolute Neuts (auto) 6.5 (2.0-8.3) x10*3/uL Absolute Nucleated RBC 0.000 (0.0-0.012) X10*3/uL Nucleated RBC % (auto) 0.0 (0.0-0.2) /100WBC Sodium 138 (135-145) mmol/L Potassium 4.2 D (3.3-5.1) mmol/L Chloride 110 H (96-108) mmol/L Carbon Dioxide 19 L (22-29) mmol/L Anion Gap 13 (12-20) BUN 16 (9-16) mg/dL Creatinine 0.74 (0.5-1.4) mg/dL Estim Creat Clear Calc 37.1 Estimated GFR > 60 Random Glucose 103 (60-115) mg/dL Calcium 8.8 (8.4-10.2) mg/dL Total Creatine Kinase 43 (26-140) U/L Independent Interpretation I performed an independent interpretation of an: EKG (64 beats per minute otherwise normal ECG without dysrhythmia, AV percy blocks or ST-T changes to suspect underlying ACS, my independent interpretation) Radiology Impression Discussion of test interpretation with radiology: I have reviewed the radiologist's reading. (Chronic changes nothing new, see my comment regarding CT report of chest: No evidence of displaced acute rib fracture. Areas of opacity of the right upper lobe and left lower lobe concerning for pneumonia. Imaging follow-up is recommended to confirm resolution. Additional findings as above.) Independent Historian Clinical information obtained from an independent historian. History obtained from or confirmed by: Other (son HCP) Prescription Management I considered prescription management with: Pain Medication Discharge Plan Discharge Clinical Impression: Failure to thrive in adult, Chest wall contusion Prescriptions: No Action hydrocortisone 2.5 % cream with perineal applicator 1 appl AR Q8-12H Qty: 30 2RF Glucerna Therapeutic Nutrition Liquid See Rx Instructions .ROUTE .COMPLEX 30 Days Qty: 90 5RF Rx Instructions: 1 can orally 3 times a day with meals; ferrous sulfate 325 mg (65 mg iron) tablet 325 mg PO DAILY 90 Days Qty: 90 1RF cyanocobalamin (vitamin B-12) 1,000 mcg capsule 1,000 mcg PO DAILY Qty: 90 1RF metformin 500 mg tablet 500 mg PO BID 90 Days Qty: 180 3RF atorvastatin 40 mg tablet 40 mg PO BEDTIME 90 Days Qty: 90 1RF docusate sodium 100 mg capsule 100 mg PO BID PRN (Reason: for constipation) Qty: 90 1RF omeprazole 20 mg capsule,delayed release(DR/EC) 20 mg PO DAILY Qty: 90 1RF meclizine 12.5 mg tablet 12.5 mg PO TID PRN (Reason: dizziness) Qty: 90 0RF cholecalciferol (vitamin D3) [Vitamin D3] 50 mcg (2,000 unit) tablet 50 mcg PO BID Qty: 60 1RF acetaminophen 500 mg capsule 500 mg PO Q6H PRN (Reason: fever or pain) Qty: 30 0RF alendronate 70 mg tablet 70 mg PO MO latanoprost 0.005 % drops 1 drp ophthalmic (eye) BEDTIME bisacodyl [Dulcolax (bisacodyl)] 5 mg tablet,delayed release (DR/EC) 10 mg PO BEDTIME PRN (Reason: constipation) 30 Days Qty: 10 1RF Rx Instructions: to use if no bowel movement for 2-3 days gabapentin 300 mg capsule 300 mg PO BID donepezil 5 mg tablet 5 mg PO BEDTIME levetiracetam 500 mg tablet 500 mg PO BID (DME) COMPRESSION STOCKINGS - knee-high (medium compression) small See Rx Instructions .Route .MEDSUPPLY Qty: 2 0RF Rx Instructions: As directed estradiol [Estrace] 0.01 % (0.1 mg/gram) cream See Rx Instructions vaginal DAILY Qty: 42.5 2RF Rx Instructions: apply a pea sized amount to fingertip and appy cream vaginally at bedtime vaginally daily; tizanidine 2 mg tablet 2 mg PO BEDTIME 30 Days Qty: 30 3RF ciclopirox 0.77 % suspension 1 appl topical BID 180 Days Qty: 6.6 3RF Rx Instructions: Applied to fungal toenail daily. Remove build-up at the end of the week. polyethylene glycol 3350 [Miralax] 17 gram/dose powder 17 g PO BID 90 Days Qty: 3060 1RF Print Language: Dutch
--- NOTE | 2025-05-31 11:12 | ECG_ITS ---
Test Reason : FALL Blood Pressure : */* mmHG Vent. Rate : 64 BPM Atrial Rate : 64 BPM P-R Int : 148 ms QRS Dur : 66 ms QT Int : 366 ms P-R-T Axes : * 47 30 degrees QTcB Int : 377 ms Atrial-paced rhythm Abnormal ECG When compared with ECG of 06-Feb-2025 22:15, Electronic atrial pacemaker has replaced Junctional rhythm Referred By: Mike Ziegler Electronically Signed By: ALBERTINA PENG MD
[2025-05-31] MEDS: oxyCODONE HCl Immed Release 5 MG TABLET PO (11:21)
[2025-05-31 11:43] LABS: Hematocrit 35.6 % (37.0-47.0); Hemoglobin 11.6 g/dl (12.0-16.0); Imm Gran Abs Auto 0.07 X10*3/uL (0.00-0.03); Imm Gran Pct Auto 0.8 % (0.0-0.4); Lymphocytes Absolute Auto 1.7 X10*3/uL (1.2-4.9); MANUAL DIFF FLAG NO; Mean Corpuscular HGB Conc 32.6 g/dl (31.0-35.0); Mean Corpuscular Hemoglobin 30.2 pg (27.0-33.0); Mean Corpuscular Volume 92.7 fL (80.0-98.0); NRBC Abs Auto 0.000 X10*3/uL (0.0-0.012); NRBC Pct Auto 0.0 /100WBC (0.0-0.2); Platelet Count 194 X10*3/uL (160-400); Red Blood Count 3.84 X10*6/uL (4.20-5.50); White Blood Count 9.1 X10*3/uL (4.8-10.8)
[2025-05-31 11:56] LABS: Anion Gap 13 (12-20); Blood Urea Nitrogen 16 mg/dL (9-16); Calcium 8.8 mg/dL (8.4-10.2); Carbon Dioxide 19 mmol/L (22-29); Chloride 110 mmol/L (96-108); Creatinine Clr Calc Pharmacy 37.1; Estimated Glomerular Filt Rate > 60; Potassium 4.2 mmol/L (3.3-5.1); Sodium 138 mmol/L (135-145)
[2025-05-31 17:48] VITALS: BP 134/53; PULSE 84; RESP 14; TEMP 36.9; O2SAT 95
--- NOTE | 2025-05-31 18:43 | PHA.MEDREC ---
Pharmacy Consult ? Medication Reconciliation Pharmacy has completed the medication reconciliation.
[2025-05-31 22:02] VITALS: BP 129/42; PULSE 62; RESP 16; TEMP 37.1; O2SAT 97
--- NOTE | 2025-05-31 23:11 | PC.NURSE ---
pt coughing, provider made aware. covid and flu swabs and CXR ordered
[2025-06-01 00:17] LABS: COVID-19 Test Negative (Negative); IDNOW Serial# 152EDE1D; IDNOW Serial# 16C4AD1C; Influenza B2 Negative (Negative)
--- NOTE | 2025-06-01 01:01 | PC.NURSE ---
pt calling out for help, time clock inspector used, pt stating she has been trying to call her family but they are not answering, informed pt of the time, 0100. pt thought her family was here. pt given luana rafi and pudding per request. assist to commode. pt resting comfortably, no other needs or complaints at this time. call rico w/in reach, phone placed on bedside table.
[2025-06-01 03:30] VITALS: BP 111/47; PULSE 64; RESP 18; TEMP 37.5; O2SAT 97
[2025-06-01 06:00] VITALS: BP 121/53; PULSE 65; RESP 16; TEMP 36.9; O2SAT 96
[2025-06-01] MEDS: Ferrous Sulfate 324 MG TABLET.DR PO (06:29)
--- NOTE | 2025-06-01 07:53 | PC.NURSE ---
Message sent to pharmacy requesting Keppra, Ceftin and Pysillium as not loaded in pyxis. Will admin on receipt.
[2025-06-01 10:02] LABS: Glucose, Whole Blood 152 mg/dL (60-115)
--- NOTE | 2025-06-01 11:16 | MHC.EDTECH ---
performed ADL's care on patient. patient is an extensive assist to the commode. gave patient a total bed bath. changed patient bedding ,and gave patient fresh hospital gown. nurse aware
[2025-06-01] MEDS: Brimonidine Tartrate 0.2% Oph 5 ML BOTTLE 1 DROP EYE-BOTH ×2 (13:10→20:22)
[2025-06-01] MEDS: Psyllium seed 3.7 GM PACKET PO (13:10)
--- NOTE | 2025-06-01 13:43 | MHC.CM.PN ---
CM RECEIVED CM CONSULT FROM ED PROVIDER EDNA VICTORIA, PT W/PNA AND FALLS AT HOME, CM MET W/PT WHO GAVE PERMISSION TO FOLLOW-UP W/SON/HCP JEVON WHO PT LIVES WITH. PT HAS A WALKER AT HOME SHE USES IF SHE FEELS WEEK HOWEVER TYPICALLY DOES NOT USE IT, SHE HAS 3 LIP AND GATE BUILDER HRS PER WK THROUGH AN AGENCY AND 2 HRS FOR SHOWERING AND THE OTHER HOUR FOR HOUSECLEANING, JEVON REQUESTING MORE HOURS AND INSTRUCTED TO CONTACT PT'S PCP DR. HYDE FOR ORDERS FOR AGENCY, PT/JEVON BOTH DO NOT RECALL NAME OF AGENCY. JEVON REQUESTING REFERRAL FOR ACUTE REHABS HOWEVER WAS TOLD PT WILL BE DECLINED D/T NOT MTG ADMISSION CRITERIA, REFERRAL ALSO PLACED TO [facility] D/T DELAY IN PT SERVICES [facility]. PCP/HCP ON FILE VERIFIED.
[2025-06-01 17:41] VITALS: BP 101/54; PULSE 64; RESP 18; TEMP 36.5; O2SAT 97
[2025-06-01] MEDS: Latanoprost 0.005 % Ophth Sol 2.5 ML DROPS 1 DROP EYE-BOTH (20:22)
[2025-06-02 05:55] VITALS: BP 111/55; PULSE 78; RESP 16; TEMP 37.1; O2SAT 96
[2025-06-02 09:25] VITALS: BP 111/54; PULSE 93; RESP 16; TEMP 36.8; O2SAT 93
[2025-06-02] MEDS: Psyllium seed 3.7 GM PACKET PO (09:26)
[2025-06-02] MEDS: Brimonidine Tartrate 0.2% Oph 5 ML BOTTLE 1 DROP EYE-BOTH ×2 (09:30→21:25)
[2025-06-02 10:53] VITALS: BP 111/54; PULSE 93; O2SAT 93
--- NOTE | 2025-06-02 10:55 | PC.NURSE ---
Pt alert and answering questions appropriately. Breathing even and unlabored. Pt took all her morning meds whole with no issues, ate small amount of her breakfast. Pt requested the ducolax this morning, did have + effect, BM. Pt was able to walk to the bathroom with walker and PT. No new complaints at this time. Plan of care ongoing.
--- NOTE | 2025-06-02 11:11 | MHC.EDTECH ---
Assisted patient with personal hygiene and back to bed with help from Physical Therapy.
[2025-06-02 13:21] LABS: Hematocrit 36.4 % (37.0-47.0); Hemoglobin 11.5 g/dl (12.0-16.0); Imm Gran Abs Auto 0.11 X10*3/uL (0.00-0.03); Imm Gran Pct Auto 0.9 % (0.0-0.4); Lymphocytes Absolute Auto 1.6 X10*3/uL (1.2-4.9); Mean Corpuscular HGB Conc 31.6 g/dl (31.0-35.0); Mean Corpuscular Hemoglobin 30.3 pg (27.0-33.0); Mean Corpuscular Volume 96.0 fL (80.0-98.0); NRBC Abs Auto 0.000 X10*3/uL (0.0-0.012); NRBC Pct Auto 0.0 /100WBC (0.0-0.2); Platelet Count 260 X10*3/uL (160-400); Red Blood Count 3.79 X10*6/uL (4.20-5.50); White Blood Count 11.9 X10*3/uL (4.8-10.8)
--- NOTE | 2025-06-02 13:21 | MHC.CM.PN ---
THIS CM RECEIVED CALL FROM PTS SON JEVON, HE IS CONCERNED ABOUT HIS MOTHER COMING HOME. PT EVALUATED PT AND THEY ARE RECOMMENDING STR. THIS CM DISCUSSED THIS WITH JEVON, HE STATES HE WOULD WANT HER TO GO TO STR. THIS CM EXPLAINED THAT THE PT IS NOT CURRENTLY ADMITTED INPATIENT AND THEREFOR DOESN'T HAVE A QUALIFYING STAY PER MEDICARE GUIDELINES. THIS CM ASKED JEVON IS THEY HAVE FUNDS TO PRIVATELY PAY FOR STR, HE STATED THEY DO NOT. JEVON CANNOT UNDERSTAND WHY SHE HASN'T BEEN ADMITTED, SINCE HE STATES SHE IS VERY WEAK AND HAS PNEUMONIA. THIS CM REACHED OUT TO ED PROVIDER TO MAKE THEM AWARE OF THE SONS CONCERNS. JEVON COULDN'T TAKE HER HOME TODAY HE WAS GOING TO VISIT A NIECE WHO IS ON HOSPICE AND NOT DOING WELL THIS AFTERNOON. IF PTS CONDITION REMAINS THE SAME AND SHE IS NOT ADMITTED, PLAN WILL BE FOR JEVON TO TAKE PT HOME TOMORROW WITH [facility].
[2025-06-02 13:22] LABS: MANUAL DIFF FLAG NO
[2025-06-02 14:42] LABS: Alanine Aminotransferase 17 U/L (0-31); Albumin Level 3.4 g/dL (3.5-5.0); Alkaline Phosphatase 68 U/L (39-117); Anion Gap 14 (12-20); Aspartate Amino Transferase 35 U/L (5-31); Blood Urea Nitrogen 23 mg/dL (9-16); Calcium 8.8 mg/dL (8.4-10.2); Carbon Dioxide 21 mmol/L (22-29); Chloride 109 mmol/L (96-108); Creatinine Clr Calc Pharmacy 28.0; Estimated Glomerular Filt Rate 54; Magnesium 1.7 mg/dL (1.6-2.6); Potassium 3.9 mmol/L (3.3-5.1); Sodium 140 mmol/L (135-145); Total Protein 6.8 g/dL (6.5-8.0)
--- NOTE | 2025-06-02 16:33 | P.HPHOSP_ITS ---
History of Present Illness Date of Service: 06/02/25 Chief Complaint: Cough 85 year old women who presented to the ED after a fall with head strike on 05/31/2025. Patient head CT, cervical spine CT and chest CTA all negative for any acute abnormalities. The plan was for patient to be evaluated by case management for short-term rehab placement so she was on observation in the ER. She then developed a cough and chest x-ray showed a pneumonia and she was started on antibiotics. Due to her age and other comorbidities it was thought that patient should be admitted to inpatient for treatment of acute pneumonia. She was not noted to have hypoxia, no leukocytosis or fever noted. Patient denied chest pain, shortness of breath patient did report a cough no nausea, vomiting or diarrhea. Patient will be admitted for further management and treatment of acute pneumonia. Review of Systems 2 Review of Systems: Denies any recent fever chills or decrease in appetite respiratory see HPI cardiovascular denied chest pain gastrointestinal denies any dysphagia abdominal pain nausea vomiting or diarrhea genitourinary denies any dysuria frequency or hematuria musculoskeletal denies any joint pain or swelling neuropsych denies any weakness or seizures all other systems reviewed are negative [facility] Medical History Osteoporosis (~2007) Tubular adenoma of colon (~2019) Post-menopausal Left arm swelling Swelling of lymph node Cardiac pacemaker in situ (~2018) Sick sinus syndrome Insomnia Degenerative joint disease Nocturnal leg cramps Dementia without behavioral disturbance GERD (gastroesophageal reflux disease) Constipation Vitamin D deficiency Neuropathy Vitamin B12 deficiency Epilepsy (~1998) Anemia Sinus bradycardia Pure hypercholesterolemia Diabetes mellitus Family History Father Medical history unknown Mother No problems noted. Daughter No problems noted. Son No problems noted. Other Substance use disorder Surgical History History of endoscopy History of ankle surgery (~2011) History of partial gastrectomy History of colonoscopy History of pacemaker (~2018) History of hysterectomy Social History Household Members: None Housing: House Are you a primary career development counselor to a significant other at home: No Do you presently have visiting nurse or other home services: No Alcohol intake: never Patient Tobacco Use Status: Former Tobacco user Tobacco use type: Cigarette Smoked in Last 30 Days: No e-Cigarette/Vaping Use: Never Used Second Hand Smoke Exposure: No Use of substances other than those prescribed or required for medical reasons: No Advance Directives: Yes Advance Directives on File: Yes Advance Directives Date on File: 10/03/24 Do you have a plan to hurt others: No Plan service: No Current occupational status: retired 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 Current occupational exposures/hazards: No Cognitive needs: No Hearing needs: No Vision needs: Yes Meds Allergies Allergy/AdvReac Type Severity Reaction Status Date / Time Penicillins Allergy Intermediate RASH Verified 05/31/25 09:55 Active Medications: Current Medications Acetaminophen (Acetaminophen 325 Mg Tablet) 975 mg PO RQ6H PRN PRN Reason: Pain, Moderate(Pain Scale 4-6) Last Admin: 06/01/25 20:22 Dose: 975 mg Acetaminophen (Acetaminophen Oral Liquid 650 Mg/20.3 Ml Solution) 500 mg PO Q6H PRN PRN Reason: fever or pain Acetaminophen (Acetaminophen 325 Mg Tablet) 650 mg PO Q6H PRN PRN Reason: Pain, Mild 1-3,fever,headache Albuterol Sulfate (Albuterol Sulfate (0.083%) 2.5 Mg/3 Ml Vial.Neb) 2.5 mg INHALE RQ4H PRN PRN Reason: wheezing Atorvastatin Calcium (Atorvastatin Calcium 40 Mg Tablet) 40 mg PO BEDTIME [facility] Last Admin: 06/01/25 20:23 Dose: 40 mg Bisacodyl (Bisacodyl 5 Mg Tablet.Dr) 10 mg PO BEDTIME PRN PRN Reason: Constipation Last Admin: 06/02/25 09:26 Dose: 10 mg Brimonidine Tartrate (Brimonidine Tartrate 0.2% Oph 5 Ml Bottle) 1 drop EYE- BOTH BID [facility] Last Admin: 06/02/25 09:30 Dose: 1 drop Calcium Carbonate (Calcium Carbonate 750 Mg Tab.Chew) 750 mg PO Q4H PRN PRN Reason: Heartburn Ceftriaxone Sodium (Ceftriaxone Sodium 1 Gm Vial) 1 gm IVPUSH Q24H [facility] Cefuroxime Axetil (Cefuroxime Axetil 500 Mg Tablet) 500 mg PO BID [facility] Last Admin: 06/02/25 09:27 Dose: 500 mg Cyanocobalamin (Cyanocobalamin (Vitamin B-12) 1,000 Mcg Tablet) 1,000 mcg PO TUTH [facility] Dextrose (Dextrose 50 % 25 Gm/50 Ml Syringe) 25 gm IVPUSH Q15M PRN; Protocol PRN Reason: per Hypoglycemia Standing Ord. Ferrous Sulfate (Ferrous Sulfate 324 Mg Tablet.) 324 mg PO SUTUWETHFRSA [facility] Last Admin: 06/01/25 06:29 Dose: 324 mg Gabapentin (Gabapentin 300 Mg Capsule) 300 mg PO BID [facility] Last Admin: 06/02/25 09:28 Dose: 300 mg Glucose (Glucose Gel 15 Gm Gel..Gram.) 15 gm PO Q15M PRN; Protocol PRN Reason: per Hypoglycemia Standing Ord. Guaifenesin (Guaifenesin 100 Mg/5 Ml 5 Ml Liquid) 5 ml PO Q4H PRN PRN Reason: Cough Heparin Sodium (Porcine) (Heparin Sodium,Porcine 5,000 Unit/Ml Vial) 5,000 unit SUBCUT Q12H [facility] Azithromycin 500 mg/ Sodium (Chloride) 250 mls @ 125 mls/hr IV Q24H [facility] Insulin Human Lispro (Insulin Lispro 100 Unit/Ml 3 Ml Vial) 0 unit SUBCUT QIDACHS [facility]; Protocol Latanoprost (Latanoprost 0.005 % Ophth Afia 2.5 Ml Drops) 1 drop EYE-BOTH BEDTIME [facility] Last Admin: 06/01/25 20:22 Dose: 1 drop Levetiracetam (Levetiracetam 500 Mg Tablet) 500 mg PO BID [facility] Last Admin: 06/02/25 09:28 Dose: 500 mg Magnesium Hydroxide (Milk Of Magnesia 30 Ml Oral.Susp) 30 ml PO DAILY PRN PRN Reason: Constipation Meclizine HCl (Meclizine Hcl 12.5 Mg Tablet) 12.5 mg PO BID PRN PRN Reason: dizziness Melatonin (Melatonin 3 Mg Tablet) 6 mg PO BEDTIME PRN PRN Reason: Insomnia Metformin HCl (Metformin Hcl 500 Mg Tablet) 500 mg PO BID [facility] Last Admin: 06/02/25 09:28 Dose: 500 mg Non-Formulary Medication (Ciclopirox) 1 appl TOPICAL BID [facility] Non-Formulary Medication (Estradiol [Estrace]) 1 appl VAGINAL BEDTIME [facility] Omeprazole (Omeprazole 20 Mg Capsule.) 20 mg PO BEDTIME [facility] Last Admin: 06/01/25 20:23 Dose: 20 mg Polyethylene Glycol (Polyethylene Glycol 3350 17 Gm Powd.Pack) 17 gm PO DAILY [facility] Last Admin: 06/02/25 09:28 Dose: 17 gm Psyllium Hydrophilic Mucilloid (Psyllium Seed 3.7 Gm Packet) 3.7 gm PO DAILY [facility] Last Admin: 06/02/25 09:26 Dose: 3.7 gm Sodium Chloride (0.9 % Sodium Chloride Flush 3 Ml Syringe) 3 ml IVFLUSH QSHIFT [facility] Vitamin D (Cholecalciferol (Vitamin D3) 25 Mcg Tablet) 50 mcg PO BID [facility] Last Admin: 06/02/25 09:27 Dose: 50 mcg Home Medications ?Medication ?Instructions ?Recorded ?Confirmed ?Last Taken ?Type latanoprost 0.005 % eye drops 1 drp ophthalmic (eye) B EDTIME 12/30/21 05/31/25 05/31/25 History alendronate 70 mg tablet 70 mg PO MO 09/15/23 05/31/25 History levetiracetam 500 mg tablet 500 mg PO BID 06/06/2407/1505/31/25 History gabapentin 300 mg capsule 300 mg PO BID 07/03/2405/3105/31/25 History brimonidine 0.2 % eye drops 1 drp BID 05/31/25 5 05/31/25 History cyanocobalamin (vitamin B-12) 1,000 mcg PO TUTH 05/31/25 05/29/25 History 1,000 mcg capsule estradiol 0.01% (0.1 mg/gram) 1 appl vaginal BEDTIME 1 05/31/25 05/30/25 History vaginal cream (Estrace) ferrous sulfate 325 mg (65 mg 325 mg PO SUTUWETHFRSA 1 05/31/25 05/30/25 History iron) tablet meclizine 12.5 mg tablet 12.5 mg PO BID PRN dizziness 05/31/25 05/31/25 05/31/25 History omeprazole 20 mg capsule,delayed 20 mg PO BEDTIME 05/2105/31/25 05/30/25 History release polyethylene glycol 3350 17 gram 17 g PO DAILY 5 05/31/25 05/31/25 History oral powder packet (Miralax) psyllium 1 packet PO DAILY 05/31/25 1 05/31/25 History Physical Exam 2 Vital Signs and Narrative: Vital Signs: Last Vital Signs Temp 98.3 F 06/02/25 09:25 Pulse 93 06/02/25 10:53 Resp 16 06/02/25 09:25 BP 111/54 L 06/02/25 10:53 Pulse Ox 93 06/02/25 10:53 O2 Del Method Room Air 06/02/25 09:25 BMI result Body Mass Index 17.9 Appearing in no acute distress head is normocephalic atraumatic eyes pupils are PERRLA sclera is anicteric mouth throat mucous membranes are intact and moist neck is supple no lymphadenopathy, no JVD noted lung sounds rhonchi heart regular rate rhythm, clear S1, S2 positive bowel sounds, abdomen is soft, nontender neuro patient is alert x3, no focal deficits Results Labs 06/02/25 12:47 06/02/25 14:21 Labs: Laboratory Results - last 24 hr 06/02/25 06/02/25 12:47 14:21 MCV 96.0 MCH 30.3 MCHC 31.6 RDW 14.6 Plt Count 260 D MPV 11.3 Immature Gran % (Auto) 0.9 H Neut % (Auto) 77.3 H Lymph % (Auto) 13.7 L [place] % (Auto) 7.7 Eos % (Auto) 0.2 Baso % (Auto) 0.2 Lymph # (Auto) 1.6 [place] # (Auto) 0.9 Eos # (Auto) 0.0 Baso # (Auto) 0.0 Abs Immat Gran (auto) 0.11 H Absolute Neuts (auto) 9.2 H Absolute Nucleated RBC 0.000 Nucleated RBC % (auto) 0.0 Anion Gap 14 Estim Creat Clear Calc 28.0 Estimated GFR 54 Random Glucose 174 H Calcium 8.8 Magnesium 1.7 Total Bilirubin 0.6 AST 35 H ALT 17 Alkaline Phosphatase 68 Total Protein 6.8 Albumin 3.4 L Assessment and Plan (1) Pneumonia: Status: Acute Plan 85-year-old woman admitted with acute pneumonia without hypoxia. Patient initially was placed on observation for case management evaluation of likely short-term rehab on 05/31. However today patient developed a cough, chest x-ray was done which showed a pneumonia and she was started on antibiotics. Acute pneumonia without hypoxia IV Rocephin and azithromycin Albuterol as needed Continue supplemental oxygen to keep oxygen saturation greater than 90% Incentive spirometry Fall at home No acute fracture dislocations Physical therapy consultation, likely need short-term rehab History of seizures Continue Keppra Seizure precautions Diabetes mellitus type 2 Sliding scale, metformin ADA diet Normocytic iron-deficiency anemia Continue iron supplementation Hyperlipidemia Continue statin DVT prophylaxis with heparin Full code Quality Stroke Does the patient have a stroke diagnosis?: No VTE Prior VTE?: No VTE Risk Level:: Medical - moderate - high VTE Device Contraindication: Treatment Not Indicated VTE Drug Contraindication: N/A - Med Ordered
[2025-06-02 17:13] LABS: Appearance Urine Clear; Glucose Urine UA Negative (Negative); PH 5.5 (5.0-9.0); Specific Gravity - Urine >= 1.030 (1.005-1.025); UMIC TRIGGER UACC YES
--- NOTE | 2025-06-02 17:40 | PC.NURSE ---
Per provider, blood cultures needed first. Delay in meds
[2025-06-02 17:57] VITALS: BP 109/53; PULSE 94; RESP 20; TEMP 37.5; O2SAT 93
[2025-06-02 18:12] VITALS: TEMP 38.3
--- NOTE | 2025-06-02 18:15 | PC.NURSE ---
Rectal temp taken, 100.9 F. SPO2 on RA 93-94%. Provider updated. PRN tyelnol given. Neg for SOB/ CP.
[2025-06-02 18:24] LABS: UACC Culture Trigger YES
[2025-06-02 20:00] VITALS: BP 98/53; PULSE 69; RESP 15; TEMP 36.9; O2SAT 97
[2025-06-02] MEDS: 0.9 % Sodium Chloride Flush 3 ML SYRINGE IVFLUSH (21:25)
[2025-06-02] MEDS: Latanoprost 0.005 % Ophth Sol 2.5 ML DROPS 1 DROP EYE-BOTH (21:25)
[2025-06-02 22:00] LABS: Glucose, Whole Blood 163 mg/dL (60-115)
[2025-06-03] MEDS: Ferrous Sulfate 324 MG TABLET.DR PO (03:44)
[2025-06-03 04:00] VITALS: BP 98/48; PULSE 60; RESP 16; TEMP 36.3; O2SAT 97
[2025-06-03 04:21] LABS: MANUAL DIFF FLAG NO
[2025-06-03 04:26] LABS: Hematocrit 32.3 % (37.0-47.0); Hemoglobin 10.3 g/dl (12.0-16.0); Imm Gran Abs Auto 0.19 X10*3/uL (0.00-0.03); Imm Gran Pct Auto 1.9 % (0.0-0.4); Lymphocytes Absolute Auto 1.8 X10*3/uL (1.2-4.9); Mean Corpuscular HGB Conc 31.9 g/dl (31.0-35.0); Mean Corpuscular Hemoglobin 30.0 pg (27.0-33.0); Mean Corpuscular Volume 94.2 fL (80.0-98.0); NRBC Abs Auto 0.000 X10*3/uL (0.0-0.012); NRBC Pct Auto 0.0 /100WBC (0.0-0.2); Platelet Count 246 X10*3/uL (160-400); Red Blood Count 3.43 X10*6/uL (4.20-5.50); White Blood Count 10.2 X10*3/uL (4.8-10.8)
[2025-06-03 04:39] LABS: Alanine Aminotransferase 21 U/L (0-31); Albumin Level 3.1 g/dL (3.5-5.0); Alkaline Phosphatase 73 U/L (39-117); Anion Gap 13 (12-20); Aspartate Amino Transferase 41 U/L (5-31); Blood Urea Nitrogen 21 mg/dL (9-16); Calcium 8.3 mg/dL (8.4-10.2); Carbon Dioxide 19 mmol/L (22-29); Chloride 111 mmol/L (96-108); Creatinine Clr Calc Pharmacy 30.4; Estimated Glomerular Filt Rate 60; Magnesium 1.7 mg/dL (1.6-2.6); Potassium 4.3 mmol/L (3.3-5.1); Sodium 139 mmol/L (135-145); Total Protein 6.2 g/dL (6.5-8.0)
--- NOTE | 2025-06-03 05:54 | PC.NURSE ---
Assumed care of patient at 1900. Patient remains in ED OVF awaiting a med surg bed. At beginning of shift, patient febrile with 100.9 temperature, with tylenol already administered. Evening antibiotics administered after blood cultures were drawn. Patient is alert and oriented x 3, can be forgetful. Reports generalized pain 5/10, tylenol administered with effect. She is assist x 1 to bedside commode. Takes meds whole with water. Bed in lowest setting, alarm on, and call gómez within reach.
--- NOTE | 2025-06-03 07:24 | HO.PM.IMPN ---
Subjective Subjective Date of Service: 06/03/25 Interval History: Used control operator flow coat services for this entire interaction. Pt very deconditioned and frail with significant deconditioning and fraility Requested Bedside RN and advised pt to use NC for O2 supplementation Pt reports interval improvement but has very wet cough , educated the pt as to the reason why PNA takes time and even more so in pts with frailty and deconditioing Educated the pt about using Acapella valve and spirometer Pt said she feels warm and very sick, which I reassured her she is on abx for that. Review of Systems Review of Systems: Yes all other systems are reviewed and are negative Physical Exam Exam: Exam: General: AOx3, very frail, elderly , with minimal WOB /accessory muscle use Resp: b/l crackles, audible crackles with wet cough noted CVS: S1, S2, RRR GI: +BS, NT, no distention Skin: Warm, dry Neuro: Motor grossly intact bilaterally Extremities: No edema Psych: Appropriate affect Vital Signs: Vital Signs: Last Vital Signs Temp 97.3 F 06/03/25 04:00 Pulse 60 06/03/25 04:00 Resp 16 06/03/25 04:00 BP 98/48 L 06/03/25 04:00 Pulse Ox 97 06/03/25 04:00 O2 Del Method Room Air 06/03/25 04:00 BMI result Body Mass Index 17.9 Objective Data Active Medications Acetaminophen (Acetaminophen 325 Mg Tablet) 975 mg PO RQ6H PRN PRN Reason: Pain, Moderate(Pain Scale 4-6) Last Admin: 06/03/25 02:29 Dose: 975 mg Documented By: DION Acetaminophen (Acetaminophen Oral Liquid 650 Mg/20.3 Ml Solution) 500 mg PO Q6H PRN PRN Reason: fever or pain Acetaminophen (Acetaminophen 325 Mg Tablet) 650 mg PO Q6H PRN PRN Reason: Pain, Mild 1-3,fever,headache Last Admin: 06/02/25 18:16 Dose: 650 mg Documented By: CLAUDIA Albuterol Sulfate (Albuterol Sulfate (0.083%) 2.5 Mg/3 Ml Vial.Neb) 2.5 mg INHALE RQ4H PRN PRN Reason: wheezing Atorvastatin Calcium (Atorvastatin Calcium 40 Mg Tablet) 40 mg PO BEDTIME [facility] Last Admin: 06/02/25 21:24 Dose: 40 mg Documented By: DION Bisacodyl (Bisacodyl 5 Mg Tablet.) 10 mg PO BEDTIME PRN PRN Reason: Constipation Last Admin: 06/02/25 09:26 Dose: 10 mg Documented By: CLAUDIA Brimonidine Tartrate (Brimonidine Tartrate 0.2% Oph 5 Ml Bottle) 1 drop EYE-BOTH BID [facility] Last Admin: 06/02/25 21:25 Dose: 1 drop Documented By: DION Calcium Carbonate (Calcium Carbonate 750 Mg Tab.Chew) 750 mg PO Q4H PRN PRN Reason: Heartburn Ceftriaxone Sodium (Ceftriaxone Sodium 1 Gm Vial) 1 gm IVPUSH Q24H [facility] Last Admin: 06/02/25 19:35 Dose: 1 gm Documented By: DION Cyanocobalamin (Cyanocobalamin (Vitamin B-12) 1,000 Mcg Tablet) 1,000 mcg PO TUTH [facility] Last Admin: 06/03/25 03:44 Dose: 1,000 mcg Documented By: DION Dextrose (Dextrose 50 % 25 Gm/50 Ml Syringe) 25 gm IVPUSH Q15M PRN; Protocol PRN Reason: per Hypoglycemia Standing Ord. Ferrous Sulfate (Ferrous Sulfate 324 Mg Tablet.) 324 mg PO SUTUWETHFRSA [facility] Last Admin: 06/03/25 03:44 Dose: 324 mg Documented By: DION Gabapentin (Gabapentin 300 Mg Capsule) 300 mg PO BID [facility] Last Admin: 06/02/25 21:24 Dose: 300 mg Documented By: DION Glucose (Glucose Gel 15 Gm Gel..Gram.) 15 gm PO Q15M PRN; Protocol PRN Reason: per Hypoglycemia Standing Ord. Guaifenesin (Guaifenesin 100 Mg/5 Ml 5 Ml Liquid) 5 ml PO Q4H PRN PRN Reason: Cough Heparin Sodium (Porcine) (Heparin Sodium,Porcine 5,000 Unit/Ml Vial) 5,000 unit SUBCUT Q12H [facility] Last Admin: 06/03/25 03:44 Dose: 5,000 unit Documented By: DION Azithromycin 500 mg/ Sodium (Chloride) 250 mls @ 125 mls/hr IV Q24H [facility] Last Infusion: 06/02/25 21:35 Dose: Infused Documented By: DION Insulin Human Lispro (Insulin Lispro 100 Unit/Ml 3 Ml Vial) 0 unit SUBCUT QIDACHS [facility]; Protocol Last Admin: 06/02/25 21:58 Dose: 2 unit Documented By: DION Latanoprost (Latanoprost 0.005 % Ophth Afia 2.5 Ml Drops) 1 drop EYE-BOTH BEDTIME [facility] Last Admin: 06/02/25 21:25 Dose: 1 drop Documented By: DION Levetiracetam (Levetiracetam 500 Mg Tablet) 500 mg PO BID [facility] Last Admin: 06/02/25 21:24 Dose: 500 mg Documented By: DION Magnesium Hydroxide (Milk Of Magnesia 30 Ml Oral.Susp) 30 ml PO DAILY PRN PRN Reason: Constipation Meclizine HCl (Meclizine Hcl 12.5 Mg Tablet) 12.5 mg PO BID PRN PRN Reason: dizziness Melatonin (Melatonin 3 Mg Tablet) 6 mg PO BEDTIME PRN PRN Reason: Insomnia Metformin HCl (Metformin Hcl 500 Mg Tablet) 500 mg PO BID [facility] Last Admin: 06/02/25 21:24 Dose: 500 mg Documented By: DION Non-Formulary Medication (Ciclopirox) 1 appl TOPICAL BID [facility] Non-Formulary Medication (Estradiol [Estrace]) 1 appl VAGINAL BEDTIME [facility] Omeprazole (Omeprazole 20 Mg Capsule.Dr) 20 mg PO BEDTIME [facility] Last Admin: 06/02/25 21:24 Dose: 20 mg Documented By: DION Polyethylene Glycol (Polyethylene Glycol 3350 17 Gm Powd.Pack) 17 gm PO DAILY [facility] Last Admin: 06/02/25 09:28 Dose: 17 gm Documented By: CLAUDIA Psyllium Hydrophilic Mucilloid (Psyllium Seed 3.7 Gm Packet) 3.7 gm PO DAILY [facility] Last Admin: 06/02/25 09:26 Dose: 3.7 gm Documented By: CLAUDIA Sodium Chloride (0.9 % Sodium Chloride Flush 3 Ml Syringe) 3 ml IVFLUSH QSHIFT [facility] Last Admin: 06/02/25 21:25 Dose: 3 ml Documented By: DION Vitamin D (Cholecalciferol (Vitamin D3) 25 Mcg Tablet) 50 mcg PO BID [facility] Last Admin: 06/02/25 21:24 Dose: 50 mcg Documented By: DION Labs 06/03/25 03:35 06/03/25 03:35 Labs: Laboratory Results - last 24 hr 06/02/25 06/02/25 06/02/25 12:47 14:21 16:59 MCV 96.0 MCH 30.3 MCHC 31.6 RDW 14.6 Plt Count 260 D MPV 11.3 Immature Gran % (Auto) 0.9 H Neut % (Auto) 77.3 H Lymph % (Auto) 13.7 L [place] % (Auto) 7.7 Eos % (Auto) 0.2 Baso % (Auto) 0.2 Lymph # (Auto) 1.6 [place] # (Auto) 0.9 Eos # (Auto) 0.0 Baso # (Auto) 0.0 Abs Immat Gran (auto) 0.11 H Absolute Neuts (auto) 9.2 H Absolute Nucleated RBC 0.000 Nucleated RBC % (auto) 0.0 Anion Gap 14 Estim Creat Clear Calc 28.0 Estimated GFR 54 POC Glucose Random Glucose 174 H Calcium 8.8 Magnesium 1.7 Total Bilirubin 0.6 AST 35 H ALT 17 Alkaline Phosphatase 68 Total Protein 6.8 Albumin 3.4 L Urine Color Dark Yellow Urine Appearance Clear Urine pH 5.5 Ur Specific [place] >= 1.030 H Urine Protein 30 (1+) H Urine Glucose (UA) Negative Urine Ketones Trace Urine Blood Negative Urine Nitrite Negative Ur Leukocyte Esterase Small (1+) H Urine RBC 0-2 Urine WBC 6-10 H Ur Squamous Epith Cells 3-5 Urine Bacteria None Seen Hyaline Casts 0-2 06/02/25 06/03/25 21:55 03:35 MCV 94.2 MCH 30.0 MCHC 31.9 RDW 14.6 Plt Count 246 MPV 10.8 Immature Gran % (Auto) 1.9 H Neut % (Auto) 70.3 Lymph % (Auto) 17.2 L [place] % (Auto) 9.6 Eos % (Auto) 0.7 Baso % (Auto) 0.3 Lymph # (Auto) 1.8 [place] # (Auto) 1.0 Eos # (Auto) 0.1 Baso # (Auto) 0.0 Abs Immat Gran (auto) 0.19 H Absolute Neuts (auto) 7.1 Absolute Nucleated RBC 0.000 Nucleated RBC % (auto) 0.0 Anion Gap 13 Estim Creat Clear Calc 30.4 Estimated GFR 60 POC Glucose 163 H Random Glucose 98 Calcium 8.3 L Magnesium 1.7 Total Bilirubin 0.5 AST 41 H ALT 21 Alkaline Phosphatase 73 Total Protein 6.2 L Albumin 3.1 L Urine Color Urine Appearance Urine pH Ur Specific [place] Urine Protein Urine Glucose (UA) Urine Ketones Urine Blood Urine Nitrite Ur Leukocyte Esterase Urine RBC Urine WBC Ur Squamous Epith Cells Urine Bacteria Hyaline Casts Assessment and Plan (1) Sepsis with acute hypoxic respiratory failure: Status: Acute (2) Pneumonia: Status: Acute Plan Pt is a pleasant elderly 85F PMH epilepsy, sick sinus syndrome status post pacer, DM2 , osteoporosis who was BIBA by [facility] 2/2 AMS and unwitnessed fall at home and workup revealed Pna Fall /trauma workup Work up -ve, likely 2/2 sepsis 2/2 pna + fraility in elderly Pna - workup revealed pna, will cont IV abx for now, Mucinex, AV, IC, maintain O2 >92, pulm hygeine SSS s/p PPM Ekg - Paced rhythm, trop , tele DM2 - will rx with ISS to maintain euglycemia OP - fall , asp precautions, pt/ot and SNF vs Home with VNA per pt recs Pt very deconditioned and needs IV abx, high risk of decompensation 2/2 the same. This note is constructed using voice recognition software. While every effort has been made to ensure accuracy, global program director errors may have been included. Quality Stroke Does the patient have a stroke diagnosis?: No VTE Prior VTE?: No VTE Risk Level:: Medical - moderate - high VTE Device Contraindication: Treatment Not Indicated VTE Drug Contraindication: N/A - Med Ordered
[2025-06-03 07:57] LABS: Glucose, Whole Blood 92 mg/dL (60-115)
[2025-06-03] MEDS: Brimonidine Tartrate 0.2% Oph 5 ML BOTTLE 1 DROP EYE-BOTH ×2 (08:49→20:44)
[2025-06-03] MEDS: Psyllium seed 3.7 GM PACKET PO (08:50)
--- NOTE | 2025-06-03 09:05 | PC.NURSE ---
Patient denies any pain. Patient states she has to use the commode.
[2025-06-03 09:18] VITALS: BP 150/56; PULSE 63; RESP 18; TEMP 36.6; O2SAT 97
--- NOTE | 2025-06-03 10:44 | PC.NURSE ---
MD came to speak to patient at bedside with hanger. Patient states she feels sob requested some oxygen for comfort. MD asked to apply oxygen 2l via nasal cannula.
[2025-06-03 11:46] LABS: Glucose, Whole Blood 133 mg/dL (60-115)
--- NOTE | 2025-06-03 12:20 | MHC.CM.PN ---
CM met with Patient and 2 family members at bedside, in ED Over and addressed IMM with her (original was given to Patient and a copy will be placed on the chart). Patient lives in a house with her 2 Sons and Son/HCP/Magdy will transport at sd. Patient uses a walker for mobility and she has a Homemaker. PCP is Dr. Cuate Oscar.
--- NOTE | 2025-06-03 12:52 | MHC.CM.PN ---
pt made inpt 06/02 spoke with son who is requesting [facility] [facility] for snf
[2025-06-03] MEDS: 0.9 % Sodium Chloride Flush 3 ML SYRINGE IVFLUSH (17:26)
[2025-06-03 17:40] LABS: Glucose, Whole Blood 109 mg/dL (60-115)
--- NOTE | 2025-06-03 18:36 | PC.NURSE ---
Patient has been up to commode with assistance multiple times today. Patient is afraid to fall. Patient states she is constipated gave her miralax and psyllium today. Will notify provider for additional orders. Family at bedside most of the day.
[2025-06-03] MEDS: Milk of Magnesia 30 ML ORAL.SUSP PO (18:40)
[2025-06-03 18:56] VITALS: BP 123/65; PULSE 75; RESP 17; O2SAT 100
--- NOTE | 2025-06-03 19:45 | MHC.EDTECH ---
pt one assisted to bedside commode to urinate, quinn care given, pt assisted back into bed, pillows behind buttocks, blankets given, bedside table within reach, bed alarm on
[2025-06-03] MEDS: Latanoprost 0.005 % Ophth Sol 2.5 ML DROPS 1 DROP EYE-BOTH (20:44)
[2025-06-03] MEDS: guaiFENesin 100 MG/5 ML 5 ML LIQUID PO (20:57)
[2025-06-03 21:02] LABS: Glucose, Whole Blood 105 mg/dL (60-115)
--- NOTE | 2025-06-04 02:35 | HO.NURTONUR ---
pt began coughing-RN repositioned pt with tech. RN tigered clinical coordinator to kindly bring pts cough syrup from ED pyxis as there is none here in the overflow pyxis. waiting on delivery to administer.
[2025-06-04] MEDS: guaiFENesin 100 MG/5 ML 5 ML LIQUID PO ×3 (02:59→23:26)
--- NOTE | 2025-06-04 03:04 | HO.NURTONUR ---
pt medicated with prns for cough and back pain per oct.
[2025-06-04 05:26] LABS: MANUAL DIFF FLAG NO
[2025-06-04 05:33] LABS: Hematocrit 30.3 % (37.0-47.0); Hemoglobin 9.6 g/dl (12.0-16.0); Imm Gran Abs Auto 0.18 X10*3/uL (0.00-0.03); Imm Gran Pct Auto 2.4 % (0.0-0.4); Lymphocytes Absolute Auto 1.4 X10*3/uL (1.2-4.9); Mean Corpuscular HGB Conc 31.7 g/dl (31.0-35.0); Mean Corpuscular Hemoglobin 30.0 pg (27.0-33.0); Mean Corpuscular Volume 94.7 fL (80.0-98.0); NRBC Abs Auto 0.000 X10*3/uL (0.0-0.012); NRBC Pct Auto 0.0 /100WBC (0.0-0.2); Platelet Count 285 X10*3/uL (160-400); Red Blood Count 3.20 X10*6/uL (4.20-5.50); White Blood Count 7.4 X10*3/uL (4.8-10.8)
[2025-06-04 05:52] LABS: Alanine Aminotransferase 25 U/L (0-31); Albumin Level 3.0 g/dL (3.5-5.0); Alkaline Phosphatase 64 U/L (39-117); Anion Gap 12 (12-20); Aspartate Amino Transferase 43 U/L (5-31); Blood Urea Nitrogen 20 mg/dL (9-16); Calcium 8.3 mg/dL (8.4-10.2); Carbon Dioxide 20 mmol/L (22-29); Chloride 113 mmol/L (96-108); Creatinine Clr Calc Pharmacy 29.2; Estimated Glomerular Filt Rate 57; Magnesium 2.1 mg/dL (1.6-2.6); Potassium 4.9 mmol/L (3.3-5.1); Sodium 140 mmol/L (135-145); Total Protein 6.3 g/dL (6.5-8.0)
[2025-06-04] MEDS: Ferrous Sulfate 324 MG TABLET.DR PO (06:22)
[2025-06-04 06:28] VITALS: BP 99/46; PULSE 69; RESP 16; TEMP 36.7; O2SAT 100
--- NOTE | 2025-06-04 07:18 | HO.PM.IMPN ---
Subjective Subjective Date of Service: 06/04/25 Interval History: Patient continues to be very weak but thankfully is afebrile, and appears to be improving on IV antibiotics Review of Systems Review of Systems: Yes all other systems are reviewed and are negative Physical Exam Exam: Exam: General: AOx3, very frail, elderly , with minimal WOB /accessory muscle use Resp: b/l crackles, audible crackles and rhonchi with wet cough noted CVS: S1, S2, RRR GI: +BS, NT, no distention Skin: Warm, dry Neuro: Motor grossly intact bilaterally Extremities: No edema Psych: Appropriate affect Vital Signs: Vital Signs: Last Vital Signs Temp 98.1 F 06/04/25 06:28 Pulse 69 06/04/25 06:28 Resp 16 06/04/25 06:28 BP 99/46 L 06/04/25 06:28 Pulse Ox 100 06/04/25 06:28 O2 Del Method Nasal Cannula 06/04/25 06:28 O2 Flow Rate 2 06/04/25 06:28 BMI result Body Mass Index 17.9 Objective Data Active Medications Acetaminophen (Acetaminophen 325 Mg Tablet) 975 mg PO RQ6H PRN PRN Reason: Pain, Moderate(Pain Scale 4-6) Last Admin: 06/04/25 02:59 Dose: 975 mg Documented By: REX Acetaminophen (Acetaminophen Oral Liquid 650 Mg/20.3 Ml Solution) 500 mg PO Q6H PRN PRN Reason: fever or pain Acetaminophen (Acetaminophen 325 Mg Tablet) 650 mg PO Q6H PRN PRN Reason: Pain, Mild 1-3,fever,headache Last Admin: 06/02/25 18:16 Dose: 650 mg Documented By: CLAUDIA Albuterol Sulfate (Albuterol Sulfate (0.083%) 2.5 Mg/3 Ml Vial.Neb) 2.5 mg INHALE RQ4H PRN PRN Reason: wheezing Atorvastatin Calcium (Atorvastatin Calcium 40 Mg Tablet) 40 mg PO BEDTIME [facility] Last Admin: 06/03/25 20:44 Dose: 40 mg Documented By: REX Bisacodyl (Bisacodyl 5 Mg Tablet.) 10 mg PO BEDTIME PRN PRN Reason: Constipation Last Admin: 06/02/25 09:26 Dose: 10 mg Documented By: CLAUDIA Brimonidine Tartrate (Brimonidine Tartrate 0.2% Oph 5 Ml Bottle) 1 drop EYE-BOTH BID [facility] Last Admin: 06/03/25 20:44 Dose: 1 drop Documented By: REX Calcium Carbonate (Calcium Carbonate 750 Mg Tab.Chew) 750 mg PO Q4H PRN PRN Reason: Heartburn Ceftriaxone Sodium (Ceftriaxone Sodium 1 Gm Vial) 1 gm IVPUSH Q24H [facility] Last Admin: 06/03/25 17:27 Dose: 1 gm Documented By: GERA Cyanocobalamin (Cyanocobalamin (Vitamin B-12) 1,000 Mcg Tablet) 1,000 mcg PO TUTH [facility] Last Admin: 06/03/25 03:44 Dose: 1,000 mcg Documented By: DION Dextrose (Dextrose 50 % 25 Gm/50 Ml Syringe) 25 gm IVPUSH Q15M PRN; Protocol PRN Reason: per Hypoglycemia Standing Ord. Ferrous Sulfate (Ferrous Sulfate 324 Mg Tablet.Dr) 324 mg PO SUTUWETHFRSA [facility] Last Admin: 06/04/25 06:22 Dose: 324 mg Documented By: REX Gabapentin (Gabapentin 300 Mg Capsule) 300 mg PO BID [facility] Last Admin: 06/03/25 20:44 Dose: 300 mg Documented By: REX Glucose (Glucose Gel 15 Gm Gel..Gram.) 15 gm PO Q15M PRN; Protocol PRN Reason: per Hypoglycemia Standing Ord. Guaifenesin (Guaifenesin 100 Mg/5 Ml 5 Ml Liquid) 5 ml PO Q4H PRN PRN Reason: Cough Last Admin: 06/04/25 02:59 Dose: 5 ml Documented By: REX Heparin Sodium (Porcine) (Heparin Sodium,Porcine 5,000 Unit/Ml Vial) 5,000 unit SUBCUT Q12H [facility] Last Admin: 06/04/25 06:23 Dose: 5,000 unit Documented By: REX Azithromycin 500 mg/ Sodium (Chloride) 250 mls @ 125 mls/hr IV Q24H [facility] Last Infusion: 06/03/25 20:28 Dose: Infused Documented By: REX Insulin Human Lispro (Insulin Lispro 100 Unit/Ml 3 Ml Vial) 0 unit SUBCUT QIDACHS [facility]; Protocol Last Admin: 06/03/25 21:30 Dose: Not Given Documented By: REX Non-Admin Reason: No Insulin Coverage Latanoprost (Latanoprost 0.005 % Ophth Afia 2.5 Ml Drops) 1 drop EYE-BOTH BEDTIME [facility] Last Admin: 06/03/25 20:44 Dose: 1 drop Documented By: REX Levetiracetam (Levetiracetam 500 Mg Tablet) 500 mg PO BID [facility] Last Admin: 06/03/25 20:57 Dose: 500 mg Documented By: REX Magnesium Hydroxide (Milk Of Magnesia 30 Ml Oral.Susp) 30 ml PO DAILY PRN PRN Reason: Constipation Last Admin: 06/03/25 18:40 Dose: 30 ml Documented By: GERA Meclizine HCl (Meclizine Hcl 12.5 Mg Tablet) 12.5 mg PO BID PRN PRN Reason: dizziness Melatonin (Melatonin 3 Mg Tablet) 6 mg PO BEDTIME PRN PRN Reason: Insomnia Last Admin: 06/03/25 20:44 Dose: 6 mg Documented By: REX Metformin HCl (Metformin Hcl 500 Mg Tablet) 500 mg PO BID [facility] Last Admin: 06/03/25 20:44 Dose: 500 mg Documented By: REX Non-Formulary Medication (Ciclopirox) 1 appl TOPICAL BID [facility] Non-Formulary Medication (Estradiol [Estrace]) 1 appl VAGINAL BEDTIME [facility] Omeprazole (Omeprazole 20 Mg Capsule.Dr) 20 mg PO BEDTIME [facility] Last Admin: 06/03/25 20:44 Dose: 20 mg Documented By: REX Polyethylene Glycol (Polyethylene Glycol 3350 17 Gm Powd.Pack) 17 gm PO DAILY [facility] Last Admin: 06/03/25 08:49 Dose: 17 gm Documented By: GERA Psyllium Hydrophilic Mucilloid (Psyllium Seed 3.7 Gm Packet) 3.7 gm PO DAILY [facility] Last Admin: 06/03/25 08:50 Dose: 3.7 gm Documented By: GERA Sodium Chloride (0.9 % Sodium Chloride Flush 3 Ml Syringe) 3 ml IVFLUSH QSHIFT [facility] Last Admin: 06/04/25 00:07 Dose: Not Given Documented By: REX Non-Admin Reason: Patient Asleep Vitamin D (Cholecalciferol (Vitamin D3) 25 Mcg Tablet) 50 mcg PO BID [facility] Last Admin: 06/03/25 20:44 Dose: 50 mcg Documented By: REX Labs 06/04/25 03:48 06/04/25 03:48 Labs: Laboratory Results - last 24 hr 06/03/25 06/03/25 06/03/25 07:48 11:42 16:48 MCV MCH MCHC RDW Plt Count MPV Immature Gran % (Auto) Neut % (Auto) Lymph % (Auto) [place] % (Auto) Eos % (Auto) Baso % (Auto) Lymph # (Auto) [place] # (Auto) Eos # (Auto) Baso # (Auto) Abs Immat Gran (auto) Absolute Neuts (auto) Absolute Nucleated RBC Nucleated RBC % (auto) Anion Gap Estim Creat Clear Calc Estimated GFR POC Glucose 92 133 H 109 Random Glucose Calcium Magnesium Total Bilirubin AST ALT Alkaline Phosphatase Total Protein Albumin 06/03/25 06/04/25 20:59 03:48 MCV 94.7 MCH 30.0 MCHC 31.7 RDW 14.4 Plt Count 285 MPV 11.0 Immature Gran % (Auto) 2.4 H Neut % (Auto) 69.6 Lymph % (Auto) 18.5 L Grainger % (Auto) 8.4 Eos % (Auto) 0.8 Baso % (Auto) 0.3 Lymph # (Auto) 1.4 Grainger # (Auto) 0.6 Eos # (Auto) 0.1 Baso # (Auto) 0.0 Abs Immat Gran (auto) 0.18 H Absolute Neuts (auto) 5.1 Absolute Nucleated RBC 0.000 Nucleated RBC % (auto) 0.0 Anion Gap 12 Estim Creat Clear Calc 29.2 Estimated GFR 57 POC Glucose 105 Random Glucose 102 Calcium 8.3 L Magnesium 2.1 Total Bilirubin 0.3 AST 43 H ALT 25 Alkaline Phosphatase 64 Total Protein 6.3 L Albumin 3.0 L Microbiology Microbiology Results: Microbiology 06/02/25 19:18 Blood Culture - Preliminary Blood - Venous No growth after 24 hours. 06/02/25 19:18 Blood Culture - Preliminary Blood - Venous No growth after 24 hours. 06/02/25 Unknown Urine Culture - Preliminary Urine clean catch - Clean Catch Midstream No growth to date. Assessment and Plan (1) Sepsis with acute hypoxic respiratory failure: Status: Acute (2) Pneumonia: Status: Acute Plan Pt is a pleasant elderly 85F PMH epilepsy, sick sinus syndrome status post pacer, DM2 , osteoporosis who was BIBA by arvin 2/2 AMS and unwitnessed fall at home and workup revealed Pna Fall /trauma workup Work up -ve, likely 2/2 sepsis 2/2 pna + fraility in elderly Pna - workup revealed pna, will cont IV abx ceftriaxone and azithromycin for now, Mucinex, AV, IC, maintain O2 >92, pulm hygeine. She is pretty frail and severe to switch her to oral antibiotics and needs ongoing IV medication SSS s/p PPM - Ekg - Paced rhythm, trop , tele DM2 - hold home metformin while inpatient, will rx with ISS to maintain euglycemia OP - fall , asp precautions, pt/ot and SNF vs Home with VNA per pt recs Pt very deconditioned and needs IV abx, high risk of decompensation 2/2 the same. This note is constructed using voice recognition software. While every effort has been made to ensure accuracy, student finance advisor errors may have been included. Quality Stroke Does the patient have a stroke diagnosis?: No VTE Prior VTE?: No VTE Risk Level:: Medical - moderate - high VTE Device Contraindication: Treatment Not Indicated VTE Drug Contraindication: N/A - Med Ordered
[2025-06-04 07:48] LABS: Glucose, Whole Blood 107 mg/dL (60-115)
[2025-06-04] MEDS: Brimonidine Tartrate 0.2% Oph 5 ML BOTTLE 1 DROP EYE-BOTH ×2 (09:20→19:39)
[2025-06-04 09:50] VITALS: PULSE 67; RESP 16; O2SAT 98
[2025-06-04] MEDS: Albuterol Sulfate (0.083%) 2.5 MG/3 ML VIAL.NEB INHALE (09:50)
[2025-06-04 13:18] VITALS: BMI 20.5
--- NOTE | 2025-06-04 13:19 | MHC.CLN ---
NUTRITION PATENT HEIGHT ADJUSTED TO 4'8 PER MD OFFICE VISIT 05/07/25 AND PRIOR ADM DOC. BMI=20.5 REVIEW OF WEIGHT HX X 3 MONTHS AND ONE YEAR SHOWS SOME WEIGHT FLUCTUATION BUT OVERALL NO SIGNIFICANT WEIGHT CHANGE. DIET RX:DIABETIC 1800 KCALS. NO ADDITIONAL NUTRITION INTERVENTIONS AT THIS TIME.
[2025-06-04 14:36] VITALS: BP 104/72; PULSE 68; RESP 18; TEMP 36.7; O2SAT 97
[2025-06-04 16:30] VITALS: BMI 18.5
[2025-06-04] MEDS: Flu Vacc TS2025-26(6mo up)/PF 0.5 ML SYRINGE IM (17:02)
[2025-06-04 17:04] LABS: Glucose, Whole Blood 123 mg/dL (60-115)
[2025-06-04] MEDS: 0.9 % Sodium Chloride Flush 3 ML SYRINGE IVFLUSH ×2 (17:11→19:30)
[2025-06-04] MEDS: Milk of Magnesia 30 ML ORAL.SUSP PO (18:08)
[2025-06-04] MEDS: Latanoprost 0.005 % Ophth Sol 2.5 ML DROPS 1 DROP EYE-BOTH (19:39)
[2025-06-04 20:00] VITALS: BP 107/52; PULSE 59; RESP 20; TEMP 36.4; O2SAT 98
[2025-06-04 20:54] LABS: Glucose, Whole Blood 109 mg/dL (60-115)
[2025-06-05] MEDS: Ferrous Sulfate 324 MG TABLET.DR PO (03:40)
[2025-06-05 04:00] VITALS: BP 121/60; PULSE 65; RESP 18; TEMP 36.7; O2SAT 100
[2025-06-05 05:33] LABS: MANUAL DIFF FLAG NO
[2025-06-05 05:37] LABS: Hematocrit 30.3 % (37.0-47.0); Hemoglobin 9.6 g/dl (12.0-16.0); Imm Gran Abs Auto 0.23 X10*3/uL (0.00-0.03); Imm Gran Pct Auto 4.0 % (0.0-0.4); Lymphocytes Absolute Auto 1.3 X10*3/uL (1.2-4.9); Mean Corpuscular HGB Conc 31.7 g/dl (31.0-35.0); Mean Corpuscular Hemoglobin 30.1 pg (27.0-33.0); Mean Corpuscular Volume 95.0 fL (80.0-98.0); NRBC Abs Auto 0.000 X10*3/uL (0.0-0.012); NRBC Pct Auto 0.0 /100WBC (0.0-0.2); Platelet Count 330 X10*3/uL (160-400); Red Blood Count 3.19 X10*6/uL (4.20-5.50); White Blood Count 5.7 X10*3/uL (4.8-10.8)
[2025-06-05 06:06] LABS: Alanine Aminotransferase 23 U/L (0-31); Albumin Level 3.0 g/dL (3.5-5.0); Alkaline Phosphatase 63 U/L (39-117); Anion Gap 13 (12-20); Aspartate Amino Transferase 41 U/L (5-31); Blood Urea Nitrogen 17 mg/dL (9-16); Calcium 8.3 mg/dL (8.4-10.2); Carbon Dioxide 21 mmol/L (22-29); Chloride 113 mmol/L (96-108); Creatinine Clr Calc Pharmacy 31.5; Estimated Glomerular Filt Rate > 60; Magnesium 2.4 mg/dL (1.6-2.6); Potassium 4.8 mmol/L (3.3-5.1); Sodium 142 mmol/L (135-145); Total Protein 6.1 g/dL (6.5-8.0)
[2025-06-05 07:00] VITALS: BP 107/50; PULSE 64; RESP 15; TEMP 36.6; O2SAT 98
[2025-06-05 07:08] LABS: Glucose, Whole Blood 88 mg/dL (60-115)
--- NOTE | 2025-06-05 07:10 | HO.PM.IMPN ---
Subjective Subjective Date of Service: 06/05/25 Interval History: Switching her IV meds to p.o. meds-more likely liquid meds as she is too frail to you intake breathing treatments. Hence switching her to nebulizing treatments She will need some more education in [place] regarding nebulizers and how he adequately use them. She is unable to bring up phlegm, but she is significantly doing better than she presented 3 days ago with our management. Review of Systems Review of Systems: Yes all other systems are reviewed and are negative Physical Exam Exam: Exam: General: AOx3, very frail, elderly , appears very deconditioned and frail, with minimal WOB /accessory muscle use Resp: b/l crackles, audible crackles and rhonchi with wet cough noted, decreased compared to yesterday CVS: S1, S2, RRR GI: +BS, NT, no distention Neuro: Motor grossly intact bilaterally Vital Signs: Vital Signs: Last Vital Signs Temp 97.8 F 06/05/25 07:00 Pulse 64 06/05/25 07:00 Resp 15 06/05/25 07:00 BP 107/50 L 06/05/25 07:00 Pulse Ox 98 06/05/25 07:00 O2 Del Method Nasal Cannula 06/05/25 07:00 O2 Flow Rate 2 06/05/25 04:00 BMI result Body Mass Index 18.5 Objective Data Active Medications Acetaminophen (Acetaminophen 325 Mg Tablet) 975 mg PO RQ6H PRN PRN Reason: Pain, Moderate(Pain Scale 4-6) Last Admin: 06/04/25 17:00 Dose: 975 mg Documented By: TASH Acetaminophen (Acetaminophen Oral Liquid 650 Mg/20.3 Ml Solution) 500 mg PO Q6H PRN PRN Reason: fever or pain Acetaminophen (Acetaminophen 325 Mg Tablet) 650 mg PO Q6H PRN PRN Reason: Pain, Mild 1-3,fever,headache Last Admin: 06/02/25 18:16 Dose: 650 mg Documented By: CLAUDIA Albuterol Sulfate (Albuterol Sulfate (0.083%) 2.5 Mg/3 Ml Vial.Neb) 2.5 mg INHALE RQ4H PRN PRN Reason: wheezing Last Admin: 06/04/25 09:50 Dose: 2.5 mg Documented By: RIDDHI Atorvastatin Calcium (Atorvastatin Calcium 40 Mg Tablet) 40 mg PO BEDTIME [facility] Last Admin: 06/04/25 19:28 Dose: 40 mg Documented By: TASH Bisacodyl (Bisacodyl 5 Mg Tablet.) 10 mg PO BEDTIME PRN PRN Reason: Constipation Last Admin: 06/02/25 09:26 Dose: 10 mg Documented By: CLAUDIA Brimonidine Tartrate (Brimonidine Tartrate 0.2% Oph 5 Ml Bottle) 1 drop EYE-BOTH BID [facility] Last Admin: 06/04/25 19:39 Dose: 1 drop Documented By: TASH Calcium Carbonate (Calcium Carbonate 750 Mg Tab.Chew) 750 mg PO Q4H PRN PRN Reason: Heartburn Ceftriaxone Sodium (Ceftriaxone Sodium 1 Gm Vial) 1 gm IVPUSH Q24H [facility] Last Admin: 06/04/25 16:59 Dose: 1 gm Documented By: TASH Cyanocobalamin (Cyanocobalamin (Vitamin B-12) 1,000 Mcg Tablet) 1,000 mcg PO TUTH [facility] Last Admin: 06/05/25 03:39 Dose: 1,000 mcg Documented By: TASH Dextrose (Dextrose 50 % 25 Gm/50 Ml Syringe) 25 gm IVPUSH Q15M PRN; Protocol PRN Reason: per Hypoglycemia Standing Ord. Ferrous Sulfate (Ferrous Sulfate 324 Mg Tablet.) 324 mg PO SUTUWETHFRSA [facility] Last Admin: 06/05/25 03:40 Dose: 324 mg Documented By: TASH Gabapentin (Gabapentin 300 Mg Capsule) 300 mg PO BID [facility] Last Admin: 06/04/25 19:28 Dose: 300 mg Documented By: TASH Glucose (Glucose Gel 15 Gm Gel..Gram.) 15 gm PO Q15M PRN; Protocol PRN Reason: per Hypoglycemia Standing Ord. Guaifenesin (Guaifenesin 100 Mg/5 Ml 5 Ml Liquid) 5 ml PO Q4H PRN PRN Reason: Cough Last Admin: 06/04/25 23:26 Dose: 5 ml Documented By: TASH Heparin Sodium (Porcine) (Heparin Sodium,Porcine 5,000 Unit/Ml Vial) 5,000 unit SUBCUT Q12H [facility] Last Admin: 06/05/25 03:40 Dose: 5,000 unit Documented By: TASH Azithromycin 500 mg/ Sodium (Chloride) 250 mls @ 125 mls/hr IV Q24H [facility] Last Infusion: 06/04/25 19:19 Dose: Infused Documented By: TASH Insulin Human Lispro (Insulin Lispro 100 Unit/Ml 3 Ml Vial) 0 unit SUBCUT QIDACHS [facility]; Protocol Last Admin: 06/05/25 07:09 Dose: Not Given Documented By: LUCI Non-Admin Reason: No Insulin Coverage Latanoprost (Latanoprost 0.005 % Ophth Afia 2.5 Ml Drops) 1 drop EYE-BOTH BEDTIME [facility] Last Admin: 06/04/25 19:39 Dose: 1 drop Documented By: TASH Levetiracetam (Levetiracetam 500 Mg Tablet) 500 mg PO BID [facility] Last Admin: 06/04/25 19:28 Dose: 500 mg Documented By: TASH Magnesium Hydroxide (Milk Of Magnesia 30 Ml Oral.Susp) 30 ml PO DAILY PRN PRN Reason: Constipation Last Admin: 06/04/25 18:08 Dose: 30 ml Documented By: TASH Meclizine HCl (Meclizine Hcl 12.5 Mg Tablet) 12.5 mg PO BID PRN PRN Reason: dizziness Melatonin (Melatonin 3 Mg Tablet) 6 mg PO BEDTIME PRN PRN Reason: Insomnia Last Admin: 06/04/25 19:28 Dose: 6 mg Documented By: TASH Non-Formulary Medication (Ciclopirox) 1 appl TOPICAL BID [facility] Non-Formulary Medication (Estradiol [Estrace]) 1 appl VAGINAL BEDTIME [facility] Omeprazole (Omeprazole 20 Mg Capsule.Dr) 20 mg PO BEDTIME [facility] Last Admin: 06/04/25 19:28 Dose: 20 mg Documented By: TASH Polyethylene Glycol (Polyethylene Glycol 3350 17 Gm Powd.Pack) 17 gm PO DAILY [facility] Last Admin: 06/04/25 09:21 Dose: 17 gm Documented By: GERA Psyllium Hydrophilic Mucilloid (Psyllium Seed 3.7 Gm Packet) 3.7 gm PO DAILY [facility] Last Admin: 06/04/25 09:21 Dose: Not Given Documented By: GERA Non-Admin Reason: Patient Refused Sodium Chloride (0.9 % Sodium Chloride Flush 3 Ml Syringe) 3 ml IVFLUSH QSHIFT [facility] Last Admin: 06/04/25 19:30 Dose: 3 ml Documented By: TASH Vitamin D (Cholecalciferol (Vitamin D3) 25 Mcg Tablet) 50 mcg PO BID [facility] Last Admin: 06/04/25 19:28 Dose: 50 mcg Documented By: TASH Labs 06/05/25 05:06 06/05/25 05:06 Labs: Laboratory Results - last 24 hr 06/04/25 06/04/25 06/04/25 07:44 16:55 20:49 MCV MCH MCHC RDW Plt Count MPV Immature Gran % (Auto) Neut % (Auto) Lymph % (Auto) [place]herty % (Auto) Eos % (Auto) Baso % (Auto) Lymph # (Auto) [place] # (Auto) Eos # (Auto) Baso # (Auto) Abs Immat Gran (auto) Absolute Neuts (auto) Absolute Nucleated RBC Nucleated RBC % (auto) Anion Gap Estim Creat Clear Calc Estimated GFR POC Glucose 107 123 H 109 Random Glucose Calcium Magnesium Total Bilirubin AST ALT Alkaline Phosphatase Total Protein Albumin 06/05/25 06/05/25 05:06 07:00 MCV 95.0 MCH 30.1 MCHC 31.7 RDW 14.4 Plt Count 330 MPV 10.2 Immature Gran % (Auto) 4.0 H Neut % (Auto) 60.0 Lymph % (Auto) 23.5 Dougherty % (Auto) 10.4 Eos % (Auto) 1.6 Baso % (Auto) 0.5 Lymph # (Auto) 1.3 Dougherty # (Auto) 0.6 Eos # (Auto) 0.1 Baso # (Auto) 0.0 Abs Immat Gran (auto) 0.23 H Absolute Neuts (auto) 3.4 Absolute Nucleated RBC 0.000 Nucleated RBC % (auto) 0.0 Anion Gap 13 Estim Creat Clear Calc 31.5 Estimated GFR > 60 POC Glucose 88 Random Glucose 108 Calcium 8.3 L Magnesium 2.4 Total Bilirubin 0.3 AST 41 H ALT 23 Alkaline Phosphatase 63 Total Protein 6.1 L Albumin 3.0 L Microbiology Microbiology Results: Microbiology 06/02/25 19:18 Blood Culture - Preliminary Blood - Venous No growth after 48 hours. 06/02/25 19:18 Blood Culture - Preliminary Blood - Venous No growth after 48 hours. 06/02/25 Unknown Urine Culture - Final Urine clean catch - Clean Catch Midstream No growth. Assessment and Plan (1) Sepsis with acute hypoxic respiratory failure: Status: Acute (2) Pneumonia: Status: Acute Plan Pt is a pleasant elderly 85F PMH epilepsy, sick sinus syndrome status post pacer, DM2 , osteoporosis who was BIBA by sonn 2/2 AMS and unwitnessed fall at home and workup revealed Pna Fall /trauma workup Work up -ve, likely 2/2 sepsis 2/2 pna + fraility in elderly Pna - workup revealed pna, given that she improved in 3 days, we will switch her antibiotics from IV to p.o. (liquid given her frailty)-even having to give her Tylenol p.o. liquid. That is how frail she appears. Mucinex, AV, IC, maintain O2 >92, pulm hygeine. She is pretty frail. SSS s/p PPM - Ekg - Paced rhythm, trop , tele, thankfully at her normal baseline cardiac conditions. No changes in meds during this hospitalization DM2 - hold home metformin while inpatient as well as, will rx with ISS to maintain euglycemia OP - fall , asp precautions, pt/ot and SNF vs Home with VNA per pt recs Pt very deconditioned (vdbe-vm-wvdokeop protein calorie malnutrition) and she needs at least 1-2 days to demonstrate improvement and tolerance of liquid IV antibiotics and nebulizers. She is unable to adequately use inhalers. This note is constructed using voice recognition software. While every effort has been made to ensure accuracy, dampproofer errors may have been included. Quality Stroke Does the patient have a stroke diagnosis?: No VTE Prior VTE?: No VTE Risk Level:: Medical - moderate - high VTE Device Contraindication: Treatment Not Indicated VTE Drug Contraindication: N/A - Med Ordered
[2025-06-05] MEDS: 0.9 % Sodium Chloride Flush 3 ML SYRINGE IVFLUSH (08:30)
[2025-06-05] MEDS: guaiFENesin 100 MG/5 ML 5 ML LIQUID PO (08:34)
[2025-06-05] MEDS: Brimonidine Tartrate 0.2% Oph 5 ML BOTTLE 1 DROP EYE-BOTH ×2 (08:35→20:26)
[2025-06-05 11:07] LABS: Glucose, Whole Blood 146 mg/dL (60-115)
[2025-06-05 12:13] VITALS: BMI 19.0
--- NOTE | 2025-06-05 15:33 | MHC.CM.PN ---
Addendum entered by Josiane Ely 06/05/25 16:01: HOSPITALIST HAS DECIDED PT WILL REMAIN INPT ONE MORE DAY SON, SNF AND AMBULANCE INFORMED Original Note: PT IS MEDICALLY READY TO DC CM CALLED PTS SON/HCP, JEVON [phone] [facility] REPOR[facility] IS PREFERRED, PT HAS BEEN THERE IN THE PAST BLS TRANSPORT BOOKED FOR 1730 HOURS WITH [facility]
[2025-06-05 16:00] VITALS: BP 87/42; PULSE 62; RESP 18; TEMP 36.1; O2SAT 99
--- NOTE | 2025-06-05 16:06 | ECG_ITS ---
Test Reason : Sepsis Blood Pressure : */* mmHG Vent. Rate : 66 BPM Atrial Rate : 66 BPM P-R Int : * ms QRS Dur : 70 ms QT Int : 376 ms P-R-T Axes : * 49 14 degrees QTcB Int : 394 ms Poor data quality, interpretation may be adversely affected Atrial-paced rhythm Abnormal ECG When compared with ECG of 31-May-2025 11:47, Nonspecific T wave abnormality no longer evident in Anterior leads Referred By: Jamee Florentino Electronically Signed By: Madhu Savage
--- NOTE | 2025-06-05 16:07 | P.EN_ITS ---
Event Note Date of Service: 06/05/25 Event Note: Entire conversation with pt- furniture rental consultant was used. I was notified of low BP with SBP in the 80s, no tachycardia or LOC with her stating she is feeling lightheaded and unwell. promptly went to the pt's bedside and assessed her vitals. Thankfully, she was at her baseline, awake and talking. She is very very frail , to the point of not even able to expectorate her cough. She does have a very roncorous cough and deconditioned (even prior to me conside ring abx - I wanted to change her to liquid abx as she was intolerant of po pill augmentin. She was on IV ceftriaxone, IV Azithromycin the whole hospitalization. PE : Clinically dry Dementia at baseline Edentulous Resp : B/l ronchi - unable to take deep breaths 2/2 deconditioning CVS : PCM site C/D/I , non tender to touch Abd : soft, last BM -yest night, no diarrhea Ext: dry I did a whole PARK INTERPRETIVE SPECIALIST level of workup - CBC, CMP, Mg, Lactic acid, Trop, EKG, CXR and thus far , RRP, Covid swab, rsv swab , gave her wide bolus ringers lactate 1L and cont fluids with 100cc/hr. Within 15-30 mins , she responeded to with BP to 111/68 and Abx were escalated to Lvequin renally dosed (She has Allergy to Penicillin- rash), started vancomycin, cont Azithromycin Thankfully pna - no new consolidation, low lung voleumes redemonstrated , brisk response to fluid resuscitation - I was concerned about her devoloping worsening MF Pna given how she was unable to expectorate the whole hospitalization. She is too frail to even cough up sputum and has PCM (mild-mod- unclear baseline) Her labwork was only remarkable for hyperK for which she was rx with Lokelma 10mg once po (last BM was last night) without EKG changes She was also placed on Tele Pt has been non-hypoxic on RA since D2 of hosp , and responded well to the fluid mx , even b4 abx was escalated. I called her son Magdy who is a publicist himself , who came from work and spoke to him at length in the presence of staff and he reinstated she is DNR/DNI. Met with 2 more sons at bedside and they were very conversant in [place] and helped make her understand that she is getting appropriate care Likely hypovolemia 2/2 suboptimal response in a frail elderly malnourished pt with pna despite adequate IV abx and sepsis mx, not unentirely unexpected given how concerned I was since the time I saw her in ED POA. Plan Cont abx - Levaquin renally dosed, Cont Vanco, if MRSA -ve (DC vanc) Cont IVF NS@ 100cc/hr as she appears to have hyperk HyperK - without EKG changes - Duncan once , repeat CMP in the AM Hypoglycemia protocol DNR/DNI and if clinically worsens , call son HCP Magdy who wants to pursue Hospice/QUANTITATIVE EQUITY HEAD measures b4 escalating care- son to decide in 1-2 days before he escalates care Tele monitoring .I have spent nearly 4pm- 5.30pm managing the pt care without needing escalation of care and involving family members. This note is constructed using voice recognition software. While every effort has been made to ensure accuracy, sewer and cutter finger buff material errors may have been included. Time Spent With Patient Time: Total time managing care of this patient today _70___ minutes including PARK INTERPRETIVE SPECIALIST level of care and coordination with multiple family members.
[2025-06-05 16:08] LABS: Glucose, Whole Blood 117 mg/dL (60-115)
[2025-06-05 16:24] VITALS: O2SAT 100
[2025-06-05 16:25] LABS: ABG HCO3 21 mmol/L (22-26); ABG O2 % Saturation 100.0 %
[2025-06-05 16:41] LABS: Glucose, Whole Blood 105 mg/dL (60-115)
[2025-06-05 16:52] LABS: MANUAL DIFF FLAG NO
[2025-06-05 16:54] LABS: Hematocrit 29.7 % (37.0-47.0); Hemoglobin 9.1 g/dl (12.0-16.0); Imm Gran Abs Auto 0.14 X10*3/uL (0.00-0.03); Imm Gran Pct Auto 2.9 % (0.0-0.4); Lymphocytes Absolute Auto 1.6 X10*3/uL (1.2-4.9); Mean Corpuscular HGB Conc 30.6 g/dl (31.0-35.0); Mean Corpuscular Hemoglobin 29.4 pg (27.0-33.0); Mean Corpuscular Volume 96.1 fL (80.0-98.0); NRBC Abs Auto 0.000 X10*3/uL (0.0-0.012); NRBC Pct Auto 0.0 /100WBC (0.0-0.2); Platelet Count 288 X10*3/uL (160-400); Red Blood Count 3.09 X10*6/uL (4.20-5.50); White Blood Count 4.9 X10*3/uL (4.8-10.8)
[2025-06-05 17:21] LABS: COVID-19 Test Negative (Negative); IDNOW Serial# 08D9AD1C; IDNOW Serial# 55D5AD1C; IDNOW Serial# 58CA691E; Influenza B2 Negative (Negative); Strep A Nucleic Acid Negative (Negative)
[2025-06-05 17:25] LABS: Alanine Aminotransferase 33 U/L (0-31); Albumin Level 2.9 g/dL (3.5-5.0); Alkaline Phosphatase 67 U/L (39-117); Anion Gap 10 (12-20); Aspartate Amino Transferase 52 U/L (5-31); Blood Urea Nitrogen 16 mg/dL (9-16); Calcium 8.6 mg/dL (8.4-10.2); Carbon Dioxide 23 mmol/L (22-29); Chloride 112 mmol/L (96-108); Creatinine Clr Calc Pharmacy 25.0; Estimated Glomerular Filt Rate 55; Magnesium 2.4 mg/dL (1.6-2.6); Potassium 5.7 mmol/L (3.3-5.1); Sodium 139 mmol/L (135-145); Total Protein 5.9 g/dL (6.5-8.0)
[2025-06-05 17:32] LABS: Troponin-I High Sensitivity < 2.7 ng/L (<3.5-17.0)
[2025-06-05 17:42] LABS: Resp Syncy Virus RNA Qual PCR NEGATIVE (Negative); SARS COV2 PCR INHOUSE NEGATIVE (Negative)
--- NOTE | 2025-06-05 18:03 | PHA.PROG ---
Admission Date/Time: June 02, 2025 16:23 Indication: resp inf Weight in k.4 kg Adjusted body weight in Kg: [place] body weight in Kg: Obesity Dosing Indication % IBW: Serum Creatinine - Last 168 Hours 05/31/25 06/02/25 06/03/25 11:38 14:21 03:35 Creatinine 0.74 0.98 0.90 06/04/25 06/05/25 06/05/25 03:48 05:06 16:47 Creatinine 0.94 0.76 0.96 Estimated CrCl and GFR - Last 168 Hours 05/31/25 06/02/25 06/03/25 11:38 14:21 03:35 Estim Creat Clear Calc 37.1 28.0 30.4 Estimated GFR > 60 54 60 06/04/25 06/05/25 06/05/25 03:48 05:06 16:47 Estim Creat Clear Calc 29.2 31.5 25.0 Estimated GFR 57 > 60 55 Vancomycin Loading Dose: 1000 mg x 1 Current Vancomycin Dosing Regimen: 750 mg q24h Vancomycin Monitoring using AUC goal of 400 - 600 range with trough as surrogate marker: predicted auc 467 Date and Time for next Vancomycin Level to be drawn: random 06/06/25 @ 1500 Pharmacist Comments on Vancomycin Plan: keep a close eye on renal fxn, dose based on level Vancomycin dosing will take advantage of [employer] as a clinical decision support tool that uses Bayesian modeling to calculate individual patient's pharmacokinetic parameters and forecast the patient's drug concentration time course with the target goal AUC 24 range of 400 - 600 mg/L/hr.
--- NOTE | 2025-06-05 18:43 | PC.NURSE ---
1556 BP 90/38 pt arousable to name, just stating she doesn't feel good. Dr Florentino notified. Rechecked BP at 1558 85/39. Checked BP manually 78/32. Dr Florentino notified and at bedside. LR bolus hung per . rechecked BP 1630 111/52. EKG ordered and obtained, RSV, COVID, FLU swabs ordered and obtained. Pt currently sitting up in bed alert and states she feels better.
[2025-06-05 20:03] LABS: Glucose, Whole Blood 177 mg/dL (60-115)
[2025-06-05] MEDS: Latanoprost 0.005 % Ophth Sol 2.5 ML DROPS 1 DROP EYE-BOTH (20:26)
[2025-06-05 23:52] VITALS: BP 116/65; PULSE 60; RESP 18; TEMP 36.3; O2SAT 99
[2025-06-06] MEDS: Ferrous Sulfate 324 MG TABLET.DR PO (03:54)
[2025-06-06 04:02] VITALS: BP 112/55; PULSE 60; RESP 18; TEMP 36.2; O2SAT 99
[2025-06-06 06:19] LABS: MANUAL DIFF FLAG NO
[2025-06-06 06:24] LABS: Hematocrit 30.0 % (37.0-47.0); Hemoglobin 9.3 g/dl (12.0-16.0); Imm Gran Abs Auto 0.18 X10*3/uL (0.00-0.03); Imm Gran Pct Auto 4.5 % (0.0-0.4); Lymphocytes Absolute Auto 1.3 X10*3/uL (1.2-4.9); Mean Corpuscular HGB Conc 31.0 g/dl (31.0-35.0); Mean Corpuscular Hemoglobin 30.0 pg (27.0-33.0); Mean Corpuscular Volume 96.8 fL (80.0-98.0); NRBC Abs Auto 0.000 X10*3/uL (0.0-0.012); NRBC Pct Auto 0.0 /100WBC (0.0-0.2); Platelet Count 313 X10*3/uL (160-400); Red Blood Count 3.10 X10*6/uL (4.20-5.50); White Blood Count 4.0 X10*3/uL (4.8-10.8)
[2025-06-06 06:39] LABS: Alanine Aminotransferase 31 U/L (0-31); Albumin Level 2.8 g/dL (3.5-5.0); Alkaline Phosphatase 59 U/L (39-117); Anion Gap 10 (12-20); Aspartate Amino Transferase 47 U/L (5-31); Blood Urea Nitrogen 11 mg/dL (9-16); Calcium 8.3 mg/dL (8.4-10.2); Carbon Dioxide 23 mmol/L (22-29); Chloride 115 mmol/L (96-108); Creatinine Clr Calc Pharmacy 32.4; Estimated Glomerular Filt Rate > 60; Magnesium 2.0 mg/dL (1.6-2.6); Potassium 5.2 mmol/L (3.3-5.1); Sodium 143 mmol/L (135-145); Total Protein 5.8 g/dL (6.5-8.0)
--- NOTE | 2025-06-06 07:13 | HO.PM.IMPN ---
Subjective Subjective Date of Service: 06/06/25 Interval History: Patient is normotensive now with fluid resuscitation. I believe that yesterday's hypotension was likely in the setting of hypovolemic hypotension-with brisk response to fluids hence given that infectious workup extensively has been negative with redemonstration of pneumonia, stable, I feel confident about deescalating antibiotics to p.o. Levaquin and discontinuing fluids. If she continues to improve likely she can be discharged tomorrow to a rehab Patient was eating her breakfast by herself this morning which is much little better since yesterday Review of Systems Review of Systems: Yes all other systems are reviewed and are negative Physical Exam Exam: Exam: General: AOx0, very frail, elderly , appears very deconditioned and frail, with minimal WOB /accessory muscle use She was eating her breakfast and little less deconditioned. Encouraged her to have good p.o. intake Resp: b/l crackles, audible crackles and rhonchi with wet cough noted, decreased compared to yesterday CVS: S1, S2, RRR GI: +BS, NT, no distention Neuro: Motor grossly intact bilaterally Vital Signs: Vital Signs: Last Vital Signs Temp 97.2 F 06/06/25 04:02 Pulse 60 06/06/25 04:02 Resp 18 06/06/25 04:02 BP 112/55 L 06/06/25 04:02 Pulse Ox 99 06/06/25 04:02 O2 Del Method Nasal Cannula 06/06/25 04:02 O2 Flow Rate 2 06/06/25 04:02 BMI result Body Mass Index 19.0 Objective Data Active Medications Acetaminophen (Acetaminophen 325 Mg Tablet) 975 mg PO RQ6H PRN PRN Reason: Pain, Moderate(Pain Scale 4-6) Last Admin: 06/06/25 00:13 Dose: 975 mg Documented By: JJ Acetaminophen (Acetaminophen Oral Liquid 650 Mg/20.3 Ml Solution) 500 mg PO Q6H PRN PRN Reason: fever or pain Atorvastatin Calcium (Atorvastatin Calcium 40 Mg Tablet) 40 mg PO BEDTIME [facility] Last Admin: 06/05/25 20:26 Dose: 40 mg Documented By: JJ Bisacodyl (Bisacodyl 5 Mg Tablet.Dr) 10 mg PO BEDTIME PRN PRN Reason: Constipation Last Admin: 06/02/25 09:26 Dose: 10 mg Documented By: CLAUDIA Brimonidine Tartrate (Brimonidine Tartrate 0.2% Oph 5 Ml Bottle) 1 drop EYE-BOTH BID [facility] Last Admin: 06/05/25 20:26 Dose: 1 drop Documented By: JJ Calcium Carbonate (Calcium Carbonate 750 Mg Tab.Chew) 750 mg PO Q4H PRN PRN Reason: Heartburn Cyanocobalamin (Cyanocobalamin (Vitamin B-12) 1,000 Mcg Tablet) 1,000 mcg PO TUTH [facility] Last Admin: 06/05/25 03:39 Dose: 1,000 mcg Documented By: TASH Dextrose (Dextrose 50 % 25 Gm/50 Ml Syringe) 25 gm IVPUSH Q15M PRN; Protocol PRN Reason: per Hypoglycemia Standing Ord. Ferrous Sulfate (Ferrous Sulfate 324 Mg Tablet.Dr) 324 mg PO SUTUWETHFRSA [facility] Last Admin: 06/06/25 03:54 Dose: 324 mg Documented By: JJ Gabapentin (Gabapentin 300 Mg Capsule) 300 mg PO BID [facility] Last Admin: 06/05/25 20:26 Dose: 300 mg Documented By: JJ Glucose (Glucose Gel 15 Gm Gel..Gram.) 15 gm PO Q15M PRN; Protocol PRN Reason: per Hypoglycemia Standing Ord. Guaifenesin (Guaifenesin 100 Mg/5 Ml 5 Ml Liquid) 5 ml PO Q4H PRN PRN Reason: Cough Last Admin: 06/05/25 08:34 Dose: 5 ml Documented By: LUCI Heparin Sodium (Porcine) (Heparin Sodium,Porcine 5,000 Unit/Ml Vial) 5,000 unit SUBCUT Q12H [facility] Last Admin: 06/06/25 03:54 Dose: 5,000 unit Documented By: JJ Sodium Chloride (Ns) 1,000 mls @ 100 mls/hr IVCONT .Q10H [facility] Last Infusion: 06/06/25 04:01 Dose: Infused Documented By: JJ Levofloxacin (Levaquin) 750 mg in 150 mls @ 100 mls/hr IV Q48H [facility] Last Infusion: 06/05/25 21:33 Dose: Infused Documented By: JJ Vancomycin HCl 750 mg/ Sodium (Chloride) 265 mls @ 265 mls/hr IV Q24H [facility] Sodium Chloride (Ns) 1,000 mls @ 100 mls/hr IVCONT .Q10H [facility] Last Admin: 06/06/25 04:00 Dose: 100 mls/hr Documented By: JJ Insulin Human Lispro (Insulin Lispro 100 Unit/Ml 3 Ml Vial) 0 unit SUBCUT QIDACHS [facility]; Protocol Last Admin: 06/05/25 20:37 Dose: 2 unit Documented By: JJ Latanoprost (Latanoprost 0.005 % Ophth Afia 2.5 Ml Drops) 1 drop EYE-BOTH BEDTIME [facility] Last Admin: 06/05/25 20:26 Dose: 1 drop Documented By: JJ Levetiracetam (Levetiracetam 500 Mg Tablet) 500 mg PO BID [facility] Last Admin: 06/05/25 21:30 Dose: 500 mg Documented By: JJ Magnesium Hydroxide (Milk Of Magnesia 30 Ml Oral.Susp) 30 ml PO DAILY PRN PRN Reason: Constipation Last Admin: 06/04/25 18:08 Dose: 30 ml Documented By: TASH Meclizine HCl (Meclizine Hcl 12.5 Mg Tablet) 12.5 mg PO BID PRN PRN Reason: dizziness Melatonin (Melatonin 3 Mg Tablet) 6 mg PO BEDTIME PRN PRN Reason: Insomnia Last Admin: 06/04/25 19:28 Dose: 6 mg Documented By: TASH Non-Formulary Medication (Ciclopirox) 1 appl TOPICAL BID [facility] Non-Formulary Medication (Estradiol [Estrace]) 1 appl VAGINAL BEDTIME [facility] Omeprazole (Omeprazole 20 Mg Capsule.Dr) 20 mg PO BEDTIME [facility] Last Admin: 06/05/25 21:30 Dose: 20 mg Documented By: JJ Pharmacy Consult (Consult Rx Vancomycin Dosing) 1 each MISCELLANE DAILY PRN PRN Reason: Consult order Polyethylene Glycol (Polyethylene Glycol 3350 17 Gm Powd.Pack) 17 gm PO DAILY [facility] Last Admin: 06/05/25 08:45 Dose: Not Given Documented By: LUCI Non-Admin Reason: loose stools overnight MD aware Psyllium Hydrophilic Mucilloid (Psyllium Seed 3.7 Gm Packet) 3.7 gm PO DAILY [facility] Last Admin: 06/05/25 08:45 Dose: Not Given Documented By: LUCI Non-Admin Reason: loose stools overnight, aware Sodium Chloride (0.9 % Sodium Chloride Flush 3 Ml Syringe) 3 ml IVFLUSH QSHIFT [facility] Last Admin: 06/05/25 23:24 Dose: Not Given Documented By: JJ Non-Admin Reason: IV Running Vitamin D (Cholecalciferol (Vitamin D3) 25 Mcg Tablet) 50 mcg PO BID [facility] Last Admin: 06/05/25 20:26 Dose: 50 mcg Documented By: JJ Labs 06/06/25 05:58 06/06/25 05:58 Labs: Laboratory Results - last 24 hr 06/04/25 06/05/25 06/05/25 11:57 11:01 16:22 MCV MCH MCHC RDW Plt Count MPV Immature Gran % (Auto) Neut % (Auto) Lymph % (Auto) Parke % (Auto) Eos % (Auto) Baso % (Auto) Lymph # (Auto) Parke # (Auto) Eos # (Auto) Baso # (Auto) Abs Immat Gran (auto) Absolute Neuts (auto) Absolute Nucleated RBC Nucleated RBC % (auto) O2 Saturation 100.0 ABG pH at Pt Temp 7.46 H ABG pCO2 at Pt Temp 29 L ABG pO2 at Pt Temp 161 H ABG HCO3 21 L ABG Base Excess (Actual) -1.5 Anion Gap Estim Creat Clear Calc Estimated GFR POC Glucose 117 H 146 H Random Glucose Lactic Acid Calcium Magnesium Total Bilirubin AST ALT Alkaline Phosphatase Troponin I High Sens Total Protein Albumin COVID-19 ([facility]) COVID-19 Clin Com Influenza Type A ([facility]URO) Influenza Type A (PCR) Influenza Type B ([facility]) Influenza Type B (PCR) Influenza A & B Note RSV RNA Qual (PCR) SARS-CoV-2 RNA (RT-PCR) S. pyogenes GrpA [facility] 06/05/25 06/05/25 06/05/25 16:37 16:47 16:55 MCV 96.1 MCH 29.4 MCHC 30.6 L RDW 14.4 Plt Count 288 MPV 9.2 L Immature Gran % (Auto) 2.9 H Neut % (Auto) 52.2 Lymph % (Auto) 32.0 Parke % (Auto) 11.5 H Eos % (Auto) 1.0 Baso % (Auto) 0.4 Lymph # (Auto) 1.6 Parke # (Auto) 0.6 Eos # (Auto) 0.1 Baso # (Auto) 0.0 Abs Immat Gran (auto) 0.14 H Absolute Neuts (auto) 2.6 Absolute Nucleated RBC 0.000 Nucleated RBC % (auto) 0.0 O2 Saturation ABG pH at Pt Temp ABG pCO2 at Pt Temp ABG pO2 at Pt Temp ABG HCO3 ABG Base Excess (Actual) Anion Gap 10 L Estim Creat Clear Calc 25.0 Estimated GFR 55 POC Glucose 105 Random Glucose 109 Lactic Acid 1.5 Calcium 8.6 Magnesium 2.4 Total Bilirubin 0.2 AST 52 H ALT 33 H Alkaline Phosphatase 67 Troponin I High Sens < 2.7 Total Protein 5.9 L Albumin 2.9 L COVID-19 ([facility]ISHA) Negative COVID-19 Clin Com See Note Influenza Type A (ARTURO) Negative Influenza Type A (PCR) NEGATIVE Influenza Type B ([facility]URO) Negative Influenza Type B (PCR) NEGATIVE Influenza A & B Note See Note RSV RNA Qual (PCR) NEGATIVE SARS-CoV-2 RNA (RT-PCR) NEGATIVE S. pyogenes GrpA [facility] Negative 06/05/25 06/06/25 19:46 05:58 MCV 96.8 MCH 30.0 MCHC 31.0 RDW 14.5 Plt Count 313 MPV 9.9 Immature Gran % (Auto) 4.5 H Neut % (Auto) 46.7 Lymph % (Auto) 32.9 Parke % (Auto) 13.4 H Eos % (Auto) 2.0 Baso % (Auto) 0.5 Lymph # (Auto) 1.3 Parke # (Auto) 0.5 Eos # (Auto) 0.1 Baso # (Auto) 0.0 Abs Immat Gran (auto) 0.18 H Absolute Neuts (auto) 1.9 L Absolute Nucleated RBC 0.000 Nucleated RBC % (auto) 0.0 O2 Saturation ABG pH at Pt Temp ABG pCO2 at Pt Temp ABG pO2 at Pt Temp ABG HCO3 ABG Base Excess (Actual) Anion Gap 10 L Estim Creat Clear Calc 32.4 Estimated GFR > 60 POC Glucose 177 H Random Glucose 114 Lactic Acid Calcium 8.3 L Magnesium 2.0 Total Bilirubin 0.3 AST 47 H ALT 31 Alkaline Phosphatase 59 Troponin I High Sens Total Protein 5.8 L Albumin 2.8 L COVID-19 ([facility]ISHA) COVID-19 Clin Com Influenza Type A (ARTURO) Influenza Type A (PCR) Influenza Type B ([facility]URO) Influenza Type B (PCR) Influenza A & B Note RSV RNA Qual (PCR) SARS-CoV-2 RNA (RT-PCR) S. pyogenes GrpA [facility] Assessment and Plan (1) Sepsis with acute hypoxic respiratory failure: Status: Acute (2) Pneumonia: Status: Acute Plan Pt is a pleasant elderly 85F PMH epilepsy, sick sinus syndrome status post pacer, DM2 , osteoporosis who was BIBA by sonn 2/2 AMS and unwitnessed fall at home and workup revealed Pna Acute brief hypovolemic hypotension the evening of 06/05/2025, brisk response to fluid resuscitation with extensive VISCERA WASHER level of infectious workup negative for sepsis. Hence to prevent pulmonary edema we will discontinue it encourage her to have good p.o. intake. Sensitive repeat sepsis workup negative. Fall /trauma workup Work up -ve, likely 2/2 sepsis 2/2 pna + fraility in elderly Pna - workup revealed pna, given that she improved in 3 days, we will switch her antibiotics from IV to p.o. (liquid given her frailty)-even having to give her Tylenol p.o. liquid. That is how frail she appears. Mucinex, AV, IC, maintain O2 >92, pulm hygeine. She is pretty frail. She is unable to adequately use inhalers/might benefit from nebs at dc SSS s/p PPM - Ekg - Paced rhythm, trop , tele, thankfully at her normal baseline cardiac conditions. No changes in meds during this hospitalization DM2 - DC metformin given poor renal func , will rx with ISS to maintain euglycemia OP - fall , asp precautions, pt/ot and SNF vs Home with VNA per pt recs Pt very deconditioned ([id number] protein calorie malnutrition) and if she is clinically better, she can be DC tomorrow or whenever she gets SNF placement to demonstrate improvement and tolerance of liquid IV antibiotics and nebulizers. She is unable to adequately use inhalers/might benefit from nebs at dc This note is constructed using voice recognition software. While every effort has been made to ensure accuracy, risk advisor errors may have been included. Please refer to the note I had yest- VISCERA WASHER level of care without VISCERA WASHER call and good HD response. Quality Stroke Does the patient have a stroke diagnosis?: No VTE Prior VTE?: No VTE Risk Level:: Medical - moderate - high VTE Device Contraindication: Treatment Not Indicated VTE Drug Contraindication: N/A - Med Ordered
[2025-06-06 07:14] VITALS: BP 126/56; PULSE 66; RESP 16; TEMP 36; O2SAT 100
[2025-06-06 07:58] LABS: Glucose, Whole Blood 104 mg/dL (60-115)
[2025-06-06] MEDS: Psyllium seed 3.7 GM PACKET PO (08:19)
[2025-06-06] MEDS: Brimonidine Tartrate 0.2% Oph 5 ML BOTTLE 1 DROP EYE-BOTH ×2 (08:20→20:47)
[2025-06-06 11:16] LABS: Glucose, Whole Blood 121 mg/dL (60-115)
--- NOTE | 2025-06-06 11:38 | P.CDIM_ITS ---
PROVIDER RESPONSE TEXT: To clarify, the appropriate diagnosis supported by the clinical indicators: Moderate protein calorie malnutrition QUERY TEXT: PHYSICIAN'S DOCUMENTATION REQUEST Date of Query: 06/06/2025 09:43 AM EDT Patient Name: Natividad Fenton Admit Date: 06/02/2025 Dear Jamee Florentino MD, A review of the medical record indicates additional documentation may be needed. Please review below and update the documentation accordingly. Documentation includes the diagnosis of malnutrition. Additional clinical indicators from the record include: mild to moderate protein calorie malnutrition noted on 06/05/25 HT : 4'8 WT : 38.4 kg BMI : 19.0 If possible, please provide additional specificity regarding the severity of the malnutrition using the above information: Mild Protein calorie malnutrition Moderate protein calorie malnutrition Other (explain) Clinically unable to determine (explain) Thank you, Melvi Jack RN Use of terms such as suspected, likely, concern for, or probable (associated with a specific diagnosis that is being evaluated, monitored, or treated as if it exists) are acceptable and can be coded in the inpatient setting, when documented at the time of discharge. Please use your independent medical judgment in providing your response. THIS QUERY IS PART OF THE PERMANENT MEDICAL RECORD
[2025-06-06 15:59] VITALS: BP 128/59; PULSE 60; RESP 19; TEMP 36.7; O2SAT 96
[2025-06-06] MEDS: guaiFENesin 100 MG/5 ML 5 ML LIQUID PO ×2 (16:05→23:36)
[2025-06-06 16:38] LABS: Glucose, Whole Blood 135 mg/dL (60-115)
[2025-06-06 20:00] VITALS: BP 139/63; PULSE 69; RESP 20; TEMP 36.5; O2SAT 97
[2025-06-06] MEDS: Latanoprost 0.005 % Ophth Sol 2.5 ML DROPS 1 DROP EYE-BOTH (20:47)
[2025-06-06] MEDS: 0.9 % Sodium Chloride Flush 3 ML SYRINGE IVFLUSH (20:50)
[2025-06-06 21:11] LABS: Glucose, Whole Blood 141 mg/dL (60-115)
[2025-06-06 23:50] VITALS: O2SAT 95
[2025-06-07] VITALS: BP 120/58; PULSE 60; RESP 14; TEMP 36; O2SAT 96
[2025-06-07 03:34] VITALS: BP 131/58; PULSE 78; RESP 16; TEMP 36; O2SAT 95
[2025-06-07] MEDS: Ferrous Sulfate 324 MG TABLET.DR PO (03:40)
[2025-06-07 05:56] LABS: MANUAL DIFF FLAG NO
--- NOTE | 2025-06-07 06:07 | PC.NURSE ---
Pt seen on recliner at start of shift, family was requesting for bowel meds, as pt is having urge to go but unsuccessful. Pt revisted with scheduled meds and tolerated, has scattered fine crackles tolerating RA. Pt was assisted by staff to the BR and was able to move her bowels. Later pt endorsed SOB, noted with worsening crackles and attempting to expectorate, O2 sats at 95% RA, assisted and instructed pt to do incentive spirometry then coughing, was able to cough out phlegm and felt better after.
[2025-06-07 06:16] LABS: Hematocrit 29.0 % (37.0-47.0); Hemoglobin 9.4 g/dl (12.0-16.0); Imm Gran Abs Auto 0.23 X10*3/uL (0.00-0.03); Imm Gran Pct Auto 5.0 % (0.0-0.4); Lymphocytes Absolute Auto 1.4 X10*3/uL (1.2-4.9); Mean Corpuscular HGB Conc 32.4 g/dl (31.0-35.0); Mean Corpuscular Hemoglobin 30.7 pg (27.0-33.0); Mean Corpuscular Volume 94.8 fL (80.0-98.0); NRBC Abs Auto 0.000 X10*3/uL (0.0-0.012); NRBC Pct Auto 0.0 /100WBC (0.0-0.2); Platelet Count 319 X10*3/uL (160-400); Red Blood Count 3.06 X10*6/uL (4.20-5.50); White Blood Count 4.6 X10*3/uL (4.8-10.8)
[2025-06-07 06:20] LABS: Alanine Aminotransferase 32 U/L (0-31); Albumin Level 2.9 g/dL (3.5-5.0); Alkaline Phosphatase 61 U/L (39-117); Anion Gap 12 (12-20); Aspartate Amino Transferase 44 U/L (5-31); Blood Urea Nitrogen 11 mg/dL (9-16); Calcium 8.3 mg/dL (8.4-10.2); Carbon Dioxide 22 mmol/L (22-29); Chloride 113 mmol/L (96-108); Creatinine Clr Calc Pharmacy 35.8; Estimated Glomerular Filt Rate > 60; Magnesium 1.7 mg/dL (1.6-2.6); Potassium 4.5 mmol/L (3.3-5.1); Sodium 142 mmol/L (135-145); Total Protein 5.8 g/dL (6.5-8.0)
[2025-06-07 08:00] VITALS: BP 122/60; PULSE 60; RESP 16; TEMP 37; O2SAT 93
[2025-06-07 08:03] LABS: Glucose, Whole Blood 121 mg/dL (60-115)
--- NOTE | 2025-06-07 08:11 | P.PNIM_ITS ---
Subjective Subjective Date of Service: 06/07/25 Physical Exam 2 Vital Signs: Vital Signs: Last Vital Signs Temp 96.8 F 06/07/25 03:34 Pulse 78 06/07/25 03:34 Resp 16 06/07/25 03:34 BP 131/58 L 06/07/25 03:34 Pulse Ox 95 06/07/25 03:34 O2 Del Method Room Air 06/07/25 03:34 O2 Flow Rate 2 06/06/25 07:14 BMI result Body Mass Index 19.0 Objective Data Active Medications Acetaminophen (Acetaminophen 325 Mg Tablet) 975 mg PO RQ6H PRN PRN Reason: Pain, Moderate(Pain Scale 4-6) Last Admin: 06/06/25 00:13 Dose: 975 mg Documented By: STACIRISKy Acetaminophen (Acetaminophen Oral Liquid 650 Mg/20.3 Ml Solution) 500 mg PO Q6H PRN PRN Reason: fever or pain Atorvastatin Calcium (Atorvastatin Calcium 40 Mg Tablet) 40 mg PO BEDTIME [facility] Last Admin: 06/06/25 20:47 Dose: 40 mg Documented By: REYNA Bisacodyl (Bisacodyl 5 Mg Tablet.) 10 mg PO BEDTIME PRN PRN Reason: Constipation Last Admin: 06/02/25 09:26 Dose: 10 mg Documented By: CLAUDIA Brimonidine Tartrate (Brimonidine Tartrate 0.2% Oph 5 Ml Bottle) 1 drop EYE- BOTH BID [facility] Last Admin: 06/06/25 20:47 Dose: 1 drop Documented By: REYNA Calcium Carbonate (Calcium Carbonate 750 Mg Tab.Chew) 750 mg PO Q4H PRN PRN Reason: Heartburn Cyanocobalamin (Cyanocobalamin (Vitamin B-12) 1,000 Mcg Tablet) 1,000 mcg PO TUTH [facility] Last Admin: 06/05/25 03:39 Dose: 1,000 mcg Documented By: TASH Dextrose (Dextrose 50 % 25 Gm/50 Ml Syringe) 25 gm IVPUSH Q15M PRN; Protocol PRN Reason: per Hypoglycemia Standing Ord. Ferrous Sulfate (Ferrous Sulfate 324 Mg Tablet.) 324 mg PO SUTUWETHFRSA [facility] Last Admin: 06/07/25 03:40 Dose: 324 mg Documented By: REYNA Gabapentin (Gabapentin 300 Mg Capsule) 300 mg PO BID [facility] Last Admin: 06/06/25 20:47 Dose: 300 mg Documented By: REYNA Glucose (Glucose Gel 15 Gm Gel..Gram.) 15 gm PO Q15M PRN; Protocol PRN Reason: per Hypoglycemia Standing Ord. Guaifenesin (Guaifenesin 100 Mg/5 Ml 5 Ml Liquid) 5 ml PO Q4H PRN PRN Reason: Cough Last Admin: 06/06/25 23:36 Dose: 5 ml Documented By: REYNA Heparin Sodium (Porcine) (Heparin Sodium,Porcine 5,000 Unit/Ml Vial) 5,000 unit SUBCUT Q12H [facility] Last Admin: 06/07/25 03:40 Dose: 5,000 unit Documented By: REYNA Insulin Human Lispro (Insulin Lispro 100 Unit/Ml 3 Ml Vial) 0 unit SUBCUT QIDACHS [facility]; Protocol Last Admin: 06/06/25 21:54 Dose: Not Given Documented By: REYNA Non-Admin Reason: No Insulin Coverage Comments: poc 141 Latanoprost (Latanoprost 0.005 % Ophth Afia 2.5 Ml Drops) 1 drop EYE-BOTH BEDTIME [facility] Last Admin: 06/06/25 20:47 Dose: 1 drop Documented By: REYNA Levetiracetam (Levetiracetam 500 Mg Tablet) 500 mg PO BID [facility] Last Admin: 06/06/25 20:47 Dose: 500 mg Documented By: REYNA Levofloxacin (Levofloxacin 750 Mg Tablet) 750 mg PO Q48H [facility] Last Admin: 06/06/25 16:05 Dose: 750 mg Documented By: ABDULLAHI Magnesium Hydroxide (Milk Of Magnesia 30 Ml Oral.Susp) 30 ml PO DAILY PRN PRN Reason: Constipation Last Admin: 06/04/25 18:08 Dose: 30 ml Documented By: TASH Meclizine HCl (Meclizine Hcl 12.5 Mg Tablet) 12.5 mg PO BID PRN PRN Reason: dizziness Melatonin (Melatonin 3 Mg Tablet) 6 mg PO BEDTIME PRN PRN Reason: Insomnia Last Admin: 06/04/25 19:28 Dose: 6 mg Documented By: TASH Non-Formulary Medication (Ciclopirox) 1 appl TOPICAL BID [facility] Non-Formulary Medication (Estradiol [Estrace]) 1 appl VAGINAL BEDTIME [facility] Omeprazole (Omeprazole 20 Mg Capsule.Dr) 20 mg PO BEDTIME [facility] Last Admin: 06/06/25 20:47 Dose: 20 mg Documented By: REYNA Polyethylene Glycol (Polyethylene Glycol 3350 17 Gm Powd.Pack) 17 gm PO DAILY [facility] Last Admin: 06/06/25 08:19 Dose: 17 gm Documented By: TESSA Psyllium Hydrophilic Mucilloid (Psyllium Seed 3.7 Gm Packet) 3.7 gm PO DAILY [facility] Last Admin: 06/06/25 08:19 Dose: 3.7 gm Documented By: TESSA Sodium Chloride (0.9 % Sodium Chloride Flush 3 Ml Syringe) 3 ml IVFLUSH QSHIFT [facility] Last Admin: 06/06/25 20:50 Dose: 3 ml Documented By: REYNA Vitamin D (Cholecalciferol (Vitamin D3) 25 Mcg Tablet) 50 mcg PO BID [facility] Last Admin: 06/06/25 20:47 Dose: 50 mcg Documented By: REYNA Labs 06/07/25 05:45 06/07/25 05:44 Labs: Laboratory Results - last 24 hr 06/06/25 06/06/25 06/06/25 11:08 14:58 16:32 MCV MCH MCHC RDW Plt Count MPV Immature Gran % (Auto) Neut % (Auto) Lymph % (Auto) Cache % (Auto) Eos % (Auto) Baso % (Auto) Lymph # (Auto) Cache # (Auto) Eos # (Auto) Baso # (Auto) Abs Immat Gran (auto) Absolute Neuts (auto) Absolute Nucleated RBC Nucleated RBC % (auto) Anion Gap Estim Creat Clear Calc Estimated GFR POC Glucose 121 H 135 H Random Glucose Calcium Magnesium Total Bilirubin AST ALT Alkaline Phosphatase Total Protein Albumin Random Vancomycin 8.0 L 06/06/25 06/07/25 06/07/25 21:07 05:44 05:45 MCV 94.8 MCH 30.7 MCHC 32.4 RDW 14.5 Plt Count 319 MPV 9.9 Immature Gran % (Auto) 5.0 H Neut % (Auto) 49.0 Lymph % (Auto) 30.2 Cache % (Auto) 13.9 H Eos % (Auto) 1.5 Baso % (Auto) 0.4 Lymph # (Auto) 1.4 Cache # (Auto) 0.6 Eos # (Auto) 0.1 Baso # (Auto) 0.0 Abs Immat Gran (auto) 0.23 H Absolute Neuts (auto) 2.3 Absolute Nucleated RBC 0.000 Nucleated RBC % (auto) 0.0 Anion Gap 12 Estim Creat Clear Calc 35.8 Estimated GFR > 60 POC Glucose 141 H Random Glucose 133 H Calcium 8.3 L Magnesium 1.7 Total Bilirubin 0.2 AST 44 H ALT 32 H Alkaline Phosphatase 61 Total Protein 5.8 L Albumin 2.9 L Random Vancomycin 06/07/25 07:39 MCV MCH MCHC RDW Plt Count MPV Immature Gran % (Auto) Neut % (Auto) Lymph % (Auto) Cache % (Auto) Eos % (Auto) Baso % (Auto) Lymph # (Auto) Cache # (Auto) Eos # (Auto) Baso # (Auto) Abs Immat Gran (auto) Absolute Neuts (auto) Absolute Nucleated RBC Nucleated RBC % (auto) Anion Gap Estim Creat Clear Calc Estimated GFR POC Glucose 121 H Random Glucose Calcium Magnesium Total Bilirubin AST ALT Alkaline Phosphatase Total Protein Albumin Random Vancomycin Quality Stroke Does the patient have a stroke diagnosis?: No VTE Prior VTE?: No VTE Risk Level:: Medical - moderate - high VTE Device Contraindication: Treatment Not Indicated VTE Drug Contraindication: N/A - Med Ordered
[2025-06-07] MEDS: 0.9 % Sodium Chloride Flush 3 ML SYRINGE IVFLUSH (08:40)
[2025-06-07] MEDS: Psyllium seed 3.7 GM PACKET PO (08:40)
[2025-06-07] MEDS: guaiFENesin 100 MG/5 ML 5 ML LIQUID PO (08:55)
[2025-06-07] MEDS: Brimonidine Tartrate 0.2% Oph 5 ML BOTTLE 1 DROP EYE-BOTH (08:55)
--- NOTE | 2025-06-07 10:41 | MHC.CM.PN ---
chloe ji at 1 to [facility] emiliano gibson notified
--- NOTE | 2025-06-07 11:16 | PM.DS ---
DS: Providers Provider Date of Service: 06/07/25 Date of admission: 06/02/25 16:23 Date of discharge: 06/07/25 Primary care physician: Cuate Oscar MD Consults: 05/31/25 13:46 Consult to Case Management Stat Comment: DS: Diagnosis Discharge Diagnosis (1) Sepsis with acute hypoxic respiratory failure: Status: Acute (2) Pneumonia: Status: Acute DS: Summary Hospital Course Hospital Course: Sepsis secondary to pneumonia- resolving with antibiotics Pt is a pleasant elderly 85F PMH epilepsy, sick sinus syndrome status post pacer, DM2 , osteoporosis who was BIBA by arvin 2/2 AMS and unwitnessed fall at home and workup revealed Pna. Pna - workup revealed pna, given that she improved in 3 days, we will switch her antibiotics from IV to p.o. 3 more days to complete a total 10 days) prolonged given how frail she was. Mucinex, AV, IC, maintain O2 >92, pulm hygeine. She is unable to adequately use inhalers/might benefit from nebs at dc. 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 She was treated with IV fluids with brisk improvement, even before we could switch to different antibiotics hence she has been advised to eat and drink and has been hemodynamically stable for the next 2-1/2 days (prior to discharge) Fall /trauma workup Work up -ve, likely 2/2 sepsis 2/2 pna + fraility in elderly. PTOT/STR SSS s/p PPM - Ekg - Paced rhythm, trop , tele, thankfully at her normal baseline cardiac conditions. No changes in meds during this hospitalization DM2 - DC metformin given poor renal func -adrenal functions improve, was rx with ISS daily adjusting to maintain euglycemia OP - fall , asp precautions, pt/ot and SNF vs Home with VNA per pt recs Pt very deconditioned ([id number] protein calorie malnutrition) and needs SDR, family unable to care for her ongoing needs. Advised the patient's family to follow-up with PCP for DIRECTOR OF SPORTS PERFORMANCE needs Time spent discussing smoking cessation with patient: more than 10 minutes Status at Discharge Functional status at discharge: bed bound Overall status at discharge: patient is progressing back to baseline Time Attestation Discharge Coordination Time (in mins): >35 mins, spoke to the patient, and spoke to the patient's family again in person targeting acquisition officer and late morning reassuring them that she is hemodynamically stable and we do not keep patient's inpatients for risk of nosocomial infections and increased morbidity and mortality in frail elderly patients. Family agreeable with the plan Quality: Safe Use of Opioids Does Pt have an Active Cancer Diagnosis on the Problem List?: No Quality: Stroke Does the patient have a stroke diagnosis?: No Physical Exam Vital Signs: Vital Signs: Last Vital Signs Temp 98.6 F 06/07/25 08:00 Pulse 60 06/07/25 08:00 Resp 16 06/07/25 08:00 BP 122/60 06/07/25 08:00 Pulse Ox 93 06/07/25 08:00 O2 Del Method Room Air 06/07/25 08:00 O2 Flow Rate 2 06/06/25 07:14 BMI result Body Mass Index 19.0 DS: Data Data Completed and Pending Labs on day of discharge: Laboratory Results - last 24 hr 06/06/25 06/06/25 06/06/25 11:08 14:58 16:32 WBC RBC Hgb Hct MCV MCH MCHC RDW Plt Count MPV Immature Gran % (Auto) Neut % (Auto) Lymph % (Auto) Waller % (Auto) Eos % (Auto) Baso % (Auto) Lymph # (Auto) Waller # (Auto) Eos # (Auto) Baso # (Auto) Abs Immat Gran (auto) Absolute Neuts (auto) Absolute Nucleated RBC Nucleated RBC % (auto) Sodium Potassium Chloride Carbon Dioxide Anion Gap BUN Creatinine Estim Creat Clear Calc Estimated GFR POC Glucose 121 H 135 H Random Glucose Calcium Magnesium Total Bilirubin AST ALT Alkaline Phosphatase Total Protein Albumin Random Vancomycin 8.0 L 06/06/25 06/07/25 06/07/25 21:07 05:44 05:45 WBC 4.6 L RBC 3.06 L Hgb 9.4 L Hct 29.0 L MCV 94.8 MCH 30.7 MCHC 32.4 RDW 14.5 Plt Count 319 MPV 9.9 Immature Gran % (Auto) 5.0 H Neut % (Auto) 49.0 Lymph % (Auto) 30.2 Waller % (Auto) 13.9 H Eos % (Auto) 1.5 Baso % (Auto) 0.4 Lymph # (Auto) 1.4 Waller # (Auto) 0.6 Eos # (Auto) 0.1 Baso # (Auto) 0.0 Abs Immat Gran (auto) 0.23 H Absolute Neuts (auto) 2.3 Absolute Nucleated RBC 0.000 Nucleated RBC % (auto) 0.0 Sodium 142 Potassium 4.5 Chloride 113 H Carbon Dioxide 22 Anion Gap 12 BUN 11 Creatinine 0.67 Estim Creat Clear Calc 35.8 Estimated GFR > 60 POC Glucose 141 H Random Glucose 133 H Calcium 8.3 L Magnesium 1.7 Total Bilirubin 0.2 AST 44 H ALT 32 H Alkaline Phosphatase 61 Total Protein 5.8 L Albumin 2.9 L Random Vancomycin 06/07/25 07:39 WBC RBC Hgb Hct MCV MCH MCHC RDW Plt Count MPV Immature Gran % (Auto) Neut % (Auto) Lymph % (Auto) Waller % (Auto) Eos % (Auto) Baso % (Auto) Lymph # (Auto) Waller # (Auto) Eos # (Auto) Baso # (Auto) Abs Immat Gran (auto) Absolute Neuts (auto) Absolute Nucleated RBC Nucleated RBC % (auto) Sodium Potassium Chloride Carbon Dioxide Anion Gap BUN Creatinine Estim Creat Clear Calc Estimated GFR POC Glucose 121 H Random Glucose Calcium Magnesium Total Bilirubin AST ALT Alkaline Phosphatase Total Protein Albumin Random Vancomycin Preliminary micro results at discharge 06/02/25 19:18 Blood Culture - Preliminary Blood - Venous No growth after 48 hours. 06/02/25 19:18 Blood Culture - Preliminary Blood - Venous No growth after 48 hours. Discharge Plan Discharge Anticipated Discharge Date/Time: 06/07/25 09:59 Patient Disposition: Xfer SNF Discharge Diagnosis: Sepsis pna s/p resolution in a frail AFTT pt Referrals: Nutritional Referral [Outside] - 1 Week Yanira Avalos [Outside] - 1 Week Cuate Oscar MD [Primary Care Provider, Internal Medicine] - 1 Week Discharge Medications: New levofloxacin 750 mg Tablet 750 mg PO Q48H 5 Days Qty: 3 0RF guaifenesin 100 mg/5 mL Liquid 50 mg PO Q4H PRN (Reason: Cough) Qty: 1000 0RF Ensure Pudding Pudding 1 ea PO TID 30 Days Qty: 452 3RF Continued atorvastatin 40 mg tablet 40 mg PO BEDTIME 90 Days Qty: 90 1RF cholecalciferol (vitamin D3) [Vitamin D3] 50 mcg (2,000 unit) tablet 50 mcg PO BID Qty: 60 1RF meclizine 12.5 mg tablet 12.5 mg PO TID PRN (Reason: for dizziness) Qty: 90 0RF acetaminophen 500 mg capsule 500 mg PO Q6H PRN (Reason: fever or pain) Qty: 30 0RF brimonidine 0.2 % drops 1 drp BID polyethylene glycol 3350 [Miralax] 17 gram Powder In Packet 17 g PO DAILY psyllium Packet 1 packet PO DAILY Rx Instructions: mix into at least 8 oz of water or juice before administering ferrous sulfate 325 mg (65 mg iron) tablet 325 mg PO SUTUWETHFRSA omeprazole 20 mg capsule,delayed release(DR/EC) 20 mg PO BEDTIME estradiol [Estrace] 0.01 % (0.1 mg/gram) cream 1 appl vaginal BEDTIME Rx Instructions: apply a pea sized amount to fingertip and appy cream vaginally at bedtime vaginally daily; cyanocobalamin (vitamin B-12) 1,000 mcg capsule 1,000 mcg PO TUTH alendronate 70 mg tablet 70 mg PO MO latanoprost 0.005 % drops 1 drp ophthalmic (eye) BEDTIME bisacodyl [Dulcolax (bisacodyl)] 5 mg tablet,delayed release (DR/EC) 10 mg PO BEDTIME PRN (Reason: constipation) 30 Days Qty: 10 1RF Rx Instructions: to use if no bowel movement for 2-3 days gabapentin 300 mg capsule 300 mg PO BID levetiracetam 500 mg tablet 500 mg PO BID (DME) COMPRESSION STOCKINGS - knee-high (medium compression) small See Rx Instructions .Route .MEDSUPPLY Qty: 2 0RF Rx Instructions: As directed ciclopirox 0.77 % suspension 1 appl topical BID 180 Days Qty: 6.6 3RF Rx Instructions: Applied to fungal toenail daily. Remove build-up at the end of the week. Held metformin 500 mg tablet 500 mg PO BID 90 Days Qty: 180 3RF Hold Instructions: Resume on 06/12/25. Follow-up with primary care and resume when CKD improves Discharge Orders: Discharge Order (Routine); Ordered 06/07/25 Ordered By: Jamee Florentino Diet: DM2 diet Activity on Discharge: Rest with bed elevated Stand Alone Forms: Patient Portal Discharge page Print Language: Arabic Care Plan Goals: Adequate p.o. intake Health Concerns: Continue to recover by taking p.o. antibiotics 3 more days (she is on low dose given her renal clearance) to complete Xarelto day course of antibiotics Continue to have guanfacine, pulmonary hygiene and Acapella valve and incentive spirometer to effectively expectorate Continue to have adequate p.o. intake Family had concerns about her ongoing escalating needs advised the patient's family to consult with the PCP regarding getting a DIRECTOR OF SPORTS PERFORMANCE referral Plan of Treatment: See above Assessment: See above Patient Instructions: Bacterial Pneumonia (DC)
[2025-06-07 11:34] LABS: Glucose, Whole Blood 176 mg/dL (60-115)
[2025-06-07 11:37] VITALS: BP 121/60; PULSE 60; RESP 14; TEMP 36.1; O2SAT 97
[2025-06-07 12:46] VITALS: BP 125/58; PULSE 60; RESP 20; O2SAT 96
== END 2025-06-07 13:00 | disposition skilled nursing facility (03) | DRG 871 ==
LOC: HO.ED 06-02 12:09 → HO.EDOVER 06-02 18:42 → HO.S3 06-04 15:31
PROVIDERS: Physician Assistant Medical; Admitting Provider Nurse Practitioner Acute Care; Emergency Provider Emergency Medicine; PCP Internal Medicine; Visit Provider Student in an Organized Health Care Education/Training Program
DX: A41.9 Sepsis, unspecified organism (principal); J18.9 Pneumonia, unspecified organism; J96.01 Acute respiratory failure with hypoxia; E44.0 Moderate protein-calorie malnutrition; Z68.1 Body mass index [BMI] 19.9 or less, adult; E11.9 Type 2 diabetes mellitus without complications; D50.9 Iron deficiency anemia, unspecified; Z66 Do not resuscitate; I49.5 Sick sinus syndrome; E86.1 Hypovolemia; E78.5 Hyperlipidemia, unspecified; W19.XXXA Unspecified fall, initial encounter; I95.9 Hypotension, unspecified; G40.909 Epilepsy, unspecified, not intractable, without status epilepticus; Z95.0 Presence of cardiac pacemaker; Z20.822 Contact with and (suspected) exposure to COVID-19; Z87.891 Personal history of nicotine dependence; Z79.84 Long term (current) use of oral hypoglycemic drugs; Z79.899 Other long term (current) drug therapy
CPT/HCPCS: 36415; 36600; 70450; 71045; 71250; 72125; 80048; 80053; 80202; 81001; 82550; 82803; 82947; 83605; 83735; 84484; 85025; 87040; 87086; 87502; 87635; 87637; 87651; 90656; 93005; 94640; 97116; 97162; 97530; 99285; J0456; J0696; J1644; J1956; J3374

== ENCOUNTER → 2025-05-31 10:10 | Outpatient (BNV) | payer MEDICARE, SELFPAY | PROVIDERS: Emergency Provider Emergency Medicine; PCP Internal Medicine; Visit Provider Nuclear Medicine | DX: R91.8 Other nonspecific abnormal finding of lung field (principal); M54.2 Cervicalgia; W19.XXXA Unspecified fall, initial encounter; I67.3 Progressive vascular leukoencephalopathy; G31.9 Degenerative disease of nervous system, unspecified; S09.90XA Unspecified injury of head, initial encounter | CPT/HCPCS: 70450; 71045; 71250; 72125 ==

== ENCOUNTER → 2025-05-31 11:12 | Outpatient (BNV) | payer MEDICARE, SELFPAY | PROVIDERS: Emergency Provider Emergency Medicine; PCP Internal Medicine; Visit Provider Internal Medicine Cardiovascular Disease | DX: R94.31 Abnormal electrocardiogram [ECG] [EKG] (principal); Z95.0 Presence of cardiac pacemaker | CPT/HCPCS: 93010 ==

== ENCOUNTER 2025-06-02 16:23 | Outpatient (BNV) | payer MEDICARE, SELFPAY | END 2025-06-05 16:06 | PROVIDERS: Admitting Provider Nurse Practitioner Acute Care; Emergency Provider Emergency Medicine; PCP Internal Medicine; Visit Provider Internal Medicine Cardiovascular Disease | DX: R94.31 Abnormal electrocardiogram [ECG] [EKG] (principal); Z95.0 Presence of cardiac pacemaker | CPT/HCPCS: 93010 ==

== ENCOUNTER 2025-06-02 16:23 | Outpatient (BNV) | payer MEDICARE, SELFPAY | END 2025-06-05 16:04 | PROVIDERS: Admitting Provider Nurse Practitioner Acute Care; Emergency Provider Emergency Medicine; PCP Internal Medicine; Visit Provider Radiology Body Imaging | DX: J18.9 Pneumonia, unspecified organism (principal); J98.4 Other disorders of lung | CPT/HCPCS: 71045 ==

== ENCOUNTER → 2025-06-02 16:23 | Outpatient (BNV) | payer MEDICARE, SELFPAY | PROVIDERS: Admitting Provider Nurse Practitioner Acute Care; Emergency Provider Emergency Medicine; PCP Internal Medicine; Visit Provider Nurse Practitioner Acute Care | DX: J96.01 Acute respiratory failure with hypoxia (principal); A41.9 Sepsis, unspecified organism; R65.20 Severe sepsis without septic shock; J18.9 Pneumonia, unspecified organism | CPT/HCPCS: 99222; 99232 ==

== ENCOUNTER 2025-06-15 14:30 | Emergency (ER) | payer MEDICARE, SELFPAY ==
--- NOTE | ~2025-06-15 | XR_ITS ---
CLINICAL HISTORY: pace maker displaced 1 view chest x-ray Comparison: CR/SR - XR CHEST 1 VIEW - 06/05/25 16:18 EDT CR - XR CHEST 1V - 05/31/25 23:15 EDT Findings: No consolidation, pleural effusion or pneumothorax. Redemonstration 1 cm ill-defined left upper lobe nodule, similar to the 05/31/2025 study. Normal size heart. Biventricular cardiac pacemaker is unchanged in position. Leads appear intact. Dense aortic calcifications. No acute fracture. IMPRESSION: 1. Stable satisfactory positioning of the biventricular cardiac pacemaker. 2. No acute cardiopulmonary process. 3. Nonspecific nodule in the left upper lobe. Further characterization with CT chest could be obtained on a nonemergent elective basis. This document has been electronically signed by: Consuelo Herzog DO on 06/15/2025 16:48:33
[2025-06-15 14:37] VITALS: BP 114/65; BP 129/59; PULSE 60; PULSE 80; RESP 12; TEMP 36.4; O2SAT 97; BMI 18.1
--- NOTE | 2025-06-15 14:43 | ED.TRAUMA ---
HPI - Trauma General Chief Complaint: General Medical Stated Complaint: ISSUES WITH PACEMAKER POSSIBLY DISPLACED Time Seen by Provider: 06/15/25 14:39 History of Present Illness ED Provider: cherry HPI narrative: Patient comes in for waking with a malpositioned pacemaker in the left upper chest wall. She has never had this before. Does not hurt and she has not to the chest. No breaks in the skin. No cardiac symptoms Related Data Home Medications ?Medication ?Instructions ?Recorded ?Confirmed latanoprost 0.005 % eye drops 1 drp ophthalmic (eye) BEDTIME 12/30/21 05/31/25 alendronate 70 mg tablet 70 mg PO MO 09/15/23 05/31/25 levetiracetam 500 mg tablet 500 mg PO BID 06/06/24 05/31/25 gabapentin 300 mg capsule 300 mg PO BID 07/03/24 05/31/25 brimonidine 0.2 % eye drops 1 drp BID 05/31/25 05/31/25 cyanocobalamin (vitamin B-12) 1,000 mcg PO TUTH 05/31/25 05/31/25 1,000 mcg capsule estradiol 0.01% (0.1 mg/gram) 1 appl vaginal BEDTIME 05/31/25 05/31/25 vaginal cream (Estrace) ferrous sulfate 325 mg (65 mg 325 mg PO SUTUWETHFRSA 05/31/25 05/31/25 iron) tablet omeprazole 20 mg capsule,delayed 20 mg PO BEDTIME 05/31/25 05/31/25 release polyethylene glycol 3350 17 gram 17 g PO DAILY 05/31/25 05/31/25 oral powder packet (Miralax) psyllium 1 packet PO DAILY 05/31/25 05/31/25 Previous Rx's ?Medication ?Instructions ?Recorded bisacodyl 5 mg tablet,delayed 10 mg (2 x 5 mg) PO BEDTIME PRN 07/06/23 release (Dulcolax (bisacodyl)) constipation 30 days #10 tabs COMPRESSION STOCKINGS - knee-high #2 ea 07/05/24 (medium compression) acetaminophen 500 mg capsule 500 mg PO Q6H PRN fever or pain 10/10/24 #30 caps metformin 500 mg tablet 500 mg PO BID 90 days #180 tabs 01/28/25 Held on 06/07/25. Instructions: Resume on 06/12/25. Follow-up with primary care and resume when CKD improves atorvastatin 40 mg tablet 40 mg PO BEDTIME 90 days #90 tabs 02/14/25 cholecalciferol (vitamin D3) 50 50 mcg PO BID #60 tabs 04/17/25 mcg (2,000 unit) tablet (Vitamin D3) ciclopirox 0.77 % topical 1 appl topical BID Onychomycosis 6 05/07/25 suspension months #6.6 mL meclizine 12.5 mg tablet 12.5 mg PO TID PRN for dizziness 06/06/25 #90 tabs guaifenesin 100 mg/5 mL oral liquid 50 mg (2.5 mL) PO Q4H PRN Cough 06/07/25 #1,000 mL levofloxacin 750 mg tablet 750 mg PO Q48H 5 days #3 tabs 06/07/25 nutritional supplements (Ensure 1 ea PO TID 30 days #452 grams 06/07/25 Pudding) Allergies Allergy/AdvReac Type Severity Reaction Status Date / Time Penicillins Allergy Intermediate RASH Verified 06/15/25 14:44 [facility] Past Medical History Medical History Osteoporosis (~2007) Tubular adenoma of colon (~2019) Post-menopausal Left arm swelling Swelling of lymph node Cardiac pacemaker in situ (~2018) Sick sinus syndrome Insomnia Degenerative joint disease Nocturnal leg cramps Dementia without behavioral disturbance GERD (gastroesophageal reflux disease) Constipation Vitamin D deficiency Neuropathy Vitamin B12 deficiency Epilepsy (~1998) Anemia Sinus bradycardia Pure hypercholesterolemia Diabetes mellitus Surgical History History of endoscopy History of ankle surgery (~2011) History of partial gastrectomy History of colonoscopy History of pacemaker (~2018) History of hysterectomy Family History Family History Father Medical history unknown Mother No problems noted. Daughter No problems noted. Son No problems noted. Other Substance use disorder Social History Social History Household Members: Children Housing: House Are you a primary care aid to a significant other at home: No Do you presently have visiting nurse or other home services: Yes ([employer] services) Alcohol intake: never Patient Tobacco Use Status: Former Tobacco user Tobacco use type: Cigarette Smoked in Last 30 Days: No e-Cigarette/Vaping Use: Never Used Second Hand Smoke Exposure: No Use of substances other than those prescribed or required for medical reasons: No Advance Directives: Yes Advance Directives on File: Yes Advance Directives Date on File: 10/03/24 service: No Current occupational status: retired 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 No apparent distress. Alert. HEAD/NECK: No visual trauma. EYES: Normal to inspection. No conjunctival erythema. No discharge. ENMT: Hearing grossly normal. External nose normal. RESPIRATORY: Respiratory effort normal. CARDIOVASCULAR: Additional details (Grossly well perfused). SKIN: No jaundice. NEUROLOGICAL: Alert. Moving all extremities x4. Additional details (No gross motor deficits. Normal tone. ). PSYCHIATRIC: Alert. Appearance appropriate for situation. 1st photo is the malpositioned pacemaker on arrival subsequent photo is spontaneous repositioning Vital Signs: Vital Signs: Last Vital Signs Temp 97.5 F 06/15/25 18:01 Pulse 60 06/15/25 18:01 Resp 12 06/15/25 18:01 BP 129/59 L 06/15/25 18:01 Pulse Ox 97 06/15/25 18:01 O2 Del Method Room Air 06/15/25 18:01 BMI result Body Mass Index 18.1 Medical Decision Making Medical Decision Making MDM Narrative: Patient arrives for atraumatic malpositioning of the left upper chest pacemaker. This spontaneously reduced to normal position the patient is asymptomatic pacer appears to be working well no pacer wire fracture or other abnormality on chest x-ray. Close follow up with Cardiology maybe secondary to skin laxity Discharge Plan Discharge Clinical Impression: Pacemaker, Apical lung nodule Patient Disposition: Home, Self-Care Instructions: Pacemaker (DC) Additional Instructions: You were evaluated for a malpositioning of your pacemaker that we feel is secondary to the laxity of the skin on your chest wall in his not sign of any severe problem. Chest x-ray and EKG was reassuring. Call your extruder operator tomorrow you need to follow up with the extruder operator who placed this to be sure that there was no problem going on with the device Lung nodule needs to be followed by PCP Prescriptions: No Action metformin 500 mg tablet 500 mg PO BID 90 Days Qty: 180 3RF atorvastatin 40 mg tablet 40 mg PO BEDTIME 90 Days Qty: 90 1RF cholecalciferol (vitamin D3) [Vitamin D3] 50 mcg (2,000 unit) tablet 50 mcg PO BID Qty: 60 1RF meclizine 12.5 mg tablet 12.5 mg PO TID PRN (Reason: for dizziness) Qty: 90 0RF acetaminophen 500 mg capsule 500 mg PO Q6H PRN (Reason: fever or pain) Qty: 30 0RF brimonidine 0.2 % drops 1 drp BID polyethylene glycol 3350 [Miralax] 17 gram Powder In Packet 17 g PO DAILY psyllium Packet 1 packet PO DAILY Rx Instructions: mix into at least 8 oz of water or juice before administering ferrous sulfate 325 mg (65 mg iron) tablet 325 mg PO SUTUWETHFRSA omeprazole 20 mg capsule,delayed release(DR/EC) 20 mg PO BEDTIME estradiol [Estrace] 0.01 % (0.1 mg/gram) cream 1 appl vaginal BEDTIME Rx Instructions: apply a pea sized amount to fingertip and appy cream vaginally at bedtime vaginally daily; cyanocobalamin (vitamin B-12) 1,000 mcg capsule 1,000 mcg PO TUTH levofloxacin 750 mg Tablet 750 mg PO Q48H 5 Days Qty: 3 0RF guaifenesin 100 mg/5 mL Liquid 50 mg PO Q4H PRN (Reason: Cough) Qty: 1000 0RF Ensure Pudding Pudding 1 ea PO TID 30 Days Qty: 452 3RF alendronate 70 mg tablet 70 mg PO MO latanoprost 0.005 % drops 1 drp ophthalmic (eye) BEDTIME bisacodyl [Dulcolax (bisacodyl)] 5 mg tablet,delayed release (DR/EC) 10 mg PO BEDTIME PRN (Reason: constipation) 30 Days Qty: 10 1RF Rx Instructions: to use if no bowel movement for 2-3 days gabapentin 300 mg capsule 300 mg PO BID levetiracetam 500 mg tablet 500 mg PO BID (DME) COMPRESSION STOCKINGS - knee-high (medium compression) small See Rx Instructions .Route .MEDSUPPLY Qty: 2 0RF Rx Instructions: As directed ciclopirox 0.77 % suspension 1 appl topical BID 180 Days Qty: 6.6 3RF Rx Instructions: Applied to fungal toenail daily. Remove build-up at the end of the week. Interventions: ED Discharge Assessment Last Done: 06/15/25 18:01 Discharge Date/Time: 06/15/25 18:03 Print Language: Frisian
--- NOTE | 2025-06-15 14:46 | ECG_ITS ---
Test Reason : PACE MAKER ISSUE Blood Pressure : */* mmHG Vent. Rate : 62 BPM Atrial Rate : 62 BPM P-R Int : 158 ms QRS Dur : 62 ms QT Int : 388 ms P-R-T Axes : * 42 24 degrees QTcB Int : 393 ms Atrial-paced rhythm Abnormal ECG When compared with ECG of 05-Jun-2025 16:19, Nonspecific T wave abnormality now evident in Anterior leads Referred By: Xander Waters Electronically Signed By: PAT SANTOS
--- OUTSIDE RECORDS SUMMARY | 2025-06-15 15:12 | XMS_ITS | Clinical Summary ---
Author Organization [facility] [address] [place] [address] [place] [phone] Phone Care Team Providers Care Nurse Practitioner Home Assessments Name Role Phone Cuate Oscar MD Primary Care Provider + [phone] Allergies Active Allergy Reactions Criticality Noted Date [...] Problems Problem Noted Date Diagnosed Date Hyperparathyroidism ([facility] V24) 01/02/2024 Age-related osteoporosis wit hout current pathological fracture 06/27/2023 Encounters Date Type Department Care Team Description 06/12/2025 Lab Requisition [facility] Main Lab [address] [facility] [place] [address] Any Hernandez MD Other seizures ([facility] V24, [facility] V28) 06/08/2025 Lab Requisition [facility] Lab [address] [facility] [place] [address] Any Hernandez MD Pneumonia, unspecified organism; Chronic kidney disease, unspecified; Type 2 diabetes mellitus without complications ([facility] V24, [facility] V28); Vitamin D deficiency, unspecified from Last 3 Months Social History Tobacco [...] 11:15 AM EST Appointment Bone Density - [place] [address] [place], [place] [phone] 07/21/2025 11:00 AM EST Office Visit Endocrinology - [place] [address] [place], [place] [phone] Marta Milian PA [address] [place] [address] Health Maintenance Due Date Last Done Comments Diabetes: Annual Foot Exam 1950 Diabetes: Annual Retina Eye Exam 1950 Cholesterol Screening (Lipid Panel) 07/24/2022 Falls Risk Assessment 07/24/2022 Medicare Annual Wellness Visit 07/24/2022 Osteoporosis Screening (Bone Density Screening) 07/24/2022 Social Influencers of Health Screening 07/24/2022 Depression Screening 08/21/2024 Zoster Vaccines (2 of 2) 01/07/2025 11/12/2024 COVID-19 Vaccine ( season) 2025 06/27/2024, 07/09/2021, 01/01/2021 Influenza Vaccine (#1) 2025 06/27/2024, 2021 Diabetes: Annual Urine Albumin-Creatinine Ratio (uACR) 06/08/2025 Diabetes: Blood Sugar Control Test (HGBA1C) 12/07/2025 06/08/2025 Diabetes: Annual GFR (Glomerular Filtration Rate) 06/08/2026 06/08/2025, 12/30/2024, 12/28/2023, Additional history exists DTaP,Tdap,and Td Vaccines (2 - Td or [...] 20 months Aged Out No longer eligible based on patient's age to complete this topic Varicella Vaccines Aged Out No longer eligible based on patient's age to complete this topic Procedures Procedure Name Priority Date/Time Associated Diagnosis Comments HEMOGLOBIN A1C Routine 06/08/2025 5:39 AM EDT Pneumonia, unspecified organism Chronic kidney disease, unspecified Type 2 diabetes mellitus without complications ([facility] V24, [facility] V28) Vitamin D deficiency, unspecified COMPREHENSIVE METABOLIC PANEL Routine 06/08/2025 5:39 AM EDT Pneumonia, unspecified organism Chronic kidney disease, unspecified Type 2 diabetes mellitus without complications ([facility] V24, [facility] V28) Vitamin D deficiency, unspecified COMPLETE BLOOD COUNT Routine 06/08/2025 5:39 AM EDT Pneumonia, unspecified organism Chronic kidney disease, unspecified Type 2 diabetes mellitus without complications ([facility] V24, [facility] V28) Vitamin D deficiency, unspecified from Last 3 Months Results * (ABNORMAL) Complete blood count (06/08/2025 5:39 AM EDT) WBC 5.2 4.8 - 10.8 K/[facility] LAB HEMETOLOGY METHOD 06/08/2025 8:04 AM [facility] LAB RBC 3.00(L) 3.80 - 4.80 M/mcL LAB HEMETOLOGY METHOD 06/08/2025 8:04 AM [facility] LAB Hemoglobin 9.3(L) 11.5 - 16.0 g/dL LAB HEMETOLOGY METHOD 06/08/2025 8:04 AM [facility] LAB Hematocrit 29.2(L) 35.0 - 47.0 % LAB HEMETOLOGY METHOD 06/08/2025 8:04 AM [facility] LAB MCV 96.1 79.0 - 98.0 FL LAB HEMETOLOGY METHOD 06/08/2025 8:04 AM [facility] LAB MCH 30.6 27.0 - 32.0 pcg LAB HEMETOLOGY METHOD 06/08/2025 8:04 AM [facility] LAB MCHC 31.8(L) 32.0 - 37.0 g/dL LAB HEMETOLOGY METHOD 06/08/2025 8:04 AM [facility] LAB RDW 14.6 11.0 - 15.0 % LAB HEMETOLOGY METHOD 06/08/2025 8:04 AM [facility] LAB Platelets 315 130 - 400 K/mcL LAB HEMETOLOGY METHOD 06/08/2025 8:04 AM [facility] LAB MPV 9.7 7.0 - 11.0 FL LAB HEMETOLOGY METHOD 06/08/2025 8:04 AM [facility] LAB NRBC 0.0 <1.0 % LAB HEMETOLOGY METHOD 06/08/2025 8:04 AM [facility] LAB NRBC Absolute 0.00 <0.10 K/mcL LAB HEMETOLOGY METHOD 06/08/2025 8:04 AM [facility] LAB Blood Venous blood specimen / Unknown Venipuncture / Unknown 06/08/2025 5:39 AM EDT 06/08/2025 7:38 AM EDT us Any Hernandez MD LAB BLOOD ORDERABLES Final Resul t Performing Organization Address City/[facility]/ZIP Co de Phone Number [facility] LAB [address] [place] [address], [place] [phone] * (ABNORMAL) Hemoglobin A1c (06/08/2025 5:39 AM EDT) Hemoglobin A1C 7.1(H) <6.5 % LAB CHEMISTRY METHOD 06/08/2025 1:04 PM EDT [facility] LAB Mean Bld Glu Estim. 157 mg/dL LAB CHEMISTRY METHOD 06/08/2025 1:04 PM EDT [facility] LAB Blood Venous blood specimen / Unknown Venipuncture / Unknown 06/08/2025 5:39 AM EDT 06/08/2025 7:38 AM EDT us Any Hernandez MD LAB BLOOD ORDERABLES Final Resul t Performing Organization Address City/[facility]/ZIP Co de Phone Number [facility] LAB [address] [place] [address], [place] [phone] * (ABNORMAL) Comprehensive metabolic panel (06/08/2025 5:39 AM EDT) Sodium 142 133 - 145 mmol/L LAB CHEMISTRY METHOD 06/08/2025 8:21 AM EDT [facility] LAB Potassium 4.7 3.5 - 5.5 mmol/L LAB CHEMISTRY METHOD 06/08/2025 8:21 AM EDT [facility] LAB Chloride 111(H) 96 - 110 mmol/L LAB CHEMISTRY METHOD 06/08/2025 8:21 AM EDT [facility] LAB CO2 27 21 - 32 mmol/L LAB CHEMISTRY METHOD 06/08/2025 8:21 AM EDT [facility] LAB Anion Gap 4 3 - 11 LAB CHEMISTRY METHOD 06/08/2025 8:21 AM [facility] LAB Glucose 134(H) 70 - 100 mg/dL LAB CHEMISTRY METHOD 06/08/2025 8:21 AM [facility] LAB BUN 7 5 - 25 mg/dL LAB CHEMISTRY METHOD 06/08/2025 8:21 AM [facility] LAB Creatinine 0.80 0.50 - 1.10 mg/dL LAB CHEMISTRY METHOD 06/08/2025 8:21 AM [facility] LAB eGFR 73 >=60 mL/min/1. 73m2 LAB CHEMISTRY METHOD 06/08/2025 8:21 AM [facility] LAB Comment:Calculation based on the Chronic Kidney Disease Epidemiology Collaboration (CKD-EPI) equation refit without adjustment for race. BUN/Creatinine Ratio 8.8 LAB CHEMISTRY METHOD 06/08/2025 8:21 AM [facility] LAB Calcium 8.4(L) 8.5 - 10.5 mg/dL LAB CHEMISTRY METHOD 06/08/2025 8:21 AM [facility] LAB AST (SGOT) 49(H) 10 - 42 unit/L LAB CHEMISTRY METHOD 06/08/2025 8:21 AM [facility] LAB ALT (SGPT) 53 10 - 60 unit/L LAB CHEMISTRY METHOD 06/08/2025 8:21 AM [facility] LAB Alkaline Phosphatase 62 42 - 121 unit/L LAB CHEMISTRY METHOD 06/08/2025 8:21 AM [facility] LAB Total Protein 5.5(L) 6.0 - 8.0 g/dL LAB CHEMISTRY METHOD 06/08/2025 8:21 AM [facility] LAB Albumin 2.3(L) 3.2 - 5.0 g/dL LAB CHEMISTRY METHOD 06/08/2025 8:21 AM [facility] LAB Total Bilirubin 0.3 0.0 - 1.4 mg/dL LAB CHEMISTRY METHOD 06/08/2025 8:21 AM EDT [facility] Blood Venous blood specimen / Unknown Venipuncture / Unknown 06/08/2025 5:39 AM EDT 06/08/2025 7:38 AM EDT us Any Hernandez MD LAB BLOOD ORDERABLES Final Resul t [facility] LAB [address] [place] [address], from Last 3 Months Insurance MEDICARE Care Teams Nurse Practitioner Home Assessments Relationship Specialty Start Date End Date Cuate Oscar MD [address] [place] [address] [address] MONSE Grimaldo PCP - General Internal Medicine 11/11/21
--- OUTSIDE RECORDS SUMMARY | 2025-06-15 15:12 | XMS_ITS | Encounter Summary ---
Author Organization [facility] Address [address] [place] [address] Care Team Providers Care Delivery Driver Name Role Phone Cuate Oscar MD Primary Care Provider + [phone] Encounter Details Date Type Department Care Team (Late Contact Info) Description 06/12/2025 Lab Requisition [facility] - Main Lab [address] [place] [phone] Any Hernandez MD [address] [place] [address] Other seizures (CMS/HCC V24, CMS/HCC V28) Social History Tobacco Use Types Packs/Day Years Used Date Smoking Tobacco: Former Cigarettes Q uit: 08/21/2011 Smokeless Tobacco: Never Comments Unknown Sex and Gender Information Value Date Recorded Sex Assigned at Not on file Legal Sex Female 3:49 AM EST Gender Identity Not on file Sexual Orientation Not on file documented as of this encounter Plan of Treatment Upcoming Encounters Date Type Department Care Team (Late Contact Info) Description 07/02/2025 11:15 AM EST Appointment Bone Density - [address] [phone] 07/21/2025 11:00 AM EST Office Visit Endocrinology - [address] [phone] Marta Milian PA [address] [place] [address] Pending Results Name Type Priority Associated Diagnoses Date /Time Levetiracetam level Lab Routine Other seizures ([facility] V24, [facility] V28) 06/12/2025 7:15 AM EDT documented as of this encounter Visit Diagnoses Diagnosis Other seizures ([facility] V24, [facility] V28) documented in this encounter Care Teams Delivery Driver Relationship Specialty Start Date End Date Cuate Oscar MD [address] [place] [address] Dr [address] [place], [place] PCP - General Internal Medicine 11/11/21 documented as of this encounter
--- OUTSIDE RECORDS SUMMARY | 2025-06-15 15:12 | XMS_ITS | Encounter Summary ---
Author Organization [facility] Address [address] [place] [address] Care Team Providers Care Endodontic Assistant Name Role Phone Cuate Oscar MD Primary Care Provider + [phone] Encounter Details Date Type Department Care Team (Latest Contact Info) Description 06/08/2025 Lab Requisition [facility] - Main Lab [address] [place] [phone] Any Hernandez MD [address] [place] [phone] Pneumonia, unspecified organism; Chronic kidney disease, unspecified; Type 2 diabetes mellitus without complications (CMS/HCC V24, CMS/HCC V28); Vitamin D deficiency, unspecified Social History Tobacco Use Types Packs/Day Years [...] 11:15 AM EST Appointment Bone Density - [place] [address] [place] [phone] 07/21/2025 11:00 AM EST Office Visit Endocrinology - [address] [phone] Marta Milian PA [address] [place], [place] [phone] documented as of this encounter Procedures Procedure Name Priority Date/Time Associated Diagnosis Comments COMPLETE BLOOD COUNT Routine 06/08/2025 5:39 AM EDT Pneumonia, unspecified organism Chronic kidney disease, unspecified Type 2 diabetes mellitus without complications ([facility] V24, [facility] V28) Vitamin D deficiency, unspecified HEMOGLOBIN A1C Routine 06/08/2025 5:39 AM EDT Pneumonia, unspecified organism Chronic kidney disease, unspecified Type 2 diabetes mellitus without complications ([facility] V24, [facility] V28) Vitamin D deficiency, unspecified COMPREHENSIVE METABOLIC PANEL Routine 06/08/2025 5:39 AM EDT Pneumonia, unspecified organism Chronic kidney disease, unspecified Type 2 diabetes mellitus without complications ([facility] V24, [facility] V28) Vitamin D deficiency, unspecified documented in this encounter Results * (ABNORMAL) Hemoglobin A1c (06/08/2025 5:39 AM EDT) Hemoglobin A1C 7.1(H) <6.5 % LAB CHEMISTRY METHOD 06/08/2025 1:04 PM EDT [facility] LAB Mean Bld Glu Estim. 157 mg/dL LAB CHEMISTRY METHOD 06/08/2025 1:04 PM EDT [facility] LAB Blood Venous blood specimen / Unknown Venipuncture / Unknown 06/08/2025 5:39 AM EDT 06/08/2025 7:38 AM EDT us Any Hernandez MD LAB BLOOD ORDERABLES Final Resul t [facility] LAB [address] [place] [address], * (ABNORMAL) Comprehensive metabolic panel (06/08/2025 5:39 AM EDT) Pathologist [facility] Sodium 142 133 - 145 mmol/L LAB CHEMISTRY METHOD 06/08/2025 8:21 AM [facility] LAB Potassium 4.7 3.5 - 5.5 mmol/L LAB CHEMISTRY METHOD 06/08/2025 8:21 AM [facility] LAB Chloride 111(H) 96 - 110 mmol/L LAB CHEMISTRY METHOD 06/08/2025 8:21 AM [facility] LAB CO2 27 21 - 32 mmol/L LAB CHEMISTRY METHOD 06/08/2025 8:21 AM [facility] LAB Anion Gap 4 3 - 11 LAB CHEMISTRY METHOD 06/08/2025 8:21 AM [facility] LAB Glucose 134(H) 70 - 100 mg/dL LAB CHEMISTRY METHOD 06/08/2025 8:21 AM [facility] LAB BUN 7 5 - 25 mg/dL LAB CHEMISTRY METHOD 06/08/2025 8:21 AM [facility] LAB Creatinine 0.80 0.50 - 1.10 mg/dL LAB CHEMISTRY METHOD 06/08/2025 8:21 AM [facility] LAB eGFR 73 >=60 mL/min/1. 73m2 LAB CHEMISTRY METHOD 06/08/2025 8:21 AM [facility] LAB Comment:Calculation based on the Chronic Kidney Disease Epidemiology Collaboration (CKD-EPI) equation refit without adjustment for race. BUN/Creatinine Ratio 8.8 LAB CHEMISTRY METHOD 06/08/2025 8:21 AM [facility] LAB Calcium 8.4(L) 8.5 - 10.5 mg/dL LAB CHEMISTRY METHOD 06/08/2025 8:21 AM [facility] LAB AST (SGOT) 49(H) 10 - 42 unit/L LAB CHEMISTRY METHOD 06/08/2025 8:21 AM [facility] LAB ALT (SGPT) 53 10 - 60 unit/L LAB CHEMISTRY METHOD 06/08/2025 8:21 AM [facility] LAB Alkaline Phosphatase 62 42 - 121 unit/L LAB CHEMISTRY METHOD 06/08/2025 8:21 AM EDT [facility] LAB Total Protein 5.5(L) 6.0 - 8.0 g/dL LAB CHEMISTRY METHOD 06/08/2025 8:21 AM EDT [facility] LAB Albumin 2.3(L) 3.2 - 5.0 g/dL LAB CHEMISTRY METHOD 06/08/2025 8:21 AM EDT [facility] LAB Total Bilirubin 0.3 0.0 - 1.4 mg/dL LAB CHEMISTRY METHOD 06/08/2025 8:21 AM T [facility] LAB Blood Venous blood specimen / Unknown Venipuncture / Unknown 06/08/2025 5:39 AM EDT 06/08/2025 7:38 AM EDT us Any Hernandez MD LAB BLOOD ORDERABLES Final Resul t [facility] [address] [place] [address], [place] [phone] * (ABNORMAL) Complete blood count (06/08/2025 5:39 AM EDT) WBC 5.2 4.8 - 10.8 K/mcL LAB HEMETOLOGY METHOD 06/08/2025 8:04 AM [facility] LAB RBC 3.00(L) 3.80 - 4.80 M/mcL LAB HEMETOLOGY METHOD 06/08/2025 8:04 AM EDT [facility] LAB Hemoglobin 9.3(L) 11.5 - 16.0 g/dL LAB HEMETOLOGY METHOD 06/08/2025 8:04 AM T [facility] LAB Hematocrit 29.2(L) 35.0 - 47.0 % LAB HEMETOLOGY METHOD 06/08/2025 8:04 AM EDT [facility] LAB MCV 96.1 79.0 - 98.0 FL LAB HEMETOLOGY METHOD 06/08/2025 8:04 AM EDT [facility] LAB MCH 30.6 27.0 - 32.0 pcg LAB HEMETOLOGY METHOD 06/08/2025 8:04 AM EDT [facility] LAB MCHC 31.8(L) 32.0 - 37.0 g/dL LAB HEMETOLOGY METHOD 06/08/2025 8:04 AM EDT [facility] LAB RDW 14.6 11.0 - 15.0 % LAB HEMETOLOGY METHOD 06/08/2025 8:04 AM EDT [facility] LAB Platelets 315 130 - 400 K/mcL LAB HEMETOLOGY METHOD 06/08/2025 8:04 AM EDT [facility] LAB MPV 9.7 7.0 - 11.0 FL LAB HEMETOLOGY METHOD 06/08/2025 8:04 AM EDT [facility] LAB NRBC 0.0 <1.0 % LAB HEMETOLOGY METHOD 06/08/2025 8:04 AM EDT [facility] LAB NRBC Absolute 0.00 <0.10 K/mcL LAB HEMETOLOGY METHOD 06/08/2025 8:04 AM EDT [facility] LAB Blood Venous blood specimen / Unknown Venipuncture / Unknown 06/08/2025 5:39 AM EDT 06/08/2025 7:38 AM EDT us Any Hernandez MD LAB BLOOD ORDERABLES Final Resul t [facility] [address] [place] [address], documented in this encounter Visit Diagnoses Diagnosis Pneumonia, unspecified organism Chronic kidney disease, unspecified Type 2 diabetes mellitus without complications (CMS/HCC V24, CMS/HCC V28) Vitamin D deficiency, unspecified documented in this encounter Care Teams Endodontic Assistant Relationship Specialty Start Date End Date Cuate Oscar MD [address] [place] [address] Dr Aide Grimaldo [place] PCP - General Internal Medicine 11/11/21 documented as of this encounter
--- OUTSIDE RECORDS SUMMARY | 2025-06-15 15:12 | XMS_ITS | Clinical Summary ---
Author Organization [facility] Address [address] [place] [address] Care Team Providers Care Baker Name Role Phone Unavailable Primary Care Provider [...] Vaccine (1 of 2) 1991 RSV Vaccine 50 years and old er and Patients (1 - 1-dose 75+ series) 2016 COVID-19 Vaccine (2023-2 5 season) 2025 Hepatitis B Vaccines Aged Out No long er eligible based on patient's age to complete this topic
[2025-06-15 18:01] VITALS: BP 129/59; PULSE 60; RESP 12; TEMP 36.4; O2SAT 97
== END 2025-06-15 18:03 | disposition home or self-care (01) ==
PROVIDERS: Emergency Provider Emergency Medicine; PCP Internal Medicine
DX: R91.1 Solitary pulmonary nodule (principal); R94.31 Abnormal electrocardiogram [ECG] [EKG]; Z87.891 Personal history of nicotine dependence; Z95.0 Presence of cardiac pacemaker; Z79.899 Other long term (current) drug therapy
CPT/HCPCS: 71045; 93005; 99283; 99284

== ENCOUNTER → 2025-06-15 14:46 | Outpatient (BNV) | payer MEDICARE, SELFPAY | PROVIDERS: Emergency Provider Emergency Medicine; PCP Internal Medicine; Visit Provider Internal Medicine | DX: R94.31 Abnormal electrocardiogram [ECG] [EKG] (principal); Z95.0 Presence of cardiac pacemaker | CPT/HCPCS: 93010 ==

== ENCOUNTER → 2025-06-15 14:46 | Outpatient (BNV) | payer MEDICARE, SELFPAY | PROVIDERS: Emergency Provider Emergency Medicine; PCP Internal Medicine; Visit Provider Radiology Diagnostic Radiology | DX: J84.9 Interstitial pulmonary disease, unspecified (principal) | CPT/HCPCS: 71045 ==

== ENCOUNTER 2025-06-18 06:59 | Emergency (ER) | payer MEDICARE, SELFPAY ==
--- NOTE | ~2025-06-18 | XR_ITS ---
EXAMINATION: XR CHEST CLINICAL INFORMATION: CHEST PAIN COMPARISON: June 15, 2025. TECHNIQUE: AP and lateral views. FINDINGS: [Reticular pattern. No consolidation, pleural fissure pneumothorax. Cardiomediastinal silhouette size is unchanged and normal. Calcified plaque aorta. Electrode leads from a left-sided pacemaker in the right heart chambers. Multilevel spondylosis. Osteopenia versus osteoporosis. Degenerative changes in the acromion clavicular joints. Patient's large body habitus. XR/XR chest 2V IMPRESSION: Chronic interstitial lung disease. No overt acute airspace disease. Electronically signed by: Lester Jarrell MD 06/18/2025 08:14 AM EDT
[2025-06-18 07:11] VITALS: BP 116/56; BP 97/43; PULSE 60; PULSE 67; RESP 18; TEMP 36.6; O2SAT 97; O2SAT 98; BMI 19.3
--- NOTE | 2025-06-18 07:17 | ECG_ITS ---
Test Reason : chest pain Blood Pressure : */* mmHG Vent. Rate : 63 BPM Atrial Rate : 63 BPM P-R Int : 162 ms QRS Dur : 78 ms QT Int : 384 ms P-R-T Axes : * 35 19 degrees QTcB Int : 392 ms Atrial-paced rhythm Abnormal ECG When compared with ECG of 15-Jun-2025 14:57, No significant changes seen Referred By: Generic ED Physician Electronically Signed By: PAT SANTOS
--- NOTE | 2025-06-18 07:39 | ED.CHESTPAIN ---
HPI - Chest Pain General Chief Complaint: Chest Pain Stated Complaint: CHEST PAIN Time Seen by Provider: 06/18/25 07:19 Source: patient Mode of arrival: EMS Limitations: no limitations History of Present Illness HPI narrative: THIS IS A PLEASANT 85 YEARS OLD [place] WITH A CHIEF COMPLAINT OF SHORTNESS OF BREATH OR CHEST PAIN. PATIENT STATES SHE WOKE UP THIS MORNING THAT SHE WAS SHORT OF BREATH BUT SHE IS FEELING OKAY RIGHT NOW SHE DENIES AT THIS TIME ANY CHEST PAIN SHORTNESS OF BREATH. SHE HAS A HISTORY OF PACEMAKER, HISTORY OF SEIZURE DISORDER, HISTORY OF DIABETES. SHE HAS A AN ORDER FOR DNR DNI DO NOT TRANSFER TO THE HOSPITAL MD complaint: chest pain Onset (ago): hour(s) (2) Timing of current episode: now resolved Prior episodes: No Onset: during rest Pain location: substernal Pain radiation: none Severity: mild Relieving factors: nothing Exacerbating factors: nothing Treatment prior to arrival: none Risk Factors Coronary artery disease risk factors: diabetes Related Data Home Medications ?Medication ?Instructions ?Recorded ?Confirmed latanoprost 0.005 % eye drops 1 drp ophthalmic (eye) BEDTIME 12/30/21 05/31/25 alendronate 70 mg tablet 70 mg PO MO 09/15/23 05/31/25 levetiracetam 500 mg tablet 500 mg PO BID 06/06/24 05/31/25 gabapentin 300 mg capsule 300 mg PO BID 07/03/24 05/31/25 brimonidine 0.2 % eye drops 1 drp BID 05/31/25 05/31/25 cyanocobalamin (vitamin B-12) 1,000 mcg PO TUTH 05/31/25 05/31/25 1,000 mcg capsule estradiol 0.01% (0.1 mg/gram) 1 appl vaginal BEDTIME 05/31/25 05/31/25 vaginal cream (Estrace) ferrous sulfate 325 mg (65 mg 325 mg PO SUTUWETHFRSA 05/31/25 05/31/25 iron) tablet omeprazole 20 mg capsule,delayed 20 mg PO BEDTIME 05/31/25 05/31/25 release polyethylene glycol 3350 17 gram 17 g PO DAILY 05/31/25 05/31/25 oral powder packet (Miralax) psyllium 1 packet PO DAILY 05/31/25 05/31/25 Previous Rx's ?Medication ?Instructions ?Recorded bisacodyl 5 mg tablet,delayed 10 mg (2 x 5 mg) PO BEDTIME PRN 07/06/23 release (Dulcolax (bisacodyl)) constipation 30 days #10 tabs COMPRESSION STOCKINGS - knee-high #2 ea 07/05/24 (medium compression) acetaminophen 500 mg capsule 500 mg PO Q6H PRN fever or pain 10/10/24 #30 caps metformin 500 mg tablet 500 mg PO BID 90 days #180 tabs 01/28/25 Held on 06/07/25. Instructions: Resume on 06/12/25. Follow-up with primary care and resume when CKD improves atorvastatin 40 mg tablet 40 mg PO BEDTIME 90 days #90 tabs 02/14/25 cholecalciferol (vitamin D3) 50 50 mcg PO BID #60 tabs 04/17/25 mcg (2,000 unit) tablet (Vitamin D3) ciclopirox 0.77 % topical 1 appl topical BID Onychomycosis 6 05/07/25 suspension months #6.6 mL meclizine 12.5 mg tablet 12.5 mg PO TID PRN for dizziness 06/06/25 #90 tabs guaifenesin 100 mg/5 mL oral liquid 50 mg (2.5 mL) PO Q4H PRN Cough 06/07/25 #1,000 mL levofloxacin 750 mg tablet 750 mg PO Q48H 5 days #3 tabs 06/07/25 nutritional supplements (Ensure 1 ea PO TID 30 days #452 grams 06/07/25 Pudding) Allergies Allergy/AdvReac Type Severity Reaction Status Date / Time Penicillins Allergy Intermediate RASH Verified 06/18/25 07:17 Review of Systems Constitutional: Constitutional: Reports no additional constitutional complaints ENT: Reports system reviewed and no additional complaints, except as documented Cardiovascular: Cardiovascular: Reports no additional cardiovascular complaints PMFSH Past Medical History Attestation statement: The following information was validated with the patient. Source: old records reviewed Medical History Osteoporosis (~2007) Tubular adenoma of colon (~2019) Post-menopausal Left arm swelling Swelling of lymph node Cardiac pacemaker in situ (~2018) Sick sinus syndrome Insomnia Degenerative joint disease Nocturnal leg cramps Dementia without behavioral disturbance GERD (gastroesophageal reflux disease) Constipation Vitamin D deficiency Neuropathy Vitamin B12 deficiency Epilepsy (~1998) Anemia Sinus bradycardia Pure hypercholesterolemia Diabetes mellitus Surgical History History of endoscopy History of ankle surgery (~2011) History of partial gastrectomy History of colonoscopy History of pacemaker (~2018) History of hysterectomy Family History Family History Father Medical history unknown Mother No problems noted. Daughter No problems noted. Son No problems noted. Other Substance use disorder Social History Social History Household Members: Children Housing: House Are you a primary career development engineer to a significant other at home: No Do you presently have visiting nurse or other home services: Yes (FINANCIAL SECRETARY services) Alcohol intake: never Patient Tobacco Use Status: Former Tobacco user Tobacco use type: Cigarette e-Cigarette/Vaping Use: Never Used Second Hand Smoke Exposure: No Use of substances other than those prescribed or required for medical reasons: No Advance Directives: Yes Advance Directives on File: Yes Advance Directives Date on File: 10/03/24 Do you have a plan to hurt others: No Plan service: No Current occupational 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 Current occupational exposures/hazards: No Cognitive needs: No Hearing needs: No Vision needs: Yes Physical Exam Exam: Exam: SHE LOOKS WELL SHE IS NOT TOXIC-APPEARING BLOOD PRESSURE IS 97/43, SHE RUNS A BASELINE LOW BP DOCUMENTED BY THE NURSING FACILITY HEART RATE IS 67 SHE IS AFEBRILE SHE HAS A SAT ON 98% ON ROOM AIR Vital Signs: Vital Signs: Last Vital Signs Temp 97.9 F 06/18/25 11:53 Pulse 68 06/18/25 11:53 Resp 16 06/18/25 11:53 BP 100/53 L 06/18/25 11:53 Pulse Ox 98 06/18/25 11:53 O2 Del Method Room Air 06/18/25 11:53 BMI result Body Mass Index 19.3 Const: General: cooperative Nutritional Appearance: average body habitus Orientation/consciousness: patient oriented x3 HEENT: Head: Yes normal to inspection General nose exam: Normal external nose present Face and sinus: Yes normal facial exam Neck: Neck: Yes normal visual inspection Chest: Chest palpation & inspection: normal inspection of the chest Resp: Effort & Inspection: normal respiratory effort and able to speak in complete sentences Auscultation: clear to auscultation bilaterally Cardio: Jugular venous distension: no JVD Rate: regular rate Rhythm: regular rhythm GI: Inspection: Yes normal to inspection Palpation (GI): Soft to palpation, not firm and nontender : General: Yes no CVA tenderness Back/Spine/Pelvis: Back: no CVA tenderness Skin: General skin exam: no rashes or lesions noted and elasticity normal Lesions: no lesions Rashes: no rashes Neuro: General: patient oriented x3 Cranial nerves: Yes CN's II-XII intact bilaterally Medical Decision Making Medical Decision Making MDM Narrative: PATIENT IS HERE WITH SHORTNESS OF BREATH OR CHEST PAIN WE WILL GO AHEAD AND DO AN EKG A CHEST X-RAY HIGH SENSITIVE TROPONIN AT THIS TIME SHE IS CHEST PAIN FREE SHE DENIES ANY SHORTNESS OF BREATH SAT IS 98% Differential Diagnosis Differential Diagnoses: The differential diagnosis associated with the presentation includes ACUTE CORONARY SYNDROME/CONGESTIVE HEART FAILURE/PNEUMONIA Admission/Observation Consideration of admission/observation: Escalation of care including admission/observation considered Lab Data 06/18/25 08:01 06/18/25 08:01 Labs: Lab Results 06/18/25 06/18/25 06/18/25 Range/Units 07:35 07:36 08:01 WBC 4.7 L (4.8-10.8) X10*3/uL RBC 2.97 L (4.20-5.50) X10*6/uL Hgb 9.1 L (12.0-16.0) g/dl Hct 28.0 L (37.0-47.0) % MCV 94.3 (80.0-98.0) fL MCH 30.6 (27.0-33.0) pg MCHC 32.5 (31.0-35.0) g/dl RDW 14.6 (11.0-16.0) % Plt Count 289 (160-400) X10*3/uL MPV 9.9 (9.4-12.3) fL Immature Gran % (Auto) 0.4 (0.0-0.4) % Neut % (Auto) 49.3 (45-73) % Lymph % (Auto) 35.5 (20-40) % Antelope % (Auto) 14.0 H (2-11) % Eos % (Auto) 0.4 (0-4) % Baso % (Auto) 0.4 (0-2) % Lymph # (Auto) 1.7 (1.2-4.9) X10*3/uL Antelope # (Auto) 0.7 (0.1-1.2) X10*3/uL Eos # (Auto) 0.0 (0.0-0.4) X10*3/uL Baso # (Auto) 0.0 (0.0-0.2) X10*3/uL Abs Immat Gran (auto) 0.02 (0.00-0.03) X10*3/uL Absolute Neuts (auto) 2.3 (2.0-8.3) x10*3/uL Absolute Nucleated RBC 0.000 (0.0-0.012) X10*3/uL Nucleated RBC % (auto) 0.0 (0.0-0.2) /100WBC Sodium 140 (135-145) mmol/L Potassium 4.6 (3.3-5.1) mmol/L Chloride 111 H (96-108) mmol/L Carbon Dioxide 21 L (22-29) mmol/L Anion Gap 13 (12-20) BUN 17 H (9-16) mg/dL Creatinine 0.75 (0.5-1.4) mg/dL Estim Creat Clear Calc 38.1 Estimated GFR > 60 Random Glucose 101 (60-115) mg/dL Calcium 8.6 (8.4-10.2) mg/dL Total Bilirubin 0.5 (0.0-1.0) mg/dL Direct Bilirubin 0.2 (0.0-0.5) mg/dL AST 44 H (5-31) U/L ALT 51 H (0-31) U/L Alkaline Phosphatase 74 (39-117) U/L Troponin I High Sens 2.9 (<3.5-17.0) ng/L Total Protein 6.5 (6.5-8.0) g/dL Albumin 3.4 L (3.5-5.0) g/dL COVID-19 (AISHA) Negative (Negative) COVID-19 Clin Com See Note Influenza Type A (ARTURO) Negative (Negative) Influenza Type B (ARTURO) Negative (Negative) Influenza A & B Note See Note S. pyogenes GrpA ARTURO Negative (Negative) Independent Interpretation I performed an independent interpretation of an: EKG Interpretation: EKG SHOWS PACED RHYTHM RATE 63 Discharge Plan Discharge Clinical Impression: Chest pain Qualifiers: Chest pain type: precordial pain Qualified Code(s): R07.2 - Precordial pain Patient Disposition: Xfer Other Transfer Details: long term Instructions: Chest Pain (DC) Prescriptions: No Action metformin 500 mg tablet 500 mg PO BID 90 Days Qty: 180 3RF atorvastatin 40 mg tablet 40 mg PO BEDTIME 90 Days Qty: 90 1RF cholecalciferol (vitamin D3) [Vitamin D3] 50 mcg (2,000 unit) tablet 50 mcg PO BID Qty: 60 1RF meclizine 12.5 mg tablet 12.5 mg PO TID PRN (Reason: for dizziness) Qty: 90 0RF acetaminophen 500 mg capsule 500 mg PO Q6H PRN (Reason: fever or pain) Qty: 30 0RF brimonidine 0.2 % drops 1 drp BID polyethylene glycol 3350 [Miralax] 17 gram Powder In Packet 17 g PO DAILY psyllium Packet 1 packet PO DAILY Rx Instructions: mix into at least 8 oz of water or juice before administering ferrous sulfate 325 mg (65 mg iron) tablet 325 mg PO SUTUWETHFRSA omeprazole 20 mg capsule,delayed release(DR/EC) 20 mg PO BEDTIME estradiol [Estrace] 0.01 % (0.1 mg/gram) cream 1 appl vaginal BEDTIME Rx Instructions: apply a pea sized amount to fingertip and appy cream vaginally at bedtime vaginally daily; cyanocobalamin (vitamin B-12) 1,000 mcg capsule 1,000 mcg PO TUTH levofloxacin 750 mg Tablet 750 mg PO Q48H 5 Days Qty: 3 0RF guaifenesin 100 mg/5 mL Liquid 50 mg PO Q4H PRN (Reason: Cough) Qty: 1000 0RF Ensure Pudding Pudding 1 ea PO TID 30 Days Qty: 452 3RF alendronate 70 mg tablet 70 mg PO MO latanoprost 0.005 % drops 1 drp ophthalmic (eye) BEDTIME bisacodyl [Dulcolax (bisacodyl)] 5 mg tablet,delayed release (DR/EC) 10 mg PO BEDTIME PRN (Reason: constipation) 30 Days Qty: 10 1RF Rx Instructions: to use if no bowel movement for 2-3 days gabapentin 300 mg capsule 300 mg PO BID levetiracetam 500 mg tablet 500 mg PO BID (DME) COMPRESSION STOCKINGS - knee-high (medium compression) small See Rx Instructions .Route .MEDSUPPLY Qty: 2 0RF Rx Instructions: As directed ciclopirox 0.77 % suspension 1 appl topical BID 180 Days Qty: 6.6 3RF Rx Instructions: Applied to fungal toenail daily. Remove build-up at the end of the week. Referrals: Cuate Oscar MD [Primary Care Provider, Internal Medicine] - 06/20/25 Interventions: ED Discharge Assessment Last Done: 06/18/25 11:53 Discharge Date/Time: 06/18/25 11:54 Print Language: Portuguese
--- OUTSIDE RECORDS SUMMARY | 2025-06-18 07:59 | XMS_ITS | Encounter Summary ---
Author Organization [facility] Address [address] [place] [address] Care Team Providers Care Graphics Programmer Name Role Phone Cuate Oscar MD Primary Care Provider + [phone] Encounter Details Date Type Department Care Team (Late Contact Info) Description 06/12/2025 Lab Requisition [facility] - Main Lab [address] [place] [phone] Any Hernandez MD [address] [place] [address] Other seizures (CMS/HCC V24, CMS/HCC [...] 11:15 AM EST Appointment [facility] - [place] [phone] 07/21/2025 11:00 AM EST Office Visit Endocrinology - [address] [phone] Marta Milian PA [address] [place] [address] documented as of this encounter Procedures Procedure Name Priority Date/Time Associated Diagnosis Comments LEVETIRACETAM LEVEL Routine 06/12/2025 7 :15 AM EDT Other seizures (CMS/HCC V24, CMS/HCC V28) documented in this encounter Results * Levetiracetam level (06/12/2025 7:15 AM EDT) Levetiracetam 32.5 3.0 - 60.0 ug/mL 06/16/2025 7:15 AM EDT [facility] Comment: Steady state trough serum or plasma levels following doses of 1000 to 3000 mg/Day: 3 to 37 ug/mL. The same dosage regimen will typically result in peak levels of 10 to 60 ug/mL, at approximately 1.5 hours post dose. If applicable, any drug confirmation testing reported here was developed and the performance characteristics determined by [facility]. This confirmation testing has not been cleared or approved by the FDA. The laboratory is regulated under CLIA as qualified to perform high-complexity testing. This test is used for patient testing purposes. It should not be regarded as investigational or for research. Test performed at [facility], [address] , [place], [place] [id number] Heather Albert MD, PhD - Bit Sharpener Blood Venous blood specimen / Unknown Venipuncture / Unknown 06/12/2025 7:15 AM EDT 06/12/2025 8:59 AM EDT us Any Hernandez MD LAB BLOOD ORDERABLES Final Resul t [facility] [address] [place] [address] documented in this encounter Visit Diagnoses Diagnosis Other seizures (CMS/HCC V24, CMS/HCC V28) documented in this encounter Care Teams Graphics Programmer Relationship Specialty Start Date End Date Cuate Oscar MD [address] [place] [address] [address] MON[address] Grimaldo PCP - General Internal Medicine 11/11/21 documented as of this encounter
--- OUTSIDE RECORDS SUMMARY | 2025-06-18 07:59 | XMS_ITS | Encounter Summary ---
Author Organization [facility] Address [address] [place] [address] Care Team Providers Care Fire Operations Forester Name Role Phone Cuate Oscar MD Primary Care Provider + [phone] Encounter Details Date Type Department Care Team (Latest Contact Info) Description 06/08/2025 Lab Requisition [facility] - Main Lab [address] [place] [phone] Any Hernandez MD [address] [place] [phone] Pneumonia, unspecified organism; Chronic kidney disease, unspecified; [...] 11:15 AM EST Appointment [facility] D[facility] - [place] [address] [place] [phone] 07/21/2025 11:00 AM EST Office Visit Endocrinology - [address] [phone] Marta Milian PA [address] [place], [place] [phone] documented as of this encounter Procedures Procedure Name Priority Date/Time Associated Diagnosis Comments COMPLETE BLOOD COUNT Routine 06/08/2025 5:39 AM EDT Pneumonia, unspecified organism Chronic kidney disease, unspecified Type 2 diabetes mellitus without complications ([facility] V24, [facility] V28) Vitamin D deficiency, unspecified HEMOGLOBIN A1C Routine 06/08/2025 5:39 AM EDT Pneumonia, unspecified organism Chronic kidney disease, unspecified Type 2 diabetes mellitus without complications ([facility] V24, [facility] V28) Vitamin D deficiency, unspecified COMPREHENSIVE METABOLIC PANEL Routine 06/08/2025 5:39 AM EDT Pneumonia, unspecified organism Chronic kidney disease, unspecified Type 2 diabetes mellitus without complications ([facility] V24, [facility] V28) Vitamin D deficiency, unspecified documented in this encounter Results * (ABNORMAL) Hemoglobin A1c (06/08/2025 5:39 AM EDT) Hemoglobin A1C 7.1(H) <6.5 % LAB CHEMISTRY METHOD 06/08/2025 1:04 PM EDT [facility] Mean Bld Glu Estim. 157 mg/dL LAB CHEMISTRY METHOD 06/08/2025 1:04 PM EDT [facility] Blood Venous blood specimen / Unknown Venipuncture / Unknown 06/08/2025 5:39 AM EDT 06/08/2025 7:38 AM EDT us Any Hernandez MD LAB BLOOD ORDERABLES Final Resul t [facility] [address] [place] [address], * (ABNORMAL) Comprehensive metabolic panel (06/08/2025 5:39 AM EDT) Pathologist [facility] Sodium 142 133 - 145 mmol/L LAB CHEMISTRY METHOD 06/08/2025 8:21 AM [facility] Potassium 4.7 3.5 - 5.5 mmol/L LAB CHEMISTRY METHOD 06/08/2025 8:21 AM [facility] Chloride 111(H) 96 - 110 mmol/L LAB CHEMISTRY METHOD 06/08/2025 8:21 AM [facility] CO2 27 21 - 32 mmol/L LAB CHEMISTRY METHOD 06/08/2025 8:21 AM [facility] Anion Gap 4 3 - 11 LAB CHEMISTRY METHOD 06/08/2025 8:21 AM [facility] Glucose 134(H) 70 - 100 mg/dL LAB CHEMISTRY METHOD 06/08/2025 8:21 AM [facility] BUN 7 5 - 25 mg/dL LAB CHEMISTRY METHOD 06/08/2025 8:21 AM [facility] Creatinine 0.80 0.50 - 1.10 mg/dL LAB CHEMISTRY METHOD 06/08/2025 8:21 AM [facility] eGFR 73 >=60 mL/min/1. 73m2 LAB CHEMISTRY METHOD 06/08/2025 8:21 AM [facility] Comment:Calculation based on the Chronic Kidney Disease Epidemiology Collaboration (CKD-EPI) equation refit without adjustment for race. BUN/Creatinine Ratio 8.8 LAB CHEMISTRY METHOD 06/08/2025 8:21 AM [facility] Calcium 8.4(L) 8.5 - 10.5 mg/dL LAB CHEMISTRY METHOD 06/08/2025 8:21 AM [facility] AST (SGOT) 49(H) 10 - 42 unit/L LAB CHEMISTRY METHOD 06/08/2025 8:21 AM [facility] ALT (SGPT) 53 10 - 60 unit/L LAB CHEMISTRY METHOD 06/08/2025 8:21 AM [facility] Alkaline Phosphatase 62 42 - 121 unit/L LAB CHEMISTRY METHOD 06/08/2025 8:21 AM EDT [facility] Total Protein 5.5(L) 6.0 - 8.0 g/dL LAB CHEMISTRY METHOD 06/08/2025 8:21 AM EDT [facility] Albumin 2.3(L) 3.2 - 5.0 g/dL LAB CHEMISTRY METHOD 06/08/2025 8:21 AM EDT [facility] Total Bilirubin 0.3 0.0 - 1.4 mg/dL LAB CHEMISTRY METHOD 06/08/2025 8:21 AM T [facility] Blood Venous blood specimen / Unknown Venipuncture / Unknown 06/08/2025 5:39 AM EDT 06/08/2025 7:38 AM EDT us Any Hernandez MD LAB BLOOD ORDERABLES Final Resul t [facility] [address] [place] [address], [place] [phone] * (ABNORMAL) Complete blood count (06/08/2025 5:39 AM EDT) WBC 5.2 4.8 - 10.8 K/mcL LAB HEMETOLOGY METHOD 06/08/2025 8:04 AM [facility] RBC 3.00(L) 3.80 - 4.80 M/mcL LAB HEMETOLOGY METHOD 06/08/2025 8:04 AM EDT [facility] Hemoglobin 9.3(L) 11.5 - 16.0 g/dL LAB HEMETOLOGY METHOD 06/08/2025 8:04 AM T [facility] Hematocrit 29.2(L) 35.0 - 47.0 % LAB HEMETOLOGY METHOD 06/08/2025 8:04 AM EDT [facility] MCV 96.1 79.0 - 98.0 FL LAB HEMETOLOGY METHOD 06/08/2025 8:04 AM EDT [facility] MCH 30.6 27.0 - 32.0 pcg LAB HEMETOLOGY METHOD 06/08/2025 8:04 AM EDT [facility] MCHC 31.8(L) 32.0 - 37.0 g/dL LAB HEMETOLOGY METHOD 06/08/2025 8:04 AM EDT [facility] RDW 14.6 11.0 - 15.0 % LAB HEMETOLOGY METHOD 06/08/2025 8:04 AM EDT [facility] Platelets 315 130 - 400 K/mcL LAB HEMETOLOGY METHOD 06/08/2025 8:04 AM EDT [facility] MPV 9.7 7.0 - 11.0 FL LAB HEMETOLOGY METHOD 06/08/2025 8:04 AM EDT [facility] NRBC 0.0 <1.0 % LAB HEMETOLOGY METHOD 06/08/2025 8:04 AM EDT [facility] NRBC Absolute 0.00 <0.10 K/mcL LAB HEMETOLOGY METHOD 06/08/2025 8:04 AM EDT [facility] Blood Venous blood specimen / Unknown Venipuncture / Unknown 06/08/2025 5:39 AM EDT 06/08/2025 7:38 AM EDT us Any Hernandez MD LAB BLOOD ORDERABLES Final Resul t [facility] [address] [place] [address], documented in this encounter Visit Diagnoses Diagnosis Pneumonia, unspecified organism Chronic kidney disease, unspecified Type 2 diabetes mellitus without complications (CMS/HCC V24, CMS/HCC V28) Vitamin D deficiency, unspecified documented in this encounter Care Teams Fire Operations Forester Relationship Specialty Start Date End Date Cuate Oscar MD [address] [place] [address] Dr Aide Grimaldo [place] PCP - General Internal Medicine 11/11/21 documented as of this encounter
--- OUTSIDE RECORDS SUMMARY | 2025-06-18 07:59 | XMS_ITS | Clinical Summary ---
Author Organization [facility] Address [address] [place] [address] Care Team Providers Care Scaler Packer Name Role Phone Unavailable Primary Care Provider [...]
--- OUTSIDE RECORDS SUMMARY | 2025-06-18 07:59 | XMS_ITS | Clinical Summary ---
Author Organization [facility] [address] [place] [address] [place] [phone] Phone Care Team Providers Care Jet Handler Name Role Phone Cuate Oscar MD Primary Care Provider + [phone] Allergies Active Allergy Reactions Criticality Noted Date [...] Problems Problem Noted Date Diagnosed Date Hyperparathyroidism ([facility] [place] V24) 01/02/2024 Age-related osteoporosis wit hout current pathological fracture 06/27/2023 Encounters Date Type Department Care Team Description 06/12/2025 Lab Requisition [facility] Main Lab [address] [facility] [place] [address] Any Hernandez MD Other seizures ([facility] [place] V24, [facility] [place] [place] V28) 06/08/2025 Lab Requisition [facility] Lab [address] [facility] [place] [address] Any Hernandez MD Pneumonia, unspecified organism; Chronic kidney disease, unspecified; Type 2 diabetes mellitus without complications ([facility] [place] V24, [facility] [place] [place] V28); Vitamin D deficiency, unspecified from Last [...] 11:15 AM EST Appointment Bone Density - [place] [address] [place], [place] [phone] 07/21/2025 11:00 AM EST Office Visit Endocrinology - [place] [address] [place], [place] [phone] Marta Milian PA [address] [place] [address] Health Maintenance Due Date Last Done Comments [...] 06/12/2025 7 :15 AM EDT Other seizures ([facility] V24, [facility] V28) HEMOGLOBIN A1C Routine 06/08/2025 5:39 AM EDT Pneumonia, unspecified organism Chronic kidney disease, unspecified Type 2 diabetes mellitus without complications ([facility] V24, [facility] V28) Vitamin D deficiency, unspecified COMPREHENSIVE METABOLIC PANEL Routine 06/08/2025 5:39 AM EDT Pneumonia, unspecified organism Chronic kidney disease, unspecified Type 2 diabetes mellitus without complications ([facility] V24, [facility] V28) Vitamin D deficiency, unspecified COMPLETE BLOOD COUNT Routine 06/08/2025 5:39 AM EDT Pneumonia, unspecified organism Chronic kidney disease, unspecified Type 2 diabetes mellitus without complications ([facility] V24, [facility] V28) Vitamin D deficiency, unspecified from Last 3 Months Results * Levetiracetam level (06/12/2025 7:15 AM EDT) Pathologist [facility] Levetiracetam 32.5 3.0 - 60.0 ug/mL 06/16/2025 7:15 AM EDT [facility] Comment: Steady state trough serum or plasma levels following doses of 1000 to 3000 mg/Day: 3 to 37 ug/mL. The same dosage regimen will typically result in peak levels of 10 to 60 ug/mL, at approximately 1.5 hours post dose. If applicable, any drug confirmation testing reported here was developed and the performance characteristics determined by [facility]. This confirmation testing has not been cleared or approved by the FDA. The laboratory is regulated under CLIA as qualified to perform high-complexity testing. This test is used for patient testing purposes. It should not be regarded as investigational or for research. Test performed at [facility], [address] , [place], [place] [id number] Heather Albert MD, PhD - Power Line Lineman Blood Venous blood specimen / Unknown Venipuncture / Unknown 06/12/2025 7:15 AM EDT 06/12/2025 8:59 AM EDT us Any Hernandez MD LAB BLOOD ORDERABLES Final Resul t [facility] [address] [place] [address] * (ABNORMAL) Complete blood count (06/08/2025 5:39 AM EDT) Pathologist [facility] WBC 5.2 4.8 - 10.8 K/mcL LAB HEMETOLOGY METHOD 06/08/2025 8:04 AM EDT [facility] RBC 3.00(L) 3.80 - 4.80 M/mcL LAB HEMETOLOGY METHOD 06/08/2025 8:04 AM EDT [facility] Hemoglobin 9.3(L) 11.5 - 16.0 g/dL LAB HEMETOLOGY METHOD 06/08/2025 8:04 AM EDT [facility] Hematocrit 29.2(L) 35.0 - 47.0 % LAB HEMETOLOGY METHOD 06/08/2025 8:04 AM EDT [facility] MCV 96.1 79.0 - 98.0 FL LAB HEMETOLOGY METHOD 06/08/2025 8:04 AM EDT [facility] MCH 30.6 27.0 - 32.0 pcg LAB HEMETOLOGY METHOD 06/08/2025 8:04 AM EDT [facility] MCHC 31.8(L) 32.0 - 37.0 g/dL LAB HEMETOLOGY METHOD 06/08/2025 8:04 AM EDT [facility] RDW 14.6 11.0 - 15.0 % LAB HEMETOLOGY METHOD 06/08/2025 8:04 AM EDT [facility] Platelets 315 130 - 400 K/mcL LAB HEMETOLOGY METHOD 06/08/2025 8:04 AM EDT [facility] MPV 9.7 7.0 - 11.0 FL LAB HEMETOLOGY METHOD 06/08/2025 8:04 AM EDT [facility] NRBC 0.0 <1.0 % LAB HEMETOLOGY METHOD 06/08/2025 8:04 AM EDT [facility] NRBC Absolute 0.00 <0.10 K/mcL LAB HEMETOLOGY METHOD 06/08/2025 8:04 AM T [facility] Blood Venous blood specimen / Unknown Venipuncture / Unknown 06/08/2025 5:39 AM EDT 06/08/2025 7:38 AM EDT us Any Hernandez MD LAB BLOOD ORDERABLES Final Resul t [facility] [address] [place] [address], * (ABNORMAL) Hemoglobin A1c (06/08/2025 5:39 AM EDT) [facility] Hemoglobin A1C 7.1(H) <6.5 % LAB CHEMISTRY METHOD 06/08/2025 1:04 PM EDT [facility] Mean Bld Glu Estim. 157 mg/dL LAB CHEMISTRY METHOD 06/08/2025 1:04 PM [facility] Blood Venous blood specimen / Unknown Venipuncture / Unknown 06/08/2025 5:39 AM EDT 06/08/2025 7:38 AM EDT us Any Hernandez MD LAB BLOOD ORDERABLES Final Resul t [facility] [address] [place] [address], * (ABNORMAL) Comprehensive metabolic panel (06/08/2025 5:39 AM EDT) [facility] Sodium 142 133 - 145 mmol/L LAB CHEMISTRY METHOD 06/08/2025 8:21 AM [facility] Potassium 4.7 3.5 - 5.5 mmol/L LAB CHEMISTRY METHOD 06/08/2025 8:21 AM [facility] Chloride 111(H) 96 - 110 mmol/L LAB CHEMISTRY METHOD 06/08/2025 8:21 AM [facility] CO2 27 21 - 32 mmol/L LAB CHEMISTRY METHOD 06/08/2025 8:21 AM [facility] Anion Gap 4 3 - 11 LAB CHEMISTRY METHOD 06/08/2025 8:21 AM [facility] Glucose 134(H) 70 - 100 mg/dL LAB CHEMISTRY METHOD 06/08/2025 8:21 AM [facility] BUN 7 5 - 25 mg/dL LAB CHEMISTRY METHOD 06/08/2025 8:21 AM [facility] Creatinine 0.80 0.50 - 1.10 mg/dL LAB CHEMISTRY METHOD 06/08/2025 8:21 AM [facility] eGFR 73 >=60 mL/min/1. 73m2 LAB CHEMISTRY METHOD 06/08/2025 8:21 AM [facility] Comment:Calculation based on the Chronic Kidney Disease Epidemiology Collaboration (CKD-EPI) equation refit without adjustment for race. BUN/Creatinine Ratio 8.8 LAB CHEMISTRY METHOD 06/08/2025 8:21 AM [facility] Calcium 8.4(L) 8.5 - 10.5 mg/dL LAB CHEMISTRY METHOD 06/08/2025 8:21 AM [facility] AST (SGOT) 49(H) 10 - 42 unit/L LAB CHEMISTRY METHOD 06/08/2025 8:21 AM [facility] ALT (SGPT) 53 10 - 60 unit/L LAB CHEMISTRY METHOD 06/08/2025 8:21 AM [facility] Alkaline Phosphatase 62 42 - 121 unit/L LAB CHEMISTRY METHOD 06/08/2025 8:21 AM [facility] Total Protein 5.5(L) 6.0 - 8.0 g/dL LAB CHEMISTRY METHOD 06/08/2025 8:21 AM [facility] Albumin 2.3(L) 3.2 - 5.0 g/dL LAB CHEMISTRY METHOD 06/08/2025 8:21 AM [facility] Total Bilirubin 0.3 0.0 - 1.4 mg/dL LAB CHEMISTRY METHOD 06/08/2025 8:21 AM [facility] Blood Venous blood specimen / Unknown Venipuncture / Unknown 06/08/2025 5:39 AM EDT 06/08/2025 7:38 AM EDT us Any Hernandez MD LAB BLOOD ORDERABLES Final Resul t [facility] [address] [place] [address], from Last 3 Months Insurance MEDICARE Care Teams Jet Handler Relationship Specialty Start Date End Date Cuate Oscar MD [address] [place] [address] [place] [address] [place] PCP - General Internal Medicine 11/11/21
[2025-06-18 08:04] LABS: MANUAL DIFF FLAG NO
[2025-06-18 08:06] LABS: IDNOW Serial# 08D9AD1C; IDNOW Serial# 58CA691E; Influenza B2 Negative (Negative); Strep A Nucleic Acid Negative (Negative)
[2025-06-18 08:06] LABS: COVID-19 Test Negative (Negative); IDNOW Serial# 55D5AD1C
[2025-06-18 08:09] LABS: Hematocrit 28.0 % (37.0-47.0); Hemoglobin 9.1 g/dl (12.0-16.0); Imm Gran Abs Auto 0.02 X10*3/uL (0.00-0.03); Imm Gran Pct Auto 0.4 % (0.0-0.4); Lymphocytes Absolute Auto 1.7 X10*3/uL (1.2-4.9); Mean Corpuscular HGB Conc 32.5 g/dl (31.0-35.0); Mean Corpuscular Hemoglobin 30.6 pg (27.0-33.0); Mean Corpuscular Volume 94.3 fL (80.0-98.0); NRBC Abs Auto 0.000 X10*3/uL (0.0-0.012); NRBC Pct Auto 0.0 /100WBC (0.0-0.2); Platelet Count 289 X10*3/uL (160-400); Red Blood Count 2.97 X10*6/uL (4.20-5.50); White Blood Count 4.7 X10*3/uL (4.8-10.8)
--- NOTE | 2025-06-18 08:18 | PC.NURSE ---
patient a&ox2, pt c/o chest discomfort 12/28- states the pain is upon palpation, rr equal/non labored lungs diminished- pt dry cough, ekg performed, swabs obtained, labs obtained, model maker plaster applied, family at bedside, call gómez within reach, plan of care ongoing
[2025-06-18 08:20] LABS: Alanine Aminotransferase 51 U/L (0-31); Albumin Level 3.4 g/dL (3.5-5.0); Alkaline Phosphatase 74 U/L (39-117); Anion Gap 13 (12-20); Aspartate Amino Transferase 44 U/L (5-31); Blood Urea Nitrogen 17 mg/dL (9-16); Calcium 8.6 mg/dL (8.4-10.2); Carbon Dioxide 21 mmol/L (22-29); Chloride 111 mmol/L (96-108); Creatinine Clr Calc Pharmacy 38.1; Estimated Glomerular Filt Rate > 60; Potassium 4.6 mmol/L (3.3-5.1); Sodium 140 mmol/L (135-145); Total Protein 6.5 g/dL (6.5-8.0)
[2025-06-18 08:28] LABS: Troponin-I High Sensitivity 2.9 ng/L (<3.5-17.0)
[2025-06-18 09:20] VITALS: PULSE 65
--- NOTE | 2025-06-18 09:52 | PC.NURSE ---
report called to renassance to Elisabeth RN/superintendent marine.
[2025-06-18 10:22] VITALS: BP 101/52; PULSE 66; RESP 16; TEMP 36.7; O2SAT 98
[2025-06-18 11:53] VITALS: BP 100/53; PULSE 68; RESP 16; TEMP 36.6; O2SAT 98
== END 2025-06-18 11:54 | disposition other institution (70) ==
PROVIDERS: Emergency Provider Emergency Medicine; PCP Internal Medicine
DX: R07.2 Precordial pain (principal); R06.02 Shortness of breath; G40.909 Epilepsy, unspecified, not intractable, without status epilepticus; E11.9 Type 2 diabetes mellitus without complications; Z95.0 Presence of cardiac pacemaker; Z79.899 Other long term (current) drug therapy
CPT/HCPCS: 36415; 71046; 80048; 80076; 84484; 85025; 87502; 87635; 87651; 93005; 99285

== ENCOUNTER → 2025-06-18 07:17 | Outpatient (BNV) | payer MEDICARE, SELFPAY | PROVIDERS: Emergency Provider Emergency Medicine; PCP Internal Medicine; Visit Provider Internal Medicine | DX: R94.31 Abnormal electrocardiogram [ECG] [EKG] (principal); Z95.0 Presence of cardiac pacemaker | CPT/HCPCS: 93010 ==

== ENCOUNTER → 2025-06-18 07:38 | Outpatient (BNV) | payer MEDICARE, SELFPAY | PROVIDERS: Emergency Provider Emergency Medicine; PCP Internal Medicine; Visit Provider Radiology Diagnostic Radiology | DX: J84.9 Interstitial pulmonary disease, unspecified (principal) | CPT/HCPCS: 71046 ==

== ENCOUNTER 2025-07-08 10:29 | Outpatient (AMB) | payer MEDICARE, SELFPAY ==
[2025-07-08 10:38] VITALS: BMI 19.2
--- NOTE | 2025-07-08 10:38 | A.OFFVIS_ITS ---
Vital Signs 07/08/25 10:38 Height 4 ft 11 in Weight 95 lb BMI 19.2 Intake Visit Reasons: Follow Up Tinea Unguium Intake Note: Natividad is an 85 year old female who presents today for a follow up on her Tinea unguium. At her last visit a bilateral hallux Slant back nail debridement procedure was performed. She was instructed to perform Epsom salt soaks daily, and she was prescribed ciclopirox for her tinea unguium. Patient son states she has been doing better with her toes and she had used the ciclopirox for a few weeks. Patient was in rehab for about 1.5 months after a fall Allergies Penicillins Allergy (Intermediate, Verified 06/18/25 07:17) RASH HPI HPI Follow Up Tinea Unguium: Details: 85-year-old female with past medical history of diabetes mellitus type 2, coronary artery disease with pacemaker, osteoporosis who returns for painful ingrown right toenail. She was recently admitted at a subacute rehab facility for pneumonia. She has been unable to do the soaks because of that. She has been applying the topical upper sorbian. History: She states that she has had chronic ingrown nails in the past. She saw a clinical dietitian who had performed a total nail avulsion, which only treated her symptoms temporarily. She also had a painful experience, stating that the numbing injection did not work. The patient has done states that he trims her toenails daily to prevent any recurrent ingrown nails however the symptoms have returned. They have also tried topical antifungal medications which have not worked. She denies any other pedal complaints at this time. [facility] Medical History Osteoporosis (~2007) Tubular adenoma of colon (~2019) Post-menopausal Left arm swelling Swelling of lymph node Cardiac pacemaker in situ (~2018) Sick sinus syndrome Insomnia Degenerative joint disease Nocturnal leg cramps Dementia without behavioral disturbance GERD (gastroesophageal reflux disease) Constipation Vitamin D deficiency Neuropathy Vitamin B12 deficiency Epilepsy (~1998) Anemia Sinus bradycardia Pure hypercholesterolemia Diabetes mellitus Surgical History History of endoscopy History of ankle surgery (~2011) History of partial gastrectomy History of colonoscopy History of pacemaker (~2018) History of hysterectomy Family History Father Medical history unknown Mother No problems noted. Daughter No problems noted. Son No problems noted. 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 Nails: Thickened dystrophic incurvated nail right foot, medial border ingrown. Left hallux nail thickened and discolored, ingrown to the lateral border. No erythema or clinical signs of infection. Neuro: Protective sensation grossly intact to bilateral lower extremities. Msk: Deformities: No evidence of hammertoes, bunions, Charcot changes, or other structural abnormalities. Muscle strength: 5/5 in all muscle groups. Gait: Normal, no antalgic or steppage gait observed. Footwear Assessment: Shoes inspected; appropriate fit, no excessive wear, or foreign objects noted. Office Procedures AMB Debridement/Avulsion Podia Details: Procedure: Nail debridement Location: 10 nails, bilateral feet Anesthesia: N/A Description: The affected toenails were cleansed with an antiseptic solution. Using sterile nail nippers and a rotary juan daniel, dystrophic and mycotic nail material was carefully debrided and reduced in thickness. Care was taken to avoid trauma to the surrounding skin and nail bed. All debris was removed as tolerated. The area was inspected for signs of infection or ulceration. Patient tolerated the procedure well without complications. Tolerance: Patient tolerated procedure well, no immediate complications. Class B findings as per physical exam findings above. The patient has a diagnosis of diabetes mellitus and presents with elongated, thickened toenails. Due to underlying diabetic neuropathy and mild vascular disease findings, the patient is at increased risk for complications such as ulceration, infection, and difficulty with self-care. Debridement of elongated toenails is medically necessary to prevent development of pressure-related lesions, reduce risk of secondary infection, and maintain foot health in high- risk comorbidities. [id number]-[id number] of Nail 6+ Procedure code (CPT) selection complete Results Reviewed Results Reviewed: Laboratory Tests 04/14/25 04/22/25 10:18 08:41 Hemoglobin A1c % 7.2 H AST 31 ALT 26 Assessment & Plan Assessment & Plan (1) Diabetes mellitus: Code(s): E11.9 - Type 2 diabetes mellitus without complications Category: Medical Qualifiers: Diabetes mellitus type: type 2 Diabetes mellitus rn long term care insulin use: without rn long term care use Diabetes mellitus complication status: with neurologic complications Diabetes mellitus complication detail: with unspecified neuropathy Qualified Code(s): E11.40 - Type 2 diabetes mellitus with diabetic neuropathy, unspecified Plan: Risk Stratification: No current ulceration, infection, or pre-ulcerative lesion. No loss of protective sensation or peripheral arterial disease. No plans for further testing/referrals for non-invasive vascular studies. Patient is at low risk for diabetic foot complications at this time. Recommendations: Continue routine foot care and daily self-inspection. Recommend moisturizing daily. Recommend supportive proper fitting shoe-wear. The patient may require diabetic shoes in the future. Reinforced diabetic foot education and risks from peripheral neuropathy. (2) Onychomycosis: Code(s): B35.1 - Tinea unguium Category: Medical Plan: * Discussed treatment options including topical treatment versus oral antifungal medications. * Continue ciclopirox. * Debrided elongated thickened nails x 10 using sterile nail Nipper (3) Paronychia of great toe of right foot: Code(s): L03.031 - Cellulitis of right toe Category: Medical Plan: * Slant back nail debridement procedure performed to right and left hallux nails. Dressed right hallux with antibiotic ointment and Band-Aid. * Instructed to perform Epsom salt soaks daily. * Follow up in 2 months. Orders: Orders AMB Debridement/Avulsion Podiatry Today B35.1 - Tinea unguium Medications: New clotrimazole 1% (Athlete's Foot (clotrimazole)) Apply to both feet 1 appl topical BID 30 grams 3RF athlete's foot 4 weeks Coding Level of Care Code Est Pt Level 3 (45036) Diagnoses Type 2 diabetes mellitus with diabetic neuropathy, without long-term current use of insulin E11.40 Diabetes mellitus type: type 2 Diabetes mellitus rn long term care insulin use: without chcf use Diabetes mellitus complication status: with neurologic complications Diabetes mellitus complication detail: with unspecified neuropathy Onychomycosis B35.1 Paronychia of great toe of right foot L03.031 CPT Codes Skin Debridement - CPT: 30041-Qdqjyzwnopq of Nail 6+ ([id number]) Time Spent (min) 10
== END 2025-07-08 10:54 | disposition home or self-care (01) ==
LOC: HO.HPODS 10:30
PROVIDERS: PCP Internal Medicine; Visit Provider Student in an Organized Health Care Education/Training Program
DX: E11.40 Type 2 diabetes mellitus with diabetic neuropathy, unspecified (principal); B35.1 Tinea unguium; L03.031 Cellulitis of right toe
CPT/HCPCS: 11721; 99213

== ENCOUNTER → 2025-07-08 10:29 | Outpatient (BNVA) | payer MEDICARE, SELFPAY | PROVIDERS: PCP Internal Medicine; Visit Provider Student in an Organized Health Care Education/Training Program | DX: E11.40 Type 2 diabetes mellitus with diabetic neuropathy, unspecified (principal); B35.1 Tinea unguium; L03.031 Cellulitis of right toe | CPT/HCPCS: 11721; 99212 ==

== ENCOUNTER 2025-07-10 12:18 | Outpatient (AMB) | payer MEDICARE, SELFPAY ==
[2025-07-10 12:31] VITALS: BP 110/64; PULSE 66; BMI 18.3
--- NOTE | 2025-07-10 12:31 | MHC.OFFVIS ---
Vital Signs 07/10/25 12:31 Height 4 ft 11 in Weight 90 lb 6.232 oz BMI 18.3 BP 110/64 Blood Pressure Location Lt brachial Position Sitting Pulse 66 Intake Visit Reasons: r/s 07/09/25 1 yr followup w/ekg w/device ck Intake Note: 1 year follow-up with ekg and Medtronic check c/o leg pain Manager Shop Required: Yes Manager Shop Services: Manager Shop Offered & Declined Middle School Spanish Teacher: Middle School Spanish Teacher Present Accompanied by: Son Allergies Penicillins Allergy (Intermediate, Verified 06/18/25 07:17) RASH Medication List - Last Reconciled 07/10/25 by Everett Lay MD acetaminophen 500 mg PO Q6H PRN alendronate 70 mg PO MO atorvastatin 40 mg PO BEDTIME 90 days bisacodyl (Dulcolax (bisacodyl)) 10 mg (2 x 5 mg) PO BEDTIME PRN 30 days brimonidine 0.2% 1 drp BID cholecalciferol (vitamin D3) (Vitamin D3) 50 mcg PO BID ciclopirox 0.77% 1 appl topical BID 6 months clotrimazole 1% (Athlete's Foot (clotrimazole)) 1 appl topical BID 4 weeks [COMPRESSION STOCKINGS - knee-high (medium compression) As directed] cyanocobalamin (vitamin B-12) 1,000 mcg PO TUTH estradiol 0.01%(0.1mg/gram) (Estrace) 1 appl vaginal BEDTIME ferrous sulfate 325 mg PO SUTUWETHFRSA gabapentin 300 mg PO BID guaifenesin 50 mg (2.5 mL) PO Q4H PRN latanoprost 0.005% 1 drp ophthalmic (eye) BEDTIME levetiracetam 500 mg PO BID meclizine 12.5 mg PO TID PRN metformin 500 mg PO BID 90 days Held on 06/07/25. Instructions: Resume on 06/12/25. Follow-up with primary care and resume when CKD improves nutritional supplements (Ensure Pudding) 1 ea PO TID 30 days omeprazole 20 mg PO BEDTIME polyethylene glycol 3350 (Miralax) 17 grams PO DAILY psyllium 1 packet PO DAILY HPI Comments Details: Natividad comes for follow-up. Since I last saw her she has a frequent falls and then at 1 time required subacute rehab for reconditioning. He walks in his back home now but walks with a walker. Remains at fall risk. Sudden is also concerned about the mobility of the pacemaker in the pacemaker pocket. She has not had any syncopal episodes. She denies any other cardiac complaints. [facility] Medical History Osteoporosis (~2007) Tubular adenoma of colon (~2019) Post-menopausal Left arm swelling Swelling of lymph node Cardiac pacemaker in situ (~2018) Sick sinus syndrome Insomnia Degenerative joint disease Nocturnal leg cramps Dementia without behavioral disturbance GERD (gastroesophageal reflux disease) Constipation Vitamin D deficiency Neuropathy Vitamin B12 deficiency Epilepsy (~1998) Anemia Sinus bradycardia Pure hypercholesterolemia Diabetes mellitus Surgical History History of endoscopy History of ankle surgery (~2011) History of partial gastrectomy History of colonoscopy History of pacemaker (~2018) History of hysterectomy Family History Father Medical history unknown Mother No problems noted. Daughter No problems noted. Son No problems noted. 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 Current occupational exposures/hazards: No Cognitive needs: No Hearing needs: No Vision needs: Yes Review of Systems Const Denies chills, Denies fatigue, Denies fever(s), Denies frequent falls, Denies weakness, Denies weight gain and Denies weight loss ENT Denies dizziness Card Denies chest pain, Denies leg edema, Denies lightheadedness, Denies palpitations, Denies dyspnea, Denies dyspnea on exertion, Denies orthopnea and Denies other (loss of consciousness) Resp Denies cough, Denies dyspnea and Denies dyspnea on exertion GI Denies hematochezia and Denies change in stool character Musc Denies abnormal gait, Denies muscle weakness, Denies numbness, Denies radiating pain into limb and Denies tingling Neuro Denies abnormal gait, Denies dizziness, Denies frequent falls, Denies numbness, Denies tingling and Denies weakness Endo Denies fatigue and Denies palpitations Physical Exam Vital Signs: Last Vital Signs Pulse 66 07/10/25 12:31 BP 110/64 07/10/25 12:31 BMI result Body Mass Index 18.3 Const General: cooperative, comfortable, no acute distress, alert and awake Orientation/consciousness: patient oriented x3 Limitations: no limitations Neck Neck: Yes trachea midline, Yes supple and Yes no JVD Chest Chest palpation & inspection: normal inspection of the chest Resp Effort & Inspection: normal respiratory effort Auscultation: clear to auscultation bilaterally Cardio Jugular venous distension: no JVD Palpation: normal PMI Rate: regular rate Rhythm: regular rhythm Heart sounds: S1 normal heart sound present and S2 normal heart sound present Skin General skin exam: no rashes or lesions noted Neuro General: patient oriented x3 and no focal motor deficits Extrem General: Yes no clubbing, cyanosis or edema Office Procedures EKG Details: EKG shows atrially paced rhythm with normal ventricular sensing 48467-[id number], Complete Assessment & Plan Assessment & Plan (1) Cardiac pacemaker in situ: Onset Date: ~2018 Comment: (Medtronic DCPP - placed 12/2018 - pocket revision 10/2021) Code(s): Z95.0 - Presence of cardiac pacemaker Category: Medical Plan: Cardiac pacemaker in-situ for sick sinus syndrome. Pacemaker is working well. We discussed about lose in his of the pacemaker in the pocket although given her significant loss of subcutaneous and muscular tissue it is going to be difficult to committed to surgery as that has increase risk of infection. This was discussed. Will continue monitor remotely for pacer function. I think she has significant issues with the cognitive mental function as well as her overall frailty and remains at high risk for recurrent falls. Follow up in the clinic in 1 year's time. Coding Level of Care Code Est Pt Level 3 (50998) Complex visit Add On G2211 Diagnoses Cardiac pacemaker in situ Z95.0 CPT Codes EKG - CPT: 57455-[id number], Complete ([id number])
--- OUTSIDE RECORDS SUMMARY | 2025-07-10 18:19 | XMS_ITS | Clinical Summary ---
Author Organization [facility] Address [address] [place] [address] Care Team Providers Care Cleat Feeder Name Role Phone Unavailable Primary Care Provider [...]
== END 2025-07-10 12:56 | disposition home or self-care (01) ==
LOC: HO.HCS 12:18
PROVIDERS: PCP Internal Medicine; Visit Provider Internal Medicine Cardiovascular Disease
DX: I49.5 Sick sinus syndrome (principal); Z95.0 Presence of cardiac pacemaker; R94.31 Abnormal electrocardiogram [ECG] [EKG]
CPT/HCPCS: 93010; 99213; G2211

== ENCOUNTER → 2025-07-10 12:18 | Outpatient (BNVA) | payer MEDICARE, SELFPAY | PROVIDERS: PCP Internal Medicine; Visit Provider Internal Medicine Cardiovascular Disease | DX: Z95.0 Presence of cardiac pacemaker (principal) | CPT/HCPCS: 93005; 99212 ==

== ENCOUNTER 2025-08-07 10:06 | Outpatient (REF) | payer MEDICARE, SELFPAY ==
[2025-08-07 10:34] LABS: MANUAL DIFF FLAG NO
[2025-08-07 11:28] LABS: Hematocrit 37.0 % (37.0-47.0); Hemoglobin 11.4 g/dl (12.0-16.0); Imm Gran Abs Auto 0.00 X10*3/uL (0.00-0.03); Imm Gran Pct Auto 0.0 % (0.0-0.4); Lymphocytes Absolute Auto 1.6 X10*3/uL (1.2-4.9); Mean Corpuscular HGB Conc 30.8 g/dl (31.0-35.0); Mean Corpuscular Hemoglobin 30.6 pg (27.0-33.0); Mean Corpuscular Volume 99.5 fL (80.0-98.0); NRBC Abs Auto 0.000 X10*3/uL (0.0-0.012); NRBC Pct Auto 0.0 /100WBC (0.0-0.2); Platelet Count 220 X10*3/uL (160-400); Red Blood Count 3.72 X10*6/uL (4.20-5.50); White Blood Count 3.5 X10*3/uL (4.8-10.8)
--- OUTSIDE RECORDS SUMMARY | 2025-08-07 12:25 | XMS_ITS | Clinical Summary ---
Author Organization [facility] Address [address] [place] [address] Care Team Providers Care Edge Banding Machine Offbearer Name Role Phone Unavailable Primary Care Provider [...] 75+ series) 2016 COVID-19 Vaccine ( - 2024-2 6 season) 2025 Hepatitis B Vaccines Aged Out No long er eligible based on patient's age to complete this topic
--- OUTSIDE RECORDS SUMMARY | 2025-08-07 12:25 | XMS_ITS | Encounter Summary ---
Author Organization [facility] Address [address] [place] [address] Care Team Providers Care Portable Pinch Riveter Name Role Phone Cuate Oscar MD Primary Care Provider + [phone] Encounter Details Date Type Department Care Team (Late st Contact Info) Description 07/28/2025 Results Follow-Up Endocrinology - [place] [address] [place] [address] Marta Milian PA [address] [place] [address] Social History Tobacco Use Types Packs/Day Years Used Date Smoking Tobacco: Former Cigarettes 0 Q uit: 08/21/2011 Smokeless Tobacco: Never Comments Unknown Sex and Gender Information Value Date Recorded Sex Assigned at Not on file Legal Sex Female 3:49 AM EST Gender Identity Not on file Sexual Orientation Not on file documented as of this encounter Plan of Treatment Upcoming Encounters Date Type Department Care Team (Late st Contact Info) Description 07/21/2026 10:45 AM EST Office Visit Endocrinology - [place] [address] [place] [address] Marta Milian PA [address] [place] [address] documented as of this encounter Visit Diagnoses Not on filedocumented in this encounter Care Teams Portable Pinch Riveter Relationship Specialty Start Date End Date Cuate Oscar MD [address] [place] [address] [place] [address] PCP - General Internal Medicine 11/11/21 documented as of this encounter
--- OUTSIDE RECORDS SUMMARY | 2025-08-07 12:26 | XMS_ITS | Clinical Summary ---
Author Organization [facility] [address] [place] [address] [place] [phone] Phone Care Team Providers Care Medical Laboratory Technical Officer Name Role Phone Cuate Oscar MD Primary Care Provider + [phone] Allergies Active Allergy Reactions Criticality Noted Date [...] Encounters Date Type Department Care Team Description 07/28/2025 Results Follow-Up Endocrinology - [address] [phone] Marta Milian PA 07/21/2025 11:40 AM EST Lab Draw Station - [address] Age-related osteoporosis without current pathological fracture; Hyperparathyroidism ([facility] V24) 07/21/2025 11:00 AM EST Office Visit Endocrinology - [address] [phone] Marta Milian PA Age-related osteoporosis without current pathological fracture (Primary Dx); Hyperparathyroidism ([facility] V24) 07/02/2025 10:53 AM EST - 07/02/2025 11:59 PM EST Hospital Encounter Bone Density - [address] [phone] Age-related osteoporosis without current pathological fracture Discharge Disposition: Home or Self Care 06/12/2025 Lab Requisition [facility] Lab [address] [facility] [place] [address] Any Hernandez MD Other seizures ([facility] V24, [facility] V28) 06/08/2025 Lab Requisition [facility] [address] [facility] [place] [address] Any Hernandez MD Pneumonia, unspecified organism; Chronic kidney disease, unspecified; Type 2 diabetes mellitus without complications ([facility] V24, [facility] V28); Vitamin D deficiency, unspecified from Last 3 Months Social History Tobacco Use Types Packs/Day Years Used Date Smoking Tobacco: Former Cigarettes 0 Q uit: 08/21/2011 Smokeless Tobacco: Never Comments Unknown Sex and Gender Information Value Date Recorded Sex Assigned at Not on file Legal Sex Female 3:49 AM EST Gender Identity Not on file Sexual Orientation Not on file Last Filed Vital Signs Vital Sign Reading Time Taken Comments Blood Pressure 133/56 07/21/2025 11:04 AM EST Pulse 82 07/21/2025 11:04 AM EST Temperature 36.1 C (97 F) 12/30/2024 10:51 AM EDT Respiratory Rate 14 07/21/2025 11:04 AM EST Oxygen Saturation - - Inhaled Oxygen Concentration - - Weight 41.7 kg (92 lb) 07/21/2025 11:04 AM EST Height 142.2 cm (4' 8 ) 07/21/2025 11:04 AM EST Body Mass Index 20.63 07/21/2025 11:04 AM EST Plan of Treatment Upcoming Encounters Date Type Department Care Team (Late st Contact Info) Description 07/21/2026 10:45 AM EST Office Visit Endocrinology - [place] [address] [place] [address] Marta Milian PA [address] [place] [address] Health Maintenance Due Date Last Done Comments Diabetes: Annual Foot Exam 1950 Diabetes: Annual Retina Eye Exam 1950 Cholesterol Screening (Lipid Panel) 07/24/2022 Falls Risk Assessment 07/24/2022 Medicare Annual Wellness Visit 07/24/2022 Social Influencers of Health Screening 07/24/2022 Depression Screening 08/21/2024 Zoster Vaccines (2 of 2) 01/07/2025 11/12/2024 COVID-19 Vaccine ( season) 2025 06/27/2024, 07/09/2021, 01/01/2021 Diabetes: Annual Urine Albumin-Creatinine Ratio (uACR) 06/08/2025 Diabetes: Blood Sugar Control Test (HGBA1C) 12/07/2025 06/08/2025 Diabetes: Annual GFR (Glomerular Filtration Rate) 07/21/2026 07/21/2025, 06/08/2025, 12/30/2024, Additional history exists DTaP,Tdap,and Td Vaccines (2 - Td or Tdap) 03/11/2031 03/11/2021 Osteoporosis Screening (Bone Density Screening) 07/02/2035 07/02/2025 RSV Immunization Adult Patients Completed 06/27/2024 Pneumococcal Vaccine: 50+ Years Completed 11/12/2024 Influenza Vaccine Completed 06/04/2025, , 06/03/2022 HIB Vaccines Aged Out No longer eligi [...] Associated Diagnosis Comments BASIC METABOLIC PANEL Routine 07/21/2025 12:00 PM EST Age-related osteoporosis without current pathological fracture Hyperparathyroidism ([facility] V24) PARATHYROID HORMONE INTACT Routine 07/21/2025 12:00 PM EST Age-related osteoporosis without current pathological fracture Hyperparathyroidism (CMS/HCC V24) BD BONE DENSITY DXA AXIAL SKELETON Routine 07/02/2025 11:28 AM EST Age-related osteoporosis without current pathological fracture LEVETIRACETAM LEVEL Routine 06/12/2025 7 :15 AM EDT Other seizures ([facility] V24, [facility] V28) HEMOGLOBIN A1C Routine 06/08/2025 5:39 AM EDT Pneumonia, unspecified organism Chronic kidney disease, unspecified Type 2 diabetes mellitus without complications ([facility] V24, [facility] V28) Vitamin D deficiency, unspecified COMPREHENSIVE METABOLIC PANEL Routine 06/08/2025 5:39 AM EDT Pneumonia, unspecified organism Chronic kidney disease, unspecified Type 2 diabetes mellitus without complications ([facility] V24, [facility] V28) Vitamin D deficiency, unspecified COMPLETE BLOOD COUNT Routine 06/08/2025 5:39 AM EDT Pneumonia, unspecified organism Chronic kidney disease, unspecified Type 2 diabetes mellitus without complications ([facility] V24, [facility] V28) Vitamin D deficiency, unspecified from Last 3 Months Results * Parathyroid hormone intact (07/21/2025 12:00 PM EST) PTH 32.5 18.5 - 88.0 pcg/mL 07/21/2025 3:07 PM EST [facility] Blood Venous blood specimen / Unknown Venipuncture / Unknown 07/21/2025 12:00 PM EST 07/21/2025 12:00 PM EST us Marta FROST LAB BLOOD ORDERABLES Final Resul t [facility] [address] [place] [address], * (ABNORMAL) Basic metabolic panel (07/21/2025 12:00 PM EST) Sodium 143 133 - 145 mmol/L 07/21/2025 2:36 PM [facility] Potassium 4.2 3.5 - 5.5 mmol/L 07/21/2025 2:36 PM [facility] Chloride 111(H) 96 - 110 mmol/L 07/21/2025 2:36 PM [facility] CO2 23 21 - 32 mmol/L 07/21/2025 2:36 PM [facility] Anion Gap 9 3 - 11 07/21/2025 2:36 PM [facility] Glucose 120(H) 70 - 100 mg/dL 07/21/2025 2:36 PM [facility] BUN 21 5 - 25 mg/dL 07/21/2025 2:36 PM [facility] Creatinine 0.95 0.50 - 1.10 mg/dL 07/21/2025 2:36 PM [facility] eGFR 59(L) >=60 mL/min/1. 73m2 07/21/2025 2:36 PM [facility] Comment:Calculation based on the Chronic Kidney Disease Epidemiology Collaboration (CKD-EPI) equation refit without adjustment for race. BUN/Creatinine Ratio 22.1 07/21/2025 2:36 PM [facility] Calcium 8.3(L) 8.5 - 10.5 mg/dL 07/21/2025 2:36 PM [facility] Blood Venous blood specimen / Unknown Venipuncture / Unknown 07/21/2025 12:00 PM EST 07/21/2025 12:00 PM EST us Marta FROST LAB BLOOD ORDERABLES Final Resul t [facility] [address] [place] [address], [place] [phone] * BD Bone Density DXA Axial Skeleton (07/02/2025 11:28 AM EST) Anatomical Region Laterality Modality Wrist, Hip, L-spine Bone Densito metry 07/14/2025 7:57 PM EST Impressions 07/14/2025 7:59 PM EST Osteoporosis. The NOF guidelines recommend that FDA approved medical therapies be considered in postmenopausal women and men age >50 years with a: i. Hip or vertebral (clinical or morphometric) fracture ii. T score of < -2.5 at the spine or hip iii. 10 year fracture probability by FRAX of >3% for hip fracture, or >20% for major osteoporotic fracture PLEASE NOTE: W.H.O. classification is based on lowest measured density at the spine, femoral neck, or total hip.This classification has prognostic significance when applied to post menopausal women and older men. 1) The World Health Organization defines low BMD as follows: T-score Normal at or > -1 Osteopenia < -1 and > -2.5 Osteoporosis at or < -2.5 without fractures Established osteoporosis < -2.5 with fractures -------- FINAL REPORT -------- Dictated By: Thiago Aguilar Dictated Date: 07/14/2025 19:57 ET Assigned Physician: Thiago Aguilar Reviewed and Electronically Signed By: Thiago Aguilar Signed Date: 07/14/2025 19:59 ET Workstation ID: [id number] Transcribed By: Self Edit Transcribed Date: 07/14/2025 19:57 ET Narrative 07/14/2025 7:59 PM EST Clinical history: post-menopausal osteoporosis prevention Scans of the lumbar spine and hips were performed on a [employer] fan beam bone densitometer. Bone mineral density measurements and associated T and Z scores respectively are as follows: Lumbar Spine: L1-L4 BMD: 0.737 g/cm2 T-Score: -2.8 Z-Score: 0 Left Proximal Femur: Neck BMD: 0.507 g/cm2 T-Score: -3.1 Z-Score: -0.6 Total BMD: 0.634 g/cm2 T-Score: -2.5 Z-Score: -0.2 Wrist: 1/3 BMD: 0.423 g/cm2 T-Score: -4.5 Z-Score: -0.9 Compared with standards for the young adult, lowest measured bone density places the patient in the W.H.O. osteoporotic range. Procedure Note Thiago Aguilar MD - 07/14/2025 Clinical history: post-menopausal osteoporosis prevention Scans of the lumbar spine and hips were performed on a [employer] beam bone densitometer. Bone mineral density measurements and associated T and Z scoresrespectively are as follows: Lumbar Spine: L1-L4 BMD: 0.737 g/cm2 T-Score: -2.8 Z-Score: 0 Left Proximal Femur: Neck BMD: 0.507 g/cm2 T-Score: -3.1 Z-Score: -0.6 Total BMD: 0.634 g/cm2 T-Score: -2.5 Z-Score: -0.2 Wrist: 1/3 BMD: 0.423 g/cm2 T-Score: -4.5 Z-Score: -0.9 Compared with standards for the young adult, lowest measured bone densityplaces the patient in the W.H.O. osteoporotic range. IMPRESSION: Osteoporosis. The NOF guidelines recommend that FDA approved medical therapies beconsidered in postmenopausal women and men age >50 years with a: i. Hip or vertebral (clinical or morphometric) fracture ii. T score of < -2.5 at the spine or hip iii. 10 year fracture probability by FRAX of >3% for hip fracture, or >20%for major osteoporotic fracture PLEASE NOTE: W.H.O. classification is based on lowest measured density at the spine,femoral neck, or total hip.This classification has prognostic significancewhen applied to post menopausal women and older men. 1) The World Health Organization defines low BMD as follows: T-score Normal at or > -1 Osteopenia < -1 and > -2.5 Osteoporosis at or < -2.5 withoutfractures Established osteoporosis < -2.5 with fractures -------- FINAL REPORT -------- Dictated By: Thiago Aguilar Dictated Date: 07/14/2025 19:57 ET Assigned Physician: Thiago Aguilar Reviewed and Electronically Signed By: Thiago Aguilar Signed Date: 07/14/2025 19:59 ET Workstation ID: [id number] Transcribed By: Self Edit Transcribed Date: 07/14/2025 19:57 ET Marta FROST IMG DXA PROCEDURES Final Result * Levetiracetam level (06/12/2025 7:15 AM EDT) [...] developed and the performance characteristics determined by [facility]. This confirmation testing has not been cleared or approved by the FDA. The laboratory is regulated under CLIA as qualified to perform high-complexity testing. This test is used for patient testing purposes. It should not be regarded as investigational or for research. Test performed at [facility], [address], [place] [address] Heather Albert MD, PhD - Vp Production Blood Venous blood specimen / Unknown Venipuncture / Unknown 06/12/2025 7:15 AM EDT 06/12/2025 8:59 AM EDT us Any Hernandez MD LAB BLOOD ORDERABLES Final Resul t [facility] [address] [place] [address] * (ABNORMAL) Complete blood count (06/08/2025 5:39 AM EDT) WBC 5.2 4.8 - 10.8 K/mcL LAB HEMETOLOGY METHOD 06/08/2025 8:04 AM EDT [facility] RBC 3.00(L) 3.80 - 4.80 M/mcL LAB HEMETOLOGY METHOD 06/08/2025 8:04 AM [facility] Hemoglobin 9.3(L) 11.5 - 16.0 g/dL LAB HEMETOLOGY METHOD 06/08/2025 8:04 AM [facility] Hematocrit 29.2(L) 35.0 - 47.0 % LAB HEMETOLOGY METHOD 06/08/2025 8:04 AM [facility] MCV 96.1 79.0 - 98.0 FL LAB HEMETOLOGY METHOD 06/08/2025 8:04 AM [facility] MCH 30.6 27.0 - 32.0 pcg LAB HEMETOLOGY METHOD 06/08/2025 8:04 AM [facility] MCHC 31.8(L) 32.0 - 37.0 g/dL LAB HEMETOLOGY METHOD 06/08/2025 8:04 AM [facility] RDW 14.6 11.0 - 15.0 % LAB HEMETOLOGY METHOD 06/08/2025 8:04 AM [facility] Platelets 315 130 - 400 K/mcL LAB HEMETOLOGY METHOD 06/08/2025 8:04 AM [facility] MPV 9.7 7.0 - 11.0 FL LAB HEMETOLOGY METHOD 06/08/2025 8:04 AM [facility] NRBC 0.0 <1.0 % LAB HEMETOLOGY METHOD 06/08/2025 8:04 AM [facility] NRBC Absolute 0.00 <0.10 K/mcL LAB HEMETOLOGY METHOD 06/08/2025 8:04 AM [facility] Blood Venous blood specimen / Unknown Venipuncture / Unknown 06/08/2025 5:39 AM EDT 06/08/2025 7:38 AM EDT us Any Hernandez MD LAB BLOOD ORDERABLES Final Resul t Performing Organization Address City/[facility]/ZIP Co de Phone Number [facility] [address] [place] [address], [place] [phone] * (ABNORMAL) Hemoglobin A1c (06/08/2025 5:39 AM EDT) Hemoglobin A1C 7.1(H) <6.5 % LAB CHEMISTRY METHOD 06/08/2025 1:04 PM EDT [facility] Mean Bld Glu Estim. 157 mg/dL LAB CHEMISTRY METHOD 06/08/2025 1:04 PM EDT [facility] Blood Venous blood specimen / Unknown Venipuncture / Unknown 06/08/2025 5:39 AM EDT 06/08/2025 7:38 AM EDT us Any Hernandez MD LAB BLOOD ORDERABLES Final Resul t Performing Organization Address [facility]/ZIP Co de Phone Number [facility] [address] [place] [address], [place] [phone] * (ABNORMAL) Comprehensive metabolic panel (06/08/2025 5:39 AM EDT) Sodium 142 133 - 145 mmol/L LAB CHEMISTRY METHOD 06/08/2025 8:21 AM EDT [facility] Potassium 4.7 3.5 - 5.5 mmol/L LAB CHEMISTRY METHOD 06/08/2025 8:21 AM EDT [facility] Chloride 111(H) 96 - 110 mmol/L LAB CHEMISTRY METHOD 06/08/2025 8:21 AM EDT [facility] CO2 27 21 - 32 mmol/L LAB CHEMISTRY METHOD 06/08/2025 8:21 AM EDT [facility] Anion Gap 4 3 - 11 LAB CHEMISTRY METHOD 06/08/2025 8:21 AM EDT [facility] Glucose 134(H) 70 - 100 mg/dL LAB CHEMISTRY METHOD 06/08/2025 8:21 AM [facility] BUN 7 5 - 25 mg/dL LAB CHEMISTRY METHOD 06/08/2025 8:21 AM [facility] Creatinine 0.80 0.50 - 1.10 mg/dL LAB CHEMISTRY METHOD 06/08/2025 8:21 AM [facility] eGFR 73 >=60 mL/min/1. 73m2 LAB CHEMISTRY METHOD 06/08/2025 8:21 AM [facility] Comment:Calculation based on the Chronic Kidney Disease Epidemiology Collaboration (CKD-EPI) equation refit without adjustment for race. BUN/Creatinine Ratio 8.8 LAB CHEMISTRY METHOD 06/08/2025 8:21 AM [facility] Calcium 8.4(L) 8.5 - 10.5 mg/dL LAB CHEMISTRY METHOD 06/08/2025 8:21 AM [facility] AST (SGOT) 49(H) 10 - 42 unit/L LAB CHEMISTRY METHOD 06/08/2025 8:21 AM [facility] ALT (SGPT) 53 10 - 60 unit/L LAB CHEMISTRY METHOD 06/08/2025 8:21 AM [facility] Alkaline Phosphatase 62 42 - 121 unit/L LAB CHEMISTRY METHOD 06/08/2025 8:21 AM [facility] Total Protein 5.5(L) 6.0 - 8.0 g/dL LAB CHEMISTRY METHOD 06/08/2025 8:21 AM [facility] Albumin 2.3(L) 3.2 - 5.0 g/dL LAB CHEMISTRY METHOD 06/08/2025 8:21 AM [facility] Total Bilirubin 0.3 0.0 - 1.4 mg/dL LAB CHEMISTRY METHOD 06/08/2025 8:21 AM [facility] Blood Venous blood specimen / Unknown Venipuncture / Unknown 06/08/2025 5:39 AM EDT 06/08/2025 7:38 AM EDT us Any Hernandez MD LAB BLOOD ORDERABLES Final Resul t [facility] [address] [place] [address], from Last 3 Months Insurance MEDICARE Care Teams Medical Laboratory Technical Officer Relationship Specialty Start Date End Date Cuate Oscar MD [address] [place] [address] Dr Aide Grimaldo [place] PCP - General Internal Medicine 11/11/21
--- OUTSIDE RECORDS SUMMARY | 2025-08-07 12:26 | XMS_ITS | Encounter Summary ---
Author Organization [facility] Address [address] [place] [address] Care Team Providers Care Dye Lab Technician Name Role Phone Cuate Oscar MD Primary Care Provider + [phone] Encounter Details Date Type Department Care Team (Late Contact Info) Description 06/12/2025 Lab Requisition [facility] Lab [address] [place] [phone] Any Hernandez MD [address] [place] [phone] Other seizures (CMS/HCC V24, CMS/HCC V28) Social [...] Department Care Team (Late Contact Info) Description 07/21/2026 10:45 AM EST Office Visit Endocrinology - [place] [address] [place] [phone] Marta Milian PA [address] [place] [address] documented as of this encounter Procedures Procedure Name Priority Date/Time Associated Diagnosis Comments LEVETIRACETAM LEVEL Routine 06/12/2025 7 :15 AM EDT Other seizures (CMS/HCC V24, CMS/HCC V28) documented in this encounter Results * Levetiracetam level (06/12/2025 7:15 AM EDT) Levetiracetam 32.5 3.0 - 60.0 ug/mL 06/16/2025 7:15 AM EDT [facility] Comment: Steady state trough serum or plasma levels following doses of 1000 to 3000 mg/Day: 3 to 37 ug/mL. The same dosage regimen will typically result in peak levels of 10 to 60 ug/mL, at approximately 1.5 hours post dose. If applicable, any drug confirmation testing reported here was developed and the performance characteristics determined by [facility]. This confirmation testing has not been cleared or approved by the FDA. The laboratory is regulated under CLIA as qualified to perform high-complexity testing. This test is used for patient testing purposes. It should not be regarded as investigational or for research. Test performed at [facility], [address], [place] [address] Heather Albert MD, PhD - Student Services Vice President Blood Venous blood specimen / Unknown Venipuncture / Unknown 06/12/2025 7:15 AM EDT 06/12/2025 8:59 AM EDT us Any Hernandez MD LAB BLOOD ORDERABLES Final Resul t [facility] [address] [place] [address] documented in this encounter Visit Diagnoses Diagnosis Other seizures (CMS/HCC V24, CMS/HCC V28) documented in this encounter Care Teams Dye Lab Technician Relationship Specialty Start Date End Date Cuate Oscar MD [address] [place] [address] Dr Aide [address] Grimaldo PCP - General Internal Medicine 11/11/21 documented as of this encounter
--- OUTSIDE RECORDS SUMMARY | 2025-08-07 12:26 | XMS_ITS | Encounter Summary ---
Author Organization [facility] Address [address] [place] [address] Care Team Providers Care Stained Glass Painter Name Role Phone Cuate Oscar MD Primary Care Provider + [phone] Encounter Details Date Type Department Care Team (Latest Contact Info) Description 06/08/2025 Lab Requisition [facility] - Main Lab [address] [place] [phone] Any Hernandez MD [address] [place] [phone] Pneumonia, unspecified organism; Chronic kidney disease, unspecified; [...] 10:45 AM EST Office Visit Endocrinology - [place] [address] [place] [phone] Marta Milian PA [address] [place] [address] documented as of this encounter Procedures Procedure Name Priority Date/Time Associated Diagnosis Comments COMPLETE BLOOD COUNT Routine 06/08/2025 5:39 AM EDT Pneumonia, unspecified organism Chronic kidney disease, unspecified Type 2 diabetes mellitus without complications ([facility] [place] [place] V24, [facility] [place] [place] V28) Vitamin D deficiency, unspecified HEMOGLOBIN A1C Routine 06/08/2025 5:39 AM EDT Pneumonia, unspecified organism Chronic kidney disease, unspecified Type 2 diabetes mellitus without complications ([facility] V24, [facility] [place] [place] V28) Vitamin D deficiency, unspecified COMPREHENSIVE METABOLIC PANEL Routine 06/08/2025 5:39 AM EDT Pneumonia, unspecified organism Chronic kidney disease, unspecified Type 2 diabetes mellitus without complications ([facility] [place] [place] V24, [facility] [place] [place] V28) Vitamin D deficiency, unspecified documented in this encounter Results * (ABNORMAL) Hemoglobin A1c (06/08/2025 5:39 AM EDT) Pathologist [facility] [place] Hemoglobin A1C 7.1(H) <6.5 % LAB CHEMISTRY METHOD 06/08/2025 1:04 PM EDT [facility] Mean Bld Glu Estim. 157 mg/dL LAB CHEMISTRY METHOD 06/08/2025 1:04 PM EDT [facility] Blood Venous blood specimen / Unknown Venipuncture / Unknown 06/08/2025 5:39 AM EDT 06/08/2025 7:38 AM EDT us Any Hernandez MD LAB BLOOD ORDERABLES Final Resul t [facility] [address] [place] [address], * (ABNORMAL) Comprehensive metabolic panel (06/08/2025 5:39 AM EDT) Pathologist [facility] [place] Sodium 142 133 - 145 mmol/L LAB CHEMISTRY METHOD 06/08/2025 8:21 AM EDT [facility] Potassium 4.7 3.5 - 5.5 mmol/L LAB CHEMISTRY METHOD 06/08/2025 8:21 AM [facility] Chloride 111(H) 96 - 110 mmol/L LAB CHEMISTRY METHOD 06/08/2025 8:21 AM [facility] CO2 27 21 - 32 mmol/L LAB CHEMISTRY METHOD 06/08/2025 8:21 AM [facility] Anion Gap 4 3 - 11 LAB CHEMISTRY METHOD 06/08/2025 8:21 AM [facility] Glucose 134(H) 70 - 100 mg/dL LAB CHEMISTRY METHOD 06/08/2025 8:21 AM [facility] BUN 7 5 - 25 mg/dL LAB CHEMISTRY METHOD 06/08/2025 8:21 AM [facility] Creatinine 0.80 0.50 - 1.10 mg/dL LAB CHEMISTRY METHOD 06/08/2025 8:21 AM [facility] eGFR 73 >=60 mL/min/1. 73m2 LAB CHEMISTRY METHOD 06/08/2025 8:21 AM [facility] Comment:Calculation based on the Chronic Kidney Disease Epidemiology Collaboration (CKD-EPI) equation refit without adjustment for race. BUN/Creatinine Ratio 8.8 LAB CHEMISTRY METHOD 06/08/2025 8:21 AM [facility] Calcium 8.4(L) 8.5 - 10.5 mg/dL LAB CHEMISTRY METHOD 06/08/2025 8:21 AM [facility] AST (SGOT) 49(H) 10 - 42 unit/L LAB CHEMISTRY METHOD 06/08/2025 8:21 AM [facility] ALT (SGPT) 53 10 - 60 unit/L LAB CHEMISTRY METHOD 06/08/2025 8:21 AM [facility] Alkaline Phosphatase 62 42 - 121 unit/L LAB CHEMISTRY METHOD 06/08/2025 8:21 AM [facility] Total Protein 5.5(L) 6.0 - 8.0 g/dL LAB CHEMISTRY METHOD 06/08/2025 8:21 AM EDT [facility] Albumin 2.3(L) 3.2 - 5.0 g/dL LAB CHEMISTRY METHOD 06/08/2025 8:21 AM [facility] Total Bilirubin 0.3 0.0 - 1.4 mg/dL LAB CHEMISTRY METHOD 06/08/2025 8:21 AM T [facility] Blood Venous blood specimen / Unknown Venipuncture / Unknown 06/08/2025 5:39 AM EDT 06/08/2025 7:38 AM EDT us Any Hernandez MD LAB BLOOD ORDERABLES Final Resul t [facility] [address] [place] [address], * (ABNORMAL) Complete blood count (06/08/2025 5:39 AM EDT) WBC 5.2 4.8 - 10.8 K/mcL LAB HEMETOLOGY METHOD 06/08/2025 8:04 AM [facility] RBC 3.00(L) 3.80 - 4.80 M/mcL LAB HEMETOLOGY METHOD 06/08/2025 8:04 AM [facility] Hemoglobin 9.3(L) 11.5 - 16.0 g/dL LAB HEMETOLOGY METHOD 06/08/2025 8:04 AM T [facility] Hematocrit 29.2(L) 35.0 - 47.0 % LAB HEMETOLOGY METHOD 06/08/2025 8:04 AM EDT [facility] MCV 96.1 79.0 - 98.0 FL LAB HEMETOLOGY METHOD 06/08/2025 8:04 AM [facility] MCH 30.6 27.0 - 32.0 pcg LAB HEMETOLOGY METHOD 06/08/2025 8:04 AM EDT [facility] MCHC 31.8(L) 32.0 - 37.0 g/dL LAB HEMETOLOGY METHOD 06/08/2025 8:04 AM EDT [facility] RDW 14.6 11.0 - 15.0 % LAB HEMETOLOGY METHOD 06/08/2025 8:04 AM EDT [facility] Platelets 315 130 - 400 K/mcL LAB HEMETOLOGY METHOD 06/08/2025 8:04 AM EDT [facility] MPV 9.7 7.0 - 11.0 FL LAB HEMETOLOGY METHOD 06/08/2025 8:04 AM EDT [facility] NRBC 0.0 <1.0 % LAB HEMETOLOGY METHOD 06/08/2025 8:04 AM EDT [facility] NRBC Absolute 0.00 <0.10 K/mcL LAB HEMETOLOGY METHOD 06/08/2025 8:04 AM EDT [facility] Blood Venous blood specimen / Unknown Venipuncture / Unknown 06/08/2025 5:39 AM EDT 06/08/2025 7:38 AM EDT us Any Hernandez MD LAB BLOOD ORDERABLES Final Resul t [facility] [address] [place] [address], documented in this encounter Visit Diagnoses Diagnosis Pneumonia, unspecified organism Chronic kidney disease, unspecified Type 2 diabetes mellitus without complications (CMS/HCC V24, CMS/HCC V28) Vitamin D deficiency, unspecified documented in this encounter Care Teams Stained Glass Painter Relationship Specialty Start Date End Date Cuate Oscar MD [address] [place] [address] [place] [address] PCP - General Internal Medicine 11/11/21 documented as of this encounter
[2025-08-07 12:30] LABS: Folate 12.9 ng/mL (> or = 4.0); Vitamin B12 888 pg/mL (200-900)
[2025-08-07 12:51] LABS: Appearance Urine Cloudy; Glucose Urine UA Negative (Negative); PH 5.5 (5.0-9.0); Specific Gravity - Urine 1.015 (1.005-1.025); UMIC TRIGGER UACC YES
[2025-08-07 13:02] LABS: UACC Culture Trigger YES
[2025-08-07 13:56] LABS: Alanine Aminotransferase 43 U/L (0-31); Albumin Level 4.1 g/dL (3.5-5.0); Alkaline Phosphatase 52 U/L (39-117); Anion Gap 14 (12-20); Aspartate Amino Transferase 43 U/L (5-31); Blood Urea Nitrogen 17 mg/dL (9-16); Calcium 9.4 mg/dL (8.4-10.2); Carbon Dioxide 24 mmol/L (22-29); Chloride 106 mmol/L (96-108); Cholesterol 113 mg/dL (<200); Estimated Glomerular Filt Rate > 60; HDL Cholesterol 52 mg/dL (>40); Magnesium 1.8 mg/dL (1.6-2.6); Potassium 5.7 mmol/L (3.3-5.1); Sodium 138 mmol/L (135-145); Total Protein 6.9 g/dL (6.5-8.0); Triglycerides 69 mg/dL (<150)
== END 2025-08-07 10:07 | disposition home or self-care (01) ==
LOC: HO.LAB 10:06
PROVIDERS: PCP Internal Medicine; Visit Provider Internal Medicine
DX: E53.8 Deficiency of other specified B group vitamins (principal); E83.42 Hypomagnesemia; D64.9 Anemia, unspecified; E78.00 Pure hypercholesterolemia, unspecified; R30.0 Dysuria
CPT/HCPCS: 36415; 80053; 80061; 81001; 82306; 82607; 82746; 83735; 84443; 85025; 87086